=== PATIENT | female | born 1955 | race Caucasian/White ===

== ENCOUNTER 2018-02-05 09:48 | Emergency (ER) | payer MEDICAID, SELFPAY ==
[2018-02-05 09:49] VITALS: PULSE 82; RESP 19; TEMP 36.8; O2SAT 97; BMI 45.3
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
[2018-02-05 09:57] VITALS: BP 165/92
[2018-02-05] MEDS: Ondansetron 4 MG/2 ML Vial IV (10:09)
[2018-02-05] MEDS: 0.9% Normal Saline 1,000 ML 150 ML IV (10:09)
[2018-02-05] MEDS: Morphine 4 MG/ML Syringe IV (10:09)
[2018-02-05 10:24] LABS: Absolute Neutrophil Count 5.7 X10^3/uL (2.0-7.7); Basophil# 0.03 X10^3/uL; Basophil% 0.3 % (0-1); Eosinophil# 0.29 X10^3/uL; Eosinophils% 3.2 % (0-5); Hematocrit 42.9 % (37-47); Hemoglobin 14.3 g/dl (12.0-15.0); Lymphocyte % 26.4 % (19-41); Mean Corp Hgb Conc 33.3 g/gl (32-36); Mean Corpuscular Hgb 29.6 pg (27.0-32.0); Mean Corpuscular Volume 88.8 fL (81-99); Mean Platelet Vol. 9.4 fl (6.2-12.0); Monocyte# 0.66 X10^3/uL; Monocyte% 7.3 % (0-10); Neutrophil # 5.68 X10^3/uL (2.7-7.7); Neutrophil % 62.6 % (47-70); Platelet Count 224 K/mm3 (150-450); RBC Distribution Width CV 13.4 % (11.6-14.6); RBC Distribution Width SD 43.9 fl (35.1-43.9); Red Blood Count 4.83 M/mm3 (4.2-5.4); White Blood Count 9.1 K/mm3 (4.4-11.0)
[2018-02-05 10:25] LABS: POSITIVE COUNT NO; POSITIVE DIFFERENTIAL NO; POSITIVE MORPHOLOGY NO
[2018-02-05 10:40] LABS: ALB/GLOB Ratio 0.9 RATIO (0.9-2.4); AST(SGOT) 18 U/L (15-37); Alanine Aminotransfer ALT/SGPT 31 U/L (13-56); Albumin, Serum 3.5 g/dL (3.2-5.0); Alkaline Phosphatase 71 U/L (45-117); Anion Gap 10 (5-15); BUN 18 mg/dL (7-18); BUN/Creat Ratio 17.3 RATIO (10-20); Calcium,Total 8.2 mg/dL (8.5-10.1); Chloride 110 mmol/L (98-107); Creatinine, Serum 1.04 mg/dL (0.55-1.02); EST Glomerular Filtration Rate 57 mL/min (>60); Est Glom Filt Rate - Afr Amer 69 mL/min (>60); Estimated Creatinine Clearance 53.14 ml/min; Globulin 3.9 g/dL (2.2-4.2); Glucose 128 mg/dL (74-106); Lipase 347 U/L (73-393); Potassium 4.2 mmol/L (3.5-5.1); Protein, Total 7.4 g/dL (6.4-8.2); Sodium Level 142 mmol/L (136-145)
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
[2018-02-05 11:29] VITALS: BP 130/94; PULSE 76; RESP 18; O2SAT 99
[2018-02-05 12:15] VITALS: BP 154/76; PULSE 75; RESP 18; O2SAT 96
[2018-02-05] MEDS: Ketorolac 30 MG/ML Syringe IV (12:24)
[2018-02-05 12:26] LABS: Bacteria 0 SEEN /hpf (None Seen); Mucous, Urine 0 SEEN /hpf (<or=2+); Red Blood Cells-Urine 0 SEEN /hpf (0-5)
[2018-02-05 12:28] LABS: Color, Urine Yellow (Yellow); Glucose, Dipstick Normal (Normal); Ketone-Dipstick Negative (Negative); Leukocyte Esterase-Dipstick 100 /ul (Negative); Nitrite-Dipstick Positive (Negative); Occult Blood-Urine 10 /ul (Negative); Protein-Dipstick Negative (Negative); Urine Bilirubin Dipstick Negative (Negative); Urine Clarity Clear (Clear); Urine Urobilinogen Normal (Normal)
[2018-02-05 12:33] LABS: Squamous Epithelial Cells - UA 0-5 SEEN /hpf (5-10); White Blood Cells 0-5 SEEN /hpf (0-5)
[2018-02-05 13:26] VITALS: BP 141/65; PULSE 78; RESP 18; O2SAT 96
== END 2018-02-05 13:39 | disposition home or self-care (01) ==
PROVIDERS: Emergency Provider Emergency Medicine; Family Provider Student in an Organized Health Care Education/Training Program; PCP Student in an Organized Health Care Education/Training Program
DX: S22.42XA Multiple fractures of ribs, left side, initial encounter for closed fracture (principal); S80.02XA Contusion of left knee, initial encounter; V49.40XA Driver injured in collision with unspecified motor vehicles in traffic accident, initial encounter; Y93.9 Activity, unspecified; Y92.9 Unspecified place or not applicable; Y99.9 Unspecified external cause status; I49.3 Ventricular premature depolarization; E66.9 Obesity, unspecified; Z79.899 Other long term (current) drug therapy
CPT/HCPCS: 70450; 71260; 72125; 73560; 74177; 80053; 81001; 83690; 84484; 85025; 93005; 96361; 96374; 96375; 99285; J7030; Q9967; A4216; J2405

== ENCOUNTER 2021-08-01 15:49 | Inpatient (IN) | payer MEDICARE, MEDICAID, SELFPAY ==
[2021-08-01] VITALS (18 sets, daily range): BP systolic 95–172; BP diastolic 59–106; PULSE 80–145; RESP 15–24; TEMP 36.6–37.1; O2SAT 91–97; BMI 41.0; BMI 39.5
--- NOTE | 2021-08-01 16:16 | EKG12_ITS ---
Test Reason : PALPITATIONS Blood Pressure : / mmHG Vent. Rate : 136 BPM Atrial Rate : 136 BPM P-R Int : 000 ms QRS Dur : 090 ms QT Int : 314 ms P-R-T Axes : 000 046 107 degrees QTc Int : 472 ms Atrial fibrillation with premature ventricular or aberrantly conducted complexes Nonspecific T wave abnormality Abnormal ECG Confirmed by ALEXANDER BARRAZA, ISHMAEL ([id number]), department editor JAILENE KEARNEY ([id number]) on 08/04/2021 10:54:23 AM Referred By: PAUL Confirmed By:ISHMAEL MUNOZ MD
--- NOTE | 2021-08-01 16:19 | EX.ED.DYSGE1 ---
HPI History of Present Illness Chief Complaint: Palpitations Narrative Narrative: Patient presents with shortness of breath since last night last night was mostly at rest, now only with exertion. She feels no palpitations, she does not know exactly when this started. She has been feeling somewhat weak over the past few days. No recent fever or chills. She is denying chest pain. No back pain or tearing sensation. No recent weight loss or neck pain. No lower extreme edema or calf pain or recent DVT or PE risk factors. PFSH PFS Medical History Arthritis High cholesterol Home Medications NK 08/01/21 [History Last Taken Unknown] Allergy/AdvReac Type Severity Reaction Status Date / Time piperacillin [From Zosyn] Allergy Rash Verified 08/01/21 15:54 tazobactam [From Zosyn] Allergy Rash Verified 08/01/21 15:54 Surgical History H/O total hip arthroplasty Social History Smoking Status: Former smoker ROS ROS ED ROS Narrative Past medical history: Patient has not had any medical care in the past few years, she does not take any medication she has not had any blood pressure checks. Medications: None Social history: Noncontributory Review of systems: All systems negative except as indicated General: No fever. Generalized weakness as in HPI Eyes: No visual changes ENT: No upper airway congestion, normal voice Neck: No neck pain Cardiovascular: No chest pain Respiratory: Dyspnea as in HPI Gastrointestinal: No abdominal pain, nausea vomiting or diarrhea Genitourinary: No dysuria Musculoskeletal: Denies myalgias no difficulty with ambulation Skin: No rash Neurological: No memory loss, confusion or any focal weakness Psych: No recent behavioral changes Hematologic: No easy bleeding or easy bruising EXAM Physical Exam Narrative Exam Narrative: Physical exam General: Well nourished, Well developed, No Acute Distress. She appears comfortable. Head: Normocephalic, Atraumatic Eyes: Conjunctiva not pale ENT: Moist mucous membranes Neck: Supple, Nontender, No lymphadenopathy Cardiovascular: Irregular tachycardia no obvious murmur Respiratory: No distress, CTA bilaterally Abdomen: Soft, Nontender, Nondistended Back: Nontender, Normal Inspection. Negative for: CVA tenderness Extremities: Nontender, No edema Skin: Normal color, No rash Neurological: Alert, Normal Strength, Normal Sensation Psychological: Normal affect Const Vital Signs: 08/01/21 15:50 08/01/21 16:25 Temperature 98 F Temperature Source Temporal Pulse Rate 145 H 87 Respiratory Rate 16 17 Blood Pressure 172/93 H 142/92 H Blood Pressure Mean 119 108 Pulse Ox 93 94 Oxygen Delivery Method Room Air Room Air MDM MDM MDM Narrative Medical decision making narrative: Patient is found to have new onset A. fib. I gave her Cardizem her rate has improved therefore I gave her oral Cardizem. I gave her Lovenox. Because this is new onset and I am not sure when this started I will admit for further work-up. Lab Data Labs: Laboratory Results - last 24 hr 08/01/21 08/01/21 08/01/21 15:55 15:55 15:55 WBC 12.4 H RBC 5.71 H Hgb 17.2 H Hct 51.5 H MCV 90.2 MCH 30.1 MCHC 33.4 RDW Std Deviation 45.0 H RDW Coeff of Kurtis 13.6 Plt Count 214 MPV 9.8 Immature Gran % (Auto) 0.300 Neut % (Auto) 67.6 Lymph % (Auto) 23.7 Blackford % (Auto) 7.2 Eos % (Auto) 0.8 Baso % (Auto) 0.4 Absolute Neuts (auto) 8.4 H Absolute Lymphs (auto) 2.94 Nucleated RBC % 0 Sodium 142 Potassium 4.2 Chloride 113 H Carbon Dioxide 22.0 Anion Gap 7 BUN 17 Creatinine 1.26 H Estim Creat Clear Calc 42.13 Est GFR (MDRD) Af Amer 54 L Est GFR (MDRD) Non-Af 45 L BUN/Creatinine Ratio 13.5 Glucose 118 H Calcium 9.3 Magnesium 1.8 Total Bilirubin 0.70 AST 17 ALT 27 Alkaline Phosphatase 76 Troponin I High Sens 106 H B-Natriuretic Peptide 613.7 H Total Protein 7.9 Albumin 3.8 Globulin 4.1 Albumin/Globulin Ratio 0.9 TSH 1.80 EKG Initial EKG: Comments: Atrial fibrillation with a rate of 136. Normal QTC. No obvious ischemic changes. Interpreted by emergency doctor Discharge Plan Triage Chief Complaint: Palpitations ED Provider: Edi Michelle Dx/Rx/DC Orders Clinical Impression: Atrial fibrillation, new onset Prescriptions: No Action NK RF: 0 Primary Care Provider: Bean Brower Referrals: Bean Brower DO [Primary Care Provider] - Disposition Disposition: Acute Care Hospital [facility]
[2021-08-01] MEDS: dilTIAZem 25 MG/5 ML Vial 20 MG IV BOLUS (16:21)
[2021-08-01 16:39] LABS: Absolute Lymphocyte Count 2.94 X10^3/uL (0.83-4.51); Absolute Neutrophil Count 8.4 X10^3/uL (2.0-7.7); Basophil# 0.05 X10^3/uL; Basophil% 0.4 % (0-1); Eosinophils% 0.8 % (0-5); Hematocrit 51.5 % (37-47); Hemoglobin 17.2 g/dL (12.0-15.0); Lymphocyte # 2.94 X10^3/ul (0.83-4.51); Lymphocyte % 23.7 % (19-41); Mean Corp Hgb Conc 33.4 g/dL (32-36); Mean Corpuscular Hgb 30.1 pg (27.0-32.0); Mean Corpuscular Volume 90.2 fL (81-99); Mean Platelet Vol. 9.8 fl (6.2-12.0); Monocyte# 0.89 X10^3/uL; Monocyte% 7.2 % (0-10); NRBC Flagged by Analyzer 0 % (0-5); Neutrophil # 8.37 X10^3/uL (2.7-7.7); Neutrophil % 67.6 % (47-70); Platelet Count 214 K/mm3 (150-450); RBC Distribution Width CV 13.6 % (11.6-14.6); Red Blood Count 5.71 M/mm3 (4.2-5.4); White Blood Count 12.4 K/mm3 (4.4-11.0)
[2021-08-01 17:07] LABS: ALB/GLOB Ratio 0.9 RATIO (0.9-2.4); AST(SGOT) 17 U/L (15-37); Alanine Aminotransfer ALT/SGPT 27 U/L (13-56); Albumin, Serum 3.8 g/dL (3.2-5.0); Alkaline Phosphatase 76 U/L (45-117); Anion Gap 7 (5-15); BUN 17 mg/dL (7-18); BUN/Creat Ratio 13.5 RATIO (10-20); Calcium,Total 9.3 mg/dL (8.5-10.1); Chloride 113 mmol/L (98-107); Creatinine, Serum 1.26 mg/dL (0.55-1.02); EST Glomerular Filtration Rate 45 mL/min (>60); Est Glom Filt Rate - Afr Amer 54 mL/min (>60); Estimated Creatinine Clearance 42.13 ml/min; Globulin 4.1 g/dL (2.2-4.2); Glucose 118 mg/dL (74-106); Magnesium 1.8 mg/dL (1.6-2.6); Potassium 4.2 mmol/L (3.5-5.1); Protein, Total 7.9 g/dL (6.4-8.2); Sodium Level 142 mmol/L (136-145); Troponin-I HS 106 pg/mL (3.0-54.0)
[2021-08-01 17:33] LABS: BNP,B-Type NATRIURETIC PEPTIDE 613.7 pg/mL (0-100)
[2021-08-01] MEDS: dilTIAZem CD 240 MG Capsule PO (17:55)
[2021-08-01] MEDS: Enoxaparin 120 MG/0.8 ML Syringe SC (17:55)
--- NOTE | 2021-08-01 18:35 | PCM.HP.STD ---
HPI - General General Date of Admission: 08/01/21 Date of Service: 08/01/21 Chief Complaint: shortness of breath HPI Narrative BEULAH MCPHERSON, is a 65 F who presents presents with shortness of breath. Patient has had palpitations and shortness of breath for some time now but would resolve spontaneously but beginning last night she was very short of breath. Did not getting better so she presented to the emergency room. She was found to be in A. fib with RVR and received 20 mg of IV diltiazem. Helped her heart rate from the 120s to 100s and when to go back up in the 120s again. Patient thinks that she may have had A. fib before given the palpitations but has never sought attention for this. Patient has not sought medical attention for the past 3 years. 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 She denies any chest pain and is currently breathing fine on room air at 96%. [facility] Medical History Arthritis COVID Former smoker High cholesterol Kidney stones Migraines Osteoarthritis (arthritis due to wear and tear of joints) Home Medications acetaminophen 500 mg PO DAILY PRN 08/01/21 [History Last Taken 07/31/21] ibuprofen 800 mg PO TID PRN 08/01/21 [History Last Taken 08/01/21] Allergy/AdvReac Type Severity Reaction Status Date / Time piperacillin [From Zosyn] Allergy Rash Verified 08/01/21 15:54 tazobactam [From Zosyn] Allergy Rash Verified 08/01/21 15:54 Family History Father CVA (cerebral vascular accident) Colon cancer Surgical History H/O total hip arthroplasty Social History Smoking Status: Former smoker ROS ROS Narrative All review of systems were negative except as mentioned above in the history of present illness and the other review of systems. Vital Signs Vital Signs Vital Signs: 08/01/21 15:50 08/01/21 16:25 08/01/21 17:00 Temperature 36.6 C Temperature Source Temporal Pulse Rate 145 H 87 101 H Respiratory Rate 16 17 16 Blood Pressure 172/93 H 142/92 H 120/90 H Blood Pressure Mean 119 108 100 Pulse Ox 93 94 94 Oxygen Delivery Method Room Air Room Air Room Air 08/01/21 18:13 Temperature 36.6 C Temperature Source Temporal Pulse Rate 126 H Respiratory Rate 20 H Blood Pressure 114/95 H Blood Pressure Mean 101 Pulse Ox 96 Oxygen Delivery Method Room Air Weight Weight: 118.8 kg Body Mass Index (BMI) 41.0 Physical Exam Const alert Constitutional Narrative: No respiratory distress. No conversational dyspnea. General Appearance: cooperative HEENT normocephalic and head/scalp atraumatic Eyes Eyes Narrative: No icterus Neck no lymphadenopathy and no JVD Resp normal respiratory effort, no retractions, no use of accessory muscles and clear to auscultation bilaterally Cardio Cardio Narrative: Irregularly irregular GI normal to inspection, nondistended, normoactive bowel sounds, soft to palpation, non-tender and non-distended Extremity normal to inspection and full ROM Skin no rashes or lesions noted Neuro Sensorium / Orientation: awake and alert Psych affect normal Results Lab / Micro Data Attestation: I reviewed the patient's lab results. Result Diagrams: 08/01/21 15:55 08/01/21 15:55 Labs: Laboratory Results - last 24 hr 08/01/21 15:55: WBC 12.4 H, RBC 5.71 H, Hgb 17.2 H, Hct 51.5 H, MCV 90.2, MCH 30.1, MCHC 33.4, RDW Std Deviation 45.0 H, RDW Coeff of Kurtis 13.6, Plt Count 214, MPV 9.8, Immature Gran % (Auto) 0.300, Neut % (Auto) 67.6, Lymph % (Auto) 23.7, Mcdonough % (Auto) 7.2, Eos % (Auto) 0.8, Baso % (Auto) 0.4, Absolute Neuts (auto) 8.4 H, Absolute Lymphs (auto) 2.94, Nucleated RBC % 0 08/01/21 15:55: Sodium 142, Potassium 4.2, Chloride 113 H, Carbon Dioxide 22.0, Anion Gap 7, BUN 17, Creatinine 1.26 H, Estim Creat Clear Calc 42.13, Est GFR (MDRD) Af Amer 54 L, Est GFR (MDRD) Non-Af 45 L, BUN/Creatinine Ratio 13.5, Glucose 118 H, Calcium 9.3, Magnesium 1.8, Total Bilirubin 0.70, AST 17, ALT 27, Alkaline Phosphatase 76, Troponin I High Sens 106 H, Total Protein 7.9, Albumin 3.8, Globulin 4.1, Albumin/Globulin Ratio 0.9, TSH 1.80 08/01/21 15:55: B-Natriuretic Peptide 613.7 H EKG Initial EKG: Attestation: I personally reviewed and interpreted this EKG as follows: Prior EKG tracings: available for review EKG Rhythm Intrepretation: Atrial Fibrillation (With RVR) Assessment & Plan Assessment/Plan (1) Atrial fibrillation, new onset: (2) Elevated troponin I level: PLAN: 1. Atrial fibrillation with RVR New diagnosis but suspect the patient has probably had A. fib for some time she is just not sought attention for her palpitations in the past Patient received oral as well as IV diltiazem in the emergency room but still tachycardic. We will give her another bolus and started on diltiazem drip Check 2D echocardiogram Consult cardiology Check TSH Will anticoagulate with enoxaparin for now. Barring any kind of valvular abnormalities patient can probably change attendant to 10a inhibitor 2. Elevated troponins Suspect due to demand mismatch given A. fib with RVR Cycle troponins 3. Chronic kidney disease stage IIIa Last creatinine was slightly better from 2018 Continue to monitor for now 4. Polycythemia Unclear significance Continue to monitor Patient was very concerned about the but told her that she is not seen a physician in years and this will need to be followed up as outpatient Patient is a non-smoker and has no underlying lung disease May require hematology evaluation but that can be done as outpatient 5. VTE prophylaxis not indicated as she will be anticoagulated 6. COVID-19 vaccination status: Patient is unvaccinated for COVID-19. She has at least had one time confirmed case of Covid and 2020 she was sick in May but was not tested at that time. 7. CODE STATUS: Addressed with the patient. Patient wishes to be full CODE STATUS. Charges/Coding Visit Charges Inpatient E&M: 32711 Init Hosp L3
--- NOTE | 2021-08-01 19:01 | ECHOCS_ITS ---
Reason For Study: Afib, Aflutter Procedure This was a 2D Doppler, Color Flow transthoracic echocardiogram. Contrast injection was performed. Exam performed portable in patient room. Left Ventricle Normal LV size. The estimated ejection fraction is 25 %. Moderately severe global left ventricular systolic dysfunction. There is moderate to severe global hypokinesis of the left ventricle. Right Ventricle Normal RV size. Normal systolic function. Atria Normal left atrium. Normal right atrium. Mitral Valve Normal mitral valve. Tricuspid Valve Normal tricuspid valve. Mild tricuspid valve insufficiency. Pulmonary artery systolic pressure is 28 mmHg. Aortic Valve Trisinus/trileaflet aortic valve. Pulmonic Valve The pulmonic valve is not well visualized. Great Vessels Normal aortic root. The pulmonary artery is normal size. Normal inferior vena cava. Pericardium/Pleural No pericardial effusion. Medication Diluted definity 3ml given slow IV push to enhance endocardial definition. MMode/2D Measurements & Calculations LVIDd: 5.7 cm IVSd: 1.0 cm Ao root diam: 3.3 cm LVIDs: 5.3 cm LVPWd: 0.88 cm RVDd: 4.1 cm FS: 5.9 % LAV(MOD-bp): 53.3 ml LVAd ap4: 24.1 cm2 SV(MOD-sp4): 11.9 ml LAV(MOD-bp) Indexed: 24.0 ml/m2 LVLd ap4: 6.9 cm LAV(MOD-sp2): 61.0 ml EDV(MOD-sp4): 67.4 ml LAV(MOD-sp4): 47.6 ml EDV(sp4-el): 71.6 ml LVAs ap4: 20.7 cm2 LVLs ap4: 6.2 cm ESV(MOD-sp4): 55.5 ml ESV(sp4-el): 58.1 ml EF(MOD-sp4): 17.7 % EF(sp4-el): 18.9 % SV(sp4-el): 13.6 ml LA A4 area: 18.7 cm2 LA dimension(2D): 4.5 cm RA A4 area: 15.3 cm2 Doppler Measurements & Calculations MV E max tayla: 71.8 cm/sec Ao V2 max: 81.8 cm/sec LV V1 max: 64.7 cm/sec Ao max P.7 mmHg LV V1 max P.7 mmHg Ao V2 mean: 60.3 cm/sec Ao mean P.6 mmHg Ao V2 VTI: 15.2 cm TR max tayla: 245.3 cm/sec TR max P.1 mmHg ECHO/Echo Complete W/ Contrast Interpretation Summary Normal LV size. The estimated ejection fraction is 25 %. Moderately severe global left ventricular systolic dysfunction. There is moderate to severe global hypokinesis of the left ventricle. Pulmonary artery systolic pressure is 28 mmHg. Contrast injection was performed. Ordering Physician: Doug Barrera Referring Physician: Bean Brower Performed By: Bri Remy, ALIREZA, RVT
[2021-08-01] MEDS: 0.9% Saline Lock 10 ML Syringe IV (19:49)
[2021-08-01] MEDS: dilTIAZem 25 MG/5 ML Vial 10 MG IV BOLUS (19:49)
[2021-08-01] MEDS: 0.9% Normal Saline 1,000 ML 150 ML IV (19:57)
[2021-08-01 20:05] LABS: Troponin-I HS 88 pg/mL (3.0-54.0)
[2021-08-01 22:19] LABS: Troponin-I HS 94 pg/mL (3.0-54.0)
[2021-08-02] VITALS (18 sets, daily range): BP systolic 113–143; BP diastolic 64–99; PULSE 65–101; RESP 13–21; TEMP 36.7–37; O2SAT 91–98
[2021-08-02 06:08] LABS: Absolute Neutrophil Count 5.3 X10^3/uL (2.0-7.7); Basophil# 0.06 X10^3/uL; Basophil% 0.7 % (0-1); Eosinophils% 2.2 % (0-5); Hematocrit 43.4 % (37-47); Hemoglobin 14.3 g/dL (12.0-15.0); Lymphocyte % 31.7 % (19-41); Mean Corp Hgb Conc 32.9 g/dL (32-36); Mean Corpuscular Hgb 28.9 pg (27.0-32.0); Mean Corpuscular Volume 87.9 fL (81-99); Mean Platelet Vol. 9.9 fl (6.2-12.0); Monocyte# 0.66 X10^3/uL; Monocyte% 7.2 % (0-10); NRBC Flagged by Analyzer 0 % (0-5); Neutrophil # 5.32 X10^3/uL (2.7-7.7); Platelet Count 171 K/mm3 (150-450); RBC Distribution Width CV 13.6 % (11.6-14.6); RBC Distribution Width SD 43.8 fl (35.1-43.9); Red Blood Count 4.94 M/mm3 (4.2-5.4); White Blood Count 9.2 K/mm3 (4.4-11.0)
[2021-08-02] MEDS: Acetaminophen 325 MG Tablet 650 MG PO ×2 (06:20→14:49)
[2021-08-02 06:51] LABS: Anion Gap 8 (5-15); BUN 15 mg/dL (7-18); BUN/Creat Ratio 16.9 RATIO (10-20); Calcium,Total 8.3 mg/dL (8.5-10.1); Chloride 114 mmol/L (98-107); Cholesterol 143 mg/dL (200); Creatinine, Serum 0.89 mg/dL (0.55-1.02); EST Glomerular Filtration Rate 67 mL/min (>60); Est Glom Filt Rate - Afr Amer 81 mL/min (>60); Estimated Creatinine Clearance 59.65 ml/min; Glucose 115 mg/dL (74-106); High Density Lipoprotein 27 mg/dL; Potassium 3.9 mmol/L (3.5-5.1); Sodium Level 141 mmol/L (136-145); Thyroid Stim Hormone (TSH) 1.62 uIU/mL (0.358-3.74); Triglycerides 147 mg/dL; Very Low Density Lipoprotein 29 mg/dL (5-40)
[2021-08-02] MEDS: Enoxaparin 120 MG/0.8 ML Syringe SC (08:37)
[2021-08-02] MEDS: 0.9% Saline Lock 10 ML Syringe IV (09:24)
[2021-08-02] MEDS: Metoprolol Tartrate 50 MG Tablet PO (09:24)
--- NOTE | 2021-08-02 09:45 | RAD_ITS ---
STUDY: X-RAY CHEST REASON FOR EXAM: Female, 65 years old. Shortness of breath TECHNIQUE: Frontal and lateral views of the chest. COMPARISON: September 09, 2013 FINDINGS: The lungs are clear and expanded. There is no demonstrated pleural abnormality. Normal size heart. Normal mediastinum and luis alfredo. Normal visualized pulmonary arteries. Normal visualized aortic arch and descending thoracic aorta. There are diffuse degenerative changes of the visualized thoracic spine. Normal visualized ribs, clavicles, and shoulders. There is no demonstrated abnormality of the visualized soft tissue structures of the upper abdomen. RAD/Chest PA and Lateral IMPRESSION: Degenerative changes, as described above. No demonstrated acute cardiopulmonary process. Electronically Signed: Jordi Tirado MD at 13:02 EST Reading Location ID and State: [facility] / [place] , Service support ,
--- NOTE | 2021-08-02 09:45 | RAD_ITS ---
STUDY: X-RAY - ABDOMEN/PELVIS REASON FOR EXAM: Female, 65 years old. Abdominal pain TECHNIQUE: AP supine and upright views of the abdomen and pelvis. COMPARISON: None. FINDINGS: Normal visualized lung bases. There is an unremarkable bowel gas pattern. There is no demonstrated free abdominal air. Normal soft tissue structures. There are diffuse degenerative changes of the visualized lumbar spine. There are bilateral hip replacements. RAD/Abd Inc Decub and/or Erect IMPRESSION: No obstruction. Electronically Signed: Jordi Tirado MD at 12:57 EST ,
--- NOTE | 2021-08-02 11:05 | CASEMGMT ---
BOB GUADARRAMA Assessment: Face to Face with pt for initial transition planning/care coordination assessment. BOB GUADARRAMA introduced self and role at [facility], pt voices understanding and consents to assessment. Pt is A/O x4 and answers all questions appropriately at this time. Pt sitting up in bed with O2 on in no distress. Pt had a visitor at bedside who stepped out during assessment. Care providers, pharmacy, and demographics verified/updated. Admitting Dx: Afib RVR PCP: [facility] Specialists:Pt denies. Preferred Pharmacy: [facility] if dc is on Wednesday, otherwise [facility]. Insurance: [employer]A HARVEY- Pt reports she has an [employer] Supplemental that she could not find the card to bring in. Prescription Benefit: yes LW/HPOA: Pt denies having a LW/DPOA and denies need for info regarding AD. LNOK: Ritu Velásquez, cousin Living Arrangements: Pt lives alone in a two story house with a ramp to enter. Pt reports she is I in ADL's and denies concerns at home. Transportation: Pt drives self and denies concerns with transportation. 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 Pt uses a cane normally. She has a hospital bed, BSC, 2 electric w/c, tomographic tech and walkers. Pt states she has had [facility] in the past and denies SNF stays. Pt states no concerns with going home at time of dc. She denies need for HHC. Pt states no further concerns/needs. CM to follow. Advised pt to ask CM if any further question/concerns/needs arise, voices understanding. Pt Goal: Home Plan: Home, follow for anticoag.
--- NOTE | 2021-08-02 12:05 | PN.HOSP_ITS ---
Subjective Subjective Feels short of breath today. Feels that her abdomen is getting more distended. Objective Data Objective Data Vital Signs: Vital Signs Temp Pulse Resp BP Pulse Ox 37.0 C 65 17 113/70 93 08/02/21 10:11 08/02/21 11:17 08/02/21 10:11 08/02/21 10:11 08/02/21 10:11 Oxygen Flow Rate (L/min) 2 Oxygen Delivery Method Room Air Weight: 114.5 kg Body Mass Index (BMI) 39.5 Intake & Output: Intake and Output for Last 24 Hours 07/31/21 08/01/21 08/02/21 23:59 23:59 23:59 Intake Total 1320.83 / 1325.83 547.58 / 547.58 Output Total 500 / 500 Balance 1320.83 / 1325.83 47.58 / 47.58 Lab / Micro Data Result Diagrams: 08/02/21 05:24 08/02/21 05:24 Labs: Laboratory Results - last 24 hr 08/01/21 15:55: WBC 12.4 H, RBC 5.71 H, Hgb 17.2 H, Hct 51.5 H, MCV 90.2, MCH 30.1, MCHC 33.4, RDW Std Deviation 45.0 H, RDW Coeff of Kurtis 13.6, Plt Count 214, MPV 9.8, Immature Gran % (Auto) 0.300, Neut % (Auto) 67.6, Lymph % (Auto) 23.7, [place] % (Auto) 7.2, Eos % (Auto) 0.8, Baso % (Auto) 0.4, Absolute Neuts (auto) 8.4 H, Absolute Lymphs (auto) 2.94, Nucleated RBC % 0 08/01/21 15:55: Sodium 142, Potassium 4.2, Chloride 113 H, Carbon Dioxide 22.0, Anion Gap 7, BUN 17, Creatinine 1.26 H, Estim Creat Clear Calc 42.13, Est GFR (MDRD) Af Amer 54 L, Est GFR (MDRD) Non-Af 45 L, BUN/Creatinine Ratio 13.5, Glucose 118 H, Calcium 9.3, Magnesium 1.8, Total Bilirubin 0.70, AST 17, ALT 27, Alkaline Phosphatase 76, Troponin I High Sens 106 H, Total Protein 7.9, Albumin 3.8, Globulin 4.1, Albumin/Globulin Ratio 0.9, TSH 1.80 08/01/21 15:55: B-Natriuretic Peptide 613.7 H 08/01/21 19:25: Troponin I High Sens 88 H 08/01/21 21:46: Troponin I High Sens 94 H 08/02/21 05:24: WBC 9.2, RBC 4.94, Hgb 14.3, Hct 43.4, MCV 87.9, MCH 28.9, MCHC 32.9, RDW Std Deviation 43.8, RDW Coeff of Kurtis 13.6, Plt Count 171, MPV 9.9, Immature Gran % (Auto) 0.200, Neut % (Auto) 58.0, Lymph % (Auto) 31.7, [place] % (Auto) 7.2, Eos % (Auto) 2.2, Baso % (Auto) 0.7, Absolute Neuts (auto) 5.3, Absolute Lymphs (auto) 2.90, Nucleated RBC % 0 08/02/21 05:24: Sodium 141, Potassium 3.9, Chloride 114 H, Carbon Dioxide 19.0 L , Anion Gap 8, BUN 15, Creatinine 0.89, Estim Creat Clear Calc 59.65, Est GFR (MDRD) Af Amer 81, Est GFR (MDRD) Non-Af 67, BUN/Creatinine Ratio 16.9, Glucose 115 H, Calcium 8.3 L, Triglycerides 147, Cholesterol 143, LDL Cholesterol 87, VLDL Cholesterol 29, HDL Cholesterol 27 L, TSH 1.62 Physical Exam Const alert and no apparent distress HEENT Head and Scalp: normocephalic Resp normal respiratory effort, no retractions, no use of accessory muscles and clear to auscultation bilaterally Cardio regular rate, regular rhythm, S1 normal heart sound and S2 normal heart sound GI normal to inspection, nondistended, normoactive bowel sounds, soft to palpation, non-tender and non-distended Extremity normal to inspection and full ROM Neuro oriented x3 Sensorium / Orientation: awake, alert and oriented to person Psych affect normal Assessment & Plan Assessment/Plan (1) Atrial fibrillation, new onset: (2) Elevated troponin I level: PLAN: 1. Atrial fibrillation with RVR New diagnosis but suspect the patient has probably had A. fib for some time she is just not sought attention for her palpitations in the past Patient received oral as well as IV diltiazem in the emergency room but still tachycardic. We will give her another bolus and started on diltiazem drip Check 2D echocardiogram Consult cardiology TSH with a normal limits Will anticoagulate with enoxaparin for now. Barring any kind of valvular abnormalities patient can probably changeover operator to 10a inhibitor 2. Elevated troponins Suspect due to demand mismatch given A. fib with RVR Cycle troponins 3. Chronic kidney disease stage IIIa Last creatinine was slightly better from 2018 Continue to monitor for now 4. Erythrocytosis Down today to normal range. 17,000 may have been lab error. Patient was very concerned about the but told her that she is not seen a physician in years and this will need to be followed up as outpatient Patient is a non-smoker and has no underlying lung disease May require hematology evaluation but that can be done as outpatient 5. VTE prophylaxis not indicated as she will be anticoagulated 6. COVID-19 vaccination status: Patient is unvaccinated for COVID-19. She has at least had one time confirmed case of Covid and 2020 she was sick in May but was not tested at that time. 7. CODE STATUS: Addressed with the patient. Patient wishes to be full CODE STATUS. Charges/Coding Visit Charges Inpatient E&M: 98698 Subs Hosp L2
--- NOTE | 2021-08-02 13:52 | PCM.CONS.C ---
Assessment & Plan Assessment/Plan (1) Atrial fibrillation, new onset: PLAN: She appears to present with atrial fibrillation with a rapid ventricular response rate. The duration of the above is unclear. Her preliminary echocardiogram demonstrates severe left ventricular systolic dysfunction I would recommend the following: Carvedilol 6.25 mg twice a day Eliquis 5 mg twice a day Entresto Lasix 40 mg once a day Her blood pressure on admission was elevated and I would not be surprised if she is a hypertensive. Depending on the findings further recommendations will be made. HPI Consult Data Date of Consult: 08/02/21 HPI Narrative HPI Narrative: BEULAH MCPHERSON, is a 65 F who presents to the emergency room with shortness of breath and palpitations which has been going on over the last 2 to 3 weeks. She says that she is always known that she has had palpitations for a while but this shortness of breath has been getting much worse. She denies any cough but she has had shortness of breath with exertion but no pedal edema she denies any chest pain no dizziness no diaphoresis no near syncope or syncope. She has been compliant with her medications which is actually very little. In the emergency room she was noted to be in atrial fibrillation with a rapid ventricular response rate she was treated with intravenous diltiazem and subsequently admitted. Cardiology was called for further evaluation and management. [facility] Medical History Arthritis COVID Former smoker High cholesterol Kidney stones Migraines Osteoarthritis (arthritis due to wear and tear of joints) Home Medications acetaminophen 500 mg PO DAILY PRN 08/01/21 [History Last Taken 07/31/21] ibuprofen 800 mg PO TID PRN 08/01/21 [History Last Taken 08/01/21] Allergy/AdvReac Type Severity Reaction Status Date / Time piperacillin [From Zosyn] Allergy Rash Verified 08/01/21 15:54 tazobactam [From Zosyn] Allergy Rash Verified 08/01/21 15:54 Family History Father CVA (cerebral vascular accident) Colon cancer Surgical History H/O total hip arthroplasty Social History Smoking Status: Former smoker ROS Constitutional Constitutional: Denies fever(s) or weight loss Eyes Eyes: Reports systems reviewed and no addt'l complaints, except as documented ENT HEENT: Reports systems reviewed and no addt'l complaints, except as documented Cardiovascular Cardiovascular: Denies chest pain at rest, chest pain with activity, dyspnea at rest, dyspnea on exertion, edema, palpitations or paroxysmal nocturnal dyspnea Respiratory/Chest Respiratory/Chest: Reports dyspnea on exertion, shortness of breath at rest and shortness of breath with exertion; Denies productive cough Gastrointestinal Gastrointestinal: Denies change in bowel habits, nausea, vomiting or weight changes Genitourinary Genitourinary: Denies difficulty urinating Musculoskeletal Musculoskeletal: Denies joint stiffness or muscle weakness Integumentary Integumentary: Denies lesions Neurologic Neurologic: Denies dizziness or syncope Psychiatric Psychiatric: Denies anxiety Endocrine Endocrinology: Denies excessive sweating or fatigue Hematologic/Lymphatic Hematologic/Lymphatic: Denies anemia Allergic/Immunologic Allergic/Immunologic: Denies seasonal rhinorrhea Physical Exam Const alert, oriented x3 and no apparent distress General Appearance: cooperative HEENT hearing grossly normal bilaterally Head and Scalp: atraumatic Eyes EOMs intact bilaterally Neck General: normal visual inspection Chest inspection of chest normal and palpation of chest normal Resp normal respiratory effort Auscultation: clear to auscultation bilaterally Cardio S1 normal heart sound and S2 normal heart sound Jugular Venous Distention: JVD Rhythm: abnormal rhythm irregularly irregular GI normal to inspection, nondistended, normoactive bowel sounds Extremity normal capillary refill and no pedal edema Peripheral Pulses: Yes pulses 2+ throughout and femoral pulses present Skin no rashes or lesions noted Neuro oriented x3 and CN's II-XII intact bilaterally Psych Appearance: grossly normal and appropriate Risk Stratification Risk Stratification Applicable: No Objective Data Vital Signs: Vital Signs Temp Pulse Resp BP Pulse Ox 98.6 F 65 17 113/70 93 08/02/21 10:11 08/02/21 11:17 08/02/21 10:11 08/02/21 10:11 08/02/21 10:11 Oxygen Flow Rate (L/min) 2 Oxygen Delivery Method Room Air Weight: 252 lb 6.868 oz Body Mass Index (BMI) 39.5 Intake & Output: Intake and Output for Last 24 Hours 07/31/21 08/01/21 08/02/21 23:59 23:59 23:59 Intake Total 1320.83 / 1325.83 997.58 / 997.58 Output Total 850 / 850 Balance 1320.83 / 1325.83 147.58 / 147.58 Lab / Micro Data Result Diagrams: 08/02/21 05:24 08/02/21 05:24 Labs: Laboratory Results - last 24 hr 08/01/21 15:55: WBC 12.4 H, RBC 5.71 H, Hgb 17.2 H, Hct 51.5 H, MCV 90.2, MCH 30.1, MCHC 33.4, RDW Std Deviation 45.0 H, RDW Coeff of Kurtis 13.6, Plt Count 214, MPV 9.8, Immature Gran % (Auto) 0.300, Neut % (Auto) 67.6, Lymph % (Auto) 23.7, [place] % (Auto) 7.2, Eos % (Auto) 0.8, Baso % (Auto) 0.4, Absolute Neuts (auto) 8.4 H, Absolute Lymphs (auto) 2.94, Nucleated RBC % 0 08/01/21 15:55: Sodium 142, Potassium 4.2, Chloride 113 H, Carbon Dioxide 22.0, Anion Gap 7, BUN 17, Creatinine 1.26 H, Estim Creat Clear Calc 42.13, Est GFR (MDRD) Af Amer 54 L, Est GFR (MDRD) Non-Af 45 L, BUN/Creatinine Ratio 13.5, Glucose 118 H, Calcium 9.3, Magnesium 1.8, Total Bilirubin 0.70, AST 17, ALT 27, Alkaline Phosphatase 76, Troponin I High Sens 106 H, Total Protein 7.9, Albumin 3.8, Globulin 4.1, Albumin/Globulin Ratio 0.9, TSH 1.80 08/01/21 15:55: B-Natriuretic Peptide 613.7 H 08/01/21 19:25: Troponin I High Sens 88 H 08/01/21 21:46: Troponin I High Sens 94 H 08/02/21 05:24: WBC 9.2, RBC 4.94, Hgb 14.3, Hct 43.4, MCV 87.9, MCH 28.9, MCHC 32.9, RDW Std Deviation 43.8, RDW Coeff of Kurtis 13.6, Plt Count 171, MPV 9.9, Immature Gran % (Auto) 0.200, Neut % (Auto) 58.0, Lymph % (Auto) 31.7, [place] % (Auto) 7.2, Eos % (Auto) 2.2, Baso % (Auto) 0.7, Absolute Neuts (auto) 5.3, Absolute Lymphs (auto) 2.90, Nucleated RBC % 0 08/02/21 05:24: Sodium 141, Potassium 3.9, Chloride 114 H, Carbon Dioxide 19.0 L, Anion Gap 8, BUN 15, Creatinine 0.89, Estim Creat Clear Calc 59.65, Est GFR (MDRD) Af Amer 81, Est GFR (MDRD) Non-Af 67, BUN/Creatinine Ratio 16.9, Glucose 115 H, Calcium 8.3 L, Triglycerides 147, Cholesterol 143, LDL Cholesterol 87, VLDL Cholesterol 29, HDL Cholesterol 27 L, TSH 1.62 Cardiology Labs/Tests 08/01/21 15:55: WBC 12.4 H, RBC 5.71 H, Hgb 17.2 H, Hct 51.5 H, MCV 90.2, MCH 30.1, MCHC 33.4, Plt Count 214, MPV 9.8, Immature Gran % (Auto) 0.300, Neut % (Auto) 67.6, Lymph % (Auto) 23.7, [place] % (Auto) 7.2, Eos % (Auto) 0.8, Baso % (Auto) 0.4, Absolute Neuts (auto) 8.4 H, Nucleated RBC % 0 08/01/21 15:55: Sodium 142, Potassium 4.2, Chloride 113 H, Carbon Dioxide 22.0, Anion Gap 7, BUN 17, Creatinine 1.26 H, Est GFR (MDRD) Af Amer 54 L, Est GFR (MDRD) Non-Af 45 L, BUN/Creatinine Ratio 13.5, Glucose 118 H, Calcium 9.3, Magnesium 1.8, Total Bilirubin 0.70 08/01/21 15:55: B-Natriuretic Peptide 613.7 H 08/02/21 05:24: WBC 9.2, RBC 4.94, Hgb 14.3, Hct 43.4, MCV 87.9, MCH 28.9, MCHC 32.9, Plt Count 171, MPV 9.9, Immature Gran % (Auto) 0.200, Neut % (Auto) 58.0, Lymph % (Auto) 31.7, [place] % (Auto) 7.2, Eos % (Auto) 2.2, Baso % (Auto) 0.7, Absolute Neuts (auto) 5.3, Nucleated RBC % 0 08/02/21 05:24: Sodium 141, Potassium 3.9, Chloride 114 H, Carbon Dioxide 19.0 L, Anion Gap 8, BUN 15, Creatinine 0.89, Est GFR (MDRD) Af Amer 81, Est GFR (MDRD) Non-Af 67, BUN/Creatinine Ratio 16.9, Glucose 115 H, Calcium 8.3 L, Triglycerides 147, Cholesterol 143, LDL Cholesterol 87, VLDL Cholesterol 29, HDL Cholesterol 27 L Rhythm: EKG: ECHO: Stress Test: Cardiac Cath: PCI: CT Surgery: Holter monitor: EPS: PPM: CXR: Chest CT Scan: Radiography Diagnostic Testing: Radiology Impression Abdomen X-Ray 08/02/21 09:45 IMPRESSION: No obstruction. Electronically Signed: Jordi Tirado MD at 12:57 EST Reading Location ID and State: [facility] / [place] , Service support , Chest X-Ray 08/02/21 09:45 IMPRESSION: Degenerative changes, as described above. No demonstrated acute cardiopulmonary process. Electronically Signed: Jordi Tirado MD at 13:02 EST ,
[2021-08-02] MEDS: Furosemide 40 MG Tablet PO (16:38)
[2021-08-02] MEDS: SACUBITRIL/VALSARTAN 24/26 MG TABLET 1 EACH PO (21:50)
[2021-08-02] MEDS: APIXABAN 5 MG TABLET PO (21:51)
[2021-08-02] MEDS: Carvedilol 6.25 MG Tablet PO (21:51)
[2021-08-03 02:59] VITALS: PULSE 96
[2021-08-03 03:45] VITALS: BP 117/77; PULSE 96; RESP 17; TEMP 36.8; O2SAT 96
[2021-08-03 05:00] LABS: Absolute Neutrophil Count 5.8 X10^3/uL (2.0-7.7); Basophil# 0.07 X10^3/uL; Basophil% 0.7 % (0-1); Eosinophil# 0.29 X10^3/uL; Eosinophils% 2.9 % (0-5); Hematocrit 44.2 % (37-47); Hemoglobin 14.6 g/dL (12.0-15.0); Lymphocyte % 31.6 % (19-41); Mean Corpuscular Hgb 29.3 pg (27.0-32.0); Mean Corpuscular Volume 88.6 fL (81-99); Mean Platelet Vol. 9.8 fl (6.2-12.0); Monocyte# 0.76 X10^3/uL; Monocyte% 7.5 % (0-10); NRBC Flagged by Analyzer 0 % (0-5); Neutrophil # 5.78 X10^3/uL (2.7-7.7); Neutrophil % 57.1 % (47-70); Platelet Count 202 K/mm3 (150-450); RBC Distribution Width CV 13.7 % (11.6-14.6); RBC Distribution Width SD 44.2 fl (35.1-43.9); Red Blood Count 4.99 M/mm3 (4.2-5.4); White Blood Count 10.1 K/mm3 (4.4-11.0)
[2021-08-03 05:24] LABS: Anion Gap 5 (5-15); BUN 26 mg/dL (7-18); Calcium,Total 8.5 mg/dL (8.5-10.1); Chloride 110 mmol/L (98-107); Creatinine, Serum 1.04 mg/dL (0.55-1.02); EST Glomerular Filtration Rate 56 mL/min (>60); Est Glom Filt Rate - Afr Amer 68 mL/min (>60); Estimated Creatinine Clearance 51.05 ml/min; Glucose 113 mg/dL (74-106); Sodium Level 141 mmol/L (136-145)
[2021-08-03] MEDS: Acetaminophen 325 MG Tablet 650 MG PO ×2 (06:08→14:25)
[2021-08-03 07:27] VITALS: PULSE 115
[2021-08-03 09:15] VITALS: BP 122/78; PULSE 90; RESP 16; TEMP 36.8; O2SAT 95
[2021-08-03] MEDS: APIXABAN 5 MG TABLET PO (09:19)
[2021-08-03] MEDS: Carvedilol 6.25 MG Tablet PO (09:19)
[2021-08-03] MEDS: SACUBITRIL/VALSARTAN 24/26 MG TABLET 1 EACH PO (09:20)
[2021-08-03] MEDS: Furosemide 40 MG Tablet PO (09:20)
--- NOTE | 2021-08-03 10:16 | PCM.PN.CARD ---
Subjective Subjective Patient seen and evaluated. Appears to be doing much better this morning. Says she was breathing better through the night. Objective Data Vital Signs: Vital Signs Temp Pulse Resp BP Pulse Ox 98.2 F 90 16 122/78 H 95 08/03/21 09:15 08/03/21 09:15 08/03/21 09:15 08/03/21 09:15 08/03/21 09:15 Oxygen Flow Rate (L/min) 3 Oxygen Delivery Method Room Air Weight: 252 lb 6.868 oz Body Mass Index (BMI) 39.5 Intake & Output: Intake and Output for Last 24 Hours 08/01/21 08/02/21 08/03/21 23:59 23:59 23:59 Intake Total 1320.83 / 1325.83 1472.58 / 1472.58 100 / 100 Output Total 1150 / 1150 875 / 875 Balance 1320.83 / 1325.83 322.58 / 322.58 -775 / -775 Lab / Micro Data Result Diagrams: 08/03/21 04:15 08/03/21 04:15 Labs: Laboratory Results - last 24 hr 08/03/21 04:15: WBC 10.1, RBC 4.99, Hgb 14.6, Hct 44.2, MCV 88.6, MCH 29.3, MCHC 33.0, RDW Std Deviation 44.2 H, RDW Coeff of Kurtis 13.7, Plt Count 202, MPV 9.8, Immature Gran % (Auto) 0.200, Neut % (Auto) 57.1, Lymph % (Auto) 31.6, [place] % (Auto) 7.5, Eos % (Auto) 2.9, Baso % (Auto) 0.7, Absolute Neuts (auto) 5.8, Absolute Lymphs (auto) 3.20, Nucleated RBC % 0 08/03/21 04:15: Sodium 141, Potassium 4.0, Chloride 110 H, Carbon Dioxide 26.0, Anion Gap 5, BUN 26 H, Creatinine 1.04 H, Estim Creat Clear Calc 51.05, Est GFR (MDRD) Af Amer 68, Est GFR (MDRD) Non-Af 56 L, BUN/Creatinine Ratio 25.0 H, Glucose 113 H, Calcium 8.5 Cardiology Labs/Tests 08/03/21 04:15: WBC 10.1, RBC 4.99, Hgb 14.6, Hct 44.2, MCV 88.6, MCH 29.3, MCHC 33.0, Plt Count 202, MPV 9.8, Immature Gran % (Auto) 0.200, Neut % (Auto) 57.1, Lymph % (Auto) 31.6, [place] % (Auto) 7.5, Eos % (Auto) 2.9, Baso % (Auto) 0.7, Absolute Neuts (auto) 5.8, Nucleated RBC % 0 08/03/21 04:15: Sodium 141, Potassium 4.0, Chloride 110 H, Carbon Dioxide 26.0, Anion Gap 5, BUN 26 H, Creatinine 1.04 H, Est GFR (MDRD) Af Amer 68, Est GFR (MDRD) Non-Af 56 L, BUN/Creatinine Ratio 25.0 H, Glucose 113 H, Calcium 8.5 Rhythm: EKG: ECHO: Stress Test: Cardiac Cath: PCI: CT Surgery: Holter monitor: EPS: PPM: CXR: Chest CT Scan: Radiography Diagnostic Testing: Radiology Impression Echocardiogram 08/01/21 19:01 Interpretation Summary Normal LV size. The estimated ejection fraction is 25 %. Moderately severe global left ventricular systolic dysfunction. There is moderate to severe global hypokinesis of the left ventricle. Pulmonary artery systolic pressure is 28 mmHg. Contrast injection was performed. Ordering Physician: Doug Barrera Referring Physician: Bean Brower Performed By: Bri Remy, ALIREZA, RVT Abdomen X-Ray 08/02/21 09:45 IMPRESSION: No obstruction. Electronically Signed: Jordi Tirado MD at 12:57 EST Reading Location ID and State: [facility] / [place] , Service support , Chest X-Ray 08/02/21 09:45 IMPRESSION: Degenerative changes, as described above. No demonstrated acute cardiopulmonary process. Electronically Signed: Jordi Tirado MD at 13:02 EST Reading Location ID and State: [facility] / [place] , Service support , Physical Exam Const alert, oriented x3 and no apparent distress General Appearance: cooperative HEENT hearing grossly normal bilaterally Head and Scalp: atraumatic Eyes EOMs intact bilaterally Neck General: normal visual inspection Chest inspection of chest normal and palpation of chest normal Resp normal respiratory effort Auscultation: clear to auscultation bilaterally Cardio regular rate, regular rhythm, S1 normal heart sound and S2 normal heart sound Jugular Venous Distention: JVD GI normal to inspection, nondistended, normoactive bowel sounds Extremity normal capillary refill and no pedal edema Peripheral Pulses: Yes pulses 2+ throughout and femoral pulses present Skin no rashes or lesions noted Neuro oriented x3 and CN's II-XII intact bilaterally Psych Appearance: grossly normal and appropriate Assessment & Plan Assessment/Plan (1) Atrial fibrillation, new onset: PLAN: She appears to present with atrial fibrillation with a rapid ventricular response rate. The duration of the above is unclear. Her preliminary echocardiogram demonstrates severe left ventricular systolic dysfunction I would recommend the following: Carvedilol 6.25 mg twice a day Eliquis 5 mg twice a day Entresto Lasix 40 mg once a day Her blood pressure on admission was elevated and I would not be surprised if she is a hypertensive. Depending on the findings further recommendations will be made. (2) CHF (congestive heart failure): PLAN: She does have heart failure with reduced ejection fraction.-The above appears to be acute The etiology of the above is likely secondary to the atrial fibrillation with a rapid ventricular response rate. Would recommend treating with guideline directed medical therapy as directed above. Oral diuretics Salt restriction Entresto if affordable otherwise losartan Carvedilol and titrate upwards as appropriate My office will coordinate the above. Follow-up in my office in 2 to 4 weeks with Ashkan Remy
[2021-08-03 11:08] VITALS: PULSE 118
--- NOTE | 2021-08-03 12:00 | DCINST_ITS ---
Discharge Instructions Diet Discharge Diet: Low fat / Low cholesterol and 2000 Calorie Control Diet Activity Discharge Activity: Return to Normal Activity Dressing / Incision Call your doctor if you observe: Shortness of breath and Swelling in the ankles Follow Up Care Test Results: Test results from this visit will be discussed in further detail at your follow-up appointment, if applicable. Discharge Plan Admission Admit Date/Time: 08/01/21 18:25 Primary Reason for Your Visit: Afib RVR Attending Provider: Doug Barrera Primary Care Provider: Bean Brower Consulting Providers: Skip Rangel Discharge Orders/Prescriptions Prescriptions: New Eliquis 5 mg Tablet 5 mg PO BID Qty: 60 RF: 0 carvedilol 6.25 mg Tablet 6.25 mg PO BID Qty: 60 RF: 0 furosemide 40 mg Tablet 40 mg PO BIDLX Qty: 60 RF: 0 Entresto 24-26 mg Tablet 1 tab PO BID Qty: 60 RF: 0 potassium chloride 20 mEq tablet,ER particles/crystals 20 meq PO DAILY Qty: 30 RF: 0 Changed acetaminophen 500 mg Tablet 1,000 mg PO TID Qty: 0 RF: 0 Discontinued ibuprofen 200 mg Tablet 800 mg PO TID PRN (Reason: ARTHRITIS) RF: 0 Referrals / Follow Up: Bean Brower DO [Primary Care Provider] - Within 1 Week Ashkan Remy NP, BEHAVIORAL HEALTH TECHNICIAN-C [Nurse Practitioner] - Within 2 Weeks Disposition Disposition (needs filled in before D/C Order can be placed): Home, Self Care
--- NOTE | 2021-08-03 12:13 | PCM.DC.SUM ---
Providers Date of Admission: 08/01/21 Primary Care Physician: Dr. Bean Brower DO Consultations 08/02/21 09:01 Consult: Cardiology Routine Consulting Provider: Skip Rangel Reason for Consult: afib rvr EMERGENT Consult: No MD Notified: Yes Date Notified: 08/01/21 Time Notified: 18:45 Method of Notification: Text Reason For Visit: AFIB RVR Diagnosis Discharge Diagnosis (1) Atrial fibrillation, new onset: Status: Acute Code(s): I48.91 - Unspecified atrial fibrillation (2) CHF (congestive heart failure): Status: Acute Code(s): I50.9 - Heart failure, unspecified Medications at Discharge Home Medications acetaminophen 1,000 mg PO TID #0 tab 08/03/21 apixaban [Eliquis] 5 mg PO BID #60 tab 08/03/21 carvedilol 6.25 mg PO BID #60 tab 08/03/21 furosemide 40 mg PO BIDLX #60 tab 08/03/21 potassium chloride 20 meq PO DAILY #30 tab 08/03/21 sacubitril-valsartan [Entresto] 1 tab PO BID #60 tab 08/03/21 Hospital Course Operations None Procedures 2-D Echocardiogram Summary of Care Provided Minutes Spent on Discharge: 35 Hospital Course: This is a six 5-year-old female presents with shortness of breath. Patient was having palpitations. Patient was noted to be in A. fib with RVR. Patient was started on diltiazem as well as cardiology was consulted. She did have a mild elevated troponins. Patient echocardiogram showed an EF of 25%. Showed severe global LV systolic dysfunction. [place] by cardiology to be due to her A. fib. Cardiology recommended follow-up as outpatient and to continue with carvedilol 6.25 mg twice daily, apixaban 5 mg daily, Entresto, furosemide daily. Physical Exam Const alert HEENT normocephalic, head/scalp atraumatic, hearing grossly normal bilaterally and moist oral mucous membranes Resp normal respiratory effort, no retractions and no use of accessory muscles Cardio regular rate, regular rhythm, S1 normal heart sound and S2 normal heart sound GI normal to inspection, nondistended, normoactive bowel sounds Weight / BMI Weight Weight: 114.5 kg Body Mass Index (BMI) 39.5 ABG / Lab / Microbiology Data Result Diagrams: 08/03/21 04:15 08/03/21 04:15 Laboratory: Laboratory Results - last 24 hr 08/03/21 04:15: WBC 10.1, RBC 4.99, Hgb 14.6, Hct 44.2, MCV 88.6, MCH 29.3, MCHC 33.0, RDW Std Deviation 44.2 H, RDW Coeff of Kurtis 13.7, Plt Count 202, MPV 9.8, Immature Gran % (Auto) 0.200, Neut % (Auto) 57.1, Lymph % (Auto) 31.6, [place] % (Auto) 7.5, Eos % (Auto) 2.9, Baso % (Auto) 0.7, Absolute Neuts (auto) 5.8, Absolute Lymphs (auto) 3.20, Nucleated RBC % 0 08/03/21 04:15: Sodium 141, Potassium 4.0, Chloride 110 H, Carbon Dioxide 26.0, Anion Gap 5, BUN 26 H, Creatinine 1.04 H, Estim Creat Clear Calc 51.05, Est GFR (MDRD) Af Amer 68, Est GFR (MDRD) Non-Af 56 L, BUN/Creatinine Ratio 25.0 H, Glucose 113 H, Calcium 8.5 Radiography Diagnostic Testing: Radiology Impression Echocardiogram 08/01/21 19:01 Interpretation Summary Normal LV size. The estimated ejection fraction is 25 %. Moderately severe global left ventricular systolic dysfunction. There is moderate to severe global hypokinesis of the left ventricle. Pulmonary artery systolic pressure is 28 mmHg. Contrast injection was performed. Ordering Physician: Doug Barrera Referring Physician: Bean Brower Performed By: Bri Remy, ALIREZA, RVT Abdomen X-Ray 08/02/21 09:45 IMPRESSION: No obstruction. Electronically Signed: Jordi Tirado MD at 12:57 EST Reading Location ID and State: [place] , Service support , Chest X-Ray 08/02/21 09:45 IMPRESSION: Degenerative changes, as described above. No demonstrated acute cardiopulmonary process. Electronically Signed: Jordi Tirado MD at 13:02 EST Reading Location ID and State: [place] , Service support , D/C Instructions Discharge Diet: Low fat / Low cholesterol and 2000 Calorie Control Diet Call your doctor if you observe: Shortness of breath and Swelling in the ankles Meaningful Use Info Meaningful Use Diagnoses (Choose all that apply): CHF CHF KELLY/ARB ordered at discharge?: Yes Documented LVEF (%): 25 Discharge Plan Admission Admit Date/Time: 08/01/21 18:25 Primary Reason for Your Visit: Afib RVR Attending Provider: Doug Barrera Primary Care Provider: Bean Brower Consulting Providers: Skip Rangel Discharge Orders/Prescriptions Prescriptions: New Eliquis 5 mg Tablet 5 mg PO BID Qty: 60 RF: 0 carvedilol 6.25 mg Tablet 6.25 mg PO BID Qty: 60 RF: 0 furosemide 40 mg Tablet 40 mg PO BIDLX Qty: 60 RF: 0 Entresto 24-26 mg Tablet 1 tab PO BID Qty: 60 RF: 0 potassium chloride 20 mEq tablet,ER particles/crystals 20 meq PO DAILY Qty: 30 RF: 0 Changed acetaminophen 500 mg Tablet 1,000 mg PO TID Qty: 0 RF: 0 Discontinued ibuprofen 200 mg Tablet 800 mg PO TID PRN (Reason: ARTHRITIS) RF: 0 Referrals / Follow Up: Bean Brower DO [Primary Care Provider] - Within 1 Week Ashkan Remy NP, [employer] [Nurse Practitioner] - Within 2 Weeks Disposition Disposition (needs filled in before D/C Order can be placed): Home, Self Care Charges/Coding Visit Charges Inpatient E&M: 39733 Disch Hosp
[2021-08-03 15:52] VITALS: O2SAT 91
--- NOTE | 2021-08-04 13:15 | CASEMGMT ---
Pt called in requesting BOB GUADARRAMA and praised [facility] for care. Pt states that her PCP was with [facility] but is no longer there and she would now prefer to see a PCP thru [facility]. Pt provided with name/phone number of [place] office PCP's, voices understanding and voices no further questions/concerns/needs. [place] [facility]
== END 2021-08-03 14:28 | disposition home or self-care (01) | DRG 308 ==
LOC: ED 18:38 → PCU 18:48
PROVIDERS: Emergency Provider Emergency Medicine; PCP Student in an Organized Health Care Education/Training Program
DX: I48.91 Unspecified atrial fibrillation (principal); I13.0 Hypertensive heart and chronic kidney disease with heart failure and stage 1 through stage 4 chronic kidney disease, or unspecified chronic kidney disease; I50.21 Acute systolic (congestive) heart failure; N18.31 Chronic kidney disease, stage 3a; E78.00 Pure hypercholesterolemia, unspecified; M19.90 Unspecified osteoarthritis, unspecified site; R77.8 Other specified abnormalities of plasma proteins; Z79.01 Long term (current) use of anticoagulants; Z86.16 Personal history of COVID-19; Z87.891 Personal history of nicotine dependence; D75.1 Secondary polycythemia
CPT/HCPCS: 36415; 71046; 74019; 80048; 80053; 80061; 83735; 83880; 84443; 84484; 85025; 93005; 93306; 99285; J7030; J7040; Q9957; A4216; C8929

== ENCOUNTER 2021-09-01 11:54 | Outpatient (CLI) | payer MEDICARE, OTHER, SELFPAY ==
[2021-09-01 16:03] LABS: Anion Gap 7 (5-15); BUN 26 mg/dL (7-18); Chloride 106 mmol/L (98-107); EST Glomerular Filtration Rate 43 mL/min (>60); Est Glom Filt Rate - Afr Amer 52 mL/min (>60); Glucose 120 mg/dL (74-106); Potassium 4.8 mmol/L (3.5-5.1); Sodium Level 140 mmol/L (136-145)
== END 2021-09-01 23:59 | disposition home or self-care (01) ==
LOC: BIMLAB 11:55
PROVIDERS: PCP Internal Medicine; Referring Provider Internal Medicine; Visit Provider Internal Medicine
DX: I48.91 Unspecified atrial fibrillation (principal)
CPT/HCPCS: 36415; 80048

== ENCOUNTER 2021-11-18 21:03 | Emergency (ER) | payer MEDICARE, OTHER, SELFPAY ==
[2021-11-18 21:04] VITALS: BP 121/92; PULSE 85; RESP 16; TEMP 36.6; O2SAT 98; BMI 35.9
--- NOTE | 2021-11-18 21:23 | EKG12_ITS ---
Test Reason : DYSRHYTHMIA Blood Pressure : / mmHG Vent. Rate : 097 BPM Atrial Rate : 059 BPM P-R Int : 000 ms QRS Dur : 094 ms QT Int : 342 ms P-R-T Axes : 000 032 -05 degrees QTc Int : 434 ms Atrial fibrillation Nonspecific T wave abnormality Abnormal ECG Confirmed by BERNARDO BARRAZA, ANNAMARIE ([id number]), content editor JAILENE KEARNEY ([id number]) on 11/20/2021 10:24:25 AM Referred By: JUNIOR Confirmed By:ANNAMARIE CHANG MD
--- NOTE | 2021-11-18 21:39 | RAD_ITS ---
STUDY: X-RAY CHEST REASON FOR EXAM: Female, 66 years old. chest pain TECHNIQUE: AP portable COMPARISON: 08/02/2021 FINDINGS: The lungs are clear and expanded. There is no demonstrated pleural abnormality. Normal size heart. Normal mediastinum and luis alfredo. Normal visualized pulmonary arteries. Normal visualized aortic arch and descending thoracic aorta. Dorsal spine demonstrates degenerative change. Normal visualized clavicles, and shoulders. Multiple old healed left rib fractures There is no demonstrated abnormality of the visualized soft tissue structures of the upper abdomen. RAD/Chest 1 View (Portable) IMPRESSION: No acute cardiopulmonary pathology. Electronically Signed: Nathen Gore MD at 22:14 EDT ,
[2021-11-18 21:40] LABS: Absolute Lymphocyte Count 3.14 X10^3/uL (0.83-4.51); Absolute Neutrophil Count 4.6 X10^3/uL (2.0-7.7); Basophil# 0.03 X10^3/uL; Basophil% 0.3 % (0-1); Eosinophil# 0.12 X10^3/uL; Eosinophils% 1.4 % (0-5); Hematocrit 47.2 % (37-47); Hemoglobin 15.7 g/dL (12.0-15.0); Lymphocyte # 3.14 X10^3/ul (0.83-4.51); Lymphocyte % 36.6 % (19-41); Mean Corp Hgb Conc 33.3 g/dL (32-36); Mean Corpuscular Hgb 30.7 pg (27.0-32.0); Mean Corpuscular Volume 92.4 fL (81-99); Mean Platelet Vol. 9.4 fl (6.2-12.0); Monocyte# 0.68 X10^3/uL; Monocyte% 7.9 % (0-10); NRBC Flagged by Analyzer 0 % (0-5); Neutrophil % 53.7 % (47-70); Platelet Count 233 K/mm3 (150-450); RBC Distribution Width CV 14.7 % (11.6-14.6); RBC Distribution Width SD 50.4 fl (35.1-43.9); Red Blood Count 5.11 M/mm3 (4.2-5.4); White Blood Count 8.6 K/mm3 (4.4-11.0)
[2021-11-18 21:57] LABS: Anion Gap 7 (5-15); BUN 29 mg/dL (7-18); Calcium,Total 9.5 mg/dL (8.5-10.1); Chloride 107 mmol/L (98-107); Creatinine, Serum 1.26 mg/dL (0.55-1.02); EST Glomerular Filtration Rate 45 mL/min (>60); Est Glom Filt Rate - Afr Amer 54 mL/min (>60); Estimated Creatinine Clearance 43.11 ml/min; Glucose 109 mg/dL (74-106); Potassium 4.3 mmol/L (3.5-5.1); Sodium Level 138 mmol/L (136-145); Troponin-I HS 15 pg/mL (3.0-54.0)
--- NOTE | 2021-11-18 22:12 | EDS_ITS ---
HPI History of Present Illness Chief Complaint: Weakness Informant: patient Narrative Narrative: Patient presents with a feeling of generalized weakness for about 4 days. She states that on Wednesday she bent over to pick something up and when she leaned back up she got dizzy for just a short period of time. It happened a second time that day. However, this happens also not uncommonly. She states her blood pressure has been running low recently. It was down in the 90s. Although her blood pressure is low because of her heart failure and meds, she feels better when her blood pressure is about 120. Also, she feels better when her heart rate is closer to 70 or 60. When her heart rate goes mid 80s or above she does not feel as well. She has noticed her heart rates a little bit on the quicker side but not much. She just states that her energy level was lower than normal. This morning it was feeling better and she took a shower and was more active. But then this evening is back to feeling lower energy. Although the triage note mentions shortness of breath she denies this to me. She states if she exerts herself a lot she is short of breath but that is chronic and unchanged. She is not coughing. She has never had chest pain. She has had some dark malodorous urine but said that that just got better this evening. He has not had black or bloody stools. She is taking all her meds including her Eliquis. [facility] Medical History Arthritis Atrial fibrillation with rapid ventricular response (08/01/21) COVID Former smoker HFrEF (heart failure with reduced ejection fraction) History of kidney stones Hyperlipidemia Kidney stones Lumbar radiculopathy Migraines Osteoarthritis (arthritis due to wear and tear of joints) Home Medications acetaminophen 500 mg tablet 1,000 mg PO TID #0 tabs 08/03/21 [Rx Last Taken 07/31/21] apixaban 5 mg tablet (Eliquis) 5 mg PO BID #60 tabs 08/19/21 [Rx Last Taken Unknown] carvedilol 6.25 mg tablet 6.25 mg PO BID #60 tabs 08/19/21 [Rx Last Taken Unknown] furosemide 40 mg tablet 40 mg PO .PRN PRN edema, weight gain, SOB 08/19/21 [History Last Taken Unknown] potassium chloride 20 mEq tablet,extended release(part/cryst) 20 meq PO .PRN PRN When taking diuretics #30 tabs 08/19/21 [Rx Last Taken Unknown] sacubitril 24 mg-valsartan 26 mg tablet (Entresto) 1 tab PO BID #60 tabs 08/19/21 [Rx Last Taken Unknown] Handicap Placard #1 ea 09/01/21 [Rx Last Taken Unknown] Allergy/AdvReac Type Severity Reaction Status Date / Time piperacillin [From Zosyn] Allergy Rash Verified 11/18/21 21:03 tazobactam [From Zosyn] Allergy Rash Verified 11/18/21 21:03 Family History Father CVA (cerebral vascular accident) Colon cancer Surgical History H/O total hip arthroplasty History of laminectomy (~2015) History of total left knee replacement Social History Smoking Status: Former smoker how long ago did patient quit smokin years ago alcohol intake: never substance use type: does not use caffeine: Yes Type: coffee Number of servings: 1 ROS ROS ED Constitutional Constitutional ED: Reports other Details: Patient has been slowly losing weight since she got ill earlier this year and diagnosed with A. fib. She does not have acute weight gain or water gain though. ; Denies chills or fever(s) Eyes Eyes: Denies blurry vision ENT ENT ED: Denies rhinorrhea Cardiovascular Cardiovascular: Reports other; Denies chest pain Respiratory/Chest Respiratory/Chest: Denies cough or dyspnea Gastrointestinal Gastrointestinal: Denies abdominal pain, diarrhea, melena or nausea Genitourinary Genitourinary ED: Reports other Details: Darker and malodorous but no pain. ; Denies dysuria Musculoskeletal Musculoskeletal: Denies arthralgias Integumentary Denies abscess Neurologic Neurologic: Denies headache(s) Psychiatric Psychiatric: Denies anxiety Endocrine Endocrinology: Denies cold intolerance or heat intolerance Allergic/Immunologic Allergic/Immunologic ED: Denies mouth swelling EXAM Physical Exam Const Vital Signs: 11/18/21 21:04 11/18/21 22:01 11/18/21 22:02 Temperature 97.9 F Temperature Source Temporal Pulse Rate 85 Respiratory Rate 16 Respiratory Effort Normal Non-Labored Respiratory Pattern Normal Blood Pressure 121/92 H Blood Pressure Mean 101 Pulse Ox 98 Oxygen Delivery Method Room Air Room Air 11/18/21 22:55 Temperature Temperature Source Pulse Rate 81 Respiratory Rate 20 H Respiratory Effort Respiratory Pattern Blood Pressure 114/67 Blood Pressure Mean 82 Pulse Ox 97 Oxygen Delivery Method Room Air Positive well nourished and well developed General Appearance ED: well developed; Negative for cyanotic or diaphoretic HEENT Denies moist mucous membranes Negative for trauma Eyes Negative for EOMs intact bilaterally Neck no JVD Chest Wall inspection of chest normal Resp normal respiratory effort Auscultation: Negative for rales, rhonchi or wheezes Cardio regular rate; Negative for regular rhythm Rhythm: abnormal rhythm GI normal to inspection, nondistended, normoactive bowel sounds Back/Spine no CVA tenderness Extremity normal to inspection General Extremety ED: Negative for edema General Extremity: Negative for edema Neuro oriented x3 Sensorium / Orientation: alert and orientation impaired Psych mental status grossly normal Skin no rashes or lesions noted MDM MDM MDM Narrative Medical decision making narrative: Patient's blood work show hemoglobin a little bit up. Both BUN and creatinine are at high level levels for her but not abnormal or out of her range. BNP and troponin are negative despite several days of symptoms. Urine does not show signs infection. It is clear with minimal white cells no nitrites no leukocyte esterase. There are a few bacteria and this will be sent for culture but not treated. Patient now states that she was drinking a little bit less. She was not sure if she was over or under on her fluids. She is comfortable going home. I did encourage her to drink slightly more fluids over the next few days. She has Lasix available if she needs it but does not feel as though she needed. I do not think she needs it now either. She has follow-up with her mattress stuffer already. Lab Data Attestation: I reviewed the patient's lab results. Labs: Laboratory Results - last 24 hr 11/18/21 11/18/21 11/18/21 21:35 21:35 21:35 WBC 8.6 RBC 5.11 Hgb 15.7 H Hct 47.2 H MCV 92.4 MCH 30.7 MCHC 33.3 RDW Std Deviation 50.4 H RDW Coeff of Kurtis 14.7 H Plt Count 233 MPV 9.4 Immature Gran % (Auto) 0.100 Neut % (Auto) 53.7 Lymph % (Auto) 36.6 [place] % (Auto) 7.9 Eos % (Auto) 1.4 Baso % (Auto) 0.3 Absolute Neuts (auto) 4.6 Absolute Lymphs (auto) 3.14 Nucleated RBC % 0 Sodium 138 Potassium 4.3 Chloride 107 Carbon Dioxide 24.0 Anion Gap 7 BUN 29 H Creatinine 1.26 H Estim Creat Clear Calc 43.11 Est GFR (MDRD) Af Amer 54 L Est GFR (MDRD) Non-Af 45 L BUN/Creatinine Ratio 23.0 H Glucose 109 H Calcium 9.5 Troponin I High Sens 15 B-Natriuretic Peptide 174.2 H Urine Color Urine Clarity Urine pH Ur Specific [place] Urine Protein Urine Glucose (UA) Urine Ketones Urine Occult Blood Urine Nitrite Urine Bilirubin Urine Urobilinogen Ur Leukocyte Esterase Urine RBC Urine WBC Ur Squamous Epith Cells Urine Bacteria Urine Mucus 11/18/21 21:50 WBC RBC Hgb Hct MCV MCH MCHC RDW Std Deviation RDW Coeff of Kurtis Plt Count MPV Immature Gran % (Auto) Neut % (Auto) Lymph % (Auto) [place] % (Auto) Eos % (Auto) Baso % (Auto) Absolute Neuts (auto) Absolute Lymphs (auto) Nucleated RBC % Sodium Potassium Chloride Carbon Dioxide Anion Gap BUN Creatinine Estim Creat Clear Calc Est GFR (MDRD) Af Amer Est GFR (MDRD) Non-Af BUN/Creatinine Ratio Glucose Calcium Troponin I High Sens B-Natriuretic Peptide Urine Color Yellow Urine Clarity Clear Urine pH 6.0 Ur Specific [place] 1.010 Urine Protein Negative Urine Glucose (UA) Normal Urine Ketones Negative Urine Occult Blood 10 H Urine Nitrite Negative Urine Bilirubin Negative Urine Urobilinogen Normal Ur Leukocyte Esterase Negative Urine RBC 0 SEEN Urine WBC 0-5 SEEN Ur Squamous Epith Cells 0-5 SEEN Urine Bacteria 3+ Urine Mucus 0 SEEN Radiography Diagnostic Testing: Clinical Impression(s) from Imaging Studies Chest X-Ray 11/18/21 21:39 IMPRESSION: No acute cardiopulmonary pathology. Electronically Signed: Nathen Gore MD at 22:14 EDT , Discharge Plan Triage Chief Complaint: Weakness ED Provider: Kumar Rodriguez Dx/Rx/DC Orders Clinical Impression: Generalized weakness, Mild dehydration Instructions: ED Dehydration (Adult) Prescriptions: No Action furosemide 40 mg tablet 40 mg PO .PRN PRN (Reason: edema, weight gain, SOB) potassium chloride 20 mEq tablet,ER particles/crystals 20 meq PO .PRN PRN (Reason: When taking diuretics) Qty: 30 0RF Eliquis 5 mg tablet 5 mg PO BID Qty: 60 11RF carvedilol 6.25 mg tablet 6.25 mg PO BID Qty: 60 11RF Entresto 24-26 mg tablet 1 tab PO BID Qty: 60 11RF (DME) Handicap Placard See Rx Instructions .ROUTE .MEDSUPPLY Qty: 1 0RF Rx Instructions: As directed, length of time 3 years acetaminophen 500 mg Tablet 1,000 mg PO TID Qty: 0 0RF Primary Care Provider: Yesi Clinton Referrals: Skip Rangel MD [STAFF PHYSICIAN] - Keep [place] appointment Yesi Clinton MD [Primary Care Provider] - Disposition Disposition: Home, Self Care
[2021-11-18 22:28] LABS: Mucous, Urine 0 SEEN /hpf (<or=2+); Red Blood Cells-Urine 0 SEEN /hpf (0-5)
[2021-11-18 22:37] LABS: Color, Urine Yellow (Yellow); Glucose, Dipstick Normal (Normal); Ketone-Dipstick Negative (Negative); Leukocyte Esterase-Dipstick Negative /ul (Negative); Nitrite-Dipstick Negative (Negative); Occult Blood-Urine 10 /ul (Negative); Protein-Dipstick Negative (Negative); Urine Bilirubin Dipstick Negative (Negative); Urine Clarity Clear (Clear); Urine Urobilinogen Normal (Normal)
[2021-11-18 22:51] LABS: BNP,B-Type NATRIURETIC PEPTIDE 174.2 pg/mL (0-100)
[2021-11-18 22:54] LABS: Bacteria 3+ /hpf (None Seen); Squamous Epithelial Cells - UA 0-5 SEEN /hpf (5-10); White Blood Cells 0-5 SEEN /hpf (0-5)
[2021-11-18 22:55] VITALS: BP 114/67; PULSE 81; RESP 20; O2SAT 97
[2021-11-19 00:12] VITALS: BP 111/70; PULSE 81; RESP 16
== END 2021-11-19 00:13 | disposition home or self-care (01) ==
PROVIDERS: Emergency Provider Emergency Medicine; PCP Internal Medicine; Visit Provider Emergency Medicine
DX: E86.0 Dehydration (principal); I50.22 Chronic systolic (congestive) heart failure; I48.91 Unspecified atrial fibrillation; E78.5 Hyperlipidemia, unspecified; Z79.01 Long term (current) use of anticoagulants; Z79.899 Other long term (current) drug therapy; Z87.891 Personal history of nicotine dependence
CPT/HCPCS: 71045; 80048; 81001; 83880; 84484; 85025; 87077; 87086; 87088; 87186; 93005; 99285; A4216

== ENCOUNTER → 2021-11-20 | Outpatient (CLI) | payer MEDICARE, OTHER, SELFPAY ==
[2021-11-20 11:28] LABS: Mucous, Urine 0 SEEN /hpf (<or=2+); Red Blood Cells-Urine 0 SEEN /hpf (0-5)
[2021-11-20 12:10] LABS: Color, Urine Yellow (Yellow); Glucose, Dipstick Normal (Normal); Ketone-Dipstick 5 mg/dl (Negative); Leukocyte Esterase-Dipstick 500 /ul (Negative); Nitrite-Dipstick Positive (Negative); Occult Blood-Urine 10 /ul (Negative); Protein-Dipstick 30 mg/dl (Negative); Specific Gravity, Urine 1.015 (1.002-1.030); Urine Bilirubin Dipstick Negative (Negative); Urine Clarity Sl. Cloudy (Clear); Urine Urobilinogen 1 mg/dl (Normal)
[2021-11-20 12:17] LABS: Bacteria 2+ /hpf (None Seen); Squamous Epithelial Cells - UA 0-5 SEEN /hpf (5-10); White Blood Cells 25-50 SEEN /hpf (0-5)
[2021-11-20 12:43] LABS: Absolute Lymphocyte Count 2.66 X10^3/uL (0.83-4.51); Absolute Neutrophil Count 5.5 X10^3/uL (2.0-7.7); Basophil# 0.05 X10^3/uL; Basophil% 0.6 % (0-1); Eosinophil# 0.12 X10^3/uL; Eosinophils% 1.3 % (0-5); Hematocrit 49.7 % (37-47); Hemoglobin 15.9 g/dL (12.0-15.0); Lymphocyte # 2.66 X10^3/ul (0.83-4.51); Lymphocyte % 29.4 % (19-41); Mean Corpuscular Hgb 30.1 pg (27.0-32.0); Mean Corpuscular Volume 94.1 fL (81-99); Mean Platelet Vol. 9.9 fl (6.2-12.0); Monocyte# 0.71 X10^3/uL; Monocyte% 7.8 % (0-10); NRBC Flagged by Analyzer 0 % (0-5); Neutrophil # 5.49 X10^3/uL (2.7-7.7); Neutrophil % 60.6 % (47-70); Platelet Count 270 K/mm3 (150-450); RBC Distribution Width CV 14.8 % (11.6-14.6); RBC Distribution Width SD 51.7 fl (35.1-43.9); Red Blood Count 5.28 M/mm3 (4.2-5.4); White Blood Count 9.1 K/mm3 (4.4-11.0)
[2021-11-20 13:12] LABS: BNP,B-Type NATRIURETIC PEPTIDE 182.8 pg/mL (0-100)
[2021-11-20 13:23] LABS: AST(SGOT) 12 U/L (15-37); Alanine Aminotransfer ALT/SGPT 25 U/L (13-56); Albumin, Serum 3.8 g/dL (3.2-5.0); Alkaline Phosphatase 56 U/L (45-117); Anion Gap 5 (5-15); BUN 22 mg/dL (7-18); BUN/Creat Ratio 17.9 RATIO (10-20); Calcium,Total 9.4 mg/dL (8.5-10.1); Chloride 109 mmol/L (98-107); Creatinine, Serum 1.23 mg/dL (0.55-1.02); EST Glomerular Filtration Rate 46 mL/min (>60); Est Glom Filt Rate - Afr Amer 56 mL/min (>60); Globulin 3.8 g/dL (2.2-4.2); Glucose 103 mg/dL (74-106); Potassium 4.6 mmol/L (3.5-5.1); Protein, Total 7.6 g/dL (6.4-8.2); Sodium Level 140 mmol/L (136-145)
[2021-11-20 15:43] LABS: Vitamin D,25 Hydroxy 15.9 ng/mL
== END | disposition home or self-care (01) ==
LOC: LABSPEC 11:29 → BIMLAB 11:42
PROVIDERS: PCP Internal Medicine; Referring Provider Physician Assistant; Visit Provider Physician Assistant
DX: R06.02 Shortness of breath (principal); I50.20 Unspecified systolic (congestive) heart failure; I48.91 Unspecified atrial fibrillation; R53.1 Weakness; E86.0 Dehydration; E55.9 Vitamin D deficiency, unspecified; Z20.822 Contact with and (suspected) exposure to COVID-19
CPT/HCPCS: 36415; 80053; 81001; 82306; 83880; 84443; 85025; 87077; 87086; 87088; 87186; 87635; U0003; U0005

== ENCOUNTER → 2021-12-10 | Outpatient (CLI) | payer MEDICARE, OTHER, SELFPAY ==
--- NOTE | 2021-12-10 08:04 | ECHOL_ITS ---
Reason For Study: CHF Procedure This was a limited 2D transthoracic echocardiogram. The study was technically difficult. Contrast injection was performed. Exam performed in department. Left Ventricle Normal LV size. The estimated ejection fraction is 30 %. There is moderate to severe global hypokinesis of the left ventricle. Right Ventricle Normal RV size. Normal systolic function. Atria The left atrium is moderately enlarged. Normal right atrium. Mitral Valve There is mild to moderate mitral annular calcification. Pericardium/Pleural No pericardial effusion. Medication 22 gauge I.V. with prn adaptor inserted into left arm. Diluted definity 3ml given slow IV push to enhance endocardial definition. MMode/2D Measurements & Calculations LAV(MOD-bp): 107.2 ml SV(MOD-sp4): 25.5 ml LVAd ap4: 29.7 cm2 LAV(MOD-bp) Indexed: 49.7 ml/m2 LVLd ap4: 7.5 cm LAV(MOD-sp2): 93.3 ml EDV(MOD-sp4): 99.6 ml LAV(MOD-sp4): 101.6 ml EDV(sp4-el): 100.3 ml LVAs ap4: 24.7 cm2 LVLs ap4: 7.1 cm ESV(MOD-sp4): 74.1 ml ESV(sp4-el): 73.3 ml EF(MOD-sp4): 25.6 % EF(sp4-el): 27.0 % SV(sp4-el): 27.0 ml LA A4 area: 29.9 cm2 ECHO/Echo Limited w/Contrast Interpretation Summary Normal LV size. The estimated ejection fraction is 30 %. There is moderate to severe global hypokinesis of the left ventricle. The left atrium is moderately enlarged. Contrast injection was performed. Compared to previous study, the left ventricu lar systolic function is the same.. Ordering Physician: Ashkan Remy Referring Physician: Ashkan Remy Performed By: Holly Motley RCS
== END | disposition home or self-care (01) ==
LOC: CVS 08:03
PROVIDERS: PCP Internal Medicine; Referring Provider Nurse Practitioner Family; Visit Provider Nurse Practitioner Family
DX: I50.20 Unspecified systolic (congestive) heart failure (principal); I48.91 Unspecified atrial fibrillation; R06.09 Other forms of dyspnea; E78.5 Hyperlipidemia, unspecified
CPT/HCPCS: 93308; Q9957; A4216; C8924

== ENCOUNTER → 2021-12-12 | Outpatient (CLI) | payer MEDICARE, OTHER, SELFPAY ==
--- NOTE | 2021-12-12 17:33 | STRESSREP ---
Stress Test Report Pharmacologic myocardial perfusion stress test. Resting EKG demonstrates normal sinus rhythm with a rate of 97 bpm normal intervals are noted resting blood pressure is 132/90 mmHg. 0.4 mg of regadenoson was infused per usual protocol followed by Intravenous saline flush injection continuous EKG monitoring was performed. The maximum heart rate attained was 123 bpm which was 80% of max impacted heart rate the maximum workload was 1 metabolic equivalent. At rest there were no ST or T wave changes noted to suggest abnormal flow reserve and at peak infusion nonspecific ST changes were noted with did not meet the criteria for ischemia. No clinical angina was noted. The peak blood pressure was 144/98 mmHg. Myocardial perfusion protocol. 14.7 mCi of technetium 99m sestamibi was injected at rest. 0.4 mg of regadenoson was infused per usual protocol. At peak infusion 44.9 mCi of technetium 99m sestamibi was injected stress images were obtained stress and rest images were reconstructed and compared in the short axis vertical long and horizontal long axis. Gated images were also obtained to Perfusion SPECT analysis: Review of the stress images demonstrate normal uptake of tracer noted in all areas of the myocardium. The resting images similar demonstrate normal uptake of tracer noted in all areas of the myocardium. No areas of reversibility are noted to suggest ischemia no previous infarct is noted. Gated SPECT analysis: The gated ejection fraction is 50%. Conclusion: Normal pharmacologic myocardial perfusion stress test. Preserved ejection fraction.
== END | disposition home or self-care (01) ==
LOC: CVS 07:22
PROVIDERS: PCP Internal Medicine; Referring Provider Nurse Practitioner Family; Visit Provider Nurse Practitioner Family
DX: I50.20 Unspecified systolic (congestive) heart failure (principal); I48.91 Unspecified atrial fibrillation; E78.5 Hyperlipidemia, unspecified; R94.31 Abnormal electrocardiogram [ECG] [EKG]
CPT/HCPCS: 78452; 93017; A9500; A4216; J2785

== ENCOUNTER 2021-12-20 10:23 | Emergency (ER) | payer MEDICARE, OTHER, SELFPAY ==
[2021-12-20 10:23] VITALS: BP 106/70; PULSE 116; RESP 14; TEMP 36.5; O2SAT 97; BMI 36.3
--- NOTE | 2021-12-20 10:35 | CT_ITS ---
STUDY: CT ABDOMEN AND PELVIS WITHOUT CONTRAST REASON FOR EXAM: Female, 66 years old. Kidney Stone; R flank pain RADIATION DOSAGE (If Supplied By Facility): CTDIvol = ( 31.81 ) mGy, DLP = ( 1438.30 ) mGycm TECHNIQUE: Transaxial images were obtained from the dome of the diaphragm to the symphysis pubis without oral contrast, and without intravenous contrast. Sagittal and coronal images were reconstructed. Individualized dose optimization techniques were used for this CT. COMPARISON: None. FINDINGS: The visualized lung bases are unremarkable. The visualized portions of the heart are within normal limits. Mild hepatomegaly. No focal lesion is definitely identified on this noncontrast examination. Gallstone in the gallbladder neck. Normal spleen. Normal pancreas. Normal bilateral adrenal glands. Atrophic right kidney with deformity of the lower pole likely due to scarring. Small calcifications unchanged probably parenchymal. Low-density lesion/cyst in the lateral aspect of the left kidney difficult to characterize without contrast probably unchanged. No evidence of hydronephrosis or ureteral stones. Normal visualized stomach. Normal caliber small bowel loops. : Diverticulosis without evidence of acute diverticulitis. The appendix is visualized and appears normal. There is diffuse atherosclerotic calcification of the abdominal aorta with elongation and tortuosity, but without a demonstrated aneurysm. Normal inferior vena cava. Normal retroperitoneum. Normal urinary bladder. Normal abdominal wall. Degenerative changes in the spine. Bilateral hip arthroplasty. CT/Abdomen/Pelvis without Cont IMPRESSION: 1. Gallstone in the gallbladder neck. 2. Atrophic right kidney with calcifications unchanged. No evidence of hydronephrosis or ureteral stones. 3. Diverticulosis without evidence of acute diverticulitis. Electronically Signed: Kilo Gauthier MD at 11:31 EDT ,
--- NOTE | 2021-12-20 10:38 | ED.VIS.GI ---
HPI HPI - GI History of Present Illness Chief Complaint: Flank Pain Informant: patient Abdominal Pain/Flank Pain Onset: Yesterday Context: Gradual Onset Timing: Continuous Quality: Aching Location: Right Flank (And a little in the lower abdomen) Current Severity: Mild Maximum Severity: Mild Worsened by: Nothing Relieved by: Nothing Nausea/Vomiting/Emesis GI Symptom: Negative for Nausea or Vomiting Diarrhea/Melena/Hematochezia GI Symptom: Negative for Diarrhea, Melena or Hematochezia Associated Symptoms Associated Symptoms: Positive for Frequency and Urgency; Negative for Dysuria or Hematuria Narrative Narrative: Since yesterday, patient has had some fevers, chills, she was incontinent of urine overnight accidentally when she got up to use the bathroom, urinary frequency and some urgency, some pressure sensation in her lower abdomen, and some mild discomfort in her right low back and flank. She has had some of the symptoms with a urinary infection in the past, she was much worse than this when she had a stone that she suggest may have been infected she required admission for. She denies any hematuria, she is on apixaban for history of atrial fibrillation. She denies any dysuria or urinary retention symptoms. No nausea or vomiting or confusion. She is not feeling weak now. He had a urinary infection relatively recently, she was put on Macrobid initially and then it recurred so she was on Cipro, she finished that about 8 days ago. She had similar urinary symptoms then that she does now, no dysuria. [facility] Medical History Arthritis Atrial fibrillation with rapid ventricular response (08/01/21) COVID Former smoker Health care maintenance HFrEF (heart failure with reduced ejection fraction) History of kidney stones Hyperlipidemia Kidney stones Lumbar radiculopathy Migraines Osteoarthritis (arthritis due to wear and tear of joints) Home Medications acetaminophen 500 mg tablet 1,000 mg PO TID #0 tabs 08/03/21 [Rx Last Taken 07/31/21] apixaban 5 mg tablet (Eliquis) 5 mg PO BID #60 tabs 08/19/21 [Rx Last Taken Unknown] carvedilol 6.25 mg tablet 6.25 mg PO BID #60 tabs 08/19/21 [Rx Last Taken Unknown] furosemide 40 mg tablet 40 mg PO .PRN PRN edema, weight gain, SOB 08/19/21 [History Last Taken Unknown] potassium chloride 20 mEq tablet,extended release(part/cryst) 20 meq PO .PRN PRN When taking diuretics #30 tabs 08/19/21 [Rx Last Taken Unknown] sacubitril 24 mg-valsartan 26 mg tablet (Entresto) 1 tab PO BID #60 tabs 08/19/21 [Rx Last Taken Unknown] Handicap Placard #1 ea 09/01/21 [Rx Last Taken Unknown] miconazole nitrate 2 % topical powder 1 applic topical BID #85 grams 11/20/21 [Rx Last Taken Unknown] fosfomycin tromethamine 3 gram oral packet 3 g PO ONCE #1 ea 12/02/21 [Rx Last Taken Unknown] cephalexin 500 mg capsule 500 mg PO BID #14 caps 12/03/21 [Rx Last Taken Unknown] molnupiravir 200 mg capsule (EUA) 800 mg PO Q12H 5 days #40 caps 12/20/21 [Rx Last Taken Unknown] Allergy/AdvReac Type Severity Reaction Status Date / Time piperacillin [From Zosyn] Allergy Rash Verified 12/20/21 10:25 tazobactam [From Zosyn] Allergy Rash Verified 12/20/21 10:25 Family History Father CVA (cerebral vascular accident) Colon cancer Surgical History H/O total hip arthroplasty History of laminectomy (~2015) History of total left knee replacement Social History Smoking Status: Former smoker how long ago did patient quit smokin years ago alcohol intake: never substance use type: does not use caffeine: Yes Type: coffee Number of servings: 1 ROS ROS ED Constitutional Constitutional ED: Reports chills and fever(s) Eyes Eyes: Denies change in vision or diplopia ENT ENT ED: Denies rhinorrhea or sore throat Cardiovascular Cardiovascular: Denies chest pain or palpitations Respiratory/Chest Respiratory/Chest: Denies cough or dyspnea Gastrointestinal Gastrointestinal: Reports abdominal pain; Denies diarrhea, nausea or vomiting Genitourinary Genitourinary ED: Reports as per HPI, flank pain, low back pain, urinary frequency and urinary urgency; Denies dysuria or hematuria Musculoskeletal Musculoskeletal: Reports back pain; Denies neck pain Integumentary Denies abscess or rash Neurologic Neurologic: Denies headache(s), paresthesias or weakness Psychiatric Psychiatric: Denies anxiety or suicidal thoughts EXAM Physical Exam Const Vital Signs: 12/20/21 10:23 12/20/21 12:23 12/20/21 14:00 Temperature 97.7 F L Temperature Source Temporal Pulse Rate 116 H 100 73 Respiratory Rate 14 20 H Blood Pressure 106/70 110/74 Blood Pressure Mean 82 86 Pulse Ox 97 Oxygen Delivery Method Room Air Positive well nourished, well developed and obese General Appearance ED: well developed and NAD Nutritional Appearance: obese HEENT Reports moist mucous membranes normocephalic and atraumatic Eyes PERRL and EOMs intact bilaterally Neck full ROM and supple Resp normal respiratory effort and clear to auscultation bilaterally Cardio regular rate, regular rhythm and no murmurs GI non-tender and non-distended Auscultation: normoactive bowel sounds Palpation: soft Back/Spine Back/Spine Narrative: Mild right CVA tenderness. Normal inspection no rash. 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 I reexamined her. She states her back still hurts but it is mild she does not want pain medications, she does not have right upper quadrant tenderness or guarding. She does not have pain going up into her shoulder. She has not been having pain after meals or nausea/vomiting. However she does state that she has had a tickle in her throat and a cough that is developed since yesterday as well as headaches in addition to these fevers and now the back pain but she has chronic back issues, maybe this is simply worsening musculoskeletal pain due to a different infection such as COVID. She is not vaccinated, she did have COVID in 2019, so we ran a rapid COVID test in addition to obtaining an ultrasound of her gallbladder to rule out acute cholecystitis as etiology of her low back pain, and ran her liver enzymes. Other than the presence of the stone and adenomyomatosis, the ultrasound was unremarkable, the liver enzymes are normal, and her COVID test is positive. I suspect all of these symptoms are related to her having COVID. I think the gallstone and adenomyomatosis are incidental findings. The urinary incontinence is of unknown significance/etiology but she does not have evidence of a urine infection at this time. Patient does have risk for worsening so she has a history of heart failure with reduced ejection fraction and she is very obese. She meets indications for the EUA for the oral antiviral therapy is available now, however since she is on Entresto, there is a relative contraindication to placing her on Paxlovid due to the medications in that drug not being well studied in combination with this. The patient prefers not to try this, so I will place her on molnupiravir. Lab Data Attestation: I reviewed the patient's lab results. Labs: Laboratory Results - last 24 hr 12/20/21 12/20/21 12/20/21 10:40 10:40 10:40 WBC 4.4 RBC 4.86 Hgb 15.5 H Hct 45.9 MCV 94.4 MCH 31.9 MCHC 33.8 RDW Std Deviation 47.9 H RDW Coeff of Kurtis 13.6 Plt Count 161 MPV 9.4 Immature Gran % (Auto) 0.500 Neut % (Auto) 54.8 Lymph % (Auto) 21.9 Thayer % (Auto) 22.1 H Eos % (Auto) 0.2 Baso % (Auto) 0.5 Absolute Neuts (auto) 2.4 Absolute Lymphs (auto) 0.97 Nucleated RBC % 0 Sodium 138 Potassium 4.3 Chloride 110 H Carbon Dioxide 25.0 Anion Gap 3 L BUN 14 Creatinine 1.19 H Estim Creat Clear Calc 44.00 Est GFR (MDRD) Af Amer 58 L Est GFR (MDRD) Non-Af 48 L BUN/Creatinine Ratio 11.8 Glucose 109 H Calcium 8.9 Total Bilirubin 0.40 Direct Bilirubin 0.13 AST 18 ALT 24 Alkaline Phosphatase 55 Total Protein 7.2 Albumin 3.5 Globulin 3.7 Urine Color Urine Clarity Urine pH Ur Specific [place] Urine Protein Urine Glucose (UA) Urine Ketones Urine Occult Blood Urine Nitrite Urine Bilirubin Urine Urobilinogen Ur Leukocyte Esterase Urine RBC Urine WBC Ur Squamous Epith Cells Urine Bacteria Urine Mucus 12/20/21 11:12 WBC RBC Hgb Hct MCV MCH MCHC RDW Std Deviation RDW Coeff of Kurtis Plt Count MPV Immature Gran % (Auto) Neut % (Auto) Lymph % (Auto) Thayer % (Auto) Eos % (Auto) Baso % (Auto) Absolute Neuts (auto) Absolute Lymphs (auto) Nucleated RBC % Sodium Potassium Chloride Carbon Dioxide Anion Gap BUN Creatinine Estim Creat Clear Calc Est GFR (MDRD) Af Amer Est GFR (MDRD) Non-Af BUN/Creatinine Ratio Glucose Calcium Total Bilirubin Direct Bilirubin AST ALT Alkaline Phosphatase Total Protein Albumin Globulin Urine Color Yellow Urine Clarity Clear Urine pH 6.5 Ur Specific [place] 1.005 Urine Protein Negative Urine Glucose (UA) Normal Urine Ketones Negative Urine Occult Blood 10 H Urine Nitrite Negative Urine Bilirubin Negative Urine Urobilinogen Normal Ur Leukocyte Esterase Negative Urine RBC 0 SEEN Urine WBC 0 SEEN Ur Squamous Epith Cells 0 SEEN Urine Bacteria RARE Urine Mucus 0 SEEN Radiography Diagnostic Testing: Clinical Impression(s) from Imaging Studies Abdomen/Pelvis CT 12/20/21 10:35 IMPRESSION: 1. Gallstone in the gallbladder neck. 2. Atrophic right kidney with calcifications unchanged. No evidence of hydronephrosis or ureteral stones. 3. Diverticulosis without evidence of acute diverticulitis. Electronically Signed: Kilo Gauthier MD at 11:31 EDT , Gallbladder Ultrasound 12/20/21 12:08 IMPRESSION: 1. Cholelithiasis. 2. Gallbladder adenomyomatosis. 3. Right renal cortical scarring. Electronically Signed: Paul Bravo MD at 14:28 EDT , Discharge Plan Triage Chief Complaint: Flank Pain ED Provider: Mi,Jordi Dx/Rx/DC Orders Clinical Impression: COVID-19, Acute right flank pain, Fever, Urinary incontinence, Abdominal pain, lower, Adenomyomatosis of gallbladder, Cholelithiasis Instructions: Coronavirus Disease 2019 (COVID-19): Caring for Yourself or Others Prescriptions: New molnupiravir 200 mg capsule 800 mg PO Q12H 5 Days Qty: 40 0RF No Action furosemide 40 mg tablet 40 mg PO .PRN PRN (Reason: edema, weight gain, SOB) potassium chloride 20 mEq tablet,ER particles/crystals 20 meq PO .PRN PRN (Reason: When taking diuretics) Qty: 30 0RF Eliquis 5 mg tablet 5 mg PO BID Qty: 60 11RF carvedilol 6.25 mg tablet 6.25 mg PO BID Qty: 60 11RF Entresto 24-26 mg tablet 1 tab PO BID Qty: 60 11RF (DME) Handicap Placard See Rx Instructions .ROUTE .MEDSUPPLY Qty: 1 0RF Rx Instructions: As directed, length of time 3 years miconazole nitrate 2 % powder 1 applic topical BID Qty: 85 0RF acetaminophen 500 mg Tablet 1,000 mg PO TID Qty: 0 0RF fosfomycin tromethamine 3 gram packet 3 g PO ONCE Qty: 1 0RF cephalexin 500 mg capsule 500 mg PO BID Qty: 14 0RF Primary Care Provider: Yesi Clinton Referrals: Yesi Clinton MD [Primary Care Provider] - 1 Week if not improving Activity Restrictions/Additional Instructions: Try to get a home portable pulse oximeter and closely watch your oxygen levels periodically. If you stay below 90% for more than a minute or so, and/or you are feeling like your breathing is getting worse, return to the emergency department for further evaluation. Disposition Disposition: Home, Self Care
[2021-12-20 10:50] LABS: Absolute Lymphocyte Count 0.97 X10^3/uL (0.83-4.51); Absolute Neutrophil Count 2.4 X10^3/uL (2.0-7.7); Basophil# 0.02 X10^3/uL; Basophil% 0.5 % (0-1); Eosinophil# 0.01 X10^3/uL; Eosinophils% 0.2 % (0-5); Hematocrit 45.9 % (37-47); Hemoglobin 15.5 g/dL (12.0-15.0); Lymphocyte # 0.97 X10^3/ul (0.83-4.51); Lymphocyte % 21.9 % (19-41); Mean Corp Hgb Conc 33.8 g/dL (32-36); Mean Corpuscular Hgb 31.9 pg (27.0-32.0); Mean Corpuscular Volume 94.4 fL (81-99); Mean Platelet Vol. 9.4 fl (6.2-12.0); Monocyte# 0.98 X10^3/uL; Monocyte% 22.1 % (0-10); NRBC Flagged by Analyzer 0 % (0-5); Neutrophil # 2.43 X10^3/uL (2.7-7.7); Neutrophil % 54.8 % (47-70); Platelet Count 161 K/mm3 (150-450); RBC Distribution Width CV 13.6 % (11.6-14.6); RBC Distribution Width SD 47.9 fl (35.1-43.9); Red Blood Count 4.86 M/mm3 (4.2-5.4); White Blood Count 4.4 K/mm3 (4.4-11.0)
[2021-12-20 11:02] LABS: Anion Gap 3 (5-15); BUN 14 mg/dL (7-18); BUN/Creat Ratio 11.8 RATIO (10-20); Calcium,Total 8.9 mg/dL (8.5-10.1); Chloride 110 mmol/L (98-107); Creatinine, Serum 1.19 mg/dL (0.55-1.02); EST Glomerular Filtration Rate 48 mL/min (>60); Est Glom Filt Rate - Afr Amer 58 mL/min (>60); Glucose 109 mg/dL (74-106); Potassium 4.3 mmol/L (3.5-5.1); Sodium Level 138 mmol/L (136-145)
[2021-12-20 11:20] LABS: Mucous, Urine 0 SEEN /hpf (<or=2+); Red Blood Cells-Urine 0 SEEN /hpf (0-5); Squamous Epithelial Cells - UA 0 SEEN /hpf (5-10); White Blood Cells 0 SEEN /hpf (0-5)
[2021-12-20 11:30] LABS: Color, Urine Yellow (Yellow); Glucose, Dipstick Normal (Normal); Ketone-Dipstick Negative (Negative); Leukocyte Esterase-Dipstick Negative /ul (Negative); Nitrite-Dipstick Negative (Negative); Occult Blood-Urine 10 /ul (Negative); Protein-Dipstick Negative (Negative); Specific Gravity, Urine 1.005 (1.002-1.030); Urine Bilirubin Dipstick Negative (Negative); Urine Clarity Clear (Clear); Urine Urobilinogen Normal (Normal); Urine pH 6.5 (5.0 - 8.0)
[2021-12-20 11:36] LABS: Bacteria RARE /hpf (None Seen)
--- NOTE | 2021-12-20 12:08 | US_ITS ---
EXAM: US ABDOMEN LIMITED, RIGHT UPPER QUADRANT CLINICAL INDICATION: pain, fever, stones TECHNIQUE: Real-time ultrasound of the right upper quadrant with image documentation. This report was created using [employer] report generation technology. COMPARISON: CT abdomen and pelvis 12/20/2021 FINDINGS: LIVER: Normal. There is normal echotexture. No focal hepatic lesion. No intrahepatic biliary ductal dilation. GALLBLADDER: Stone within the neck of the gallbladder. Ringdown artifacts from the gallbladder wall consistent with adenomyosis. No pericholecystic fluid. Negative sonographic Forrest''s sign. COMMON BILE DUCT: Unremarkable as visualized. The proximal common bile duct is within normal limits for the patient''s age. PANCREAS: Unremarkable as visualized. No focal abnormality is demonstrated in the pancreas. No pancreatic ductal dilatation. RIGHT KIDNEY: Right kidney measures 8.6 cm in length with focal cortical scarring within the upper pole. No hydronephrosis. No shadowing calculus. No focal lesion or perinephric collection is demonstrated. US/Gallbladder IMPRESSION: 1. Cholelithiasis. 2. Gallbladder adenomyomatosis. 3. Right renal cortical scarring. Electronically Signed: Paul Bravo MD at 14:28 EDT ,
[2021-12-20 12:23] VITALS: PULSE 100; RESP 20
[2021-12-20 12:30] LABS: AST(SGOT) 18 U/L (15-37); Alanine Aminotransfer ALT/SGPT 24 U/L (13-56); Albumin, Serum 3.5 g/dL (3.2-5.0); Alkaline Phosphatase 55 U/L (45-117); Bilirubin, Direct 0.13 mg/dL (0.00-0.30); Globulin 3.7 g/dL (2.2-4.2); Protein, Total 7.2 g/dL (6.4-8.2)
[2021-12-20 14:00] VITALS: BP 110/74; PULSE 73
== END 2021-12-20 14:54 | disposition home or self-care (01) ==
PROVIDERS: Emergency Provider Emergency Medicine; PCP Internal Medicine; Visit Provider Emergency Medicine
DX: U07.1 COVID-19 (principal); I50.22 Chronic systolic (congestive) heart failure; I48.91 Unspecified atrial fibrillation; K80.20 Calculus of gallbladder without cholecystitis without obstruction; K82.8 Other specified diseases of gallbladder; R32 Unspecified urinary incontinence; R39.15 Urgency of urination; R35.0 Frequency of micturition; R51.9 Headache, unspecified; E78.5 Hyperlipidemia, unspecified; M19.90 Unspecified osteoarthritis, unspecified site; E66.9 Obesity, unspecified; Z79.01 Long term (current) use of anticoagulants; Z79.899 Other long term (current) drug therapy; Z87.891 Personal history of nicotine dependence; Z96.652 Presence of left artificial knee joint
CPT/HCPCS: 74176; 76705; 80048; 80076; 81001; 85025; 87811; 99282; A4216

== ENCOUNTER 2022-01-08 10:02 | Day surgery (SDC) | payer MEDICARE, OTHER, SELFPAY ==
[2022-01-07 09:43] VITALS: BMI 36.3
--- NOTE | 2022-01-08 12:55 | PCM.OP.BLANK ---
Problems Associated Problem List Diagnoses (1) Atrial fibrillation: Operative Report Date of Procedure: 01/08/22 DC cardioversion Indication persistent atrial fibrillation with reduced ejection fraction. The patient was brought to the cardiac catheterization lab in the postabsorptive nonsedated state. Patient was seen by Dr. Donovan of the critical care division. Informed consent was obtained. Anterior-posterior pads were applied. The patient was then administered 6 mg of intravenous etomidate. 200 J of synchronized DC cardioversion energy were applied with prompt reversal to sinus rhythm. Patient tolerated the procedure well. Postoperative EKG confirmed sinus rhythm. Conclusion: Successful DC cardioversion to sinus rhythm from atrial fibrillation. Follow-up as per office protocol. Recommend sleep study..
--- NOTE | 2022-01-08 12:58 | PRO.PCM_ITS ---
Procedure Report Date of Procedure: 01/08/22 CONSCIOUS SEDATION REPORT DATE OF SERVICE: January 08, 2022 BRIEF HISTORY OF PRESENT ILLNESS: The patient is a 66-year-old female who presented to [facility] for an elective outpatient cardioversion due to underlying atrial fibrillation. The patient denied any prior anesthetic complications. Her last surface echocardiogram demonstrated an ejection fraction of approximately 30%. She is systemically anticoagulated on Eliquis. She does have a past tobacco abuse history, but denies ever having been diagnosed with COPD or asthma. She denies a history of obstructive sleep apnea. PHYSICAL EXAMINATION: VITAL SIGNS: Reviewed and were acceptable. GENERAL: The patient is a female, in no apparent distress, speaking in full sentences. HEENT: Normocephalic, atraumatic. Mucous membranes are moist and pink. Good mouth opening noted. Trachea is midline. CHEST: S1, S2 irregularly irregular. No murmurs, rubs or gallops were noted. LUNGS: Clear to auscultation bilaterally without appreciable wheezes, rales or rhonchi. ABDOMEN: Soft, nontender, nondistended. Positive bowel sounds. EXTREMITIES: There is no clubbing, cyanosis or edema. ASA Class: II DESCRIPTION OF PROCEDURE: After confirmation of informed consent, the patient's anesthesia plan was rev iewed in detail. Etomidate was chosen. Risks and benefits were reviewed and the patient agreed to proceed. At 1201, the patient was given 4 mg of etomidate. The patient achieved an appropriate level of sedation and was given a 200 joule synchronized cardioversion by Dr. Rangel at the bedside. This was successful in achieving normal sinus rhythm. The patient was monitored until 1214, at which time she reached her baseline mental status and function. The patient tolerated the procedure well. COMPLICATIONS: None ESTIMATED BLOOD LOSS: None RECOMMENDATIONS: Okay to recover in usual fashion. Procedures Pulmonary [id number]: [id number] Con Sedation
== END 2022-01-08 13:15 | disposition home or self-care (01) ==
PROVIDERS: PCP Internal Medicine; Referring Provider Internal Medicine Cardiovascular Disease; Visit Provider Internal Medicine Cardiovascular Disease
DX: I48.91 Unspecified atrial fibrillation (principal); I42.8 Other cardiomyopathies; I50.22 Chronic systolic (congestive) heart failure; E78.5 Hyperlipidemia, unspecified; Z79.01 Long term (current) use of anticoagulants; Z79.899 Other long term (current) drug therapy; Z87.891 Personal history of nicotine dependence
CPT/HCPCS: 92960; 93005; J7040

== ENCOUNTER 2022-02-11 09:59 | Emergency (ER) | payer MEDICARE, OTHER, SELFPAY ==
[2022-02-11] VITALS (15 sets, daily range): BP systolic 94–165; BP diastolic 57–91; PULSE 72–177; RESP 12–18; TEMP 36.8; O2SAT 93–100; BMI 35.5
--- NOTE | 2022-02-11 10:11 | EKG12_ITS ---
Test Reason : CARDIOVERSION Blood Pressure : / mmHG Vent. Rate : 103 BPM Atrial Rate : 103 BPM P-R Int : 202 ms QRS Dur : 098 ms QT Int : 360 ms P-R-T Axes : 033 043 019 degrees QTc Int : 471 ms Sinus tachycardia Nonspecific ST and T wave abnormality Abnormal ECG Confirmed by ALEXANDER BARRAZA, ISHMAEL ([id number]), map editor JAILENE KEARNEY ([id number]) on 02/13/2022 9:40:39 AM Referred By: JENN Confirmed By:ISHMAEL MUNOZ MD
--- NOTE | 2022-02-11 10:12 | EDS_ITS ---
HPI History of Present Illness Chief Complaint: Palpitations Informant: patient Narrative Narrative: Patient presents with cardio. She states she did not feel really well yesterday but does not think her heart rate was fast. She got up this morning and took care of the animals. It seemed normal at that time. It then started to get fast at about 730. She thinks this was the start of her symptoms. She does not feel sick or lightheaded. She is not short of breath or having chest pain. She does have a history of atrial fibrillation diagnosed earlier this year. She has been on Eliquis for some time and did take it this morning. She has not a eat or drink this morning. She was started on flecainide about 7 days ago. She took her first dose last Wednesday. She was cardioverted out of A. fib in early December but it only lasted for about 10 days. This is why she was started on flecainide. Plan is to do another cardioversion to see if she will stay in sinus rhythm after that cardioversion while on flecainide. She has not been sick recently. No fevers chills. Nothing makes this better or worse. [facility] Medical History Arthritis Atrial fibrillation with rapid ventricular response (08/01/21) COVID Former smoker Health care maintenance HFrEF (heart failure with reduced ejection fraction) History of kidney stones Hyperlipidemia Kidney stones Lumbar radiculopathy Migraines Osteoarthritis (arthritis due to wear and tear of joints) Home Medications acetaminophen 500 mg tablet 1,000 mg PO TID #0 tabs 08/03/21 [Rx Last Taken 01/08/22] apixaban 5 mg tablet (Eliquis) 5 mg PO BID #60 tabs 08/19/21 [Rx Last Taken 02/11/22] carvedilol 6.25 mg tablet 6.25 mg PO BID #60 tabs 08/19/21 [Rx Last Taken 01/08/22] furosemide 40 mg tablet 40 mg PO .PRN PRN edema, weight gain, SOB 08/19/21 [History Last Taken Unknown] potassium chloride 20 mEq tablet,extended release(part/cryst) 20 meq PO .PRN PRN When taking diuretics #30 tabs 08/19/21 [Rx Last Taken Unknown] sacubitril 24 mg-valsartan 26 mg tablet (Entresto) 1 tab PO BID #60 tabs 08/19/21 [Rx Last Taken 01/08/22] Handicap Placard #1 ea 09/01/21 [Rx Last Taken Unknown] flecainide 100 mg tablet 100 mg PO Q12H #60 tabs 02/03/22 [Rx Last Taken Unknown] miconazole nitrate 2 % topical powder 1 applic topical BID PRN skin 02/03/22 [History Last Taken Unknown] Allergy/AdvReac Type Severity Reaction Status Date / Time piperacillin [From Zosyn] Allergy Rash Verified 02/11/22 09:59 tazobactam [From Zosyn] Allergy Rash Verified 02/11/22 09:59 amiodarone AdvReac Intermediate Lightheaded, Verified 02/11/22 09:59 feeling of impending doom Family History Father CVA (cerebral vascular accident) Colon cancer Surgical History H/O total hip arthroplasty History of cardioversion (01/08/22) History of laminectomy (~2016) History of total left knee replacement Social History Smoking Status: Former smoker how long ago did patient quit smokin years ago alcohol intake: never substance use type: does not use caffeine: Yes Type: coffee Number of servings: 1 ROS ROS ED Constitutional Constitutional ED: Denies chills or fever(s) Eyes Eyes: Denies change in vision ENT ENT ED: Denies rhinorrhea or sore throat Cardiovascular Cardiovascular: Reports palpitations and racing heartbeat; Denies chest pain Respiratory/Chest Respiratory/Chest: Denies dyspnea Gastrointestinal Gastrointestinal: Denies nausea or vomiting Genitourinary Genitourinary ED: Denies hematuria Musculoskeletal Musculoskeletal: Denies myalgias Integumentary Denies rash Neurologic Neurologic: Denies headache(s), paresthesias or weakness Endocrine Endocrinology: Denies polydipsia or polyuria Hematologic/Lymphatic Hematologic/Lymphatic: Reports easy bleeding and easy bruising Allergic/Immunologic Allergic/Immunologic ED: Denies urticaria EXAM Physical Exam Const Vital Signs: 02/11/22 10:00 09/14/22 10:18 02/11/22 10:20 Temperature 98.2 F Temperature Source Temporal Pulse Rate 168 H Pulse Rate [1] Respiratory Rate 18 Respiratory Rate [1] Respiratory Effort Normal Non-Labored Blood Pressure 111/80 Blood Pressure [1] Blood Pressure Mean 90 Pulse Ox 93 99 Oxygen Delivery Method Room Air Nasal Cannula Oxygen Delivery Method [1] Oxygen Flow Rate (L/min) 2 Oxygen Flow Rate (L/min) [1] 02/11/22 10:24 02/11/22 10:34 02/11/22 10:40 Temperature Temperature Source Pulse Rate 177 H 174 H 174 H Pulse Rate [1] Respiratory Rate 17 12 15 Respiratory Rate [1] Respiratory Effort Blood Pressure 103/69 94/84 H 94/84 H Blood Pressure [1] Blood Pressure Mean 80 87 Pulse Ox 99 100 100 Oxygen Delivery Method Nasal Cannula Nasal Cannula Non-Rebreather Oxygen Delivery Method [1] Oxygen Flow Rate (L/min) 2 2 12 Oxygen Flow Rate (L/min) [1] 02/11/22 10:41 02/11/22 10:49 02/11/22 10:55 Temperature Temperature Source Pulse Rate Pulse Rate [1] 176 H Respiratory Rate Respiratory Rate [1] 15 Respiratory Effort Blood Pressure Blood Pressure [1] 115/91 H Blood Pressure Mean Pulse Ox Oxygen Delivery Method Non-Rebreather Room Air Oxygen Delivery Method [1] Non-Rebreather Oxygen Flow Rate (L/min) 12 Oxygen Flow Rate (L/min) [1] 12 02/11/22 11:00 Temperature Temperature Source Pulse Rate Pulse Rate [1] Respiratory Rate Respiratory Rate [1] Respiratory Effort Blood Pressure Blood Pressure [1] Blood Pressure Mean Pulse Ox Oxygen Delivery Method Room Air Oxygen Delivery Method [1] Oxygen Flow Rate (L/min) Oxygen Flow Rate (L/min) [1] Positive well nourished and well developed Constitutional Narrative: Despite her high heart rate and wider complex, she looks very nontoxic. She is even joking with myself and the staff. General Appearance ED: well developed and NAD HEENT Reports moist mucous membranes Eyes General Eye ED: Negative for scleral icterus Neck no JVD Chest Wall inspection of chest normal and palpation of chest normal Resp normal respiratory effort and clear to auscultation bilaterally Auscultation: Negative for rales Cardio Negative for regular rate Rate: tachycardic GI normal to inspection, nondistended, normoactive bowel sounds and non-tender Back/Spine no CVA tenderness Extremity normal to inspection Extremity Narrative: No edema, cords, tenderness or distended veins. No asymmetry. General Extremety ED: Negative for edema or tenderness General Extremity: Negative for edema Neuro Sensorium / Orientation: alert Skin no rashes or lesions noted MDM MDM MDM Narrative Medical decision making narrative: Procedure: Procedural sedation and cardioversion: We discussed risk benefits and options. I discussed the case with her mortgage loan underwriter, Dr. Rangel. With her wide-complex tachycardic rhythm and on flecai nide and Eliquis we did cardiovert her she was sedated with 6 mg of etomidate. She was cardioverted a single times with 200 J synchronized. She went into a normal sinus rhythm about 1 15-1 05. She is now down to about 75 and has stayed in sinus rhythm for couple hours. She feels fine. Her mortgage loan underwriter called back again. We will have her follow-up. Lab Data Attestation: I reviewed the patient's lab results. Labs: Laboratory Results - last 24 hr 02/11/22 02/11/22 10:15 10:15 WBC 11.4 H RBC 5.17 Hgb 16.0 H Hct 49.4 H MCV 95.6 MCH 30.9 MCHC 32.4 RDW Std Deviation 46.5 H RDW Coeff of Kurtis 13.2 Plt Count 256 MPV 9.6 Immature Gran % (Auto) 0.400 Neut % (Auto) 70.1 H Lymph % (Auto) 20.4 Starke % (Auto) 7.1 Eos % (Auto) 1.6 Baso % (Auto) 0.4 Absolute Neuts (auto) 8.0 H Absolute Lymphs (auto) 2.32 Nucleated RBC % 0 Sodium 140 Potassium 4.3 Chloride 106 Carbon Dioxide 27.0 Anion Gap 7 BUN 22 H Creatinine 1.28 H Estim Creat Clear Calc 40.91 Est GFR (MDRD) Af Amer 53 L Est GFR (MDRD) Non-Af 44 L BUN/Creatinine Ratio 17.2 Glucose 117 H Calcium 9.5 Magnesium 2.1 Troponin I High Sens 18 Radiography Diagnostic Testing: Clinical Impression(s) from Imaging Studies Chest X-Ray 02/11/22 11:00 IMPRESSION: Borderline cardiomegaly. The lungs are clear. Electronically Signed: Brooks Medina MD at 11:14 EDT , Discharge Plan Triage Chief Complaint: Palpitations ED Provider: Kumar Rodriguez Dx/Rx/DC Orders Clinical Impression: Wide-complex tachycardia, Encounter for cardioversion procedure Instructions: ED About Arrhythmias, ED Palpitations Prescriptions: No Action furosemide 40 mg tablet 40 mg PO .PRN PRN (Reason: edema, weight gain, SOB) potassium chloride 20 mEq tablet,ER particles/crystals 20 meq PO .PRN PRN (Reason: When taking diuretics) Qty: 30 0RF Eliquis 5 mg tablet 5 mg PO BID Qty: 60 11RF carvedilol 6.25 mg tablet 6.25 mg PO BID Qty: 60 11RF Entresto 24-26 mg tablet 1 tab PO BID Qty: 60 11RF miconazole nitrate 2 % powder 1 applic topical BID PRN (Reason: skin) (DME) Handicap Placard See Rx Instructions .ROUTE .MEDSUPPLY Qty: 1 0RF Rx Instructions: As directed, length of time 3 years flecainide 100 mg tablet 100 mg PO Q12H Qty: 60 11RF acetaminophen 500 mg Tablet 1,000 mg PO TID Qty: 0 0RF Primary Care Provider: Yeis Clinton Referrals: Skip Rangel MD [Med Staff - Active Staff] - Keep Shaunna appointment (Call office for follow-up appoint) Yesi Clinton MD [Primary Care Provider] - Disposition Disposition: Home, Self Care
--- NOTE | 2022-02-11 10:15 | EKG12_ITS ---
Test Reason : TACHY Blood Pressure : / mmHG Vent. Rate : 173 BPM Atrial Rate : 000 BPM P-R Int : 000 ms QRS Dur : 174 ms QT Int : 300 ms P-R-T Axes : 000 -71 098 degrees QTc Int : 509 ms Wide QRS tachycardia with Premature ventricular complexes or Fusion complexes Left axis deviation Right bundle branch block Inferior infarct , age undetermined Abnormal ECG Confirmed by ALEXANDER BARRAZA, ISHMAEL ([id number]), scientific publications editor JIALENE KEARNEY ([id number]) on 02/13/2022 10:01:43 AM Referred By: EJNN Confirmed By:ISHMAEL MUNOZ MD
[2022-02-11 10:23] LABS: Absolute Lymphocyte Count 2.32 X10^3/uL (0.83-4.51); Basophil# 0.04 X10^3/uL; Basophil% 0.4 % (0-1); Eosinophil# 0.18 X10^3/uL; Eosinophils% 1.6 % (0-5); Hematocrit 49.4 % (37-47); Lymphocyte # 2.32 X10^3/ul (0.83-4.51); Lymphocyte % 20.4 % (19-41); Mean Corp Hgb Conc 32.4 g/dL (32-36); Mean Corpuscular Hgb 30.9 pg (27.0-32.0); Mean Corpuscular Volume 95.6 fL (81-99); Mean Platelet Vol. 9.6 fl (6.2-12.0); Monocyte# 0.81 X10^3/uL; Monocyte% 7.1 % (0-10); NRBC Flagged by Analyzer 0 % (0-5); Neutrophil # 7.98 X10^3/uL (2.7-7.7); Neutrophil % 70.1 % (47-70); Platelet Count 256 K/mm3 (150-450); RBC Distribution Width CV 13.2 % (11.6-14.6); RBC Distribution Width SD 46.5 fl (35.1-43.9); Red Blood Count 5.17 M/mm3 (4.2-5.4); White Blood Count 11.4 K/mm3 (4.4-11.0)
[2022-02-11 10:43] LABS: Anion Gap 7 (5-15); BUN 22 mg/dL (7-18); BUN/Creat Ratio 17.2 RATIO (10-20); Calcium,Total 9.5 mg/dL (8.5-10.1); Chloride 106 mmol/L (98-107); Creatinine, Serum 1.28 mg/dL (0.55-1.02); EST Glomerular Filtration Rate 44 mL/min (>60); Est Glom Filt Rate - Afr Amer 53 mL/min (>60); Estimated Creatinine Clearance 40.91 ml/min; Glucose 117 mg/dL (74-106); Magnesium 2.1 mg/dL (1.6-2.6); Potassium 4.3 mmol/L (3.5-5.1); Sodium Level 140 mmol/L (136-145); Troponin-I HS (w/2H Reflex) 18 pg/mL (3.0-54.0)
[2022-02-11] MEDS: Etomidate 20 MG/10 ML Vial 6 MG IV (10:59)
--- NOTE | 2022-02-11 11:00 | RAD_ITS ---
STUDY: X-RAY CHEST REASON FOR EXAM: Female, 66 years old. Chest pain TECHNIQUE: Single AP portable view of the chest. COMPARISON: Comparison is made with prior study dated 11/18/2021. FINDINGS: EKG electrodes are seen. The lungs are clear and expanded. There is no demonstrated pleural abnormality. There is borderline cardiomegaly. Normal mediastinum and luis alfredo. Normal visualized pulmonary arteries. There is atherosclerotic calcification of the aortic arch with tortuosity. There are diffuse degenerative changes of the visualized thoracic spine. There is degenerative osteoarthritis of the bilateral shoulders. There is no demonstrated abnormality of the visualized soft tissue structures of the upper abdomen. RAD/Chest 1 View (Portable) IMPRESSION: Borderline cardiomegaly. The lungs are clear. Electronically Signed: Brooks Medina MD at 11:14 EDT ,
[2022-02-11 12:20] LABS: Reflex Troponin-HS? (from REC) Y
[2022-02-11 13:28] LABS: Troponin-I HS 36 pg/mL (3.0-54.0)
== END 2022-02-11 13:24 | disposition home or self-care (01) ==
PROVIDERS: Emergency Provider Emergency Medicine; PCP Internal Medicine; Visit Provider Emergency Medicine
DX: I47.2 Ventricular tachycardia (principal); I50.22 Chronic systolic (congestive) heart failure; I48.91 Unspecified atrial fibrillation; E78.5 Hyperlipidemia, unspecified; Z79.01 Long term (current) use of anticoagulants; Z79.899 Other long term (current) drug therapy; Z87.891 Personal history of nicotine dependence
CPT/HCPCS: 71045; 80048; 83735; 84484; 85025; 92960; 93005; 96361; 96374; 99251; 99284; J7030; A4216; G0463

== ENCOUNTER → 2022-02-19 | Outpatient (CLI) | payer MEDICARE, OTHER, SELFPAY | END | disposition home or self-care (01) | LOC: SL 19:58 | PROVIDERS: PCP Internal Medicine; Referring Provider Nurse Practitioner Family; Visit Provider Nurse Practitioner Family | DX: G47.10 Hypersomnia, unspecified (principal); I48.91 Unspecified atrial fibrillation | CPT/HCPCS: 95810 ==

== ENCOUNTER → 2022-03-26 | Outpatient (CLI) | payer MEDICARE, OTHER, SELFPAY | END | disposition home or self-care (01) | LOC: SL 10:32 | PROVIDERS: PCP Internal Medicine; Referring Provider Nurse Practitioner Acute Care; Visit Provider Nurse Practitioner Acute Care | DX: Z00.00 Encounter for general adult medical examination without abnormal findings (principal) ==

== ENCOUNTER → 2022-04-03 | Outpatient (CLI) | payer MEDICARE, OTHER, SELFPAY ==
[2022-04-03 16:43] LABS: Hematocrit 44.9 % (37-47); Hemoglobin 14.8 g/dL (12.0-15.0); Mean Corpuscular Hgb 31.2 pg (27.0-32.0); Mean Corpuscular Volume 94.7 fL (81-99); Mean Platelet Vol. 9.5 fl (6.2-12.0); Platelet Count 244 K/mm3 (150-450); RBC Distribution Width CV 12.6 % (11.6-14.6); Red Blood Count 4.74 M/mm3 (4.2-5.4); White Blood Count 8.5 K/mm3 (4.4-11.0)
[2022-04-03 17:12] LABS: BNP,B-Type NATRIURETIC PEPTIDE 143.8 pg/mL (0-100)
[2022-04-03 17:24] LABS: Anion Gap 4 (5-15); BUN 23 mg/dL (7-18); BUN/Creat Ratio 23.5 RATIO (10-20); Calcium,Total 9.4 mg/dL (8.5-10.1); Chloride 105 mmol/L (98-107); Creatinine, Serum 0.98 mg/dL (0.55-1.02); EST Glomerular Filtration Rate 60 mL/min (>60); Est Glom Filt Rate - Afr Amer 73 mL/min (>60); Glucose 97 mg/dL (74-106); Magnesium 2.3 mg/dL (1.6-2.6); Potassium 4.3 mmol/L (3.5-5.1); Sodium Level 138 mmol/L (136-145); Thyroid Stim Hormone (TSH) 1.04 uIU/mL (0.358-3.74)
== END | disposition home or self-care (01) ==
LOC: LAB 15:46
PROVIDERS: PCP Internal Medicine; Visit Provider Nurse Practitioner Family
DX: I50.20 Unspecified systolic (congestive) heart failure (principal); I48.91 Unspecified atrial fibrillation; R00.0 Tachycardia, unspecified
CPT/HCPCS: 36415; 80048; 83735; 83880; 84443; 85027

== ENCOUNTER 2022-04-04 11:05 | Emergency (ER) | payer MEDICARE, OTHER, SELFPAY ==
[2022-04-04 11:06] VITALS: BP 179/85; PULSE 70; RESP 14; TEMP 36.6; O2SAT 99; BMI 35.2
--- NOTE | 2022-04-04 11:30 | RAD_ITS ---
STUDY: X-RAY CHEST REASON FOR EXAM: Female, 66 years old. Dyspnea TECHNIQUE: Single frontal view of the chest. COMPARISON: 02/11/2022 FINDINGS: There is no new focal consolidation. Normal size heart. Normal mediastinum and luis alfredo. Normal visualized pulmonary arteries. Normal visualized aortic arch and descending thoracic aorta. There are diffuse degenerative changes of the visualized thoracic spine. Normal visualized ribs, clavicles, and shoulders. There is no demonstrated abnormality of the visualized soft tissue structures of the upper abdomen. RAD/Chest 1 View (Portable) IMPRESSION: No acute cardiopulmonary process. Electronically Signed: Lisa Bynum MD at 11:48 EDT ,
[2022-04-04 11:44] LABS: Bacteria 0 SEEN /hpf (None Seen); Mucous, Urine 0 SEEN /hpf (<or=2+); Red Blood Cells-Urine 0 SEEN /hpf (0-5); Squamous Epithelial Cells - UA 0 SEEN /hpf (5-10); White Blood Cells 0 SEEN /hpf (0-5)
--- NOTE | 2022-04-04 11:44 | EKG12_ITS ---
Test Reason : SOB Blood Pressure : / mmHG Vent. Rate : 058 BPM Atrial Rate : 058 BPM P-R Int : 168 ms QRS Dur : 112 ms QT Int : 470 ms P-R-T Axes : 018 020 055 degrees QTc Int : 461 ms Sinus bradycardia Low voltage QRS Incomplete left bundle branch block Nonspecific T wave abnormality Abnormal ECG Confirmed by ALEXANDER BARRAZA, ISHMAEL ([id number]), editorial director ZAIN ORELLANA ([id number]) on 04/06/2022 11:45:37 AM Referred By: Confirmed By:ISHMAEL MUNOZ MD
[2022-04-04 12:11] LABS: Color, Urine Yellow (Yellow); Glucose, Dipstick Normal (Normal); Ketone-Dipstick Negative (Negative); Leukocyte Esterase-Dipstick 25 /ul (Negative); Nitrite-Dipstick Negative (Negative); Occult Blood-Urine 10 /ul (Negative); Protein-Dipstick 15 mg/dl (Negative); Specific Gravity, Urine 1.015 (1.002-1.030); Urine Bilirubin Dipstick Negative (Negative); Urine Clarity Clear (Clear); Urine Urobilinogen Normal (Normal)
[2022-04-04 12:44] VITALS: BP 130/53; PULSE 58; RESP 18; O2SAT 98
--- NOTE | 2022-04-04 13:42 | EX.ED.DYSGE1 ---
HPI History of Present Illness Chief Complaint: Fatigue [facility] Medical History Arthritis Atrial fibrillation with rapid ventricular response (08/01/21) COVID Former smoker Health care maintenance HFrEF (heart failure with reduced ejection fraction) History of kidney stones Hyperlipidemia Kidney stones Lumbar radiculopathy Migraines Osteoarthritis (arthritis due to wear and tear of joints) Home Medications apixaban 5 mg tablet (Eliquis) 5 mg PO BID #60 tabs 08/19/21 [Rx Last Taken 02/11/22] carvedilol 6.25 mg tablet 6.25 mg PO BID #60 tabs 08/19/21 [Rx Last Taken 01/08/22] furosemide 40 mg tablet 40 mg PO .PRN PRN edema, weight gain, SOB 08/19/21 [History Last Taken Unknown] potassium chloride 20 mEq tablet,extended release(part/cryst) 20 meq PO .PRN PRN When taking diuretics #30 tabs 08/19/21 [Rx Last Taken Unknown] sacubitril 24 mg-valsartan 26 mg tablet (Entresto) 1 tab PO BID #60 tabs 08/19/21 [Rx Last Taken 01/08/22] Handicap Placard #1 ea 09/01/21 [Rx Last Taken Unknown] flecainide 100 mg tablet 100 mg PO Q12H #60 tabs 02/03/22 [Rx Last Taken Unknown] miconazole nitrate 2 % topical powder 1 applic topical BID PRN skin 02/03/22 [History Last Taken Unknown] acetaminophen 500 mg tablet 1,000 mg PO TID pain 03/18/22 [History Last Taken Unknown] carvedilol 25 mg tablet (Coreg) 25 mg PO BID #60 tabs 04/04/22 [Rx Last Taken Unknown] Allergy/AdvReac Type Severity Reaction Status Date / Time piperacillin [From Zosyn] Allergy Rash Verified 04/04/22 11:06 tazobactam [From Zosyn] Allergy Rash Verified 04/04/22 11:06 amiodarone AdvReac Intermediate Lightheaded, Verified 04/04/22 11:06 feeling of impending doom Family History Father CVA (cerebral vascular accident) Colon cancer Surgical History H/O total hip arthroplasty History of cardioversion (01/08/22) History of laminectomy (~2015) History of total left knee replacement Social History Smoking Status: Former smoker how long ago did patient quit smokin years ago alcohol intake: never substance use type: does not use caffeine: Yes Type: coffee Number of servings: 1 EXAM Physical Exam Const Vital Signs: 04/04/22 11:06 04/04/22 11:10 04/04/22 12:44 Temperature 97.8 F Temperature Source Oral Pulse Rate 70 58 L Respiratory Rate 14 18 Respiratory Effort Normal Non-Labored Blood Pressure 179/85 H 130/53 H Blood Pressure Mean 116 78 Pulse Ox 99 98 Oxygen Delivery Method Room Air Room Air MDM MDM MDM Narrative Medical decision making narrative: Patient had blood work yesterday which was normal. Her BNP was slightly elevated but at the lowest she is had. Chest x-ray today shows no acute cardiopulmonary process on my interpretation the radiologist interprets this and agrees. She is not having any chest pain. She has had some bouts of tachycardia. I tested her for COVID today and this was negative. This was tested because she states she just felt a little unwell. I tested her urinalysis today which is also negative because she had concern for possible UTI. EKG was obtained which shows a sinus bradycardia with a ventricular rate of 58 bpm. MI interval 168 ms, QRS duration 112 ms, QTC 461 ms. I discussed the case with Dr. Neves who recommended her to discontinue the use of flecainide and indicated that this would be causing her to have the symptoms of tachycardia given that she has poor left ventricular function. He recommended increasing her carvedilol to 25 mg p.o. twice daily. This was discussed with her. She will be discharged home in stable condition. She is to call cardiology on Wednesday. Impression: 1. Generalized fatigue 2. Tachycardia resolved 3. Dyspnea Lab Data Labs: Laboratory Results - last 24 hr 04/04/22 11:30 Urine Color Yellow Urine Clarity Clear Urine pH 6.0 Ur Specific [place] 1.015 Urine Protein 15 H Urine Glucose (UA) Normal Urine Ketones Negative Urine Occult Blood 10 H Urine Nitrite Negative Urine Bilirubin Negative Urine Urobilinogen Normal Ur Leukocyte Esterase 25 H Urine RBC 0 SEEN Urine WBC 0 SEEN Ur Squamous Epith Cells 0 SEEN Urine Bacteria 0 SEEN Urine Mucus 0 SEEN Radiography Diagnostic Testing: Clinical Impression(s) from Imaging Studies Chest X-Ray 04/04/22 11:30 IMPRESSION: No acute cardiopulmonary process. Electronically Signed: Lisa Bynum MD at 11:48 EDT Reading Location ID and State: [facility] / [place] Tel , Service support , Discharge Plan Triage Chief Complaint: Fatigue Other Complaint: Palpitations ED Provider: Igor Parry Dx/Rx/DC Orders Instructions: ED Palpitations Prescriptions: New carvedilol [Coreg] 25 mg tablet 25 mg PO BID Qty: 60 0RF Rx Instructions: must administer with a meal/food No Action furosemide 40 mg tablet 40 mg PO .PRN PRN (Reason: edema, weight gain, SOB) potassium chloride 20 mEq tablet,ER particles/crystals 20 meq PO .PRN PRN (Reason: When taking diuretics) Qty: 30 0RF Eliquis 5 mg tablet 5 mg PO BID Qty: 60 11RF carvedilol 6.25 mg tablet 6.25 mg PO BID Qty: 60 11RF Entresto 24-26 mg tablet 1 tab PO BID Qty: 60 11RF miconazole nitrate 2 % powder 1 applic topical BID PRN (Reason: skin) (DME) Handicap Placard See Rx Instructions .ROUTE .MEDSUPPLY Qty: 1 0RF Rx Instructions: As directed, length of time 3 years flecainide 100 mg tablet 100 mg PO Q12H Qty: 60 11RF acetaminophen 500 mg tablet 1,000 mg PO TID Primary Care Provider: Yesi Clinton Referrals: Yesi Clinton MD [Primary Care Provider] - Activity Restrictions/Additional Instructions: I spoke with Dr. Warner who is on-call for Dr. Rangel. He recommended discontinuing her flecainide and increasing your carvedilol to 25 mg p.o. twice daily as we discussed. He recommended following up with the cardiology office on Wednesday. Disposition Disposition: Home, Self Care
== END 2022-04-04 13:55 | disposition home or self-care (01) ==
LOC: ED 11:39
PROVIDERS: Emergency Provider Student in an Organized Health Care Education/Training Program; PCP Internal Medicine; Visit Provider Student in an Organized Health Care Education/Training Program
DX: R53.83 Other fatigue (principal); I50.22 Chronic systolic (congestive) heart failure; I48.91 Unspecified atrial fibrillation; R00.1 Bradycardia, unspecified; R00.2 Palpitations; Z20.822 Contact with and (suspected) exposure to COVID-19; E78.5 Hyperlipidemia, unspecified; R06.00 Dyspnea, unspecified; Z79.01 Long term (current) use of anticoagulants; Z79.899 Other long term (current) drug therapy; Z87.891 Personal history of nicotine dependence
CPT/HCPCS: 71045; 81001; 87426; 93005; 99284; A4216

== ENCOUNTER → 2022-04-20 | Outpatient (CLI) | payer MEDICARE, OTHER, SELFPAY ==
--- NOTE | 2022-04-20 12:59 | ECHOL_ITS ---
Reason For Study: CHF Procedure This was a 2D Doppler, Color Flow transthoracic echocardiogram. Exam performed in department. Left Ventricle Normal LV size. The estimated ejection fraction is 40 %. There is mild global hypokinesis of the left ventricle. Right Ventricle Normal RV size. Normal systolic function. Atria Normal left atrium. Normal right atrium. Mitral Valve There is mild to moderate mitral annular calcification. Mild (1+) eccentric mitral valve insufficiency. Tricuspid Valve Normal tricuspid valve. Aortic Valve The aortic valve is not well visualized. Pulmonic Valve Normal pulmonic valve. Great Vessels Normal aortic root. The pulmonary artery is normal size. Normal inferior vena cava. Pericardium/Pleural No pericardial effusion. MMode/2D Measurements & Calculations LAV(MOD-bp): 54.0 ml LVAd ap4: 26.2 cm2 SV(MOD-sp4): 35.2 ml LAV(MOD-bp) Indexed: 25.7 ml/m2 LVLd ap4: 7.7 cm LAV(MOD-sp2): 83.4 ml EDV(MOD-sp4): 73.8 ml LAV(MOD-sp4): 31.0 ml EDV(sp4-el): 75.0 ml LVAs ap4: 16.9 cm2 LVLs ap4: 6.8 cm ESV(MOD-sp4): 38.6 ml ESV(sp4-el): 35.3 ml EF(MOD-sp4): 47.7 % EF(sp4-el): 52.9 % SV(sp4-el): 39.7 ml LA A4 area: 13.7 cm2 LA dimension(2D): 4.4 cm RA A4 area: 9.9 cm2 ECHO/Echo, Limited Study Interpretation Summary Normal LV size. The estimated ejection fraction is 40 %. There is mild global hypokinesis of the left ventricle. There is mild to moderate mitral annular calcification. Compared to previous study, the left ventricular systolic function has improved .. Ordering Physician: Ashkan Remy Referring Physician: Ashkan Remy Performed By: Holly Motley RCS
== END | disposition home or self-care (01) ==
LOC: CVS 12:58
PROVIDERS: PCP Internal Medicine; Referring Provider Nurse Practitioner Family; Visit Provider Nurse Practitioner Family
DX: I50.20 Unspecified systolic (congestive) heart failure (principal); I48.91 Unspecified atrial fibrillation; G47.30 Sleep apnea, unspecified
CPT/HCPCS: 93308

== ENCOUNTER 2022-09-16 16:08 | Emergency (ER) | payer MEDICARE, OTHER, SELFPAY ==
[2022-09-16 16:09] VITALS: BP 181/89; PULSE 91; RESP 18; TEMP 36.8; O2SAT 98; BMI 35.0
--- NOTE | 2022-09-16 16:26 | EX.ED.DYSGE1 ---
HPI History of Present Illness Chief Complaint: Hypertension Narrative Narrative: 67-year-old female who is a patient of Dr. Rangel ED presenting with abnormal blood pressures. Patient states she has a history of atrial fibrillation and CHF with reduced ejection fraction. She states that she is on Eliquis, flecainide, carvedilol. Over the course of the weekend she noted her blood pressures were getting low and she states that her systolic blood pressures run in the 90s. She called Dr. Rangel's office and reportedly was told to reduce her carvedilol to 6.25 on Wednesday. She states now her pressures have been running a little bit higher, but they do go up and down. She states her blood pressures was in the 180s at home systolically. She also states that she developed some left jaw pain which was intermittent over the last couple of days. She states she called cardiology yesterday and did not receive a phone call back but today when she called and discussed with them the jaw pain they recommend she come to the ER. She is not having chest pain [facility] Medical History Arthritis Atrial fibrillation with rapid ventricular response (08/01/21) COVID Foot drop, right Former smoker Health care maintenance HFrEF (heart failure with reduced ejection fraction) History of kidney stones Hyperlipidemia Kidney stones Lumbar radiculopathy Migraines Osteoarthritis (arthritis due to wear and tear of joints) Right knee pain Home Medications furosemide 40 mg tablet 40 mg PO .PRN PRN edema, weight gain, SOB 08/19/21 [History Last Taken Unknown] potassium chloride 20 mEq tablet,extended release(part/cryst) 20 meq PO .PRN PRN When taking diuretics #30 tabs 08/19/21 [Rx Last Taken Unknown] Handicap Placard #1 ea 09/01/21 [Rx Last Taken Unknown] miconazole nitrate 2 % topical powder 1 applic topical BID PRN skin 02/03/22 [History Last Taken Unknown] acetaminophen 500 mg tablet 1,000 mg PO TID pain 03/18/22 [History Last Taken Unknown] flecainide 50 mg tablet 50 mg PO BID #180 tabs 06/30/22 [Rx Last Taken Unknown] apixaban 5 mg tablet (Eliquis) 5 mg PO BID #60 tabs 08/26/22 [Rx Last Taken Unknown] sacubitril 24 mg-valsartan 26 mg tablet (Entresto) 1 tab PO BID #60 tabs 08/26/22 [Rx Last Taken Unknown] carvedilol 6.25 mg tablet 6.25 mg PO BID 09/14/22 [History Last Taken Unknown] Allergy/AdvReac Type Severity Reaction Status Date / Time piperacillin [From Zosyn] Allergy Rash Verified 09/16/22 16:11 tazobactam [From Zosyn] Allergy Rash Verified 09/16/22 16:11 amiodarone AdvReac Intermediate Lightheaded, Verified 09/16/22 16:11 feeling of impending doom Family History Father CVA (cerebral vascular accident) Colon cancer Surgical History H/O total hip arthroplasty History of cardioversion (01/08/22) History of laminectomy (~2015) History of total left knee replacement Social History Smoking Status: Former smoker how long ago did patient quit smokin years ago alcohol intake: never substance use type: does not use caffeine: Yes Type: coffee Number of servings: 1 EXAM Physical Exam Const Vital Signs: 09/16/22 16:09 09/16/22 16:27 09/16/22 16:38 Temperature 98.3 F Temperature Source Temporal Pulse Rate 91 Respiratory Rate 18 Respiratory Effort Normal Non-Labored Respiratory Pattern Normal Blood Pressure 181/89 H Blood Pressure Mean 119 Pulse Ox 98 Oxygen Delivery Method Room Air Room Air 09/16/22 18:16 Temperature Temperature Source Pulse Rate 62 Respiratory Rate 18 Respiratory Effort Respiratory Pattern Blood Pressure 104/68 Blood Pressure Mean 80 Pulse Ox 97 Oxygen Delivery Method Room Air MDM MDM MDM Narrative Medical decision making narrative: Differential at this point includes ACS, pneumonia, hypotension, hypertension, electrolyte abnormality, dehydration, anemia. Unlikely to be PE as the patient is on Eliquis. CBC to assess white blood cell count, hemoglobin, platelets, differential. BMP to assess renal function, electrolytes, high-sensitivity troponin, BNP, chest x-ray and EKG to assess for cardiac etiology. CBC and BMP are unremarkable. BNP 40.8. High-sensitivity troponin is 10. EKG sinus rhythm with a ventricular to 70 bpm without evidence of ischemia. Chest x-ray my interpretation shows no acute cardiopulmonary process. Radiologist are persistent agrees. Patient's blood pressure now down to 119/80 in the room. She feels well. I recommended follow-up with the heart group tomorrow. I believe she is having her blood pressure adjusted tonight. Return precautions were discussed. Impression: 1. Hypertension 2. Hypotension 3. Left-sided jaw pain Lab Data Labs: Laboratory Results - last 24 hr 09/16/22 09/16/22 09/16/22 16:35 16:35 16:35 WBC 9.0 RBC 4.75 Hgb 14.8 Hct 44.3 MCV 93.3 MCH 31.2 MCHC 33.4 RDW Std Deviation 43.0 RDW Coeff of Kurtis 12.5 Plt Count 247 MPV 9.1 Immature Gran % (Auto) 0.300 Neut % (Auto) 60.9 Lymph % (Auto) 29.1 [place] % (Auto) 7.7 Eos % (Auto) 1.6 Baso % (Auto) 0.4 Absolute Neuts (auto) 5.5 Absolute Lymphs (auto) 2.61 Nucleated RBC % 0 Sodium 136 Potassium 4.0 Chloride 104 Carbon Dioxide 27.0 Anion Gap 5 BUN 21 H Creatinine 0.99 Estim Creat Clear Calc 52.15 Est GFR (MDRD) Af Amer 72 Est GFR (MDRD) Non-Af 59 L BUN/Creatinine Ratio 21.2 H Glucose 94 Calcium 9.4 Troponin I High Sens 10 B-Natriuretic Peptide 40.8 Urine Color Urine Clarity Urine pH Ur Specific [place] Urine Protein Urine Glucose (UA) Urine Ketones Urine Occult Blood Urine Nitrite Urine Bilirubin Urine Urobilinogen Ur Leukocyte Esterase Urine RBC Urine WBC Ur Squamous Epith Cells Urine Bacteria Urine Mucus 09/16/22 17:00 WBC RBC Hgb Hct MCV MCH MCHC RDW Std Deviation RDW Coeff of Kurtis Plt Count MPV Immature Gran % (Auto) Neut % (Auto) Lymph % (Auto) [place] % (Auto) Eos % (Auto) Baso % (Auto) Absolute Neuts (auto) Absolute Lymphs (auto) Nucleated RBC % Sodium Potassium Chloride Carbon Dioxide Anion Gap BUN Creatinine Estim Creat Clear Calc Est GFR (MDRD) Af Amer Est GFR (MDRD) Non-Af BUN/Creatinine Ratio Glucose Calcium Troponin I High Sens B-Natriuretic Peptide Urine Color Straw Urine Clarity Clear Urine pH 6.5 Ur Specific [place] 1.005 Urine Protein Negative Urine Glucose (UA) Normal Urine Ketones 5 H Urine Occult Blood Negative Urine Nitrite Negative Urine Bilirubin Negative Urine Urobilinogen Normal Ur Leukocyte Esterase Negative Urine RBC 0 SEEN Urine WBC 0 SEEN Ur Squamous Epith Cells 0-5 SEEN Urine Bacteria 0 SEEN Urine Mucus 0 SEEN Radiography Diagnostic Testing: Clinical Impression(s) from Imaging Studies Chest X-Ray 09/16/22 16:42 IMPRESSION: Degenerative changes, as described above. No demonstrated acute cardiopulmonary process. No major interval change. Electronically Signed: Edilberto Booth DO at 17:02 EDT Reading Location ID and State: [address] [place] [address] Tel [phone], Service support , Discharge Plan Triage Chief Complaint: Hypertension ED Provider: Igor Parry Dx/Rx/DC Orders Instructions: ED Hypertension, Established Prescriptions: No Action furosemide 40 mg tablet 40 mg PO .PRN PRN (Reason: edema, weight gain, SOB) potassium chloride 20 mEq tablet,ER particles/crystals 20 meq PO .PRN PRN (Reason: When taking diuretics) Qty: 30 0RF miconazole nitrate 2 % powder 1 applic topical BID PRN (Reason: skin) (DME) Handicap Placard See Rx Instructions .ROUTE .MEDSUPPLY Qty: 1 0RF Rx Instructions: As directed, length of time 3 years acetaminophen 500 mg tablet 1,000 mg PO TID flecainide 50 mg tablet 50 mg PO BID Qty: 180 3RF Entresto 24-26 mg tablet 1 tab PO BID Qty: 60 11RF Eliquis 5 mg tablet 5 mg PO BID Qty: 60 11RF carvedilol 6.25 mg tablet 6.25 mg PO BID Rx Instructions: must administer with a meal/food Primary Care Provider: Yesi Clinton Referrals: Yesi Clinton MD [Primary Care Provider] - Disposition Disposition: Home, Self Care
--- NOTE | 2022-09-16 16:32 | EKG12_ITS ---
Test Reason : JAW PAIN Blood Pressure : / mmHG Vent. Rate : 070 BPM Atrial Rate : 070 BPM P-R Int : 144 ms QRS Dur : 086 ms QT Int : 414 ms P-R-T Axes : 013 031 061 degrees QTc Int : 447 ms Normal sinus rhythm Junctional ST depression, probably normal Borderline ECG Confirmed by ALEXANDER BARRAZA, ISHMAEL ([id number]), school photograph editor ZAIN ORELLANA ([id number]) on 09/18/2022 2:21:58 PM Referred By: LAVINIA Confirmed By:ISHMAEL MUNOZ MD
--- NOTE | 2022-09-16 16:42 | RAD_ITS ---
STUDY: X-RAY CHEST REASON FOR EXAM: Female, 67 years old. Chest pain. Patient states her blood pressure has been irregular. Complaints of fatigue and intermittent jaw discomfort for 3 days. TECHNIQUE: Single AP portable view of the chest. COMPARISON: April 04, 2022. FINDINGS: The lungs are clear and expanded. There is no demonstrated pleural abnormality. Normal size heart. Normal mediastinum and luis alfredo. Normal visualized pulmonary arteries. Normal visualized aortic arch and descending thoracic aorta. There are diffuse degenerative changes of the visualized thoracic spine. There is degenerative osteoarthritis of the bilateral shoulders. There is no demonstrated abnormality of the visualized soft tissue structures of the upper abdomen. RAD/Chest 1 View (Portable) IMPRESSION: Degenerative changes, as described above. No demonstrated acute cardiopulmonary process. No major interval change. Electronically Signed: Edliberto Booth DO at 17:02 EDT ,
[2022-09-16 16:51] LABS: Absolute Lymphocyte Count 2.61 X10^3/uL (0.83-4.51); Absolute Neutrophil Count 5.5 X10^3/uL (2.0-7.7); Basophil# 0.04 X10^3/uL; Basophil% 0.4 % (0-1); Eosinophil# 0.14 X10^3/uL; Eosinophils% 1.6 % (0-5); Hematocrit 44.3 % (37-47); Hemoglobin 14.8 g/dL (12.0-15.0); Lymphocyte # 2.61 X10^3/ul (0.83-4.51); Lymphocyte % 29.1 % (19-41); Mean Corp Hgb Conc 33.4 g/dL (32-36); Mean Corpuscular Hgb 31.2 pg (27.0-32.0); Mean Corpuscular Volume 93.3 fL (81-99); Mean Platelet Vol. 9.1 fl (6.2-12.0); Monocyte# 0.69 X10^3/uL; Monocyte% 7.7 % (0-10); NRBC Flagged by Analyzer 0 % (0-5); Neutrophil # 5.46 X10^3/uL (2.7-7.7); Neutrophil % 60.9 % (47-70); Platelet Count 247 K/mm3 (150-450); RBC Distribution Width CV 12.5 % (11.6-14.6); Red Blood Count 4.75 M/mm3 (4.2-5.4)
[2022-09-16 17:06] LABS: Bacteria 0 SEEN /hpf (None Seen); Mucous, Urine 0 SEEN /hpf (<or=2+); Red Blood Cells-Urine 0 SEEN /hpf (0-5); White Blood Cells 0 SEEN /hpf (0-5)
[2022-09-16 17:08] LABS: Anion Gap 5 (5-15); BUN 21 mg/dL (7-18); BUN/Creat Ratio 21.2 RATIO (10-20); Calcium,Total 9.4 mg/dL (8.5-10.1); Chloride 104 mmol/L (98-107); Creatinine, Serum 0.99 mg/dL (0.55-1.02); EST Glomerular Filtration Rate 59 mL/min (>60); Est Glom Filt Rate - Afr Amer 72 mL/min (>60); Estimated Creatinine Clearance 52.15 ml/min; Glucose 94 mg/dL (74-106); Sodium Level 136 mmol/L (136-145); Troponin-I HS 10 pg/mL (3.0-54.0)
[2022-09-16 17:15] LABS: BNP,B-Type NATRIURETIC PEPTIDE 40.8 pg/mL (0-100)
[2022-09-16 17:39] LABS: Color, Urine Straw (Yellow); Glucose, Dipstick Normal (Normal); Ketone-Dipstick 5 mg/dl (Negative); Leukocyte Esterase-Dipstick Negative /ul (Negative); Nitrite-Dipstick Negative (Negative); Occult Blood-Urine Negative /ul (Negative); Protein-Dipstick Negative (Negative); Specific Gravity, Urine 1.005 (1.002-1.030); Urine Bilirubin Dipstick Negative (Negative); Urine Clarity Clear (Clear); Urine Urobilinogen Normal (Normal); Urine pH 6.5 (5.0 - 8.0)
[2022-09-16 17:46] LABS: Squamous Epithelial Cells - UA 0-5 SEEN /hpf (5-10)
[2022-09-16 18:16] VITALS: BP 104/68; PULSE 62; RESP 18; O2SAT 97
[2022-09-16 20:17] VITALS: BP 136/65; PULSE 63; RESP 18; O2SAT 100
== END 2022-09-16 20:18 | disposition home or self-care (01) ==
PROVIDERS: Emergency Provider Student in an Organized Health Care Education/Training Program; PCP Internal Medicine; Visit Provider Student in an Organized Health Care Education/Training Program
DX: I11.0 Hypertensive heart disease with heart failure (principal); I50.20 Unspecified systolic (congestive) heart failure; I48.91 Unspecified atrial fibrillation; R68.84 Jaw pain; Z87.891 Personal history of nicotine dependence; E78.5 Hyperlipidemia, unspecified; I95.9 Hypotension, unspecified; Z79.01 Long term (current) use of anticoagulants
CPT/HCPCS: 71045; 80048; 81001; 83880; 84484; 85025; 93005; 99284; A4216

== ENCOUNTER → 2022-10-01 | Outpatient (CLI) | payer MEDICARE, OTHER, SELFPAY ==
--- NOTE | 2022-10-01 10:00 | ECHOCS_ITS ---
Reason For Study: PALPS Procedure This was a 2D Doppler, Color Flow transthoracic echocardiogram. The study was technically difficult. Contrast injection was performed. Exam performed in department. Left Ventricle Normal LV size. Left ventricular systolic function is normal. The estimated ejection fraction is 55 %. Stage 1 diastolic dysfunction. No regional wall motion abnormalities noted. Right Ventricle Normal RV size. Normal systolic function. Atria Normal left atrium. Normal right atrium. Mitral Valve Normal mitral valve. Tricuspid Valve The tricuspid valve is not well visualized. Aortic Valve The aortic valve is not well visualized. Great Vessels Normal aortic root. The pulmonary is not well visualized. Normal inferior vena cava. Pericardium/Pleural No pericardial effusion. Medication 22 gauge I.V. with prn adaptor inserted into right arm. Diluted definity 1ml given slow IV push to enhance endocardial definition. MMode/2D Measurements & Calculations Ao root diam: 3.4 cm LAV(MOD-bp): 65.7 ml LVAd ap4: 37.8 cm2 LAV(MOD-bp) Indexed: 30.9 ml/m2 LVLd ap4: 7.8 cm LAV(MOD-sp2): 70.6 ml EDV(MOD-sp4): 147.3 ml LAV(MOD-sp4): 53.5 ml EDV(sp4-el): 155.8 ml LVAs ap4: 21.9 cm2 LVLs ap4: 6.1 cm ESV(MOD-sp4): 62.8 ml ESV(sp4-el): 66.4 ml EF(MOD-sp4): 57.4 % EF(sp4-el): 57.4 % SV(MOD-sp4): 84.5 ml SV(sp4-el): 89.4 ml LA A4 area: 19.4 cm2 LA dimension(2D): 4.2 cm RA A4 area: 12.2 cm2 Time Measurements MV dec time: 0.39 sec Doppler Measurements & Calculations MV E max sonny: 49.5 cm/sec Lat Peak E' Sonny: 5.3 cm/sec Med Peak E' Sonny: 4.2 cm/sec MV A max sonny: 72.9 cm/sec E/E' lat: 9.3 E/E' med: 11.8 MV E/A: 0.68 MV V2 max: 84.3 cm/sec MV dec slope: 127.0 cm/sec2 Ao V2 max: 105.3 cm/sec MV max P.8 mmHg Ao max P.4 mmHg MV V2 mean: 50.7 cm/sec Ao V2 mean: 72.0 cm/sec MV mean P.1 mmHg Ao mean P.4 mmHg MV V2 VTI: 32.1 cm Ao V2 VTI: 26.3 cm AV (velocity ratio): 0.83 LV V1 max: 90.9 cm/sec LV V1 max P.3 mmHg LV V1 mean P.6 mmHg LV V1 mean: 58.5 cm/sec LV V1 VTI: 21.8 cm ECHO/Echo Complete W/ Contrast Interpretation Summary Normal LV size. Left ventricular systolic function is normal. The estimated ejection fraction is 55 %. Stage 1 diastolic dysfunction. Contrast injection was performed. Ordering Physician: Rhona Morrissey Referring Physician: Rhona Morrissey Performed By: Holly Motley RCS
== END | disposition home or self-care (01) ==
LOC: CVS 09:59
PROVIDERS: PCP Internal Medicine; Referring Provider Physician Assistant Medical; Visit Provider Physician Assistant Medical
DX: G47.33 Obstructive sleep apnea (adult) (pediatric) (principal)
CPT/HCPCS: 93306; Q9957; A4216; C8929

== ENCOUNTER 2022-10-27 10:08 | Day surgery (SDC) | payer MEDICARE, OTHER, SELFPAY ==
--- NOTE | 2022-10-20 10:29 | HP.PCM_ITS ---
History and Physical Date of Admission: 10/27/22 Susan Christianson is a 67 year old female who presents today for a cardiac catheterization. She has a history of atrial fibrillation, nonischemic cardiomyopathy, and hyperlipidemia. Patient was evaluated at [facility] in July 2021 for atrial fibrillation with RVR and reduced ejection fraction, 25%.? She was noted to be hypertensive. She was started on Coreg, Eliquis, Entresto, and Lasix. She underwent a repeat echocardiogram on 12/10/2021 that showed ejection fraction of 30% and moderate to severe global hypokinesis of left ventricle.? Left atrium was noted be moderately enlarged.? She underwent a stress test on 12/12/2021 that was negative for ischemia. Patient underwent cardioversion on 01/08/2022.? Follow-up EKG on 01/14/2022 showed sinus rhythm with ectopy.? She contacted our office on 01/23/2022 stating that she had returned to atrial fibrillation.? She has noted that she has had very labile blood pressure over the last few weeks. She also noted that she had one episode of where she felt like she might pass out.? She did not go to the ER at this time.? She called our office, we had thought about decreasing her Coreg.? However it was felt that with her elevated BP reading that we would not do this.? She did go to the ER, initial cardiac work up was negative.? She is concerned with the labile BP readings.? She has been keeping herself hydrated. Intake Vital Signs See EMR Allergies See EMR Medications See EMR [facility] Medical History? Arthritis Atrial fibrillation with rapid ventricular response (08/01/21) COVID Foot drop, right Former smoker Health care maintenance HFrEF (heart failure with reduced ejection fraction) History of kidney stones Hyperlipidemia Kidney stones Lumbar radiculopathy Migraines Osteoarthritis (arthritis due to wear and tear of joints) Right knee pain Surgical History? H/O total hip arthroplasty History of cardioversion (01/08/22) History of laminectomy (~2015) History of total left knee replacement Family History? Father CVA (cerebral vascular accident) Colon cancer Social History? Smoking Status:? Former smoker how long ago did patient quit smoking:? 7 years ago alcohol intake:? never substance use type:? does not use caffeine:? Yes Type: coffee Number of servings: 1 ROS Const Const: Negative for fatigue, weakness, fever(s) or headache(s) Eyes Eyes: Negative for blind spots, loss of peripheral vision or transient loss of vision ENT ENT: Negative for headache(s), dizziness, tinnitus, Nosebleed/epistaxis or balance problems Cardio Chest Pain: No Palpitations: No Edema: None Muscle aches with walking: None Resp Respiratory: Negative for SOB with activity, SOB at rest, SOB orthopnea\SOB lying down or Cough GI GI: Negative nausea, vomiting, heartburn or vomiting blood/hematemesis : Negative for hematuria Musc Musc: Negative for muscle aches/ myalgia, muscle weakness, joint pain or balance problems Neuro Neuro: Negative for dizziness, lightheadedness, near syncope, syncope, orthostatic symptoms, headache(s) or weakness Guilherme Hematologic/Lymphatic: Negative for easy bleeding Endo Endo: Negative for fatigue Cardiology Exam Const Appearance: cooperative, healthy appearing, comfortable and no acute distress Nutritional Appearance: well nourished and obese Orientation: alert, awake and oriented x3 Head Head: normal to inspection Ears: hearing grossly normal bilaterally Nose: external nose normal Face and Sinus: face symmetric Mouth: oral mucosae normal Eyes General: appearance normal, both eyes and all related structures Eyelids: eyelids normal EOM: EOM intact bilaterally Neck Neck: normal visual inspection and no JVD Carotids: normal carotid upstroke Chest Chest inspection: normal inspection of the chest, symmetric chest movement and normal respiratory effort; Negative cough Auscultation: Bilateral: Clear to Auscultation Cardio Rate: regular rate Rhythm: regular rhythm Heart sounds: S1 normal and S2 normal; Negative rub, gallop or murmur GI GI: normal to inspection and obese Neuro General: patient alert, patient awake, patient oriented x3 and CN's II-XI intact bilaterally Skin Skin: no rashes or lesions noted Extremities Pulses: Normal: Right Posterior Tibial Pulse, Left Posterior Tibial Pulse, Right Radial Pulse and Left Radial Pulse Lower Extremity Edema: None: Bilateral Psych Psychological: normal affect Supplemental Info Supplemental Information Echocardiogram 10/01/2022: Interpretation Summary Normal LV size. Left ventricular systolic function is normal. The estimated ejection fraction is 55 %. Stage 1 diastolic dysfunction. Contrast injection was performed. Echocardiogram 04/20/2022: Normal LV size. The estimated ejection fraction is 40 %. There is mild global hypokinesis of the left ventricle. There is mild to moderate mitral annular calcification. Compared to previous study, the left ventricular systolic function has improved.. Echocardiogram from 12/10/2021: Interpretation Summary Normal LV size. The estimated ejection fraction is 30 %. There is moderate to severe global hypokinesis of the left ventricle. The left atrium is moderately enlarged. Contrast injection was performed. Compared to previous study, the left ventricular systolic function is the same. Echocardiogram from 08/01/2021: Interpretation Summary Normal LV size. The estimated ejection fraction is 25 %. Moderately severe global left ventricular systolic dysfunction. There is moderate to severe global hypokinesis of the left ventricle. Pulmonary artery systolic pressure is 28 mmHg. Contrast injection was performed. Stress test from 12/12/2021: Conclusion: Normal pharmacologic myocardial perfusion stress test. Preserved ejection fraction. Assessment and Plan Assessment and Plan (1) Atrial fibrillation: ?Status:?Acute ?Comment: [facility] 01/08/2022, 02/11/2022; ?Plan: Patient has a history of atrial fibrillation, with patients erratic heartbeats, a 30-day event monitor was obtained to evaluate her heart rate and rhythm. Patient's 30- day event monitor demonstrated 7 seconds of Ventricular Tachycardia with a rate of 221. She was asked to stop Flecainide at that time. She will proceed with a cardiac catheterization to further assess her coronary arteries. Depending on results, further recommendations will be made. (2) HFrEF (heart failure with reduced ejection fraction): ?Status:?Chronic ?Plan: Patient has a history of heart failure with reduced ejection fraction. Her most recent echocardiogram from 10/01/2022 demonstrated ejection fraction of 55%, stage I diastolic dysfunction, and no regional wall motion abnormality noted. At this time, she will continue with her current medical therapy, along with monitoring for any concerning symptoms. (3) Ventricular Tachycardia: Patient's 30- day event monitor demonstrated 7 seconds of Ventricular Tachycardia with a rate of 221. She was asked to stop Flecainide at that time. She will proceed with a cardiac catheterization to further assess her coronary arteries. Depending on results, further recommendations will be made.
[2022-10-21 14:49] LABS: Absolute Lymphocyte Count 2.31 X10^3/uL (0.83-4.51); Absolute Neutrophil Count 4.5 X10^3/uL (2.0-7.7); Basophil# 0.04 X10^3/uL; Basophil% 0.5 % (0-1); Eosinophil# 0.16 X10^3/uL; Eosinophils% 2.1 % (0-5); Hematocrit 42.4 % (37-47); Hemoglobin 13.8 g/dL (12.0-15.0); Lymphocyte # 2.31 X10^3/ul (0.83-4.51); Mean Corp Hgb Conc 32.5 g/dL (32-36); Mean Corpuscular Hgb 30.8 pg (27.0-32.0); Mean Corpuscular Volume 94.6 fL (81-99); Mean Platelet Vol. 9.5 fl (6.2-12.0); Monocyte# 0.62 X10^3/uL; Monocyte% 8.1 % (0-10); NRBC Flagged by Analyzer 0 % (0-5); Neutrophil # 4.54 X10^3/uL (2.7-7.7); Platelet Count 227 K/mm3 (150-450); RBC Distribution Width CV 12.6 % (11.6-14.6); Red Blood Count 4.48 M/mm3 (4.2-5.4); White Blood Count 7.7 K/mm3 (4.4-11.0)
[2022-10-21 15:30] LABS: Anion Gap 7 (5-15); BUN 25 mg/dL (7-18); BUN/Creat Ratio 26.4 RATIO (10-20); Calcium,Total 8.9 mg/dL (8.5-10.1); Chloride 108 mmol/L (98-107); Creatinine, Serum 0.95 mg/dL (0.55-1.02); EST Glomerular Filtration Rate 62 mL/min (>60); Est Glom Filt Rate - Afr Amer 75 mL/min (>60); Glucose 111 mg/dL (74-106); Potassium 3.9 mmol/L (3.5-5.1); Sodium Level 140 mmol/L (136-145)
[2022-10-23 10:01] VITALS: BMI 35.2
--- NOTE | 2022-10-27 12:54 | CL.D_ITS ---
Patient Name: BEULAH MCPHERSON Study Date: 10/27/2022 Performing: Skip Rangel MD Ht: 67 inches 170.18 cm : 1955 Wt: 225 lbs 102.06 kg Age: 67 Gender: female BSA: 2.13 PROCEDURE(S) PERFORMED [id number])LHC/COR/LV CLINICAL PROFILE AND INDICATIONS Indications: Cardiac Arrythmia Heart Failure: None Stress/Imaging Stress/Image Study Performed: No CAD Presentations: Other: vtach CONCLUSIONS Non obstructive coronary arteries Normal LV size, wall motion,and systolic function RECOMMENDATIONS Medical therapy EPreferral for afib ablation DESCRIPTION OF PROCEDURE The patient arrived to the procedure lab. The risks and benefits of the procedure as well as a full description of our services here and current unavailability of surgical backup were fully explained to the patient and/or their significant other prior to the catheterization. The Timeout was completed, verifying the correct patient and procedure. The patient's procedural site was prepped and draped in the usual fashion. Local anesthetic was given subcutaneously to right radial region with Lidocaine 2%. Using a modified Seldinger technique, arterial access was obtained via the right radial artery, a 6Fr sheath was inserted. Left Coronary Artery selective angiography was performed in multiple views using a 5 Fr. 4.0 Spur catheter. Right Coronary Artery selective angiography was then performed in multiple views using a 5 Fr. 4.0 Spur catheter. Left Ventriculography was performed in ARCEO projection using a 5 Fr. Pigtail catheter. LV to AO pullback pressures were then recorded.The arterial sheath was pulled and a TR Band was applied for hemostasis CORONARY ANGIOGRAPHY DOMINANCE: Right Dominant LEFT HEART ASSESSMENT Left Ventricular Ejection Fraction: by LV Gram 55 % Normal LV wall motion Normal Left Ventricular systolic function LEFT MAIN: Angiographically normal LEFT ANTERIOR DESCENDING ARTERY: Mild luminal irregularities CIRCUMFLEX ARTERY: Mild luminal irregularities RIGHT CORONARY ARTERY: Mild luminal irregularities COMPLICATIONS No Complications PROCEDURE MEDICATIONS Versed 1 mg IV Fentanyl 50 mcg IV Versed 1 mg IV Oxygen: 2 L/min via nasal cannula Heparin given IA 10/27/2022 12:26:19 Verapamil 2.5mg, Ntg 100mcgs, 3000 units of Heparin given IA 10/27/2022 12:26:19 SUMMARY OF HEMODYNAMIC DATA Time AIR REST ECG 10:34:30 AO 123/79 (97) SA 12:30:37 LV 111/11, 12 12:36:07 LV 107/8, 11 12:36:13 LV 0/0, 3 12:36:54 LV 104/7, 26 12:37:01 LVp 102/14, 30 12:37:05 AOp 101/57 (74) 12:37:10 Signed By Skip Rangel MD On 10/27/2022 12:53:25 Skip Rangel MD
== END 2022-10-27 14:26 | disposition home or self-care (01) ==
LOC: CLSP 10:08
PROVIDERS: Nurse Practitioner Gerontology; PCP Internal Medicine; Referring Provider Internal Medicine Cardiovascular Disease; Visit Provider Internal Medicine Cardiovascular Disease
DX: I47.20 Ventricular tachycardia, unspecified (principal); I50.22 Chronic systolic (congestive) heart failure; I11.0 Hypertensive heart disease with heart failure; I48.91 Unspecified atrial fibrillation; Z87.891 Personal history of nicotine dependence; E78.5 Hyperlipidemia, unspecified; Z79.01 Long term (current) use of anticoagulants
CPT/HCPCS: 36415; 80048; 85025; 93458; 99152; J7040; C1769; C1894; Q9967

== ENCOUNTER 2022-11-08 15:59 | Emergency (ER) | payer MEDICARE, OTHER, SELFPAY ==
[2022-11-08 16:01] VITALS: BP 133/76; PULSE 79; RESP 19; TEMP 36.6; O2SAT 100
[2022-11-08 16:15] VITALS: BMI 34.5
--- NOTE | 2022-11-08 16:29 | EKG12_ITS ---
Test Reason : AFIB Blood Pressure : / mmHG Vent. Rate : 080 BPM Atrial Rate : 000 BPM P-R Int : 000 ms QRS Dur : 086 ms QT Int : 352 ms P-R-T Axes : 000 018 013 degrees QTc Int : 405 ms Atrial fibrillation Nonspecific ST abnormality Abnormal ECG Confirmed by NAYELI BARRAZA, DRISS ([id number]), editorial assistant JAILENE KEARNEY ([id number]) on 11/10/2022 7:50:30 AM Referred By: JESSE Confirmed By:YENY TYLER MD
--- NOTE | 2022-11-08 16:30 | EX.ED.DYSGE1 ---
HPI History of Present Illness Chief Complaint: Palpitations Detail of Chief Complaint: Palpitations Informant: patient Narrative Narrative: Patient presents to the emergency department with complaint of palpitations. Patient states that she has history of A-fib and that after scientologist today she had a presyncopal episode where she felt like she might pass out. Patient then felt like she went into a sinus rhythm from A-fib. Patient did not pass out. Patient then noted that her heart rate was anywhere from 55-1 20 and she became concerned because it was so variable. Patient tells me that she had a heart cath few weeks ago that showed she had normal plumbing but had electrical circuit issues and she was recommended to [facility] for an ablation. Patient tells me that she used to be on flecainide but had while wearing a Holter monitor run of V. tach so she was taken off the flecainide. Patient currently anticoagulated with apixaban and also takes carvedilol. She denies any chest pain. She denies shortness of breath. She has not been ill recently. [facility] Medical History Arthritis Atrial fibrillation with rapid ventricular response (08/01/21) COVID Foot drop, right Former smoker Health care maintenance HFrEF (heart failure with reduced ejection fraction) History of kidney stones Hyperlipidemia Kidney stones Lumbar radiculopathy Migraines Osteoarthritis (arthritis due to wear and tear of joints) Right knee pain Home Medications furosemide 40 mg tablet 40 mg PO .PRN PRN edema, weight gain, SOB 08/19/21 [History Last Taken Unknown] potassium chloride 20 mEq tablet,extended release(part/cryst) 20 meq PO .PRN PRN When taking diuretics #30 tabs 08/19/21 [Rx Last Taken Unknown] Handicap Placard #1 ea 09/01/21 [Rx Last Taken Unknown] miconazole nitrate 2 % topical powder 1 applic topical BID PRN skin 02/03/22 [History Last Taken Unknown] acetaminophen 500 mg tablet 1,000 mg PO TID pain 03/18/22 [History Last Taken Unknown] apixaban 5 mg tablet (Eliquis) 5 mg PO BID #60 tabs 08/26/22 [Rx Last Taken 10/23/22] sacubitril 24 mg-valsartan 26 mg tablet (Entresto) 1 tab PO BID #60 tabs 08/26/22 [Rx Last Taken 10/27/22] carvedilol 25 mg tablet 25 mg PO BID #60 tabs 10/27/22 [Rx Last Taken Unknown] Allergy/AdvReac Type Severity Reaction Status Date / Time piperacillin [From Zosyn] Allergy Rash Verified 11/08/22 16:04 tazobactam [From Zosyn] Allergy Rash Verified 11/08/22 16:04 amiodarone AdvReac Intermediate Lightheaded, Verified 11/08/22 16:04 feeling of impending doom Family History Father CVA (cerebral vascular accident) Colon cancer Surgical History H/O total hip arthroplasty History of cardioversion (01/08/22) History of laminectomy (~2015) History of total left knee replacement Social History Smoking Status: Former smoker how long ago did patient quit smokin years ago alcohol intake: never substance use type: does not use caffeine: Yes Type: coffee Number of servings: 1 ROS ROS ED Review of Systems ROS Unobtainable: other Constitutional Constitutional ED: Reports lethargy; Denies chills, fever(s), sweats or weight loss Eyes Eyes: Denies blurry vision, change in vision or diplopia ENT ENT ED: Denies rhinorrhea or sore throat Cardiovascular Cardiovascular: Reports palpitations and racing heartbeat; Denies chest pain or orthopnea Respiratory/Chest Respiratory/Chest: Denies cough, dyspnea, dyspnea on exertion, orthopnea or sputum Gastrointestinal Gastrointestinal: Denies abdominal pain, diarrhea, nausea or vomiting Genitourinary Genitourinary ED: Denies dysuria, hematuria or urinary frequency Musculoskeletal Musculoskeletal: Denies arthralgias, back pain, myalgias or neck pain Integumentary Denies abscess, Abrasions or rash Neurologic Neurologic: Denies headache(s) or weakness Psychiatric Psychiatric: Denies anxiety, depression or suicidal thoughts Endocrine Endocrinology: Denies polydipsia, polyphagia or polyuria Hematologic/Lymphatic Hematologic/Lymphatic: Denies easy bleeding, easy bruising or lymphadenopathy Allergic/Immunologic Allergic/Immunologic ED: Denies mouth swelling, tongue swelling or urticaria EXAM Physical Exam Const Vital Signs: 11/08/22 16:01 11/08/22 16:13 Temperature 97.9 F Temperature Source Temporal Pulse Rate 79 Respiratory Rate 19 H Respiratory Effort Normal Non-Labored Blood Pressure 133/76 H Blood Pressure Mean 95 Pulse Ox 100 Oxygen Delivery Method Room Air Positive well nourished and well developed General Appearance ED: well developed and NAD HEENT Reports TM's clear and moist mucous membranes normocephalic and atraumatic; Negative for trauma or tenderness Tympanic Membrane ED: Yes TM's clear Eyes PERRL and EOMs intact bilaterally General Eye ED: Negative for pale conjunctiva or scleral icterus Neck no lymphadenopathy, supple and no JVD General: Negative for tenderness Chest Wall inspection of chest normal and palpation of chest normal Chest: Negative for tenderness Resp normal respiratory effort and clear to auscultation bilaterally Effort and Inspection: Negative for respiratory distress or pain with movement Auscultation: Negative for rhonchi, wheezes or diminished lung sounds Cardio S1 normal heart sound, S2 normal heart sound and no murmurs Rhythm: abnormal rhythm Peripheral Pulses: pulses 2+ throughout GI normal to inspection, nondistended, normoactive bowel sounds, soft to palpation, non-tender, non-distended and no masses Back/Spine no CVA tenderness and no thoracic nor lumbar tenderness Extremity normal to inspection General Extremety ED: Negative for edema General Extremity: Negative for edema Neuro oriented x3, CN's II-XII intact bilaterally, no sensory deficits noted and gait normal Sensorium / Orientation: awake, alert, oriented to person, oriented to place and oriented to time Motor Exam: strength 5/5 throughout and strength abnormal Psych mental status grossly normal Skin no rashes or lesions noted and no wounds MDM MDM MDM Narrative Medical decision making narrative: Patient presents with concern that she might go into A-fib RVR and then at 1 point she was thought she went into a sinus rhythm and felt presyncopal. Patient states last week she had an episode of RVR to 170 bpm and she was concerned about that happening again so she comes to the ER for evaluation. She denies any chest pain. Patient had an EKG obtained on arrival that showed atrial fibrillation with a rate of [address] changes. CBC with differential and chemistries unremarkable. Troponin was normal. Patient's remained in the 80s as far as her heart rate. Patient is anticoagulated. I do not feel any other work-up or treatment is indicated at this time. She is comfortable going home. Lab Data Attestation: I reviewed the patient's lab results. Labs: Laboratory Results - last 24 hr 11/08/22 11/08/22 16:12 16:12 WBC 8.6 RBC 4.57 Hgb 14.1 Hct 43.6 MCV 95.4 MCH 30.9 MCHC 32.3 RDW Std Deviation 45.1 H RDW Coeff of Kurtis 12.9 Plt Count 260 MPV 9.2 Immature Gran % (Auto) 0.400 Neut % (Auto) 53.1 Lymph % (Auto) 35.8 [place]lette % (Auto) 7.8 Eos % (Auto) 2.3 Baso % (Auto) 0.6 Absolute Neuts (auto) 4.6 Absolute Lymphs (auto) 3.07 Nucleated RBC % 0 Sodium 141 Potassium 4.3 Chloride 108 H Carbon Dioxide 28.0 Anion Gap 5 BUN 20 H Creatinine 0.98 Estim Creat Clear Calc 52.69 Est GFR (MDRD) Af Amer 73 Est GFR (MDRD) Non-Af 60 BUN/Creatinine Ratio 20.5 H Glucose 103 Calcium 9.1 Troponin I High Sens 7 EKG Initial EKG: Attestation: I personally reviewed and interpreted this EKG as follows: Comments: Atrial fibrillation with ventricular rate of [address] changes Discharge Plan Triage Chief Complaint: Palpitations ED Provider: Ansley Ponce Dx/Rx/DC Orders Clinical Impression: Atrial fibrillation, Heart palpitations Instructions: ED AFIB, ED Palpitations Prescriptions: No Action furosemide 40 mg tablet 40 mg PO .PRN PRN (Reason: edema, weight gain, SOB) potassium chloride 20 mEq tablet,ER particles/crystals 20 meq PO .PRN PRN (Reason: When taking diuretics) Qty: 30 0RF miconazole nitrate 2 % powder 1 applic topical BID PRN (Reason: skin) (DME) Handicap Placard See Rx Instructions .ROUTE .MEDSUPPLY Qty: 1 0RF Rx Instructions: As directed, length of time 3 years acetaminophen 500 mg tablet 1,000 mg PO TID Entresto 24-26 mg tablet 1 tab PO BID Qty: 60 11RF Eliquis 5 mg tablet 5 mg PO BID Qty: 60 11RF carvedilol 25 mg tablet 25 mg PO BID Qty: 60 3RF Rx Instructions: must administer with a meal/food Primary Care Provider: Yesi Clinton Referrals: Skip Rangel MD [Med Staff - Active Staff] - As Needed Yesi Clinton MD [Primary Care Provider] - Disposition Disposition: Home, Self Care
[2022-11-08 16:41] LABS: Absolute Lymphocyte Count 3.07 X10^3/uL (0.83-4.51); Absolute Neutrophil Count 4.6 X10^3/uL (2.0-7.7); Basophil# 0.05 X10^3/uL; Basophil% 0.6 % (0-1); Eosinophils% 2.3 % (0-5); Hematocrit 43.6 % (37-47); Hemoglobin 14.1 g/dL (12.0-15.0); Lymphocyte # 3.07 X10^3/ul (0.83-4.51); Lymphocyte % 35.8 % (19-41); Mean Corp Hgb Conc 32.3 g/dL (32-36); Mean Corpuscular Hgb 30.9 pg (27.0-32.0); Mean Corpuscular Volume 95.4 fL (81-99); Mean Platelet Vol. 9.2 fl (6.2-12.0); Monocyte# 0.67 X10^3/uL; Monocyte% 7.8 % (0-10); NRBC Flagged by Analyzer 0 % (0-5); Neutrophil # 4.55 X10^3/uL (2.7-7.7); Neutrophil % 53.1 % (47-70); Platelet Count 260 K/mm3 (150-450); RBC Distribution Width CV 12.9 % (11.6-14.6); RBC Distribution Width SD 45.1 fl (35.1-43.9); Red Blood Count 4.57 M/mm3 (4.2-5.4); White Blood Count 8.6 K/mm3 (4.4-11.0)
[2022-11-08] MEDS: 0.9% Normal Saline 1,000 ML 150 ML IV (16:44)
[2022-11-08 16:59] LABS: Anion Gap 5 (5-15); BUN 20 mg/dL (7-18); BUN/Creat Ratio 20.5 RATIO (10-20); Calcium,Total 9.1 mg/dL (8.5-10.1); Chloride 108 mmol/L (98-107); Creatinine, Serum 0.98 mg/dL (0.55-1.02); EST Glomerular Filtration Rate 60 mL/min (>60); Est Glom Filt Rate - Afr Amer 73 mL/min (>60); Estimated Creatinine Clearance 52.69 ml/min; Glucose 103 mg/dL (74-106); Potassium 4.3 mmol/L (3.5-5.1); Sodium Level 141 mmol/L (136-145); Troponin-I HS 7 pg/mL (3.0-54.0)
[2022-11-08 17:36] VITALS: BP 113/69; PULSE 79; RESP 18; O2SAT 100
== END 2022-11-08 17:36 | disposition home or self-care (01) ==
PROVIDERS: Emergency Provider Emergency Medicine; PCP Internal Medicine; Visit Provider Emergency Medicine
DX: I48.91 Unspecified atrial fibrillation (principal); I50.22 Chronic systolic (congestive) heart failure; E78.5 Hyperlipidemia, unspecified; Z87.891 Personal history of nicotine dependence
CPT/HCPCS: 36415; 80048; 84484; 85025; 93005; 96360; 99285; A4216

== ENCOUNTER 2023-02-25 15:49 | Emergency (ER) | payer MEDICARE, OTHER, SELFPAY ==
[2023-02-25 15:51] VITALS: BP 136/77; PULSE 84; RESP 18; TEMP 36.3; O2SAT 99
--- NOTE | 2023-02-25 16:10 | RAD_ITS ---
INDICATION: Stroke EXAMINATION/TECHNIQUE: X-RAY - XR Chest 1 View COMPARISON: 09/16/2022 FINDINGS: LINES/DEVICES: None. LUNGS: No consolidation, edema or effusion. No pneumothorax. MEDIASTINUM AND CARDIOVASCULAR STRUCTURES: Cardiac silhouette not enlarged. Central airways and mediastinal contour are unremarkable. BONES AND SOFT TISSUES: No acute changes. RAD/Chest 1 View (Portable) IMPRESSION: No radiographic evidence of acute cardiopulmonary disease. Electronically Signed: Ned Reed MD at 16:39 EDT ,
--- NOTE | 2023-02-25 16:56 | EDS_ITS ---
HPI History of Present Illness Chief Complaint: Dizziness Informant: patient Onset/Context/Timing Onset: Today Context: Sudden Onset Timing: Intermittent and Lasts (Several seconds) Quality: Pounding Location: Chest Worsened by: Nothing Relieved by: Nothing Narrative Narrative: Patient presents with a dizzy episode that occurred today. Patient states it lasted several seconds. Patient states that it felt similar to prior episodes of ventricular tachycardia. Patient states her heart rate was between 110 and 140 when this occurred. Patient states she felt a pounding in her chest. Patient states it came on suddenly and then resolved suddenly. Patient admits to some shortness of breath with this. Patient denies any syncope. Patient states that she called Dr. Rangel's office and was referred to the emergency department. [facility] Medical History Arthritis Atrial fibrillation with rapid ventricular response (08/01/21) COVID Foot drop, right Former smoker Health care maintenance HFrEF (heart failure with reduced ejection fraction) History of kidney stones Hyperlipidemia Kidney stones Lumbar radiculopathy Migraines Osteoarthritis (arthritis due to wear and tear of joints) Right knee pain Home Medications potassium chloride 20 mEq tablet,extended release(part/cryst) 20 meq PO .PRN PRN When taking diuretics #30 tabs 08/19/21 [Rx Last Taken Unknown] Handicap Placard #1 ea 09/01/21 [Rx Last Taken Unknown] miconazole nitrate 2 % topical powder 1 applic topical BID PRN skin 02/03/22 [History Last Taken Unknown] acetaminophen 500 mg tablet 1,000 mg PO TID pain 03/18/22 [History Last Taken Unknown] apixaban 5 mg tablet (Eliquis) 5 mg PO BID #60 tabs 08/26/22 [Rx Last Taken 10/23/22] metoprolol tartrate 50 mg tablet 50 mg PO BID #180 tabs 11/19/22 [Rx Last Taken Unknown] furosemide 40 mg tablet 40 mg PO .PRN PRN edema, weight gain, SOB #30 tabs 11/30/22 [Rx Last Taken Unknown] sacubitril 24 mg-valsartan 26 mg tablet (Entresto) 1 tab PO BID 11/30/22 [History Last Taken Unknown] Allergy/AdvReac Type Severity Reaction Status Date / Time piperacillin [From Zosyn] Allergy Rash Verified 02/25/23 15:51 tazobactam [From Zosyn] Allergy Rash Verified 02/25/23 15:51 amiodarone AdvReac Intermediate Lightheaded, Verified 02/25/23 15:51 feeling of impending doom diltiazem AdvReac Mild edema Verified 02/25/23 15:51 Family History Father CVA (cerebral vascular accident) Colon cancer Surgical History H/O total hip arthroplasty History of cardioversion (01/08/22) History of laminectomy (~2015) History of total left knee replacement Hx of cardiac catheterization (~10/27/22) Social History Smoking Status: Former smoker how long ago did patient quit smokin years ago alcohol intake: never substance use type: does not use caffeine: Yes Type: coffee Number of servings: 1 ROS ROS ED Constitutional Constitutional ED: Denies chills or fever(s) Eyes Eyes: Denies blurry vision or change in vision ENT ENT ED: Denies rhinorrhea or sore throat Cardiovascular Cardiovascular: Reports chest pain and palpitations Respiratory/Chest Respiratory/Chest: Reports dyspnea; Denies cough Gastrointestinal Gastrointestinal: Denies abdominal pain, nausea or vomiting Genitourinary Genitourinary ED: Denies dysuria or hematuria Musculoskeletal Musculoskeletal: Denies back pain or neck pain Integumentary Denies abscess or rash Neurologic Neurologic: Denies headache(s) or weakness Allergic/Immunologic Allergic/Immunologic ED: Denies mouth swelling or urticaria EXAM Physical Exam Const Vital Signs: 02/25/23 15:51 02/25/23 17:18 02/25/23 17:18 Temperature 97.3 F L Temperature Source Temporal Pulse Rate 84 Respiratory Rate 18 Respiratory Effort Normal Non-Labored Blood Pressure 136/77 H Blood Pressure Mean 96 Pulse Ox 99 Oxygen Delivery Method Room Air Room Air 02/25/23 18:01 Temperature Temperature Source Pulse Rate 89 Respiratory Rate 17 Respiratory Effort Blood Pressure Blood Pressure Mean Pulse Ox 97 Oxygen Delivery Method Room Air Positive well nourished, well developed and obese General Appearance ED: well developed and NAD Nutritional Appearance: obese HEENT Reports moist mucous membranes Neck supple and no JVD Resp normal respiratory effort and clear to auscultation bilaterally Cardio regular rate and regular rhythm GI normal to inspection, nondistended, normoactive bowel sounds and non-tender Palpation: soft Extremity normal to inspection Neuro oriented x3, CN's II-XII intact bilaterally and no sensory deficits noted Sensorium / Orientation: alert Motor Exam: strength 5/5 throughout Psych mental status grossly normal Skin no rashes or lesions noted MDM MDM MDM Narrative Medical decision making narrative: Differential diagnosis includes cardiac dysrhythmia, cardiac ischemia, electrolyte abnormality, acute kidney injury, dehydration, pneumonia, and pneumothorax. EKG will be obtained to assess for cardiac dysrhythmia and cardiac ischemia. CBC will be obtained to assess for leukocytosis and anemia. PT with INR and PTT will be obtained to assess for coagulopathy. Chest x-ray will be obtained to assess for pneumonia and congestive heart failure. High-sensitivity troponin will be obtained to assess for cardiac ischemia. Lab Data Attestation: I reviewed the patient's lab results. Lab results narrative: With aCBC was reviewed and was within normal limits. Normal PTT were reviewed. Pro time was 15.2 and INR is 1.2. PTT was 35.1. Basic metabolic profile was reviewed. BUN was 24 and creatinine was 1.12. Electrolytes were within normal limits. Anion gap was normal. High-sensitivity troponin was reviewed and was normal at 9. Labs: Laboratory Results - last 24 hr 02/25/23 17:05 WBC 7.6 RBC 5.00 Hgb 15.1 H Hct 46.5 MCV 93.0 MCH 30.2 MCHC 32.5 RDW Std Deviation 44.3 H RDW Coeff of Kurtis 13.0 Plt Count 220 MPV 9.4 Immature Gran % (Auto) 0.100 Neut % (Auto) 59.9 Lymph % (Auto) 30.2 Bacon % (Auto) 7.9 Eos % (Auto) 1.4 Baso % (Auto) 0.5 Absolute Neuts (auto) 4.5 Absolute Lymphs (auto) 2.29 Nucleated RBC % 0 PT 15.2 H INR 1.2 APTT 35.1 Sodium 140 Potassium 4.1 Chloride 109 H Carbon Dioxide 27.0 Anion Gap 4 L BUN 24 H Creatinine 1.12 H Est GFR (MDRD) Af Amer 62 Est GFR (MDRD) Non-Af 51 L BUN/Creatinine Ratio 21.4 H Glucose 102 Calcium 8.9 Troponin I High Sens 9 Radiography Chest X-Ray - ED: 1 View, Read by ED Physician, Read by Radiologist and No Acute Disease Diagnostic Testing: Clinical Impression(s) from Imaging Studies Chest X-Ray 02/25/23 16:10 IMPRESSION: No radiographic evidence of acute cardiopulmonary disease. Electronically Signed: Ned eRed MD at 16:39 EDT , Portable 1 view chest x-ray was obtained. On my independent interpretation, lung adame are clear. There is normal cardiac silhouette. Bony thorax is normal. There is no acute process noted. Radiologist also interpreted the x- ray and agrees. EKG Initial EKG: Attestation: I personally reviewed and interpreted this EKG as follows: Interpretation: Atrial Flutter (110) and Non-Specific ST Changes Comments: EKG was obtained. On my independent interpretation, it shows atrial flutter with a rate of 110. QRS interval was within normal limits. QTc interval was normal. [place] was normal. There are nonspecific ST-T wave changes noted. Prior EKG tracings: available for review Prior: Unchanged (01/15/2023) Treatment and Re-Evaluation :: Patient was placed on clinical research monitor. Patient had no episodes of ventricular tachycardia here in the emergency department. Patient remained in atrial fibrillation with a rate in the 90s. Patient was advised of her findings. 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 Patient was instructed to contact [facility] to see if she can get her ablation any sooner. Patient was instructed return if worse in any way. Patient understood and was agreeable with the plan. All questions were answered. Discharge Plan Triage Chief Complaint: Dizziness ED Provider: Doug Barone Dx/Rx/DC Orders Clinical Impression: Palpitations, Atrial fibrillation, Near syncope Instructions: ED AFIB, ED Dizziness, Uncertain Cause Prescriptions: No Action potassium chloride 20 mEq tablet,ER particles/crystals 20 meq PO .PRN PRN (Reason: When taking diuretics) Qty: 30 0RF miconazole nitrate 2 % powder 1 applic topical BID PRN (Reason: skin) (DME) Handicap Placard See Rx Instructions .ROUTE .MEDSUPPLY Qty: 1 0RF Rx Instructions: As directed, length of time 3 years acetaminophen 500 mg tablet 1,000 mg PO TID metoprolol tartrate 50 mg tablet 50 mg PO BID Qty: 180 1RF Entresto 24-26 mg tablet 1 tab PO BID furosemide 40 mg tablet 40 mg PO .PRN PRN (Reason: edema, weight gain, SOB) Qty: 30 11RF Eliquis 5 mg tablet 5 mg PO BID Qty: 60 11RF Primary Care Provider: Yesi Clinton Referrals: Yesi Clinton MD [Primary Care Provider] - 3-5 Days Ashkan Remy NP, OFFICE EQUIPMENT TECHNICIAN-C [Med Staff - Adv Practice Prof] - Keep [facility] appointment Disposition Disposition: Home, Self Care
[2023-02-25 17:17] LABS: Absolute Lymphocyte Count 2.29 X10^3/uL (0.83-4.51); Absolute Neutrophil Count 4.5 X10^3/uL (2.0-7.7); Basophil# 0.04 X10^3/uL; Basophil% 0.5 % (0-1); Eosinophil# 0.11 X10^3/uL; Eosinophils% 1.4 % (0-5); Hematocrit 46.5 % (37-47); Hemoglobin 15.1 g/dL (12.0-15.0); Lymphocyte # 2.29 X10^3/ul (0.83-4.51); Lymphocyte % 30.2 % (19-41); Mean Corp Hgb Conc 32.5 g/dL (32-36); Mean Corpuscular Hgb 30.2 pg (27.0-32.0); Mean Platelet Vol. 9.4 fl (6.2-12.0); Monocyte% 7.9 % (0-10); NRBC Flagged by Analyzer 0 % (0-5); Neutrophil # 4.54 X10^3/uL (2.7-7.7); Neutrophil % 59.9 % (47-70); Platelet Count 220 K/mm3 (150-450); RBC Distribution Width SD 44.3 fl (35.1-43.9); White Blood Count 7.6 K/mm3 (4.4-11.0)
[2023-02-25 17:25] LABS: International Normalized Ratio 1.2; Prothrombin Time (Protime)PT. 15.2 SECONDS (11.7-14.9)
[2023-02-25 17:26] LABS: Partial Thromboplast Time 35.1 Seconds (24.1-36.2)
[2023-02-25 17:38] LABS: Anion Gap 4 (5-15); BUN 24 mg/dL (7-18); BUN/Creat Ratio 21.4 RATIO (10-20); Calcium,Total 8.9 mg/dL (8.5-10.1); Chloride 109 mmol/L (98-107); Creatinine, Serum 1.12 mg/dL (0.55-1.02); EST Glomerular Filtration Rate 51 mL/min (>60); Est Glom Filt Rate - Afr Amer 62 mL/min (>60); Glucose 102 mg/dL (74-106); Potassium 4.1 mmol/L (3.5-5.1); Sodium Level 140 mmol/L (136-145); Troponin-I HS 9 pg/mL (3.0-54.0)
[2023-02-25 18:01] VITALS: PULSE 89; RESP 17; O2SAT 97
== END 2023-02-25 19:49 | disposition home or self-care (01) ==
PROVIDERS: Emergency Provider Emergency Medicine; PCP Internal Medicine; Visit Provider Emergency Medicine
DX: R00.2 Palpitations (principal); I50.22 Chronic systolic (congestive) heart failure; I48.91 Unspecified atrial fibrillation; R42 Dizziness and giddiness; E78.5 Hyperlipidemia, unspecified; E66.9 Obesity, unspecified; Z79.01 Long term (current) use of anticoagulants; Z79.899 Other long term (current) drug therapy; Z87.891 Personal history of nicotine dependence
CPT/HCPCS: 71045; 80048; 84484; 85025; 85610; 85730; 93005; 99285

== ENCOUNTER → 2023-03-11 | Outpatient (CLI) | payer MEDICARE, OTHER, SELFPAY ==
--- NOTE | 2023-03-11 10:02 | ECHOLC_ITS ---
Reason For Study: Afib/Flutter, Evaluate EF Procedure This was a limited 2D transthoracic echocardiogram. The study was technically difficult. Contrast injection was performed. Exam performed in department. Left Ventricle Normal LV size. Left ventricular systolic function is normal. The left ventricular ejection fraction is 45 %. There is mild global hypokinesis of the left ventricle. Right Ventricle Normal RV size. Normal systolic function. Atria The left atrium is mildly enlarged. Normal right atrium. Mitral Valve There is mild mitral annular calcification. Great Vessels Normal aortic root. The pulmonary artery is normal size. Pericardium/Pleural No pericardial effusion. Medication 22 gauge I.V. with prn adaptor inserted into right arm. Diluted definity 3ml given slow IV push to enhance endocardial definition. MMode/2D Measurements & Calculations LVIDd: 5.1 cm IVSd: 1.1 cm Ao root diam: 3.4 cm LVIDs: 4.5 cm LVPWd: 0.99 cm LA dimension: 4.6 cm FS: 12.7 % LAV(MOD-bp): 79.9 ml LVAd ap4: 24.7 cm2 LVAd ap2: 22.7 cm2 LAV(MOD-bp) Indexed: 36.7 ml/m2 LVLd ap4: 6.6 cm LVLd ap2: 5.6 cm LAV(MOD-sp2): 84.0 ml EDV(MOD-sp4): 75.2 ml EDV(MOD-sp2): 73.9 ml LAV(MOD-sp4): 72.4 ml EDV(sp4-el): 78.1 ml EDV(sp2-el): 77.9 ml LVAs ap4: 19.8 cm2 LVAs ap2: 18.9 cm2 LVLs ap4: 5.9 cm LVLs ap2: 5.5 cm ESV(MOD-sp4): 54.1 ml ESV(MOD-sp2): 51.8 ml ESV(sp4-el): 56.3 ml ESV(sp2-el): 54.7 ml EF(MOD-sp4): 28.0 % EF(MOD-sp2): 30.0 % EF(sp4-el): 27.9 % SV(MOD-sp4): 21.1 ml SV(MOD-sp2): 22.1 ml SV(sp4-el): 21.8 ml LA A4 area: 22.8 cm2 Doppler Measurements & Calculations MV E max tayla: 81.7 cm/sec ECHO/Echo Limited w/Contrast Interpretation Summary Normal LV size. Left ventricular systolic function is normal. There is mild global hypokinesis of the left ventricle. The left atrium is mildly enlarged. There is mild mitral annular calcification. The left ventricular ejection fraction is 45 %. Ordering Physician: Ashkan Remy Referring Physician: Yesi Clinton Performed By: Gallo Mckinley RCS
== END | disposition home or self-care (01) ==
LOC: CVS 10:02
PROVIDERS: PCP Internal Medicine; Referring Provider Nurse Practitioner Family; Visit Provider Nurse Practitioner Family
DX: I48.0 Paroxysmal atrial fibrillation (principal)
CPT/HCPCS: 93308; Q9957; A4216; C8924

== ENCOUNTER → 2023-03-24 | Outpatient (CLI) | payer MEDICARE, OTHER, SELFPAY ==
--- NOTE | 2023-03-24 15:16 | RAD_ITS ---
STUDY: X-RAY - LEFT SHOULDER REASON FOR EXAM: Female, 67 years old. Left shoulder lump. TECHNIQUE: 4 view(s) of the shoulder. COMPARISON: None. FINDINGS: Osteopenia. Moderate arthrosis of the glenohumeral joint. Moderate arthrosis of the AC joint. Sclerosis and cystic changes in the humeral head. Healed left upper rib fractures. Normal soft tissues. Normal visualized pulmonary apex. RAD/Shoulder min 2 Views IMPRESSION: Osteopenia with osteoarthritic changes as described. No acute abnormality or erosive changes. Electronically Signed: Horacio Thomas MD at 15:47 EDT ,
== END | disposition home or self-care (01) ==
LOC: MTRAD 15:15
PROVIDERS: PCP Internal Medicine; Referring Provider Physician Assistant Surgical; Visit Provider Physician Assistant Surgical
DX: M25.512 Pain in left shoulder (principal)
CPT/HCPCS: 73030

== ENCOUNTER → 2023-03-26 | Outpatient (CLI) | payer MEDICARE, OTHER, SELFPAY ==
--- NOTE | 2023-03-26 11:00 | US_ITS ---
STUDY: SUPERFICIAL ULTRASOUND - LEFT SHOULDER. REASON FOR EXAM: Female, 67 years old. LEFT SHOULDER SWELLING AND PALPABLE LUMP TECHNIQUE: A superficial ultrasound was performed with real-time and static ortega-scale imaging. COMPARISON: None. FINDINGS: The palpable abnormality corresponds to a 3.1 cm x 3.4 cm x 1.9 cm complex solid and cystic mass. If the patient has a history of trauma, this may represent resolving hematoma. Tissue sampling is recommended. US/Ext Non Vasc Limited/Soft Tiss IMPRESSION: The palpable abnormality corresponds to a 3.1 cm x 3.4 cm x 1.9; complex solid and cystic mass. Tissue diagnosis is recommended. Electronically Signed: Brooks Medina MD at 14:45 EDT ,
--- NOTE | 2023-03-26 11:16 | RAD_ITS ---
INDICATION: Cervical Radiculopathy EXAMINATION/TECHNIQUE: X-RAY - XR Spine Cervical 4 or 5 Views COMPARISON: FINDINGS: Moderate spondylosis C3-C5 severe spondylosis C5-T1. Severe loss of disc space height C5-T1, moderate loss of disc space height C3-C5. LUNG APICES: Clear. RAD/Cerv Spine 2 or 3 Views IMPRESSION: Degenerative changes as above. Electronically Signed: Jamil Smallwood MD at 9:48 EDT ,
== END | disposition home or self-care (01) ==
LOC: US 10:59
PROVIDERS: PCP Internal Medicine; Referring Provider Internal Medicine; Visit Provider Internal Medicine
DX: M54.12 Radiculopathy, cervical region (principal); R22.9 Localized swelling, mass and lump, unspecified
CPT/HCPCS: 72040; 76882

== ENCOUNTER → 2023-04-06 | Outpatient (CLI) | payer MEDICARE, OTHER, SELFPAY ==
--- NOTE | 2023-04-06 09:42 | ADUL_ITS ---
Reason For Study: artery injury Right Velocities [employer]UD[employer] PROFESSOR measures .77 x .78 cm. [employer] PROFESSOR 116.1 cm/s. CFV is compressible with spontaneous and phasic flow. SFA measures .41 x .61 cm. SFA 142.5 cm/s. Pseudo noted off of the SFA measuring .87 x 1.1 cm. Hematoma noted measuring 2.41 x 4.96 cm. Prelim called to Ashkan Remy. VL/US Art Duplex Unilat Lower Ext Interpretation Summary Positive for pseudoaneurysm originating from proximal SFA with adjacent hematom a Ordering Physician: Ashkan Remy Referring Physician: Ashkan Remy Performed By: Adalberto Montiel, RVT
== END | disposition home or self-care (01) ==
LOC: CVS 09:42
PROVIDERS: PCP Internal Medicine; Referring Provider Nurse Practitioner Family; Visit Provider Nurse Practitioner Family
DX: R09.89 Other specified symptoms and signs involving the circulatory and respiratory systems (principal); I72.9 Aneurysm of unspecified site; S75.009A Unspecified injury of femoral artery, unspecified leg, initial encounter; T81.718A Complication of other artery following a procedure, not elsewhere classified, initial encounter; Z98.890 Other specified postprocedural states
CPT/HCPCS: 93926

== ENCOUNTER → 2023-05-04 | Outpatient (CLI) | payer MEDICARE, OTHER, SELFPAY ==
--- NOTE | 2023-05-04 09:47 | ADUL_ITS ---
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 TEMPERING KILN TENDER 122.7 cm/s. CFV is compressible with spontaneous and phasic flow. SFA measures .45 x .55 cm. SFA 107.0 cm/s. Pseudo noted off of the SFA measuring .97 x 1.48 cm. Appears to be 2 seperate necks feeding the pseudoaneurysm. Hematoma noted measuring 2.22 x 4.65 cm. VL/US Art Duplex Unilat Lower Ext Interpretation Summary Right SFA pseudoaneurysm with increase in size from 1.1 cm to 1.48 cm. Surrounding hematoma decreased in size Ordering Physician: Africa Marcus Performed By: Adalberto Montiel RVT
== END | disposition home or self-care (01) ==
LOC: CVS 09:46
PROVIDERS: PCP Internal Medicine; Referring Provider Physician Assistant; Visit Provider Physician Assistant
DX: T81.718A Complication of other artery following a procedure, not elsewhere classified, initial encounter (principal); I72.9 Aneurysm of unspecified site; R09.89 Other specified symptoms and signs involving the circulatory and respiratory systems
CPT/HCPCS: 93926

== ENCOUNTER → 2023-05-17 | Outpatient (CLI) | payer MEDICARE, OTHER, SELFPAY ==
[2023-05-17 11:18] LABS: Mucous, Urine 0 SEEN /hpf (<or=2+)
[2023-05-17 12:17] LABS: Color, Urine Yellow (Yellow); Glucose, Dipstick Normal (Normal); Ketone-Dipstick Negative (Negative); Leukocyte Esterase-Dipstick 25 /ul (Negative); Nitrite-Dipstick Positive (Negative); Occult Blood-Urine 25 /ul (Negative); Protein-Dipstick 15 mg/dl (Negative); Specific Gravity, Urine 1.015 (1.002-1.030); Urine Bilirubin Dipstick Negative (Negative); Urine Clarity Sl. Cloudy (Clear); Urine Urobilinogen Normal (Normal)
[2023-05-17 12:19] LABS: Absolute Lymphocyte Count 2.67 X10^3/uL (0.83-4.51); Absolute Neutrophil Count 4.1 X10^3/uL (2.0-7.7); Basophil# 0.03 X10^3/uL; Basophil% 0.4 % (0-1); Eosinophil# 0.21 X10^3/uL; Eosinophils% 2.7 % (0-5); Hematocrit 44.7 % (37-47); Hemoglobin 14.3 g/dL (12.0-15.0); Lymphocyte # 2.67 X10^3/ul (0.83-4.51); Lymphocyte % 34.9 % (19-41); Mean Corpuscular Hgb 30.2 pg (27.0-32.0); Mean Corpuscular Volume 94.3 fL (81-99); Mean Platelet Vol. 9.3 fl (6.2-12.0); Monocyte# 0.67 X10^3/uL; Monocyte% 8.8 % (0-10); NRBC Flagged by Analyzer 0 % (0-5); Neutrophil # 4.05 X10^3/uL (2.7-7.7); Neutrophil % 52.9 % (47-70); Platelet Count 273 K/mm3 (150-450); RBC Distribution Width CV 12.9 % (11.6-14.6); Red Blood Count 4.74 M/mm3 (4.2-5.4); White Blood Count 7.7 K/mm3 (4.4-11.0)
[2023-05-17 12:28] LABS: Bacteria 2+ /hpf (None Seen); Red Blood Cells-Urine 0-5 SEEN /hpf (0-5); Squamous Epithelial Cells - UA 0-5 SEEN /hpf (5-10); White Blood Cells 0-5 SEEN /hpf (0-5)
[2023-05-17 12:39] LABS: Anion Gap 6 (5-15); BUN 20 mg/dL (7-18); Calcium,Total 8.7 mg/dL (8.5-10.1); Chloride 108 mmol/L (98-107); Creatinine, Serum 0.87 mg/dL (0.55-1.02); EST Glomerular Filtration Rate 68 mL/min (>60); Est Glom Filt Rate - Afr Amer 83 mL/min (>60); Glucose 97 mg/dL (74-106); Potassium 4.2 mmol/L (3.5-5.1); Sodium Level 140 mmol/L (136-145)
== END | disposition home or self-care (01) ==
LOC: BIMLAB 11:16
PROVIDERS: PCP Internal Medicine; Referring Provider Internal Medicine; Visit Provider Internal Medicine
DX: R53.1 Weakness (principal); R82.90 Unspecified abnormal findings in urine
CPT/HCPCS: 36415; 80048; 81001; 85025; 87086; 87088; 87186

== ENCOUNTER → 2023-05-26 | Outpatient (CLI) | payer MEDICARE, OTHER, SELFPAY ==
--- NOTE | 2023-05-26 09:55 | MRI_ITS ---
STUDY: MRI LEFT SHOULDER REASON FOR EXAM: Female, 67 years old. LUMP OVER DISTAL CLAVICLE,, SHOULDER PAIN, NKI TECHNIQUE: Standardized fat and water weighted pulse sequences were obtained in all 3 orthogonal planes. COMPARISON: X-ray of the left shoulder dated March 24, 2023 FINDINGS: Small undersurface insertional tears of the supraspinatus tendon are present at the greater tuberosity with secondary associated mild to moderate calcific tendinitis. The proximal fibers of the supraspinatus tendon demonstrate mild tendinosis. Moderate degenerative narrowing of the glenohumeral articulation with moderate osteophyte formation of the medial inferior aspect of the humeral head. Diffuse 360 degrees labral tearing with partial detachment at the periphery is also present. There is partial tearing and high-grade tendinosis of the intracapsular aspect of the biceps tendon as it courses across the humeral head. There is infraspinatus tendinosis with tendon thickening, but without a demonstrated tendon tear. Normal subscapularis tendon. Normal teres minor tendon. There is mild muscular atrophy of the supraspinatus muscle. There is mild muscular atrophy of the infraspinatus muscle. Normal subscapularis muscle. Normal teres minor muscle. Normal capsulo- ligamentous complex. Normal rotator interval. There is mild osteoarthritis of the acromioclavicular articulation. A large fluid-filled ganglion cyst has been extruded from the superior/proximal aspect of the AC joint into the overlying subcutaneous fat measuring 2.92 x 2.83 cm in diameter. A small cluster of ganglion cysts are also present at the undersurface of the AC joint. There is a Type II morphology (curved), with a neutral orientation. There is minimal fluid distention of the subacromial bursa, consistent with mild subacromial-subdeltoid bursitis. Normal visualized coracohumeral and coracoacromial ligaments. Normal quadrilateral space. Normal axillary space. Normal deltoid muscle. Normal trapezius muscle. MRI/Upper Ext Joint Only W/WO Cont IMPRESSION: 1. A large fluid-filled ganglion cyst has been extruded from the superior/proximal aspect of the AC joint into the overlying subcutaneous fat measuring 2.92 x 2.83 cm in diameter. A small cluster of ganglion cysts are also present at the undersurface of the AC joint. 2. Small undersurface insertional tears of the supraspinatus tendon are present at the greater tuberosity with secondary associated mild to moderate calcific tendinitis. The proximal fibers of the supraspinatus tendon demonstrate mild tendinosis. 3. Moderate degenerative narrowing of the glenohumeral articulation with moderate osteophyte formation of the medial inferior aspect of the humeral head. 4. Diffuse 360 degrees labral tearing with partial detachment at the periphery is also present. 5. There is partial tearing and high-grade tendinosis of the intracapsular aspect of the biceps tendon as it courses across the humeral head. Electronically Signed: Heriberto Bolivar MD at 19:18 EST ,
[2023-05-26 09:56] LABS: Mucous, Urine 0 SEEN /hpf (<or=2+); Red Blood Cells-Urine 0 SEEN /hpf (0-5)
[2023-05-26 12:47] LABS: Color, Urine Yellow (Yellow); Glucose, Dipstick Normal (Normal); Ketone-Dipstick Negative (Negative); Leukocyte Esterase-Dipstick Negative /ul (Negative); Nitrite-Dipstick Negative (Negative); Occult Blood-Urine Negative /ul (Negative); Protein-Dipstick Negative (Negative); Urine Bilirubin Dipstick Negative (Negative); Urine Clarity Sl. Cloudy (Clear); Urine Urobilinogen Normal (Normal); Urine pH 6.5 (5.0 - 8.0)
[2023-05-26 13:16] LABS: Bacteria RARE /hpf (None Seen); Squamous Epithelial Cells - UA 5-10 SEEN /hpf (5-10)
[2023-05-26 13:17] LABS: White Blood Cells 0-5 SEEN /hpf (0-5)
== END | disposition home or self-care (01) ==
LOC: MRI 09:49
PROVIDERS: PCP Internal Medicine; Referring Provider Orthopaedic Surgery Orthopaedic Surgery of the Spine; Visit Provider Orthopaedic Surgery Orthopaedic Surgery of the Spine
DX: N39.0 Urinary tract infection, site not specified (principal); M25.512 Pain in left shoulder; R22.9 Localized swelling, mass and lump, unspecified
CPT/HCPCS: 73223; 81001; 87086; 87088; A9575

== ENCOUNTER → 2023-06-07 | Outpatient (CLI) | payer MEDICARE, OTHER, SELFPAY ==
--- NOTE | 2023-06-07 09:49 | ADUL_ITS ---
Reason For Study: Iatrogenic SFA Pseudoaneurysm. Right Velocities MANAGER REPORTING measures 0.76 x 0.86 cm. MANAGER REPORTING 118.2/6.7 cm/s. CFV is compressible with spontaneous and phasic flow. SFA measures 0.41cm in long axis Pseudo noted off of the SFA measuring 1.11cm x 1.56 cm. Multiple necks feeding pseudoaneurysm noted. Neck 1 measures approximately 0.25cm in long axis. Neck 2 measures approximately 0.37cm in long axis. Hematoma noted measuring 1.65cm x 2.26 cm. Procedure The exam was diagnostic. VL/US Art Duplex Unilat Lower Ext Interpretation Summary Right superficial femoral artery pseudoaneurysm with minimal increase in size, hematoma decreasing in size. Ordering Physician: Africa Marcus Referring Physician: Yesi Clinton Performed By: Jeovanny Veloz RVT
== END | disposition home or self-care (01) ==
PROVIDERS: PCP Internal Medicine; Referring Provider Physician Assistant; Visit Provider Physician Assistant
DX: T81.718A Complication of other artery following a procedure, not elsewhere classified, initial encounter (principal); I72.4 Aneurysm of artery of lower extremity; X58.XXXA Exposure to other specified factors, initial encounter
CPT/HCPCS: 93926

== ENCOUNTER → 2023-07-06 | Outpatient (CLI) | payer MEDICARE, OTHER, SELFPAY ==
--- NOTE | 2023-07-06 12:00 | CT_ITS ---
STUDY: CTA OF THE ABDOMINAL AORTA AND BILATERAL LOWER EXTREMITIES REASON FOR EXAM: Female, 67 years old. Iatrogenic R SFA Pseudoaneurysm, surgical planning RADIATION DOSAGE (If Supplied By Facility): CTDIvol = ( 8.89 ) mGy, DLP = ( 1792.22 ) mGycm TECHNIQUE: Axial CT angiography multi-detector data acquisition was obtained from the dome of the liver to the level of the ankles following intravenous administration of IV 100mL Isovue-370. Axial images and MIP images were reconstructed from the axial data set. Post-processing of the angiographic images was performed, with multiplanar reformation and 3D reconstruction. Individualized dose optimization techniques were used for this CT. TECHNICAL QUALITY: Good COMPARISON: None. Descriptors of Narrowing: None (0%) Mild (< 50%) Moderate (50-70%) Severe (70-90%) Subtotal/Total Occlusion (90-100%) Non-Evaluable (technically non-diagnostic FINDINGS: Coronary artery calcification. Diffuse fatty infiltration of the liver. 2 mm nonobstructive calculus in the lower pole calyx of the right kidney. Sigmoid diverticulosis. Bilateral total hip replacement. 3.2 cm lipoma in the left upper quadrants of small subtle. Abdominal aorta: Scattered atherosclerotic plaque formation. Celiac and superior mesenteric arteries: No demonstrated narrowing. Inferior mesenteric artery: No demonstrated narrowing. Right renal artery(arteries): No demonstrated narrowing. Left renal artery(arteries): No demonstrated narrowing. Right common iliac artery: Nonobstructive calcified plaques. Right external iliac artery: Nonobstructive calcified plaques. Right internal iliac artery: No demonstrated narrowing. Left common iliac artery: No demonstrated narrowing. Left external iliac artery: No demonstrated narrowing. Left internal iliac artery: No demonstrated narrowing. RIGHT LOWER EXTREMITY Right common femoral artery: No demonstrated narrowing. Right profundus femoris: No demonstrated narrowing. 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 Small lymph nodes are seen at that site. Right popliteal artery: No demonstrated narrowing. Right tibioperoneal trunk: No demonstrated narrowing. Right anterior tibial artery: No demonstrated narrowing. Right posterior tibial artery: No demonstrated narrowing. Right peroneal artery: No demonstrated narrowing. LEFT LOWER EXTREMITY Left common femoral artery: No demonstrated narrowing. Left profundus femoris: No demonstrated narrowing. Left superficial femoral: No demonstrated narrowing. Left popliteal artery: No demonstrated narrowing. Prior left total hip replacement. Left tibioperoneal trunk: No demonstrated narrowing. Left anterior tibial artery: No demonstrated narrowing. Left posterior tibial artery: No demonstrated narrowing. Left peroneal artery: No demonstrated narrowing. 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 Electronically Signed: Brooks Medina MD at 15:09 EST ,
[2023-07-06 12:47] LABS: CREATININE FINGERSTICK 1.2 mg/dL (0.55-1.02)
== END | disposition home or self-care (01) ==
LOC: CT 12:00
PROVIDERS: PCP Internal Medicine; Referring Provider Physician Assistant; Visit Provider Physician Assistant
DX: I72.4 Aneurysm of artery of lower extremity (principal); T81.718A Complication of other artery following a procedure, not elsewhere classified, initial encounter; X58.XXXA Exposure to other specified factors, initial encounter
CPT/HCPCS: 75635; Q9967

== ENCOUNTER 2023-09-07 06:02 | Inpatient (IN) | payer MEDICARE, OTHER, SELFPAY ==
[2023-08-26 10:08] LABS: Absolute Lymphocyte Count 2.22 X10^3/uL (0.83-4.51); Absolute Neutrophil Count 4.5 X10^3/uL (2.0-7.7); Basophil# 0.05 X10^3/uL; Basophil% 0.7 % (0-1); Eosinophil# 0.19 X10^3/uL; Eosinophils% 2.5 % (0-5); Hematocrit 43.8 % (37-47); Lymphocyte # 2.22 X10^3/ul (0.83-4.51); Lymphocyte % 29.2 % (19-41); Mean Corpuscular Hgb 29.5 pg (27.0-32.0); Mean Corpuscular Volume 92.2 fL (81-99); Mean Platelet Vol. 9.8 fl (6.2-12.0); Monocyte# 0.63 X10^3/uL; Monocyte% 8.3 % (0-10); NRBC Flagged by Analyzer 0 % (0-5); Neutrophil # 4.49 X10^3/uL (2.7-7.7); Platelet Count 185 K/mm3 (150-450); RBC Distribution Width CV 12.8 % (11.6-14.6); RBC Distribution Width SD 43.5 fl (35.1-43.9); Red Blood Count 4.75 M/mm3 (4.2-5.4); White Blood Count 7.6 K/mm3 (4.4-11.0)
[2023-08-26 10:54] LABS: ALB/GLOB Ratio 0.9 RATIO (0.9-2.4); AST(SGOT) 23 U/L (15-37); Alanine Aminotransfer ALT/SGPT 39 U/L (13-56); Albumin, Serum 3.7 g/dL (3.2-5.0); Alkaline Phosphatase 52 U/L (45-117); Anion Gap 7 (5-15); BUN 23 mg/dL (7-18); BUN/Creat Ratio 22.8 RATIO (10-20); Calcium,Total 8.8 mg/dL (8.5-10.1); Chloride 107 mmol/L (98-107); Creatinine, Serum 1.01 mg/dL (0.55-1.02); EST Glomerular Filtration Rate 58 mL/min (>60); Est Glom Filt Rate - Afr Amer 70 mL/min (>60); Globulin 4.1 g/dL (2.2-4.2); Glucose 103 mg/dL (74-106); Magnesium 2.2 mg/dL (1.6-2.6); Potassium 4.3 mmol/L (3.5-5.1); Protein, Total 7.8 g/dL (6.4-8.2); Sodium Level 138 mmol/L (136-145); T4 Free Direct 1.26 ng/dL (0.76-1.46)
[2023-09-07] VITALS (24 sets, daily range): BP systolic 104–144; BP diastolic 45–116; PULSE 57–75; RESP 12–20; TEMP 35.8–37.2; O2SAT 92–98; BMI 36.9; BMI 37.8
[2023-09-07] MEDS: Vancomycin HCl 1,750 MG in 0.9% Normal Saline (500mL Bag) 500 ML 250 MG IV (06:34)
[2023-09-07] MEDS: Lactated Ringers 1,000 ML 15 ML IV ×2 (06:40→09:15)
--- NOTE | 2023-09-07 07:30 | ART_PTH ---
PATIENT: BEULAH MCPHERSON LOC: [facility] U#:[id number] AGE/SX: 68/F ROOM: [place] [address] RE09/07/[address]: Dr. Doug Nowak MD : 1955 BED: 1 DIS: 09/08/2023 SPEC #: [id number] RECD: 09/07/23 10:25 STATUS: YECENIA REMaira #: [id number] VIKAS: 09/07/23 07:[address]: Doug Nowak DEPT: SURGICAL PATHOLOGY RECD BY: Cristina Ramirez ENTERED: 09/07/23 12:15 SP TYPE: ARTERY OTHR DR: MD Ashkan Angelo, [employer] SUPERVISOR-C Tissues: Artery, NOS Procedures: Surgery Specimen Level III HEADER OPERATION: Open repair of iatrogenic right SFA pseudoaneurysm PRE-OP DIAGNOSIS: Pseudoaneurysm of femoral artery following procedure TISSUE SUBMITTED: Pseudoaneurysm right femoral artery MICROSCOPIC DIAGNOSIS Pseudoaneurysm right femoral artery, excision: A segment of blood vessel with chronic inflammation and thrombus formation, consistent with pseudoaneurysm. RA/ 09/08/23 MICROSCOPIC DESCRIPTION Slides are reviewed. GROSS DESCRIPTION Received in fixative is one container labeled with the patient's name and designated Pseudoaneurysm femoral artery right. The specimen consists of a piece of rojas indurated tissue measuring 2.5 x 1.5 x 1.0cm. This specimen is serially sectioned and submitted entirely in two cassettes. RA/ 09/07/23 TC:5 CPT:50130
--- NOTE | 2023-09-07 07:31 | HP.PCM_ITS ---
HPI - General General Date of Admission: 09/07/23 HPI Narrative BEULAH MCPHERSON, is a 68 F who presents with an iatrogenic right SFA pseudoaneurysm after cardiac ablation. This has failed to resolve with observation. Presents for open repair [facility] Medical History Ambulates with cane Anemia Arthritis Atrial fibrillation with rapid ventricular response (08/01/21) Back pain Cardiology follow-up encounter Cervical radiculopathy COVID Excessive bleeding Fatty liver Foot drop, right Former smoker Health care maintenance HFrEF (heart failure with reduced ejection fraction) History of atrial fibrillation History of CHF (congestive heart failure) History of echocardiogram History of kidney stones History of pain when walking History of stress test Hyperlipidemia Hypertension Kidney stones Leg cramps Loose, teeth Lumbar radiculopathy Malaise and fatigue Migraines Osteoarthritis (arthritis due to wear and tear of joints) Post-menopausal Right knee pain Sleep apnea UTI (urinary tract infection) Wears glasses Home Medications Handicap Placard #1 ea 09/01/21 [Rx Last Taken Unknown] miconazole nitrate 2 % topical powder 1 applic topical BID PRN skin 02/03/22 [History Last Taken Unknown] acetaminophen 500 mg tablet 1,000 mg PO TID pain 03/18/22 [History Last Taken 09/06/23] furosemide 40 mg tablet 40 mg PO .PRN PRN edema, weight gain, SOB #30 tabs 11/30/22 [Rx Last Taken 07/01/23] tramadol 50 mg tablet 50 mg PO TID PRN pain #21 tabs 03/26/23 [Rx Last Taken Unknown] apixaban 5 mg tablet (Eliquis) 5 mg PO BID BLOOD THINNER #60 tabs 06/29/23 [Rx Last Taken 09/06/23] sacubitril 24 mg-valsartan 26 mg tablet (Entresto) 1 tab PO BID HEART #60 tabs 06/29/23 [Rx Last Taken 09/07/23] metoprolol tartrate 50 mg tablet 50 mg PO BID BP #180 tabs 08/31/23 [Rx Last Taken 09/07/23] Allergy/AdvReac Type Severity Reaction Status Date / Time piperacillin [From Zosyn] Allergy Rash Verified 09/01/23 09:24 tazobactam [From Zosyn] Allergy Rash Verified 09/01/23 09:24 amiodarone AdvReac Intermediate Lightheaded, Verified 09/01/23 09:24 feeling of impending doom diltiazem AdvReac Mild edema Verified 09/01/23 09:24 Family History Father CVA (cerebral vascular accident) Colon cancer Surgical History H/O total hip arthroplasty History of cardiac radiofrequency ablation (RFA) (03/30/23) History of cardioversion (01/08/22) History of laminectomy (~2015) History of total left knee replacement Hx of cardiac catheterization (~10/27/22) Social History Smoking Status: Former smoker how long ago did patient quit smokin years ago alcohol intake: never substance use type: does not use caffeine: Yes Type: coffee Number of servings: 1 ROS Constitutional Constitutional: Denies chills, fever(s), frequent falls, lethargy or weakness Eyes Eyes: Denies blind spots, change in vision or loss of vision ENT HEENT: Denies bleeding gums, hoarseness or sore throat Cardiovascular Cardiovascular: Denies abdominal pain, bluish discoloration of hand/feet, chest pain with activity, claudication, cold extremities, cyanosis, dyspnea on exertion, erythema on extremities, irregular heart rhythm, leg edema, leg ulcers, numbness in extremities or weakness in extremities Respiratory/Chest Respiratory/Chest: Denies cough, excessive phlegm production, shortness of breath at rest, shortness of breath with exertion or wheezing Gastrointestinal Gastrointestinal: Denies anorexia, change in stool character, constipation, diarrhea, melena or rectal bleeding Genitourinary Genitourinary: Denies dysuria or hematuria Musculoskeletal Musculoskeletal: Denies abnormal gait Integumentary Integumentary: Reports other Details: ; Denies erythema, non-healing lesions or wounds Neurologic Neurologic: Denies abnormal speech, focal weakness, headache(s), loss of vision, numbness, paresthesias or sensory deficit Hematologic/Lymphatic Hematologic/Lymphatic: Denies easy bleeding, easy bruising or lymphadenopathy Vital Signs Vital Signs Vital Signs: 09/07/23 06:31 09/07/23 06:44 Temperature 99.0 F Temperature Source Temporal Pulse Rate 62 Respiratory Rate 16 Respiratory Pattern Normal Blood Pressure 109/49 L Blood Pressure Mean 69 Blood Pressure Source Monitor Blood Pressure Position Semi-Fowlers Blood Pressure Location Right Arm Pulse Ox 96 Oxygen Delivery Method Room Air Weight Weight: 235 lb 14.314 oz Body Mass Index (BMI) 36.9 Physical Exam Const alert, oriented x3, no apparent distress and healthy appearing General Appearance: cooperative; Negative for combative or lethargic Orientation / Consciousness: awake Exam Limitations: no limitations HEENT Head and Scalp: normocephalic and atraumatic Eyes EOMs intact bilaterally General Eye: normal appearance of both eyes Neck full ROM, no lymphadenopathy, thyroid normal and No no carotid bruits General: trachea midline; Negative for lymphadenopathy or tenderness Thyroid: thyroid normal Lymph Lymphatic: Negative for no lymphadenopathy noted Resp normal respiratory effort and no use of accessory muscles Effort and Inspection: Negative for labored, stridor or audible wheezes Cardio regular rate and regular rhythm Back/Spine Cervical Spine: cervical ROM normal Extremity full ROM, normal capillary refill and no clubbing, cyanosis or edema Skin no rashes or lesions noted and no wounds Neuro oriented x3, CN's II-XII intact bilaterally, no focal motor deficits and no sensory deficits noted Psych thought process normal, cooperative, affect normal, speech normal and activ ity/motor behavior normal Results Lab / Micro Data 08/26/23 09:25 08/26/23 09:25 Assessment & Plan Assessment/Plan (1) Pseudoaneurysm of femoral artery following procedure: PLAN: -open repair
[2023-09-07] MEDS: Heparin Injection (Vial) 5,000 UNIT/ML VIAL 5000 UNIT (08:30)
[2023-09-07] MEDS: Bupivacaine Mpf 0.5% 30 ML VIAL (09:25)
--- NOTE | 2023-09-07 09:29 | PCM.OPRPT ---
Report of Operation Date of Procedure: 09/07/23 Pre-Operative Diagnosis: right SFA pseudoaneurysm Post-Operative Diagnosis: same Surgery/Procedure Performed:: simple repair right SFA pseudoaneurysm Surgeon: Doug Nowak Type of Anesthesia: General Estimated Blood Loss (mL): 4 Description of Procedure: HPI: Patient is a 69-year-old female who previously underwent right heart catheterization and ablation at an outside facility. Postoperatively she had increasing right groin discomfort and was found to have a pseudoaneurysm which was very small with a moderate size surrounding hematoma. It was small enough to observe with hopes that it would resolve spontaneously however the flow chamber has remained stable in size despite the hematoma decreasing in size. There is not an adequate enough of a neck for thrombin injection chest he presents now for open repair of right proximal SFA pseudoaneurysm. Description of procedure: Upon obtaining informed consent and verification correct patient procedure site patient taken to the operating where she was placed under general anesthesia. She was then positioned prepped and draped in usual sterile fashion and timeout was performed. Ultrasound was used to evaluate the proximal SFA and the pseudoaneurysm located and identified. Skin incision was then made overlying the pseudoaneurysm and an oblique configuration and then Bovie electrocautery was dissect down to the subcutaneous tissue. Self-retaining retractors were put in position further dissection carried down to level the fascia. The fascia was then incised and self-retaining retractors moved deeper into the wound. At this point soft tissue inflammatory reaction surrounding the pseudoaneurysm was encountered in combination of sharp dissection Bovie dissection was carried down to the pseudoaneurysm capsule. There is also some staining from the prior hematoma but ultimately were able to get down to the capsule of the pseudoaneurysm. We then dissected free proximally and expose the proximal superficial femoral artery above the area of reaction and a right angle to place a vessel loop. The patient was then heparinized while further dissection was carried distally beyond the pseudoaneurysm. The more thrombosed proximal and distal towards the pseudoaneurysm converging on the puncture site. Once we got to the point of the source of the pseudoaneurysm neck this was transected exposing the puncture site. This was only bleeding intermittently and a 5-0 Prolene U-stitch was placed which secured the puncture site with adequate hemostasis noted. The incision was then inspected for hemostasis no further puncture sites were identified. The incision was then closed with 2-0 Vicryl, 3-0 Vicryl, 4-0 Monocryl and Dermabond for the skin. Prevena wound VAC was then applied the patient taken recovery room with anticipated admission to the stepdown unit for hemodynamic and vascular monitoring.
[2023-09-07] MEDS: 0.45% Normal Saline 1,000 ML 75 ML IV (10:53)
[2023-09-07] MEDS: 0.9% Saline Lock 10 ML Syringe IV (10:58)
[2023-09-07] MEDS: Ondansetron 4 MG/2 ML Vial IV (10:58)
[2023-09-07] MEDS: Glycerin/Hypromellose/PEG400 15 ml Bottle 2 DRP EACH EYE (13:38)
[2023-09-07] MEDS: Acetaminophen 500 MG Tablet 1000 MG PO ×2 (13:38→21:11)
[2023-09-07] MEDS: oxyCODONE 5 MG Tablet PO (18:29)
[2023-09-07] MEDS: SACUBITRIL/VALSARTAN 24/26 MG TABLET 1 EACH PO (21:10)
[2023-09-07] MEDS: Metoprolol Tartrate 50 MG Tablet PO (21:11)
[2023-09-08] VITALS (17 sets, daily range): BP systolic 98–120; BP diastolic 44–57; PULSE 50–77; RESP 11–20; TEMP 36.3–36.8; O2SAT 94–98; BMI 38.2
[2023-09-08] MEDS: 0.45% Normal Saline 1,000 ML 75 ML IV (00:13)
[2023-09-08] MEDS: traMADol 50 MG Tablet PO (00:46)
[2023-09-08] MEDS: Acetaminophen 500 MG Tablet 1000 MG PO ×2 (05:16→13:36)
--- NOTE | 2023-09-08 08:47 | PCM.PN.SRG ---
Subjective Subjective Susan Christianson is a 68 y/o female who is s/p simple repair of R SFA pseudoaneurysm on 09/07/23. She has done well overnight. She had lower blood pressures and HR overnight. She does note that she was seen at [facility] recently for f/u from her ablation and they had increased her metoprolol dose to 50mg BID (from 25mg BID) due to elevated BP at that time; however, she notes her BP has been low at home as well so she feels this dose is too high. She does typically follow with [facility]. Otherwise, she has been voiding without difficulty. She has been tolerating a liquid diet. She has expected discomfort at the groin incision site, but this is well controlled with oral pain medications. She denies any new/worsening pain down the RLE, chest pain, SOB. She has not been up to the chair or to ambulate yet due to some lightheadedness after surgery yesterday. She is overall feeling much better this morning and is eager to get out of the bed. Objective Data Objective Data Vital Signs: Vital Signs Temp Pulse Resp BP Pulse Ox O2 Del Method O2 Flow Rate 97.6 F L 74 18 118/47 L 96 Room Air 2 09/08/23 06:00 09/08/23 08:00 09/08/23 08:00 09/08/23 08:00 09/08/23 08:00 09/08/23 08:00 09/07/23 11:34 Oxygen Flow Rate (L/min) 2 Oxygen Delivery Method Room Air Weight: 244 lb 4.355 oz Body Mass Index (BMI) 38.2 Intake & Output: Intake and Output for Last 24 Hours 09/06/23 09/07/23 09/08/23 23:59 23:59 23:59 Intake Total 1918.75 / 1918.75 1000 / 1000 Output Total 650 / 1350 1500 / 1500 Balance 1268.75 / 568.75 -500 / -500 Lab / Micro Data 08/26/23 09:25 08/26/23 09:25 Physical Exam Const alert, oriented x3 and no apparent distress General Appearance: cooperative and comfortable HEENT normocephalic, head/scalp atraumatic, hearing grossly normal bilaterally, external ears normal and external nose normal Eyes EOMs intact bilaterally General Eye: normal appearance of both eyes Resp normal respiratory effort, normal air movement, no retractions and no use of accessory muscles Effort and Inspection: able to speak in complete sentences; Negative for labored, stridor or audible wheezes Cardio regular rate and regular rhythm Extremity Extremity Narrative: R groin incision site with Prevena vacuum dressing intact and maintaining seal. No ecchymosis visible around the bandage. No focal swelling, erythema. No drainage. Peripheral Pulses: Yes posterior tibial pulses present and dorsalis pedis pulses present Skin no rashes or lesions noted Neuro CN's II-XII intact bilaterally, moves all extremities, no focal motor deficits and no sensory deficits noted Speech: speech normal Psych mental status grossly normal Appearance: grossly normal Attitude: calm and engaged Activity / Motor Behavior: appropriate eye contact Speech: normal speech Mood & Affect: euthymic mood Judgement: judgement good Assessment & Plan Assessment/Plan (1) Pseudoaneurysm of femoral artery following procedure: PLAN: Plan She is s/p simple repair R SFA pseudoaneurysm. She is recovering well. Incision site is satisfactory in appearance, pedal pulses are palpable. Her pain is well controlled. Due to lower blood pressures and HR, will reduce back to her prior dose of metoprolol 25mg BID. Will continue to monitor. Will progress to a normal diet. She will get up to the chair and ambulate later this morning. As long as she does well with both, anticipate discharge this afternoon.
--- NOTE | 2023-09-08 09:46 | CASEMGMT ---
BOB GUADARRAMA Assessment Face to Face with patient for initial transition planning/care coordination assessment. BOB GUADARRAMA introduced self and role at [facility], pt voices understanding. Pt is A&Ox4 and is resting comfortably in the chair and is calm. Care providers, pharmacy, and demographics verified. Admitting dx: Open repair of iatrogenic right SFA LACE Strata: 1 PCP: [facility] Specialists: [facility] for CPAP needs. JOSE MARIA (Juan Carlos). [place]. Villaseñor (Ortho). Preferred Pharmacy: [facility] Insurance: [facility] A/B. [employer] Prescription Benefit: Yes LNOK: Maureen Velásquez (Cousin) Living Arrangements: Pt lives alone in a 2 story home with a BM with HR to the up and downstairs. Pt states that there is not a bathroom on the main level. Pt states that she has a hospital bed and a BSC on the main level. Pt has a ramp to enter the home. Pt states that this was built for her mother before she passed. ADLs/IADLs: States ind Transportation: Self, neighbors DME: Pt states that she is supposed to wear a CPAP at night but has had troubles getting used to it. Pt has a BSC. Hospital bed. Pt uses a cane. Walker and power WC at home. Rollator. Shower GB and seat. HHC/SNF: HHC history in 2016 from back surgery. Denies SNF history or needs. Pt?s goal: Home no needs Plan: PT and OT evaluations are pending. Pt denies the need for HHC or OP therapy at this time. Will follow therapy. Pt states that she is really cautious at home. Pt wishes to return home with no needs. This BOB GUADARRAMA stated to the pt that if the pt changes her mind to reach out to case management in regard to additional resources. Pt states understanding and thanks this BOB GUADARRAMA. CM to follow for safe DC from [facility]. Guru Costello RN, CM
[2023-09-08] MEDS: SACUBITRIL/VALSARTAN 24/26 MG TABLET 1 EACH PO (09:51)
[2023-09-08] MEDS: Metoprolol Tartrate 25 MG Tablet PO (09:52)
--- NOTE | 2023-09-08 11:13 | PCM.DC.SUM ---
Providers Date of Admission: 09/07/23 Date of Discharge: 09/08/23 Primary Care Physician: Dr. Yesi Clinton MD Reason For Visit: open repair of iatrogenic right SFA Diagnosis Discharge Diagnosis (1) Pseudoaneurysm of femoral artery following procedure: Status: Acute Code(s): T81.718A - Complication of other artery following a procedure, not elsewhere classified, initial encounter; I72.4 - Aneurysm of artery of lower extremity Medications at Discharge Home Medications Handicap Placard #1 ea 09/01/21 miconazole nitrate 2 % topical powder 1 applic topical BID PRN skin 02/03/22 acetaminophen 500 mg tablet 1,000 mg PO TID pain 03/18/22 furosemide 40 mg tablet 40 mg PO .PRN PRN edema, weight gain, SOB #30 tabs 11/30/22 tramadol 50 mg tablet 50 mg PO TID PRN pain #21 tabs 03/26/23 apixaban 5 mg tablet (Eliquis) 5 mg PO BID BLOOD THINNER #60 tabs 06/29/23 sacubitril 24 mg-valsartan 26 mg tablet (Entresto) 1 tab PO BID HEART #60 tabs 06/29/23 metoprolol tartrate 25 mg tablet 25 mg PO BID #0 tabs 09/08/23 oxycodone 5 mg tablet 5 mg PO Q8H PRN PRN Pain Score 6-10 4 days #12 tabs 09/08/23 Hospital Course Operations - (Repair R SFA Pseudoaneurysm) Summary of Care Provided Hospital Course: Susan Christianson is a 68 y/o female who is s/p simple repair of R SFA pseudoaneurysm on 09/07/23. She has been recovering well. The incision site was closed with skin glue and Prevena vacuum dressing is overlying with good seal. The site is satisfactory in appearance. Her R DP and PT pulses are palpable. R foot is warm and pink. She was noted to have lower blood pressures and heart rate overnight with metoprolol 50mg, this was decreased to her prior dose of 25mg this morning and her BP/HR did improve. She does report it was recently increased to 50mg due to BP. Will have her continue at metoprolol 25mg BID at discharge, she will monitor her BP and palpitations and increase back to 50mg BID should these increase. Will also inform [facility] of these changes at d/c so they are aware, she does have f/u with them in September. Her pain is well controlled. She is tolerating a normal diet. She is voiding without difficulty. She has been ambulating well. She is medically stable for discharge home. She has follow-up in the office on 09/23/23 Physical Exam Const alert, oriented x3 and no apparent distress General Appearance: cooperative and comfortable HEENT normocephalic, head/scalp atraumatic, hearing grossly normal bilaterally, external ears normal and external nose normal Eyes EOMs intact bilaterally General Eye: normal appearance of both eyes Resp normal respiratory effort, normal air movement, no retractions and no use of accessory muscles Effort and Inspection: able to speak in complete sentences; Negative for labored, stridor or audible wheezes Cardio regular rate and regular rhythm Extremity Extremity Narrative: R groin incision site with Prevena vacuum dressing intact and maintaining seal. No ecchymosis visible around the bandage. No focal swelling, erythema. No drainage. R foot is warm and pink with palpable DP/PT pulses. Peripheral Pulses: Yes posterior tibial pulses present and dorsalis pedis pulses present Skin no rashes or lesions noted Neuro CN's II-XII intact bilaterally, moves all extremities, no focal motor deficits and no sensory deficits noted Speech: speech normal Psych mental status grossly normal Appearance: grossly normal Attitude: calm and engaged Activity / Motor Behavior: appropriate eye contact Speech: normal speech Mood & Affect: euthymic mood Judgement: judgement good Weight / BMI Weight Weight: 244 lb 4.355 oz Body Mass Index (BMI) 38.2 ABG / Lab / Microbiology Data 08/26/23 09:25 08/26/23 09:25 D/C Instructions Discharge Diet: No restrictions May shower in (days): 1 Weight Bearing Status: Weight bearing as tolerated Lifting Restricted to (Lbs): 20 Lifting Restrictions: Do not lift greater than 20 pounds for 3 weeks Call your doctor if your incision/area has: Sudden Increased Bleeding and Foul Smelling Discharge Call your doctor if you observe: Fever of 101 or Higher and Uncontrolled pain Remove Dressing in: 6 days Additional Instructions: The R groin incision site has a Prevena vacuum dressing overlying. This should remain in place for 7 total days as long as it remains clean, intact, and maintaining a good seal. If it begins to alarm and will not stop or there are issues with the seal then it is okay to remove this early. To remove, you will need to hold the power button until the green light disappears, then disconnect the white connectors [facility] down the tubing, then the purple foam should puff up, then you may peel off the bandage. The entire vacuum dressing may be thrown away. If you have any trouble with this, please contact the office at [phone]. You may shower tomorrow. Do not take a bath or otherwise submerge the incision site in water (such as to swim, etc) for 3 weeks. Do not lift greater than 20 pounds for 3 weeks. I have prescribed oxycodone 5mg tablets to be taken by mouth every 8 hours as needed for pain. You may take this with Tylenol as needed. We discussed the changes to your metoprolol. Please continue to take Metoprolol 25mg BID for now. Please continue to check your BP and HR at home daily. If your blood pressure is consistently >140 systolic or you have increased frequency of palpitations then please increase back to the 50mg BID and contact your dining room helper. Please return to the office as scheduled on 09/23/23. Please contact the office if you need to change this appointment or if you have any other questions/concerns at [phone]. Please Follow Up With: Africa Marcus PA When: 09/23/23 Meaningful Use Info Meaningful Use Diagnoses (Choose all that apply): None applicable Discharge Plan Admission Admit Date/Time: 09/07/23 06:02 Primary Reason for Your Visit: Repair with R iatrogenic SFA pseudoaneurysm Attending Provider: Doug Nowak Primary Care Provider: Yesi Clinton Consulting Providers: Ashkan Remy NP Instructions Additional Instructions / Restrictions: The R groin incision site has a Prevena vacuum dressing overlying. This should remain in place for 7 total days as long as it remains clean, intact, and maintaining a good seal. If it begins to alarm and will not stop or there are issues with the seal then it is okay to remove this early. To remove, you will need to hold the power button until the green light disappears, then disconnect the white connectors [facility] down the tubing, then the purple foam should puff up, then you may peel off the bandage. The entire vacuum dressing may be thrown away. If you have any trouble with this, please contact the office at [phone]. You may shower tomorrow. Do not take a bath or otherwise submerge the incision site in water (such as to swim, etc) for 3 weeks. Do not lift greater than 20 pounds for 3 weeks. I have prescribed oxycodone 5mg tablets to be taken by mouth every 8 hours as needed for pain. You may take this with Tylenol as needed. We discussed the changes to your metoprolol. Please continue to take Metoprolol 25mg BID for now. Please continue to check your BP and HR at home daily. If your blood pressure is consistently >140 systolic or you have increased frequency of palpitations then please increase back to the 50mg BID and contact your dining room helper. Please return to the office as scheduled on 09/23/23. Please contact the office if you need to change this appointment or if you have any other questions/concerns at [phone]. Discharge Orders/Prescriptions Prescriptions: New oxycodone 5 mg Tablet 5 mg PO Q8H PRN PRN (Reason: Pain Score 6-10) 4 Days Qty: 12 0RF metoprolol tartrate 25 mg Tablet 25 mg PO BID Qty: 0 0RF Continued miconazole nitrate 2 % powder 1 applic topical BID PRN (Reason: skin) (DME) Handicap Placard See Rx Instructions .ROUTE .MEDSUPPLY Qty: 1 0RF Rx Instructions: As directed, length of time 3 years acetaminophen 500 mg tablet 1,000 mg PO TID furosemide 40 mg tablet 40 mg PO .PRN PRN (Reason: edema, weight gain, SOB) Qty: 30 11RF tramadol 50 mg tablet 50 mg PO TID PRN (Reason: pain) Qty: 21 0RF Eliquis 5 mg tablet 5 mg PO BID Qty: 60 11RF Patient Comments: LAST DOSE 4/8 AM Entresto 24-26 mg tablet 1 tab PO BID Qty: 60 11RF Discontinued metoprolol tartrate 50 mg tablet 50 mg PO BID Qty: 180 3RF Referrals / Follow Up: Yesi Clinton MD [Primary Care Provider] - Disposition Disposition (needs filled in before D/C Order can be placed): Home, Self Care
== END 2023-09-08 15:10 | disposition home or self-care (01) | DRG 254 ==
LOC: ACINP 06:03 → ICU 14:57
PROVIDERS: Nurse Practitioner Family; Admitting Provider Surgery Trauma Surgery; PCP Internal Medicine; Referring Provider Surgery Trauma Surgery; Visit Provider Surgery Trauma Surgery
PROC: 04QK0ZZ Repair Right Femoral Artery, Open Approach (ICD-10-PCS; principal; 2023-09-07 07:10)
DX: T81.718A Complication of other artery following a procedure, not elsewhere classified, initial encounter (principal); E78.5 Hyperlipidemia, unspecified; I10 Essential (primary) hypertension; I72.4 Aneurysm of artery of lower extremity; Y83.8 Other surgical procedures as the cause of abnormal reaction of the patient, or of later complication, without mention of misadventure at the time of the procedure; Z79.01 Long term (current) use of anticoagulants; Z79.899 Other long term (current) drug therapy; Z86.16 Personal history of COVID-19; Z87.891 Personal history of nicotine dependence
CPT/HCPCS: 36415; 80053; 83735; 84439; 84443; 85025; 86850; 86900; 86901; 88304; 97802; 99252; A4648; J7040; J7120; A4216; G0463; J2405

== ENCOUNTER → 2023-10-15 | Outpatient (CLI) | payer MEDICARE, OTHER, SELFPAY ==
--- NOTE | 2023-10-15 13:37 | ADUL_ITS ---
Reason For Study: HX SFA Pseudoaneurysm repair Right Velocities PERSONAL CARE SERVICE PROVIDER measures 0.86cm in long axis PERSONAL CARE SERVICE PROVIDER PSV - 177.8 cm/s. CFV is compressible with spontaneous and phasic flow. SFA measures 0.52cm in long axis No Pseudo visualized. Procedure The exam was diagnostic. Exam performed in department. VL/US Art Duplex Unilat Lower Ext Interpretation Summary Patent right femoral vessels with normal velocities and no evidence of stenosis , pseudoaneurysm, or fistula. Ordering Physician: Africa Marcus Referring Physician: Africa Marcus Performed By: Jeovanny Veloz RVT
== END | disposition home or self-care (01) ==
LOC: CVS 13:35
PROVIDERS: PCP Internal Medicine; Referring Provider Physician Assistant; Visit Provider Physician Assistant
DX: Z48.812 Encounter for surgical aftercare following surgery on the circulatory system (principal)
CPT/HCPCS: 93926

== ENCOUNTER → 2023-11-26 | Outpatient (CLI) | payer MEDICARE, OTHER, SELFPAY | END | disposition home or self-care (01) | LOC: SL 10:00 | PROVIDERS: PCP Internal Medicine; Visit Provider Nurse Practitioner Acute Care | DX: G47.33 Obstructive sleep apnea (adult) (pediatric) (principal) | CPT/HCPCS: 98960; G0463 ==

== ENCOUNTER → 2024-02-11 | Outpatient (CLI) | payer MEDICARE, OTHER, SELFPAY ==
--- NOTE | 2024-02-11 12:52 | ADUL_ITS ---
Reason For Study: S/P Rt SFA pseudoaneurysm repair, recurrent pain Right Velocities PHOTOGRAPHER APPRENTICE measures 0.85 x 0.77 cm. PHOTOGRAPHER APPRENTICE PSV - 161.3 cm/sec. SFA prox measures 0.56 x 0.57 cm. SFA prox PSV, 193.6 cm/sec. CFV and FV prox is compressible with spontaneous and phasic flow. No Pseudoaneurysm visualized. Procedure Exam performed in department. Preliminary report given to Amrit GRAHAM. /US Art Duplex Unilat Lower Ext Interpretation Summary Patent right femoral vessels with no stenosis, pseudoaneurysm, or fistula ident ified. Ordering Physician: Africa Marcus Referring Physician: Yesi Clinton Performed By: Isabela Wild RVT
== END | disposition home or self-care (01) ==
LOC: CVS 12:50
PROVIDERS: PCP Internal Medicine; Referring Provider Physician Assistant; Visit Provider Physician Assistant
DX: Z48.812 Encounter for surgical aftercare following surgery on the circulatory system (principal); M79.604 Pain in right leg
CPT/HCPCS: 93926

== ENCOUNTER → 2024-02-18 | Outpatient (CLI) | payer MEDICARE, OTHER, SELFPAY ==
--- NOTE | 2024-02-18 12:55 | CT_ITS ---
PROCEDURE: CT RIGHT KNEE WITHOUT CONTRAST REASON FOR EXAM: Female, 68 years old. Preoperative planning for the MakoPl[employer] Robotic knee surgery. Knee pain. TECHNIQUE: Transaxial CT of the hip, knee and ankle were obtained. Coronal and sagittal reconstruction images of the knee were provided. Individualized dose optimization techniques were used for this CT. COMPARISON: None. FINDINGS: Standard protocol for the preoperative planning for the MakoPlasty robotic knee surgery was performed. Osteopenia with bilateral total arthroplasties without complications. Severe tricompartmental arthrosis of the right knee. Moderate arthrosis of the tibiotalar joint with subchondral cyst formation. CT/Extremity Lower without Contra IMPRESSION: Preoperative MakoPlasty Robotic knee surgical CT evaluation with findings as described above. Electronically Signed: Horacio Thomas MD at 13:53 EDT ,
== END | disposition home or self-care (01) ==
LOC: CT 12:55
PROVIDERS: PCP Internal Medicine; Referring Provider Orthopaedic Surgery; Visit Provider Orthopaedic Surgery
DX: M17.11 Unilateral primary osteoarthritis, right knee (principal)
CPT/HCPCS: 73700

== ENCOUNTER 2024-02-22 13:22 | Inpatient (IN) | payer MEDICARE, OTHER, SELFPAY ==
[2024-02-11 12:43] LABS: Absolute Lymphocyte Count 1.91 X10^3/uL (0.83-4.51); Absolute Neutrophil Count 5.1 X10^3/uL (2.0-7.7); Basophil# 0.03 X10^3/uL; Basophil% 0.4 % (0-1); Eosinophils% 1.3 % (0-5); Hematocrit 42.7 % (37-47); Hemoglobin 13.7 g/dL (12.0-15.0); International Normalized Ratio 1.5; Lymphocyte # 1.91 X10^3/ul (0.83-4.51); Lymphocyte % 24.6 % (19-41); Mean Corp Hgb Conc 32.1 g/dL (32-36); Mean Corpuscular Hgb 29.8 pg (27.0-32.0); Mean Corpuscular Volume 92.8 fL (81-99); Mean Platelet Vol. 9.8 fl (6.2-12.0); Monocyte# 0.58 X10^3/uL; Monocyte% 7.5 % (0-10); NRBC Flagged by Analyzer 0 % (0-5); Neutrophil # 5.13 X10^3/uL (2.7-7.7); Neutrophil % 65.9 % (47-70); Partial Thromboplast Time 38.8 Seconds (24.1-36.2); Platelet Count 219 K/mm3 (150-450); Prothrombin Time (Protime)PT. 17.7 SECONDS (11.7-14.9); RBC Distribution Width SD 44.3 fl (35.1-43.9); White Blood Count 7.8 K/mm3 (4.4-11.0)
[2024-02-11 12:59] LABS: Anion Gap 7 (5-15); BUN 17 mg/dL (7-18); BUN/Creat Ratio 16.8 RATIO (10-20); Calcium,Total 9.4 mg/dL (8.5-10.1); Chloride 109 mmol/L (98-107); Creatinine, Serum 1.01 mg/dL (0.55-1.02); EST Glomerular Filtration Rate 58 mL/min (>60); Est Glom Filt Rate - Afr Amer 70 mL/min (>60); Glucose 113 mg/dL (74-106); Potassium 4.2 mmol/L (3.5-5.1); Sodium Level 140 mmol/L (136-145)
[2024-02-11 14:31] LABS: Hemoglobin A1c 5.7 % (3.8-5.6)
[2024-02-13 08:08] LABS: Fructosamine 257 umol/L (0-285)
[2024-02-22] VITALS (17 sets, daily range): BP systolic 85–135; BP diastolic 46–72; PULSE 59–76; RESP 14–17; TEMP 35.7–37.4; O2SAT 93–100; BMI 35.9
[2024-02-22 08:46] LABS: INR Fingerstick 1.2; Prothrombin Time Fingerstick 13.4 SEC (11.7-14.9)
--- NOTE | 2024-02-22 09:18 | PRE.ANES_ITS ---
ASA Classification* ASA Classification ASA Classification: 3 Assessment & Plan Anesthesia* Anesthesia Assessment Anesthesia Assessment: Discussed sedation and/or anesthesia options, risks, benefits, and alternatives with patient/parents/legal guardian/POA. Questions invited. The patient/parents/legal guardian/POA seems to understand and agrees to proceed with anesthesia plan. Reviewed the physical assessment, medical history, allergy history and patient home medications list prior to surgery/procedure/anesthetic and documented any changes. Performed airway and anesthesia risk assessments. Anesthesia Type Anesthesia Type: General (see written pre anesthesia record for full assessment) and Block (see written pre anesthesia record for full assessment) Anesthesia Focused Assessment* Airway Assessment Mouth opens: >3 cm Mallampati Score: II Focused Labs Anesthesia Preop lab: CBC WBC 7.8 K/mm3 (4.4-11.0) 02/11/24 11:25 RBC 4.60 M/mm3 (4.2-5.4) 02/11/24 11:25 Hgb 13.7 g/dL (12.0-15.0) 02/11/24 11:25 Hct 42.7 % (37-47) 02/11/24 11:25 Plt Count 219 K/mm3 (150-450) 02/11/24 11:25 CHEMISTRY Potassium 4.2 mmol/L (3.5-5.1) 02/11/24 11:25 Sodium 140 mmol/L (136-145) 02/11/24 11:25 Magnesium 2.0 mg/dL (1.6-2.6) 02/11/24 11:25 BUN 17 mg/dL (7-18) 02/11/24 11:25 Creatinine 1.01 mg/dL (0.55-1.02) 02/11/24 11:25 Glucose 113 mg/dL (74-106) H 02/11/24 11:25 TSH 0.40 uIU/mL (0.358-3.74) 08/26/23 09:25 COAG PT 17.7 SECONDS (11.7-14.9) H 02/11/24 11:25 Pre-Assessment Diagnosis/Proposed Procedure Planned Operative Procedure(s): (R) ERAS Right Total Knee Replacement Robotic Arm Assisted Anesthesia History 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 When Was Last Pacemaker Check QUESTION #4 FULL TEXT: You/Your Family Experience fever (hyperthermia) with Anesthesia Last Oral Intake Last Oral intake: Last Oral Intake NPO since Meds taken in AM with sips of water? Meds patient instructed to take am of surgery PONV PONV - construction trench digger: PONV - construction trench digger Female Yes 02/07/24 12:26 HX of Motion Sickness No 02/07/24 12:26 HX of N/V After Surgery No 02/07/24 12:26 Non-Smoker Yes 02/07/24 12:26 Duration of Surgery greater Yes 02/07/24 12:26 than 60 minutes Number of Risk Factors 3 02/07/24 12:26 PONV Score Moderate Risk 02/07/24 12:26 Height & Weight Height & Weight: Anesthesia: Height & Weight Height 5 ft 7 in 02/18/24 11:06 Respiratory Assessment Respiratory Assessment - construction trench digger: Respiratory Tract Infection Hx - construction trench digger Hx Respiratory Tract Infection No 02/07/24 12:26 STOP Sleep Apnea STOP Sleep Apnea - construction trench digger: STOP Sleep Apnea - construction trench digger Hx Hypertension Yes: CONTROLLED ON MED- 02/07/24 12:26 WHITE COAT SYNDROME Hx Sleep Apnea Yes: NON-COMPLIANT 02/07/24 12:26 CPAP No 02/07/24 12:26 BIPAP No 02/07/24 12:26 Do you snore loudly (louder than talking or can be heard Do you often feel tired/ fatigued/ sleepy during daytime? Has anyone observed you stop breathing during sleep? STOP Results Positive 02/07/24 12:26 QUESTION #5 FULL TEXT : Do you snore loudly (louder than talking or can be heard through closed doors)? 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 Specify any problems Hx of Preganancy in last 3 No 02/07/24 12:26 Months Nurse Filling Out Transfusion VCHRISTIN 02/07/24 12:26 & Questions: Date: 02/07/24 02/07/24 12:26 Time: 12:27 02/07/24 12:26 Patient unable to answer at this time (ie. confused, unrespo /Reproduction History /Reproductive History - construction trench digger: /Reproductive Hx- construction trench digger Hx Now Gestational Age (in weeks): EDC: Hx Hx Para Hx Section SAB Active Medications Active Medications: Current Medications Generic Name Dose Route Start Last Admin Trade Name Freq PRN Reason Stop Dose Admin Acetaminophen 1,000 mg 02/22/24 10:45 Acetaminophen 500 Mg Tablet PO 02/22/24 10:46 X1 ONE Celecoxib 400 mg 02/22/24 10:45 Celecoxib 200 Mg Capsule PO 02/22/24 10:46 X1 ONE Dexamethasone Sodium Phosphate 10 mg 02/22/24 10:45 Dexamethasone 10 Mg/Ml Vial IV 02/22/24 10:46 X1 ONE Gabapentin 600 mg 02/22/24 10:45 Gabapentin 600 Mg Tablet PO 02/22/24 10:46 X1 ONE Cefazolin Sodium 2 gm/ Sodium 110 mls @ 150 mls/hr 02/22/24 10:45 Chloride IV 02/22/24 11:28 PREOP ONE Tranexamic Acid 1,000 mg/ 110 mls @ 660 mls/hr 02/22/24 10:45 Sodium Chloride IV 02/22/24 10:54 X1 ONE Tranexamic Acid 1,000 mg/ 110 mls @ 660 mls/hr 02/22/24 10:45 Sodium Chloride IV 02/22/24 10:54 X1 ONE Lactated Ringer's 1,000 mls @ 125 mls/hr 02/22/24 10:45 IV 02/22/24 18:44 .Q8H JESÚS Magnesium Sulfate 1 gm/ 102 mls @ 408 mls/hr 02/22/24 10:45 Dextrose IV 02/22/24 10:59 X1 ONE Lactated Ringer's 1,000 mls @ 15 mls/hr 02/22/24 09:00 IV .Q48H JESÚS Insulin Human Lispro 1 - 6 unit 02/22/24 10:45 Insulin Lispro 100 Unit/Ml Insuln.Pen SC Q4H PRN PRN BG>/= 180, SEE PROTOCOL Protocol Scopolamine HBr 1 patch 02/22/24 10:45 Scopolamine 1mg/72hr Patch TD 02/22/24 10:46 X1 ONE PFSH Medical History Loose, teeth Wears glasses Post-menopausal Ambulates with cane Fatty liver Anemia Excessive bleeding Back pain Sleep apnea Leg cramps History of pain when walking History of echocardiogram History of stress test Hypertension Cardiology follow-up encounter History of CHF (congestive heart failure) History of atrial fibrillation UTI (urinary tract infection) Malaise and fatigue Cervical radiculopathy Foot drop, right Right knee pain Health care maintenance Lumbar radiculopathy History of kidney stones Atrial fibrillation with rapid ventricular response (08/01/21) HFrEF (heart failure with reduced ejection fraction) Hyperlipidemia Kidney stones Former smoker Migraines COVID Osteoarthritis (arthritis due to wear and tear of joints) Arthritis Home Medications ?Medication ?Instructions ?Recorded ?Last Taken ?Type Handicap Placard #1 ea 09/01/21 Unknown Rx miconazole nitrate 2 % topical 1 applic topical BID PRN skin 02/03/22 Unknown History powder acetaminophen 500 mg tablet 1,000 mg PO TID pain 03/18/22 02/21/24 21:17 History tramadol 50 mg tablet 50 mg PO TID PRN pain #21 tabs 03/26/23 Unknown Rx apixaban 5 mg tablet (Eliquis) 5 mg PO BID BLOOD THINNER #60 tabs 06/29/23 02/18/24 Rx sacubitril 24 mg-valsartan 26 mg 1 tab PO BID HEART #60 tabs 06/29/23 02/22/24 06:00 Rx tablet (Entresto) metoprolol tartrate 25 mg tablet 50 mg PO BID BP 10/11/23 02/22/24 06:00 History Allergy/AdvReac Type Severity Reaction Status Date / Time piperacillin (From Zosyn) Allergy Rash Verified 02/22/24 09:16 tazobactam (From Zosyn) Allergy Rash Verified 02/22/24 09:16 amiodarone AdvReac Intermediate Lightheaded, Verified 02/22/24 09:16 feeling of impending doom diltiazem AdvReac Mild edema Verified 02/22/24 09:16 Family History Father CVA (cerebral vascular accident) Colon cancer Surgical History History of tooth extraction History of total right hip replacement Hx of surgical procedure History of cardiac radiofrequency ablation (RFA) (03/30/23) Hx of cardiac catheterization (~10/27/22) History of cardioversion (01/08/22) History of laminectomy (~2015) History of total left knee replacement H/O total hip arthroplasty Social History Smoking Status: Former smoker how long ago did patient quit smokin years ago alcohol intake: never substance use type: does not use caffeine: Yes Type: coffee Number of servings: 1 Review of Systems (Anesthesia) ROS Narrative System reviewed and no additional complaints, except as documented.
[2024-02-22 09:48] LABS: Bedside Glucose 120 mg/dL (74-106)
[2024-02-22] MEDS: Magnesium 1 GM over 15 mins IV (10:05)
[2024-02-22] MEDS: Celecoxib 200 MG Capsule 400 MG PO (10:08)
[2024-02-22] MEDS: Lactated Ringers 1,000 ML 15 ML IV (10:09)
[2024-02-22] MEDS: Scopolamine 1mg/72hr Patch 1 PATCH TD (10:09)
[2024-02-22] MEDS: Acetaminophen 500 MG Tablet 1000 MG PO ×2 (10:10→17:19)
[2024-02-22] MEDS: Cefazolin 2 GM in 0.9% Normal Saline (100mL Bag) 100 ML IV ×3 (10:36→22:12)
[2024-02-22] MEDS: TXA 1000mg in NS100 100ml (IVPB at Incision) 660 MG IV (10:45)
[2024-02-22] MEDS: dexAMETHasone 10 MG/ML Vial IV (10:48)
[2024-02-22] MEDS: TXA 1000mg in NS100 100ml (IVPB at Closure) 660 MG IV (11:16)
[2024-02-22] MEDS: Epinephrine (1 mg/ml) 1 MG/ML VIAL (12:34)
[2024-02-22] MEDS: Bupivacaine 0.5% PF 10 ML VIAL (12:34)
[2024-02-22] MEDS: dexAMETHasone 4 MG/ML Vial (12:34)
[2024-02-22] MEDS: 0.9% Normal Saline (Pres. free 10 ML Vial (12:34)
--- NOTE | 2024-02-22 13:14 | PCM.HP.BLA ---
History and Physical Date of Admission: 02/22/24 [facility] [address] [place] [address] OFFICE VISIT Date of Service: 02/11/24 MR#: [id number] Acct: [id number] Name: BEULAH MCPHERSON Rep #: [id number] : 1955 Provider: Dr. Glen Miguel DO Age/Sex: 68/F Location: [facility] [place] Status: Signed Intake Vital Signs 11/26/2407:00 Height 5 ft 7 in Weight: 238 lb BMI 37.3 BP 142/69 H Blood Pressure Location Rt brachial Position Sitting Respiration 14 Pulse 55 L Pulse Source Monitor Temp 98.0 F Pulse Oximetry (%) 97 Oxygen Delivery Method room air Intake Visit Reasons: right knee Chief Complaint: GERARD Allergies piperacillin (From Zosyn) Allergy (Verified 02/11/24 10:36) Rashtazobactam (From Zosyn) Allergy (Verified 02/11/24 10:36) Rashamiodarone Adverse Reaction (Intermediate, Verified 02/11/24 10:36) Lightheaded, feeling of impending doomdiltiazem Adverse Reaction (Mild, Verified 02/11/24 10:36) edema Have you fallen in the past year?: No PFSH Medical History Loose, teeth Wears glasses Post-menopausal Ambulates with cane Fatty liver Anemia Excessive bleeding Back pain Sleep apnea Leg cramps History of pain when walking History of echocardiogram History of stress test Hypertension Cardiology follow-up encounter History of CHF (congestive heart failure) History of atrial fibrillation UTI (urinary tract infection) Malaise and fatigue Cervical radiculopathy Foot drop, right Right knee pain Health care maintenance Lumbar radiculopathy History of kidney stones Atrial fibrillation with rapid ventricular response (08/01/21) HFrEF (heart failure with reduced ejection fraction) Hyperlipidemia Kidney stones Former smoker Migraines COVID Osteoarthritis (arthritis due to wear and tear of joints) Arthritis Surgical History History of total right hip replacement Hx of surgical procedure History of cardiac radiofrequency ablation (RFA) (03/30/23) Hx of cardiac catheterization (~10/27/22) History of cardioversion (01/08/22) History of laminectomy (~2015) History of total left knee replacement H/O total hip arthroplasty Family History Father CVA (cerebral vascular accident) Colon cancer Social History Smoking Status: Former smoker how long ago did patient quit smokin years ago alcohol intake: never substance use type: does not use caffeine: Yes Type: coffee Number of servings: 1 HPI right knee Details: This documentation accurately reflects the service provided and the decisions made by me, Dr. Glen Miguel, DO 02/11/24 0916. Part of today?s visit was documented by [ ], acting as scribe. BEULAH MCPHERSON is a 68 year old F here today for right knee iovera procedure In addition patient has history of bilateral total hip arthroplasty however her right hip has not felt right since surgery and she walks with a limp. Since this past Wednesday she has had increased right groin pain denies any fevers or chills. The right hip was replaced by Dr. Chatman 2009. She also has had lumbar surgery multilevel laminectomy and failed back syndrome and she has chronic numbness from her right knee to her foot and was diagnosed with a foot drop on EMG however she does not have significant weakness with plantarflexion or dorsiflexion. Ortho Exam General General: Yes no acute distress Neurologic: Yes alert and Yes oriented x3 Psychologic: Yes reasonable and appropriate Right Knee Skin/Wound: Yes CDI, No erythema, No ecchymosis and No swelling Knee ROM: Yes ROM-Extension -20 to 0 and Yes ROM-Flexion 0-140 (85) Examination: Yes Med jt line tenderness, Yes Lat jt line tenderness and Yes Crepitus Stability: NML: Anterior Drawer, NML: Posterior Drawer, NML: Valgus 0, NML: Valgus 30, NML: Varus 0 and NML: Varus 30 Patella Grind: Yes KNEE: crepitus with ROM. no numbness or tingling. Right Hip Skin: No Ecchymosis, No soft tissue swelling and No Erythema HIP: She does walk with a limp her posterior incision is nonconcerning appearing there is no erythema ecchymosis warmth. She does have a scar in her groin from previous surgery and femoral artery repair. Head: Normocephalic Atraumatic Chest: symmetrical rise, non-labored breathing, no audible wheeze Abdomen: no guarding, non-rigid Office Procedures Iovera Procedure Details:: Preoperative diagnosis :chronic knee pain Postoperative diagnosis: Same Procedure: Cryotherapy with Iovera device to anterior femoral cutaneous nerve and 2 branches of the infrapatellar saphenous nerve. ?Three nerves in total. Description of procedure: Patient was brought back to the procedure room the operative extremity was identified by both patient and physician. ?Entire extremity was cleaned with alcohol. ?The superior inferior and medial lateral borders of the patella were marked followed by the center of the patella. ?We then measured 12 cm proximal to this and with the knee in flexion marked the medial and lateral edges of the patella continuing proximally to give us our proximal treatment line.This was our treatment line for the anterior femoral cutaneous nerve. ?A second treatment line was made 5 cm medial to the inferior pole of the patella and 5 cm distally. ?The treatment lines were then prepped with Betadine and 1 last time with alcohol. ?Lidocaine 1% with epi was injected subcutaneously along the treatment lines. ?Using the Iovera device on the marked treatment lines device was activated allowing it to freeze and defrost with 1 minute cycles. Once all 3 nerve branches were treated across the 2 treatment lines patient was cleaned and a light dressing with 4 x 4 and Kristopher wrap was applied. ?Patient tolerated the procedure without complication. Supplemental Info 02/11/2024 x-ray right hip: Status post total hip arthroplasty there is no sign of hardware failure 06/09/2022 x-ray right knee: Severe end stage arthrosis [id number] there is lateral subluxation of the tibia joint space collapse large bone spurs multiple subchondral cystic changes femur and tibia subchondral Coding Level of Care Code Attention Clinical Geneticist Diagnoses Class 2 severe obesity due to excess calories with serious comorbidity and body mass index (BMI) of 37.0 to 37.9 in adult E66.01; Z68.37 Body mass index: BMI 37.0-37.9 Obesity classification: adult class 2 (BMI 35 - 39.9) Obesity type: due to excess calories Serious obesity comorbidity presence: with serious comorbidity Chronic pain of right knee M25.561; G89.29 Laterality: right Hip pain, right M25.551 Status post total replacement of right hip Z96.641 Laterality: right Assessment and Plan Assessment and Plan (1) Obesity: Status: Chronic Qualifiers: Body mass index: BMI 37.0-37.9 Obesity classification: adult class 2 (BMI 35 - 39.9) Obesity type: due to excess calories Serious obesity comorbidity presence: with serious comorbidity Qualified Code(s): E66.01 - Morbid (severe) obesity due to excess calories; Z68.37 - Body mass index [BMI] 37.0-37.9, adult (2) Knee pain, chronic: Status: Chronic Qualifiers: Laterality: right Qualified Code(s): M25.561 - Pain in right knee; G89.29 - Other chronic pain (3) Hip pain, right: Status: Acute (4) S/P total hip arthroplasty: Status: Acute Qualifiers: Laterality: right Qualified Code(s): Z96.641 - Presence of right artificial hip joint Orders: Orders HIP, UNI W/ Pelvis 2-3 Views Today Z96.641 - Presence of right artificial hip joint Iovera Today M17.11 - Unilateral primary osteoarthritis, right knee Plan Iovera procedure was performed today on her right knee. Her right hip is status post total hip arthroplasty [address] Chatman. She is complaining of increased groin pain she does have a history of a femoral artery repair after ablation for her A-fib developed femoral artery aneurysm requiring repair. We did x-ray the right hip today without concern Clinical Quality Measures Falls Risk Screening/Assistive Devices Have you fallen in the past year?: No 02/11/24 1039 <Electronically signed by Glen Miguel DO> Date Glen Miguel DO Cosigner Signature: Date (if applicable) CC: ~I have examined the patient and the H&P has been reviewed. There are no clinical changes since date of exam.
--- NOTE | 2024-02-22 13:16 | OP.PCM_ITS ---
Operative Report Date of Procedure: 02/22/24 Preoperative diagnosis: Right knee DJD Postoperative diagnosis: Same Procedure: Right total knee arthroplasty CT guided Robotic Assisted Implant: Rewey triathlon press fit, femoral component size 4, tibial baseplate size 5, asymmetric patella size 35, polyethylene X3 size 13 CS Anesthesia: General With adductor canal block Tourniquet time: 12 minutes at 250 mmHg Condition: Stable to PACU Estimated blood loss: 250 cc Cook Seafood Dionicio Parrish. My physician real estate executive assistant was a vital part of this case. He was important in appropriate retraction during the case, and protection of soft tissues during procedure. His intimate knowledge of the case and my steps aided in safe and expedient completion of the procedure as well as appropriate position of the extremity during the case. He was also vital in assisting with closure under my direct supervision. Indication for procedure: This is a 68-year-old female with long standing degenerative joint disease of the knee who has failed conservative treatment and wished to proceed with elective total knee arthroplasty. Risk benefits and alternatives were reviewed including; risk of bleeding, infection, nerve artery and tissue damage, continued pain, postoperative stiffness, venous thromboembolism, need for postoperative rehabilitation, mechanical feel to the knee, and expected postoperative course. The pre- operative CT and templating was performed with component sizing. Procedure: The patient was met in the preoperative holding area. The operative extremity was identified by both patient and physician and was marked. Patient was met by anesthesia. An adductor canal block was placed by anesthesia postoperatively the patient was brought back to the operating room on a wheeled cart and transferred to the operating table in the supine position. Anesthesia was started. A well-padded tourniquet was placed on the operative extremity. The patient was prepped and draped in the usual sterile fashion. A timeout was called to ensure the proper patient procedure and extremity were being contemplated. An esmarch was used to exsanguinate the extremity. The tourniquet was inflated. A 10 blade scalpel was used to make a midline incision down through the skin and subcutaneous tissue. Skin retractors placed. Bovie a nd Aquamantis were used to perform meticulous hemostasis. full-thickness flaps were elevated medial and lateral along the joint capsule. A deep blade scalpel was used to perform a medial parapatellar arthrotomy. The knee was brought to full extension. A bovie was used to release the soft tissues off the most proximal aspect of the medial tibial plateau, a three-quarter inch curved osteotome was also used in this process. The infrapatellar fat pad was excised. The suprapatellar fat pad was excised partially anteriorolateraly and portion the anterioromedial pad was elevated from the femur. At this point our intra- articular femoral array was placed at a 45 degree angle proximal and posterior to the medial epicondyle. femoral checkpoint was placed at this time. Our tibial array was placed partially intra incisional 1 stab incision was made for the inferior pin with a 15 blade scaple, and pins were placed and attached to the tibial array , tibial checkpoint was placed in the proximal tibial metaphysis. Tourniquet was let down. At this point registration durán were taken throughout the knee . Once the knee was registered we then tensioned the medial and lateral ligaments in extension and 90 degrees of flexion. We then used these numbers to adjust our components within parameters to balance the knee in both flexion and extension once this was done on our monitor we then proceeded with using the robotic arm to make our tibial plateau cut, anterior and posterior chamfer and distal femur cuts. we removed the cut fragments with the use of a bovie and David, we did use a lamina powder room attendant to insure we visualized and removed all posterior osteophytes and at this time also used the Aquamantis on the posterior joint capsule. we then trialed and achieved the desired plan with a well-balanced knee. we used the green probe to alexis the corresponding tibial rotation based on our CT template. Lug holes were drilled in the femur the tibia preparation was completed with the appropriate sized base plate pinned based on previous rotation alexis. An appropriate sized fin punch was used on the tibia and 4 corner drill was used for the press fit component and the patella was prepared by first using a caliper to ensure sufficient bone stock and a patellar reamer to remove the desired amount of bone. lug holes drilled for an asymmetric poly. We then brought the knee through range of motion with excellent patellar tracking. We thoroughly irrigated the knee. Trial components were removed a posterior capsular injection was preformed with our standard cocktail. In addition the aqua Mantis was also used to aid in hemostasis. Betadine rinse was allowed to sit and washed out completely. The femoral handle was placed on the femoral component and then it was realized there was hardened cement on the insertion handle, the cement had made it through sterilization process and was not loose. The handle was removed from the table however for precautionary reasons we set the implant and Aricept for 5 minutes changed gloves and continued with the case. The components were press- fit into place. Aricept rinse was then used followed by several more liters of irrigation after it was allowed to sit. The joint capsule was closed with #1 Ethibond [id number]'s in the upper part of the arthrotomy and #1 Vicryl in the lower part of the arthrotomy. , Followed by 2-0 Vicryl in the subcutaneous tissues with dagoberto in the skin. Arrays and checkpoints were removed prior to closure all counts were correct stab incisions were closed with a staple standard dressing in the form of Mepilex AG for the main incision and a small Mepilex over the pin holes. Thigh-high ELOISA hose applied over top of dressing. Patient tolerated the procedure well and was directed to PACU in stable condition .
--- NOTE | 2024-02-22 13:31 | PCM.POST.ANE ---
Anesthesia: Postop Eval I Current Vital Signs Temperature: 96.9 F Pulse Rate: 64 Blood Pressure: 92/61 Respiratory Rate: 14 Pulse Ox: 96 Oxygen Delivery Method: Nasal Cannula Oxygen Flow Rate (L/min): 4 Fraction of Inspired Oxygen (FIO2): 36 EtCo2 (Normal 35-45 , high quality CPR 10-20 & ROSC>/=40mmHg): 34 Assessment Airway patent: Yes Spontaneous unlabored respirations: Yes Mental status: Awake and Calm nausea: No Vomiting: No Anesthesia Complication: No Fluid Hydration Crystalloid volume administer (ml): 1,400 Total IV fluid infused: 1,400 Progress Note Anesthesia document: Postop Eval 1 completed: Yes
--- NOTE | 2024-02-22 13:35 | RAD_ITS ---
STUDY: X-RAY - RIGHT KNEE REASON FOR EXAM: Female, 68 years old. post op -- AP and Lateral xray of operative knee in PACU TECHNIQUE: 2 view(s) of the knee. COMPARISON: None. Findings: There is a recent total knee arthroplasty. The femoral and tibial components appear in satisfactory position. There has been patellar resurfacing. There is soft tissue air consistent with recent surgery. The visualized femoral, tibial, and fibular shafts are unremarkable. RAD/Knee 1 or 2 Views IMPRESSION: Satisfactory appearance of a total knee arthroplasty. Electronically Signed: Hernan Carreno MD at 22:26 EDT ,
[2024-02-22] MEDS: Ketorolac 15 MG/ML Vial IV ×2 (14:35→23:22)
--- NOTE | 2024-02-22 14:43 | POSTOPAN2_ITS ---
Anesthesia Postop Eval I Sum Postop Eval Completion status Anesthesia document: Postop Eval 1 completed: Yes Anesthesia Postop Eval I Summary Anesthesia Postop Eval I Summary: Anesthesia Postop Eval I: Assessment Summary Airway patent Yes 02/22/24 13:32 PROFESSIONAL GOLF TOURNAMENT PLAYER.[email or web address] Spontaneous unlabored Yes 02/22/24 13:32 PROFESSIONAL GOLF TOURNAMENT PLAYER.GDOTT respirations Mental status Awake,Calm 02/22/24 13:32 PROFESSIONAL GOLF TOURNAMENT PLAYER.GDOTT nausea No 02/22/24 13:32 PROFESSIONAL GOLF TOURNAMENT PLAYER.GDOTT Vomiting No 02/22/24 13:32 PROFESSIONAL GOLF TOURNAMENT PLAYER.GDOTT Anesthesia Postop Eval I: Fluid Summary Crystalloid volume administer 1,400 02/22/24 13:32 PROFESSIONAL GOLF TOURNAMENT PLAYER.GDOTT (ml) Colloids volume administered ( ml) Blood Product volume administered (ml) Total IV fluid infused 1,400 02/22/24 13:32 PROFESSIONAL GOLF TOURNAMENT PLAYER.GDOTT Anesthesia Postop Eval I: Summary Notes Anesthesia Complication No 02/22/24 13:32 PROFESSIONAL GOLF TOURNAMENT PLAYER.GDOTT Anesthesia Complication Comment: Post-operative progress note Anesthesia: Postop Eval II Evaluation Mental status: Awake and Calm Pain Level: 2 nausea: No Vomiting: No Complications Anesthesia Complication: No
--- NOTE | 2024-02-22 14:43 | PCM.POSTANE2 ---
Anesthesia Postop Eval I Sum Postop Eval Completion status Anesthesia document: Postop Eval 1 completed: Yes Anesthesia Postop Eval I Summary Anesthesia Postop Eval I Summary: Anesthesia Postop Eval I: Assessment Summary Airway patent Yes 02/22/24 13:32 ORCHARD MANAGER.[email or web address] Spontaneous unlabored Yes 02/22/24 13:32 ORCHARD MANAGER.GDOTT respirations Mental status Awake,Calm 02/22/24 13:32 ORCHARD MANAGER.GDOTT nausea No 02/22/24 13:32 ORCHARD MANAGER.GDOTT Vomiting No 02/22/24 13:32 ORCHARD MANAGER.GDOTT Anesthesia Postop Eval I: Fluid Summary Crystalloid volume administer 1,400 02/22/24 13:32 ORCHARD MANAGER.GDOTT (ml) Colloids volume administered ( ml) Blood Product volume administered (ml) Total IV fluid infused 1,400 02/22/24 13:32 ORCHARD MANAGER.GDOTT Anesthesia Postop Eval I: Summary Notes Anesthesia Complication No 02/22/24 13:32 ORCHARD MANAGER.GDOTT Anesthesia Complication Comment: Post-operative progress note Anesthesia: Postop Eval II Evaluation Mental status: Awake and Calm Pain Level: 2 nausea: No Vomiting: No Complications Anesthesia Complication: No
[2024-02-22] MEDS: 0.9% Normal Saline (1000mL) 1,000 ML 125 ML IV (16:14)
[2024-02-22] MEDS: SACUBITRIL/VALSARTAN 24/26 MG TABLET 1 EACH PO (20:05)
[2024-02-22] MEDS: Metoprolol Tartrate 50 MG Tablet PO (20:05)
[2024-02-22] MEDS: Senna/Docusate Sodium 1 Tablet 2 TABLET PO (20:05)
[2024-02-22] MEDS: oxyCODONE 5 MG Tablet PO (21:26)
--- NOTE | 2024-02-23 | PAT_PTH ---
PATIENT: BEULAH MCPHERSON LOC: [facility]3 U#:[id number] AGE/SX: 68/F [place] [facility] [place]: Dr. Glen Miguel DO : 1955 BED: 1 DIS: 02/23/2024 SPEC #: [id number] RECD: 02/23/24 12:19 STATUS: YECENIA GARZAMaira #: [id number] VIKAS: 02/23/24 00:[address]: Glen Miguel DEPT: SURGICAL PATHOLOGY RECD BY: Raoul Cronin ENTERED: 02/23/24 12:19 SP TYPE: PATELLA OTHR DR: Dr. Yesi Clinton MD Tissues: Patella, NOS Procedures: Surgery Specimen Level III HEADER OPERATION: Right total knee replacement robotic arm assist PRE-OP DIAGNOSIS: Chronic right knee pain TISSUE SUBMITTED: Right patella and knee bones MICROSCOPIC DIAGNOSIS Bone and tissue of right knee, total knee resection: Severe degenerative joint disease. AM: 02/28/2024 MICROSCOPIC DESCRIPTION Slides are reviewed. GROSS DESCRIPTION Received is one container designated bone and soft tissue right knee. The specimen consists of multiple fragments of rojas-yellow bone measuring in aggregate 11.0 x 11.0 x 4.0 cm. No soft tissue is identified A number of bony fragments contain articular surfaces consistent with tibial plateau and femoral condyle and displaying prominent osteophyte formation, eburnation and bone erosion. Periodontist sections are submitted in one cassette after decalcification/ SJ. 02/23/2024 TC:5 CPT: 43608, 39352
[2024-02-23] MEDS: 0.9% Normal Saline (1000mL) 1,000 ML 125 ML IV (00:59)
[2024-02-23] MEDS: Acetaminophen 500 MG Tablet 1000 MG PO ×2 (01:00→08:21)
[2024-02-23 04:00] VITALS: BP 108/49; PULSE 68; RESP 18; TEMP 36.6; O2SAT 98
[2024-02-23] MEDS: Cefazolin 2 GM in 0.9% Normal Saline (100mL Bag) 100 ML IV (04:30)
[2024-02-23] MEDS: APIXABAN 2.5 MG TABLET (WCH) PO (06:42)
[2024-02-23 07:05] LABS: Hematocrit 30.6 % (37-47); Hemoglobin 9.8 g/dL (12.0-15.0); Mean Corpuscular Hgb 30.3 pg (27.0-32.0); Mean Corpuscular Volume 94.7 fL (81-99); Mean Platelet Vol. 9.6 fl (6.2-12.0); Platelet Count 181 K/mm3 (150-450); RBC Distribution Width CV 13.2 % (11.6-14.6); RBC Distribution Width SD 45.6 fl (35.1-43.9); Red Blood Count 3.23 M/mm3 (4.2-5.4); White Blood Count 11.7 K/mm3 (4.4-11.0)
[2024-02-23 07:33] LABS: Anion Gap 6 (5-15); BUN 19 mg/dL (7-18); BUN/Creat Ratio 17.4 RATIO (10-20); Calcium,Total 8.2 mg/dL (8.5-10.1); Chloride 109 mmol/L (98-107); Creatinine, Serum 1.09 mg/dL (0.55-1.02); EST Glomerular Filtration Rate 53 mL/min (>60); Est Glom Filt Rate - Afr Amer 64 mL/min (>60); Estimated Creatinine Clearance 59.56 ml/min; Glucose 145 mg/dL (74-106); Potassium 4.6 mmol/L (3.5-5.1); Sodium Level 138 mmol/L (136-145)
[2024-02-23] MEDS: SACUBITRIL/VALSARTAN 24/26 MG TABLET 1 EACH PO (08:20)
[2024-02-23] MEDS: Senna/Docusate Sodium 1 Tablet 2 TABLET PO (08:21)
[2024-02-23 08:26] VITALS: BP 100/68; PULSE 68
[2024-02-23] MEDS: Metoprolol Tartrate 50 MG Tablet PO (08:26)
[2024-02-23] MEDS: oxyCODONE 5 MG Tablet PO ×2 (09:22→14:13)
--- NOTE | 2024-02-23 09:45 | CASEMGMT ---
BOB GUADARRAMA Assessment: Face to Face with pt for initial transition planning/care coordination assessment. RN CHIARA introduced self and role at [facility], pt voices understanding and consents to assessment. Pt is A&O x4 and answers all questions appropriately at this time. Pt sitting up in chair in no distress. Care providers, pharmacy, and demographics verified/updated. Strata: 1 Admitting Dx: ERAS R total knee replacement PCP: [facility] Specialists: Albert, Vascular; Juan Carlos, Manager Pharmaceutical; Lamont, Orthopedic Preferred Pharmacy: [facility]. Insurance: [employer]. Prescription Benefit: yes LNOK: Maureen, FO; Erinn, Aunt. Living Arrangements: Pt lives alone, aunt staying with her until March 07. ADLs: Pt states I with ADLs and IADLs prior to surgery. Transportation: Pt drives self and denies concerns with transportation. Aunt staying with her and able to transport home and take to appointments. DME: Cane, walker, rollator, Comfort Ht commode, stair chair, walk in shower with shower chair and grab bars. HHC/SNF: Denies Hx of SNF, previously used [facility]. Pt states has a F/U appointment schedule with Dr. Miguel 03/06. Pt states no concerns with going home at time of dc. Pt states no further concerns/needs. CM to follow. Advised pt to ask CM if any further question/concerns/needs arise, voices understanding. Pt Goal: Home Plan: Home with family support. OP PT scheduled for 02/25/24 Fabrizio ROJAS CM
[2024-02-23 10:36] VITALS: BP 100/68; PULSE 68; RESP 16; TEMP 36.8; O2SAT 100
--- NOTE | 2024-02-23 11:59 | PN.ORTHO_ITS ---
Subjective Subjective Seen and examined doing well pain controlled but present. No fevers chills nausea vomiting shortness of breath or chest pain. Does complain of some buckling which was present preoperatively. Objective Data Objective Data Vital Signs: Vital Signs Temp Pulse Resp BP Pulse Ox O2 Del Method O2 Flow Rate 98.3 F 68 16 100/68 100 Room Air 4 02/23/24 10:36 02/23/24 10:36 02/23/24 10:36 02/23/24 10:36 02/23/24 10:36 02/23/24 10:36 02/22/24 14:58 FiO2 36 02/22/24 13:32 Oxygen Flow Rate (L/min) 4 Oxygen Delivery Method Room Air Weight: 229 lb 4.492 oz Body Mass Index (BMI) 35.9 Intake & Output: Intake and Output for Last 24 Hours 02/21/24 02/22/24 02/23/24 23:59 23:59 23:59 Intake Total 1799.5 / 1799.5 2617.92 / 2617.92 Output Total 900 / 900 Balance 1799.5 / 1799.5 1717.92 / 1717.92 Lab / Micro Data 02/23/24 05:29 02/23/24 05:29 Labs: Laboratory Results - last 24 hr 02/23/24 05:29: WBC 11.7 H, RBC 3.23 L, Hgb 9.8 L, Hct 30.6 L, MCV 94.7, MCH 30.3, MCHC 32.0, RDW Std Deviation 45.6 H, RDW Coeff of Kurtis 13.2, Plt Count 181, MPV 9.6, Sodium 138, Potassium 4.6, Chloride 109 H, Carbon Dioxide 23.0, Anion Gap 6, BUN 19 H, Creatinine 1.09 H, Estim Creat Clear Calc 59.56, Est GFR (MDRD) Af Amer 64, Est GFR (MDRD) Non-Af 53 L, BUN/Creatinine Ratio 17.4, Glucose 145 H , Calcium 8.2 L Micro: Microbiology 02/11/24 11:25 Swab (Method) Nasal Screen MRSA/MSSA - Final Radiography Diagnostic Testing: Radiology Impression Knee X-Ray 02/22/24 13:35 IMPRESSION: Satisfactory appearance of a total knee arthroplasty. Electronically Signed: Hernan Carreno MD at 22:26 EDT , Physical Exam Const alert, oriented x3 and no apparent distress General Appearance: cooperative Extremity Extremity Narrative: Left knee dressing clean dry intact compartment soft neurovascular intact Assessment & Plan Assessment/Plan (1) S/P total knee arthroplasty: PLAN: Plan Postop day #1 right total knee arthroplasty PT OT weightbearing as tolerated DVT prophylaxis SCDs ELOISA grande Eliquis can resume 5 mg preoperative dose Patient requesting to go home Will have physical therapy perform second round and then discharged home Follow-up in the office 2 weeks Dressing to remain on and undisturbed until Wednesday. Pain control oxycodone and Tylenol
--- NOTE | 2024-02-23 12:03 | DCINST_ITS ---
Discharge Instructions Diet Discharge Diet: No restrictions Dressing / Incision Call your doctor if you observe: Shortness of breath and Chest pain Additional Dressing/Incision Instructions:: Ice and elevate lower extremities 2 weeks while not ambulating. Ambulation is encouraged. Weight bearing as tolerated. Use assistive devise for stability. Encourage FULL knee extension and flexion 1 time EVERY time you get up and down and MULTIPLE times per day. No showering until 72 hours after surgery. Begin showering postop day #3. Remove the dressing prior to shower and gently wash with warm water and antibacterial soap then pat dry and place abdominal pad (or plain gauze) and ELOISA hose over top. This is to be done daily. Do not submerge for 3 weeks. If not showering daily after the initial 72 hours then you must clean incision and change dressing daily. Do not allow animals near the incision area. Keep clean. Follow anti-coagulation recommendations as prescribed. Do not take any NSAIDs while on blood thinner. Do not take any additional narcotic pain medication other than what was prescribed on your surgery day without discussing with physician. Narcotic medication can be addictive. Do not drink alcohol while taking narcotics. Supplement narcotic prescription with acetaminophen 1000 mg 4 times a day. Start physical therapy. If you are not currently scheduled for physical therapy or you are unsure of appointment time please call office [facility] to arrange. Call Dr. Miguel with any concerns. Follow Up Care Please Follow Up With: Glen Miguel DO When: 2 weeks Test Results: Test results from this visit will be discussed in further detail at your follow- up appointment, if applicable. Discharge Plan Admission Admit Date/Time: 02/22/24 13:22 Primary Reason for Your Visit: Right total knee arthroplasty Attending Provider: Glen Miguel Primary Care Provider: Yesi Clinton Discharge Orders/Prescriptions Prescriptions: New acetaminophen 500 mg Tablet 1,000 mg PO Q6H Qty: 100 0RF oxycodone 5 mg Tablet 5 - 10 mg PO Q4H PRN PRN (Reason: Pain Score 4-10) 7 Days Qty: 60 0RF Continued miconazole nitrate 2 % powder 1 applic topical BID PRN (Reason: skin) (DME) Handicap Placard See Rx Instructions .ROUTE .MEDSUPPLY Qty: 1 0RF Rx Instructions: As directed, length of time 3 years metoprolol tartrate 25 mg tablet 50 mg PO BID Rx Instructions: Will take 50 mg instead of 25 mg if BP is up Eliquis 5 mg tablet 5 mg PO BID Qty: 60 11RF Patient Comments: LAST DOSE 4 DAYS PRIOR TO OR, LAST DOSE 02/16 Entresto 24-26 mg tablet 1 tab PO BID Qty: 60 11RF No Action acetaminophen 500 mg tablet 1,000 mg PO TID tramadol 50 mg tablet 50 mg PO TID PRN (Reason: pain) Qty: 21 0RF Referrals / Follow Up: Yesi Clinton MD [Primary Care Provider] - Disposition Disposition (needs filled in before D/C Order can be placed): Home, Self Care
--- NOTE | 2024-02-23 12:06 | DS.PCM_ITS ---
Providers Date of Admission: 02/22/24 Primary Care Physician: Dr. Yesi Clinton MD Reason For Visit: ERAS Right Total Knee Replacement R Diagnosis Discharge Diagnosis (1) S/P total knee arthroplasty: Status: Acute Code(s): Z96.659 - Presence of unspecified artificial knee joint Plan Postop day #1 right total knee arthroplasty PT OT weightbearing as tolerated DVT prophylaxis SCDs ELOISA hose Eliquis can resume 5 mg preoperative dose Patient requesting to go home Will have physical therapy perform second round and then discharged home Follow-up in the office 2 weeks Dressing to remain on and undisturbed until Wednesday. Pain control oxycodone and Tylenol Medications at Discharge Home Medications Handicap Placard #1 ea 09/01/21 miconazole nitrate 2 % topical powder 1 applic topical BID PRN skin 02/03/22 acetaminophen 500 mg tablet 1,000 mg PO TID pain 03/18/22 tramadol 50 mg tablet 50 mg PO TID PRN pain #21 tabs 03/26/23 apixaban 5 mg tablet (Eliquis) 5 mg PO BID BLOOD THINNER #60 tabs 06/29/23 sacubitril 24 mg-valsartan 26 mg tablet (Entresto) 1 tab PO BID HEART #60 tabs 06/29/23 metoprolol tartrate 25 mg tablet 50 mg PO BID BP 10/11/23 acetaminophen 500 mg tablet 1,000 mg (2 x 500 mg) PO Q6H #100 tabs 02/23/24 oxycodone 5 mg tablet 5 - 10 mg (1 - 2 x 5 mg) PO Q4H PRN PRN Pain Score 4-10 7 days #60 tabs 02/23/24 Hospital Course Operations total knee replacement Summary of Care Provided Hospital Course: Who has long history of 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 Patient underwent the aformentioned procedure on the admission date without any intraoperative complications. She did have a severe knee arthrosis with limited flexion . patient did receive pre-and postoperative antibiotics which were discontinued within 23 hours postoperatively. Patient did receive adductor canal block postoperatively. pain was controlled with IV and transition to p.o. pain medication Patient will be discharged home with oxycodone and will continue Tylenol as well. Patient had minimal intraoperative blood loss and 2gm tranexamic acid was administered there was no need for postoperative blood transfusion Patients vital signs remained stable. Patient was started on both mechanical and chemical DVT per prophylaxis postoperatively in the form of SCDs ELOISA hose and [Eliquis she will resume her preoperative dose upon discharge]. thigh high eloisa hose placed over top of the meplix silver dressing. This should be removed 72 hrs post operatively and showering begun daily at that time with warm water and antibacterial soap. not to submerge for 3 weeks. To change dressing daily after first dressing change. Patient will follow-up in the office in 2 weeks. No intrahospital complications. Weight / BMI Weight Weight: 229 lb 4.492 oz Body Mass Index (BMI) 35.9 ABG / Lab / Microbiology Data 02/23/24 05:29 02/23/24 05:29 Laboratory: Laboratory Results - last 24 hr 02/23/24 05:29: WBC 11.7 H, RBC 3.23 L, Hgb 9.8 L, Hct 30.6 L, MCV 94.7, MCH 30.3, MCHC 32.0, RDW Std Deviation 45.6 H, RDW Coeff of Kurtis 13.2, Plt Count 181, MPV 9.6, Sodium 138, Potassium 4.6, Chloride 109 H, Carbon Dioxide 23.0, Anion Gap 6, BUN 19 H, Creatinine 1.09 H, Estim Creat Clear Calc 59.56, Est GFR (MDRD) Af Amer 64, Est GFR (MDRD) Non-Af 53 L, BUN/Creatinine Ratio 17.4, Glucose 145 H , Calcium 8.2 L Microbiology: Microbiology 02/11/24 11:25 Swab (Method) Nasal Screen MRSA/MSSA - Final Radiography Diagnostic Testing: Radiology Impression Knee X-Ray 02/22/24 13:35 IMPRESSION: Satisfactory appearance of a total knee arthroplasty. Electronically Signed: Hernan Carreno MD at 22:26 EDT , D/C Instructions Discharge Diet: No restrictions Call your doctor if you observe: Shortness of breath and Chest pain Additional Dressing/Incision Instructions: Ice and elevate lower extremities 2 weeks while not ambulating. Ambulation is encouraged. Weight bearing as tolerated. Use assistive devise for stability. Encourage FULL knee extension and flexion 1 time EVERY time you get up and down and MULTIPLE times per day. No showering until 72 hours after surgery. Begin showering postop day #3. Remove the dressing prior to shower and gently wash with warm water and antibacterial soap then pat dry and place abdominal pad (or plain gauze) and ELOISA hose over top. This is to be done daily. Do not submerge for 3 weeks. If not showering daily after the initial 72 hours then you must clean incision and change dressing daily. Do not allow animals near the incision area. Keep clean. Follow anti-coagulation recommendations as prescribed. Do not take any NSAIDs while on blood thinner. Do not take any additional narcotic pain medication other than what was prescribed on your surgery day without discussing with physician. Narcotic medication can be addictive. Do not drink alcohol while taking narcotics. Supplement narcotic prescription with acetaminophen 1000 mg 4 times a day. Start physical therapy. If you are not currently scheduled for physical therapy or you are unsure of appointment time please call office [facility] to arrange. Call Dr. Miguel with any concerns. Please Follow Up With: Glen Miguel DO When: 2 weeks Meaningful Use Info Meaningful Use Meaningful Use Diagnoses (Choose all that apply): None applicable Ischemic Stroke Statin Dosing Therapy Reference: STATIN DOSE THERAPY REFERENCE: * Patients > 75 years receive moderate or high dose statin therapy. * Patients 75 years or YOUNGER should receive HIGH intensity statin dose unless contraindicated. You will be required to document reason for non-treatment if statin daily dose does not meet guidelines. HIGH DOSE STATIN THERAPY DAILY Atorvastatin > than or = to 40 mg Rosuvastatin > than or = to 20 mg Amlodipine + Atorvastatin > than or = to 2.5/40 mg Ezetimibe + Simvastatin 10/80 mg Simvastatin 80mg Discharge Plan Admission Admit Date/Time: 02/22/24 13:22 Primary Reason for Your Visit: Right total knee arthroplasty Attending Provider: Glen Miguel Primary Care Provider: Yesi Clinton Discharge Orders/Prescriptions Prescriptions: New acetaminophen 500 mg Tablet 1,000 mg PO Q6H Qty: 100 0RF oxycodone 5 mg Tablet 5 - 10 mg PO Q4H PRN PRN (Reason: Pain Score 4-10) 7 Days Qty: 60 0RF Continued miconazole nitrate 2 % powder 1 applic topical BID PRN (Reason: skin) (DME) Handicap Placard See Rx Instructions .ROUTE .MEDSUPPLY Qty: 1 0RF Rx Instructions: As directed, length of time 3 years metoprolol tartrate 25 mg tablet 50 mg PO BID Rx Instructions: Will take 50 mg instead of 25 mg if BP is up Eliquis 5 mg tablet 5 mg PO BID Qty: 60 11RF Patient Comments: LAST DOSE 4 DAYS PRIOR TO OR, LAST DOSE 02/16 Entresto 24-26 mg tablet 1 tab PO BID Qty: 60 11RF No Action acetaminophen 500 mg tablet 1,000 mg PO TID tramadol 50 mg tablet 50 mg PO TID PRN (Reason: pain) Qty: 21 0RF Referrals / Follow Up: Yesi Clinton MD [Primary Care Provider] - Disposition Disposition (needs filled in before D/C Order can be placed): Home, Self Care
[2024-02-23 14:30] VITALS: BP 98/42; PULSE 73; RESP 18; TEMP 36.8; O2SAT 99
== END 2024-02-23 14:41 | disposition home or self-care (01) | DRG 470 ==
PROVIDERS: Admitting Provider Orthopaedic Surgery; PCP Internal Medicine; Referring Provider Orthopaedic Surgery; Visit Provider Orthopaedic Surgery
PROC: 0SRC0JZ Replacement of Right Knee Joint with Synthetic Substitute, Open Approach (ICD-10-PCS; CPT 27447; principal; 2024-02-22 10:15)
DX: M17.11 Unilateral primary osteoarthritis, right knee (principal); I50.22 Chronic systolic (congestive) heart failure; I11.0 Hypertensive heart disease with heart failure; E66.01 Morbid (severe) obesity due to excess calories; I48.0 Paroxysmal atrial fibrillation; Z68.37 Body mass index [BMI] 37.0-37.9, adult; G89.29 Other chronic pain; Z96.641 Presence of right artificial hip joint; Z96.652 Presence of left artificial knee joint; Z79.01 Long term (current) use of anticoagulants; Z79.899 Other long term (current) drug therapy; Z86.16 Personal history of COVID-19; Z87.891 Personal history of nicotine dependence
CPT/HCPCS: 36415; 36416; 73560; 80048; 82962; 82985; 83036; 83735; 85025; 85027; 85610; 85730; 86850; 86900; 86901; 87081; 88304; 90662; 94668; 97162; 97166; C1776; J7030; J7120; J2405; J3475; J3490

== ENCOUNTER → 2024-04-20 | Outpatient (CLI) | payer MEDICARE, OTHER, SELFPAY ==
[2024-04-20 12:14] LABS: Absolute Lymphocyte Count 2.35 X10^3/uL (0.83-4.51); Absolute Neutrophil Count 3.9 X10^3/uL (2.0-7.7); Basophil# 0.04 X10^3/uL; Basophil% 0.6 % (0-1); Eosinophil# 0.12 X10^3/uL; Eosinophils% 1.7 % (0-5); Hematocrit 39.5 % (37-47); Hemoglobin 12.5 g/dL (12.0-15.0); Lymphocyte # 2.35 X10^3/ul (0.83-4.51); Lymphocyte % 33.5 % (19-41); Mean Corp Hgb Conc 31.6 g/dL (32-36); Mean Corpuscular Hgb 29.1 pg (27.0-32.0); Mean Corpuscular Volume 92.1 fL (81-99); Mean Platelet Vol. 9.6 fl (6.2-12.0); Monocyte# 0.55 X10^3/uL; Monocyte% 7.8 % (0-10); NRBC Flagged by Analyzer 0 % (0-5); Neutrophil # 3.94 X10^3/uL (2.7-7.7); Neutrophil % 56.3 % (47-70); Platelet Count 258 K/mm3 (150-450); RBC Distribution Width CV 13.3 % (11.6-14.6); RBC Distribution Width SD 45.4 fl (35.1-43.9); Red Blood Count 4.29 M/mm3 (4.2-5.4)
[2024-04-20 12:47] LABS: ALB/GLOB Ratio 0.9 RATIO (0.9-2.4); AST(SGOT) 13 U/L (15-37); Alanine Aminotransfer ALT/SGPT 14 U/L (13-56); Albumin, Serum 3.6 g/dL (3.2-5.0); Alkaline Phosphatase 60 U/L (45-117); Anion Gap 4 (5-15); BUN 19 mg/dL (7-18); Chloride 108 mmol/L (98-107); Cholesterol 195 mg/dL (200); EST Glomerular Filtration Rate 65 mL/min (>60); Est Glom Filt Rate - Afr Amer 79 mL/min (>60); Glucose 99 mg/dL (74-106); High Density Lipoprotein 48 mg/dL; Potassium 4.1 mmol/L (3.5-5.1); Protein, Total 7.6 g/dL (6.4-8.2); Sodium Level 139 mmol/L (136-145); Triglycerides 164 mg/dL; Very Low Density Lipoprotein 33 mg/dL (5-40)
[2024-04-20 12:55] LABS: Hemoglobin A1c 5.4 % (3.8-5.6)
== END | disposition home or self-care (01) ==
LOC: MTLAB 11:05
PROVIDERS: PCP Internal Medicine; Referring Provider Internal Medicine; Visit Provider Internal Medicine
DX: E78.2 Mixed hyperlipidemia (principal); R73.03 Prediabetes
CPT/HCPCS: 36415; 80053; 80061; 83036; 85025

== ENCOUNTER → 2025-04-11 | Outpatient (CLI) | payer MEDICARE, OTHER, SELFPAY ==
[2025-04-11 13:06] LABS: Hematocrit 44.8 % (37-47); Hemoglobin 14.6 g/dL (12.0-15.0); Immature Granulocytes Count 0.020 X10^3/uL (0.0-0.0); Mean Corp Hgb Conc 32.6 g/dL (32-36); Mean Corpuscular Volume 91.6 fL (81-99); Mean Platelet Vol. 9.7 fl (6.2-12.0); NRBC Flagged by Analyzer 0 % (0-5); Platelet Count 282 K/mm3 (150-450); RBC Distribution Width CV 12.7 % (11.6-14.6); RBC Distribution Width SD 42.9 fl (35.1-43.9); Red Blood Count 4.89 M/mm3 (4.2-5.4); White Blood Count 8.9 K/mm3 (4.4-11.0)
[2025-04-11 13:38] LABS: Anion Gap 10 (5-15); BUN 15 mg/dL (4-19); BUN/Creat Ratio 15.6 RATIO (10-20); Calcium,Total 10.0 mg/dL (7.6-11.0); Carbon Dioxide 25.3 mmol/L (21.0-32.0); Chloride 104 mmol/L (98-108); Glucose 109 mg/dL (70-99); Potassium 4.4 mmol/L (3.3-5.1)
[2025-04-13 16:09] LABS: Albumin 3.6 g/dL (2.9-4.4); Gamma Globulin 1.2 g/dL (0.4-1.8); Immunoglobulin A 312 mg/dL (64-422); Immunoglobulin G 1155 mg/dL (586-1602); Immunoglobulin M 289 mg/dL (26-217); PROEL- TOTAL PROTEIN 7.4 g/dL (6.0-8.5); PROELU- Albumin, Urine 42.4 % (.); PROELU- Alpha-1-Globulin,Ur 4.3 % (.); PROELU- Alpha-2-Globulin,Ur 14.9 % (.); PROELU- Beta Globulin, Ur 17.2 % (.); PROELU- Gamma Globulin, Ur 21.1 % (.); Total Protein, Ur 6.9 mg/dL (Not Estab.)
== END | disposition home or self-care (01) ==
LOC: LAB 12:27
PROVIDERS: PCP Internal Medicine; Referring Provider Nurse Practitioner Family; Visit Provider Nurse Practitioner Family
DX: I48.0 Paroxysmal atrial fibrillation (principal); G56.03 Carpal tunnel syndrome, bilateral upper limbs
CPT/HCPCS: 36415; 80048; 82784; 83883; 84165; 84166; 85025; 86334

== ENCOUNTER → 2025-04-18 | Outpatient (CLI) | payer MEDICARE, OTHER, SELFPAY ==
--- OUTSIDE RECORDS SUMMARY | 2025-04-18 11:09 | XMS RPT_ITS | CCD ---
Author Organization [facility] Care Team Providers Care Carrier Washer Name Role Phone Dr. Bean Brower Primary Care Provider Dr. Edi Michelle Emergency Provider Dr. Doug Barrera Admit Provider Dr. Doug Barrera Attending Provider Dr. Doug Barrera Other Provider Dr. Skip Rangel Attending Provider Dr. Skip Rangel Other Provider Esther Martinez Attending Provider Unavailable Dr. Bean Brower Referring Provider Roof 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, 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-Vika Sam Attending Provider Dr. Yesi Clinton Attending Provider [phone] Dr. Yesi Clinton Primary Care Provider Dr. Yesi Clinton Referring Provider [phone] GLADYS Lim Attending Provider Unavailab Dr. Bean Nguyen Primary Care Provider Dr. Skip Rangel Attending Provider Roof 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, 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-Vika Sam Referring Provider Roof 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, 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-Vika Sam Other Provider Dr. Bean Brower Primary Care Provider Dr. Bean Brower Referring Provider Dr. Yesi Clinton Attending Provider Dr. Bean Brower Referring Provider Roof 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, 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-C Ashkan H Attending Provider Dr. Saul Hernandez Attending Provider Dr. Skip Rangel Referring Provider [phone] Skip Rangel Other Provider Dr. Brina Donovan Attending Provider Esther Martinez Attending Provider Unavailable Dr. Yesi Clinton Primary Care Provider [phone] Dr. Yesi Clinton Referring Provider Parmar 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, 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-C Kaylie Attending Provider Dr. Yesi Clinton Primary Care Provider [phone] Dr. Yesi Clinton Referring Provider Roof 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, 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-C Ashkan H Referring Provider Roof 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, 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-C Ashkan H Other Provider [phone] Dr. Yesi Clinton Primary Care Provider [phone] Dr. Skip Rangel Attending Provider [phone] Bean Brower Referring Provider Roof 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, 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-C Ashkan H Attending Provider Dr. Saul Hernandez Attending Provider [phone] Dr. Skip Rangel Referring Provider [phone] Skip Rangel Other Provider Dr. Brian Donovan Attending Provider Dr. Yesi Clinton Referring Provider Parmar 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, 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-C Kaylie Attending Provider Dr. Yesi Clinton Primary Care Provider Dr. Skip Rangel Attending Provider Dr. Edi Castano Attending Provider [phone] Dr. Yesi Clinton Primary Care Provider [phone] Dr. Yesi Clinton Referring Provider [phone] Dr. Matthew Montgomery Attending Provider Dr. Skip Rangel Attending Provider [phone] Glen Miguel Attending Provider [phone] GLADYS Ritchie Attending Provider Dr. Yesi Clinton Primary Care Provider [phone] Dr. Yesi Clinton Referring Provider [phone] Dr. Skip Rangel Attending Provider [phone] Dr. Skip Rangel Other Provider Tomasz 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, 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-Vika Valentin Attending Provider Dr. Yesi Clinton Primary Care Provider [phone] Dr. Yesi Clinton Attending Provider [phone] Dr. Yesi Clinton Referring Provider [phone] Sandrita 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, 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-C Ashkan Sam Attending Provider Dr. Skip Rangel Attending Provider [phone] Yesi Clinton Primary Care Provider [phone] Dr. Yesi Clinton Referring Provider [phone] GLADYS Guevara Attending Provider Dr. Yesi Clinton Attending Provider [phone] Yesi Clinton MD Primary Care Provider [phone] Rhona Ritchie Unavailable [phone] Skip Rangel MD Unavailable Dr. Yesi Clinton Primary Care Provider [phone] Dr. Yesi Clinton Referring Provider [phone] Sandrita 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, 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-C Ashkan Sam Attending Provider Dr. Yesi Clinton Primary Care Provider [phone] Dr. Yesi Clinton Referring Provider [phone] Roof 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, 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-C Ashkan Sam Attending Provider [phone] Dr. Skip Rangel Attending Provider [phone] GLADYS Guevara Attending Provider Dr. Yesi Clinton Attending Provider [phone] Dr. Doug Nowak Attending Provider [phone] GLADYS Marcus Attending Provider [phone] Roof 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, 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-C Ashkan Sam Referring Provider [phone] Dr. Mc Villaseñor Attending Provider GLADYS Marcus Referring Provider [phone] Dr. Yesi Clinton Primary Care Provider [phone] Dr. Yesi Clinton Referring Provider [phone] Roof 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, 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-Vika Sam Attending Provider Dr. Skip Rangel Attending Provider [phone] THOR BAIN Referring Unavailable OLEGHE, EFEWONGBE B Primary Care Unavailable THOR BAIN Attending Unavailable AUGOSTINI, MANSI S Admitting Unavailable AUGOSTINI, MANSI S Attending Unavailable OLEGHE, EFEWONGBE B Primary Care Unavailable OLEGHE, EFEWONGBE B Primary Care Unavailable SKIP RANGEL Referring Unavailable AUGOSTINI, MANSI S Attending Unavailable OLEGHE, EFEWONGBE B Primary Care Unavailable AUGOSTINI, MANSI S Attending Unavailable AUGOSTINI, MANSI S Referring Unavailable OLEGHE, EFEWONGBE B Primary Care Unavailable SELF, SELF Referring Unavailable OLEGHE, EFEWONGBE B Primary Care Unavailable THOR BAIN Attending Unavailable Dr. Yesi Clinton Primary Care Provider [phone] Dr. Yesi Clinton Attending Provider [phone] Dr. Yesi Clinton Referring Provider Dr. Doug Nowak Attending Provider [phone] GLADYS Marcus Referring Provider [phone] Sourav Jaramillo Attending Provider Dr. Doug Nowak Admit Provider Dr. Doug Nowak Referring Provider [phone] Doug Nowak Other Provider Roof 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, 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-C Ashkan Sam Other Provider JAILENE NICHOLS Attending Unavailable GLEN MIGUEL Referring Unavaila ble BORRUSO, GLEN PRESTON Referring Unavaila ble BORRUSO, GLEN PRESTON Referring Unavaila ble BORRUSO, GLEN PRESTON Referring Unavaila ble BORRUSO, GLEN PRESTON Referring Unavaila ble BORRUSO, GLEN PRESTON Referring Unavaila ble BORRUSO, GLEN PRESTON Referring Unavaila ble BORRUSO, GLEN PRESTON Referring Unavaila ble TESSESHERRIE CABEZAS Attending Unavailable BORRUSO, GLEN PRESTON Referring Unavaila ble TESSEANSHERRIE Attending Unavailable BORRUSO, GLEN PRESTON Referring Unavaila ble BORRUSO, GLEN PRESTON Referring Unavaila ble BORRUSO, GLEN PRESTON Referring Unavaila ble BORRUSO, GLEN PRESTON Referring Unavaila ble BORRUSO, GLEN PRESTON Referring Unavaila ble BORRUSO, GLEN PRESTON Referring Unavaila ble BORRUSO, GLEN PRESTON Referring Unavaila ble TOÑO PALACIOS Attending Unavailable BORRUSO, GLNE PRESTON Referring Unavaila ble BORRUSO, GLEN PRESTON Referring Unavaila ble BORRUSO, GLEN PRESTON Referring Unavaila ble Dr. Yesi Clinton MD Primary Care Physician Dr. Yesi Clinton MD Referring Provider [phone] Dr. Glen Miguel DO Attending Physician [phone] Dr. Skip Rangel MD Attending Physician [phone] Glen Miguel Attending Unavailable Glen Miguel Referring Unavailable Yesi Clinton Primary Care Unavailable Yesi Clinton Primary Care Unavailable Sandrita 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Ashkan Attending Unavailable Sandrita 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Ashkan Referring Unavailable Oleghe, Efewongbe Referring Unavailable Glen Miguel Attending Unavailable Oleghe, Efewongbe Primary Care Unavailable Oleghe, Efewongbe Referring Unavailable Glen Miguel Attending Unavailable Oleghe, Efewongbe Primary Care Unavailable Oleghe, Efewongbe Primary Care Unavailable Skip Rangel Attending Unavailable Oleghe, Efewongbe Primary Care Unavailable Roof 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, Ashkan Sam Attending Unavailable Oleghe, Efewongbe Referring Unavailable Juan CarlosKo cruzril Attending Unavailable Oleghe, Efewongbe Referring Unavailable Oleghe, Efewongbe Primary Care Unavailable Oleghe, Efewongbe Referring Unavailable Oleghe, Efewongbe Primary Care Unavailable Oleghe, Efewongbe Attending Unavailable Oleghe, Efewongbe Referring Unavailable Oleghe, Efewongbe Primary Care Unavailable Oleghe, Efewongbe Attending Unavailable Allergies Allergy Classification Reported Allergen(s) Allergy Type Date of Onset Reaction(s) Facility Piperacillin / tazobactam (1 source) Piperacillin / tazobactam; Translations: [PIPERACILLIN-TA ZOBACTAM] Drug Allergy 4 [facility] Repository (20 sources) Piperacillin Drug Allergy 2 [facility] (20 sources) tazobactam Drug Allergy 2 [facility] (20 sources) Amiodarone Drug Allergy 2 Dizzy/Vertigo [facility] (16 sources) dilTIAZem Drug Allergy 3 Swelling [facility] (3 sources) Piperacillin / tazobactam Drug Allergy 3 [facility] (1 source) ALLERGIES NOT ON FILE; Translations: [ALLERGIES NOT ON FILE] Propensity to adverse reactions (disorder) [facility] 2 Repository (1 source) Amiodarone Drug Allergy 5 [facility] Repository (1 source) dilTIAZem Drug Allergy 5 [facility] Repository (1 source) Piperacillin Drug Allergy 5 [facility] Repository (1 source) tazobactam Drug Allergy 5 [facility] Repository Medications Current Medications Medication Drug Class(es) Dates Sig (Normalized) Sig (Original) acetaminophen 500 mg oral tablet (20 sources) Start: 02-23-2024 take 2 tablets by mouth every six hours Start: 03-30-2023 End: 03-30-2023 take 1 tablet by mouth every eight hours as needed 975 mg, Oral, EVERY 8 HOURS NEEDED, Starting on Wed03/30/23 at 1720, Until Wed03/30/23 at 2155, Moderate Pain Maximum dose of acetaminophen is 4000 mg from all sources in 24 hours. Start: 08-03-2021 End: 04-18-2024 take 2 tablets by mouth three times daily Acetaminophen 500 mg tablet Discontinued 1000 mg PO THREE TIMES A DAY March 18, 2022 9:01am April 18, 2024 2:26pm pain Start: 08-03-2021 End: 03-18-2022 take 1000 mg by mouth three times daily Acetaminophen Active 1000 MG PO THREE TIMES A DAY March 18, 2022 9:01am Start: 08-01-2021 End: 08-03-2021 take 1 tablet by mouth once daily as needed for pain Acetaminophen 500 mg Tablet Discontinued 500 mg PO DAILY as needed for Pain August 01, 2021 1:00am August 03, 2021 1:09pm take 1000 mg by mout h three times daily Acetaminophen (TYLENOL PO) Take 1,000 mg by mouth 3 (three) times a day. Active Handicap Placard (20 sources) Start: 04-19-[address] Active 0 .ROUTE .MEDSUPPLY 1 0 April 19, 2024 1:00am Other reduced mobility As directed, length of time 3 years Start: 09-01-[address] Active 0 .ROUTE .MEDSUPPLY 1 0 September 01, 2021 12:00am Other reduced mobility As directed, length of time 3 years Start: 09-01-[address] Active 0 .ROUTE .MEDSUPPLY August 31, 2021 11:00pm As directed, length of time 3 years Start: 09-01-[address] Active 0 .ROUTE .MEDSUPPLY 1 September 01, 2021 12:00am As directed, length of time 3 years metoprolol tartrate 50 mg or al tablet (20 sources) beta-Adrenergic Sherman Start: 08-16-2024 Start: 10-11-2023 End: 08-16-2024 Metoprolol Tartrate 25 mg ta blet Discontinued 50 mg PO TWICE A DAY 180 3 April 18, 2024 2:29pm August 16, 2024 1:12pm BP Will take 50 mg instead of 25 mg if BP is up Start: 09-08-2023 End: 10-11-2023 take 1 tablet by mouth twice daily Metoprolol Tartrate 25 mg Tablet Discontinued 25 mg PO TWICE A DAY 0 September 08, 2023 12:00am October 11, 2023 10:33am Start: 08-18-2023 End: 09-08-2023 take 1 tablet by mouth twice daily Metoprolol Tartrate 50 mg tablet Discontinued 50 mg PO TWICE A DAY 180 August 31, 2023 9:22am September 08, 2023 12:37pm BP Start: 03-30-2023 End: 03-30-2023 take 25 mg by mouth every twelve hours 25 mg, Oral, EVERY 12 HOURS, First dose on Wed03/30/23 at 2100, Until Discontinued Start: 03-01-2023 End: 08-18-2023 Metoprolol Tartrate 50 mg ta blet Discontinued 25 mg PO TWICE A DAY 90 April 28, 2023 9:48pm August 18, 2023 3:12pm Start: 03-01-2023 End: 08-18-2023 take 25 mg by mouth twice daily Metoprolol Tartrate Di scontinued 25 MG PO TWICE A DAY 90 April 28, 2023 9:48pm August 18, 2023 3:12pm Start: 11-19-2022 End: 03-01-2023 take 1 tablet by mouth twice daily Metoprolol Tartrate 50 mg tablet Discontinued 50 mg PO TWICE A DAY 180 November 19, 2022 12:00am March 01, 2023 9:51am take 1 tablet by stephen th twice daily Metoprolol 25 MG tab regular release Take 1 tablet by mouth 2 times daily. 0 Active miconazole nitrate 0.02 mg/mg topical powder (20 sources) Azole Antifungal Start: 02-03-2022 Miconazole Ni trate Active 1 APPLIC TOPICAL TWICE A DAY February 03, 2022 8:59am Start: 11-20-2021 End: 02-03-2022 Miconazole Nitrate 2 % powde r Discontinued 1 NMA TOPICAL TWICE A DAY December 30, 2021 2:05pm February 03, 2022 9:01am sacubitril 24 mg / valsartan 26 mg oral tablet (20 sources) Angiotensin 2 Receptor Sherman Start: 06-29-2023 End: 04-18-2024 Start: 03-31-2023 End: 03-30-2023 take 1 tablet by mouth twice daily 1 tablet, Oral, 2 TIMES DAILY, First dose on Wed03/31/23 at 0900, Until Discontinued Start: 11-30-2022 End: 06-29-2023 Sacubitril-Valsartan (Entres to) 24-26 mg tablet Discontinued 1 {tbl} PO TWICE A DAY November 30, 2022 12:00am June 29, 2023 11:31am Start: 08-03-2021 End: 11-19-2022 Sacubitril-Valsartan (Entres to) 24-26 mg tablet Discontinued 1 {tbl} PO TWICE A DAY 60 August 26, 2022 9:54am November 19, 2022 2:08pm On Hold: Order Changed traMADol hydrochloride 50 mg oral tablet (13 sources) Opioid Agonist Start: 03-26-2023 take 1 tablet by mouth every six hours as needed traMADol 50 MG tablet Take 1 tablet by mouth every 6 hours as needed for Moderate Pain. 03/26/2023 Active Start: 03-26-2023 End: 04-03-2024 take 1 tablet by mouth three times daily as needed for pain Tramadol 50 mg tablet Discontinued 50 mg PO THREE TIMES A DAY as needed for pain 21 0 March 26, 2023 12:00am April 03, 2024 11:40am Localized superficial swelling, mass, or lump Cervical radiculopathy Localized swelling, mass and lump, unspecified Radiculopathy, cervical region Completed/Discontinued Medications Medication Drug Class(es) Dates Sig (Normalized) Sig (Original) amiodarone hydrochloride 200 mg oral tablet (20 sources) Antiarrhythmic Start: 01-23-2022 End: 01-29-2022 Amiodarone 200 mg tablet Discontinued 200 mg PO .COMPLEX 60 January 23, 2022 12:00am January 29, 2022 2:32pm 200 mg orally twice a day for 2 weeks then once a day; apixaban 5 mg oral tablet (20 sources) Factor Xa Inhibitor Start: 08-03-2021 End: 04-18-2024 take 1 tablet by mouth twice daily Apixaban (Eliquis) 5 mg tablet Discontinued 5 mg PO TWICE A DAY 60 June 29, 2023 11:31am April 18, 2024 2:30pm BLOOD THINNER Eliquis 5 MG tab let Take by mouth every 12 hours. Active aspirin 81 mg delayed release oral tablet (20 sources) Platelet Aggregation Inhibitor, Nonsteroidal Anti-inflammatory Drug Start: 04-05-2023 End: 05-17-2023 Aspirin (Adult Low Dose Aspirin) 81 mg tablet,delayed release (DR/EC) Discontinued 81 mg PO DAILY April 05, 2023 1:00am May 17, 2023 11:37am X 30 days post ablation Start: 03-30-2023 End: 03-30-2023 aspirin chewable tablet 81 m g Start: 10-14-2022 End: 10-21-2022 take 1 tablet by mouth once daily Aspirin (Adult Aspirin Regimen) 81 mg tablet,delayed release (DR/EC) Discontinued 81 mg PO DAILY October 14, 2022 12:00am October 21, 2022 10:23am carvedilol 25 mg oral tablet (20 sources) alpha-Adrenergic Sherman, beta-Adrenergic Sherman Start: 10-27-2022 End: 11-19-2022 take 1 tablet by mouth twice daily at mealtime Carvedilol 25 mg tablet Discontinued 25 mg PO TWICE A DAY 60 October 27, 2022 12:00am November 19, 2022 7:21pm must administer with a meal/food Start: 10-14-2022 End: 10-27-2022 take 1 tablet by mouth twice daily at mealtime Carvedilol 12.5 mg tablet Discontinued 12.5 mg PO TWICE A DAY October 14, 2022 12:00am October 27, 2022 12:41pm must administer with a meal/food Start: 09-14-2022 End: 10-14-2022 take 1 tablet by mouth twice daily at mealtime Carvedilol 6.25 mg tablet Discontinued 6.25 mg PO TWICE A DAY September 14, 2022 12:00am May 17th, 2023 10:20am must administer with a meal/food Start: 09-14-2022 End: 09-14-2022 take 1 tablet by mouth twice daily at mealtime Carvedilol 3.125 mg tablet Discontinued 3.125 mg PO TWICE A DAY 180 3 September 14, 2022 12:00am September 14, 2022 5:27pm must administer with a meal/food Start: 07-27-2022 End: 09-14-2022 take 1 tablet by mouth twice daily at mealtime Carvedilol 12.5 mg tablet Discontinued 12.5 mg PO TWICE A DAY 180 July 27, 2022 1:00am September 14, 2022 5:26pm must administer with a meal/food Start: 04-28-2022 End: 07-27-2022 take 1 tablet by mouth in the morning, then take 2 tablets by mouth in the evening Carvedilol 6.25 mg tablet Discontinued 6.25 mg PO .COMPLEX 90 May 18, 2022 7:22pm July 27, 2022 10:33am 6.25 mg orally; 6.25mg in AM and 12.5mg in the PM Start: 04-06-2022 End: 04-28-2022 take 9.375 mg by mouth twice daily Carvedilol 6.25 mg tablet Discontinued 9.375 mg PO TWICE A DAY 60 April 06, 2022 2:17pm April 28, 2022 5:33pm Start: 04-06-2022 End: 04-28-2022 take 9.375 mg by mouth twice daily Carvedilol Discontinued 9.375 MG PO TWICE A DAY 60 April 06, 2022 2:17pm April 28, 2022 5:33pm Start: 04-04-2022 End: 04-06-2022 take 1 tablet by mouth twice daily at mealtime Carvedilol (Coreg) 25 mg tablet Discontinued 25 mg PO TWICE A DAY 60 0 April 04, 2022 1:45pm April 06, 2022 2:18pm must administer with a meal/food Start: 08-03-2021 End: 04-06-2022 take 1 tablet by mouth twice daily Carvedilol 6.25 mg tablet Discontinued 6.25 mg PO TWICE A DAY 60 August 19, 2021 3:33pm November 7th, 2022 2:18pm cephalexin 500 mg oral tablet (20 sources) Cephalosporin Antibacterial Start: 05-17-2023 End: 05-22-2023 take 1 tablet by mouth three times daily Cephalexin 500 mg tablet Discontinued 500 mg PO THREE TIMES A DAY 15 5 0 May 17, 2023 1:00am May 21, 2023 1:00am May 22, 2023 1:27am Start: 12-03-2021 End: 12-30-2021 take 1 capsule by mouth twice daily Cephalexin 500 mg capsule Discontinued 500 mg PO TWICE A DAY 14 0 December 03, 2021 12:00am December 30, 2021 2:05pm 24 hr dilTIAZem hydrochloride 120 mg extended release oral capsule (13 sources) Calcium Channel Sherman Start: 11-13-2022 End: 11-19-2022 take 1 capsule by mouth once daily Diltiazem Hcl 120 mg capsule,extended release 24hr Discontinued 120 mg PO DAILY 60 2 November 13, 2022 12:00am November 19, 2022 2:08pm flecainide acetate 50 mg oral tablet (20 sources) Antiarrhythmic Start: 06-30-2022 End: 10-14-2022 take 1 tablet by mouth twice daily Flecainide 50 mg tablet Discontinued 50 mg PO TWICE A DAY 180 3 June 30, 2022 5:53pm October 14, 2022 10:20am Start: 04-28-2022 End: 06-30-2022 Flecainide 100 mg tablet Discontinued 50 mg PO TWICE A DAY 60 April 28, 2022 5:32pm June 30, 2022 5:53pm Start: 04-28-2022 End: 06-30-2022 take 50 mg by mouth twice daily Flecainide Discontinue d 50 MG PO TWICE A DAY 60 April 28, 2022 5:32pm June 30, 2022 5:53pm Start: 04-06-2022 End: 04-28-2022 take 100 mg by mouth in the morning, then take 50 mg by mouth in the evening Flecainide Discontinued 50 MG PO .COMPLEX 60 April 06, 2022 2:16pm April 28, 2022 5:33pm 50 mg orally; 100mg in AM and 50mg PM Start: 04-06-2022 End: 04-06-2022 Flecainide 100 mg tablet Discontinued 50 mg PO Q12H 60 April 06, 2022 2:11pm April 06, 2022 2:18pm Start: 04-06-2022 End: 04-06-2022 take 50 mg by mouth every twelve hours Flecainide Discontinued 50 MG PO Q12H 60 April 06, 2022 2:11pm April 06, 2022 2:18pm Start: 02-03-2022 End: 04-28-2022 Flecainide 100 mg tablet Discontinued 50 mg PO .COMPLEX 60 April 06, 2022 2:16pm April 28, 2022 5:33pm 50 mg orally; 100mg in AM and 50mg PM fosfomycin 3000 mg powder for oral solution (20 sources) Start: 12-02-2021 End: 12-30-2021 take 3 g by mouth once Fosfomycin Tromethamine 3 gram packet Discontinued 3 g PO ONCE 1 0 December 02, 2021 12:00am December 30, 2021 2:05pm furosemide 40 mg oral tablet (20 sources) Loop Diuretic Start: 08-19-2021 End: 02-07-2024 Furosemide 40 mg tablet Discontinued 40 mg PO .PRN as needed for edema, weight gain, SOB 30 November 30, 2022 10:10am February 07, 2024 12:12pm Start: 08-03-2021 End: 08-19-2021 take 1 tablet by mouth twice daily Furosemide 40 mg Tablet Discontinued 40 mg PO TWICE DAILY 60 0 August 03, 2021 1:00am August 19, 2021 2:48pm 1 ml HYDROmorphone hydrochloride 1 mg/ml cartridge (2 sources) Opioid Agonist Start: 03-30-2023 End: 03-30-2023 take 0.2 mg intravenously every two hours as needed HYDROmorphone (DILAUDID) injection 0.2 mg ibuprofen 200 mg oral tablet (20 sources) Nonsteroidal Anti-inflammatory Drug Start: 08-01-2021 End: 08-03-2021 take 4 tablets by mouth three times daily as needed for arthritis Ibuprofen 200 mg Tablet Discontinued 800 mg PO THREE TIMES A DAY as needed for ARTHRITIS August 01, 2021 1:00am August 03, 2021 1:01pm Start: 08-01-2021 End: 08-03-2021 take 800 mg by mouth three times daily Ibuprofen Discontinued 800 MG PO THREE TIMES A DAY August 01, 2021 1:00am August 03, 2021 1:01pm iohexol (OMNIPAQUE) 350 MG/ML injection 1-171 mL (1 source) Start: 03-30-2023 End: 03-30-2023 iohexol (OMNIPAQUE) 350 MG/ML injection 1-171 mL magnesium oxide 400 mg oral tablet (1 source) Start: 03-30-2023 End: 03-30-2023 magnesium oxide (MAG-OX) tablet 800 mg 50 ml magnesium sulfate 80 mg/ml injection (1 source) Start: 03-30-2023 End: 03-30-2023 Magnesium sulfate 4 g in sterile water 50 ml premix IVPB Molnupiravir (20 sources) Start: 12-20-2021 End: 12-30-2021 take 1 capsule by mouth every twelve hours Molnupiravir 200 mg capsule Discontinued 800 mg PO Q12H 40 5 0 December 20, 2021 12:00am December 30, 2021 2:06pm Start: 12-20-2021 End: 12-30-2021 take 800 mg by mouth every twelve hours Molnupiravir Discontinued 800 MG PO Q12H 40 5 December 19, 2021 11:00pm December 30, 2021 1:06pm Start: 12-20-2021 End: 12-30-2021 take 800 mg by mouth every twelve hours Molnupiravir Discontinued 800 MG PO Q12H 40 5 December 20, 2021 12:00am December 30, 2021 2:06pm Start: 12-20-2021 take 800 mg by mouth every twelve hours Molnupiravir Active 800 MG PO Q12H 40 5 December 20, 2021 12:00am nitrofurantoin, macrocrystals 100 mg oral capsule (20 sources) Nitrofuran Antibacterial Start: 11-20-2021 End: 12-04-2021 take 1 capsule by mouth twice daily at mealtime Nitrofurantoin Macrocrystal 100 mg capsule Discontinued 100 mg PO TWICE A DAY 14 0 November 20, 2021 12:00am December 04, 2021 2:51pm must administer with a meal/food omeprazole 40 mg delayed release oral capsule (9 sources) Proton Pump Inhibitor Start: 04-05-2023 End: 05-17-2023 take 1 capsule by mouth once daily Omeprazole 40 mg capsule,delayed release(DR/EC) Discontinued 40 mg PO DAILY April 05, 2023 1:00am May 17, 2023 11:37am 2 ml ondansetron 2 mg/ml injection (2 sources) Serotonin-3 Receptor Antagonist Start: 03-30-2023 End: 03-30-2023 Ondansetron 4mg/2ml (ZOFRAN) injection 4 mg oxyCODONE hydrochloride 5 mg oral tablet (10 sources) Opioid Agonist Start: 03-14-2024 End: 03-21-2024 take 5-10 mg by mouth every six hours as needed for pain Oxycodone 5 mg tablet Discontinued 5 - 10 mg PO EVERY 6 HOURS as needed for Pain Score 6-10/10 56 7 0 March 14, 2024 March 20, 2024 12:00am March 21, 2024 12:08am Other acute postprocedural pain Do not combine with other narcotic medication Start: 02-23-2024 End: 04-03-2024 take 5-10 mg by mouth every four hours as needed for pain Oxycodone 5 mg tablet Discontinued 5 - 10 mg PO EVERY 4 HOURS NEEDED as needed for Pain Score 4-10 60 7 0 March 02, 2024 April 03, 2024 11:39am Other acute postprocedural pain Other acute postprocedural pain Start: 09-08-2023 End: 02-07-2024 take 1 tablet by mouth every eight hours as needed for pain Oxycodone 5 mg Tablet Discontinued 5 mg PO EVERY 8 HOURS NEEDED as needed for Pain Score 6-10 12 4 0 September 08, 2023 February 07, 2024 12:13pm Postoperative pain Other acute postprocedural pain Start: 03-30-2023 End: 03-30-2023 take 1 tablet by mouth every four hours as needed oxyCODONE (ROXICODONE) tablet 5 mg pantoprazole 40 mg delayed release oral tablet (11 sources) Proton Pump Inhibitor Start: 04-05-2023 End: 04-05-2023 take 1 tablet by mouth once daily Pantoprazole 40 mg tablet,delayed release (DR/EC) Discontinued 40 mg PO DAILY April 05, 2023 1:00am April 05, 2023 12:05pm X 30 days post ablation Start: 03-30-2023 End: 03-30-2023 Pantoprazole (PROTONIX) tabl et DR 40 mg microencapsulated potassium chloride 20 meq extended release oral tablet (20 sources) Start: 03-30-2023 End: 03-30-2023 Potassium chloride (K-DUR) tablet ER 20 mEq Start: 08-03-2021 End: 03-01-2023 Potassium Chloride 20 mEq ta blet,ER particles/crystals Discontinued 20 meq PO .PRN as needed for When taking diuretics 30 0 August 19, 2021 3:25pm March 01, 2023 9:51am Sodium Chloride (3 sources) Start: 03-30-2023 End: 03-30-2023 Sodium chloride 0.9% IV solu tion Start: 03-30-2023 End: 03-30-2023 Sodium chloride 0.9% IV solu tion 500 mL Start: 03-30-2023 End: 03-30-2023 Sodium chloride (PF) 0.9 % i njection 1-100 mL Problems Active Problems Problem Classification Problem Date Documented Date Episodic/Chronic Abdominal pain (20 sources) Right flank pain; Translations: [Unspecified abdominal pain] 12-28-2021 Episodic Acquired foot deformities (18 sources) Foot-drop; Translations: [Foot drop, right foot] Onset: 7 05-20-2022 Episodic Biliary tract disease (20 sources) Biliary calculus; Translations: [Calculus of gallbladder without cholecystitis without obstruction] 12-28-2021 Episodic Calculus of urinary tract (20 sources) History of calculus of kidney; Translations: [Personal history of urinary calculi] 09-01-2021 Episodic Cardiac dysrhythmias (20 sources) Atrial fibrillation; Translations: [Unspecified atrial fibrillation] Onset: Chronic Comment on above: DCCV 01/08/2022, 02/11; RFA 03/30/2023 at [facility]; Cardiac dysrhythmias (20 sources) Tachycardia; Translations: [Tachycardia, unspecified] 09-17-2022 Episodic Comment on above: The patient reports that she has having palpitations again when she wore the 30-day event recorder she had the same sensations. At that time she was mainly in sinus rhythm occasionally was bradycardic with sinus bradycardia. She did not trigger the event recorder when she had 4 episodes of 4 beats of VT. She had only 3% PVCs noted on that 30-day event recorder.The patient did complain of the near syncopal spell that occurred August 20, 2023. This lasted less than 10 seconds. Complications of surgical procedures or medical care (20 sources) Vascular complication of medical care; Translations: [Complication of other artery following a procedure, not elsewhere classified, initial encounter] 04-05-2023 Episodic Comment on above: Status post simple r epair August 2023 Congestive heart failure; nonhypertensive (20 sources) Heart failure with reduced ejection fraction; Translations: [Unspecified systolic (congestive) heart failure] Onset: 5 Chronic Crushing injury or internal injury (15 sources) Injury of common femoral artery; Translations: [Unspecified injury of femoral artery, unspecified leg, initial encounter] 04-05-2023 Episodic Diabetes mellitus without complication (3 sources) Prediabetes; Translations: [Prediabetes] Onset: 5 04-19-2024 Episodic Disorders of lipid metabolism (20 sources) Hyperlipidemia; Translations: [Hyperlipidemia, unspecified] Onset: Chronic Essential hypertension (5 sources) Essential hypertension; Translations: [Essential (primary) hypertension] Onset: 4 08-13-2023 Chronic Comment on above: CONTROLLED ON MED Fever of unknown origin (20 sources) Fever; Translations: [Fever, unspecified] 12-28-2021 Episodic Fluid and electrolyte disorders (20 sources) Mild dehydration; Translations: [Dehydration] 11-27-2021 Episodic Genitourinary symptoms and ill-defined conditions (20 sources) Urinary incontinence; Translations: [Unspecified urinary incontinence] 12-28-2021 Chronic Genitourinary symptoms and ill-defined conditions (12 sources) Foul smelling urine; Translations: [Unspecified abnormal findings in urine] 05-17-2023 Episodic Malaise and fatigue (20 sources) Asthenia; Translations: [Weakness] Episodic Mycoses (4 sources) Other sites of candidiasis; Translations: [Other candidiasis of other specified sites] Episodic Osteoarthritis (20 sources) Osteoarthritis of right knee joint; Translations: [Unilateral primary osteoarthritis, right knee] Onset: 5 06-10-2022 Chronic Other aftercare (13 sources) Patient encounter status; Translations: [Encounter for therapeutic drug level monitoring] 05-20-2022 Episodic Other aftercare (2 sources) Long-term current use of drug therapy; Translations: [Encounter for therapeutic drug level monitoring] 05-20-2022 Episodic Other and unspecified benign neoplasm (20 sources) Adenomyomatosis of gallbladder; Translations: [Benign neoplasm of extrahepatic bile ducts] 12-28-2021 Episodic Other circulatory disease (4 sources) Orthostatic hypotension; Translations: [Orthostatic hypotension] Episodic Other connective tissue disease (2 sources) History of total hip arthroplasty; Translations: [Presence of unspecified artificial hip joint] 02-11-2024 Chronic Other connective tissue disease (4 sources) History of total knee arthroplasty; Translations: [Presence of unspecified artificial knee joint] 04-03-2024 Chronic Other connective tissue disease (1 source) Presence of right artificial hip joint; Translations: [Presence of right artificial hip joint] Onset: Chronic Other connective tissue disease (2 sources) Disorder of hip; Translations: [Other symptoms and signs involving the musculoskeletal system] 05-15-2024 Episodic Other hematologic conditions (20 sources) High troponin I level; Translations: [Other specified abnormalities of plasma proteins] 08-11-2021 Episodic Other hematologic conditions (2 sources) Other specified abnormalities of plasma proteins; Translations: [Other abnormal blood chemistry] Episodic Other nervous system disorders (8 sources) Carpal tunnel syndrome; Translations: [Carpal tunnel syndrome, bilateral upper limbs] 05-04-2023 Chronic Other nervous system disorders (7 sources) Carpal tunnel syndrome, bilateral upper limbs; Translations: [Carpal tunnel syndrome] Onset: 5 05-04-2023 Chronic Other nervous system disorders (4 sources) Bilateral carpal tunnel syndrome; Translations: [Carpal tunnel syndrome, bilateral upper limbs] 02-23-2025 Chronic Other nervous system disorders (2 sources) Acute postoperative pain; Translations: [Other acute postprocedural pain] 02-23-2024 Episodic Other non-traumatic joint disorders (17 sources) Pain in right knee; Translations: [Right knee pain] 05-20-2022 Episodic Other non-traumatic joint disorders (19 sources) Pain in left shoulder; Translations: [Left shoulder pain] 03-24-2023 Episodic Other non-traumatic joint disorders (8 sources) Effusion of acromioclavicular joint; Translations: [Effusion, left shoulder] 05-04-2023 Episodic Other non-traumatic joint disorders (5 sources) Effusion, left shoulder; Translations: [Effusion of joint, shoulder region] 05-04-2023 Episodic Other non-traumatic joint disorders (2 sources) Hip pain; Translations: [Pain in right hip] 02-11-2024 Episodic Other nutritional; endocrine; and metabolic disorders (20 sources) Body mass index 30+ - obesity; Translations: [Body mass index (BMI) 35.0-35.9, adult] Onset: 5 03-05-2022 Chronic Other nutritional; endocrine; and metabolic disorders (5 sources) Body mass index (BMI) 35.0-35.9, adult; Translations: [Body Mass Index 35.0-35.9, adult] Chronic Other nutritional; endocrine; and metabolic disorders (3 sources) Body mass index 40+ - severely obese; Translations: [Morbid (severe) obesity due to excess calories] Onset: 8 01-16-2023 Chronic Other nutritional; endocrine; and metabolic disorders (2 sources) Obesity; Translations: [Obesity, unspecified] 11-26-2023 Chronic Other nutritional; endocrine; and metabolic disorders (1 source) Morbid (severe) obesity due to excess calories; Translations: [Morbid (severe) obesity due to excess calories] Onset: 5 Chronic Other nutritional; endocrine; and metabolic disorders (1 source) Body mass index (BMI) 37.0-37.9, adult; Translations: [Body mass index [BMI] 37.0-37.9, adult] Onset: 5 Chronic Other skin disorders (11 sources) Mass of skin; Translations: [Localized swelling, mass and lump, unspecified] 03-26-2023 Episodic Other skin disorders (8 sources) Localized swelling, mass and lump, unspecified; Translations: [Localized superficial swelling, mass, or lump] 03-26-2023 Episodic Meaghan-; endo-; and myocarditis; cardiomyopathy (except that caused by tuberculosis or sexually transmitted disease) (2 sources) Other cardiomyopathies; Translations: [Other cardiomyopathies] Onset: 3 Chronic Residual codes; unclassified (20 sources) Hypersomnia; Translations: [Hypersomnia, unspecified] 02-03-2022 Chronic Residual codes; unclassified (9 sources) Hypersomnia, unspecified; Translations: [Hypersomnia, unspecified] Chronic Residual codes; unclassified (19 sources) Sleep apnea; Translations: [Sleep apnea, unspecified] 06-09-2022 Chronic Residual codes; unclassified (6 sources) Sleep apnea, unspecified; Translations: [Unspecified sleep apnea] Chronic Residual codes; unclassified (1 source) Obstructive sleep apnea (adult) (pediatric); Translations: [Obstructive sleep apnea (adult) (pediatric)] Onset: 5 Chronic Residual codes; unclassified (13 sources) Other specified postprocedural states; Translations: [Personal history of surgery to heart and great vessels, presenting hazards to health] Onset: 3 04-05-2023 Episodic Spondylosis; intervertebral disc disorders; other back problems (20 sources) Lumbar radiculopathy; Translations: [Radiculopathy, lumbar region] Onset: 7 Episodic Syncope (15 sources) Near syncope; Translations: [Syncope and collapse] 10-13-2022 Episodic Comment on above: The patient's episod e of near syncope lasting less than 10 seconds by her report. She has been very anxious by her own admission about this upcoming surgical procedure. She did not obtain her rhythm on her [employer] mobile when this occurred. And it passed very quickly. Her concern was it was a similar sensation to what she felt when she had ventricular tachycardia on flecainide back in November 2022. I do not feel that this represents a significant risk however I cannot be certain. Her LV function is known to be normal she has no significant coronary disease by previous catheterization and she has no documented significant ectopy on a 30-day event monitor. Unclassified (2 sources) Other persistent atrial fibrillation; Translations: [Other persistent atrial fibrillation] Onset: 3 Urinary tract infections (14 sources) Urinary tract infection, site not specified; Translations: [Urinary tract infection, site not specified] Episodic Past or Other Problems Problem Classification Problem Date Documented Date Episodic/Chronic Administrative/social admission (1 source) Other reduced mobility; Translations: [Other reduced mobility] Onset: 04-19-2024 Episodic Deficiency and other anemia (3 sources) Anemia; Translations: [Anemia, unspecified] Onset: 09-10-2013 01-16-2023 Episodic Other screening for suspected conditions (not mental disorders or infectious disease) (3 sources) Serum creatinine raised; Translations: [Other specified abnormal findings of blood chemistry] Onset: 09-14-2016 01-16-2023 Episodic Residual codes; unclassified (20 sources) History of cardioversion; Translations: [Other specified postprocedural states] Onset: 01-08-2022 01-14-2022 Episodic Residual codes; unclassified (9 sources) History of radiofrequency ablation operation for arrhythmia; Translations: [Other specified postprocedural states] Onset: 03-30-2023 04-05-2023 Episodic Comment on above: Wide Antral Circumfe rential ablation with DCCV x1; Unclassified (2 sources) Onset: 03-30-2023 03-30-2023 Viral infection (20 sources) Disease caused by 2019-nCoV; Translations: [COVID-19] Onset: 12-18-2021 12-30-2021 Episodic Results Test Name Value Interpretation Reference Range Facility Basic Metabolic Profile (BMP )on 04-11-2025 BUN/CRE 15.6 RATIO Normal 03-19 [facility] Comment on above: Performed By: #### L 500.2500, L100.0100 #### [facility] [address] [place], [address] Calcium [Mass/Vol] 10.0 mg/dL Normal 7.6-11.0 [facility] Comment on above: Performed By: #### L 500.2500, L100.0100 #### [facility] [address] [place], [address] Chloride [Moles/Vol] 104 mmol/L Normal 98-108 [facility] Comment on above: Performed By: #### L 500.2500, L100.0100 #### [facility] [address] [place], [address] CO2 [Moles/Vol] 25.3 mmol/L Normal 21.0-32.0 [facility] Comment on above: Performed By: #### L 500.2500, L100.0100 #### [facility] [address] [place], [address] Creatinine [Mass/Vol] 0.95 mg/dL Normal 0.70-1.20 [facility] Comment on above: Performed By: #### L 500.2500, L100.0100 #### [facility] [address] [place], [address] GAP 10 Normal 5-15 [facility] Comment on above: Performed By: #### L 500.2500, L100.0100 #### [facility] [address] [place], [address] GFR/1.73 sq M.predicted among non-blacks MDRD (S/P/Bld) [Vol rate/Area] 64 mL/min/{1.73_m2} Normal >60 [facility] Comment on above: Result Comment: mL/m in/1.73m2 CKD-EPI Creatinine Equation (2020) Performed By: #### L 500.2500, L100.0100 #### [facility] [address] [place], [address] Glucose [Mass/Vol] 109 mg/dL High 70-99 [facility] Comment on above: Performed By: #### L 500.2500, L100.0100 #### [facility] [address] [place], [address] Potassium [Moles/Vol] 4.4 mmol/L Normal 3.3-5.1 [facility] Comment on above: Performed By: #### L 500.2500, L100.0100 #### [facility] [address] [place], [address] Sodium [Moles/Vol] 139 mmol/L Normal 133-145 [facility] Comment on above: Performed By: #### L 500.2500, L100.0100 #### [facility] [address] [place], [address] Urea nitrogen [Mass/Vol] 15 mg/dL Normal 4-19 [facility] Comment on above: Performed By: #### L 500.2500, L100.0100 #### [facility] [address] [place], [address] CBC W/Diff, Automatedon 03-31 Absolute Lymph 2.50 X10 3/uL Normal 0.83-4.51 [facility] Comment on above: Performed By: #### L 500.2500, L100.0100 #### [facility] [address] [place], [address] Absolute Neut 5.3 X10 3/uL Normal 2.0-7.7 [facility] Comment on above: Performed By: #### L 500.2500, L100.0100 #### [facility] [address] [place], [address] Basophils/100 WBC (Bld) 0.4 % Normal 0-1 [facility] Comment on above: Performed By: #### L 500.2500, L100.0100 #### [facility] [address] [place], [address] Eosinophils/100 WBC (Bld) 1.8 % Normal 0-5 [facility] Comment on above: Performed By: #### L 500.2500, L100.0100 #### [facility] [address] [place], [address] Erythrocyte distribution width (RBC) [Ratio] 12.7 % Normal 11.6-14.6 [facility] Comment on above: Performed By: #### L 500.2500, L100.0100 #### [facility] [address] [place], [address] Hematocrit (Bld) [Volume fraction] 44.8 % Normal 37-47 [facility] Comment on above: Performed By: #### L 500.2500, L100.0100 #### [facility] [address] [place], [address] Hemoglobin (Bld) [Mass/Vol] 14.6 g/dL Normal 12.0-15.0 [facility] Comment on above: Performed By: #### L 500.2500, L100.0100 #### [facility] [address] [place], [address] IG% 0.200 Normal 0.0-0.9 [facility] Comment on above: Result Comment: IG% - Immature Granulocytes (promyelocytes, myelocytes and metamyelocytes) > 1% indicates that a LEFT SHIFT is Present. Performed By: #### L 500.2500, L100.0100 #### [facility] [address] [place], [address] Lymphocytes/100 WBC (Bld) 28.1 % Normal 19-41 [facility] Comment on above: Performed By: #### L 500.2500, L100.0100 #### [facility] [address] [place], [address] MCH (RBC) [Entitic mass] 29.9 pg Normal 27.0-32.0 [facility] Comment on above: Performed By: #### L 500.2500, L100.0100 #### [facility] [address] [place], [address] MCHC (RBC) [Mass/Vol] 32.6 g/dL Normal 32-36 [facility] Comment on above: Performed By: #### L 500.2500, L100.0100 #### [facility] [address] [place], [address] MCV (RBC) [Entitic vol] 91.6 fL Normal 81-99 [facility] Comment on above: Performed By: #### L 500.2500, L100.0100 #### [facility] [address] [place], [address] Monocytes/100 WBC (Bld) 9.7 % Normal 0-10 [facility] Comment on above: Performed By: #### L 500.2500, L100.0100 #### [facility] [address] [place], [address] Neutrophils/100 WBC (Bld) 59.8 % Normal 47-70 [facility] Comment on above: Performed By: #### L 500.2500, L100.0100 #### [facility] [address] [place], [address] Nucleated RBC (Bld) [#/Vol] 0 10*3/uL Normal 0-5 [facility] Comment on above: Performed By: #### L 500.2500, L100.0100 #### [facility] [address] [place], [address] Platelet mean volume (Bld) [Entitic vol] 9.7 fL Normal 6.2-12.0 [facility] Comment on above: Performed By: #### L 500.2500, L100.0100 #### [facility] [address] [place], [address] Platelets (Bld) [#/Vol] 282 10*3/uL Normal 150-450 [facility] Comment on above: Performed By: #### L 500.2500, L100.0100 #### [facility] [address] [place], [address] RBC (Bld) [#/Vol] 4.89 10*6/uL Normal 4.2-5.4 [facility] Comment on above: Performed By: #### L 500.2500, L100.0100 #### [facility] [address] [place], [address] RDW SD 42.9 fl Normal 35.1-43.9 [facility] Comment on above: Performed By: #### L 500.2500, L100.0100 #### [facility] [address] [place], [address] WBC (Bld) [#/Vol] 8.9 10*3/uL Normal 4.4-11.0 [facility] Comment on above: Performed By: #### L 500.2500, L100.0100 #### [facility] [address] [place], [address] Cardiology Visit Reporton Cardiology Visit Report [facility] [address] [place] [address] OFFICE VISIT Date of Service: 04/11/25 MR#: [id number] Acct: [id number] Name: BEULAH MCPHERSON Rep #: [id number] : 1955 Provider: VALENTÍN amezquita Age/Sex: 69/F [place] [facility] [place] Status: Signed HPI HPI History of Present Illness Details: Beulah Mcpherson is a 69 year old female with history of atrial fibrillation, nonischemic cardiomyopathy, and hyperlipidemia. In February 2023 she underwent radiofrequency ablation of her atrial fibrillation flutter. 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 A 30-day event monitor post procedure demonstrated PVCs, PACs and no evidence of atrial fibrillation. The patient was seen in the office because she had what she describes as a near syncopal episode feeling dizzy and weak lasted about 5 to 7 seconds on August 20, 2023. She did not fall down. She did not hit her it was not true syncope that lasted she says less than 10 seconds. She reports this felt identical to an episode she had back in November 2022 prior to her intervention where she was in V. tach felt to be related to flecainide therapy. The patient's echocardiogram showed an EF of 25% remotely however after her ablation in July 2019 4 repeat limited echo showed an ejection fraction of 55 to 60%. Your member she also has normal coronary arteries from a cardiac catheterization in September 2022 and she tells me that she has recently undergone a right knee surgery. She tells me that she has done quite well with no symptomatology. She denies chest, arm, jaw, or neck discomfort. She denies palpitations. She denies bilateral lower extremity edema, but states left lower edema. She denies claudication. She denies shortness of breath with activity, shortness of breath at rest, orthopnea, or PND. She denies chronic cough. She denies significant, sudden weight gain. She denies lightheadedness, dizziness, near-syncope, or syncope. She denies blood in urine, blood in stool, or epistaxis. He denies fever with chills. She denies myalgia. She denies fatigue. Her exercise level has remained stable. 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 Is patient in pain?: No Allergies piperacillin (From Zosyn) Allergy (Verified 04/11/25 11:17) Rash tazobactam (From Zosyn) Allergy (Verified 04/11/25 11:17) Rash amiodarone Adverse Reaction (Intermediate, Verified 04/11/25 11:17) Lightheaded, feeling of impending doom diltiazem Adverse Reaction (Mild, Verified 04/11/25 11:17) edema Medications ???Medication ???Instructions ???Recorded ???Confirmed ???Type Handicap Placard #1 ea 09/01/21 05/15/24 Rx miconazole nitrate 2 % topical 1 applic topical BID PRN skin 11/1904/11/25 History powder acetaminophen 500 mg tablet 1,000 mg (2 x 500 mg) PO Q6H #100 02/23/24 04/11/25 Rx tabs apixaban 5 mg tablet (Eliquis) 5 mg PO BID BLOOD THINNER #60 tabs 04/18/24 02/23/25 Rx sacubitril 24 mg-valsartan 26 mg 1 tab PO BID HEART #60 tabs 04/11/25 Rx tablet (Entresto) Handicap Placard #1 ea 04/19/24 05/15/24 Rx metoprolol tartrate 50 mg tablet 50 mg PO BID BP #180 tabs 08/16/24 04/11/25 Rx tirzepatide (weight loss) 2.5 2.5 mg (0.5 mL) subcut QWEEK #2 mL 04/11/25 04/11/25 Rx mg/0.5 mL subcutaneous pen injector (Zepbound) Ejection fraction %: 60 Have you fallen in the past year?: No Nurse's Note: refused weight PFSH Medical History Borderline type 2 diabetes mellitus Loose, teeth Wears glasses Post-menopausal Ambulates with cane Fatty liver Anemia Excessive bleeding Back pain Sleep apnea Leg cramps History of pain when walking History of echocardiogram History of stress test Hypertension Cardiology follow-up encounter History of CHF (congestive heart failure) History of atrial fibrillation UTI (urinary tract infection) Malaise and fatigue Cervical radiculopathy Foot drop, right Right knee pain Health care maintenance Lumbar radiculopathy History of kidney stones Atrial fibrillation with rapid ventricular response (08/01/21) HFrEF (heart failure with reduced ejection fraction) Hyperlipidemia Kidney stones Former smoker Migraines COVID Osteoarthritis (arthritis due to wear and tear of joints) Arthritis Surgical History History of tooth extraction History of total right hip replacement Hx of surgical procedure History of cardiac r (more content not included)... Normal [facility] Knee 3 Viewson 02-23-2025 Knee 3 Views [facility] Services [address] [place] [address] Knee 3 Views MR#: [id number] Acct: [id number] Name: BEULAH MCPHERSON Rep #: [id number] : 1955 F 69 From: Jennifer Powers PCP: Dr. Yesi Clinton MD Status: DEP AMB Study: Knee 3 Views Date of Exam: 02/23/25 Exam# [id number] Ordering Dr: Glen Miguel DO PROCEDURE: KNEE 3 VIEWS 02/23/2025 REASON FOR EXAM: 1 YR POST OP TECHNIQUE: Procedure Code: RADPAT Modality: DX Procedure: KNEE 3 VIEWS Laterality: Right COMPARISON: Right knee studies dated 04/03/2024, 02/22/2024, and 06/09/2022 FINDINGS: Three views of the right knee were obtained. Bones: Diffuse osteopenia of the osseous structures are noted. No acute fractures or dislocations are noted. Joints: A total knee arthroplasty has been performed. Effusion: No effusion. Soft tissues: Soft tissues are unremarkable. Other: The radiopaque hardware is intact without evidence of fracture or loosening. There is a large calcification posterior to the knee measuring 2.4 x 1.6 cm. RAD/Knee 3 Views IMPRESSION: The radiopaque hardware appears to be intact without evidence of fracture or loosening. Reading Location: [id number] CC: Dr. Yesi Clinton MD; Dr. Glen Miguel DO Real Estate Operations Manager: Signed Normal [facility] Orthopedic Visit Reporton Orthopedic Visit Report [facility] [address] [place] [address] OFFICE VISIT Date of Service: 02/23/25 MR#: [id number] Acct: [id number] Name: BEULAH MCPHERSON Rep #: [id number] : 1955 Provider: Dr. Glen jimenez DO Age/Sex: 69/F [place] [facility] [place] Status: Signed Intake Vital Signs 04/18/24 13:17 Height 5 ft 7 in Intake Visit Reasons: RIGHT KNEE Chief Complaint: 1 year post op Accompanied by: Self Is patient in pain?: No Allergies piperacillin (From Zosyn) Allergy (Verified 02/23/25 10:33) Rash tazobactam (From Zosyn) Allergy (Verified 02/23/25 10:33) Rash amiodarone Adverse Reaction (Intermediate, Verified 02/23/25 10:33) Lightheaded, feeling of impending doom diltiazem Adverse Reaction (Mild, Verified 02/23/25 10:33) edema Medications ???Medication ???Instructions ???Recorded ???Confirmed ???Type Handicap Placard #1 ea 09/01/21 05/15/24 Rx miconazole nitrate 2 % topical 1 applic topical BID PRN skin 11/1902/23/25 History powder acetaminophen 500 mg tablet 1,000 mg (2 x 500 mg) PO Q6H #100 02/23/24 02/23/25 Rx tabs apixaban 5 mg tablet (Eliquis) 5 mg PO BID BLOOD THINNER #60 tabs 04/18/24 02/23/25 Rx sacubitril 24 mg-valsartan 26 mg 1 tab PO BID HEART #60 tabs 02/23/25 Rx tablet (Entresto) Handicap Placard #1 ea 04/19/24 05/15/24 Rx metoprolol tartrate 50 mg tablet 50 mg PO BID BP #180 tabs 08/16/24 02/23/25 Rx Have you fallen in the past year?: No PFSH Medical History Borderline type 2 diabetes mellitus Loose, teeth Wears glasses Post-menopausal Ambulates with cane Fatty liver Anemia Excessive bleeding Back pain Sleep apnea Leg cramps History of pain when walking History of echocardiogram History of stress test Hypertension Cardiology follow-up encounter History of CHF (congestive heart failure) History of atrial fibrillation UTI (urinary tract infection) Malaise and fatigue Cervical radiculopathy Foot drop, right Right knee pain Health care maintenance Lumbar radiculopathy History of kidney stones Atrial fibrillation with rapid ventricular response (08/01/21) HFrEF (heart failure with reduced ejection fraction) Hyperlipidemia Kidney stones Former smoker Migraines COVID Osteoarthritis (arthritis due to wear and tear of joints) Arthritis Surgical History History of tooth extraction History of total right hip replacement Hx of surgical procedure History of cardiac radiofrequency ablation (RFA) (03/30/23) Hx of cardiac catheterization ( 10/27/22) History of cardioversion (01/08/22) History of laminectomy ( 2016) History of total left knee replacement H/O total hip arthroplasty Family History Father CVA (cerebral vascular accident) Colon cancer Social History Smoking Status: Former smoker how long ago did patient quit smokin years ago alcohol intake: never substance use type: does not use caffeine: Yes Type: coffee Number of servings: 1 HPI RIGHT KNEE Details: This documentation accurately reflects the service provided and the decisions made by me, Dr. Glen Miguel, DO 02/23/25 0819. Part of today???s visit was documented by Alondra Brown RN, acting as scribe. BEULAH MCPHERSON is a 69 year old F here today for 1 year post-op right TKA dos: 02/22/24. She reports doing well. She denies pain in her knee. She occasionally will have an achy pain that is dependent on activity. She denies issues doing any of her ADL's. She reports an ongoing issue with bilateral carpal tunnel that has progressively been getting worse over the last year. Patient has been experiencing carpal tunnel syndrome, numbness tingling and burning in all but the fifth digits. The right hand is worse than the left. She is LHD. She gets numbness/tingling in both hands except in the pinky finger. She does wear braces at night for a year now. At times she will have symptoms up past the wrist and goes up to the elbow. She has had symptoms up to her shoulders at time. Ortho Exam General General: Yes no acute distress and Yes well groomed Neurologic: Yes alert and Yes oriented x3 Psychologic: Yes reasonable and appropriate Right Wrist/Hand Skin/Wound: Yes CDI, No Swelling, No Ecchymosis, Yes nail intact and Yes capillary refill normal Right Wrist: Yes Durken's Test, Tinel's and Phalen's WRIST: supination 80 pronation full wrist EXT 82 wrist FLEX 60 no atrophy transverse scar on right volar wrist from prior tendon repair hypertrophy of DIP joints Left Wrist/Hand Skin/Wound: Yes CDI, No Swelling and No Ecchymos (more content not included)... Normal [facility] Orthopedic Visit Reporton Orthopedic Visit Report [facility] [address] [place] [address] OFFICE VISIT Date of Service: 05/15/24 MR#: [id number] Acct: [id number] Name: BEULAH MCPHERSON Rep #: [id number] : 1955 Provider: Dr. Glen Pérez so, DO Age/Sex: 68/F [place] [facility] [place] Status: Signed Intake Vital Signs 02/22/24 16:15 04/18/24 13:17 Height 5 ft 7 in 5 ft 7 in Weight: 228 lb BMI 35.6 BP 129/62 H Blood Pressure Location Lt brachial Position Sitting Respiration 16 Pulse 70 Pulse Source Monitor Intake Visit Reasons: RIGHT KNEE Chief Complaint: f/u Allergies piperacillin (From Zosyn) Allergy (Verified 05/15/24 10:55) Rash tazobactam (From Zosyn) Allergy (Verified 05/15/24 10:55) Rash amiodarone Adverse Reaction (Intermediate, Verified 05/15/24 10:55) Lightheaded, feeling of impending doom diltiazem Adverse Reaction (Mild, Verified 05/15/24 10:55) edema Medications ???Medication ???Instructions ???Recorded ???Confirmed ???Type Handicap Placard #1 ea 09/01/21 05/15/24 Rx miconazole nitrate 2 % topical 1 applic topical BID PRN skin 02/03/22 05/15/24 History powder acetaminophen 500 mg tablet 1,000 mg (2 x 500 mg) PO Q6H #100 02/23/24 05/15/24 Rx tabs apixaban 5 mg tablet (Eliquis) 5 mg PO BID BLOOD THINNER #60 tabs 04/18/24 05/15/24 Rx metoprolol tartrate 25 mg tablet 50 mg (2 x 25 mg) PO BID BP #180 04/18/24 05/15/24 Rx tabs sacubitril 24 mg-valsartan 26 mg 1 tab PO BID HEART #60 tabs 04/18/24 05/15/24 Rx tablet (Entresto) Handicap Placard #1 ea 04/19/24 05/15/24 Rx Have you fallen in the past year?: No PFSH Medical History (Updated 05/15/24 @ 11:[address] Glen Miguel DO) Borderline type 2 diabetes mellitus Loose, teeth Wears glasses Post-menopausal Ambulates with cane Fatty liver Anemia Excessive bleeding Back pain Sleep apnea Leg cramps History of pain when walking History of echocardiogram History of stress test Hypertension Cardiology follow-up encounter History of CHF (congestive heart failure) History of atrial fibrillation UTI (urinary tract infection) Malaise and fatigue Cervical radiculopathy Foot drop, right Right knee pain Health care maintenance Lumbar radiculopathy History of kidney stones Atrial fibrillation with rapid ventricular response (08/01/21) HFrEF (heart failure with reduced ejection fraction) Hyperlipidemia Kidney stones Former smoker Migraines COVID Osteoarthritis (arthritis due to wear and tear of joints) Arthritis Surgical History History of tooth extraction History of total right hip replacement Hx of surgical procedure History of cardiac radiofrequency ablation (RFA) (03/30/23) Hx of cardiac catheterization ( 10/27/22) History of cardioversion (01/08/22) History of laminectomy ( 2015) History of total left knee replacement H/O total hip arthroplasty Family History Father CVA (cerebral vascular accident) Colon cancer Social History Smoking Status: Former smoker how long ago did patient quit smokin years ago alcohol intake: never substance use type: does not use caffeine: Yes Type: coffee Number of servings: 1 HPI RIGHT KNEE Details: This documentation accurately reflects the service provided and the decisions made by me, Dr. Glen Miguel DO 05/15/24 0743. Part of today???s visit was documented by Johanny TAFOYA, acting as scribe. BEULAH MCPHERSON is a 68 year old F here today for 12 week post-op right TKA dos: 02/22/24. She states that she is doing well and is better than she was before surgery. She states that today is her last day of PT for her final evaluation. She is very happy with the progress of her knee and has no complaints or concerns with it. She is still having issues with the right hip to recall she did have a hip replacement by another surgeon many years ago and beginning a couple weeks after that she started having weakness with hip abduction she also has a history of a right lower extremity foot drop and severe foraminal stenosis and back pathology for which she has had a previous back surgery. She has completed physical therapy for hip abduction but her lack of progress and continued weakness is her main concern. She is ambulating with the cane due to the continued hip pain. She did have her hip replaced by Dr. Chatman in [place] in 2009. She has had no signs of infection or DVT Ortho Exam General General: Yes no acute distress Neurologic: Yes alert and Yes oriented x3 Psychologic: Yes reasonable and appropriate Right Knee Skin/Wound: No erythema, No ecchymosis and No swelling Knee ROM: Yes RO (more content not included)... Normal [facility] CBC W/Diff, Automatedon 11-2 Absolute Lymph 2.35 X10 3/uL Normal 0.83-4.51 [facility] Comment on above: Performed By: #### L 100.0100, L501.9985, L500.4100, L500.4050 #### [facility] [address] [place], [address] Absolute Neut 3.9 X10 3/uL Normal 2.0-7.7 [facility] Comment on above: Performed By: #### L 100.0100, L501.9985, L500.4100, L500.4050 #### [facility] [address] [place], [address] Basophils/100 WBC (Bld) 0.6 % Normal 0-1 [facility] Comment on above: Performed By: #### L 100.0100, L501.9985, L500.4100, L500.4050 #### [facility] [address] [place], [address] Eosinophils/100 WBC (Bld) 1.7 % Normal 0-5 [facility] Comment on above: Performed By: #### L 100.0100, L501.9985, L500.4100, L500.4050 #### [facility] [address] [place], [address] Erythrocyte distribution width (RBC) [Ratio] 13.3 % Normal 11.6-14.6 [facility] Comment on above: Performed By: #### L 100.0100, L501.9985, L500.4100, L500.4050 #### [facility] [address] [place], [address] Hematocrit (Bld) [Volume fraction] 39.5 % Normal 37-47 [facility] Comment on above: Performed By: #### L 100.0100, L501.9985, L500.4100, L500.4050 #### [facility] [address] [place], [address] Hemoglobin (Bld) [Mass/Vol] 12.5 g/dL Normal 12.0-15.0 [facility] Comment on above: Performed By: #### L 100.0100, L501.9985, L500.4100, L500.4050 #### [facility] [address] [place], [address] IG% 0.100 Normal 0.0-0.9 [facility] Comment on above: Result Comment: IG% - Immature Granulocytes (promyelocytes, myelocytes and metamyelocytes) > 1% indicates that a LEFT SHIFT is Present. Performed By: #### L 100.0100, L501.9985, L500.4100, L500.4050 #### [facility] [address] [place], [address] Lymphocytes/100 WBC (Bld) 33.5 % Normal 19-41 [facility] Comment on above: Performed By: #### L 100.0100, L501.9985, L500.4100, L500.4050 #### [facility] [address] [place], [address] MCH (RBC) [Entitic mass] 29.1 pg Normal 27.0-32.0 [facility] Comment on above: Performed By: #### L 100.0100, L501.9985, L500.4100, L500.4050 #### [facility] [address] [place], [address] MCHC (RBC) [Mass/Vol] 31.6 g/dL Low 32-36 [facility] Comment on above: Performed By: #### L 100.0100, L501.9985, L500.4100, L500.4050 #### [facility] [address] [place], [address] MCV (RBC) [Entitic vol] 92.1 fL Normal 81-99 [facility] Comment on above: Performed By: #### L 100.0100, L501.9985, L500.4100, L500.4050 #### [facility] [address] [place], [address] Monocytes/100 WBC (Bld) 7.8 % Normal 0-10 [facility] Comment on above: Performed By: #### L 100.0100, L501.9985, L500.4100, L500.4050 #### [facility] [address] [place], [address] Neutrophils/100 WBC (Bld) 56.3 % Normal 47-70 [facility] Comment on above: Performed By: #### L 100.0100, L501.9985, L500.4100, L500.4050 #### [facility] [address] [place], [address] Nucleated RBC (Bld) [#/Vol] 0 10*3/uL Normal 0-5 [facility] Comment on above: Performed By: #### L 100.0100, L501.9985, L500.4100, L500.4050 #### [facility] [address] [place], [address] Platelet mean volume (Bld) [Entitic vol] 9.6 fL Normal 6.2-12.0 [facility] Comment on above: Performed By: #### L 100.0100, L501.9985, L500.4100, L500.4050 #### [facility] [address] [place], [address] Platelets (Bld) [#/Vol] 258 10*3/uL Normal 150-450 [facility] Comment on above: Performed By: #### L 100.0100, L501.9985, L500.4100, L500.4050 #### [facility] [address] [place], [address] RBC (Bld) [#/Vol] 4.29 10*6/uL Normal 4.2-5.4 [facility] Comment on above: Performed By: #### L 100.0100, L501.9985, L500.4100, L500.4050 #### [facility] [address] [place], [address] RDW SD 45.4 fl High 35.1-43.9 [facility] Comment on above: Performed By: #### L 100.0100, L501.9985, L500.4100, L500.4050 #### [facility] [address] [place], [address] WBC (Bld) [#/Vol] 7.0 10*3/uL Normal 4.4-11.0 [facility] Comment on above: Performed By: #### L 100.0100, L501.9985, L500.4100, L500.4050 #### [facility] [address] [place], [address] Comprehensive Metabolic Prof ilon 04-20-2024 Albumin [Mass/Vol] 3.6 g/dL Normal 3.2-5.0 [facility] Comment on above: Performed By: #### L 100.0100, L501.9985, L500.4100, L500.4050 #### [facility] [address] [place], [address] Albumin/Globulin [Mass ratio] 0.9 {ratio} Normal 0.9-2.4 [facility] Comment on above: Performed By: #### L 100.0100, L501.9985, L500.4100, L500.4050 #### [facility] [address] [place], [address] ALK P 60 U/L Normal 45-117 [facility] Comment on above: Performed By: #### L 100.0100, L501.9985, L500.4100, L500.4050 #### [facility] [address] [place], [address] ALT [Catalytic activity/Vol] 14 U/L Normal 13-56 [facility] Comment on above: Performed By: #### L 100.0100, L501.9985, L500.4100, L500.4050 #### [facility] [address] [place], [address] AST [Catalytic activity/Vol] 13 U/L Low 15-37 [facility] Comment on above: Performed By: #### L 100.0100, L501.9985, L500.4100, L500.4050 #### [facility] [address] [place], [address] Bilirubin [Mass/Vol] 0.40 mg/dL Normal 0.20-1.00 [facility] Comment on above: Result Comment: For patients on eltrombopag therapy, use of Dimension [place] TBIL is not recommended. Performed By: #### L 100.0100, L501.9985, L500.4100, L500.4050 #### [facility] [address] [place], [address] BUN/CRE 21.0 RATIO High 10-20 [facility] Comment on above: Performed By: #### L 100.0100, L501.9985, L500.4100, L500.4050 #### [facility] [address] [place], [address] CA,Total 9.0 mg/dL Normal 8.5-10.1 [facility] Comment on above: Performed By: #### L 100.0100, L501.9985, L500.4100, L500.4050 #### [facility] [address] [place], [address] Chloride [Moles/Vol] 108 mmol/L High 98-107 [facility] Comment on above: Performed By: #### L 100.0100, L501.9985, L500.4100, L500.4050 #### [facility] [address] [place], [address] CO2 [Moles/Vol] 26.0 mmol/L Normal 21.0-32.0 [facility] Comment on above: Performed By: #### L 100.0100, L501.9985, L500.4100, L500.4050 #### [facility] [address] [place], [address] Creatinine [Mass/Vol] 0.90 mg/dL Normal 0.55-1.02 [facility] Comment on above: Result Comment: The validity of the calculated GFR GFRAA in patients over 70 years has not been determined. Clinical correlation is essential. Performed By: #### L 100.0100, L501.9985, L500.4100, L500.4050 #### [facility] [address] [place], [address] EST GFR - AA 79 mL/min Normal >60 [facility] Comment on above: Result Comment: Afri can Peruvian GFR Calc Performed By: #### L 100.0100, L501.9985, L500.4100, L500.4050 #### [facility] [address] [place], [address] GAP 4 Low 5-15 [facility] Comment on above: Performed By: #### L 100.0100, L501.9985, L500.4100, L500.4050 #### [facility] [address] [place], [address] GFR/1.73 sq M.predicted among non-blacks MDRD (S/P/Bld) [Vol rate/Area] 65 mL/min/{1.73_m2} Normal >60 [facility] Comment on above: Result Comment: Non- GFR Calc Performed By: #### L 100.0100, L501.9985, L500.4100, L500.4050 #### [facility] [address] [place], [address] Globulin (S) [Mass/Vol] 4.0 g/dL Normal 2.2-4.2 [facility] Comment on above: Performed By: #### L 100.0100, L501.9985, L500.4100, L500.4050 #### [facility] [address] [place], [address] Glucose [Mass/Vol] 99 mg/dL Normal 74-106 [facility] Comment on above: Performed By: #### L 100.0100, L501.9985, L500.4100, L500.4050 #### [facility] [address] [place], [address] Potassium [Moles/Vol] 4.1 mmol/L Normal 3.5-5.1 [facility] Comment on above: Performed By: #### L 100.0100, L501.9985, L500.4100, L500.4050 #### [facility] [address] [place], [address] Sodium [Moles/Vol] 139 mmol/L Normal 136-145 [facility] Comment on above: Performed By: #### L 100.0100, L501.9985, L500.4100, L500.4050 #### [facility] [address] [place], [address] T PROT 7.6 g/dL Normal 6.4-8.2 [facility] Comment on above: Performed By: #### L 100.0100, L501.9985, L500.4100, L500.4050 #### [facility] [address] [place], [address] Urea nitrogen [Mass/Vol] 19 mg/dL High 7-18 [facility] Comment on above: Performed By: #### L 100.0100, L501.9985, L500.4100, L500.4050 #### [facility] [address] [place], [address] Hemoglobin A1con 04-20-2024 HbA1c (Bld) [Mass fraction] 5.4 % Normal 3.8-5.6 [facility] Comment on above: Result Comment: Norm al < 5.7 % Prediabetic 5.7 - 6.4 % Diabetic >or= 6.5 % Please note range changes. Performed By: #### L 100.0100, L501.9985, L500.4100, L500.4050 #### [facility] [address] [place], [address] Lipid Profileon 04-20-2024 Cholesterol [Mass/Vol] 195 mg/dL Normal 200 [facility] Comment on above: Result Comment: <200 mg/dL Desirable 200-240 mg/dL Borderline >240 mg/dL High Risk Performed By: #### L 100.0100, L501.9985, L500.4100, L500.4050 #### [facility] [address] [place], [address] Cholesterol in HDL [Mass/Vol] 48 mg/dL Normal [facility] Comment on above: Result Comment: The drugs N-Acetylcysteine and Metamizole may falsely depress this assay. Reference Range HDL <40 mg/dL Low HDL Cholesterol HDL >or= 60 mg/dL High HDL Cholesterol Performed By: #### L 100.0100, L501.9985, L500.4100, L500.4050 #### [facility] [address] [place], [address] Cholesterol in LDL [Mass/Vol] 114 mg/dL Normal 0-130 [facility] Comment on above: Performed By: #### L 100.0100, L501.9985, L500.4100, L500.4050 #### [facility] [address] [place], [address] Cholesterol in VLDL [Mass/Vol] 33 mg/dL Normal 5-40 [facility] Comment on above: Performed By: #### L 100.0100, L501.9985, L500.4100, L500.4050 #### [facility] [address] [place], [address] Triglyceride [Mass/Vol] 164 mg/dL Normal [facility] Comment on above: Result Comment: The drugs N-Acetylcysteine and Metamizole may falsely depress this assay. Serum Triglycerides Reference Interval Normal <150 mg/dL Borderline high 150 - 199 mg/dL High 200 - 499 mg/dL Very High > or = 500 mg/dL Performed By: #### L 100.0100, L501.9985, L500.4100, L500.4050 #### [facility] [address] [place], [address] Internal Medicine Office Vis itoekta 04-19-2024 Internal Medicine Office Visit [facility] [address] [place] [address] [place] [address] OFFICE VISIT Date of Service: 04/19/24 MR#: [id number] Acct: [id number] Name: BEULAH MCPHERSON Rep #: [id number] : 1955 Provider: Dr. 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 Delivery Driver Required: No Accompanied by: Self Is patient in pain?: No Allergies piperacillin (From Zosyn) Allergy (Verified 04/19/24 13:38) Rash tazobactam (From Zosyn) Allergy (Verified 04/19/24 13:38) Rash amiodarone Adverse Reaction (Intermediate, Verified 04/19/24 13:38) Lightheaded, feeling of impending doom diltiazem Adverse Reaction (Mild, Verified 04/19/24 13:38) edema Medications ???Medication ???Instructions ???Recorded ???Confirmed ???Type Handicap Placard #1 ea 09/01/21 04/19/24 Rx miconazole nitrate 2 % topical 1 applic topical BID PRN skin 02/03/22 04/19/24 History powder acetaminophen 500 mg tablet 1,000 mg (2 x 500 mg) PO Q6H #100 02/23/24 04/19/24 Rx tabs apixaban 5 mg tablet (Eliquis) 5 mg PO BID BLOOD THINNER #60 tabs 04/18/24 04/19/24 Rx metoprolol tartrate 25 mg tablet 50 mg (2 x 25 mg) PO BID BP #180 04/18/24 04/19/24 Rx tabs sacubitril 24 mg-valsartan 26 mg 1 tab PO BID HEART #60 tabs 04/18/24 04/19/24 Rx tablet (Entresto) Handicap Placard #1 ea 04/19/24 04/19/24 Rx Have you fallen in the past year?: No PFSH Medical History (Updated 04/19/24 @ 17:[address] Yesi Clinton MD) Borderline type 2 diabetes mellitus Loose, teeth Wears glasses Post-menopausal Ambulates with cane Fatty liver Anemia Excessive bleeding Back pain Sleep apnea Leg cramps History of pain when walking History of echocardiogram History of stress test Hypertension Cardiology follow-up encounter History of CHF (congestive heart failure) History of atrial fibrillation UTI (urinary tract infection) Malaise and fatigue Cervical radiculopathy Foot drop, right Right knee pain Health care maintenance Lumbar radiculopathy History of kidney stones Atrial fibrillation with rapid ventricular response (08/01/21) HFrEF (heart failure with reduced ejection fraction) Hyperlipidemia Kidney stones Former smoker Migraines COVID Osteoarthritis (arthritis due to wear and tear of joints) Arthritis Surgical History History of tooth extraction History of total right hip replacement Hx of surgical procedure History of cardiac radiofrequency ablation (RFA) (03/30/23) Hx of cardiac catheterization ( 10/27/22) History of cardioversion (01/08/22) History of laminectomy ( 2015) History of total left knee replacement H/O total hip arthroplasty Family History Father CVA (cerebral vascular accident) Colon cancer Social History Smoking Status: Former smoker how long ago did patient quit smokin years ago alcohol intake: never substance use type: does not use caffeine: Yes Type: coffee Number of servings: 1 HPI HPI Chief Complaint: f/u Details: BEULAH MCPHERSON, is a 68 F who presents to the office today for follow-up of her chronic conditions. No acute concerns at this time. Doing really well status post right knee surgery. Still in therapy. Pain is improving and surgical site has healed well. History of hypertension, blood pressure today 124/72 mmHg. No chest pain, palpitation or shortness of breath. Also history of atrial fibrillation, has remained in sinus rhythm post cardioversion. Currently on apixaban and metoprolol. Other chronic medical conditions are stable. ROS Const Constitutional: No body ache, chills, excessive sweating, fatigue, fever(s), frequent falls, headache(s), snoring, weakness or change in appetite Eyes Eyes: No blurry vision, change in vision, floaters, visual disturbances, eye pain or Light sensitivity ENT ENT: No abnormal hearing, ear or mastoid pain, tinnitus, balance problems, nosebleed/epistaxis, nasal congestion, headache(s), neck pain or sore throat Resp Respiratory: No cough, excessive phlegm production, pain on inspiration, shortness of breath, snoring or wheezing Cardio Cardiology: No chest pain at rest, chest pain with exertion, excessive sweating, dyspnea on exertion, lightheadedness, orthopnea or palpitations Gastro GI: No abdominal pain, change in bowel habits, co (more content not included)... Normal [facility] Cardiology Visit Reporton Cardiology Visit Report [facility] [address] [place] [address] OFFICE VISIT Date of Service: 04/18/24 MR#: [id number] Acct: [id number] Name: BEULAH MCPHERSON Rep #: [id number] 3 : 1955 Provider: Dr. Skip Rangel MD Age/Sex: 68/F [place] [facility] [place] Status: Signed HPI HPI History of Present Illness Details: Beulah Mcpherson is a 68 year old female with history of atrial fibrillation, nonischemic cardiomyopathy, and hyperlipidemia. In February 2023 she underwent radiofrequency ablation of her atrial fibrillation flutter. 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 A 30-day event monitor post procedure demonstrated PVCs, PACs and no evidence of atrial fibrillation. The patient was seen in the office because she had what she describes as a near syncopal episode feeling dizzy and weak lasted about 5 to 7 seconds on August 20, 2023. She did not fall down. She did not hit her it was not true syncope that lasted she says less than 10 seconds. She reports this felt identical to an episode she had back in November 2022 prior to her intervention where she was in V. tach felt to be related to flecainide therapy. The patient's echocardiogram showed an EF of 25% remotely however after her ablation in July 2019 4 repeat limited echo showed an ejection fraction of 55 to 60%. Your member she also has normal coronary arteries from a cardiac catheterization in September 2022 and she tells me that she has recently undergone a right knee surgery. She tells me that she has done quite well with no symptomatology. She states an episode of jaw pain that occurred at rest and lasted for minutes. She noticed 2 episodes of palpitations and such that she took extra dose of metoprolol. She described this as a fast sensation. She denies bilateral lower extremity edema or claudication. She denies shortness breath with activity, shortness of breath at rest, orthopnea, cough, or PND. She acknowledges occasional lightheadedness. She denies dizziness, near-syncope, or syncope. She denies fatigue. Intake Vital Signs 03/01/23 09:28 02/22/24 16:15 04/18/24 13:17 Height 5 ft 7.5 in 5 ft 7 in 5 ft 7 in Weight: 228 lb BMI 35.6 BP 129/62 H Blood Pressure Location Lt brachial Position Sitting Respiration 16 Pulse 70 Pulse Source Monitor Intake Visit Reasons: 1 Y FU Accompanied by: Self Is patient in pain?: No Allergies piperacillin (From Zosyn) Allergy (Verified 04/18/24 13:25) Rash tazobactam (From Zosyn) Allergy (Verified 04/18/24 13:25) Rash amiodarone Adverse Reaction (Intermediate, Verified 04/18/24 13:25) Lightheaded, feeling of impending doom diltiazem Adverse Reaction (Mild, Verified 04/18/24 13:25) edema Medications ???Medication ???Instructions ???Recorded ???Confirmed ???Type Handicap Placard #1 ea 09/01/21 04/03/24 Rx miconazole nitrate 2 % topical 1 applic topical BID PRN skin 02/03/22 04/18/24 History powder acetaminophen 500 mg tablet 1,000 mg (2 x 500 mg) PO Q6H #100 02/23/24 04/18/24 Rx tabs apixaban 5 mg tablet (Eliquis) 5 mg PO BID BLOOD THINNER #60 tabs 04/18/24 04/18/24 Rx metoprolol tartrate 25 mg tablet 50 mg (2 x 25 mg) PO BID BP #180 04/18/24 04/18/24 Rx tabs sacubitril 24 mg-valsartan 26 mg 1 tab PO BID HEART #60 tabs 04/18/24 04/18/24 Rx tablet (Entresto) Have you fallen in the past year?: No PFSH Medical History Loose, teeth Wears glasses Post-menopausal Ambulates with cane Fatty liver Anemia Excessive bleeding Back pain Sleep apnea Leg cramps History of pain when walking History of echocardiogram History of stress test Hypertension Cardiology follow-up encounter History of CHF (congestive heart failure) History of atrial fibrillation UTI (urinary tract infection) Malaise and fatigue Cervical radiculopathy Foot drop, right Right knee pain Health care maintenance Lumbar radiculopathy History of kidney stones Atrial fibrillation with rapid ventricular response (08/01/21) HFrEF (heart failure with reduced ejection fraction) Hyperlipidemia Kidney stones Former smoker Migraines COVID Osteoarthritis (arthritis due to wear and tear of joints) Arthritis Surgical History History of tooth extraction History of total right hip replacement Hx of surgical procedure History of cardiac radiofrequency ablation (RFA) (03/30/23) Hx of cardiac catheterization ( 10/27/22) History of cardioversion (01/08/22) History of laminectomy ( 2015) History of total left knee replacement H/O total hip arthroplasty Family History Father CVA (cerebral vascular accident) Colon cancer Social His (more content not included)... Normal [facility] Absolute lymphocyte countOrd ered By: Ashkan Remy on 08-26-2023 Lymphocytes Auto (Unsp spec) [#/Vol] 2.22 10*3/uL 0.83-4.51 [facility] Automated lymphocyte count a s percentage of total leukocytesOrdered By: Ashkan Remy on 08-26-2023 Lymphocytes/100 WBC Auto (Unsp spec) 29.2 % 19-41 [facility] Basophil percentageOrdered B y: Ashkan Remy on 08-26-2023 Basophils/100 WBC (Bld) 0.7 % 0-1 [facility] Bilirubin [Mass/Vol] 0.70 mg/dL 0.20-1.00 [facility] Comment on above: For patients on eltr ombopag therapy, use of Dimension [place] TBIL is not recommended. Chloride [Moles/Vol] 107 mmol/L 98-107 [facility] Eosinophils/100 WBC (Bld) 2.5 % 0-5 [facility] Glucose [Mass/Vol] 103 mg/dL 74-106 [facility] Comment on above: Fasting Glucose resu lt from 100 to 125 mg/dL suggests IMPAIRED HOMEOSTASIS per A.D.A. criteria. Hemoglobin (Bld) [Mass/Vol] 14.0 g/dL 12.0-15.0 [facility] Monocytes/100 WBC (Bld) 8.3 % 0-10 [facility] Neutrophils (Bld) [#/Vol] 4.5 10*3/uL 2.0-7.7 [facility] Neutrophils/100 WBC (Bld) 59.0 % 47-70 [facility] Potassium [Moles/Vol] 4.3 mmol/L 3.5-5.1 [facility] Protein [Mass/Vol] 7.8 g/dL 6.4-8.2 [facility] Sodium [Moles/Vol] 138 mmol/L 136-145 [facility] WBC (Bld) [#/Vol] 7.6 10*3/uL 4.4-11.0 [facility] Determination of erythrocyte mean corpuscular volume (MCV)Ordered By: Ashkan Remy on 08-26-2023 MCV (RBC) [Entitic vol] 92.2 fL 81-99 [facility] Erythrocyte distribution wid th ratioOrdered By: Ashkan Remy on 08-26-2023 Erythrocyte distribution width (RBC) [Ratio] 12.8 % 11.6-14.6 [facility] Erythrocyte distribution wid th standard deviationOrdered By: Ashkan Remy on 08-26-2023 Erythrocyte distribution width (RBC) [Entitic vol] 43.5 fL 35.1-43.9 [facility] Hematocrit Auto (Bld) [Volum e fraction]Ordered By: Ashkan Remy on 08-26-2023 Hematocrit (Bld) [Volume fraction] 43.8 % 37-47 [facility] Immature granulocytes/100 WB C Auto (Bld)Ordered By: Ashkan Remy on 08-26-2023 Immature granulocytes/100 WBC (Bld) 0.300 % 0.0-0.9 [facility] Comment on above: IG% - Immature Granu locytes (promyelocytes, myelocytes and metamyelocytes) > 1% indicates that a LEFT SHIFT is Present. Laboratory - Chemistry and C hemistry - challengeOrdered By: Ashkan Remy on 08-26-2023 Albumin/Globulin [Mass ratio] 0.9 {ratio} 0.9-2.4 [facility] ALP [Catalytic activity/Vol] 52 U/L 45-117 [facility] ALT [Catalytic activity/Vol] 39 U/L 13-56 [facility] CO2 [Moles/Vol] 24.0 mmol/L 21.0-32.0 [facility] Globulin (S) [Mass/Vol] 4.1 g/dL 2.2-4.2 [facility] Magnesium [Mass/Vol] 2.2 mg/dL 1.6-2.6 [facility] Urea nitrogen/Creatinine [Mass ratio] 22.8 mg/mg 10-20 [facility] Laboratory - Hematology and Cell countsOrdered By: Ashkan Remy on 08-26-2023 MCH (RBC) [Entitic mass] 29.5 pg 27.0-32.0 [facility] MCHC (RBC) [Mass/Vol] 32.0 g/dL 32-36 [facility] Nucleated RBC/100 WBC (Bld) [Ratio] 0 % 0-5 [facility] Platelet mean volume (Bld) [Entitic vol] 9.8 fL 6.2-12.0 [facility] Platelets (Bld) [#/Vol] 185 10*3/uL 150-450 [facility] No Panel InformationOrdered By: Ashkan Remy on 08-26-2023 Estimated GFR (MDRD) Amer 70 mL/min >60 [facility] Comment on above: GFR Calc Estimated GFR (MDRD) Non-Af Amer 58 mL/min >60 [facility] Comment on above: Non- GFR Calc RBC Auto (Bld) [#/Vol]Ordere d By: Ashkan Remy on 08-26-2023 RBC (Bld) [#/Vol] 4.75 10*6/uL 4.2-5.4 [facility] Serum or plasma calcium leah urement (mass/volume)Ordered By: Ashkan Remy on 08-26-2023 Calcium [Mass/Vol] 8.8 mg/dL 8.5-10.1 [facility] Serum or plasma creatinine m easurement (mass/volume)Ordered By: Ashkan Remy on 08-26-2023 Creatinine [Mass/Vol] 1.01 mg/dL 0.55-1.02 [facility] Comment on above: The validity of the calculated GFR & GFRAA in patients over 70 years has not been determined. Clinical correlation is essential. Serum or plasma thyroid stim ulating hormone (TSH) measurement (units/volume)Ordered By: Ashkan Remy on 08-26-2023 TSH Qn 0.40 uIU/mL 0.358-3.74 [facility] Serum or plasma urea nitroge n measurement (mass/volume)Ordered By: Ashkan Remy on 08-26-2023 Urea nitrogen [Mass/Vol] 23 mg/dL 7-18 [facility] Thin prep Papanicolaou smear with manual screeningOrdered By: Ashkan Remy on 08-26-2023 Thin prep Papanicolaou smear with manual screening 3.7 g/dL 3.2-5.0 [facility] Thin prep Papanicolaou smear with manual screening 23 U/L 15-37 [facility] Thin prep Papanicolaou smear with manual screening 7 5-15 [facility] Thin prep Papanicolaou smear with manual screening 1.26 ng/dL 0.76-1.46 [facility] ECHOCARDIOGRAM LIMITED/FOLLO WUPon 08-13-2023 ECHOCARDIOGRAM LIMITED/FOLLOWUP - Limited study to assess ventricular function. - Normal left ventricular size and function. Ejection fraction 55-60%. - Normal right ventricular size and function. - Normal atrial size. - Mitral annulus is mildly calcified. - RVSP could not be estimated. Table formatting from the original result was not included. Images from the original result were not included. Patient Information Patient Name Beulah Mcpherson Legal Sex Female Indication for Exam Priority: Routine Dx: Paroxysmal atrial fibrillation [I48.0 (ICD-10-CM)]; Hypertension, essential [I10 (ICD-10-CM)] Comments: Eval LVEF with better rhythm control Interpretation Summary - Limited study to assess ventricular function. - Normal left ventricular size and function. Ejection fraction 55-60%. - Normal right ventricular size and function. - Normal atrial size. - Mitral annulus is mildly calcified. - RVSP could not be estimated. Findings Left Ventricle Chamber size is normal. Normal wall thickness. Normal global systolic function. Regional wall motion is normal. Ejection fraction is normal (55 - 60%). Unable to assess diastolic function. Right Ventricle Chamber size is normal. Systolic function is normal. Left Atrium Chamber size is normal. Right Atrium Chamber size is normal. Septum Atrial septum not assessed. Mitral Valve Normal appearing leaflets. Leaflet mobility is normal. Mild annular calcification. No regurgitation. No valve stenosis. Aortic Valve Aortic valve not assessed. Trileaflet valve. Tricuspid Valve Normal leaflets. Leaflet mobility is normal. Trace regurgitation. No stenosis. Pulmonic Valve Pulmonic valve not assessed. Aorta Aorta not assessed. Pericardium Appears normal. No pericardial effusion. IVC/SVC The inferior vena cava structure has a diameter <21 mm and decreases >50% during inspiration. Reading Providers Reading Role Read Date Aldo Arreola MD Echo [place], Test Heating Operators Engineer 08/13/2023 Left Heart Measurements LV - Systole LVIDD 4.8 cm IVS 0.93 cm LVIDS 3.28 cm PW 0.95 cm LV RWT 0.4 LV Mass Index 71.5 g/m2 LV EDV BP 64 mL LV ESV BP 28 mL BP EF 56 % LV stroke volume BP (ml) 36 mL LV stroke volume index BP 16.44 mL/m2 LV - Diastole MV pk E tayla 0.63 m/s MV pk A tayla 0.93 m/s E/A ratio 0.68 e' septal pk tayla 0.07 m/s e' lateral pk tayla 0.09 m/s Avg e' pk tayla 0.08 m/s E/e' septal ratio 9.32 E/e' lateral ratio 7.16 Avg E/e' ratio 8.24 Left Atrium LA ESV SP 4CH (MOD) 55 mL LA ESV SP 2CH (MOD) 67 mL LA ESV BP (MOD) index 29 mL/m2 Right Heart Measurements RV - Doppler TAPSE 2.28 cm RV S' 11.98 cm/s Great Vessels Inferior Vena Cava IVC ostium 1.12 cm Doppler Measurements - Mitral Valve Stenosis MV pk E tayla 0.63 m/s MV pk A tayla 0.93 m/s E/A ratio 0.68 MV stenosis pressure 1/2 time 63.4 ms MV valve area p 1/2 method 3.47 cm2 PISA-MS MV pk E tayla 0.63 m/s Doppler Measurements - Tricuspid Valve Stenosis IVC ostium 1.12 cm Vitals Height Weight BSA (Calculated - sq m) BP Pulse 1.702 m (5' 7.01) 109.3 kg (240 lb 15.4 oz) 2.19 m2 160/70 Performing Staff Chelsey Luna RDCS Study Details A limited echocardiography study (including color flow Doppler and limited spectral Doppler) was performed. Imaging system used: EntraTympanic. Indications Indications for study: atrial fib / atrial flutter. Exam Details Performed Procedure Technologist Supporting Staff Performing Physician [place] ECHOCARDIOGRAM LIMITED/FOLLOWUP W/O 3D Chelsey Luna RDCS Appointment Date/Status Modality Department 08/13/2023 Arrived [facility] , [facility] ECHOCARDIOGRAPHY [facility] Begin Exam End Exam 08/13/2023 2:38 PM 08/13/2023 3:07 PM Signed at 1520 EDT External Results Report There is an external results report available. Patient Release Status: [facility]/FOLLOWUP: Patient Communication Released Not seen ABN Associated with this Order There is no ABN associated with this order. Normal [facility] US Heart limitedOrdered By: Adlo Arreola on 08-13-2023 Avg e' pk tayla 0.08 m/s [facility] Work Phone: Avg E/e' ratio 8.24 [facility] Work [facility]: Body surface area Derived from formula 2.19 m2 [facility] Work Phone: BP EF 56 % [facility] Work Phone: E wave decelartion time 218.62 msec O [facility] Work Phone: e' lateral pk tayla 0.0880 m/s [facility] Work Phone: e' lateral pk tayla 0.09 m/s [facility] Work Phone: e' septal pk tayla 0.0676 m/s [facility]: e' septal pk tayla 0.07 m/s [facility] Work [facility]: E/A ratio 0.68 [facility] Work Phone: E/e' lateral [facility] 7.16 [facility] Work Phone: E/e' septal ratio 9.32 [facility] Work Phone: EF SP 2CH 57 [facility] Work Phone: EF SP 4CH 56 [facility] Work Phone: FS 32 % 28 - 44 % [facility] Work Phone: IVC ostium 1.12 cm [facility] Work Phone: IVS 0.93 cm [facility] Work Phone: LA AREA 2CH 20.81 cm2 [facility] Work Phone: LA area 4CH 19.62 cm2 [facility] Work Phone: LA ESV BP (MOD) 63 [facility] Work Phone: LA ESV BP (MOD) index 29 mL/m2 [facility] Work Phone: LA ESV SP 2CH (MOD) 67 mL [facility] Work Phone: LA ESV SP 4CH (MOD) 55 mL [facility] Work Phone: LV EDV BP 64 mL [facility] Work Phone: LV EDV SP 2CH 63 mL [facility] Work Phone: LV EDV SP 4CH 63 mL [facility] Work Phone: LV ESV BP 28 mL [facility] Work Phone: LV ESV SP 2CH 27 mL [facility] Work Phone: LV ESV SP 4CH 28 mL [facility] Work Phone: LV mass 156.59 g [facility] Work Phone: LV Mass Index 71.5 g/m2 [facility] Work Phone: LV RWT 0.40 [facility] Work Phone: LV stroke volume BP (ml) 36 mL [facility] Work Phone: LV stroke volume index BP 16.44 mL/m2 [facility] Work Phone: LVIDD 4.80 cm [facility] Work Phone: LVIDS 3.28 cm [facility] Work Phone: MV pk A tayla 0.93 m/s [facility] Work Phone: MV pk E tayla 0.63 m/s [facility] Work Phone: MV stenosis pressure 1/2 time 63.40 ms [facility] Work Phone: MV valve area p 1/2 method 3.47 cm2 [facility] Work Phone: [facility] ECHO LV BIPLANE SYSTOLIC VOLUME INDEX 12.79 mL/m2 [facility] Work Phone: [facility] ECHO LV BP DIASTOLIC VOLUME INDEX 29.22 mL/m2 [facility] Work Phone: PW 0.95 cm [facility] Work Phone: RV S' 11.98 cm/s [facility] Work Phone: TAPSE 2.28 cm [facility] Work Phone: U [facility] Work Phone: Heart limitedon 4 - Limited study to assess ventricular function. - Normal left ventricular size and function. Ejection fraction 55-60%. - Normal right ventricular size and function. - Normal atrial size. - Mitral annulus is mildly calcified. - RVSP could not be estimated. Left Ventricle Chamber size is normal. Normal wall thickness. Normal global systolic function. Regional wall motion is normal. Ejection fraction is normal (55 - 60%). Unable to assess diastolic function. Right Ventricle Chamber size is normal. Systolic function is normal. Left Atrium Chamber size is normal. Right Atrium Chamber size is normal. IVC/SVC The inferior vena cava structure has a diameter <21 mm and decreases >50% during inspiration. Mitral Valve Normal appearing leaflets. Leaflet mobility is normal. Mild annular calcification. No regurgitation. No valve stenosis. Tricuspid Valve Normal leaflets. Leaflet mobility is normal. Trace regurgitation. No stenosis. Aortic Valve Aortic valve not assessed. Trileaflet valve. Pulmonic Valve Pulmonic valve not assessed. Pericardium Appears normal. No pericardial effusion. Septum Atrial septum not assessed. Aorta Aorta not assessed. Study Details A limited echocardiography study (including color flow Doppler and limited spectral Doppler) was performed. Imaging system used: Siemens. Indications Indications for study: atrial fib / atrial flutter. [facility] Radiology Study observation (narrative) [facility] Basophil percentageOrdered B y: Africa Marcus on 07-06-2023 Creatinine [Mass/Vol] 1.2 mg/dL 0.55-1.02 [facility] Laboratory - Chemistry and C hemistry - challengeOrdered By: Africa Marcus on 07-06-2023 GFR/1.73 sq M.predicted among non-blacks MDRD (S/P/Bld) [Vol rate/Area] 47.0000 mL/min/{1.73_m2} >60 [facility] Basophil percentageOrdered B y: Yesi Clinton on 05-26-2023 Basophil percentage 0-5 SEEN /hpf 0-5 [facility] Bilirubin Test strip Ql (U)O rdered By: Yesi Clinton on 05-26-2023 Bilirubin Ql (U) Negative Negative [facility] Culture, urineOrdered By: Ef ander Clinton on 05-26-2023 Bacteria identified Cx Nom (U) Mixed Gram Pos & Gram Neg Org [facility] Bacteria identified Cx Nom (U) Mixed Gram Pos & Gram Neg Org [facility] Ketones Test strip Ql (U)Ord ered By: Yesi Clinton on 05-26-2023 Ketones Ql (U) Negative Negative [facility] Mucus LM Ql (Urine sed)Order ed By: Yonybe Oz on 05-26-2023 Mucus Ql (Urine sed) 0 SEEN /hpf [facility] Nitrite Test strip Ql (U)Ord ered By: Keeleyongbe Oz on 05-26-2023 Nitrite Ql (U) Negative Negative [facility] Protein Test strip Ql (U)Ord ered By: Efmartyongbe Jonhe on 05-26-2023 Protein Ql (U) Negative Negative [facility] Squamous epithelial cells de tection in urine sediment by light microscopyOrdered By: Yesi Clinton on 05-26-2023 Epithelial cells.squamous LM Ql (Urine sed) 5-10 SEEN /hpf 5-10 [facility] Urine blood detectionOrdered By: Yesi Clinton on 05-26-2023 RBC Ql (U) Negative Negative [facility] RBC Ql (U) 0 SEEN /hpf 0-5 [facility] Urine clarityOrdered By: Varinder Clinton on 05-26-2023 Clarity (U) Sl. Cloudy Clear [facility] Urine color determinationOrd ered By: Yesi Clinton on 05-26-2023 Color (U) Yellow Yellow [facility] Urine glucose detectionOrder ed By: Yesi Clinton on 05-26-2023 Glucose Ql (U) Normal mg/dl Normal [facility] [facility] leukocyte esterase det ection by dipstickOrdered By: Yesi Clinton on 05-26-2023 Leukocyte esterase Test strip Ql (U) Negative Negative [facility] Urine pHOrdered By: Na Clinton on 05-26-2023 pH (U) 6.5 [pH] 5.0 - 8.0 [facility] Urine sediment bacteria coun t by microscopy (number/high power field)Ordered By: Yesi Clinton on 05-26-2023 Bacteria LM.HPF (Urine sed) [#/Area] RARE /hpf None Seen [facility] Urine specific gravity measu rementOrdered By: Yesi Clinton on 05-26-2023 Specific gravity (U) [Rel density] 1.010 1.002-1.030 [facility] Urobilinogen Auto test strip Ql (U)Ordered By: Yesi Clinton on 05-26-2023 Urobilinogen Ql (U) Normal mg/dl Normal [facility] Absolute lymphocyte countOrd ered By: Yesi Clinton on 05-17-2023 Lymphocytes Auto (Unsp spec) [#/Vol] 2.67 10*3/uL 0.83-4.51 [facility] Basophil percentageOrdered B y: Yesi Clinton on 05-17-2023 Basophil percentage 0-5 SEEN /hpf 0-5 [facility] Basophils/100 WBC (Bld) 0.4 % 0-1 [facility] Chloride [Moles/Vol] 108 mmol/L 98-107 [facility] Eosinophils/100 WBC (Bld) 2.7 % 0-5 [facility] Glucose [Mass/Vol] 97 mg/dL 74-106 [facility] Neutrophils (Bld) [#/Vol] 4.1 10*3/uL 2.0-7.7 [facility] Neutrophils/100 WBC (Bld) 52.9 % 47-70 [facility] Potassium [Moles/Vol] 4.2 mmol/L 3.5-5.1 [facility] Sodium [Moles/Vol] 140 mmol/L 136-145 [facility] WBC (Bld) [#/Vol] 7.7 10*3/uL 4.4-11.0 [facility] Bilirubin Test strip Ql (U)O rdered By: Yesi Clinton on 05-17-2023 Bilirubin Ql (U) Negative Negative [facility] Blood erythrocytes count (nu mber/volume)Ordered By: Yesi Clinton on 05-17-2023 RBC (Bld) [#/Vol] 4.74 10*6/uL 4.2-5.4 [facility] Blood hemoglobin measurement (mass/volume)Ordered By: Yesi Clinton on 05-17-2023 Hemoglobin (Bld) [Mass/Vol] 14.3 g/dL 12.0-15.0 [facility] Blood lymphocytes/100 leukoc ytesOrdered By: Yesi Clinton on 05-17-2023 Lymphocytes/100 WBC (Bld) 34.9 % 19-41 [facility] Blood monocytes/100 leukocyt esOrdered By: Yesi Clinton on 05-17-2023 Monocytes/100 WBC (Bld) 8.8 % 0-10 [facility] Blood platelet mean volumeOr dered By: Yesi Clinton on 05-17-2023 Platelet mean volume (Bld) [Entitic vol] 9.3 fL 6.2-12.0 [facility] Culture, urineOrdered By: Shirley Clinton on 05-17-2023 Bacteria identified Cx Nom (U) Presumptive E. coli [facility] Bacteria identified Cx Nom (U) Presumptive E. coli [facility] Determination of erythrocyte mean corpuscular volume (MCV)Ordered By: Yesi Clinton on 05-17-2023 MCV (RBC) [Entitic vol] 94.3 fL 81-99 [facility] Hematocrit Auto (Bld) [Volum e fraction]Ordered By: Yesi Clinton on 05-17-2023 Hematocrit (Bld) [Volume fraction] 44.7 % 37-47 [facility] Ketones Test strip Ql (U)Ord ered By: Yesi Clinton on 05-17-2023 Ketones Ql (U) Negative Negative [facility] Laboratory - Chemistry and C hemistry - challengeOrdered By: Yesi lCinton on 05-17-2023 CO2 [Moles/Vol] 26.0 mmol/L 21.0-32.0 [facility] Urea nitrogen/Creatinine [Mass ratio] 23.0 mg/mg 10-20 [facility] Laboratory - Hematology and Cell countsOrdered By: Yesi Clinton on 05-17-2023 Erythrocyte distribution width (RBC) [Entitic vol] 44.0 fL 35.1-43.9 [facility] Erythrocyte distribution width (RBC) [Ratio] 12.9 % 11.6-14.6 [facility] Immature granulocytes/100 WBC (Bld) 0.300 % 0.0-0.9 [facility] Comment on above: IG% - Immature Granu locytes (promyelocytes, myelocytes and metamyelocytes) > 1% indicates that a LEFT SHIFT is Present. MCH (RBC) [Entitic mass] 30.2 pg 27.0-32.0 [facility] Nucleated RBC/100 WBC (Bld) [Ratio] 0 % 0-5 [facility] MCHC Auto (RBC) [Mass/Vol]Or dered By: Yesi Clinton on 05-17-2023 MCHC (RBC) [Mass/Vol] 32.0 g/dL 32-36 [facility] Mucus LM Ql (Urine sed)Order ed By: Yesi Clinton on 05-17-2023 Mucus Ql (Urine sed) 0 SEEN /hpf [facility] Nitrite Test strip Ql (U)Ord ered By: Yesi Clinton on 05-17-2023 Nitrite Ql (U) Positive Negative [facility] No Panel InformationOrdered By: Yesi Clinton on 05-17-2023 Estimated GFR (MDRD) Amer 83 mL/min >60 [facility] Comment on above: GFR Calc Estimated GFR (MDRD) Non-Af Amer 68 mL/min >60 [facility] Comment on above: Non- GFR Calc Platelets bldOrdered By: Varinder Clinton on 05-17-2023 Platelets (Bld) [#/Vol] 273 10*3/uL 150-450 [facility] Protein Test strip Ql (U)Ord ered By: Yesi Clinton on 05-17-2023 Protein Ql (U) 15 mg/dl Negative [facility] Serum or plasma calcium leah urement (mass/volume)Ordered By: Yesi Clinton on 05-17-2023 Calcium [Mass/Vol] 8.7 mg/dL 8.5-10.1 [facility] Serum or plasma creatinine m easurement (mass/volume)Ordered By: Yesi Clinton on 05-17-2023 Creatinine [Mass/Vol] 0.87 mg/dL 0.55-1.02 [facility] Comment on above: The validity of the calculated GFR & GFRAA in patients over 70 years has not been determined. Clinical correlation is essential. Serum or plasma urea nitroge n measurement (mass/volume)Ordered By: Yesi Clinton on 05-17-2023 Urea nitrogen [Mass/Vol] 20 mg/dL 7-18 [facility] Squamous epithelial cells de tection in urine sediment by light microscopyOrdered By: Yesi Clinton on 05-17-2023 Epithelial cells.squamous LM Ql (Urine sed) 0-5 SEEN /hpf 5-10 [facility] Thin prep Papanicolaou smear with manual screeningOrdered By: Yesi Clinton on 05-17-2023 Thin prep Papanicolaou smear with manual screening 6 5-15 [facility] Urine blood detectionOrdered By: Yesi Clinton on 05-17-2023 RBC Ql (U) 25 /ul Negative [facility] RBC Ql (U) 0-5 SEEN /hpf 0-5 [facility] Urine clarityOrdered By: Varinder Clinton on 05-17-2023 Clarity (U) Sl. Cloudy Clear [facility] Urine color determinationOrd ered By: Yesi Cazaresmontyrj on 05-17-2023 Color (U) Yellow Yellow [facility] Urine glucose detectionOrder ed By: Yesi Cazaresmontyrj on 05-17-2023 Glucose Ql (U) Normal mg/dl Normal [facility] Urine leukocyte esterase det ection by dipstickOrdered By: Yesi Clinton on 05-17-2023 Leukocyte esterase Test strip Ql (U) 25 /ul Negative [facility] Urine pHOrdered By: Na Cazaresmontyrj on 05-17-2023 pH (U) 5.0 [pH] 5.0 - 8.0 [facility] Urine sediment bacteria coun t by microscopy (number/high power field)Ordered By: Yesi Cazaresmontyrj on 05-17-2023 Bacteria LM.HPF (Urine sed) [#/Area] 2 /[HPF] None Seen [facility] Urine specific gravity measu rementOrdered By: Yesi Cazaresmontyrj on 05-17-2023 Specific gravity (U) [Rel density] 1.015 1.002-1.030 [facility] Urobilinogen Auto test strip Ql (U)Ordered By: Yesi Cazaresmontyrj on 05-17-2023 Urobilinogen Ql (U) Normal mg/dl Normal [facility] EP PROCEDURE - EPS/ABLATION/ DEVICEon 03-31-2023 EP PROCEDURE - EPS/ABLATION/DEVICE Beulah Mcpherson is a 67 y.o. with history of HLD, anemia, obesity and atrial fibrillation who presents for catheter ablation. The patient arrived in AFIB. CT scan showed no LA/LUÍS thrombus Right femoral vein access x3 with ultrasound guidance. Successful transseptal puncture x 2 utilizing intracardiac ultrasound guidance followed by 3D map of left atrium and pulmonary veins. Successful wide antral circumferential ablation (WACA) DCCV x 1 with 200 J resulting SR After that with performed remap pf Pvs and did some more ablation and we achieved pulmonary vein isolation (PVI) of all pulmonary veins performed without complications, with confirmation of PV isolation with mapping catheter. CTI ablation was performed to manage typical atrial flutter. Bidirectional block was achieved All applications on the posterior wall were @ 25 Du and esophageal temperature was monitored with a temperature probe. Mild pericardial effusion in the LV seen at the beginning of the case with ICE and was stable and the end of the procedure. EP study: CSNRT 720 ms AH 90 ms HV 75 ms No evidence of dual AV node physiology VAD No inducible SVT PLAN Protamine was given at end of the case. Low-dose aspirin for 30 days Restart anticoagulation 4 hours after hemostasis Protonix for 30 days Event monitor per protocol NPEP follow-up in 3 months Table formatting from the original result was not included. Images from the original result were not included. Beulah Mcpherson EP Procedure - EPS/Ablation/Device Ordering Physician: MANSI COMER Order #: [id number] Study Date: 03/30/2023 Patient Information Name MRN Description Beulah Mcpherson [id number] 67 y.o. female Physicians Panel Physicians Referring Physician Case Authorizing Physician Mansi Comer MD (Primary) MD Mansi Lopez MD Jose R Sleiman, MD (Fellow) Procedures AFIB Ablation Atrial Flutter Ablation Pre Procedure Diagnosis Persistent atrial fibrillation [I48.19]Typical atrial flutter [I48.3] Post Procedure Diagnosis Persistent atrial fibrillation [I48.19]Typical atrial flutter [I48.3] Indications Persistent atrial fibrillation [I48.19 (ICD-10-CM)] Typical atrial flutter [I48.3 (ICD-10-CM)] Conclusion Beulah Mcpherson is a 67 y.o. with history of HLD, anemia, obesity and atrial fibrillation who presents for catheter ablation. The patient arrived in AFIB. CT scan showed no LA/LUÍS thrombus Right femoral vein access x3 with ultrasound guidance. Successful transseptal puncture x 2 utilizing intracardiac ultrasound guidance followed by 3D map of left atrium and pulmonary veins. Successful wide antral circumferential ablation (WACA) DCCV x 1 with 200 J resulting SR After that with performed remap pf Pvs and did some more ablation and we achieved pulmonary vein isolation (PVI) of all pulmonary veins performed without complications, with confirmation of PV isolation with mapping catheter. CTI ablation was performed to manage typical atrial flutter. Bidirectional block was achieved All applications on the posterior wall were @ 25 Du and esophageal temperature was monitored with a temperature probe. Mild pericardial effusion in the LV seen at the beginning of the case with ICE and was stable and the end of the procedure. EP study: CSNRT 720 ms AH 90 ms HV 75 ms No evidence of dual AV node physiology VAD No inducible SVT PLAN Protamine was given at end of the case. Low-dose aspirin for 30 days Restart anticoagulation 4 hours after hemostasis Protonix for 30 days Event monitor per protocol NPEP follow-up in 3 months Consent The procedure was explained including the potential risks of infection, heart perforation, re-operation, and other risks pertinent to procedure. Informed consent and permission to proceed was given. Site Preparation On the day of the procedure, the patient was brought to the operating room and the groin prepped with chloraprep. Site prepped by Raman Rodriguez RN. The patient was draped in the usual sterile manner. Site prepped by Raman Rodriguez RN. Interval Collection conditions: post RF ablation. Type of rhythm: sinus rhythm. Ventricular cycle length: 870 ms. P-R interval: 170 ms. QRS duration: 94 ms. QT interval: 400 ms. Corrected QT interval: 428.85 ms. A-H: 90 ms. H-V: 75 ms. Atrial Pacing Atrial site studied: left atrium via coronary sinus. Collection conditions: post RF ablation. Longest SNRT: 1590 ms. Sinus cycle length: 870 ms. CSNRT: 720 ms. AV Wenckebach interval: [address] cycle length: 600 ms. Fast pathway AVERP: 270 ms. Ventricular Pacing Site paced: right ventricle. Collection conditions: post RF ablation. Ventriculoatrial dissociation. Ablation Ablation Site: left atrium, pulmonary veins. Arrhythmia Type: atrial fibrillation. System used: Carto (3D). Catheter successful. Energy type: radio frequency. Irrigati (more content not included)... Normal [facility] ACT* LOW RANGE, POCon 2022 ACT LOW RANGE, POC 321.0 High [facility] Interpretation and review of laboratory results Abnormal [facility] Test performed at address of the patient encounter. [facility] ACT LOW RANGE, POC 382.0 High [facility] Interpretation and review of laboratory results Abnormal [facility] Test performed at address of the patient encounter. [facility] Comment on above: Out of Range High. The test result is outside clinical range and should not be used for patient-management decisions. Test performed at address of the patient encounter. [facility] ACT LOW RANGE, POC 360.0 [facility] Interpretation and review of laboratory results Abnormal [facility] Test performed at address of the patient encounter. [facility] ACT LOW RANGE, POC 360.0 High [facility] Interpretation and review of laboratory results Abnormal [facility] Test performed at address of the patient encounter. [facility] R[facility], [facility] Comment on above: Out of Range High. The test result is outside clinical range and should not be used for patient-management decisions. Test performed at address of the patient encounter. [facility] ACT LOW RANGE, POC [facility] Comment on above: Out of Range High. The test result is outside clinical range and should not be used for patient-management decisions. Test performed at address of the patient encounter. [facility] R[facility], [facility] Comment on above: Out of Range High. The test result is outside clinical range and should not be used for patient-management decisions. Test performed at address of the patient encounter. [facility] CBC AND ELECTRONIC DIFFon Basophils (Bld) [#/Vol] 0.05 10*3/uL Normal 0.00-0.15 [facility] Comment on above: Performed By: #### L [id number] #### [facility] (DEFAULT) [address] [address] Basophils/100 WBC (Bld) 0.6 % Normal [facility] Comment on above: Performed By: #### L [id number] #### [facility] (DEFAULT) [address] [place] [address] DIFF STATUS Electronic Differential Normal [facility] Comment on above: Performed By: #### L [id number] #### [facility] (DEFAULT) [address] [address] Eosinophils (Bld) [#/Vol] 0.14 10*3/uL Normal 0.00-0.42 [facility] Comment on above: Performed By: #### L [id number] #### [facility] (DEFAULT) [address] [place] [address] Eosinophils/100 WBC (Bld) 1.7 % Normal [facility] Comment on above: Performed By: #### L [id number] #### [facility] (DEFAULT) [address] [address] Hematocrit (Bld) [Volume fraction] 45.2 % High 34.9-44.3 [facility] Comment on above: Performed By: #### L [id number] #### [facility] (DEFAULT) [address] [address] Hemoglobin (Bld) [Mass/Vol] 14.9 g/dL Normal 11.4-15.2 [facility] Comment on above: Performed By: #### L [id number] #### [facility] (DEFAULT) [address] [address] Immature Grans % 0.2 % Normal [facility] Comment on above: Performed By: #### L [id number] #### [facility] (DEFAULT) [address] [address] Immature Grans Absolute < Normal <=0.08 [facility] Comment on above: Performed By: #### L [id number] #### [facility] (DEFAULT) [address] [address] Lymphocytes (Bld) [#/Vol] 2.22 10*3/uL Normal 1.16-3.51 [facility] Comment on above: Performed By: #### L [id number] #### [facility] (DEFAULT) [address] [place] [address] Lymphocytes/100 WBC (Bld) 26.8 % Normal [facility] Comment on above: Performed By: #### L [id number] #### [facility] (DEFAULT) [address] [place] [address] MCV (RBC) [Entitic vol] 91.5 fL Normal 79.6-97.7 [facility] Comment on above: Performed By: #### L [id number] #### [facility] (DEFAULT) [address] [place] [address] Mean Cell Hgb 30.2 pg Normal 25.9-33.9 [facility] Comment on above: Performed By: #### L [id number] #### [facility] (DEFAULT) [address] [place] [address] Mean Cell Hgb Conc 33.0 g/dL Normal 31.4-35.9 [facility] Comment on above: Performed By: #### L [id number] #### [facility] (DEFAULT) [address] [place] [address] Monocytes (Bld) [#/Vol] 0.65 10*3/uL Normal 0.22-0.87 [facility] Comment on above: Performed By: #### L [id number] #### [facility] (DEFAULT) [address] [place] [address] Monocytes/100 WBC (Bld) 7.9 % Normal [facility] Comment on above: Performed By: #### L [id number] #### [facility] (DEFAULT) [address] [place] [address] Nucleated RBC 0.0 /100 WBC Normal <=0.2 [facility] Comment on above: Performed By: #### L [id number] #### [facility] (DEFAULT) [address] [place] [address] Platelet mean volume (Bld) [Entitic vol] 9.2 fL Normal 8.5-12.2 [facility] Comment on above: Performed By: #### L [id number] #### [facility] (DEFAULT) [address] [address] Platelets (Bld) [#/Vol] 236 10*3/uL Normal 150-393 [facility] Comment on above: Performed By: #### L [id number] #### [facility] (DEFAULT) [address] [address] RBC (Bld) [#/Vol] 4.94 10*6/uL Normal 3.91-5.04 [facility] Comment on above: Performed By: #### L [id number] #### [facility] (DEFAULT) [address] [address] RBC Distribution 13.3 % Normal 10.8-14.9 [facility] Comment on above: Performed By: #### L [id number] #### [facility] (DEFAULT) [address] [address] Segs + Bands Auto 62.8 % Normal [facility] Comment on above: Performed By: #### L [id number] #### [facility] (DEFAULT) [address] [address] Segs + Bands,Absolute Auto 5.19 K/uL Normal 1.64-7.28 [facility] Comment on above: Performed By: #### L [id number] #### [facility] (DEFAULT) [address] [address] WBC (Bld) [#/Vol] 8.27 10*3/uL Normal 3.99-11.19 [facility] Comment on above: Performed By: #### L [id number] #### [facility] (DEFAULT) [address] [address] Basophils (Bld) [#/Vol] 0.05 10*3/uL 0.00 - 0.15 K/uL [facility] Basophils/100 WBC (Bld) 0.6 % O [facility] Differential cell count method Nom (Bld) Electronic Differential [facility] Eosinophils (Bld) [#/Vol] 0.14 10*3/uL 0.00 - 0.42 K/uL [facility] Eosinophils/100 WBC (Bld) 1.7 % [facility] Erythrocyte distribution width (RBC) [Ratio] 13.3 % 10.8 - 14.9 % [facility] Hematocrit (Bld) [Volume fraction] 45.2 % High 34.9 - 44.3 % [facility] Hemoglobin (Bld) [Mass/Vol] 14.9 g/dL 11.4 - 15.2 g/dL [facility] Immature granulocytes (Bld) [#/Vol] K/uL NINF - 0.08 K/uL [facility] Immature granulocytes/100 WBC (Bld) 0.2 % [facility] Interpretation and review of laboratory results Abnormal [facility] Lymphocytes (Bld) [#/Vol] 2.22 10*3/uL 1.16 - 3.51 K/uL [facility] Lymphocytes/100 WBC (Bld) 26.8 % [facility] MCH (RBC) [Entitic mass] 30.2 pg 25. 9 - 33.9 pg [facility] MCHC (RBC) [Mass/Vol] 33.0 g/dL 31.4 - 35.9 g/dL [facility] MCV (RBC) [Entitic vol] 91.5 fL 79.6 - 97.7 fL [facility] Monocytes (Bld) [#/Vol] 0.65 10*3/uL 0.22 - 0.87 K/uL [facility] Monocytes/100 WBC (Bld) 7.9 % O [facility] Neutrophils (Bld) [#/Vol] 5.19 10*3/uL 1.64 - 7.28 K/uL [facility] Nucleated RBC/100 WBC (Bld) [Ratio] 0.0 % [facility] Platelet mean volume (Bld) [Entitic vol] 9.2 fL 8.5 - 12.2 fL [facility] Platelets (Bld) [#/Vol] 236 10*3/uL 150 - 393 K/uL [facility] RBC (Bld) [#/Vol] 4.94 10*6/uL [facility] Segmented neutrophils/100 WBC (Bld) 62.8 % [facility] WBC (Bld) [#/Vol] 8.27 10*3/uL 3.99 - 11. 19 K/uL [facility] CHEM 7 (LYTES,BUN,CREA,GLUC) on 03-30-2023 Anion gap [Moles/Vol] 14 mmol/L Normal 7-17 [facility] Comment on above: Performed By: #### C HM7 #### [facility] (DEFAULT) [address] [place] [address] Chloride [Moles/Vol] 108 mmol/L Normal 98-108 [facility] Comment on above: Performed By: #### C HM7 #### [facility] (DEFAULT) [address] [place] [address] CO2 [Moles/Vol] 22 mmol/L Normal - [facility] Comment on above: Performed By: #### C HM7 #### [facility] (DEFAULT) [address] [place] [address] Creatinine [Mass/Vol] 1.09 mg/dL Normal 0.50-1.20 [facility] Comment on above: Performed By: #### C HM7 #### [facility] (DEFAULT) [address] [place] [address] GFR/1.73 sq M.predicted among non-blacks MDRD (S/P/Bld) [Vol rate/Area] 55 mL/min/{1.73_m2} Low >=60 [facility] Comment on above: Result Comment: Repo rted eGFR is based on the CKD-EPI 2020 equation using creatinine, age, and sex. Performed By: #### C HM7 #### [facility] (DEFAULT) [address] [place] [address] Glucose [Mass/Vol] 89 mg/dL Normal 70-99 [facility] Comment on above: Performed By: #### C HM7 #### [facility] (DEFAULT) [address] [place] [address] Osmolality [Osmolality] 296 mosm/kg Normal 278-305 [facility] Comment on above: Performed By: #### C HM7 #### [facility] (DEFAULT) [address] [place] [address] Potassium [Moles/Vol] 4.2 mmol/L Normal 3.5-5.0 [facility] Comment on above: Performed By: #### C HM7 #### [facility] (DEFAULT) [address] [place] [address] Sodium [Moles/Vol] 140 mmol/L Normal 135-145 [facility] Comment on above: Performed By: #### C HM7 #### [facility] (DEFAULT) [address] [place] [address] Urea nitrogen [Mass/Vol] 23 mg/dL Normal 7-25 [facility] Comment on above: Performed By: #### C HM7 #### [facility] (DEFAULT) [address] [place] [address] Urea nitrogen/Creatinine [Mass ratio] 21 mg/mg Normal [facility] Comment on above: Performed By: #### C HM7 #### [facility] (DEFAULT) [address] [place] [address] Anion gap [Moles/Vol] 14 mmol/L 7 - 17 mmol/L [facility] Chloride [Moles/Vol] 108 mmol/L 98 - 10 8 mmol/L [facility] CO2 [Moles/Vol] 22 mmol/L 21 - 31 mmol/L [facility] Creatinine [Mass/Vol] 1.09 mg/dL 0.50 - 1.20 mg/dL [facility] [facility] eGFR, CKD-EPI, Female 53 Low - PINF [facility] Comment on above: Reported eGFR is bas ed on the CKD-EPI 2020 equation using creatinine, age, and sex. Glucose [Mass/Vol] 89 mg/dL 70 - 99 mg/dL [facility] Interpretation and review of laboratory results Abnormal [facility] Osmolality Calc [Osmolality] 296 [facility] Potassium [Moles/Vol] 4.2 mmol/L 3.5 - 5.0 mmol/L [facility] Sodium [Moles/Vol] 140 mmol/L 135 - 145 mmol/L [facility] Urea nitrogen [Mass/Vol] 23 mg/dL 7 - 25 mg/d L [facility] Urea nitrogen/Creatinine [Mass ratio] 21 mg/mg [facility] CREAT/GFRon 03-30-2023 Creatinine [Mass/Vol] 0.61 mg/dL 0.50 - 1.20 mg/dL [facility] GFR/1.73 sq M.predicted CKD-EPI (S/P/Bld) [Vol rate/Area] - [facility] Comment on above: Reported eGFR is bas ed on the CKD-EPI 2020 equation using creatinine, age, and sex. Interpretation and review of laboratory results Normal [facility] Test performed at address of the patient encounter. [facility] CT CARDIAC PULMONARY VENOGRA Wed03-30-2023 CT CARDIAC PULMONARY VENOGRAM [facility] CT Report Name: BEULAH MCPHERSON : 1955 Scan Date: 2023-03-30 08:01:04 Electronically signed by Carmelina Pickett 09:04:04 VITALS ====== HEIGHT: 67 in (170.18 cm) WEIGHT: 236.00 lbs (107.05 kgs) BSA: 2.17 m^2 BMI: 37 kg/m^2 BP: 153 / 88 mmHg BASELINE HR: 86 BPM FINAL ====== 1.No RA or LA thrombus. Filling defect on first-pass imaging that completely fills in on delayed imaging indicates LUÍS stasis without thrombus. 2.Moderate coronary calcification within the limitation of the study. 3.Normal pulmonary venous anatomy. ======= 67 year old female with AF referred for CTPV prior to AF ablation. CARDIAC CT (PULMONARY VEIN / LEFT ATRIAL ASSESSMENT) 1.Normal pulmonary venous anatomy with measurements in mm as outlined below. RUPV: 23 x 19 RLPV: 24 x 20 LUPV: 27 x 13 LLPV: 17 x 8 2.No RA or LA thrombus by first pass or delayed images. Filling defect on first-pass imaging that completely fills in on delayed imaging indicates LUÍS stasis without thrombus. Moderate biatrial enlargement. 3.Moderate coronary artery calcification, predominantly in the LAD. However, study is not optimized for coronary calcification detection. 4.Mild calcification seen in visualized parts of the descending aorta. No aortic valve calcification. Moderate mitral annular calcification. 5.The ascending aorta is normal in size measuring 3.2 cm. The main pulmonary artery is normal size measuring 2.9 cm. 6. Incidental non-cardiac findings (limited field of view): Chest Wall: no evidence of major deformity. Mediastinum/Luna: no calcific adenopathy. Pleural Spaces: normal without thickening/effusion or pneumothorax. Lung Parenchyma: No evidence of significant lung disease, or masses. Bone: degenerative joint disease and bony spurs in the thoracic spine. STUDY QUALITY: Study quality is good. SCAN INFO ====== TEST TYPE: Venogram SCANNER [employer] HELPER: [employer] SCANNER MODEL: LoveThatFit CT750 Searchspace DOSE REDUCTION ALGORITHM: Helical with dose modulation SCAN COVERAGE ZONE: Pulmonary Veins/LUÍS EKG GATED: No GENERAL -------- CONTRAST AGENT ------ CONTRAST AGENT USED?: Yes TYPE: Omnipaque 350 DOSE: 70 ml RATE: 4 ml/s ROUTE: IV BOLUS TECHNIQUE: Biphasic SCAN DELAY TIME METHOD: Smart Prep SERUM CREATININE: 0.61 mg/dL GFR: 103.36 ml/min/1.73m^2 CREATININE DATE: CT CONTRAST REACTION: None RADIATION DOSE ------ DLP: 729.63 SETUP ------ DATE OF EVENT: SCAN TYPE: Clinical PATIENT TYPE: Outpatient REASON(S) FOR SCAN: EP procedure planning REFERRING PHYSICIAN: 1) MANSI COMER FELLOW: Mc Herron NURSE: Krista Sahni ATTENDING PHYSICIAN: CARMELINA De La Rosa MD TECHNOLOGIST: Chelsey Morales ====== Patient Account [id number] CPT Codes 43150 ICD10 Codes I48.19, I48.3 Report generated by [employer], a product of [employer] [facility] CT Report Name: BEULAH MCPHERSON : 1955 Scan Date: 2023-03-30 08:01:04 Electronically signed by Carmelina Pickett 09:04:04 VITALS ====== HEIGHT: 67 in (170.18 cm) WEIGHT: 236.00 lbs (107.05 kgs) BSA: 2.17 m^2 BMI: 37 kg/m^2 BP: 153 / 88 mmHg BASELINE HR: 86 BPM FINAL IMPRESSION ====== 1. No RA or LA thrombus. Filling defect on first-pass imaging that completely fills in on delayed imaging indicates LUÍS stasis without thrombus. 2. Moderate coronary calcification within the limitation of the study. 3. Normal pulmonary venous anatomy. ======= 67 year old female with AF referred for CTPV prior to AF ablation. CARDIAC CT (PULMONARY VEIN / LEFT ATRIAL ASSESSMENT) 1. Normal pulmonary venous anatomy with measurements in mm as outlined below. RUPV: 23 x 19 RLPV: 24 x 20 LUPV: 27 x 13 LLPV: 17 x 8 2. No RA or LA thrombus by first pass or delayed images. Filling defect on first-pass imaging that completely fills in on delayed imaging indicates LUÍS stasis without thrombus. Moderate biatrial enlargement. 3. Moderate coronary artery calcification, predominantly in the LAD. However, study is not optimized for coronary calcification detection. 4. Mild calcification seen in visualized parts of the descending aorta. No aortic valve calcification. Moderate mitral annular calcification. 5. The ascending aorta is normal in size measuring 3.2 cm. The main pulmonary artery is normal size measuring 2.9 cm. 6. Incidental non-cardiac findings (limited field of view): Chest Wall: no evidence of major deformity. Mediastinum/Luna: no calcific adenopathy. Pleural Spaces: normal without thickening/effusion or pneumothorax. Lung Parenchyma: No evidence of significant lung disease, or masses. Bone: degenerative joint disease and bony spurs in the thoracic spine. STUDY QUALITY: Study quality is good. SCAN INFO ====== TEST TYPE: Venogram SCANNER [employer]INE [employer]LECT[employer] HELPER: [employer] SCANNER MODEL: LoveThatFit CT750 Searchspace DOSE REDUCTION ALGORITHM: Helical with dose modulation SCAN COVERAGE ZONE: Pulmonary Veins/LUÍS EKG GATED: No GENERAL -------- CONTRAST AGENT ------ CONTRAST AGENT USED?: Yes TYPE: Omnipaque 350 DOSE: 70 ml RATE: 4 ml/s ROUTE: IV BOLUS TECHNIQUE: Biphasic SCAN DELAY TIME METHOD: Smart Prep SERUM CREATININE: 0.61 mg/dL GFR: 103.36 ml/min/1.73m^2 CREATININE DATE: CT CONTRAST REACTION: None RADIATION DOSE ------ DLP: 729.63 SETUP ------ DATE OF EVENT: SCAN TYPE: Clinical PATIENT TYPE: Outpatient REASON(S) FOR SCAN: EP procedure planning REFERRING PHYSICIAN: 1) MANSI COMER FELLOW: Mc Herron NURSE: Krista Sahni ATTENDING PHYSICIAN: CARMELINA De La Rosa MD TECHNOLOGIST: Chelsey Morales ====== Patient Account [id number] CPT Codes 39869 ICD10 Codes I48.19, I48.3 Report generated by [employer], a product of [employer] CARDIOLOGY Carmelina Pickett MD - 03/30/2023 [facility] CT Report Name: BEULAH MCPHERSON : 1955 Scan Date: 2023-03-30 08:01:04 Electronically signed by Carmelina Pickett 09:04:04 VITALS HEIGHT: 67 in (170.18 cm) WEIGHT: 236.00 lbs (107.05 kgs) BSA: 2.17 m^2 BMI: 37 kg/m^2 BP: 153 / 88 mmHg BASELINE HR: 86 BPM FINAL IMPRESSION 1.No RA or LA thrombus. Filling defect on first-pass imaging that completely fills in on delayed imaging indicates LUÍS stasis without thrombus. 2.Moderate coronary calcification within the limitation of the study. 3.Normal pulmonary venous anatomy. 67 year old female with AF referred for CTPV prior to AF ablation. CARDIAC CT (PULMONARY VEIN / LEFT ATRIAL ASSESSMENT) 1.Normal pulmonary venous anatomy with measurements in mm as outlined below. RUPV: 23 x 19 RLPV: 24 x 20 LUPV: 27 x 13 LLPV: 17 x 8 2.No RA or LA thrombus by first pass or delayed images. Filling defect on first-pass imaging that completely fills in on delayed imaging indicates LUÍS stasis without thrombus. Moderate biatrial enlargement. 3.Moderate coronary artery calcification, predominantly in the LAD. However, study is not optimized for coronary calcification detection. 4.Mild calcification seen in visualized parts of the descending aorta. No aortic valve calcification. Moderate mitral annular calcification. 5.The ascending aorta is normal in size measuring 3.2 cm. The main pulmonary artery is normal size measuring 2.9 cm. 6. Incidental non-cardiac findings (limited field of view): Chest Wall: no evidence of major deformity. Mediastinum/Luna: no calcific adenopathy. Pleural Spaces: normal without thickening/effusion or pneumothorax. Lung Parenchyma: No evidence of significant lung disease, or masses. Bone: degenerative joint disease and bony spurs in the thoracic spine. STUDY QUALITY: Study quality is good. SCAN INFO TEST TYPE: Venogram SCANNER [employer]INE [employer]LECT[employer]ICIAN HELPER: [employer] SCANNER MODEL: LoveThatFit CT750 [employer]space DOSE REDUCTION ALGORITHM: Helical with dose modulation SCAN COVERAGE ZONE: Pulmonary Veins/LUÍS EKG GATED: No GENERAL CONTRAST AGENT ------ CONTRAST AGENT USED?: Yes TYPE: Omnipaque 350 DOSE: 70 ml RATE: 4 ml/s ROUTE: IV BOLUS TECHNIQUE: Biphasic SCAN DELAY TIME METHOD: Smart Prep SERUM CREATININE: 0.61 mg/dL GFR: 103.36 ml/min/1.73m^2 CREATININE DATE: CT CONTRAST REACTION: None RADIATION DOSE ------ DLP: 729.63 SETUP ------ DATE OF EVENT: SCAN TYPE: Clinical PATIENT TYPE: Outpatient REASON(S) FOR SCAN: EP procedure planning REFERRING PHYSICIAN: 1) MANSI COMER FELLOW: Mc Herron NURSE: Krista Sahni ATTENDING PHYSICIAN: CARMELINA De La Rosa MD TECHNOLOGIST: Chelsey Morales Patient Account [id number] CPT Codes 34694 ICD10 Codes I48.19, I48.3 Report generated by [employer], a product of [employer] [facility] Radiology Study observation (narrative) [facility] CT CARDIAC PULMONARY VENOGRA MOrdered By: Carmelina Pickett on 03-30-2023 [facility] Work Phone: PT,INR,PTTon 03-30-2023 aPTT Coag (Bld) [Time] 35.5 s High 24.0-34.3 [facility] Comment on above: Performed By: #### P TPTT #### [facility] (DEFAULT) [address] [place] [id number] INR Coag (PPP) [Relative time] 1.2 {INR} High 0.9-1.1 [facility] Comment on above: Performed By: #### P TPTT #### [facility] (DEFAULT) [address] [address] PT Coag (PPP) [Time] 15.3 s High 11.9-14.2 [facility] Comment on above: Performed By: #### P TPTT #### [facility] (DEFAULT) [address] [address] aPTT Coag (PPP) [Time] 35.5 s High [facility] INR Coag (Bld) [Relative time] 1.2 {INR} High 0.9 - 1.1 [facility] Interpretation and review of laboratory results Abnormal [facility] PT Coag (PPP) [Time] 15.3 s High [facility] Absolute lymphocyte countOrd ered By: Doug Barone on 02-25-2023 Lymphocytes Auto (Unsp spec) [#/Vol] 2.29 10*3/uL 0.83-4.51 [facility] Basophil percentageOrdered B y: Doug Barone on 02-25-2023 Basophils/100 WBC (Bld) 0.5 % 0-1 [facility] Chloride [Moles/Vol] 109 mmol/L 98-107 [facility] Eosinophils/100 WBC (Bld) 1.4 % 0-5 [facility] Glucose [Mass/Vol] 102 mg/dL 74-106 [facility] Comment on above: Fasting Glucose resu lt from 100 to 125 mg/dL suggests IMPAIRED HOMEOSTASIS per A.D.A. criteria. Neutrophils (Bld) [#/Vol] 4.5 10*3/uL 2.0-7.7 [facility] Neutrophils/100 WBC (Bld) 59.9 % 47-70 [facility] Potassium [Moles/Vol] 4.1 mmol/L 3.5-5.1 [facility] Sodium [Moles/Vol] 140 mmol/L 136-145 [facility] WBC (Bld) [#/Vol] 7.6 10*3/uL 4.4-11.0 [facility] Blood erythrocytes count (nu mber/volume)Ordered By: Doug Barone on 02-25-2023 RBC (Bld) [#/Vol] 5.00 10*6/uL 4.2-5.4 [facility] Blood hemoglobin measurement (mass/volume)Ordered By: Doug Barone on 02-25-2023 Hemoglobin (Bld) [Mass/Vol] 15.1 g/dL 12.0-15.0 [facility] Blood lymphocytes/100 leukoc ytesOrdered By: Doug Barone on 02-25-2023 Lymphocytes/100 WBC (Bld) 30.2 % 19-41 [facility] Blood monocytes/100 leukocyt esOrdered By: Doug Barone on 02-25-2023 Monocytes/100 WBC (Bld) 7.9 % 0-10 [facility] Blood platelet mean volumeOr dered By: Doug Barone on 02-25-2023 Platelet mean volume (Bld) [Entitic vol] 9.4 fL 6.2-12.0 [facility] Determination of erythrocyte mean corpuscular volume (MCV)Ordered By: Doug Barone on 02-25-2023 MCV (RBC) [Entitic vol] 93.0 fL 81-99 [facility] Hematocrit Auto (Bld) [Volum e fraction]Ordered By: Doug Barone on 02-25-2023 Hematocrit (Bld) [Volume fraction] 46.5 % 37-47 [facility] INR in Blood by Coagulation assayOrdered By: Doug Barone on 02-25-2023 INR Coag (Bld) [Relative time] 1.2 {INR} [facility] Laboratory - Chemistry and C hemistry - challengeOrdered By: Doug Barone on 02-25-2023 CO2 [Moles/Vol] 27.0 mmol/L 21.0-32.0 [facility] Urea nitrogen/Creatinine [Mass ratio] 21.4 mg/mg 10-20 [facility] Laboratory - CoagulationOrde red By: Doug Barone on 02-25-2023 aPTT Coag (Bld) [Time] 35.1 s 24.1-36.2 [facility] PT Coag (PPP) [Time] 15.2 s 11.7-14.9 [facility] Laboratory - Hematology and Cell countsOrdered By: Doug Barone on 02-25-2023 Erythrocyte distribution width (RBC) [Entitic vol] 44.3 fL 35.1-43.9 [facility] Erythrocyte distribution width (RBC) [Ratio] 13.0 % 11.6-14.6 [facility] Immature granulocytes/100 WBC (Bld) 0.100 % 0.0-0.9 [facility] Comment on above: IG% - Immature Granu locytes (promyelocytes, myelocytes and metamyelocytes) > 1% indicates that a LEFT SHIFT is Present. MCH (RBC) [Entitic mass] 30.2 pg 27.0-32.0 [facility] Nucleated RBC/100 WBC (Bld) [Ratio] 0 % 0-5 [facility] MCHC Auto (RBC) [Mass/Vol]Or dered By: Doug Barone on 02-25-2023 MCHC (RBC) [Mass/Vol] 32.5 g/dL 32-36 [facility] No Panel InformationOrdered By: Doug Barone on 02-25-2023 Estimated GFR (MDRD) Amer 62 mL/min >60 [facility] Comment on above: GFR Calc Estimated GFR (MDRD) Non-Af Amer 51 mL/min >60 [facility] Comment on above: Non- GFR Calc Troponin I High Sensitivity 9 pg/mL 3.0-54.0 [facility] Comment on above: Please Note: New Ying t Units and Gender Specific Reference Ranges. For more information see Policy Stat Procedure [place] High Sensitivity Troponin (TNIH) and attachments. Platelets bldOrdered By: Lacy Barone on 02-25-2023 Platelets (Bld) [#/Vol] 220 10*3/uL 150-450 [facility] Serum or plasma calcium leah urement (mass/volume)Ordered By: Doug Barone on 02-25-2023 Calcium [Mass/Vol] 8.9 mg/dL 8.5-10.1 [facility] Serum or plasma creatinine m easurement (mass/volume)Ordered By: Doug Barone on 02-25-2023 Creatinine [Mass/Vol] 1.12 mg/dL 0.55-1.02 [facility] Comment on above: The validity of the calculated GFR & GFRAA in patients over 70 years has not been determined. Clinical correlation is essential. Serum or plasma urea nitroge n measurement (mass/volume)Ordered By: Doug Barone on 02-25-2023 Urea nitrogen [Mass/Vol] 24 mg/dL 7-18 [facility] Thin prep Papanicolaou smear with manual screeningOrdered By: Doug Barone on 02-25-2023 Thin prep Papanicolaou smear with manual screening 4 5-15 [facility] Absolute lymphocyte countOrd ered By: Ansley Ponce on 11-08-2022 Lymphocytes Auto (Unsp spec) [#/Vol] 3.07 10*3/uL 0.83-4.51 [facility] Basophil percentageOrdered B y: Ansley Ponce on 11-08-2022 Basophils/100 WBC (Bld) 0.6 % 0-1 [facility] Chloride [Moles/Vol] 108 mmol/L 98-107 [facility] Eosinophils/100 WBC (Bld) 2.3 % 0-5 [facility] Glucose [Mass/Vol] 103 mg/dL 74-106 [facility] Comment on above: Fasting Glucose resu lt from 100 to 125 mg/dL suggests IMPAIRED HOMEOSTASIS per A.D.A. criteria. Neutrophils (Bld) [#/Vol] 4.6 10*3/uL 2.0-7.7 [facility] Neutrophils/100 WBC (Bld) 53.1 % 47-70 [facility] Potassium [Moles/Vol] 4.3 mmol/L 3.5-5.1 [facility] Sodium [Moles/Vol] 141 mmol/L 136-145 [facility] WBC (Bld) [#/Vol] 8.6 10*3/uL 4.4-11.0 [facility] Blood erythrocytes count (nu mber/volume)Ordered By: Ansley Ponce on 11-08-2022 RBC (Bld) [#/Vol] 4.57 10*6/uL 4.2-5.4 [facility] Blood hemoglobin measurement (mass/volume)Ordered By: Ansley Ponce on 11-08-2022 Hemoglobin (Bld) [Mass/Vol] 14.1 g/dL 12.0-15.0 [facility] Blood lymphocytes/100 leukoc ytesOrdered By: Ansley Ponce on 11-08-2022 Lymphocytes/100 WBC (Bld) 35.8 % 19-41 [facility] Blood monocytes/100 leukocyt esOrdered By: Ansley Ponce on 11-08-2022 Monocytes/100 WBC (Bld) 7.8 % 0-10 [facility] Blood platelet mean volumeOr dered By: Ansley Ponce on 11-08-2022 Platelet mean volume (Bld) [Entitic vol] 9.2 fL 6.2-12.0 [facility] Determination of erythrocyte mean corpuscular volume (MCV)Ordered By: Ansley Ponce on 11-08-2022 MCV (RBC) [Entitic vol] 95.4 fL 81-99 [facility] Hematocrit Auto (Bld) [Volum e fraction]Ordered By: Ansley Ponce on 11-08-2022 Hematocrit (Bld) [Volume fraction] 43.6 % 37-47 [facility] Laboratory - Chemistry and C hemistry - challengeOrdered By: Claymont Rosario on 11-08-2022 CO2 [Moles/Vol] 28.0 mmol/L 21.0-32.0 [facility] Urea nitrogen/Creatinine [Mass ratio] 20.5 mg/mg 10-20 [facility] Laboratory - Hematology and Cell countsOrdered By: Beebe Healthcarekathy on 11-08-2022 Erythrocyte distribution width (RBC) [Entitic vol] 45.1 fL 35.1-43.9 [facility] Erythrocyte distribution width (RBC) [Ratio] 12.9 % 11.6-14.6 [facility] Immature granulocytes/100 WBC (Bld) 0.400 % 0.0-0.9 [facility] Comment on above: IG% - Immature Granu locytes (promyelocytes, myelocytes and metamyelocytes) > 1% indicates that a LEFT SHIFT is Present. MCH (RBC) [Entitic mass] 30.9 pg 27.0-32.0 [facility] Nucleated RBC/100 WBC (Bld) [Ratio] 0 % 0-5 [facility] MCHC Auto (RBC) [Mass/Vol]Or dered By: Ansley Ponce on 11-08-2022 MCHC (RBC) [Mass/Vol] 32.3 g/dL 32-36 [facility] No Panel InformationOrdered By: Ansley Ponce on 11-08-2022 Estimated Creatinine Clearance Calc 52.69 ml/min [facility] Estimated GFR (MDRD) Amer 73 mL/min >60 [facility] Comment on above: GFR Calc Estimated GFR (MDRD) Non-Af Amer 60 mL/min >60 [facility] Comment on above: Non- GFR Calc Troponin I High Sensitivity 7 pg/mL 3.0-54.0 [facility] Comment on above: Please Note: New Ying t Units and Gender Specific Reference Ranges. For more information see Policy Stat Procedure [place] High Sensitivity Troponin (TNIH) and attachments. Platelets bldOrdered By: Karmen Ponce on 11-08-2022 Platelets (Bld) [#/Vol] 260 10*3/uL 150-450 [facility] Serum or plasma calcium leah urement (mass/volume)Ordered By: [facility] ال[facility]قيkathy on 11-08-2022 Calcium [Mass/Vol] 9.1 mg/dL 8.5-10.1 [facility] Serum or plasma creatinine m easurement (mass/volume)Ordered By: [facility] العراقيkathy on 11-08-2022 Creatinine [Mass/Vol] 0.98 mg/dL 0.55-1.02 [facility] Comment on above: The validity of the calculated GFR & GFRAA in patients over 70 years has not been determined. Clinical correlation is essential. Serum or plasma urea nitroge n measurement (mass/volume)Ordered By: [facility] العراقيkathy on 11-08-2022 Urea nitrogen [Mass/Vol] 20 mg/dL 7-18 [facility] Thin prep Papanicolaou smear with manual screeningOrdered By: [facility] ال[facility]راقيkathy on 11-08-2022 Thin prep Papanicolaou smear with manual screening 5 5-15 [facility] Absolute lymphocyte countOrd ered By: Barbie Tolbert on 10-21-2022 Lymphocytes Auto (Unsp spec) [#/Vol] 2.31 10*3/uL 0.83-4.51 [facility] Basophil percentageOrdered B y: Barbie Tolbert on 10-21-2022 Basophils/100 WBC (Bld) 0.5 % 0-1 [facility] Chloride [Moles/Vol] 108 mmol/L 98-107 [facility] Eosinophils/100 WBC (Bld) 2.1 % 0-5 [facility] Glucose [Mass/Vol] 111 mg/dL 74-106 [facility] Comment on above: Fasting Glucose resu lt from 100 to 125 mg/dL suggests IMPAIRED HOMEOSTASIS per A.D.A. criteria. Neutrophils (Bld) [#/Vol] 4.5 10*3/uL 2.0-7.7 [facility] Neutrophils/100 WBC (Bld) 59.0 % 47-70 [facility] Potassium [Moles/Vol] 3.9 mmol/L 3.5-5.1 [facility] Sodium [Moles/Vol] 140 mmol/L 136-145 [facility] WBC (Bld) [#/Vol] 7.7 10*3/uL 4.4-11.0 [facility] Blood erythrocytes count (nu mber/volume)Ordered By: Barbie Tolbert on 10-21-2022 RBC (Bld) [#/Vol] 4.48 10*6/uL 4.2-5.4 [facility] Blood hemoglobin measurement (mass/volume)Ordered By: Barbie Tolbert on 10-21-2022 Hemoglobin (Bld) [Mass/Vol] 13.8 g/dL 12.0-15.0 [facility] Blood lymphocytes/100 leukoc ytesOrdered By: Barbie Tolbert on 10-21-2022 Lymphocytes/100 WBC (Bld) 30.0 % 19-41 [facility] Blood monocytes/100 leukocyt esOrdered By: Barbie Tolbert on 10-21-2022 Monocytes/100 WBC (Bld) 8.1 % 0-10 [facility] Blood platelet mean volumeOr dered By: Barbie Tolbert on 10-21-2022 Platelet mean volume (Bld) [Entitic vol] 9.5 fL 6.2-12.0 [facility] Determination of erythrocyte mean corpuscular volume (MCV)Ordered By: Barbie Tolbert on 10-21-2022 MCV (RBC) [Entitic vol] 94.6 fL 81-99 [facility] Hematocrit Auto (Bld) [Volum e fraction]Ordered By: Barbie Tolbert on 10-21-2022 Hematocrit (Bld) [Volume fraction] 42.4 % 37-47 [facility] Laboratory - Chemistry and C hemistry - challengeOrdered By: Barbie Tolbert on 10-21-2022 CO2 [Moles/Vol] 25.0 mmol/L 21.0-32.0 [facility] Urea nitrogen/Creatinine [Mass ratio] 26.4 mg/mg 10-20 [facility] Laboratory - Hematology and Cell countsOrdered By: Barbie Tolbert on 10-21-2022 Erythrocyte distribution width (RBC) [Entitic vol] 44.0 fL 35.1-43.9 [facility] Erythrocyte distribution width (RBC) [Ratio] 12.6 % 11.6-14.6 [facility] Immature granulocytes/100 WBC (Bld) 0.300 % 0.0-0.9 [facility] Comment on above: IG% - Immature Granu locytes (promyelocytes, myelocytes and metamyelocytes) > 1% indicates that a LEFT SHIFT is Present. MCH (RBC) [Entitic mass] 30.8 pg 27.0-32.0 [facility] Nucleated RBC/100 WBC (Bld) [Ratio] 0 % 0-5 [facility] MCHC Auto (RBC) [Mass/Vol]Or dered By: Barbie Tolbert on 10-21-2022 MCHC (RBC) [Mass/Vol] 32.5 g/dL 32-36 [facility] No Panel InformationOrdered By: Barbie Tolbert on 10-21-2022 Estimated GFR (MDRD) Amer 75 mL/min >60 [facility] Comment on above: GFR Calc Estimated GFR (MDRD) Non-Af Amer 62 mL/min >60 [facility] Comment on above: Non- GFR Calc Platelets bldOrdered By: Jeferson Tolbert on 10-21-2022 Platelets (Bld) [#/Vol] 227 10*3/uL 150-450 [facility] Serum or plasma calcium leah urement (mass/volume)Ordered By: Barbie Tolbert on 10-21-2022 Calcium [Mass/Vol] 8.9 mg/dL 8.5-10.1 [facility] Serum or plasma creatinine m easurement (mass/volume)Ordered By: Barbie Tolbert on 10-21-2022 Creatinine [Mass/Vol] 0.95 mg/dL 0.55-1.02 [facility] Comment on above: The validity of the calculated GFR & GFRAA in patients over 70 years has not been determined. Clinical correlation is essential. Serum or plasma urea nitroge n measurement (mass/volume)Ordered By: Barbie Tolbert on 10-21-2022 Urea nitrogen [Mass/Vol] 25 mg/dL - [facility] Thin prep Papanicolaou smear with manual screeningOrdered By: Barbie Tolbert on 10-21-2022 Thin prep Papanicolaou smear with manual screening 7 5-15 [facility] Absolute lymphocyte countOrd ered By: Dr. Parry on 09-16-2022 Lymphocytes Auto (Unsp spec) [#/Vol] 2.61 10*3/uL 0.83-4.51 [facility] Basophil percentageOrdered B y: Dr. Parry on 09-16-2022 Basophil percentage 0 SEEN /hpf 0-5 [facility] Basophils/100 WBC (Bld) 0.4 % 0-1 [facility] Chloride [Moles/Vol] 104 mmol/L 98-107 [facility] Eosinophils/100 WBC (Bld) 1.6 % 0-5 [facility] Glucose [Mass/Vol] 94 mg/dL 74-106 [facility] Neutrophils (Bld) [#/Vol] 5.5 10*3/uL 2.0-7.7 [facility] Neutrophils/100 WBC (Bld) 60.9 % 47-70 [facility] Potassium [Moles/Vol] 4.0 mmol/L 3.5-5.1 [facility] Sodium [Moles/Vol] 136 mmol/L 136-145 [facility] WBC (Bld) [#/Vol] 9.0 10*3/uL 4.4-11.0 [facility] Bilirubin Test strip Ql (U)O rdered By: Dr. Parry on 09-16-2022 Bilirubin Ql (U) Negative Negative [facility] Blood erythrocytes count (nu mber/volume)Ordered By: Dr. Parry on 09-16-2022 RBC (Bld) [#/Vol] 4.75 10*6/uL 4.2-5.4 [facility] Blood hemoglobin measurement (mass/volume)Ordered By: Dr. Parry on 09-16-2022 Hemoglobin (Bld) [Mass/Vol] 14.8 g/dL 12.0-15.0 [facility] Blood lymphocytes/100 leukoc ytesOrdered By: Dr. Parry on 09-16-2022 Lymphocytes/100 WBC (Bld) 29.1 % 19-41 [facility] Blood monocytes/100 leukocyt esOrdered By: Dr. Parry on 09-16-2022 Monocytes/100 WBC (Bld) 7.7 % 0-10 [facility] Blood platelet mean volumeOr dered By: Dr. Parry on 09-16-2022 Platelet mean volume (Bld) [Entitic vol] 9.1 fL 6.2-12.0 [facility] Determination of erythrocyte mean corpuscular volume (MCV)Ordered By: Dr. Parry on 09-16-2022 MCV (RBC) [Entitic vol] 93.3 fL 81-99 [facility] Hematocrit Auto (Bld) [Volum e fraction]Ordered By: Dr. Parry on 09-16-2022 Hematocrit (Bld) [Volume fraction] 44.3 % 37-47 [facility] Ketones Test strip Ql (U)Ord ered By: Dr. Parry on 09-16-2022 Ketones Ql (U) 5 mg/dl Negative [facility] Laboratory - Chemistry and C hemistry - challengeOrdered By: Dr. Parry on 09-16-2022 CO2 [Moles/Vol] 27.0 mmol/L 21.0-32.0 [facility] Natriuretic peptide B (Bld) [Mass/Vol] 40.8 pg/mL 0-100 [facility] Urea nitrogen/Creatinine [Mass ratio] 21.2 mg/mg 10-20 [facility] Laboratory - Hematology and Cell countsOrdered By: Dr. Parry on 09-16-2022 Erythrocyte distribution width (RBC) [Entitic vol] 43.0 fL 35.1-43.9 [facility] Erythrocyte distribution width (RBC) [Ratio] 12.5 % 11.6-14.6 [facility] Immature granulocytes/100 WBC (Bld) 0.300 % 0.0-0.9 [facility] Comment on above: IG% - Immature Granu locytes (promyelocytes, myelocytes and metamyelocytes) > 1% indicates that a LEFT SHIFT is Present. MCH (RBC) [Entitic mass] 31.2 pg 27.0-32.0 [facility] Nucleated RBC/100 WBC (Bld) [Ratio] 0 % 0-5 [facility] MCHC Auto (RBC) [Mass/Vol]Or dered By: Dr. Parry on 09-16-2022 MCHC (RBC) [Mass/Vol] 33.4 g/dL 32-36 [facility] Mucus LM Ql (Urine sed)Order ed By: Dr. Parry on 09-16-2022 Mucus Ql (Urine sed) 0 SEEN /hpf [facility] Nitrite Test strip Ql (U)Ord ered By: Dr. Parry on 09-16-2022 Nitrite Ql (U) Negative Negative [facility] No Panel InformationOrdered By: Dr. Parry on 09-16-2022 Estimated Creatinine Clearance Calc 52.15 ml/min [facility] Estimated GFR (MDRD) Amer 72 mL/min >60 [facility] Comment on above: GFR Calc Estimated GFR (MDRD) Non-Af Amer 59 mL/min >60 [facility] Comment on above: Non- GFR Calc Troponin I High Sensitivity 10 pg/mL 3.0-54.0 [facility] Comment on above: Please Note: New Ying t Units and Gender Specific Reference Ranges. For more information see Policy Stat Procedure [place] High Sensitivity Troponin (TNIH) and attachments. Platelets bldOrdered By: Dr. Parry on 09-16-2022 Platelets (Bld) [#/Vol] 247 10*3/uL 150-450 [facility] Protein Test strip Ql (U)Ord ered By: Dr. Parry on 09-16-2022 Protein Ql (U) Negative Negative [facility] Serum or plasma calcium leah urement (mass/volume)Ordered By: Dr. Parry on 09-16-2022 Calcium [Mass/Vol] 9.4 mg/dL 8.5-10.1 [facility] Serum or plasma creatinine m easurement (mass/volume)Ordered By: Dr. Parry on 09-16-2022 Creatinine [Mass/Vol] 0.99 mg/dL 0.55-1.02 [facility] Comment on above: The validity of the calculated GFR & GFRAA in patients over 70 years has not been determined. Clinical correlation is essential. Serum or plasma urea nitroge n measurement (mass/volume)Ordered By: Dr. Parry on 09-16-2022 Urea nitrogen [Mass/Vol] 21 mg/dL 7-18 [facility] Squamous epithelial cells de tection in urine sediment by light microscopyOrdered By: Dr. Parry on 09-16-2022 Epithelial cells.squamous LM Ql (Urine sed) 0-5 SEEN /hpf 5-10 [facility] Thin prep Papanicolaou smear with manual screeningOrdered By: Dr. Parry on 09-16-2022 Thin prep Papanicolaou smear with manual screening 5 5-15 [facility] Urine blood detectionOrdered By: Dr. Parry on 09-16-2022 RBC Ql (U) Negative Negative [facility] RBC Ql (U) 0 SEEN /hpf 0-5 [facility] Urine clarityOrdered By: Dr. Parry on 09-16-2022 Clarity (U) Clear Clear [facility] Urine color determinationOrd ered By: Dr. Parry on 09-16-2022 Color (U) Straw Yellow [facility] Urine glucose detectionOrder ed By: Dr. Parry on 09-16-2022 Glucose Ql (U) Normal mg/dl Normal [facility] Urine leukocyte esterase det ection by dipstickOrdered By: Dr. Parry on 09-16-2022 Leukocyte esterase Test strip Ql (U) Negative Negative [facility] Urine pHOrdered By: Dr. Ruben lainez on 09-16-2022 pH (U) 6.5 [pH] 5.0 - 8.0 [facility] Urine sediment bacteria coun t by microscopy (number/high power field)Ordered By: Dr. Parry on 09-16-2022 Bacteria LM.HPF (Urine sed) [#/Area] 0 /[HPF] None Seen [facility] Urine specific gravity measu rementOrdered By: Dr. Parry on 09-16-2022 Specific gravity (U) [Rel density] 1.005 1.002-1.030 [facility] Urobilinogen Auto test strip Ql (U)Ordered By: Dr. Parry on 09-16-2022 Urobilinogen Ql (U) Normal mg/dl Normal [facility] Basophil percentageon 2021 Basophil percentage 0 SEEN /hpf 0-5 [facility] Work Phone: Bilirubin Test strip Ql (U)o n 04-04-2022 Bilirubin Ql (U) Negative Negative [facility] Work Phone: Ketones Test strip Ql (U)on 04-04-2022 Ketones Ql (U) Negative Negative [facility] Work Phone: Mucus LM Ql (Urine sed)on Mucus Ql (Urine sed) 0 SEEN /hpf [facility] Work Phone: Nitrite Test strip Ql (U)on 04-04-2022 Nitrite Ql (U) Negative Negative [facility] Work Phone: Protein Test strip Ql (U)on 04-04-2022 Protein Ql (U) 15 mg/dl Negative [facility] Work Phone: Squamous epithelial cells de tection in urine sediment by light microscopyon 04-04-2022 Epithelial cells.squamous LM Ql (Urine sed) 0 SEEN /hpf 5-10 [facility] Work Phone: Urine blood detectionon RBC Ql (U) 10 /ul Negative [facility] Work Phone: RBC Ql (U) 0 SEEN /hpf 0-5 [facility] Work Phone: Urine clarityon 04-04-2022 Clarity (U) Clear Clear [facility] Work Phone: Urine color determinationon 04-04-2022 Color (U) Yellow Yellow [facility] Work Phone: Urine glucose detectionon Glucose Ql (U) Normal mg/dl Normal [facility] Work Phone: Urine leukocyte esterase det ection by dipstickon 04-04-2022 Leukocyte esterase Test strip Ql (U) 25 /ul Negative [facility] Work Phone: Urine pHon 04-04-2022 pH (U) 6.0 [pH] 5.0 - 8.0 [facility] Work Phone: Urine sediment bacteria coun t by microscopy (number/high power field)on 04-04-2022 Bacteria LM.HPF (Urine sed) [#/Area] 0 /[HPF] None Seen [facility] Work Phone: Urine specific gravity measu rementon 04-04-2022 Specific gravity (U) [Rel density] 1.015 1.002-1.030 [facility] Work Phone: Urobilinogen Auto test strip Ql (U)on 04-04-2022 Urobilinogen Ql (U) Normal mg/dl Normal [facility] Work Phone: Basophil percentageon 2021 Chloride [Moles/Vol] 105 mmol/L 98-107 [facility] Work Phone: Glucose [Mass/Vol] 97 mg/dL 74-106 [facility] Work Phone: Potassium [Moles/Vol] 4.3 mmol/L 3.5-5.1 [facility] Work Phone: Sodium [Moles/Vol] 138 mmol/L 136-145 [facility] Work Phone: WBC (Bld) [#/Vol] 8.5 10*3/uL 4.4-11.0 [facility] Work Phone: Blood erythrocytes count (nu mber/volume)on 04-03-2022 RBC (Bld) [#/Vol] 4.74 10*6/uL [facility]2-[facility]: Blood hemoglobin measurement (mass/volume)on 04-03-2022 Hemoglobin (Bld) [Mass/Vol] 14.8 g/dL 12.0-15.0 [facility] Work Phone: Blood platelet mean volumeon 04-03-2022 Platelet mean volume (Bld) [Entitic vol] 9.5 fL 6.2-12.0 [facility] Work Phone: Determination of erythrocyte mean corpuscular volume (MCV)on 04-03-2022 MCV (RBC) [Entitic vol] 94.7 fL 81-99 [facility] Work Phone: Hematocrit Auto (Bld) [Volum e fraction]on 04-03-2022 Hematocrit (Bld) [Volume fraction] 44.9 % 37-47 [facility] Work Phone: Laboratory - Chemistry and C hemistry - challengeon 04-03-2022 CO2 [Moles/Vol] 29.0 mmol/L 21.0-32.0 [facility] Work Phone: Magnesium [Mass/Vol] 2.3 mg/dL 1.6-2.6 [facility] Work Phone: Natriuretic peptide B (Bld) [Mass/Vol] 143.8 pg/mL 0-100 [facility] Work Phone: Urea nitrogen/Creatinine [Mass ratio] 23.5 mg/mg 10-20 [facility] Work Phone: Laboratory - Hematology and Cell countson 04-03-2022 Erythrocyte distribution width (RBC) [Entitic vol] 44.0 fL 35.1-43.9 [facility] Work Phone: Erythrocyte distribution width (RBC) [Ratio] 12.6 % 11.6-14.6 [facility] Work Phone: MCH (RBC) [Entitic mass] 31.2 pg 27.0-32.0 [facility] Work Phone: MCHC Auto (RBC) [Mass/Vol]on 04-03-2022 MCHC (RBC) [Mass/Vol] 33.0 g/dL 32-36 [facility] Work Phone: No Panel Informationon 04-03 Estimated GFR (MDRD) Amer 73 mL/min >60 [facility] Work Phone: Comment on above: GFR Calc Estimated GFR (MDRD) Non-Af Amer 60 mL/min >60 [facility] Work Phone: Comment on above: Non- GFR Calc Thyroid Stimulating Hormone (TSH) 1.04 uIU/mL 0.358-3.74 [facility] Work Phone: Platelets bldon 04-03-2022 Platelets (Bld) [#/Vol] 244 10*3/uL 150-450 [facility] Work Phone: Serum or plasma calcium leah urement (mass/volume)on 04-03-2022 Calcium [Mass/Vol] 9.4 mg/dL 8.5-10.1 [facility] Work Phone: Serum or plasma creatinine m easurement (mass/volume)on 04-03-2022 Creatinine [Mass/Vol] 0.98 mg/dL 0.55-1.02 [facility] Work Phone: Comment on above: The validity of the calculated GFR & GFRAA in patients over 70 years has not been determined. Clinical correlation is essential. Serum or plasma urea nitroge n measurement (mass/volume)on 04-03-2022 Urea nitrogen [Mass/Vol] 23 mg/dL 7-18 [facility] Work Phone: Thin prep Papanicolaou smear with manual screeningon 04-03-2022 Thin prep Papanicolaou smear with manual screening 4 5-15 [facility] Work Phone: Absolute lymphocyte counton 02-11-2022 Lymphocytes Auto (Unsp spec) [#/Vol] 2.32 10*3/uL 0.83-4.51 [facility] Work Phone: Basophil percentageon 2021 Basophils/100 WBC (Bld) 0.4 % 0-1 [facility] Work Phone: Chloride [Moles/Vol] 106 mmol/L 98-107 [facility] Work Phone: Eosinophils/100 WBC (Bld) 1.6 % 0-5 [facility] Work Phone: Glucose [Mass/Vol] 117 mg/dL 74-106 [facility] Work Phone: Comment on above: Fasting Glucose resu lt from 100 to 125 mg/dL suggests IMPAIRED HOMEOSTASIS per A.D.A. criteria. Neutrophils (Bld) [#/Vol] 8.0 10*3/uL 2.0-7.7 [facility] Work Phone: Neutrophils/100 WBC (Bld) 70.1 % 47-70 [facility] Work Phone: Potassium [Moles/Vol] 4.3 mmol/L 3.5-5.1 [facility] Work Phone: Sodium [Moles/Vol] 140 mmol/L 136-145 [facility] Work Phone: WBC (Bld) [#/Vol] 11.4 10*3/uL 4.4-11.0 [facility] Work [facility]: Blood erythrocytes count (nu mber/volume)on 02-11-2022 RBC (Bld) [#/Vol] 5.17 10*6/uL 4.2-5.4 [facility] Work Phone: Blood hemoglobin measurement (mass/volume)on 02-11-2022 Hemoglobin (Bld) [Mass/Vol] 16.0 g/dL 12.0-15.0 [facility] Work Phone: Blood lymphocytes/100 leukoc yteson 02-11-2022 Lymphocytes/100 WBC (Bld) 20.4 % 19-41 [facility] Work Phone: Blood monocytes/100 leukocyt eson 02-11-2022 Monocytes/100 WBC (Bld) 7.1 % 0-10 [facility] Work Phone: Blood platelet mean volumeon 02-11-2022 Platelet mean volume (Bld) [Entitic vol] 9.6 fL 6.2-12.0 [facility] Work Phone: Determination of erythrocyte mean corpuscular volume (MCV)on 02-11-2022 MCV (RBC) [Entitic vol] 95.6 fL 81-99 [facility] Work Phone: Hematocrit Auto (Bld) [Volum e fraction]on 02-11-2022 Hematocrit (Bld) [Volume fraction] 49.4 % 37-47 [facility] Work Phone: Laboratory - Chemistry and C hemistry - challengeon 09-14-2022 CO2 [Moles/Vol] 27.0 mmol/L 21.0-32.0 [facility] Work Phone: Magnesium [Mass/Vol] 2.1 mg/dL 1.6-2.6 [facility] Work Phone: Urea nitrogen/Creatinine [Mass ratio] 17.2 mg/mg 10-20 [facility] Work Phone: Laboratory - Hematology and Cell countson 02-11-2022 Erythrocyte distribution width (RBC) [Entitic vol] 46.5 fL 35.1-43.9 [facility] Work Phone: Erythrocyte distribution width (RBC) [Ratio] 13.2 % 11.6-14.6 [facility] Work Phone: Immature granulocytes/100 WBC (Bld) 0.400 % 0.0-0.9 [facility] Work Phone: Comment on above: IG% - Immature Granu locytes (promyelocytes, myelocytes and metamyelocytes) > 1% indicates that a LEFT SHIFT is Present. MCH (RBC) [Entitic mass] 30.9 pg 27.0-32.0 [facility] Work Phone: Nucleated RBC/100 WBC (Bld) [Ratio] 0 % 0-5 [facility] Work Phone: MCHC Auto (RBC) [Mass/Vol]on 02-11-2022 MCHC (RBC) [Mass/Vol] 32.4 g/dL 32-36 [facility] Work Phone: No Panel Informationon 02-11 Troponin I High Sensitivity 36 pg/mL 3.0-54.0 [facility] Work Phone: Comment on above: Please Note: New Ying t Units and Gender Specific Reference Ranges. For more information see Policy Stat Procedure [place] High Sensitivity Troponin (TNIH) and attachments. Estimated Creatinine Clearance Calc 40.91 ml/min [facility] Work Phone: Estimated GFR (MDRD) Amer 53 mL/min >60 [facility] Work Phone: Comment on above: GFR Calc Estimated GFR (MDRD) Non-Af Amer 44 mL/min >60 [facility] Work Phone: Comment on above: Non- GFR Calc Troponin I High Sensitivity 18 pg/mL 3.0-54.0 [facility] Work Phone: Comment on above: Please Note: New Ying t Units and Gender Specific Reference Ranges. For more information see Policy Stat Procedure [place] High Sensitivity Troponin (TNIH) and attachments. Platelets bldon 02-11-2022 Platelets (Bld) [#/Vol] 256 10*3/uL 150-450 [facility] Work Phone: Serum or plasma calcium leah urement (mass/volume)on 02-11-2022 Calcium [Mass/Vol] 9.5 mg/dL 8.5-10.1 [facility] Work Phone: Serum or plasma creatinine m easurement (mass/volume)on 02-11-2022 Creatinine [Mass/Vol] 1.28 mg/dL 0.55-1.02 [facility] Work Phone: Comment on above: The validity of the calculated GFR & GFRAA in patients over 70 years has not been determined. Clinical correlation is essential. Serum or plasma urea nitroge n measurement (mass/volume)on 02-11-2022 Urea nitrogen [Mass/Vol] 22 mg/dL 7-18 [facility] Work Phone: Thin prep Papanicolaou smear with manual screeningon 02-11-2022 Thin prep Papanicolaou smear with manual screening 7 5-15 [facility] Work Phone: Absolute lymphocyte counton 12-20-2021 Lymphocytes Auto (Unsp spec) [#/Vol] 0.97 10*3/uL 0.83-4.51 [facility] Work Phone: Basophil percentageon 2021 Basophil percentage 0 SEEN /hpf 0-5 [facility] Work Phone: Basophils/100 WBC (Bld) 0.5 % 0-1 [facility] Work Phone: [phone] Bilirubin [Mass/Vol] 0.40 mg/dL 0.20-1.00 [facility] Work Phone: [phone] Comment on above: For patients on eltr ombopag therapy, use of Dimension [place] TBIL is not recommended. Chloride [Moles/Vol] 110 mmol/L 98-107 [facility] Work Phone: Eosinophils/100 WBC (Bld) 0.2 % 0-5 [facility] Work Phone: Glucose [Mass/Vol] 109 mg/dL 74-106 [facility] Work Phone: Comment on above: Fasting Glucose resu lt from 100 to 125 mg/dL suggests IMPAIRED HOMEOSTASIS per A.D.A. criteria. Neutrophils (Bld) [#/Vol] 2.4 10*3/uL 2.0-7.7 [facility] Work Phone: Neutrophils/100 WBC (Bld) 54.8 % 47-70 [facility] Work Phone: Potassium [Moles/Vol] 4.3 mmol/L 3.5-5.1 [facility] Work Phone: Protein [Mass/Vol] 7.2 g/dL 6.4-8.2 [facility] Work Phone: Sodium [Moles/Vol] 138 mmol/L 136-145 [facility] Work Phone: WBC (Bld) [#/Vol] 4.4 10*3/uL 4.4-11.0 [facility] Work Phone: Bilirubin Test strip Ql (U)o n 12-20-2021 Bilirubin Ql (U) Negative Negative [facility] Work Phone: Blood erythrocytes count (nu mber/volume)on 12-20-2021 RBC (Bld) [#/Vol] 4.86 10*6/uL 4.2-5.4 [facility] Work Phone: Blood hemoglobin measurement (mass/volume)on 12-20-2021 Hemoglobin (Bld) [Mass/Vol] 15.5 g/dL 12.0-15.0 [facility] Work Phone: Blood lymphocytes/100 leukoc yteson 12-20-2021 Lymphocytes/100 WBC (Bld) 21.9 % 19-41 [facility] Work Phone: Blood monocytes/100 leukocyt eson 12-20-2021 Monocytes/100 WBC (Bld) 22.1 % 0-10 [facility] Work Phone: Blood platelet mean volumeon 12-20-2021 Platelet mean volume (Bld) [Entitic vol] 9.4 fL 6.2-12.0 [facility] Work Phone: Determination of erythrocyte mean corpuscular volume (MCV)on 12-20-2021 MCV (RBC) [Entitic vol] 94.4 fL 81-99 [facility] Work Phone: Direct bilirubinon 2 Bilirubin.direct [Mass/Vol] 0.13 mg/dL 0.00-0.30 [facility] Work Phone: Hematocrit Auto (Bld) [Volum e fraction]on 12-20-2021 Hematocrit (Bld) [Volume fraction] 45.9 % 37-47 [facility] Work Phone: Ketones Test strip Ql (U)on 12-20-2021 Ketones Ql (U) Negative Negative [facility] Work Phone: Laboratory - Chemistry and C hemistry - challengeon 12-20-2021 ALP [Catalytic activity/Vol] 55 U/L 45-117 [facility] Work Phone: ALT [Catalytic activity/Vol] 24 U/L 13-56 [facility] Work Phone: CO2 [Moles/Vol] 25.0 mmol/L 21.0-32.0 [facility] Work Phone: Globulin (S) [Mass/Vol] 3.7 g/dL 2.2-4.2 [facility] Work Phone: Urea nitrogen/Creatinine [Mass ratio] 11.8 mg/mg 10-20 [facility] Work Phone: Laboratory - Hematology and Cell countson 12-20-2021 Erythrocyte distribution width (RBC) [Entitic vol] 47.9 fL 35.1-43.9 [facility] Work Phone: Erythrocyte distribution width (RBC) [Ratio] 13.6 % 11.6-14.6 [facility] Work Phone: Immature granulocytes/100 WBC (Bld) 0.500 % 0.0-0.9 [facility] Work Phone: Comment on above: IG% - Immature Granu locytes (promyelocytes, myelocytes and metamyelocytes) > 1% indicates that a LEFT SHIFT is Present. MCH (RBC) [Entitic mass] 31.9 pg 27.0-32.0 [facility] Work Phone: Nucleated RBC/100 WBC (Bld) [Ratio] 0 % 0-5 [facility] Work Phone: MCHC Auto (RBC) [Mass/Vol]on 12-20-2021 MCHC (RBC) [Mass/Vol] 33.8 g/dL 32-36 [facility] Work Phone: Mucus LM Ql (Urine sed)on Mucus Ql (Urine sed) 0 SEEN /hpf [facility] Work Phone: Nitrite Test strip Ql (U)on 12-20-2021 Nitrite Ql (U) Negative Negative [facility] Work Phone: No Panel Informationon 12-20 Estimated Creatinine Clearance Calc 44.00 ml/min [facility] Work Phone: Estimated GFR (MDRD) Amer 58 mL/min >60 [facility] Work Phone: Comment on above: GFR Calc Estimated GFR (MDRD) Non-Af Amer 48 mL/min >60 [facility] Work Phone: Comment on above: Non- GFR Calc Platelets bldon 12-20-2021 Platelets (Bld) [#/Vol] 161 10*3/uL 150-450 [facility] Work Phone: Protein Test strip Ql (U)on 12-20-2021 Protein Ql (U) Negative Negative [facility] Work Phone: Serum or plasma albumin leah urement (mass/volume)on 12-20-2021 Albumin [Mass/Vol] 3.5 g/dL 3.2-5.0 [facility] Work Phone: Serum or plasma calcium leah urement (mass/volume)on 12-20-2021 Calcium [Mass/Vol] 8.9 mg/dL 8.5-10.1 [facility] Work Phone: Serum or plasma creatinine m easurement (mass/volume)on 12-20-2021 Creatinine [Mass/Vol] 1.19 mg/dL 0.55-1.02 [facility] Work Phone: Comment on above: The validity of the calculated GFR & GFRAA in patients over 70 years has not been determined. Clinical correlation is essential. Serum or plasma urea nitroge n measurement (mass/volume)on 12-20-2021 Urea nitrogen [Mass/Vol] 14 mg/dL 7-18 [facility] Work Phone: Squamous epithelial cells de tection in urine sediment by light microscopyon 12-20-2021 Epithelial cells.squamous LM Ql (Urine sed) 0 SEEN /hpf 5-10 [facility] Work Phone: Thin prep Papanicolaou smear with manual screeningon 12-20-2021 Thin prep Papanicolaou smear with manual screening 18 U/L 15-37 [facility] Work Phone: Thin prep Papanicolaou smear with manual screening 3 5-15 [facility] Work Phone: Urine blood detectionon 11-29 RBC Ql (U) 10 /ul Negative [facility] Work Phone: RBC Ql (U) 0 SEEN /hpf 0-5 [facility] Work Phone: Urine clarityon 12-20-2021 Clarity (U) Clear Clear [facility] Work Phone: Urine color determinationon 12-20-2021 Color (U) Yellow Yellow [facility] Work Phone: Urine glucose detectionon Glucose Ql (U) Normal mg/dl Normal [facility] Work Phone: Urine leukocyte esterase det ection by dipstickon 12-20-2021 Leukocyte esterase Test strip Ql (U) Negative Negative [facility] Work Phone: Urine pHon 12-20-2021 pH (U) 6.5 [pH] 5.0 - 8.0 [facility] Work Phone: Urine sediment bacteria coun t by microscopy (number/high power field)on 12-20-2021 Bacteria LM.HPF (Urine sed) [#/Area] RARE /hpf None Seen [facility] Work Phone: Urine specific gravity measu rementon 12-20-2021 Specific gravity (U) [Rel density] 1.005 1.002-1.030 [facility] Work Phone: Urobilinogen Auto test strip Ql (U)on 12-20-2021 Urobilinogen Ql (U) Normal mg/dl Normal [facility] Work Phone: Absolute lymphocyte counton 11-20-2021 Lymphocytes Auto (Unsp spec) [#/Vol] 2.66 10*3/uL 0.83-4.51 [facility] Work Phone: Basophil percentageon 2021 Basophils/100 WBC (Bld) 0.6 % 0-1 [facility] Work Phone: Bilirubin [Mass/Vol] 0.70 mg/dL 0.20-1.00 [facility] Work Phone: Comment on above: For patients on eltr ombopag therapy, use of Dimension [place] TBIL is not recommended. Chloride [Moles/Vol] 109 mmol/L 98-107 [facility] Work Phone: Eosinophils/100 WBC (Bld) 1.3 % 0-5 [facility] Work Phone: Glucose [Mass/Vol] 103 mg/dL 74-106 [facility] Work Phone: Comment on above: Fasting Glucose resu lt from 100 to 125 mg/dL suggests IMPAIRED HOMEOSTASIS per A.D.A. criteria. Neutrophils (Bld) [#/Vol] 5.5 10*3/uL 2.0-7.7 [facility] Work Phone: Neutrophils/100 WBC (Bld) 60.6 % 47-70 [facility] Work Phone: Potassium [Moles/Vol] 4.6 mmol/L 3.5-5.1 [facility] Work Phone: Protein [Mass/Vol] 7.6 g/dL 6.4-8.2 [facility] Work Phone: Sodium [Moles/Vol] 140 mmol/L 136-145 [facility] Work Phone: WBC (Bld) [#/Vol] 9.1 10*3/uL 4.4-11.0 [facility] Work Phone: Basophil percentage 25-50 SEEN /hpf 0-5 [facility] Work Phone: Bilirubin Test strip Ql (U)o n 11-20-2021 Bilirubin Ql (U) Negative Negative [facility] Work Phone: Blood erythrocytes count (nu mber/volume)on 11-20-2021 RBC (Bld) [#/Vol] 5.28 10*6/uL 4.2-5.4 [facility] Work Phone: Blood hemoglobin measurement (mass/volume)on 11-20-2021 Hemoglobin (Bld) [Mass/Vol] 15.9 g/dL 12.0-15.0 [facility] Work Phone: Blood lymphocytes/100 leukoc yteson 11-20-2021 Lymphocytes/100 WBC (Bld) 29.4 % 19-41 [facility] Work Phone: Blood monocytes/100 leukocyt eson 11-20-2021 Monocytes/100 WBC (Bld) 7.8 % 0-10 [facility] Work Phone: Blood platelet mean volumeon 11-20-2021 Platelet mean volume (Bld) [Entitic vol] 9.9 fL 6.2-12.0 [facility] Work Phone: Determination of erythrocyte mean corpuscular volume (MCV)on 11-20-2021 MCV (RBC) [Entitic vol] 94.1 fL 81-99 [facility] Work Phone: Hematocrit Auto (Bld) [Volum e fraction]on 11-20-2021 Hematocrit (Bld) [Volume fraction] 49.7 % 37-47 [facility] Work Phone: Ketones Test strip Ql (U)on 11-20-2021 Ketones Ql (U) 5 mg/dl Negative [facility] Work Phone: Laboratory - Chemistry and C hemistry - challengeon 11-20-2021 ALP [Catalytic activity/Vol] 56 U/L 45-117 [facility] Work Phone: ALT [Catalytic activity/Vol] 25 U/L 13-56 [facility] Work Phone: CO2 [Moles/Vol] 26.0 mmol/L 21.0-32.0 [facility] Work Phone: Globulin (S) [Mass/Vol] 3.8 g/dL 2.2-4.2 [facility] Work Phone: Natriuretic peptide B (Bld) [Mass/Vol] 182.8 pg/mL 0-100 [facility] Work Phone: Urea nitrogen/Creatinine [Mass ratio] 17.9 mg/mg 10-20 [facility] Work Phone: Laboratory - Hematology and Cell countson 11-20-2021 Erythrocyte distribution width (RBC) [Entitic vol] 51.7 fL 35.1-43.9 [facility] Work Phone: Erythrocyte distribution width (RBC) [Ratio] 14.8 % 11.6-14.6 [facility] Work Phone: Immature granulocytes/100 WBC (Bld) 0.300 % 0.0-0.9 [facility] Work Phone: Comment on above: IG% - Immature Granu locytes (promyelocytes, myelocytes and metamyelocytes) > 1% indicates that a LEFT SHIFT is Present. MCH (RBC) [Entitic mass] 30.1 pg 27.0-32.0 [facility] Work Phone: Nucleated RBC/100 WBC (Bld) [Ratio] 0 % 0-5 [facility] Work Phone: Laboratory - Microbiology an d Antimicrobial susceptibilityon 11-20-2021 SARS-CoV-2 (COVID-19) RNA SERGIO+probe Ql (Unsp spec) Not detected Not Detect [facility] Work Phone: Comment on above: Normal Reference Ran ge: Not DetectedMethod:(RT-PCR) real-time reverse transcriptase PCRLuminex ANDREI Instrument*The Food and Drug Administration (FDA) has issued an Emergency Use Authorization (EAU) for the ANDREI SARS-CoV-2 Assay for the rapid detection of the virus that causes COVID-19. This test has been validated, but the FDAs independent review of this validation is pending.*Negative results do not preclude infection and should not be used as the sole basis for treatment or patient management. Optimum specimen types and timing for peak viral levels during infections caused by SARS-CoV-2 have not been determined. Collection of multiple specimens from the same patient may be necessary to detect the virus. The possibility of a false negative result should be considered if the patient has clinical presentation or has had recent exposure. MCHC Auto (RBC) [Mass/Vol]on 11-20-2021 MCHC (RBC) [Mass/Vol] 32.0 g/dL 32-36 [facility] Work Phone: Mucus LM Ql (Urine sed)on Mucus Ql (Urine sed) 0 SEEN /hpf [facility] Work Phone: Nitrite Test strip Ql (U)on 11-20-2021 Nitrite Ql (U) Positive Negative [facility] Work Phone: No Panel Informationon 11-20 Vitamin D 25-Hydroxy 15.9 ng/mL [facility] Work Phone: Comment on above: Vitamin D 25(OH) Sta tus Range Deficiency <20 ng/mL (50nmol/L) Insufficiency 20 - 30 ng/mL (50 - 75 nmol/L) Sufficiency 30 - 100 ng/mL (75 - 250 nmol/L) Toxicity >100 ng/mL (>250 nmol/L) Estimated GFR (MDRD) Amer 56 mL/min >60 [facility] Work Phone: Comment on above: GFR Calc Estimated GFR (MDRD) Non-Af Amer 46 mL/min >60 [facility] Work Phone: Comment on above: Non- GFR Calc Thyroid Stimulating Hormone (TSH) 0.70 uIU/mL 0.358-3.74 [facility] Work Phone: Platelets bldon 11-20-2021 Platelets (Bld) [#/Vol] 270 10*3/uL 150-450 [facility] Work Phone: Protein Test strip Ql (U)on 11-20-2021 Protein Ql (U) 30 mg/dl Negative [facility] Work Phone: Serum or plasma albumin leah urement (mass/volume)on 11-20-2021 Albumin [Mass/Vol] 3.8 g/dL 3.2-5.0 [facility] Work Phone: Serum or plasma albumin/glob ulin mass ratioon 11-20-2021 Albumin/Globulin [Mass ratio] 1.0 {ratio} 0.9-2.4 [facility] Work Phone: Serum or plasma calcium leah urement (mass/volume)on 11-20-2021 Calcium [Mass/Vol] 9.4 mg/dL 8.5-10.1 [facility] Work Phone: Serum or plasma creatinine m easurement (mass/volume)on 11-20-2021 Creatinine [Mass/Vol] 1.23 mg/dL 0.55-1.02 [facility] Work Phone: Comment on above: The validity of the calculated GFR & GFRAA in patients over 70 years has not been determined. Clinical correlation is essential. Serum or plasma urea nitroge n measurement (mass/volume)on 11-20-2021 Urea nitrogen [Mass/Vol] 22 mg/dL 7-18 [facility] Work Phone: Squamous epithelial cells de tection in urine sediment by light microscopyon 11-20-2021 Epithelial cells.squamous LM Ql (Urine sed) 0-5 SEEN /hpf 5-10 [facility] Work Phone: Thin prep Papanicolaou smear with manual screeningon 11-20-2021 Thin prep Papanicolaou smear with manual screening 12 U/L 15-37 [facility] Work Phone: Thin prep Papanicolaou smear with manual screening 5 5-15 [facility] Work Phone: Urine blood detectionon 10-30 RBC Ql (U) 10 /ul Negative [facility] Work Phone: RBC Ql (U) 0 SEEN /hpf 0-5 [facility] Work Phone: Urine clarityon 11-20-2021 Clarity (U) Sl. Cloudy Clear [facility] Work Phone: Urine color determinationon 11-20-2021 Color (U) Yellow Yellow [facility] Work Phone: Urine glucose detectionon Glucose Ql (U) Normal mg/dl Normal [facility] Work Phone: Urine leukocyte esterase det ection by dipstickon 11-20-2021 Leukocyte esterase Test strip Ql (U) 500 /ul Negative [facility] Work Phone: Urine pHon 11-20-2021 pH (U) 5.0 [pH] 5.0 - 8.0 [facility] Work Phone: Urine sediment bacteria coun t by microscopy (number/high power field)on 11-20-2021 Bacteria LM.HPF (Urine sed) [#/Area] 2 /[HPF] None Seen [facility] Work Phone: Urine specific gravity measu rementon 11-20-2021 Specific gravity (U) [Rel density] 1.015 1.002-1.030 [facility] Work Phone: Urobilinogen Auto test strip Ql (U)on 11-20-2021 Urobilinogen Ql (U) 1 mg/dl Normal [facility] Work Phone: Absolute lymphocyte counton 11-18-2021 Lymphocytes Auto (Unsp spec) [#/Vol] 3.14 10*3/uL 0.83-4.51 [facility] Work Phone: Basophil percentageon 2021 Basophil percentage 0-5 SEEN /hpf 0-5 [facility] Work Phone: Basophils/100 WBC (Bld) 0.3 % 0-1 [facility] Work Phone: Chloride [Moles/Vol] 107 mmol/L 98-107 [facility] Work Phone: Eosinophils/100 WBC (Bld) 1.4 % 0-5 [facility] Work Phone: Glucose [Mass/Vol] 109 mg/dL 74-106 [facility] Work Phone: Comment on above: Fasting Glucose resu lt from 100 to 125 mg/dL suggests IMPAIRED HOMEOSTASIS per A.D.A. criteria. Neutrophils (Bld) [#/Vol] 4.6 10*3/uL 2.0-7.7 [facility] Work Phone: Neutrophils/100 WBC (Bld) 53.7 % 47-70 [facility] Work Phone: Potassium [Moles/Vol] 4.3 mmol/L 3.5-5.1 [facility] Work Phone: Sodium [Moles/Vol] 138 mmol/L 136-145 [facility] Work Phone: WBC (Bld) [#/Vol] 8.6 10*3/uL 4.4-11.0 [facility] Work Phone: Bilirubin Test strip Ql (U)o n 11-18-2021 Bilirubin Ql (U) Negative Negative [facility] Work Phone: Blood erythrocytes count (nu mber/volume)on 11-18-2021 RBC (Bld) [#/Vol] 5.11 10*6[facility]L [facility].2[facility] Blood hemoglobin measurement (mass/volume)on 11-18-2021 Hemoglobin (Bld) [Mass/Vol] 15.7 g/dL 12.0-15.0 [facility] Work Phone: Blood lymphocytes/100 leukoc yteson 11-18-2021 Lymphocytes/100 WBC (Bld) 36.6 % 19-41 [facility] Work Phone: Blood monocytes/100 leukocyt eson 11-18-2021 Monocytes/100 WBC (Bld) 7.9 % 0-10 [facility] Work Phone: Blood platelet mean volumeon 11-18-2021 Platelet mean volume (Bld) [Entitic vol] 9.4 fL 6.2-12.0 [facility] Work Phone: Determination of erythrocyte mean corpuscular volume (MCV)on 11-18-2021 MCV (RBC) [Entitic vol] 92.4 fL 81-99 [facility] Work Phone: Hematocrit Auto (Bld) [Volum e fraction]on 11-18-2021 Hematocrit (Bld) [Volume fraction] 47.2 % 37-47 [facility] Work Phone: Ketones Test strip Ql (U)on 11-18-2021 Ketones Ql (U) Negative Negative [facility] Work Phone: Laboratory - Chemistry and C hemistry - challengeon 11-18-2021 CO2 [Moles/Vol] 24.0 mmol/L 21.0-32.0 [facility] Work Phone: Natriuretic peptide B (Bld) [Mass/Vol] 174.2 pg/mL 0-100 [facility] Work Phone: Urea nitrogen/Creatinine [Mass ratio] 23.0 mg/mg 10-20 [facility] Work Phone: Laboratory - Hematology and Cell countson 11-18-2021 Erythrocyte distribution width (RBC) [Entitic vol] 50.4 fL 35.1-43.9 [facility] Work Phone: Erythrocyte distribution width (RBC) [Ratio] 14.7 % 11.6-14.6 [facility] Work Phone: Immature granulocytes/100 WBC (Bld) 0.100 % 0.0-0.9 [facility] Work Phone: Comment on above: IG% - Immature Granu locytes (promyelocytes, myelocytes and metamyelocytes) > 1% indicates that a LEFT SHIFT is Present. MCH (RBC) [Entitic mass] 30.7 pg 27.0-32.0 [facility] Work Phone: Nucleated RBC/100 WBC (Bld) [Ratio] 0 % 0-5 [facility] Work Phone: MCHC Auto (RBC) [Mass/Vol]on 11-18-2021 MCHC (RBC) [Mass/Vol] 33.3 g/dL 32-36 [facility] Work Phone: Mucus LM Ql (Urine sed)on Mucus Ql (Urine sed) 0 SEEN /hpf [facility] Work Phone: Nitrite Test strip Ql (U)on 11-18-2021 Nitrite Ql (U) Negative Negative [facility] Work Phone: No Panel Informationon 11-18 Estimated Creatinine Clearance Calc 43.11 ml/min [facility] Work Phone: Estimated GFR (MDRD) Amer 54 mL/min >60 [facility] Work Phone: Comment on above: GFR Calc Estimated GFR (MDRD) Non-Af Amer 45 mL/min >60 [facility] Work Phone: Comment on above: Non- GFR Calc Troponin I High Sensitivity 15 pg/mL 3.0-54.0 [facility] Work Phone: Comment on above: Please Note: New Ying t Units and Gender Specific Reference Ranges. For more information see Policy Stat Procedure [place] High Sensitivity Troponin (TNIH) and attachments. Platelets bldon 11-18-2021 Platelets (Bld) [#/Vol] 233 10*3/uL 150-450 [facility] Work Phone: Protein Test strip Ql (U)on 11-18-2021 Protein Ql (U) Negative Negative [facility] Work Phone: Serum or plasma calcium leah urement (mass/volume)on 11-18-2021 Calcium [Mass/Vol] 9.5 mg/dL 8.5-10.1 [facility] Work Phone: Serum or plasma creatinine m easurement (mass/volume)on 11-18-2021 Creatinine [Mass/Vol] 1.26 mg/dL 0.55-1.02 [facility] Work Phone: Comment on above: The validity of the calculated GFR & GFRAA in patients over 70 years has not been determined. Clinical correlation is essential. Serum or plasma urea nitroge n measurement (mass/volume)on 11-18-2021 Urea nitrogen [Mass/Vol] 29 mg/dL 7-18 [facility] Work Phone: Squamous epithelial cells de tection in urine sediment by light microscopyon 11-18-2021 Epithelial cells.squamous LM Ql (Urine sed) 0-5 SEEN /hpf 5-10 [facility] Work Phone: Thin prep Papanicolaou smear with manual screeningon 11-18-2021 Thin prep Papanicolaou smear with manual screening 7 5-15 [facility] Work Phone: Urine blood detectionon - RBC Ql (U) 10 /ul Negative [facility] Work Phone: RBC Ql (U) 0 SEEN /hpf 0-5 [facility] Work Phone: Urine clarityon 11-18-2021 Clarity (U) Clear Clear [facility] Work Phone: Urine color determinationon 11-18-2021 Color (U) Yellow Yellow [facility] Work Phone: Urine glucose detectionon Glucose Ql (U) Normal mg/dl Normal [facility] Work Phone: Urine leukocyte esterase det ection by dipstickon 11-18-2021 Leukocyte esterase Test strip Ql (U) Negative Negative [facility] Work Phone: Urine pHon 11-18-2021 pH (U) 6.0 [pH] 5.0 - 8.0 [facility] Work Phone: Urine sediment bacteria coun t by microscopy (number/high power field)on 11-18-2021 Bacteria LM.HPF (Urine sed) [#/Area] 3 /[HPF] None Seen [facility] Work Phone: Urine specific gravity measu rementon 11-18-2021 Specific gravity (U) [Rel density] 1.010 1.002-1.030 [facility] Work Phone: Urobilinogen Auto test strip Ql (U)on 11-18-2021 Urobilinogen Ql (U) Normal mg/dl Normal [facility] Work Phone: Basophil percentageon 2021 Chloride [Moles/Vol] 106 mmol/L 98-107 [facility] Work Phone: Glucose [Mass/Vol] 120 mg/dL 74-106 [facility] Work Phone: Comment on above: Fasting Glucose resu lt from 100 to 125 mg/dL suggests IMPAIRED HOMEOSTASIS per A.D.A. criteria. Potassium [Moles/Vol] 4.8 mmol/L 3.5-5.1 [facility] Work Phone: Sodium [Moles/Vol] 140 mmol/L 136-145 [facility] Work Phone: Laboratory - Chemistry and C hemistry - challengeon 09-01-2021 CO2 [Moles/Vol] 27.0 mmol/L 21.0-32.0 [facility] Work Phone: Urea nitrogen/Creatinine [Mass ratio] 20.0 mg/mg 10-20 [facility] Work Phone: No Panel Informationon 09-01 Estimated GFR (MDRD) Amer 52 mL/min >60 [facility] Work Phone: Comment on above: GFR Calc Estimated GFR (MDRD) Non-Af Amer 43 mL/min >60 [facility] Work Phone: Comment on above: Non- GFR Calc Serum or plasma calcium leah urement (mass/volume)on 09-01-2021 Calcium [Mass/Vol] 9.0 mg/dL 8.5-10.1 [facility] Work Phone: Serum or plasma creatinine m easurement (mass/volume)on 09-01-2021 Creatinine [Mass/Vol] 1.30 mg/dL 0.55-1.02 [facility] Work Phone: Comment on above: The validity of the calculated GFR & GFRAA in patients over 70 years has not been determined. Clinical correlation is essential. Serum or plasma urea nitroge n measurement (mass/volume)on 09-01-2021 Urea nitrogen [Mass/Vol] 26 mg/dL 7-18 [facility] Work Phone: Thin prep Papanicolaou smear with manual screeningon 09-01-2021 Thin prep Papanicolaou smear with manual screening 7 5-15 [facility] Work Phone: Absolute lymphocyte counton 08-03-2021 Lymphocytes Auto (Unsp spec) [#/Vol] 3.20 10*3/uL 0.83-4.51 [facility] Work Phone: Basophil percentageon 2021 Basophils/100 WBC (Bld) 0.7 % 0-1 [facility] Work Phone: Chloride [Moles/Vol] 110 mmol/L 98-107 [facility] Work Phone: Eosinophils/100 WBC (Bld) 2.9 % 0-5 [facility] Work Phone: Glucose [Mass/Vol] 113 mg/dL 74-106 [facility] Work Phone: Comment on above: Fasting Glucose resu lt from 100 to 125 mg/dL suggests IMPAIRED HOMEOSTASIS per A.D.A. criteria. Neutrophils (Bld) [#/Vol] 5.8 10*3/uL 2.0-7.7 [facility] Work Phone: Neutrophils/100 WBC (Bld) 57.1 % 47-70 [facility] Work Phone: Potassium [Moles/Vol] 4.0 mmol/L 3.5-5.1 [facility] Work Phone: Sodium [Moles/Vol] 141 mmol/L 136-145 [facility] Work Phone: WBC (Bld) [#/Vol] 10.1 10*3/uL 4.4-11.0 [facility] Work [facility]: Blood erythrocytes count (nu mber/volume)on 08-03-2021 RBC (Bld) [#/Vol] 4.99 10*6/uL 4.2-5.4 [facility] Work Phone: Blood hemoglobin measurement (mass/volume)on 08-03-2021 Hemoglobin (Bld) [Mass/Vol] 14.6 g/dL 12.0-15.0 [facility] Work Phone: Blood lymphocytes/100 leukoc yteson 08-03-2021 Lymphocytes/100 WBC (Bld) 31.6 % 19-41 [facility] Work Phone: Blood monocytes/100 leukocyt eson 08-03-2021 Monocytes/100 WBC (Bld) 7.5 % 0-10 [facility] Work Phone: Blood platelet mean volumeon 08-03-2021 Platelet mean volume (Bld) [Entitic vol] 9.8 fL 6.2-12.0 [facility] Work Phone: Determination of erythrocyte mean corpuscular volume (MCV)on 08-03-2021 MCV (RBC) [Entitic vol] 88.6 fL 81-99 [facility] Work Phone: Hematocrit Auto (Bld) [Volum e fraction]on 08-03-2021 Hematocrit (Bld) [Volume fraction] 44.2 % 37-47 [facility] Work Phone: Laboratory - Chemistry and C hemistry - challengeon 08-03-2021 CO2 [Moles/Vol] 26.0 mmol/L 21.0-32.0 [facility] Work Phone: Urea nitrogen/Creatinine [Mass ratio] 25.0 mg/mg 10-20 [facility] Work Phone: Laboratory - Hematology and Cell countson 08-03-2021 Erythrocyte distribution width (RBC) [Entitic vol] 44.2 fL 35.1-43.9 [facility] Work Phone: Erythrocyte distribution width (RBC) [Ratio] 13.7 % 11.6-14.6 [facility] Work Phone: Immature granulocytes/100 WBC (Bld) 0.200 % 0.0-0.9 [facility] Work Phone: Comment on above: IG% - Immature Granu locytes (promyelocytes, myelocytes and metamyelocytes) > 1% indicates that a LEFT SHIFT is Present. MCH (RBC) [Entitic mass] 29.3 pg 27.0-32.0 [facility] Work Phone: Nucleated RBC/100 WBC (Bld) [Ratio] 0 % 0-5 [facility] Work Phone: MCHC Auto (RBC) [Mass/Vol]on 08-03-2021 MCHC (RBC) [Mass/Vol] 33.0 g/dL 32-36 [facility] Work Phone: No Panel Informationon 08-03 Estimated Creatinine Clearance Calc 51.05 ml/min [facility] Work Phone: Estimated GFR (MDRD) Amer 68 mL/min >60 [facility] Work Phone: Comment on above: GFR Calc Estimated GFR (MDRD) Non-Af Amer 56 mL/min >60 [facility] Work Phone: Comment on above: Non- GFR Calc Platelets bldon 08-03-2021 Platelets (Bld) [#/Vol] 202 10*3/uL 150-450 [facility] Work Phone: Serum or plasma calcium leah urement (mass/volume)on 08-03-2021 Calcium [Mass/Vol] 8.5 mg/dL 8.5-10.1 [facility] Work Phone: Serum or plasma creatinine m easurement (mass/volume)on 08-03-2021 Creatinine [Mass/Vol] 1.04 mg/dL 0.55-1.02 [facility] Work Phone: Comment on above: The validity of the calculated GFR & GFRAA in patients over 70 years has not been determined. Clinical correlation is essential. Serum or plasma urea nitroge n measurement (mass/volume)on 08-03-2021 Urea nitrogen [Mass/Vol] 26 mg/dL 7-18 [facility] Work Phone: Thin prep Papanicolaou smear with manual screeningon 08-03-2021 Thin prep Papanicolaou smear with manual screening 5 5-15 [facility] Work Phone: Basophil percentageon 2021 Cholesterol [Mass/Vol] 143 mg/dL <200 [facility] Work Phone: Comment on above: <200 mg/dL Desirable 200-240 mg/dL Borderline >240 mg/dL High Risk Triglyceride [Mass/Vol] 147 mg/dL <199 [facility] Work Phone: Comment on above: The drugs N-Acetylcy steine and Metamizole may falsely depress this assay.Serum Triglycerides Reference Interval Normal <150 mg/dL Borderline high 150 - 199 mg/dL High 200 - 499 mg/dL Very High > or = 500 mg/dL No Panel Informationon 08-02 Thyroid Stimulating Hormone (TSH) 1.62 uIU/mL 0.358-3.74 [facility] Work Phone: Serum or plasma cholesterol in HDL measurement (mass/volume)on 08-02-2021 Cholesterol in HDL [Mass/Vol] 27 mg/dL >40 [facility] [facility] Work Phone: Comment on above: The drugs N-Acetylcy steine and Metamizole may falsely depress this assay. Reference Range HDL <40 mg/dL Low HDL Cholesterol HDL >or= 60 mg/dL High HDL Cholesterol Serum or plasma cholesterol in VLDL measurement (mass/volume)on 08-02-2021 Cholesterol in VLDL [Mass/Vol] 29 mg/dL 5-40 [facility] Work Phone: Serum or plasma low density lipoprotein (LDL) cholesterol measurement (mass/volume)on 08-02-2021 Cholesterol in LDL [Mass/Vol] 87 mg/dL 0-130 [facility] Work Phone: Basophil percentageon 2021 Bilirubin [Mass/Vol] 0.70 mg/dL 0.20-1.00 [facility] Work Phone: Comment on above: For patients on eltr ombopag therapy, use of Dimension [place] TBIL is not recommended. Protein [Mass/Vol] 7.9 g/dL 6.4-8.2 [facility] Work Phone: Laboratory - Chemistry and C hemistry - challengeon 08-01-2021 ALP [Catalytic activity/Vol] 76 U/L 45-117 [facility] Work Phone: ALT [Catalytic activity/Vol] 27 U/L 13-56 [facility] Work Phone: Globulin (S) [Mass/Vol] 4.1 g/dL 2.2-4.2 [facility] Work Phone: Magnesium [Mass/Vol] 1.8 mg/dL 1.6-2.6 [facility] Work Phone: Natriuretic peptide B (Bld) [Mass/Vol] 613.7 pg/mL 0-100 [facility] Work Phone: No Panel Informationon 08-01 Troponin I High Sensitivity 94 pg/mL 3.0-54.0 [facility] Work Phone: Comment on above: Please Note: [place] t Units and Gender Specific Reference Ranges. For more information see Policy Stat Procedure [place] High Sensitivity Troponin (TNIH) and attachments. Serum or plasma albumin leah urement (mass/volume)on 08-01-2021 Albumin [Mass/Vol] 3.8 g/dL 3.2-5.0 [facility] Work Phone: Serum or plasma albumin/glob ulin mass ratioon 08-01-2021 Albumin/Globulin [Mass ratio] 0.9 {ratio} 0.9-2.4 [facility] Work Phone: Thin prep Papanicolaou smear with manual screeningon 08-01-2021 Thin prep Papanicolaou smear with manual screening 17 U/L 15-37 [facility] Work Phone: HOSPon 06-04-2017 [facility] JEAN-PAUL MCPHERSON ([id number]) 1955 [facility] Time Provider Department06/04/17 ALBERTA GOMEZ During your visit today, we recorded the following information about you:Alberta Gomez MD 06/07/2017 11:50 AM SignedMessage from [facility]. [facility]:Jaren Medina MA [facility] Jun 07, 2017 10:05 AM----- Message ----- From: Beulah Mcpherson Sent: 06/04/2017 10:36 AM To: [facility] Jhon Renew RxSubject: Medication Renewal RequestOriginal authorizing provider: Eligio Sanchez would like a refill of the following medications:amitript yline (ELAVIL) 75 mg tablet [Alberta Gomez MD]ibuprofen (MOTRIN) 800 mg tablet [Alberta Gomez MD]Preferred pharmacy: [place] [address] [address] [phone] [id number]:Clement Gomez MD 06/07/2017 11:52 AM SignedRx reorderedJaren Medina MA 06/11/2017 1:33 PM SignedName: patient requesting medications refill(s).Patient's : 4Allergies: Zosyn [Piperacillin-Tazoba ctam] (home) [phone] (cell)Last appointment : Visit date not foundThe patients preferred pharmacy has been captured for this encounter.Patient phones requesting refills as follows:Pending Prescriptions Disp Refills AMITRIPTYLINE 75 MG TABLET 30 tablet 2 Sig: Take 1 tablet by mouth daily at bedtime. FADIA: No IBUPROFEN 800 MG TABLET 60 tablet 2 Sig: Take 1 tablet by mouth every 8 hours as needed (for pain.). FADIA: NoSigned Prescriptions Disp Refills amitriptyline (ELAVIL) 75 mg tablet 30 tablet 2 Sig: Take 1 tablet by mouth daily at bedtime. FADIA: No Authorizing Provider: ALBERTA GOMEZ ibuprofen (MOTRIN) 800 mg tablet 60 tablet 2 Sig: Take 1 tablet by mouth every 8 hours as needed (for pain.). FADIA: No Authorizing Provider: ALBERTA GOMEZ review and advise.Jaren Medina MA 06/11/2017 1:33 PM SignedAddended by: JAREN MEDINA MA on: 06/11/2017 01:33 PM Modules accepted: Jose Gomez MD 06/13/2017 9:15 AM SignedI just refilled these Rx several days ago, check in medications section ofchart to Judson Medina MA 06/14/2017 11:24 AM SignedLm for pt to return call.Jaren Medina MA06/14/2017 11:24:56Pina Lin CMA 06/14/2017 1:27 PM SignedPt called back on 06/14/2017 13:25:43 and I just told her that Dr. Gomezfilled both medications on June 07, 2017. Pt notified and understood.Pina Lin CMAAllergies As of Date: 06/04/2017 Noted Allergy ReactionZOSYN (PIPERACILLIN-TAZOBA CTAM) 09/26/2013 2 - Rash 9 - ItchingDate Reviewed: 02/13/2017Reviewed by: Taylor Veloz LPN - Fully AssessedReason for Visit: Refill Request [94]Order(s):amitrip tyline (ELAVIL) 75 mg tabletTake 1 tablet by mouth daily at bedtime.Disp: 30 tabletRfl: 2 ibuprofen (MOTRIN) 800 mg tabletTake 1 tablet by mouth every 8 hours as needed (for pain.).Disp: 60 tabletRfl: 2Prescriptions as of 06/04/2017 Sig: AMITRIPTYLINE 75 MG TABLET Take 1 tablet by mouth daily * IBUPROFEN 800 MG TABLET Take 1 tablet by mouth every *X AMITRIPTYLINE 75 MG TABLET Take 1 tablet by mouth daily *X IBUPROFEN 800 MG TABLET Take 1 tablet by mouth every *Problem List As Of Date 06/04/2017 Noted Resolved SUMMARY [V999.95] INVALID FOR*07/10/2016 Priority: Very Severe More... Psoas abscess, right (HCC) [K68.12] INVALID FOR*07/10/2016 Priority: A More... Anemia [D64.9] INVALID FOR* Priority: C More... Pyelonephritis [N12] INVALID FOR*07/10/2016 Priority: B More... DVT prophylaxis [EOE5172] INVALID FOR*07/10/2016 More... Nephrolithiasis [N20.0] INVALID FOR*07/10/2016 Obesity (BMI 30-39.9) [E66.9] INVALID FOR* Lumbar stenosis with neurogenic claudication [M*INVALID FOR*07/10/2016 Priority: A Incidental durotomy [G97.41] INVALID FOR*07/10/2016 Priority: B Epidural hematoma (HCC) [S06.4X9A] INVALID FOR*07/10/2016 Priority: C Hip arthritis [M16.10] INVALID FOR* Right foot drop [M21.371] INVALID FOR* Low back pain with right-sided sciatica [M54.41]INVALID FOR* Chronic right-sided low back pain with right-si*INVALID FOR* Sweating abnormality [L74.9] INVALID FOR* Mixed hyperlipidemia [E78.2] INVALID FOR* Elevated serum creatinine [R79.89] INVALID FOR*Prescriptions ordered this encounter Disp Refills Start End AMITRIPTYLINE 75 MG TABLET 30 t* 2 06/07/2017 Route: ORAL Sig: Take 1 tablet by mouth daily at bedtime. IBUPROFEN 800 MG TABLET 60 t* 2 06/07/2017 Route: ORAL Sig: Take 1 tablet by mouth every 8 hours as needed (for pain.).Medications Discontinued During This Encounter amitriptyline (ELAVIL) 75 mg tablet 30 t* 2 06/07/2017 06/07/2017 Route: ORAL Sig: Take 1 tablet by mouth daily at bedtime. Disc: Reason for discontinue is not on file. ibuprofen (MOTRIN) 800 mg tablet 60 t* 2 06/07/2017 06/07/2017 Route: ORAL Sig: Take 1 tablet by mouth every 8 hours as needed (for pain.). Disc: Reason for discontinue is not on file. Status:Closed by ALBERTA GOMEZ MD on 06/07/17 [facility] Culture, urine Bacteria identified Cx Nom (U) Escherichia coli#2 [facility] Work Phone: Bacteria identified Cx Nom (U) Escherichia coli [facility] Work Phone: SARS-CoV-2 (COVID-19) Ag IA. rapid Ql (Resp) SARS-CoV-2 Antigen (Rapid) SARS-CoV-2 (COVID 19) [facility] Work Phone: Vital Signs Date Time Vital Sign Value Performing Clinician Nick rutledge 09-08-2023 14:06-0400 Body temperature 97.4 [degF] Dr. Yesi Clinton Work Phone: [facility] 09-08-2023 14:06-0400 Diastolic blood pressure 44 mm[Hg] Dr. Yesi Clinton Work Phone: [facility] 09-08-2023 14:06-0400 Heart rate 77 /min Dr. Yesi Clinton Work Phone: [facility] 09-08-2023 14:06-0400 Respiratory rate 18 /min Dr. Yesi Clinton Work Phone: [facility] 09-08-2023 14:06-0400 SaO2% (BldA) [Mass fraction] 97 % Dr. Yesi Clinton Work Phone: [facility] 09-08-2023 14:06-0400 Systolic blood pressure 114 mm[Hg] Dr. Yesi Clinton Work Phone: [facility] 09-08-2023 10:10-0400 Body height 170.[address] Yesi Clinton Work Phone: [facility] 09-08-2023 10:10-0400 Body weight 110.[address] Yesi Clinton Work Phone: [facility] 09-08-2023 05:15-0400 Body mass index (BMI) [Ratio] 38.2 kg/m2 Dr. Yesi Clinton Work Phone: [facility] 09-07-2023 11:34-0400 Inhaled oxygen flow rate 2 L/min Dr. Yesi Clinton Work Phone: [facility] 09-01-2023 09:22-0400 Body mass index (BMI) [Ratio] 36.8 kg/m2 Dr. Yesi Clinton Work Phone: [facility] 09-01-2023 09:22-0400 Body weight 106.[address] Yesi Clinton Work Phone: [facility] 09-01-2023 09:22-0400 Diastolic blood pressure 75 mm[Hg] Dr. Yesi Clinton Work Phone: [facility] 09-01-2023 09:22-0400 Heart rate 58 /min Dr. Yesi Clinton Work Phone: [facility] 09-01-2023 09:22-0400 Respiratory rate 18 /min Dr. Yesi Clinton Work Phone: [facility] 09-01-2023 09:22-0400 Systolic blood pressure 121 mm[Hg] Dr. Yesi Clinton Work Phone: [facility] 08-13-2023 15:07-0400 Body height 170.2 cm Thor Bain FUNDRAISING DIRECTOR-SHOWROOM EXECUTIVE DIRECTOR Work Phone: [facility] 08-13-2023 15:07-0400 Body mass index (BMI) [Ratio] 37.73 kg/m2 Thorradha Sandovalefe FUNDRAISING DIRECTOR-SHOWROOM EXECUTIVE DIRECTOR Work Phone: [facility] 08-13-2023 15:07-0400 Body weight 109.3 kg Thorradha Sandovalefe FUNDRAISING DIRECTOR-SHOWROOM EXECUTIVE DIRECTOR Work Phone: [facility] 08-13-2023 15:07-0400 Diastolic blood pressure 70 mm[Hg] Thor Kassy FUNDRAISING DIRECTOR-SHOWROOM EXECUTIVE DIRECTOR Work Phone: [facility] 08-13-2023 15:07-0400 Systolic blood pressure 160 mm[Hg] Thorradha Vaughne FUNDRAISING DIRECTOR-SHOWROOM EXECUTIVE DIRECTOR Work Phone: [facility] 07-21-2023 15:03-0500 Body temperature 98.4 [degF] Dr. Yesi Clinton Work Phone: [facility] 07-21-2023 15:03-0500 Body weight 109.[address] Yesi Clinton Work Phone: [facility] 07-21-2023 15:03-0500 Diastolic blood pressure 60 mm[Hg] Dr. Yesi Clinton Work Phone: [facility] 07-21-2023 15:03-0500 Heart rate 64 /min Dr. Yesi Clinton Work Phone: [facility] 07-21-2023 15:03-0500 Respiratory rate 14 /min Dr. Yesi Clinton Work Phone: [facility] 07-21-2023 15:03-0500 SaO2% (BldA) [Mass fraction] 96 % Dr. Yesi Clinton Work Phone: [facility] 07-21-2023 15:03-0500 Systolic blood pressure 124 mm[Hg] Dr. Yesi Clinton Work Phone: [facility] 05-17-2023 10:39-0500 Body height 170.[address] Yesi Clinton Work Phone: [facility] 05-17-2023 10:39-0500 Body mass index (BMI) [Ratio] 37.7 kg/m2 Dr. Yesi Clinton Work Phone: [facility] 05-17-2023 10:39-0500 Body temperature 98.3 [degF] Dr. Yesi Clinton Work Phone: [facility] 05-17-2023 10:39-0500 Body weight 109.[address] Yesi Clinton Work Phone: [facility] 05-17-2023 10:39-0500 Diastolic blood pressure 90 mm[Hg] Dr. Yesi Clinton Work Phone: [facility] 05-17-2023 10:39-0500 Heart rate 70 /min Dr. Yesi Clinton Work Phone: [facility] 05-17-2023 10:39-0500 Respiratory rate 16 /min Dr. Yesi Clinton Work Phone: [facility] 05-17-2023 10:39-0500 SaO2% (BldA) [Mass fraction] 98 % Dr. Yesi Clinton Work Phone: [facility] 05-17-2023 10:39-0500 Systolic blood pressure 138 mm[Hg] Dr. Yesi Clinton Work Phone: [facility] 05-04-2023 11:15-0500 Body height 170.[address] Yesi Clinton Work Phone: [facility] 05-04-2023 11:15-0500 Body mass index (BMI) [Ratio] 37.7 kg/m2 Dr. Yesi Clinton Work Phone: [facility] 05-04-2023 11:15-0500 Body weight 109.[address] Yesi Clinton Work Phone: [facility] 04-07-2023 15:06-0500 Body temperature 98.4 [degF] Dr. Yesi Clinton Work Phone: [facility] 04-07-2023 15:06-0500 Body weight 109.[address] Yesi Clinton Work Phone: [facility] 04-07-2023 15:06-0500 Diastolic blood pressure 64 mm[Hg] Dr. Yesi Clinton Work Phone: [facility] 04-07-2023 15:06-0500 Heart rate 66 /min Dr. Yesi Clinton Work Phone: [facility] 04-07-2023 15:06-0500 Respiratory rate 16 /min Dr. Yesi Clinton Work Phone: [facility] 04-07-2023 15:06-0500 SaO2% (BldA) [Mass fraction] 97 % Dr. Yesi Clinton Work Phone: [facility] 04-07-2023 15:06-0500 Systolic blood pressure 121 mm[Hg] Dr. Yesi Clinton Work Phone: [facility] 04-05-2023 10:06-0500 Body height 170.[address] Yesi Clinton Work Phone: [facility] 04-05-2023 10:06-0500 Body mass index (BMI) [Ratio] 37.7 kg/m2 Dr. Yesi Clinton Work Phone: [facility] 04-05-2023 10:06-0500 Body temperature 97 [degF] Dr. Yesi Clinton Work Phone: [facility] 04-05-2023 10:06-0500 Body weight 109.[address] Yesi Clinton Work Phone: [facility] 04-05-2023 10:06-0500 Diastolic blood pressure 70 mm[Hg] Dr. Yesi Clinton Work Phone: [facility] 04-05-2023 10:06-0500 Heart rate 56 /min Dr. Yesi Clinton Work Phone: [facility] 04-05-2023 10:06-0500 Respiratory rate 18 /min Dr. Yesi Clinton Work Phone: [facility] 04-05-2023 10:06-0500 Systolic blood pressure 124 mm[Hg] Dr. Yesi Clinton Work Phone: [facility] 03-30-2023 19:00-0400 Diastolic blood pressure 58 mm[Hg] Mansi Comer MD Work Phone: [facility] 03-30-2023 19:00-0400 Heart rate 86 /min Mansi Comer MD Work Phone: [facility] 03-30-2023 19:00-0400 Respiratory rate 16 /min Mansi Comer MD Work Phone: [facility] 03-30-2023 19:00-0400 SaO2% (BldA) [Mass fraction] 99 % Mansi Comer MD Work Phone: [facility] 03-30-2023 19:00-0400 Systolic blood pressure 125 mm[Hg] Mansi Comer MD Work Phone: [facility] 03-30-2023 15:22-0400 Body temperature 97.5 [degF] Mansi Comer MD Work Phone: [facility] 03-30-2023 08:30-0400 Body height 170.2 cm Mansi Comer MD Work Phone: [facility] 03-30-2023 08:30-0400 Body mass index (BMI) [Ratio] 36.96 kg/m2 Mansi Comer MD Work Phone: [facility] 03-30-2023 08:30-0400 Body weight 107.05 kg Mansi Comer MD Work Phone: [facility] 03-26-2023 08:50-0400 Body height 170.[address] Yesi Clinton Work Phone: [facility] 03-26-2023 08:50-0400 Body mass index (BMI) [Ratio] 37.9 kg/m2 Dr. Yesi Clinton Work Phone: [facility] 03-26-2023 08:50-0400 Body temperature 98 [degF] Dr. Yesi Clinton Work Phone: [facility] 03-26-2023 08:50-0400 Body weight 109.[address] Yesi Clinton Work Phone: [facility] 03-26-2023 08:50-0400 Diastolic blood pressure 76 mm[Hg] Dr. Yesi Clinton Work Phone: [facility] 03-26-2023 08:50-0400 Heart rate 85 /min Dr. Yesi Clinton Work Phone: [facility] 03-26-2023 08:50-0400 Respiratory rate 16 /min Dr. Yesi Clinton Work Phone: [facility] 03-26-2023 08:50-0400 SaO2% (BldA) [Mass fraction] 97 % Dr. Yesi Clinton Work Phone: [facility] 03-26-2023 08:50-0400 Systolic blood pressure 118 mm[Hg] Dr. Yesi Clinton Work Phone: [facility] 03-24-2023 15:01-0400 Body mass index (BMI) [Ratio] 36.9 kg/m2 Dr. Yesi Clinton Work Phone: [facility] 03-24-2023 15:01-0400 Body weight 107.[address] Yesi Clinton Work Phone: [facility] 03-24-2023 15:01-0400 Diastolic blood pressure 74 mm[Hg] Dr. Yesi Clinton Work Phone: [facility] 03-24-2023 15:01-0400 Heart rate 86 /min Dr. Yesi Clinton Work Phone: [facility] 03-24-2023 15:01-0400 Respiratory rate 16 /min Dr. Yesi Clinton Work Phone: [facility] 03-24-2023 15:01-0400 SaO2% (BldA) [Mass fraction] 98 % Dr. Yesi Clinton Work Phone: [facility] 03-24-2023 15:01-0400 Systolic blood pressure 119 mm[Hg] Dr. Yesi Clinton Work Phone: [facility] 03-01-2023 09:28-0400 Body height 171.[address] Yesi Clintno Work Phone: [facility] 03-01-2023 09:28-0400 Body mass index (BMI) [Ratio] 36.8 kg/m2 Dr. Yesi Clinton Work Phone: [facility] 03-01-2023 09:28-0400 Body weight 108.[address] Yesi Clinton Work Phone: [facility] 03-01-2023 09:28-0400 Diastolic blood pressure 73 mm[Hg] Dr. Yesi Clinton Work Phone: [facility] 03-01-2023 09:28-0400 Heart rate 77 /min Dr. Yesi Clinton Work Phone: [facility] 03-01-2023 09:28-0400 Respiratory rate 18 /min Dr. Yesi Clinton Work Phone: [facility] 03-01-2023 09:28-0400 Systolic blood pressure 119 mm[Hg] Dr. Yesi Clinton Work Phone: [facility] 02-25-2023 19:20-0400 Body height 170.[address] Yesi Clinton Work Phone: [facility] 02-25-2023 18:01-0400 Heart rate 89 /min Dr. Yesi Clinton Work Phone: [facility] 02-25-2023 18:01-0400 Respiratory rate 17 /min Dr. Yesi Clinton Work Phone: [facility] 02-25-2023 18:01-0400 SaO2% (BldA) [Mass fraction] 97 % Dr. Yesi Clinton Work Phone: [facility] 02-25-2023 15:51-0400 Body temperature 97.3 [degF] Dr. Yesi Clinton Work Phone: [facility] 02-25-2023 15:51-0400 Diastolic blood pressure 77 mm[Hg] Dr. Yesi Clinton Work Phone: [facility] 02-25-2023 15:51-0400 Systolic blood pressure 136 mm[Hg] Dr. Yesi Clinton Work Phone: [facility] 11-30-2022 09:25-0400 Body mass index (BMI) [Ratio] 41 kg/m2 Dr. Yesi Clinton Work Phone: [facility] 11-30-2022 09:25-0400 Body weight 108.[address] Yesi Clinton Work Phone: [facility] 11-30-2022 09:25-0400 Diastolic blood pressure 79 mm[Hg] Dr. Yesi Clinton Work Phone: [facility] 11-30-2022 09:25-0400 Heart rate 84 /min Dr. Yesi Clinton Work Phone: [facility] 11-30-2022 09:25-0400 Respiratory rate 18 /min Dr. Yesi Clinton Work Phone: [facility] 11-30-2022 09:25-0400 Systolic blood pressure 139 mm[Hg] Dr. Yesi Clinton Work Phone: [facility] 11-19-2022 14:11-0400 Body mass index (BMI) [Ratio] 40.1 kg/m2 Dr. Yesi Clinton Work Phone: [facility] 11-19-2022 14:11-0400 Body temperature 98.4 [degF] Dr. Yesi Clinton Work Phone: [facility] 11-19-2022 14:11-0400 Body weight 106.[address] Yesi Clinton Work Phone: [facility] 11-19-2022 14:11-0400 Diastolic blood pressure 74 mm[Hg] Dr. Yesi Clinton Work Phone: [facility] 11-19-2022 14:11-0400 Heart rate 71 /min Dr. Yesi Clinton Work Phone: [facility] 11-19-2022 14:11-0400 Respiratory rate 12 /min Dr. Yesi Clinton Work Phone: [facility] 11-19-2022 14:11-0400 SaO2% (BldA) [Mass fraction] 97 % Dr. Yesi Clinton Work Phone: [facility] 11-19-2022 14:11-0400 Systolic blood pressure 132 mm[Hg] Dr. Yesi Clinton Work Phone: [facility] 11-08-2022 17:36-0400 Diastolic blood pressure 69 mm[Hg] Dr. Yesi Clinton Work Phone: [facility] 11-08-2022 17:36-0400 Heart rate 79 /min Dr. Yesi Clinton Work Phone: [facility] 11-08-2022 17:36-0400 Respiratory rate 18 /min Dr. Yesi Clinton Work Phone: [facility] 11-08-2022 17:36-0400 SaO2% (BldA) [Mass fraction] 100 % Dr. Yesi Clinton Work Phone: [facility] 11-08-2022 17:36-0400 Systolic blood pressure 113 mm[Hg] Dr. Yesi Clinton Work Phone: [facility] 11-08-2022 16:15-0400 Body mass index (BMI) [Ratio] 34.5 kg/m2 Dr. Yesi Clinton Work Phone: [facility] 11-08-2022 16:15-0400 Body weight 99.[address] Yesi Clinton Work Phone: [facility] 11-08-2022 16:01-0400 Body temperature 97.9 [degF] Dr. Yesi Clinton Work Phone: [facility] 10-27-2022 10:33-0400 Body height 170.[address] Yesi Clinton Work Phone: [facility] 10-27-2022 10:33-0400 Body weight 102.[address] Yesi Clinton Work Phone: [facility] 10-23-2022 10:01-0400 Body mass index (BMI) [Ratio] 35.2 kg/m2 Dr. Yesi Clinton Work Phone: [facility] 09-17-2022 10:58-0400 Body height 170.[address] Yesi Clinton Work Phone: [facility] 09-17-2022 10:58-0400 Diastolic blood pressure 70 mm[Hg] Dr. Yesi Clinton Work Phone: [facility] 09-17-2022 10:58-0400 Systolic blood pressure 140 mm[Hg] Dr. Yesi Clinton Work Phone: [facility] 09-17-2022 10:58-0400 Body mass index (BMI) [Ratio] 35.2 kg/m2 Dr. Yesi Clinton Work Phone: [facility] 09-17-2022 10:58-0400 Body weight 102.[address] Yesi Clinton Work Phone: [facility] 09-17-2022 10:58-0400 Heart rate 68 /min Dr. Yesi Clinton Work Phone: [facility] 09-17-2022 10:58-0400 Respiratory rate 18 /min Dr. Yesi Clinton Work Phone: [facility] 09-17-2022 10:58-0400 SaO2% (BldA) [Mass fraction] 98 % Dr. Yesi Clinton Work Phone: [facility] 09-16-2022 20:17-0400 Diastolic blood pressure 65 mm[Hg] Dr. Yesi Clinton Work Phone: [facility] 09-16-2022 20:17-0400 Heart rate 63 /min Dr. Yesi Clinton Work Phone: [facility] 09-16-2022 20:17-0400 Respiratory rate 18 /min Dr. Yesi Clinton Work Phone: [facility] 09-16-2022 20:17-0400 SaO2% (BldA) [Mass fraction] 100 % Dr. Yesi Clinton Work Phone: [facility] 09-16-2022 20:17-0400 Systolic blood pressure 136 mm[Hg] Dr. Yesi Clinton Work Phone: [facility] 09-16-2022 16:09-0400 Body mass index (BMI) [Ratio] 35 kg/m2 Dr. Yesi Clinton Work Phone: [facility] 09-16-2022 16:09-0400 Body temperature 98.3 [degF] Dr. Yesi Clinton Work Phone: [facility] 09-16-2022 16:09-0400 Body weight 101.[address] Yesi Clinton Work Phone: [facility] 06-09-2022 06:08-0500 Body mass index (BMI) [Ratio] 35 kg/m2 Dr. Yesi Clinton Work Phone: [facility] 06-09-2022 06:08-0500 Body temperature 98.2 [degF] Dr. Yesi Clinton Work Phone: [facility] 06-09-2022 06:08-0500 Body weight 101.[address] Yesi Clinton Work Phone: [facility] 06-09-2022 06:08-0500 Diastolic blood pressure 64 mm[Hg] Dr. Yesi Clinton Work Phone: [facility] 06-09-2022 06:08-0500 Heart rate 64 /min Dr. Yesi Clinton Work Phone: [facility] 06-09-2022 06:08-0500 Respiratory rate 18 /min Dr. Yesi Clinton Work Phone: [facility] 06-09-2022 06:08-0500 SaO2% (BldA) [Mass fraction] 96 % Dr. Yesi Clinton Work Phone: [facility] 06-09-2022 06:08-0500 Systolic blood pressure 140 mm[Hg] Dr. Yesi Clinton Work Phone: [facility] 04-04-2022 12:44-0400 Diastolic blood pressure 53 mm[Hg] Dr. Yesi Clinton Work Phone: [facility] Work Phone: 04-04-2022 12:44-0400 Heart rate 58 /min Dr. Yesi Clinton Work Phone: [facility] [facility] Work Phone: 04-04-2022 12:44-0400 Respiratory rate 18 /min Dr. Yesi Clinton Work Phone: [facility] Work Phone: 04-04-2022 12:44-0400 SaO2% (BldA) [Mass fraction] 98 % Dr. Yesi Clinton Work Phone: [facility] Work Phone: 04-04-2022 12:44-0400 Systolic blood pressure 130 mm[Hg] Dr. Yesi Clinton Work Phone: [facility] Work Phone: 04-04-2022 11:06-0400 Body height 170.[address] Yesi Clinton Work Phone: [facility] Work Phone: 04-04-2022 11:06-0400 Body mass index (BMI) [Ratio] 35.2 kg/m2 Dr. Yesi Clinton Work Phone: [facility] Work Phone: 04-04-2022 11:06-0400 Body temperature 97.8 [degF] Dr. Yesi Clinton Work Phone: [facility] Work Phone: 04-04-2022 11:06-0400 Body weight [address] Yesi Clinton Work Phone: [facility] Work Phone: 03-18-2022 08:57-0400 Body height 170.[address] eYsi Clinton Work Phone: [facility] Work Phone: 03-18-2022 08:57-0400 Body mass index (BMI) [Ratio] 35.5 kg/m2 Dr. Yesi Clinton Work Phone: [facility] Work Phone: 03-18-2022 08:57-0400 Body weight 102.[address] Yesi Clinton Work Phone: [facility] Work Phone: 03-18-2022 08:57-0400 Diastolic blood pressure 70 mm[Hg] Dr. Yesi Clinton Work Phone: [facility] Work Phone: 03-18-2022 08:57-0400 Heart rate 61 /min Dr. Yesi Clinton Work Phone: [facility] Work Phone: 03-18-2022 08:57-0400 Respiratory rate 16 /min Dr. Yesi Clinton Work Phone: [facility] Work Phone: 03-18-2022 08:57-0400 Systolic blood pressure 126 mm[Hg] Dr. Yesi Clinton Work Phone: [facility] Work Phone: 03-05-2022 14:02-0400 Body mass index (BMI) [Ratio] 35.6 kg/m2 Dr. Yesi Clinton Work Phone: [facility] Work Phone: 03-05-2022 14:02-0400 Body temperature 97.3 [degF] Dr. Yesi Clinton Work Phone: [facility] Work Phone: 03-05-2022 14:02-0400 Body weight 103.[address] Yesi Clinton Work Phone: [facility] Work Phone: 03-05-2022 14:02-0400 Diastolic blood pressure 80 mm[Hg] Dr. Yesi Clinton Work Phone: [facility] Work Phone: 03-05-2022 14:02-0400 Heart rate 61 /min Dr. Yesi Clinton Work Phone: [facility] Work Phone: 03-05-2022 14:02-0400 Respiratory rate 18 /min Dr. Yesi Clinton Work Phone: [facility] Work Phone: 03-05-2022 14:02-0400 SaO2% (BldA) [Mass fraction] 98 % Dr. Yesi Clinton Work Phone: [facility] Work Phone: 03-05-2022 14:02-0400 Systolic blood pressure 145 mm[Hg] Dr. Yesi Clinton Work Phone: [facility] Work Phone: 02-11-2022 13:17-0400 Diastolic blood pressure 57 mm[Hg] Dr. Yesi Clinton Work Phone: [facility] Work Phone: 02-11-2022 13:17-0400 Heart rate 72 /min Dr. Yesi Clinton Work Phone: [facility] Work Phone: 02-11-2022 13:17-0400 Respiratory rate 15 /min Dr. Yesi Clinton Work Phone: [facility] Work Phone: 02-11-2022 13:17-0400 SaO2% (BldA) [Mass fraction] 97 % Dr. Yesi Clinton Work Phone: [facility] Work Phone: 02-11-2022 13:17-0400 Systolic blood pressure 107 mm[Hg] Dr. Yesi Clinton Work Phone: [facility] Work Phone: 02-11-2022 10:49-0400 Inhaled oxygen flow rate 12 L/min Dr. Yesi Clinton Work Phone: [facility] Work Phone: 02-11-2022 10:00-0400 Body height 170.[address] Yesi Clinton Work Phone: [facility] Work Phone: 02-11-2022 10:00-0400 Body mass index (BMI) [Ratio] 35.5 kg/m2 Dr. Yesi Clinton Work Phone: [facility] Work Phone: 02-11-2022 10:00-0400 Body temperature 98.2 [degF] Dr. Yesi Clinton Work Phone: [facility] Work Phone: 02-11-2022 10:00-0400 Body weight 102.[address] Yesi Clinton Work Phone: [facility] Work Phone: 02-03-2022 08:54-0400 Body mass index (BMI) [Ratio] 35.6 kg/m2 Dr. Yesi Clinton Work Phone: [facility] Work Phone: 02-03-2022 08:54-0400 Body weight 103.[address] Yesi Clinton Work Phone: [facility] Work Phone: 02-03-2022 08:54-0400 Diastolic blood pressure 63 mm[Hg] Dr. Yesi Clinton Work Phone: [facility] Work Phone: 02-03-2022 08:54-0400 Heart rate 72 /min Dr. Yesi Clinton Work Phone: [facility] Work Phone: 02-03-2022 08:54-0400 Respiratory rate 16 /min Dr. Yesi Clinton Work Phone: [facility] Work Phone: 02-03-2022 08:54-0400 Systolic blood pressure 99 mm[Hg] Dr. Yesi Clinton Work Phone: [facility] Work Phone: 01-08-2022 10:22-0400 Body weight 105.[address] Yesi Clinton Work Phone: [facility] Work Phone: 01-07-2022 09:43-0400 Body mass index (BMI) [Ratio] 36.3 kg/m2 Dr. Yesi Clinton Work Phone: [facility] Work Phone: 12-30-2021 13:57-0400 Body mass index (BMI) [Ratio] 36.3 kg/m2 Dr. Yesi Clinton Work Phone: [facility] Work Phone: 12-30-2021 13:57-0400 Body weight 105.[address] Yesi Clinton Work Phone: [facility] Work Phone: 12-30-2021 13:57-0400 Diastolic blood pressure 65 mm[Hg] Dr. Yesi Clinton Work Phone: [facility] Work Phone: 12-30-2021 13:57-0400 Heart rate 65 /min Dr. Yesi Clinton Work Phone: [facility] Work Phone: 12-30-2021 13:57-0400 Respiratory rate 16 /min Dr. Yesi Clinton Work Phone: [facility] Work Phone: 12-30-2021 13:57-0400 Systolic blood pressure 119 mm[Hg] Dr. Yesi Clinton Work Phone: [facility] Work Phone: 12-20-2021 14:00-0400 Diastolic blood pressure 74 mm[Hg] Dr. Bean Brower Work Phone: [facility] Work Phone: 12-20-2021 14:00-0400 Heart rate 73 /min Dr. Bean Brower Work Phone: [facility] Work Phone: 12-20-2021 14:00-0400 Systolic blood pressure 110 mm[Hg] Dr. Bean Brower Work Phone: [facility] Work Phone: 12-20-2021 12:23-0400 Respiratory rate 20 /min Dr. Bean Brower Work Phone: [facility] Work Phone: 12-20-2021 10:23-0400 Body height 170.[address] Bean Brower Work Phone: [facility] Work Phone: 12-20-2021 10:23-0400 Body mass index (BMI) [Ratio] 36.3 kg/m2 Dr. Bean Brower Work Phone: [facility] Work Phone: 12-20-2021 10:23-0400 Body temperature 97.7 [degF] Dr. Bean Brower Work Phone: [facility] Work Phone: 12-20-2021 10:23-0400 Body weight 105.[address] Bean Brower Work Phone: [facility] Work Phone: 12-20-2021 10:23-0400 SaO2% (BldA) [Mass fraction] 97 % Dr. Bean Brower Work Phone: [facility] Work Phone: 12-04-2021 14:44-0400 Body height 172.[address] Bean Brower Work Phone: [facility] Work Phone: 12-04-2021 14:44-0400 Body mass index (BMI) [Ratio] 35.9 kg/m2 Dr. Bean Brower Work Phone: [facility] Work Phone: 12-04-2021 14:44-0400 Body temperature 97.5 [degF] Dr. Bean Brower Work Phone: [facility] Work Phone: 12-04-2021 14:44-0400 Body weight 107.[address] Bean Brower Work Phone: [facility] Work Phone: 12-04-2021 14:44-0400 Diastolic blood pressure 60 mm[Hg] Dr. Bean Brower Work Phone: [facility] Work Phone: 12-04-2021 14:44-0400 Heart rate 67 /min Dr. Bean Brower Work Phone: [facility] Work Phone: 12-04-2021 14:44-0400 Respiratory rate 18 /min Dr. Bean Brower Work Phone: [facility] Work Phone: 12-04-2021 14:44-0400 SaO2% (BldA) [Mass fraction] 97 % Dr. Bean Brower Work Phone: [facility] Work Phone: 12-04-2021 14:44-0400 Systolic blood pressure 98 mm[Hg] Dr. Bean Brower Work Phone: [facility] Work Phone: 11-20-2021 11:31-0400 Diastolic blood pressure 56 mm[Hg] Dr. Bean Brower Work Phone: [facility] Work Phone: 11-20-2021 11:31-0400 Heart rate 102 /min Dr. Bean Brower Work Phone: [facility] Work Phone: 11-20-2021 11:31-0400 Systolic blood pressure 98 mm[Hg] Dr. Bean Brower Work Phone: [facility] Work Phone: 11-20-2021 10:34-0400 Body height 172.[address] Bean Brower Work Phone: [facility] Work Phone: 11-20-2021 10:34-0400 Body mass index (BMI) [Ratio] 35.6 kg/m2 Dr. Bean Brower Work Phone: [facility] Work Phone: 11-20-2021 10:34-0400 Body temperature 97.3 [degF] Dr. Bean Brower Work Phone: [facility] Work Phone: 11-20-2021 10:34-0400 Body weight 106.[address] Bean Brower Work Phone: [facility] Work Phone: 11-20-2021 10:34-0400 Respiratory rate 18 /min Dr. Bean Brower Work Phone: [facility] Work Phone: 11-20-2021 10:34-0400 SaO2% (BldA) [Mass fraction] 97 % Dr. Bean Brower Work Phone: [facility] Work Phone: 11-19-2021 00:12-0400 Diastolic blood pressure 70 mm[Hg] Dr. Bean Brower Work Phone: [facility] Work Phone: 11-19-2021 00:12-0400 Heart rate 81 /min Dr. Bean Brower Work Phone: [facility] Work Phone: 11-19-2021 00:12-0400 Respiratory rate 16 /min Dr. Bean Brower Work Phone: [facility] Work Phone: 11-19-2021 00:12-0400 Systolic blood pressure 111 mm[Hg] Dr. Bean Brower Work Phone: [facility] Work Phone: 11-18-2021 22:55-0400 SaO2% (BldA) [Mass fraction] 97 % Dr. Bean Brower Work Phone: [facility] Work Phone: 11-18-2021 21:04-0400 Body height 172.[address] Bean Brower Work Phone: [facility] Work Phone: 11-18-2021 21:04-0400 Body mass index (BMI) [Ratio] 35.9 kg/m2 Dr. Bean Brower Work Phone: [facility] Work Phone: 11-18-2021 21:04-0400 Body temperature 97.9 [degF] Dr. Bean Brower Work Phone: [facility] Work Phone: 11-18-2021 21:04-0400 Body weight 107.[address] Bean Brower Work Phone: [facility] Work Phone: 09-01-2021 11:09-0400 Body mass index (BMI) [Ratio] 38.9 kg/m2 Dr. Bean Brower Work Phone: [facility] Work Phone: 09-01-2021 11:09-0400 Body temperature 96.2 [degF] Dr. Bean Brower Work Phone: [facility] Work Phone: 09-01-2021 11:09-0400 Body weight 112.[address] Bean Brower Work Phone: [facility] Work Phone: 09-01-2021 11:09-0400 Diastolic blood pressure 70 mm[Hg] Dr. Bean Brower Work Phone: [facility] Work Phone: 09-01-2021 11:09-0400 Heart rate 63 /min Dr. Bean Brower Work Phone: [facility] Work Phone: 09-01-2021 11:09-0400 Respiratory rate 16 /min Dr. Bean Brower Work Phone: [facility] Work Phone: 09-01-2021 11:09-0400 SaO2% (BldA) [Mass fraction] 97 % Dr. Bean Brower Work Phone: [facility] Work Phone: 09-01-2021 11:09-0400 Systolic blood pressure 124 mm[Hg] Dr. Bean Brower Work Phone: [facility] Work Phone: 08-19-2021 14:34-0400 Body mass index (BMI) [Ratio] 38.7 kg/m2 Dr. Bean Brower Work Phone: [facility] Work Phone: 08-19-2021 14:34-0400 Body weight 112.[address] Bean Brower Work Phone: [facility] Work Phone: 08-19-2021 14:34-0400 Diastolic blood pressure 56 mm[Hg] Dr. Bean Brower Work Phone: [facility] Work Phone: 08-19-2021 14:34-0400 Heart rate 56 /min Dr. Bean Brower Work Phone: [facility] Work Phone: 08-19-2021 14:34-0400 Respiratory rate 16 /min Dr. Bean Brower Work Phone: [facility] Work Phone: 08-19-2021 14:34-0400 SaO2% (BldA) [Mass fraction] 98 % Dr. Bean Brower Work Phone: [facility] Work Phone: 08-19-2021 14:34-0400 Systolic blood pressure 110 mm[Hg] Dr. Bean Brower Work Phone: [facility] Work Phone: 08-03-2021 15:52-0500 SaO2% (BldA) [Mass fraction] 91 % Dr. Bean Brower Work Phone: [facility] Work Phone: 08-03-2021 11:08-0500 Heart rate 118 /min Dr. Bean Brower Work Phone: [facility] Work Phone: 08-03-2021 09:15-0500 Body temperature 98.2 [degF] Dr. Bean Brower Work Phone: [facility] Work Phone: 08-03-2021 09:15-0500 Diastolic blood pressure 78 mm[Hg] Dr. Bean Brower Work Phone: [facility] Work Phone: 08-03-2021 09:15-0500 Respiratory rate 16 /min Dr. Bean Brower Work Phone: [facility] Work Phone: 08-03-2021 09:15-0500 Systolic blood pressure 122 mm[Hg] Dr. Bean Brower Work Phone: [facility] Work Phone: 08-01-2021 19:15-0500 Body mass index (BMI) [Ratio] 39.5 kg/m2 Dr. Bean Brower Work Phone: [facility] Work Phone: 08-01-2021 19:15-0500 Body weight 114.[address] Bean Brower Work Phone: [facility] Work Phone: Encounters Encounter Date Encounter Type Care Provider Facility Start: 04-18-2025 ambulatory [place] Facility :[facility] Start: 04-11-2025 ambulatory Yesi Clinton Facili ty:[facility] Start: 04-11-2025 End: 04-11-2025 ambulatory Yesi Clinton Facility:[facility] Start: 02-23-2025 End: 02-23-[address] Glen Miguel DO -[facility] Work Phone: Start: 02-23-2025 End: 02-23-[address] Yesi Clinton MD Work Phone: -[facility] Start: 05-15-2024 End: 05-15-2024 ambulatory Yesi Clinton Facility:[facility] Start: 05-08-2024 End: 05-08-2024 ambulatory [facility] Start: 04-26-2024 End: 04-26-2024 ambulatory [facility] Start: 04-24-2024 End: 04-24-2024 ambulatory TOÑO Guerin [facility] Start: 04-21-2024 End: 04-21-2024 ambulatory [facility] Start: 04-19-2024 End: 04-20-2024 ambulatory Yesi Clinton Facility:[facility] Start: 04-18-2024 End: 04-18-2024 ambulatory Skip Rangel Facility:[facility] Start: 04-17-2024 End: 04-17-2024 ambulatory [facility] Start: 04-14-2024 End: 04-14-2024 ambulatory [facility] Start: 04-07-2024 End: 04-07-2024 ambulatory [facility] Start: 04-05-2024 End: 04-05-2024 ambulatory [facility] Start: 03-31-2024 End: 03-31-2024 ambulatory [facility] Start: 03-27-2024 End: 03-27-2024 ambulatory [facility] Start: 03-20-2024 End: 03-20-2024 ambulatory SHERRIE Tello [facility] Start: 03-17-2024 End: 03-17-2024 ambulatory [facility] Start: 03-15-2024 End: 03-15-2024 [facility] Start: 03-10-2024 End: 03-10-2024 [facility] Start: 03-08-2024 End: 03-08-2024 [facility] Start: 03-03-2024 End: 03-03-2024 [facility] Start: 03-01-2024 End: 03-01-2024 [facility] Start: 02-25-2024 End: 02-25-2024 [facility] Start: 02-11-[address] Dr[address] Yesi Clinton MD Work Phone: [facility] Start: 01-18-2024 End: 01-18-2024 [facility] Start: 09-07-2023 Non-patient / Non-visit Dr. Shirley Clinton Work Phone: [facility] Start: 09-07-2023 End: 09-08-2023 Evaluation and management of inpatient Dr. Yesi Clinton Work Phone: [facility]Intensive Care Unit Work Phone: Start: 09-01-2023 End: 09-01-[address] Yesi Clinton Work Phone: [facility] Work Phone: Start: 08-13-2023 ambulatory THOR BAIN Facility :[facility] Start: 08-13-2023 End: 08-13-2023 Subsequent hospital visit by physician Thor Bain APRN-SHOWROOM EXECUTIVE DIRECTOR Work Phone: [facility] Start: 07-29-2023 ambulatory SELF SELF Facility:[facility] Start: 07-21-2023 End: 07-21-[address] Yesi Clinton Work Phone: [facility] Work Phone: Start: 07-06-2023 End: 07-06-[address] Yesi Clinton Work Phone: [facility] Work Phone: Start: 07-06-2023 End: 07-06-[address] Yesi Clinton Work Phone: [facility] Work Phone: Start: 06-07-2023 Non-patient / Non-visit Dr. Shirley Clinton Work Phone: [facility] Start: 06-07-2023 End: 06-07-[address] Yesi Clinton Work Phone: [facility] Work Phone: Start: 06-07-2023 End: 06-07-[address] Yesi Clinton Work Phone: [facility] Work Phone: Start: 05-26-2023 End: 05-26-[address] Yesi Clinton Work Phone: [facility] Work Phone: Start: 05-26-2023 End: 05-26-[address] Yesi Clinton Work Phone: [facility] Work Phone: Start: 05-17-2023 End: 05-17-[address] Yesi Clinton Work Phone: [facility] Work Phone: Start: 05-17-2023 End: 05-17-[address] Yesi Clinton Work Phone: [facility] Work Phone: Start: 05-04-2023 End: 05-04-[address] Yesi Clinton Work Phone: [facility] Work Phone: Start: 05-04-2023 Non-patient / Non-visit Dr. Shirley Clinton Work Phone: [facility] Start: 05-04-2023 End: 05-04-[address] Yesi Clinton Work Phone: [facility] Work Phone: Start: 05-04-2023 End: 05-04-[address] [facility]i Clinton [facility] Work Phone: Start: 04-07-2023 End: 04-07-[address] Yesi Clinton Work Phone: [facility] Work Phone: Start: 04-06-2023 Non-patient / Non-visit Dr. Shirley Clinton Work Phone: [facility] Start: 04-06-2023 End: 04-06-[address] Yesi Clinton Work Phone: [facility] Work Phone: Start: 04-06-2023 End: 04-06-[address] Yesi Clinton [facility] Work Phone: Start: 04-05-2023 End: 04-05-[address] Yesi Clinton Work Phone: [facility] Work Phone: Start: 03-30-2023 End: 03-30-2023 ambulatory MANSI COMER Facility:[facility] Start: 03-30-2023 End: 03-30-2023 Subsequent hospital visit by physician Mansi Comer MD Work Phone: [facility] Comment on above: Persistent atrial fi brillation Arrived Start: 03-26-2023 End: 03-26-[address] Yesi Clinton Work Phone: [facility] Work Phone: Start: 03-26-2023 End: 03-26-[address] Yesi Clinton Work Phone: [facility] Work Phone: Start: 03-26-2023 End: 03-26-[address] Yesi Clinton Work Phone: [facility] Work Phone: Start: 03-24-2023 End: 03-24-[address] Yesi Clinton Work Phone: [facility] Work Phone: Start: 03-24-2023 End: 03-24-[address] Yesi Clinton Work Phone: [facility] Work Phone: Start: 03-11-2023 Non-patient / Non-visit Dr. Shirley Clinton Work Phone: [facility] Work Phone: Start: 03-11-2023 Non-patient / Non-visit Dr. Shirley Clinton Work Phone: [facility] Start: 03-11-2023 End: 03-11-[address] Yesi Clinton Work Phone: [facility] Work Phone: Start: 03-11-2023 End: 03-11-[address] Yesi Clinton [facility] Work Phone: Start: 03-01-2023 End: 03-01-[address] Yesi Clinton Work Phone: [facility] Work Phone: Start: 02-25-2023 End: 02-25-2023 Emergency department patient visit Dr. Yesi Clinton Work Phone: [facility]-Emergency Department Work Phone: Start: 01-15-2023 ambulatory [facility] Facility: [facility] Start: 11-30-2022 End: 11-30-[address] Yesi Clinton Work Phone: [facility] Work Phone: Start: 11-19-2022 End: 11-19-2022 Encounter for general adult medical examination without abnormal findings Dr. Yesi Clinton Work Phone: [facility] Start: 11-19-2022 End: 11-19-[address] Yesi Clinton Work Phone: [facility] Work Phone: Start: 11-08-2022 End: 11-08-2022 Emergency department patient visit Dr. Yesi Clinton Work Phone: [facility]-Emergency Department Work Phone: Start: 10-27-2022 End: 10-27-2022 Admission to same day surgery center Dr. Yesi Clinton Work Phone: [facility]-Production Line Worker/Special Procedures Start: 10-27-2022 End: 10-27-[address] Yesi Clinton Work Phone: [facility] Work Phone: Start: 10-20-2022 Non-patient / Non-visit Dr. Shirley Clinton Work Phone: [facility] Start: 10-01-2022 Non-patient / Non-visit Dr. Shirley Clinton Work Phone: [facility] Start: 10-01-2022 End: 10-01-[address] Yesi Clinton Work Phone: [facility] Work Phone: Start: 10-01-2022 End: 10-01-[address] Yesi Clinton Work Phone: [facility] Start: 09-28-[address] Parag Clinotn Work Phone: [facility] Start: 09-17-2022 End: 09-17-[address] Yesi Clinton Work Phone: [facility] Start: 09-16-2022 End: 09-16-2022 Emergency department patient visit Dr. Yesi Clinton Work Phone: [facility]-Emergency Department Start: 06-10-2022 End: 06-10-[address] Yesi Clinton Work Phone: [facility] Start: 06-09-2022 End: 06-09-[address] Yesi Clinton Work Phone: [facility] Start: 04-20-2022 Non-patient / Non-visit Dr. Sherry Brower Work Phone: [facility] Start: 04-20-2022 End: 04-20-[address] Bean Brower Work Phone: [facility] Work Phone: Start: 04-20-2022 End: 04-20-[address] Bean Brower Work Phone: [facility] Start: 04-04-2022 End: 04-04-2022 Emergency department patient visit Dr. Yesi Clinton Work Phone: [facility]-Emergency Department Start: 04-03-2022 End: 04-03-2022 ambulatory 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-Vika Remy NP Work Phone: [facility] Work Phone: Start: 04-03-2022 End: 04-03-[address] Yesi Clinton Work Phone: [facility]-Laboratory Start: 03-26-2022 End: 03-26-[address] Yesi Clinton Work Phone: [facility] Work Phone: Start: 03-26-2022 End: 03-26-[address] Yesi Clinton Work Phone: [facility]-Sleep Lab Start: 03-18-2022 End: 03-18-[address] Yesi Clinton Work Phone: [facility] Start: 03-05-2022 End: 03-05-[address] Yesi Clinton Work Phone: [facility]-Pulmonary Medicine [facility] Start: 02-19-2022 End: 02-19-[address] Yesi Clinton Work Phone: [facility]-Sleep Lab Start: 02-18-2022 End: 02-18-[address] Yesi Cardenas Phone: [facility] Start: 02-11-2022 Follow-up status Dr. Yesi Clinton Work Phone: [facility] Start: 02-11-2022 End: 02-11-2022 Emergency department patient visit Dr. Yesi Cardenas Phone: [facility]-Emergency Department Start: 02-03-2022 End: 02-03-[address] Yesi Cardenas Phone: [facility] Start: 01-14-2022 End: 01-14-[address] Yesi Cardenas Phone: [facility] Start: 01-08-2022 Non-patient / Non-visit Dr. Shirley Clinton Work Phone: [facility] Start: 01-08-2022 End: 01-08-2022 Admission to same day surgery center Dr. Yesi Clinton Work Phone: [facility]-Production Line Worker/Special Procedures Start: 01-08-2022 Non-patient / Non-visit Dr. Shirley Clinton Work Phone: [facility] Start: 12-30-2021 End: 12-30-[address] Yesi Clinton Work Phone: [facility] Start: 12-20-2021 End: 12-20-2021 Emergency department patient visit Dr. Bean Brower Work Phone: [facility]-Emergency Department Start: 12-12-2021 Non-patient / Non-visit Dr. Sherry Brower Work Phone: [facility] Start: 12-12-2021 End: 12-12-[address] Bean [facility] Start: 12-10-2021 Non-patient / Non-visit Dr. Sherry Brower Work Phone: [facility] Start: 12-10-2021 End: 12-10-[address] Bean Brower Work Phone: [facility] r Services Start: 12-04-[address] Kelley Brower Work Phone: [facility] Start: 12-04-2021 End: 12-04-2021 Encounter for general adult medical examination without abnormal findings Dr. Bean Brower Work Phone: [facility] Start: 12-04-2021 End: 12-04-[address] Bean Brower Work Phone: [facility] Start: 11-20-2021 End: 11-20-[address] Bean Brower Work Phone: [facility] Start: 11-18-2021 End: 11-19-2021 Emergency department patient visit Dr. Bean Brower Work Phone: [facility]-Emergency Department Start: 09-01-2021 End: 09-01-[address] Bean Brower Work Phone: [facility]-Laboratory, [facility] Start: 09-01-2021 End: 09-01-[address] Bean Brower Work Phone: [facility] Start: 08-19-2021 End: 08-19-[address] Bean Brower Work Phone: [facility] Start: 08-04-2021 Non-patient / Non-visit Dr. Sherry Brower Work Phone: [facility] Start: 08-03-2021 Non-patient / Non-visit Dr. Sherry Brower Work Phone: [facility] Inpatient Physicians Start: 08-03-2021 Non-patient / Non-visit Dr. Sherry Brower Work Phone: [facility] Start: 08-02-2021 Non-patient / Non-visit Dr. Sherry Brower Work Phone: [facility] Start: 08-01-2021 Non-patient / Non-visit Dr. Sherry Brower Work Phone: [facility] Start: 08-01-2021 End: 08-03-2021 Evaluation and management of inpatient Dr. Bean Brower Work Phone: [facility] Start: 03-25-2018 End: 03-28-2018 [facility] Procedures Date Procedure Procedure Detail Performing Clinician Start: 02-23-2025 Radiologic examinati on knee [address] Yesi Clinton MD Work Phone: Start: 09-07-[address] Yesi Clinton Work Phone: Start: 08-13-2023 Echo transthorc r-t 2d w/wo m-mode rec f-up/lmtd Thor Bain FUNDRAISING DIRECTOR-SHOWROOM EXECUTIVE DIRECTOR Work Phone: Start: 07-06-2023 CT of abdominal aort a with contrast Dr. Yesi Clinton Work Phone: Start: 05-26-[address] Celso Clinton Work Phone: Start: 05-26-2023 MRI of joint of uppe r extremity Dr. Yesi Clinton Work Phone: Start: 05-17-[address] Celso Clinton Work Phone: Start: 05-04-2023 X-ray of cervical spine Dr. Yesi Clinton Work Phone: Start: 03-30-2023 Ephys evl trnsptl tx atrial fib isolat pulm vein Mansi Comer MD Work Phone: Start: 03-30-2023 End: 03-30-2023 ACT* LOW RANGE, POC Mansi Comer MD Work Phone: Start: 03-30-2023 End: 03-30-2023 ACT* LOW RANGE, POC Mansi Comer MD Work Phone: Start: 03-30-2023 CBC AND ELECTRONIC DIFF Leigh Cuevas FUNDRAISING DIRECTOR-SHOWROOM EXECUTIVE DIRECTOR Work Phone: Start: 03-30-2023 Complete blood count with white cell differential, automated Leigh Cuevas FUNDRAISING DIRECTOR-SHOWROOM EXECUTIVE DIRECTOR Work Phone: Start: 03-30-2023 End: 03-30-2023 Creatinine blood Leigh Cuevas FUNDRAISING DIRECTOR-SHOWROOM EXECUTIVE DIRECTOR Work Phone: Start: 03-30-2023 Ct heart contrast ev al cardiac structure&morph Mansi Comer MD Work Phone: Start: 03-26-2023 X-ray of cervical spine Dr. Yesi Clinton Work Phone: Start: 03-26-[address] Yesi Clinton Work Phone: Start: 03-24-2023 Plain X-ray of shoulder Dr. Yesi Clinton Work Phone: Start: 02-25-2023 Plain chest X-ray Dr. Rj Clinton Work Phone: Start: 09-16-2022 Plain chest X-ray Dr. Rj Clinton Work Phone: Start: 06-09-2022 Radiologic examinati on of knee Dr. Yesi Clinton Work Phone: Start: 04-04-2022 Plain chest X-ray Dr. Rj Clinton Work Phone: Start: 02-11-2022 Plain chest X-ray Dr. Rj Clinton Work Phone: Start: 12-20-2021 US scan of gallbladder Dr. Bean Brower Work Phone: Start: 12-20-2021 CT of abdomen and pe lvis without contrast Dr. Bean Brower Work Phone: Start: 12-12-2021 Cardiovascular stres s test using pharmacologic stress agent Dr. Bean Brower Work Phone: Start: 11-18-2021 Plain chest X-ray Dr. Kelley Brower Work Phone: Start: 08-02-2021 Diagnostic radiograp hy of abdomen, decubitus and erect Dr. Bean Brower Work Phone: Start: 08-02-2021 Plain chest X-ray Dr. Kelley Brower Work Phone: Urine culture Dr. Bean tim Work Phone: Viral antigen assay Dr. Flor Brower Work Phone: Plan of Treatment Date Care Activity Detail Author Start: 04-18-2025 [facility] Start: 09-08-2023 Patient discharge [facility] Start: 09-07-2023 Admission procedure [facility] Start: 09-07-2023 Ambulation without limitation [facility] Start: 09-07-2023 Assessment of risk of venous thromboembolism [facility] Start: 09-07-2023 Continuous pulse oximetry [facility] Start: 09-07-2023 Elevation of head of bed [facility] Start: 09-07-2023 Insertion of catheter into peripheral vein [facility] Start: 09-07-2023 Measuring intake and output [facility] Start: 09-07-2023 Oxygen therapy [facility] Start: 09-07-2023 Patient referral to dietitian [facility] Start: 09-07-2023 Providing care according to standard [facility] Start: 09-07-2023 Provision of activity privileges [facility] Start: 09-07-2023 Referral to occupational therapist [facility] Start: 09-07-2023 Referral to service [facility] Start: 09-07-2023 Vital signs measurements [facility] Start: 09-07-2023 [facility] Start: 09-07-2023 Following clinical pathway protocol [facility] Start: 09-07-2023 Admission procedure [facility] Start: 05-11-2023 End: 03-30-2024 Cardiac telemetry MOBILE CARDIAC TELEMETRY ECG Routine Persistent atrial fibrillation Typical atrial flutter Expected: 05/11/2023, Expires: 03/30/2024 [facility] Comment on above: Expected: 05/11/2023, Expires: Start: 04-06-2023 Patient referral [facility] Work Phone: Start: 02-25-2023 [facility] Start: 01-29-2023 COVID-19 VACCINE ( season) COVID-19 VACCINE ( season) [facility] Start: 01-29-2023 Influenza vaccination INFLUENZA VACCINE (#1) [facility] Start: 09-16-2022 [facility] Start: 02-11-2022 Troponin I measurement [facility] Work Phone: Start: 02-11-2022 [facility] Work Phone: Start: 02-03-2022 Evaluation of diagnostic study results [facility] Work Phone: Start: 11-19-2021 [facility] Work Phone: Start: 11-18-2021 [facility] Work Phone: Start: 08-19-2021 Patient referral [facility] Work Phone: Start: 08-03-2021 Patient discharge [facility] Work Phone: Start: 08-02-2021 Care planning and problem solving actions [facility] Work Phone: Start: 08-02-2021 Referral to sat math tutor [facility] Work Phone: Start: 08-02-2021 Oxygen therapy [facility] Work Phone: Start: 08-01-2021 Care planning and problem solving actions [facility] Work Phone: Start: 08-01-2021 Ambulation without limitation [facility] Work Phone: Start: 08-01-2021 Assessment of risk of venous thromboembolism [facility] Work Phone: Start: 08-01-2021 Catheterization of vein [facility] Work Phone: Start: 08-01-2021 Insertion of catheter into peripheral vein [facility] Work Phone: Start: 08-01-2021 Measuring intake and output [facility] Work Phone: Start: 08-01-2021 Medication education [facility] Work Phone: Start: 08-01-2021 Providing care according to standard [facility] Work Phone: Start: 08-01-2021 [facility] Work Phone: Start: 08-01-2021 Following clinical pathway protocol [facility] Work Phone: Start: 08-01-2021 Admission procedure [facility] Work Phone: Start: 10-20-2018 Screening for malignant neoplasm of breast MAMMOGRAM SCREENING DISCUSSION [facility] Start: 2018 Pneumococcal vaccination [facility] Start: 10-10-2013 Tetanus vaccination TETANUS [facility] Start: 08-11-2003 Zoster vaccine hzv live for subcutaneous use ZOSTER (SHINGLES) VACCINE (1 of 2) [facility] Start: 1998 Screening for malignant neoplasm of colon COLORECTAL CANCER SCREENING DISCUSSION [facility] Start: 1993 Lipid panel LIPID SCREENING [facility] Start: 1993 Screening for malignant neoplasm of breast MAMMOGRAM SCREENING DISCUSSION [facility] Start: 1974 Screening for malignant neoplasm of cervix CERVICAL CANCER SCREENING DISCUSSION [facility] Start: 02-10-1954 COVID-19 VACCINE (#1) COVID-19 VACCINE (#1) [facility] Start: 1953 Hepatitis C screening HEPATITIS C VIRUS SCREENING [facility] Start: 1955 Screening for osteoporosis DEXA SCAN DISCUSSION [facility] Cardioversion [facility] Work Phone: DXA Bone [Mass/Area] Bone density [facility] Work Phone: Electrophysiology study EP PROCE DURE - EPS/ABLATION/DEVICE Electrophysiology Routine Persistent atrial fibrillation Typical atrial flutter 03/30/2023 2:51 PM EDT [facility] Evaluation of diagno stic study results [facility] Work Phone: MG Breast - bilatera l Screening [facility] Work Phone: MR Upper extremity.j oint WO and W contrast IV [facility] NM Heart Views W str ess and W radionuclide IV [facility] Work Phone: Patient Education [facility] Work Phone: Patient referral [facility] Work Phone: Polysomnography [facility] Work Phone: Troponin I measurement [facility] Work Phone: US Heart limited [facility] Work Phone: [facility] Work Phone: Immunizations Immunization Date Immunization Notes Care Provider Chriss milner 06-08-2022 influenza virus vaccine, unspecified formulation Mansi Comer MD Work Phone: [facility] Payers Date Payer Category Payer Self-pay [id number] 2022 Medicare MEDICARE MEDICAR E A AND B [id number] 2022-Present [address] [place] [address] [id number] 2021 Unknown [id number] 2021 Unknown [id number] 2018 Medicare [id number] 1953 Unknown [id number] 2.840.1.221801.3.579.2. 594 1953 Unknown [id number] 2.840.1.500700.3.579.2. 594 1953 Unknown [id number] 2.840.1.668824.3.579.2. 594 1953 Unknown [id number] 2.840.1.322380.3.579.2. 594 1953 Unknown [id number] 2.16.840.1.490164.3.579.2. 594 1953 Unknown [id number] 2.16.840.1.079275.3.579.2. 594 1953 Unknown [id number] 2.16.840.1.509267.3.579.2. 1242 1953 Unknown [id number] 2.16.840.1.907834.3.579.2. 1242 1953 Unknown [id number] 2.16.840.1.992635.3.579.2. 1242 1953 Unknown [id number] 2.16.840.1.051959.3.579.2. 1242 1953 Unknown [id number] 2.16.840.1.762156.3.579.2. 1242 1953 Unknown [id number] 2.16.840.1.323511.3.579.2. 1242 1953 Unknown [id number] 2.16.840.1.148787.3.579.2. 1242 1953 Unknown [id number] 2.16.840.1.386011.3.579.2. 1242 1953 Unknown [id number] 2.16.840.1.386636.3.579.2. 1242 1953 Unknown [id number] 2.16.840.1.091350.3.579.2. 1242 1953 Unknown [id number] 2.16.840.1.360221.3.579.2. 1242 1953 Unknown [id number] 2.16.840.1.556176.3.579.2. 1242 1953 Unknown [id number] 2.16.840.1.716582.3.579.2. 1242 1953 Unknown [id number] 2.16.840.1.310351.3.579.2. 1242 1953 Unknown [id number] 2.16.840.1.403978.3.579.2. 1242 1953 Unknown [id number] 2.16.840.1.888162.3.579.2. 1242 1953 Unknown [id number] 2.16.840.1.096728.3.579.2. 1243 1953 Unknown [id number] 2.16.840.1.881164.3.579.2. 1243 1953 Unknown [id number] 2.16.840.1.483577.3.579.2. 1243 Medicaid [id number] Private Health Insurance SELF PAY INSURAN CE [id number] Unknown [id number] Unknown [id number] 2.16.840.1.720744.3.579.2. 462 Unknown [id number] 2.16.840.1.770218.3.579.2. 462 Unknown [id number] 2.16.840.1.725829.3.579.2. 462 Unknown [id number] 2.16.840.1.312291.3.579.2. 462 Unknown [id number] 2.16.840.1.518852.3.579.2. 462 Unknown [id number] 2.16.840.1.908963.3.579.2. 462 Unknown [id number] 2.16840.1.310936.3.579.2. 462 Unknown [id number] 2.16840.1.939535.3.579.2. 462 Unknown [id number] 2.16840.1.711600.3.579.2. 462 Social History Date Type Detail Facility Start: 11-18-2021 End: 09-01-2023 Tobacco smoking status NHIS Unknown if ever smoked [facility] Start: 1955 Sex Assigned At Female W [facility] Start: 03-30-2023 End: 02-07-2024 Tobacco smoking status NHIS Ex-smoker [facility] End: 05-31-2012 History of tobacco use Current smoker [facility] End: 05-31-2012 History of tobacco use Cigarette Smoker [facility] Start: 03-30-2023 End: 07-29-2023 Tobacco use and exposure Smokeless tobacco non-user [facility] Start: 03-30-2023 End: 07-29-2023 Alcohol intake Ex-drinker (finding) [facility] Start: 03-30-2023 End: 07-29-2023 History of Social function [facility] Start: 03-30-2023 End: 07-29-2023 Tobacco use panel [facility] Start: 1955 Sex Assigned At Not on file O [facility] Medical Equipment Procedure Code Equipment Code Equipment Origin al Text Equipment Identifier Dates Endarterectomy, femoral Ligation clip, metallic ()[id number] FDA Start: 09-07-2023 Endarterectomy, femoral Ligation clip, metallic ()[id number] FDA Start: 09-07-2023 ([id number]) Metal-backed patella prosthesis ()[id number] FDA Start: 02-22-2024 ([id number]) Coated knee femu r prosthesis ()[id number] FDA Start: 02-22-2024 ([id number]) Coated knee tibi a prosthesis ()[id number] FDA Start: 02-22-2024 Tibial insert ()[id number] FDA Start: 02-22-2024 Goals Date Patient Goal Desired Activity /State Functional Status Date Assessment Result Facility 09-08-[address] [facility] Work Phone: 08-03-2021 Functional status Bedside Commode [facility] Work Phone: Mental Status Date Assessment Result Facility 09-08-2023 Cognitive function Voice/Name [facility] Work Phone: 02-25-2023 Cognitive function Level Of Cons ciousness Awake;Alert;Appropriate [facility] Work Phone: 11-08-2022 Cognitive function Voice/Name [facility] Work Phone: 09-16-2022 Cognitive function Level Of Cons ciousness Awake;Alert;Appropriate;Follow s Commands [facility] Work Phone: 04-04-2022 Cognitive function Level Of Cons ciousness Awake;Alert;Appropriate;Follow s Commands [facility] Work Phone: 02-11-2022 Cognitive function Voice/Name [facility] Work Phone: 11-18-2021 Cognitive function Level Of Cons ciousness Awake;Alert;Appropriate [facility] Work Phone: 08-03-2021 Cognitive function Voice/Name [facility] Work Phone: Clinical Notes 08-01-2021 to 02-23-2025 Note Date & Type Note Facility 02-23-2025 Progress note [facility] 02-23-2025 Radiology Diagnostic study note [facility] Imaging Services [address] [place] [address] Knee 3 Views MR#: [id number] Acct: [id number] Name: BEULAH MCPHERSON Rep #: [id number] : 1955 F 69 From: Fransisco Blanco DO PCP: Dr. Yesi Clinton MD Status: D EP AMB Study:Knee 3 Views Date of Exam: 5 Exam# [id number] Ordering Dr: Glen Miguel DO PROCEDURE: KNEE 3 VIEWS 02/23/2025 REASON FOR EXAM: 1 YR POST OP TECHNIQUE: Procedure Code: RADPAT Modality: DX Procedure: KNEE 3 VIEWS Laterality: Right COMPARISON: Right knee studies dated 04/03/2024, 02/22/2024, and 06/09/2022 FINDINGS: Three views of the right knee were obtained. Bones: Diffuse osteopenia of the osseous structures are noted. No acute fractures or dislocations are noted. Joints: A total knee arthroplasty has been performed. Effusion: No effusion. Soft tissues: Soft tissues are unremarkable. Other: The radiopaque hardware is intact without evidence of fracture or loosening. There is a large calcification posterior to the knee measuring 2.4 x 1.6 cm. RAD/Knee 3 Views IMPRESSION: The radiopaque hardware appears to be intact without evidence of fracture or loosening. Reading Location: [id number] CC: Dr. Yesi Clinton MD; Dr. Glen Miguel DO ~ Real Estate Operations Manager: Signed [facility] 09-07-2023 History and physi gini note Note Date/Time September 07, 2023 7:33am [facility] Medical Records Department [address] [place] [address] History & Physical Exam 09/07/23 0731 MR#: [id number] Acct: [id number] Name: BEULAH MCPHERSON Rep #:[id number] : 1955 68 From: Doug Nowak MD PCP: Dr. Yesi Clinton MD Status:A DM IN Location: [place] [address] HPI - General General Date of Admission: 09/07/23 HPI Narrative BEULAH MCPHERSON, is a 68 F who presents with an iatrogenic right SFA pseudoaneurysmafter cardiac ablation. This has failed to resolve with observation. Presents for open repair [facility] Medical History Ambulates with cane Anemia Arthritis Atrial fibrillation with rapid ventricular response (08/01/21) Back pain Cardiology follow-up encounter Cervical radiculopathy COVID Excessive bleeding Fatty liver Foot drop, right Former smoker Health care maintenance HFrEF (heart failure with reduced ejection fraction) History of atrial fibrillation History of CHF (congestive heart failure) History of echocardiogram History of kidney stones History of pain when walking History of stress test Hyperlipidemia Hypertension Kidney stones Leg cramps Loose, teeth Lumbar radiculopathy Malaise and fatigue Migraines Osteoarthritis (arthritis due to wear and tear of joints) Post-menopausal Right knee pain Sleep apnea UTI (urinary tract infection) Wears glasses Home Medications Handicap Placard #1 ea 09/01/21 [Rx Last Taken Unknown] miconazole nitrate 2 % topical powder 1 applic topical BID PRN skin 02/03/22 [History Last Taken Unknown] acetaminophen 500 mg tablet 1,000 mg PO TID pain 03/18/22 [History Last Taken 09/06/23] furosemide 40 mg tablet 40 mg PO .PRN PRN edema, weight gain, SOB #30 tabs 11/30/22 [Rx Last Taken 07/01/23] tramadol 50 mg tablet 50 mg PO TID PRN pain #21 tabs 03/26/23 [Rx Last Taken Unknown] apixaban 5 mg tablet (Eliquis) 5 mg PO BID BLOOD THINNER #60 tabs 06/29/23 [Rx Last Taken 09/06/23] sacubitril 24 mg-valsartan 26 mg tablet (Entresto) 1 tab PO BID HEART #60 tabs 06/29/23 [Rx Last Taken 09/07/23] metoprolol tartrate 50 mg tablet 50 mg PO BID BP #180 tabs 08/31/23 [Rx Last Taken 09/07/23] Allergy/AdvReac Type Severity Reaction Status Date / Time piperacillin [From Zosyn] Allergy Rash Verified 09/01/23 09:24 tazobactam [From Zosyn] Allergy Rash Verified 09/01/23 09:24 amiodarone AdvReac Intermediate Lightheaded, Verified 09/01/23 09:24 feeling of impending doom diltiazem AdvReac Mild edema Verified 09/01/23 09:24 Family History Father CVA (cerebral vascular accident) Colon cancer Surgical History H/O total hip arthroplasty History of cardiac radiofrequency ablation (RFA) (03/30/23) History of cardioversion (01/08/22) History of laminectomy (~2015) History of total left knee replacement Hx of cardiac catheterization (~10/27/22) Social History Smoking Status: Former smoker how long ago did patient quit smokin years ago alcohol intake: never substance use type: does not use caffeine: Yes Type: coffee Number of servings: 1 ROS Constitutional Constitutional: Denies chills, fever(s), frequent falls, lethargy or weakness Eyes Eyes: Denies blind spots, change in vision or loss of vision ENT HEENT: Denies bleeding gums, hoarseness or sore throat Cardiovascular Cardiovascular: Denies abdominal pain, bluish discoloration of hand/feet, chest pain with activity, claudication, cold extremities, cyanosis, dyspnea on exertion, erythema on extremities, irregular heart rhythm, leg edema, leg ulcers, numbness in extremities or weakness in extremities Respiratory/Chest Respiratory/Chest: Denies cough, excessive phlegm production, shortness of breath at rest, shortness of breath with exertion or wheezing Gastrointestinal Gastrointestinal: Denies anorexia, change in stool character, constipation, diarrhea, melena or rectal bleeding Genitourinary Genitourinary: Denies dysuria or hematuria Musculoskeletal Musculoskeletal: Denies abnormal gait Integumentary Integumentary: Reports other Details: ; Denies erythema, non-healing lesions or wounds Neurologic Neurologic: Denies abnormal speech, focal weakness, headache(s), loss of vision,numbness, paresthesias or sensory deficit Hematologic/Lymphatic Hematologic/Lymphatic: Denies easy bleeding, easy bruising or lymphadenopathy Vital Signs Vital Signs Vital Signs: 09/07/23 06:31 09/07/23 06:44 Temperature 99.0 F Temperature Source Temporal Pulse Rate 62 Respiratory Rate 16 Respiratory Pattern Normal Blood Pressure 109/49 L Blood Pressure Mean 69 Blood Pressure Source Monitor Blood Pressure Position Semi-Fowlers Blood Pressure Location Right Arm Pulse Ox 96 Oxygen Delivery Method Room Air Weight Weight: 235 lb 14.314 oz Body Mass Index (BMI) 36.9 Physical Exam Const alert, oriented x3, no apparent distress and healthy appearing General Appearance: cooperative; Negative for combative or lethargic Orientation / Consciousness: awake Exam Limitations: no limitations HEENT Head and Scalp: normocephalic and atraumatic Eyes EOMs intact bilaterally General Eye: normal appearance of both eyes Neck full ROM, no lymphadenopathy, thyroid normal and No no carotid bruits General: trachea midline; Negative for lymphadenopathy or tenderness Thyroid: thyroid normal Lymph Lymphatic: Negative for no lymphadenopathy noted Resp normal respiratory effort and no use of accessory muscles Effort and Inspection: Negative for labored, stridor or audible wheezes Cardio regular rate and regular rhythm Back/Spine Cervical Spine: cervical ROM normal Extremity full ROM, normal capillary refill and no clubbing, cyanosis or edema Skin no rashes or lesions noted and no wounds Neuro oriented x3, CN's II-XII intact bilaterally, no focal motor deficits and no sensory deficits noted Psych thought process normal, cooperative, affect normal, speech normal and activity/motor behavior normal Results Lab / Micro Data 08/26/23 09:25 08/26/23 09:25 Assessment & Plan Assessment/Plan (1) Pseudoaneurysm of femoral artery following procedure: PLAN: -open repair 09/07/23732 <Electronically signed by Doug Nowak MD> Cosigner Signature (if applicable): CC: Dr. Yesi Clinton MD; Dr. Doug Nowak MD~ Signed [facility] Work Phone: [phone]) 139-465610-31-2023 Nurse Note* Nursing Notes - Tahira Rooney RN - 03/30/2023 7:48 PM EDTSummary: Discharge note Pt ready for discharge s/p Afib RFA with anesthesia today. R groin site soft with dressing clean dry and intact. Pt with limited mobility due to arthritis and needing R knee replacement. Pt ambulatedin room with cane and to bathroom x 2. No bleeding no hematoma. Discharge instructions and printed AVS reviewed with patient by this RN, all questions answered. Pt verbalizes understanding. IV dc'd with no difficulty and catheter tip intact. Telemetry dc'd. VS stable at time of discharge. Patient being discharged to home with aunt. No patient belongings left at bedside. Post procedure recovery without events.Pt given scheduled meds including prn Tylenol for arthritis pain prior to discharge. Tahira Rooney RN [facility]10-31-2023 Miscellaneous Notes* Nursing Notes - Tahira Rooney RN - 03/30/2023 7:48 PM EDTSummary: Discharge note Pt ready for discharge s/p Afib RFA with anesthesia today. R groin site soft with dressing clean dry and intact. Pt with limited mobility due to arthritis and needing R knee replacement. Pt ambulatedin room with cane and to bathroom x 2. No bleeding no hematoma. Discharge instructions and printed AVS reviewed with patient by this RN, all questions answered. Pt verbalizes understanding. IV dc'd with no difficulty and catheter tip intact. Telemetry dc'd. VS stable at time of discharge. Patient being discharged to home with aunt. No patient belongings left at bedside. Post procedure recovery without events.Pt given scheduled meds including prn Tylenol for arthritis pain prior to discharge. Tahira Rooney RN * Nursing Notes - Tahira Rooney RN - 03/30/2023 6:47 PM EDT Pt sitting on the side of the bed. Tahira Rooney RN * Nursing Notes - Jan Forrest RN - 03/30/2023 4:03 PM EDT Patient tried to use the bedpan post procedure and was unable to urinate. Reported to 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 that bladder scan showed 500ml of urine. Straight cath performed and 400 ml of urine removed from bladder patient stated feeling relief of pressure. No further needs at this time. documented in this encounter[facility] Nurse Note* Nursing Notes - Tahira Rooney RN - 03/30/2023 6:47 PM EDT Pt sitting on the side of the bed. Tahira Rooney RN [facility]10-31-[facility]23 Hospital Discharge instructions* Discharge Instr - Activity* Ave Serna APRN-SHOWROOM EXECUTIVE DIRECTOR - 03/30/2023 4:27 PM EDT Post Ablation Activity Your activity is restricted only as indicated by your physician. Please refer to education for ablation and other care recommendations. - No driving for 24 hours - Keep incision dry - Limit bending at the waist for 48 hours - May resume regular activity in 1-2 weeks unless otherwise notified - Return to work in 1 week - No tub baths or hot tub for 2 weeks or until groin site is healed - No lifting greater than 10-15 pounds for 1 week. Rest for 24 hours after you are home. You should have someone with you to help you the first night you are home. DO NOT drive for 24 hours. DO NOT make any important decisions for 24 hours. DO NOT work around the stove, machinery or power equipment for 24 hours. * Discharge Instr - Diet* JESÚS Johnson - 03/30/2023 4:27 PM EDT Diet: Cardiac 4gm NA Low sodium, low fat, low cholesterol, caffeine controlled. Sodium restricted to 4 grams. * Discharge Instr - Notify* JESÚS Johnson - 03/30/2023 4:27 PM EDT Images from the original note were not included. NOTIFY PHYSICIAN BLEEDING/BRUISING -If severe bleeding, apply pressure -Increased bleeding from site -Increased bruising or hematoma Chest pain or shortness of breath Respiratory Changes Call your doctor or nurse if you have shortness of breath that gets worse -Cough that gets worse -Coughing up blood Stroke Symptoms Call 911 if you suddenly have any of these signs of a stroke: -Numbness or muscle weakness -Trouble swallowing -Problems talking -Dizziness or feeling unsteady -Severe headache -Confusion SYMPTOMS OF DVT DVT = Deep Vein Thrombus, or Blood Clot -any tender, swollen, or reddened areas from your groin to your heels. -numbness or tingling in groin or calf -the skin on your leg looks pale or blue or it feels cold to touch -any shortness of breath -chest pain -fever or chills NAUSEA: When you are nauseated, you may feel weak and sweaty and notice a lot of saliva in your mouth. Nausea often leads to vomiting. Most of the time you do not need to worry about nausea and vomiting, butthey can be signs of other illnesses. The doctor has checked you carefully, but problems can develop later. If you notice any problems ornew symptoms, get medical treatment right away. Follow-up care is a wills part of your treatment and safety. Be sure to make and go to all appointments, and call your doctor if you are having problems. It's also a good idea to know your test resultsand keep a list of the medicines you take. How can you care for yourself at home? To prevent dehydration, drink plenty of fluids, enough so that your urine is light yellow or clear like water. Choose water and other caffeine-free clear liquids until you feel better. If you have kidney, heart, or liver disease and have to limit fluids, talk with your doctor before you increase the amount of fluids you drink. Rest in bed until you feel better. When you are able to eat, try clear soups, mild foods, and liquids until all symptoms are gone for 12 to 48 hours. Other good choices include dry toast, crackers, cooked cereal, and gelatin dessert, such as Jell-O. When should you call for help? Call 911 anytime you think you may need emergency care. For example, call if: You passed out (lost consciousness) Call your doctor now or seek immediate medical care if: You have symptoms of dehydration, such as: Dry eyes and a dry mouth Passing only a little dark urine Feeling thirstier than usual You have new or worsening belly pain You have a new or higher fever You vomit blood or what looks like coffee grounds Watch closely for changes in your health, and be sure to contact your doctor if: You have on going nausea and vomiting Your vomiting gets worse Your vomiting last longer than 2 days You are not getting better as expected Where can you learn more? Go to [email or web address]://www.[employer].net/osumychart. * Discharge Instr - Wound Care* JESÚS Johnson - 03/30/2023 4:27 PM EDT Catheter site care You can remove your bandages the day after the procedure. You may shower 24 to 48 hours after the procedure, if your doctor okays it. Pat the incision dry. Do not soak the catheter site until it is healed. Don't take a bath for 1 week, or until your doctor tells you it is okay. Watch for bleeding from the site. A small amount of blood (up to the size of a quarter) on the bandage can be normal. If you are bleeding, lie down and press on the area for 15 minutes to try to make it stop. If the bleeding does not stop, call your doctor or seek immediate medical care. documented in this encounterOS[facility] Nurse Note* Nursing Notes - Jan Forrest RN - 03/30/2023 4:03 PM EDT Patient tried to use the bedpan post procedure and was unable to urinate. Reported to 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 that bladder scan showed 500ml of urine. Straight cath performed and 400 ml of urine removed from bladder patient stated feeling relief of pressure. No further needs at this time. [facility] Evaluation note* Diagnosis Onset Date Resolution Status Malaise and fatigue acute Foul smelling urine resolved Pseudoaneurysm of femoral ar gail following procedure acute History of cardiac radiofreq uency ablation (RFA) March 30, 2023 acute Near syncope acute Palpitations acute Pseudoaneurysm of femoral ar gail following procedure acute Sleep apnea acute Pseudoaneurysm of femoral ar gail following procedure acute [facility] Work Phone: [phone] 585-461710-31-2023 History and physical note* JESÚS Johnson - 03/30/2023 7:50 AM EDT Images from the original note were not included. Chief Complaint Shortness of Breath HPI Beulah Mcpherson is a 67 y.o. female with a history of HLD, anemia, obesity and atrial fibrillation. She was diagnosed with Afib with RVR in July 2021. At the time LVEF was 25%. She had cardioversion inA2021. She was on flecainide for 6 months which kept her in sinus rhythm but she did not feelwell on it. Flecainide was stopped in August 2022 and she went into Afib 12 days after that. She wason amiodarone at some point but had lightheadedness. Most recent TTE in September 2022 showed recovered EF. Event monitor in September 2022 showed paroxysmal Afib and NSVT. She was seen in consultation with Dr. Comer with recommendation for ablation for which she presents today. She continues to be symptomatic with SOB and fatigue as well as chest pain that radiates down her left arm. LHC 09/2022 showed non-obstructive CAD, normal LV size, no wall motion abnormality, normal systolic function. Recently evaluated for HR 110-140, found to be in AFL/AFIB on ECG; managed with metoprolol. She has experienced no recent illness, denies fevers, chills, s/s infection. She is anticoagulated with Eliquis for EDGARD [id number] of 3. Patient Active Problem List Diagnosis Anemia Hip arthritis Lumbago with sciatica, right side Mixed hyperlipidemia Obesity, Class III, BMI 40-49.9 (morbid obesity) Obesity (BMI 30-39.9) Right foot drop Serum creatinine raised Persistent atrial fibrillation Past Medical History: Diagnosis Date Anemia Arrhythmia Congestive heart failure Migraine GERARD (obstructive sleep apnea) No past surgical history on file. Medications Prior to Admission Medication Sig Dispense Refill Last Dose Acetaminophen (TYLENOL PO) Take 1,000 mg by mouth 3 (three) times a day. 03/30/2023 at 0600 Eliquis 5 MG tablet Take by mouth every 12 hours. 03/29/2023 at 2100 Metoprolol 25 MG tab regular release Take 1 tablet by mouth 2 times daily. 03/30/2023 at 0600 sacubitril-valsartan (Entresto) 24-26 MG tablet Take 1 tablet by mouth 2 times daily. 03/28/2023 [id number] traMADol 50 MG tablet Take 1 tablet by mouth every 6 hours as needed for Moderate Pain. Past Week Allergies Allergen Reactions Amiodarone Dizzy/Vertigo Cardizem [Diltiazem] Swelling Zosyn [Piperacillin Sod-Tazobactam So] Hives Social History Socioeconomic History Marital status: Single Tobacco Use Smoking status: Former Types: Cigarettes Quit date: 05/31/2012 Years since quittin.8 Smokeless tobacco: Never Substance and Sexual Activity Alcohol use: Not Currently Drug use: Not Currently History reviewed. No pertinent family history. Referring MD: Dr Skip Rangel PCP Yesi DEGROOT MD: Dr Comer Anticoagulation: Eliquis Has the patient missed any doses of anticoagulation. Yes, as instructed When was the last dose taken. Yesterday evening [id number]- Vasc score: 3 ( HF, age, gender ) Previous antiarrythmic medications: Amiodarone and Flecainide stopped 2/2 adverse effects Prior Cardiac testing: CT Pulmonary Veins 03/30/2023: No RA or LA thrombus. Filling defect on first-pass imaging that completely fills in on delayed imaging indicates LUÍS stasis without thrombus. 2. Moderate coronary calcification within the limitation of the study. 3. Normal pulmonary venous anatomy. ECHOCARDIOGRAM (OUTSIDE) (Final) Review of System Constitutional: Negative for fever, weight loss, weight gain and malaise/fatigue. Skin: Negative. HEENT: Negative. Cardiovascular: Negative for leg swelling. Negative for palpitations, chest pain, dyspnea, orthopnea, claudication, edema and PND. Negative for lightheadedness or syncope. Respiratory: Negative for cough. Is not experiencing shortness of breath currently. Gastrointestinal: Negative for abdominal pain, nausea, vomiting, diarrhea, melena, and constipation. Endocrine: Negative for polyuria, polydipsia, heat or cold intolerance. Genitourinary: Negative for frequency or burning with urination. Past history of BPH or difficult catheterization? no. Neurological: Negative for dizziness and headaches. Psychiatric: Negative for depression, nervous/anxious and substance abuse. Telemetry/EKG: AFIB BP 133/78 (BP Location: Right arm, BP Position: Lying) Pulse 85 Resp 16 Ht 1.702 m (5' 7) Wt 107 kg (236 lb) SpO2 97% BMI 36.96 kg/m Smoking Status Former Body mass index is 36.96 kg/m . Physical Exam General appearance - alert, LOC x 3, well appearing, and in no distress Neck - supple, no significant adenopathy, carotids upstroke normal bilaterally without bruits. Chest - lungs clear to auscultation, breath sounds equal and symmetric, no rhonchi, rales or wheezes Heart - irregularly irregular, S1 and S2 normal, no murmurs, clicks, gallops or rubs, normal bilateral carotid upstroke without bruits, no JVD Abdomen - soft, nontender, nondistended, no masses or organomegaly, bowel sounds present x 4 quadrants. Extremities - peripheral pulses normal, no pedal edema, no clubbing or cyanosis Skin - normal coloration and turgor, no rashes, no suspicious skin lesions noted Lab Results Component Value Date SODIUM 140 03/30/2023 POTASSIUM 4.2 03/30/2023 CHLORIDE 108 03/30/2023 CO2 22 03/30/2023 BUN 23 03/30/2023 CREATSERUM 1.09 03/30/2023 GLUCOSE 89 03/30/2023 Lab Results Component Value Date WBC 8.27 03/30/2023 HGB 14.9 03/30/2023 HCT 45.2 (H) 03/30/2023 PLATELET 236 03/30/2023 MCV 91.5 03/30/2023 INR Date Value Ref Range Status 03/30/2023 1.2 (H) 0.9 - 1.1 Final Assessment and Plan AFL/AFIB -CT shows no thrombus -NPO since midnight -AC held as instructed -Labs pending Discussed report of CP with Dr Khan and Dr. Comer. Okay to proceed with scheduled ablation as scheduled. Associated attestation - Mansi Comer MD - 03/30/2023 10:57 AM EDT Attending Physician Note I have personally interviewed and examined this patient with the Nurse Practitioner on 03/30/23. I have reviewed the history and examination and edited these in the note above. I agree with the medical decision and components of the note as edited by me. Patient is alert and oriented and VS stable. She presents with persistent AF with associated tachycardia mediated cardiomyopathy. We plan EPS RFA with CARTO 3 d mapping and WACA approach. We will also proceed with RA flutter ablation as well. The procedure was explained with indication, risks and benefits and she consents to proceed. Mansi Comer MD, [facility], [facility] Genevieve Jett Chair in Cardiac Electrophysiology Professor of Clinical Medicine [facility]10-31-2023 History and physical note* Ave Jermaine Serna, FUNDRAISING DIRECTOR-SHOWROOM EXECUTIVE DIRECTOR - 03/30/2023 7:50 AM EDT Images from the original note were not included. Chief Complaint Shortness of Breath HPI Beulah Mcpherson is a 67 y.o. female with a history of HLD, anemia, obesity and atrial fibrillation. She was diagnosed with Afib with RVR in July 2021. At the time LVEF was 25%. She had cardioversion inAugu2021. She was on flecainide for 6 months which kept her in sinus rhythm but she did not feelwell on it. Flecainide was stopped in August 2022 and she went into Afib 12 days after that. She wason amiodarone at some point but had lightheadedness. Most recent TTE in September 2022 showed recovered EF. Event monitor in September 2022 showed paroxysmal Afib and NSVT. She was seen in consultation with Dr. Comer with recommendation for ablation for which she presents today. She continues to be symptomatic with SOB and fatigue as well as chest pain that radiates down her left arm. C 09/2022 showed non-obstructive CAD, normal LV size, no wall motion abnormality, normal systolic function. Recently evaluated for HR 110-140, found to be in AFL/AFIB on ECG; managed with metoprolol. She has experienced no recent illness, denies fevers, chills, s/s infection. She is anticoagulated with Eliquis for EDGARD [id number] of 3. Patient Active Problem List Diagnosis Anemia Hip arthritis Lumbago with sciatica, right side Mixed hyperlipidemia Obesity, Class III, BMI 40-49.9 (morbid obesity) Obesity (BMI 30-39.9) Right foot drop Serum creatinine raised Persistent atrial fibrillation Past Medical History: Diagnosis Date Anemia Arrhythmia Congestive heart failure Migraine GERARD (obstructive sleep apnea) No past surgical history on file. Medications Prior to Admission Medication Sig Dispense Refill Last Dose Acetaminophen (TYLENOL PO) Take 1,000 mg by mouth 3 (three) times a day. 03/30/2023 at 0600 Eliquis 5 MG tablet Take by mouth every 12 hours. 03/29/2023 at 2100 Metoprolol 25 MG tab regular release Take 1 tablet by mouth 2 times daily. 03/30/2023 at 0600 sacubitril-valsartan (Entresto) 24-26 MG tablet Take 1 tablet by mouth 2 times daily. 03/28/2023 [id number] traMADol 50 MG tablet Take 1 tablet by mouth every 6 hours as needed for Moderate Pain. Past Week Allergies Allergen Reactions Amiodarone Dizzy/Vertigo Cardizem [Diltiazem] Swelling Zosyn [Piperacillin Sod-Tazobactam So] Hives Social History Socioeconomic History Marital status: Single Tobacco Use Smoking status: Former Types: Cigarettes Quit date: 05/31/2012 Years since quittin.8 Smokeless tobacco: Never Substance and Sexual Activity Alcohol use: Not Currently Drug use: Not Currently History reviewed. No pertinent family history. Referring MD: Dr Skip Rangel PCP Yesi DEGROOT MD: Dr Comer Anticoagulation: Eliquis Has the patient missed any doses of anticoagulation. Yes, as instructed When was the last dose taken. Yesterday evening [id number]- Vasc score: 3 ( HF, age, gender ) Previous antiarrythmic medications: Amiodarone and Flecainide stopped 2/2 adverse effects Prior Cardiac testing: CT Pulmonary Veins 03/30/2023: No RA or LA thrombus. Filling defect on first-pass imaging that completely fills in on delayed imaging indicates LUÍS stasis without thrombus. 2. Moderate coronary calcification within the limitation of the study. 3. Normal pulmonary venous anatomy. ECHOCARDIOGRAM (OUTSIDE) (Final) Review of System Constitutional: Negative for fever, weight loss, weight gain and malaise/fatigue. Skin: Negative. HEENT: Negative. Cardiovascular: Negative for leg swelling. Negative for palpitations, chest pain, dyspnea, orthopnea, claudication, edema and PND. Negative for lightheadedness or syncope. Respiratory: Negative for cough. Is not experiencing shortness of breath currently. Gastrointestinal: Negative for abdominal pain, nausea, vomiting, diarrhea, melena, and constipation. Endocrine: Negative for polyuria, polydipsia, heat or cold intolerance. Genitourinary: Negative for frequency or burning with urination. Past history of BPH or difficult catheterization? no. Neurological: Negative for dizziness and headaches. Psychiatric: Negative for depression, nervous/anxious and substance abuse. Telemetry/EKG: AFIB BP 133/78 (BP Location: Right arm, BP Position: Lying) Pulse 85 Resp 16 Ht 1.702 m (5' 7) Wt 107 kg (236 lb) SpO2 97% BMI 36.96 kg/m Smoking Status Former Body mass index is 36.96 kg/m . Physical Exam General appearance - alert, LOC x 3, well appearing, and in no distress Neck - supple, no significant adenopathy, carotids upstroke normal bilaterally without bruits. Chest - lungs clear to auscultation, breath sounds equal and symmetric, no rhonchi, rales or wheezes Heart - irregularly irregular, S1 and S2 normal, no murmurs, clicks, gallops or rubs, normal bilateral carotid upstroke without bruits, no JVD Abdomen - soft, nontender, nondistended, no masses or organomegaly, bowel sounds present x 4 quadrants. Extremities - peripheral pulses normal, no pedal edema, no clubbing or cyanosis Skin - normal coloration and turgor, no rashes, no suspicious skin lesions noted Lab Results Component Value Date SODIUM 140 03/30/2023 POTASSIUM 4.2 03/30/2023 CHLORIDE 108 03/30/2023 CO2 22 03/30/2023 BUN 23 03/30/2023 CREATSERUM 1.09 03/30/2023 GLUCOSE 89 03/30/2023 Lab Results Component Value Date WBC 8.27 03/30/2023 HGB 14.9 03/30/2023 HCT 45.2 (H) 03/30/2023 PLATELET 236 03/30/2023 MCV 91.5 03/30/2023 INR Date Value Ref Range Status 03/30/2023 1.2 (H) 0.9 - 1.1 Final Assessment and Plan AFL/AFIB -CT shows no thrombus -NPO since midnight -AC held as instructed -Labs pending Discussed report of CP with Dr Khan and Dr. Comer. Okay to proceed with scheduled ablation as scheduled. Associated attestation - Mansi Cmoer MD - 03/30/2023 10:57 AM EDT Attending Physician Note I have personally interviewed and examined this patient with the Nurse Practitioner on 03/30/23. I have reviewed the history and examination and edited these in the note above. I agree with the medical decision and components of the note as edited by me. Patient is alert and oriented and VS stable. She presents with persistent AF with associated tachycardia mediated cardiomyopathy. We plan EPS RFA with CARTO 3 d mapping and WACA approach. We will also proceed with RA flutter ablation as well. The procedure was explained with indication, risks and benefits and she consents to proceed. Mansi Comer MD, [facility], [facility] Genevieve Jett Chair in Cardiac Electrophysiology Professor of Clinical Medicine documented [facility]2023 History and physical note Author Dr. Rangel [facility] October 20, 2022 5:16pm Note Date/Time October 20, 2022 10:31 am [facility] Medical Records Department [address] [place] [address] History & Physical Exam 10/20/22 1029 MR#: [id number] Acct: [id number] Name: BEULAH MCPHERSON Rep #:[id number] : [id number] 67 From: Barbie Valdez 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-C PCP: Dr. Yesi Clinton MD Status:[place] [facility] [place] Location: [facility] History and Physical Date of Admission: 10/27/22 Beulah Mcpherson is a 67 year old female who presents today for a cardiac catheterization. She has a history of atrial fibrillation, nonischemic cardiomyopathy, and hyperlipidemia. Patient was evaluated at [facility] in July 2021 for atrial fibrillation with RVR and reduced ejection fraction, 25%.? She was noted to be hypertensive. She was started on Coreg, Eliquis, Entresto, and Lasix. She underwent a repeat echocardiogram on 12/10/2021at showed ejection fraction of 30% and moderate to severe global hypokinesis of left ventricle.? Left atrium was noted be moderately enlarged.? She underwenta stress test on 12/12/2021 that was negative for ischemia. Patient underwent cardioversion on 01/08/2022.? Follow-up EKG on 01/14/2022 showed sinus rhythm withectopy.? She contacted our office on 01/23/2022 stating that she had returned to atrial fibrillation.? She has noted that she has had very labile blood pressure over the last few weeks. She also noted that she had one episode of where she felt like she might pass out.? She did not go to the ER at this time.? She called our office, we hadthought about decreasing her Coreg.? However it was felt that with her elevated BP reading that we would not do this.? She did go to the ER, initial cardiac work up was negative.? She is concerned with the labile BP readings.? She has been keeping herself hydrated. Intake Vital Signs See EMR Allergies See EMR Medications See EMR [facility] Medical History? Arthritis Atrial fibrillation with rapid ventricular response (08/01/21) COVID Foot drop, right Former smoker Health care maintenance HFrEF (heart failure with reduced ejection fraction) History of kidney stones Hyperlipidemia Kidney stones Lumbar radiculopathy Migraines Osteoarthritis (arthritis due to wear and tear of joints) Right knee pain Surgical History? H/O total hip arthroplasty History of cardioversion (01/08/22) History of laminectomy (~2015) History of total left knee replacement Family History? Father CVA (cerebral vascular accident) Colon cancer Social History? Smoking Status:? Former smoker how long ago did patient quit smoking:? 7 years ago alcohol intake:? never substance use type:? does not use caffeine:? Yes Type: coffee Number of servings: 1 ROS Const Const: Negative for fatigue, weakness, fever(s) or headache(s) Eyes Eyes: Negative for blind spots, loss of peripheral vision or transient loss of vision ENT ENT: Negative for headache(s), dizziness, tinnitus, Nosebleed/epistaxis or balance problems Cardio Chest Pain: No Palpitations: No Edema: None Muscle aches with walking: None Resp Respiratory: Negative for SOB with activity, SOB at rest, SOB orthopnea\SOB lying down or Cough GI GI: Negative nausea, vomiting, heartburn or vomiting blood/hematemesis : Negative for hematuria Musc Musc: Negative for muscle aches/ myalgia, muscle weakness, joint pain or balanceproblems Neuro Neuro: Negative for dizziness, lightheadedness, near syncope, syncope, orthostatic symptoms, headache(s) or weakness Guilherme Hematologic/Lymphatic: Negative for easy bleeding Endo Endo: Negative for fatigue Cardiology Exam Const Appearance: cooperative, healthy appearing, comfortable and no acute distress Nutritional Appearance: well nourished and obese Orientation: alert, awake and oriented x3 Head Head: normal to inspection Ears: hearing grossly normal bilaterally Nose: external nose normal Face and Sinus: face symmetric Mouth: oral mucosae normal Eyes General: appearance normal, both eyes and all related structures Eyelids: eyelids normal EOM: EOM intact bilaterally Neck Neck: normal visual inspection and no JVD Carotids: normal carotid upstroke Chest Chest inspection: normal inspection of the chest, symmetric chest movement and normal respiratory effort; Negative cough Auscultation: Bilateral: Clear to Auscultation Cardio Rate: regular rate Rhythm: regular rhythm Heart sounds: S1 normal and S2 normal; Negative rub, gallop or murmur GI GI: normal to inspection and obese Neuro General: patient alert, patient awake, patient oriented x3 and CN's II-XI intactbilaterally Skin Skin: no rashes or lesions noted Extremities Pulses: Normal: Right Posterior Tibial Pulse, Left Posterior Tibial Pulse, RightRadial Pulse and Left Radial Pulse Lower Extremity Edema: None: Bilateral Psych Psychological: normal affect Supplemental Info Supplemental Information Echocardiogram 10/01/2022: Interpretation Summary Normal LV size. Left ventricular systolic function is normal. The estimated ejection fraction is 55 %. Stage 1 diastolic dysfunction. Contrast injection was performed. Echocardiogram 04/20/2022: Normal LV size. The estimated ejection fraction is 40 %. There is mild global hypokinesis of the left ventricle. There is mild to moderate mitral annular calcification. Compared to previous study, the left ventricular systolic function has improved.. Echocardiogram from 12/10/2021: Interpretation Summary Normal LV size. The estimated ejection fraction is 30 %. There is moderate to severe global hypokinesis of the left ventricle. The left atrium is moderately enlarged. Contrast injection was performed. Compared to previous study, the left ventricular systolic function is the same. Echocardiogram from 08/01/2021: Interpretation Summary Normal LV size. The estimated ejection fraction is 25 %. Moderately severe global left ventricular systolic dysfunction. There is moderate to severe global hypokinesis of the left ventricle. Pulmonary artery systolic pressure is 28 mmHg. Contrast injection was performed. Stress test from 12/12/2021: Conclusion: Normal pharmacologic myocardial perfusion stress test. Preserved ejection fraction. Assessment and Plan Assessment and Plan (1) Atrial fibrillation: ?Status:?Acute ?Comment: [facility] 01/08/2022, 02/11/2022; ?Plan: Patient has a history of atrial fibrillation, with patients erratic heartbeats, a 30-day event monitor was obtained to evaluate her heart rate and rhythm. Patient's 30- day event monitor demonstrated 7 seconds of Ventricular Tachycardia with a rate of 221. She was asked to stop Flecainide at that time. She will proceed with a cardiac catheterization to further assess her coronary arteries. Depending on results, further recommendations will be made. (2) HFrEF (heart failure with reduced ejection fraction): ?Status:?Chronic ?Plan: Patient has a history of heart failure with reduced ejection fraction. Her mostrecent echocardiogram from 10/01/2022 demonstrated ejection fraction of 55%, stageI diastolic dysfunction, and no regional wall motion abnormality noted. At thistime, she will continue with her current medical therapy, along with monitoring for any concerning symptoms. (3) Ventricular Tachycardia: Patient's 30- day event monitor demonstrated 7 seconds of Ventricular Tachycardia with a rate of 221. She was asked to stop Flecainide at that time. She will proceed with a cardiac catheterization to further assess her coronary arteries. Depending on results, further recommendations will be made. 10/20/22 1052 <Electronically signed by Barbie LAURA> Cosigner Signature (if applicable): 10/20/22 9369 <Electronically signed by Skip Rangel MD> CC: VALENTÍN Tolbert; Dr. Skip Rangel MD; Dr. Yesi Clinton MD~ Signed [facility] Work Phone: [phone]) 238-436903-04-2022 Evaluation note* Diagnosis Onset Date Resolution Status Atrial fibrillation, new onset August 01, 2021 resolved CHF (congestive heart failure) resolved Elevated troponin I level re solved Atrial fibrillation acute HFrEF (heart failure with re duced ejection fraction) acute Hyperlipidemia chronic Atrial fibrillation acute HFrEF (heart failure with re duced ejection fraction) acute Lumbar radiculopathy chronic [facility] Work Phone: [phone]) 374-105603-04-2022 Evaluation note* Diagnosis Onset Date Resolution Status Atrial fibrillation, new onset August 01, 2021 resolved CHF (congestive heart failure) resolved Elevated troponin I level re solved Atrial fibrillation acute HFrEF (heart failure with re duced ejection fraction) acute Hyperlipidemia chronic Atrial fibrillation acute HFrEF (heart failure with re duced ejection fraction) acute Lumbar radiculopathy chronic Atrial fibrillation acute Generalized weakness acute HFrEF (heart failure with re duced ejection fraction) acute Candidiasis of breast noneac tive UTI (urinary tract infection) noneactive Orthostatic hypotension none active [facility] Work Phone: Chief complaint+Reason for visit Narrative* Chief Complaint POSSIBLE UTI LOCALISED SKIN MASS, LUMP, SWELLING, PAIN Complication of other artery following a procedure 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 SURGICAL CLEARANCE (SEE NOTES) open repair of iatrogenic right SFA open repair of iatrogenic right SFA Reason for Visit Malaise and fatigue Foul smelling urine Pseudoaneurysm of femoral artery following procedure History of cardiac radiofrequency ablation (RFA) Near syncope Palpitations Pseudoaneurysm of femoral artery following procedure Sleep apnea Pseudoaneurysm of femoral artery following procedure [facility] Work Phone: Evaluation note* Diagnosis Onset Date Resolution Status Atrial fibrillation acute HFrEF (heart failure with reduced ejection fraction) acute Hyperlipidemia chronic Atrial fibrillation acute HFrEF (heart failure with reduced ejection fraction) acute Lumbar radiculopathy chronic Atrial fibrillation acute HFrEF (heart failure with reduced ejection fraction) acute Generalized weakness resolve d Candidiasis of breast noneac tive UTI (urinary tract infection) noneactive Orthostatic hypotension none active Health care maintenance acut e HFrEF (heart failure with reduced ejection fraction) acute Generalized weakness resolve d UTI (urinary tract infection) noneactive [facility] Work Phone: Evaluation note* Diagnosis Onset Date Resolution Status Atrial fibrillation acute HFrEF (heart failure with reduced ejection fraction) acute Lumbar radiculopathy chronic Atrial fibrillation acute HFrEF (heart failure with reduced ejection fraction) acute Generalized weakness resolve d Candidiasis of breast noneac tive UTI (urinary tract infection) noneactive Orthostatic hypotension none active Health care maintenance acut e HFrEF (heart failure with reduced ejection fraction) acute Generalized weakness resolve d UTI (urinary tract infection) noneactive [facility] Work Phone: evaluation note* Diagnosis Onset Date Resolution Status Atrial fibrillation acute HFrEF (heart failure with reduced ejection fraction) chronic Generalized weakness resolve d Candidiasis of breast noneac tive UTI (urinary tract infection) noneactive Orthostatic hypotension none active Health care maintenance acut e HFrEF (heart failure with reduced ejection fraction) chronic Generalized weakness resolve d UTI (urinary tract infection) noneactive Atrial fibrillation acute HFrEF (heart failure with reduced ejection fraction) chronic Hyperlipidemia chronic Atrial fibrillation acute Atrial fibrillation acute Hypersomnolence acute HFrEF (heart failure with reduced ejection fraction) chronic Hyperlipidemia [facility] Work Phone: evaluation note* Diagnosis Onset Date Resolution Status Health care maintenance acut e HFrEF (heart failure with reduced ejection fraction) chronic Generalized weakness resolve d UTI (urinary tract infection) noneactive Atrial fibrillation acute HFrEF (heart failure with reduced ejection fraction) chronic Hyperlipidemia chronic Atrial fibrillation acute Atrial fibrillation acute Hypersomnolence acute HFrEF (heart failure with reduced ejection fraction) chronic Hyperlipidemia chronic BMI 35.0-35.9,adult acute Sleep apnea acute Atrial fibrillation acute Hypersomnolence acute HFrEF (heart failure with reduced ejection fraction) chronic Hyperlipidemia [facility] Work Phone: Evaluation note* Diagnosis Onset Date Resolution Status Atrial fibrillation acute HFrEF (heart failure with reduced ejection fraction) chronic Hyperlipidemia chronic Atrial fibrillation acute Atrial fibrillation acute Hypersomnolence acute HFrEF (heart failure with reduced ejection fraction) chronic Hyperlipidemia chronic BMI 35.0-35.9,adult acute Sleep apnea acute Atrial fibrillation acute Hypersomnolence acute HFrEF (heart failure with reduced ejection fraction) chronic Hyperlipidemia [facility] Work Phone: Evaluation note* Diagnosis Onset Date Resolution Status Atrial fibrillation acute BMI 35.0-35.9,adult acute Sleep apnea acute Primary osteoarthritis of right knee acute Atrial fibrillation acute Palpitations acute Tachycardia acute HFrEF (heart failure with reduced ejection fraction) chronic Hyperlipidemia [facility] Work Phone: Evaluation note* Diagnosis Onset Date Resolution Status Atrial fibrillation acute Palpitations acute Tachycardia acute HFrEF (heart failure with reduced ejection fraction) chronic Hyperlipidemia [facility] Work Phone: Evaluation note* Diagnosis Onset Date Resolution Status Atrial fibrillation acute Health care maintenance acut e HFrEF (heart failure with reduced ejection fraction) chronic Primary osteoarthritis of right knee chronic Atrial fibrillation acute HFrEF (heart failure with reduced ejection fraction) [facility] Work Phone: Evaluation note* Diagnosis Onset Date Resolution Status Atrial fibrillation acute Health care maintenance acut e HFrEF (heart failure with reduced ejection fraction) chronic Primary osteoarthritis of right knee chronic Atrial fibrillation acute HFrEF (heart failure with reduced ejection fraction) chronic Atrial fibrillation acute HFrEF (heart failure with reduced ejection fraction) [facility] Work Phone: Evaluation note* Diagnosis Onset Date Resolution Status Atrial fibrillation acute HFrEF (heart failure with reduced ejection fraction) chronic Atrial fibrillation acute HFrEF (heart failure with reduced ejection fraction) chronic Left shoulder pain acute Osteoarthritis (arthritis du e to wear and tear of joints) chronic Localized skin mass, lump, or swelling acute Cervical radiculopathy [facility] Work Phone: Evaluation note* Diagnosis Persistent atrial fibrillation Atrial fibrillation Typical atrial flutter Atrial flutter Persistent atrial fibrillation Atrial fibrillation Typical atrial flutter [facility] Persistent atrial fibrillation Atrial fibrillation Typical atrial flutter Atrial flutter [facility] Diagnosis Onset Date Resolution Status Atrial fibrillation acute HFrEF (heart failure with reduced ejection fraction) chronic Left shoulder pain acute Osteoarthritis (arthritis du e to wear and tear of joints) chronic Localized skin mass, lump, or swelling acute Cervical radiculopathy [facility] Work Phone: Evaluation note* Diagnosis Onset Date Resolution Status Atrial fibrillation acute HFrEF (heart failure with re duced ejection fraction) chronic Left shoulder pain acute Osteoarthritis (arthritis du e to wear and tear of joints) chronic Localized skin mass, lump, or swelling acute Cervical radiculopathy chron ic Common femoral artery injury acute History of cardiac radiofreq uency ablation (RFA) March 30, 2023 acute HFrEF (heart failure with re duced ejection fraction) chronic [facility] Work Phone: Evaluation note* Diagnosis Onset Date Resolution Status Atrial fibrillation acute HFrEF (heart failure with re duced ejection fraction) chronic Left shoulder pain acute Osteoarthritis (arthritis du e to wear and tear of joints) chronic Localized skin mass, lump, or swelling acute Cervical radiculopathy chron ic Common femoral artery injury acute History of cardiac radiofreq uency ablation (RFA) March 30, 2023 acute HFrEF (heart failure with re duced ejection fraction) chronic History of cardiac radiofreq uency ablation (RFA) March 30, 2023 acute Pseudoaneurysm following procedure acute Severe carpal tunnel syndrome of both wrists acute Swelling of joint of left shoulder acute Cervical radiculopathy chron ic [facility] Work Phone: Evaluation note* Diagnosis Onset Date Resolution Status Atrial fibrillation acute HFrEF (heart failure with re duced ejection fraction) chronic Left shoulder pain acute Osteoarthritis (arthritis du e to wear and tear of joints) chronic Localized skin mass, lump, or swelling acute Cervical radiculopathy chron ic Common femoral artery injury acute History of cardiac radiofreq uency ablation (RFA) March 30, 2023 acute HFrEF (heart failure with re duced ejection fraction) chronic History of cardiac radiofreq uency ablation (RFA) March 30, 2023 acute Pseudoaneurysm following procedure acute Severe carpal tunnel syndrome of both wrists acute Swelling of joint of left shoulder acute Cervical radiculopathy chron ic Foul smelling urine acute Malaise and fatigue acute [facility] Work Phone: Evaluation note* Diagnosis Onset Date Resolution Status Left shoulder pain acute Osteoarthritis (arthritis du e to wear and tear of joints) chronic Localized skin mass, lump, or swelling acute Cervical radiculopathy chron ic Common femoral artery injury acute History of cardiac radiofreq uency ablation (RFA) October 31st, 2023 acute HFrEF (heart failure with re duced ejection fraction) chronic History of cardiac radiofreq uency ablation (RFA) March 30, 2023 acute Pseudoaneurysm following procedure acute Severe carpal tunnel syndrome of both wrists acute Swelling of joint of left shoulder acute Cervical radiculopathy chron ic Foul smelling urine acute Malaise and fatigue acute [facility] Work Phone: Evaluation note* Diagnosis Paroxysmal atrial fibrillation Atrial fibrillation Hypertension, essential Unspecified essential hypertension [facility] Diagnosis Onset Date Resolution Status Admit Date Bilateral carpal tunnel syndrome acute February 23, 2025 10:23am S/P total knee arthroplasty acute February 23, 2025 10:23am [facility] Work [facility] Work [facility]: Hospital Discharge instructions Additional Instructions I spoke with Dr. Warner who is on-call for Dr. Rangel. He recommended discontinuing her flecainide and increasing your carvedilol to 25 mg p.o. twice daily as we discussed. He recommended following up with the cardiology office on Wednesday.[facility] Work Phone: Progress note Author Glen Miguel [facility] Note Date/Time February 23, 2025 11:20am [facility] [address] [place] [address] OFFICE VISIT Date of Service: 02/23/25 MR#: [id number] Acct: [id number] Name: BEULAH MCPHERSON Rep #: [id number] : 1955 Provider: Dr. Karel Miguel, Age/Sex: 69/F [place] [facility] [place] Status: Signed Intake Vital Signs 04/18/24 13:17 Height 5 ft 7 in Intake Visit Reasons: RIGHT KNEE Chief Complaint: 1 year post op Accompanied by: Self Is patient in pain?: No Allergies piperacillin (From Zosyn) Allergy (Verified 02/23/25 10:33) Rash tazobactam (From Zosyn) Allergy (Verified 02/23/25 10:33) Rash amiodarone Adverse Reaction (Intermediate, Verified 02/23/25 10:33) Lightheaded, feeling of impending doom diltiazem Adverse Reaction (Mild, Verified 02/23/25 10:33) edema Medications ?Medication ?Instructions ?Recorded ?Confirmed ?Type Handicap Placard #1 ea 09/01/21 05/15/24 Rx miconazole nitrate 2 % topical 1 applic topical BID TN N skin 02/03/22 02/23/25 History powder acetaminophen 500 mg tablet 1,000 mg (2 x 500 mg) PO Q 6H #100 02/23/24 02/23/25 Rx tabs apixaban 5 mg tablet (Eliquis) 5 mg PO BID BLOOD THINN ER #60 tabs 04/18/24 02/23/25 Rx sacubitril 24 mg-valsartan 26 mg 1 tab PO BID HEART #6 0 tabs 04/18/24 02/23/25 Rx tablet (Entresto) Handicap Placard #1 ea 04/19/24 05/15/24 Rx metoprolol tartrate 50 mg tablet 50 mg PO BID BP #180 tabs 08/16/24 02/23/25 Rx Have you fallen in the past year?: No PFSH Medical History Borderline type 2 diabetes mellitus Loose, teeth Wears glasses Post-menopausal Ambulates with cane Fatty liver Anemia Excessive bleeding Back pain Sleep apnea Leg cramps History of pain when walking History of echocardiogram History of stress test Hypertension Cardiology follow-up encounter History of CHF (congestive heart failure) History of atrial fibrillation UTI (urinary tract infection) Malaise and fatigue Cervical radiculopathy Foot drop, right Right knee pain Health care maintenance Lumbar radiculopathy History of kidney stones Atrial fibrillation with rapid ventricular response (08/01/21) HFrEF (heart failure with reduced ejection fraction) Hyperlipidemia Kidney stones Former smoker Migraines COVID Osteoarthritis (arthritis due to wear and tear of joints) Arthritis Surgical History History of tooth extraction History of total right hip replacement Hx of surgical procedure History of cardiac radiofrequency ablation (RFA) (03/30/23) Hx of cardiac catheterization (~10/27/22) History of cardioversion (01/08/22) History of laminectomy (~2016) History of total left knee replacement H/O total hip arthroplasty Family History Father CVA (cerebral vascular accident) Colon cancer Social History Smoking Status: Former smoker how long ago did patient quit smokin years ago alcohol intake: never substance use type: does not use caffeine: Yes Type: coffee Number of servings: 1 HPI RIGHT KNEE Details: This documentation accurately reflects the service provided and the decisions made by me, Dr. Glen Miguel, DO 02/23/25 0819. Part of today?s visit was documented by Alondra Brown RN, acting as scribe. BEULAH MCPHERSON is a 69 year old F here today for 1 year post-op right TKA dos: 02/22/24. She reports doing well. She denies pain in her knee. She occasionally will have an achy pain that is dependent on activity. She denies issues doing any of her ADL's. She reports an ongoing issue with bilateral carpal tunnel thathas progressively been getting worse over the last year. Patient has been experiencing carpal tunnel syndrome, numbness tingling and burning in all but the fifth digits. The right hand is worse than the left. She is LHD. She gets numbness/tingling in both hands except in the pinky finger. Shedoes wear braces at night for a year now. At times she will have symptoms up past the wrist and goes up to the elbow. She has had symptoms up to her shoulders at time. Ortho Exam General General: Yes no acute distress and Yes well groomed Neurologic: Yes alert and Yes oriented x3 Psychologic: Yes reasonable and appropriate Right Wrist/Hand Skin/Wound: Yes CDI, No Swelling, No Ecchymosis, Yes nail intact and Yes capillary refill normal Right Wrist: Yes Durken's Test, Tinel's and Phalen's WRIST: supination 80 pronation full wrist EXT 82 wrist FLEX 60 no atrophy transverse scar on right volar wrist from prior tendon repair hypertrophy of DIP joints Left Wrist/Hand Skin/Wound: Yes CDI, No Swelling and No Ecchymosis Left Wrist: Yes Durken's Test and Yes Phalen's; No Tinel's WRIST: no atrophy supination 80 hypertrophy of DIP joints pronation full wrist EXT 82 wrist FLEX 60 + Phalen's Right Knee Skin/Wound: Yes CDI, No erythema, No ecchymosis and No swelling KNEE: no joint effusion full EXT FLEX 125 Supplemental Info 04/03/2024 x-ray right knee: Status post press-fit total knee arthroplasty 02/22/2024 right total knee arthroplasty: Dr. Miguel 02/11/2024 x-ray right hip: Status post total hip arthroplasty there is no sign of hardware failure 06/09/2022 x-ray right knee: Severe end stage arthrosis [id number] there is lateral subluxation of the tibia joint space collapse large bone spurs multiple subchondral cystic changes femur and tibia subchondral Coding Level of Care Code Off vis,est,level 4 Diagnoses Bilateral carpal tunnel syndrome G56.03 Status post total right knee replacement Z96.651 Laterality: right Assessment and Plan Assessment and Plan (1) Bilateral carpal tunnel syndrome: Status: Acute (2) S/P total knee arthroplasty: Status: Acute Qualifiers: Laterality: right Qualified Code(s): Z96.651 - Presence of right artificial knee joint Orders: Orders Knee 3 Views Today Z96.641 - Presence of right artificial hip joint NCS and/or EMG - Bilateral Upper Today G56.03 - Carpal tunnel syndrome, bilateral upper limbs Plan Patient is here for 1 year post-op right TKA. I obtained and reviewed right kneex-rays today in the clinic and explained her hardware maintains good positioningand do not have any concerns. As for the bilateral carpal tunnel symptoms that she is experiencing I do recommend that we obtain a bilateral upper extremity EMG study. After she gets this study done we can discuss proceeding with a carpal tunnel release surgical procedure. Follow up after EMG study to go over the results or sooner if pain, swelling, numbness or associated symptoms, or concerns develop. All questions answered. Patient in agreement of plan. Clinical Quality Measures Falls Risk Screening/Assistive Devices Have you fallen in the past year?: No 02/23/25 9757 <Electronically signed by Glen powers DO> Date _ Glen Randall Signature: Date (if applicable) CC: ~ [facility] Work Phone: Reason for referral (narrative)No reason for referral information available[facility] Work Phone: Summary Purpose Family History No Family History Records Found Relationship Condition Age at Onset Recorded Date/T cecile father Cerebrovascular accident (CVA) Unknown Malignant neoplasm of colon Unknown Advance Directives No Advanced Directives Records Found Advance Directive Response Recorded Date/ Time Living Will No November 18, 2021 10:02pm Power of Online Retailer No November 18 10:02pm Advance Directive Response Recorded Date/ Time Living Will No December 20, 2021 10:45am Power of Online Retailer No December 20 10:45am Advance Directive Response Recorded Date/ Time Advance Directives No January 08, 2022 10:22am Living Will No February 11, 2022 10:18am Power of Online Retailer No January 10:18am Advance Directive Response Recorded Date/ Time Advance Directives No January 08, 2022 10:22am Living Will No April 04 11:10am Power of Online Retailer No April 04, 2022 11:10am Advance Directive Response Recorded Date/ Time Advance Directives No January 08, 2022 9:22am Living Will No April 04 10:10am Power of Online Retailer No April 04, 2022 10:10am Advance Directive Response Recorded Date/ Time Advance Directives No January 08, 2022 10:22am Living Will No September 16, 2022 4:27pm Power of Online Retailer No September 16 4:27pm Advance Directive Response Recorded Date/ Time Advance Directives No October 27 10:33am Living Will No October 27, 2022 1 0:33am Power of Online Retailer No October 27, 2022 10:33am Advance Directive Response Recorded Date/ Time Advance Directives No May 30th, 202 3 10:33am Living Will No February 25, 2023 5:18pm Power of Online Retailer No January 5:18pm Latest Code Status on File Code Status Date Activated Date Inactivated Comments Full Code 03/30/2023 4:40 PM Advance Directive Response Recorded Date/ Time Advance Directives No October 27 3 9:33am Living Will No February 25, 2023 4:18pm Power of Online Retailer No January 4:18pm Advance Directive Response Recorded Date/ Time Advance Directives No October 27 3 10:33am Living Will No September 07, 2023 10:25am Power of Online Retailer No September 06 4 10:25am Advance Directive Response Recorded Date/ Time Advance Directives No October 27 3 10:33am Chief Complaint and Reason for Visit Chief Complaint AFIB RVR AFIB RVR AFIB RVR AFIB RVR AFIB RVR Amb Documentation 2 WK 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 3 M FU DYSPNEA *JUAN CARLOS* REDUCED EF, NEW A-FIB REDUCED EF, NEW A-FIB Reason for Visit Atrial fibrillation HFrEF (heart failure with reduced ejection fraction) Hyperlipidemia Atrial fibrillation HFrEF (heart failure with reduced ejection fraction) Lumbar radiculopathy Atrial fibrillation HFrEF (heart failure with reduced ejection fraction) Generalized weakness Candidiasis of breast UTI (urinary tract infection) Orthostatic hypotension Health care maintenance HFrEF (heart failure with reduced ejection fraction) Generalized weakness UTI (urinary tract infection) Chief Complaint 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, 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, 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 SE NT WEAKNESS [facility] 3 M FU DYSPNEA *JUAN CARLOS* REDUCED EF, NEW A-FIB REDUCED EF, NEW A-FIB right flank Reason for Visit Atrial fibrillation HFrEF (heart failure with reduced ejection fraction) Lumbar radiculopathy Atrial fibrillation HFrEF (heart failure with reduced ejection fraction) Generalized weakness Candidiasis of breast UTI (urinary tract infection) Orthostatic hypotension Health care maintenance HFrEF (heart failure with reduced ejection fraction) Generalized weakness UTI (urinary tract infection) Chief Complaint [facility] FU [place] 3 M FU DYSPNEA *JUAN CARLOS* REDUCED EF, NEW A-FIB REDUCED EF, NEW A-FIB right flank 3 M FU A-FIB A-FIB A-FIB A-FIB fu EKG s/p Cardioversion 2 M FU PALPITATIONS Reason for Visit Atrial fibrillation HFrEF (heart failure with reduced ejection fraction) Generalized weakness Candidiasis of breast UTI (urinary tract infection) Orthostatic hypotension Health care maintenance HFrEF (heart failure with reduced ejection fraction) Generalized weakness UTI (urinary tract infection) Atrial fibrillation HFrEF (heart failure with reduced ejection fraction) Hyperlipidemia Atrial fibrillation Atrial fibrillation Hypersomnolence HFrEF (heart failure with reduced ejection fraction) Hyperlipidemia Chief Complaint 3 M FU DYSPNEA *JUAN CARLOS* REDUCED EF, NEW A-FIB REDUCED EF, NEW A-FIB right flank 3 M FU A-FIB A-FIB A-FIB A-FIB fu EKG s/p Cardioversion 2 M FU PALPITATIONS Post DCCV ekg LPriscila HYPERSOMNIA sleep consult 2 M FU GERARD; AUTO CPAP *INVENTORY TAGGED Reason for Visit [facility] maintena nce HFrEF (heart failure with reduced ejection fraction) Generalized weakness UTI (urinary tract infection) Atrial fibrillation HFrEF (heart failure with reduced ejection fraction) Hyperlipidemia Atrial fibrillation Atrial fibrillation Hypersomnolence HFrEF (heart failure with reduced ejection fraction) Hyperlipidemia BMI 35.0-35.9,adult Sleep apnea Atrial fibrillation Hypersomnolence HFrEF (heart failure with reduced ejection fraction) Hyperlipidemia Chief Complaint DYSPNEA *JUAN CARLOS* REDUCED EF, NEW A-FIB REDUCED EF, NEW A-FIB right flank 3 M FU A-FIB A-FIB A-FIB A-FIB fu EKG s/p Cardioversion 2 M FU PALPITATIONS Post DCCV ekg L.Lorson HYPERSOMNIA sleep consult 2 M FU GERARD; AUTO CPAP *INVENTORY TAGGED E ORDER fatigue Reason for Visit Atrial fibrillation HFrEF (heart failure with reduced ejection fraction) Hyperlipidemia Atrial fibrillation Atrial fibrillation Hypersomnolence HFrEF (heart failure with reduced ejection fraction) Hyperlipidemia BMI 35.0-35.9,adult Sleep apnea Atrial fibrillation Hypersomnolence HFrEF (heart failure with reduced ejection fraction) Hyperlipidemia Chief Complaint REDUCED EF, NEW A-FI B REDUCED EF, NEW A-FIB right flank 3 M FU A-FIB A-FIB A-FIB A-FIB fu EKG s/p Cardioversion 2 M FU PALPITATIONS Post DCCV ekg L.Lorson HYPERSOMNIA sleep consult 2 M FU GERARD; AUTO CPAP *INVENTORY TAGGED E ORDER fatigue Reason for Visit Atrial fibrillation HFrEF (heart failure with reduced ejection fraction) Hyperlipidemia Atrial fibrillation Atrial fibrillation Hypersomnolence HFrEF (heart failure with reduced ejection fraction) Hyperlipidemia BMI 35.0-35.9,adult Sleep apnea Atrial fibrillation Hypersomnolence HFrEF (heart failure with reduced ejection fraction) Hyperlipidemia Chief Complaint 3 M FU A-FIB A-FIB A-FIB A-FIB fu EKG s/p Cardioversion 2 M FU PALPITATIONS Post DCCV ekg L.Lorson HYPERSOMNIA sleep consult 2 M FU GERARD; AUTO CPAP *INVENTORY TAGGED E ORDER fatigue CHF evaluation to assess QRS interval PER [facility] Reason for Visit Atrial fibrillation HFrEF (heart failure with reduced ejection fraction) Hyperlipidemia Atrial fibrillation Atrial fibrillation Hypersomnolence HFrEF (heart failure with reduced ejection fraction) Hyperlipidemia BMI 35.0-35.9,adult Sleep apnea Atrial fibrillation Hypersomnolence HFrEF (heart failure with reduced ejection fraction) Hyperlipidemia Chief Complaint 3 M FU XRAY right knee JAW PAIN, BP CHANGES See ER note from 09/16 ATRIAL FIB WITH RAPID VENTRICULAR RESPONSE GERARD, A-FIB/FLUTTER Reason for Visit Atrial fibrillation BMI 35.0-35.9,adult Sleep apnea Primary osteoarthritis of right knee Atrial fibrillation Palpitations Tachycardia HFrEF (heart failure with reduced ejection fraction) Hyperlipidemia Chief Complaint JAW PAIN, BP CHANGES See ER note from 09/16 ATRIAL FIB WITH RAPID VENTRICULAR RESPONSE GERARD, A-FIB/FLUTTER NEAR SYNCOPY NEAR SYNCOPY Reason for Visit Atrial fibrillation Palpitations Tachycardia HFrEF (heart failure with reduced ejection fraction) Hyperlipidemia Chief Complaint palpitations 6 M FU 6 wk fu W [facility] DIZZINESS Reason for Visit Atrial fibrillation Health care maintenance HFrEF (heart failure with reduced ejection fraction) Primary osteoarthritis of right knee Atrial fibrillation HFrEF (heart failure with reduced ejection fraction) Chief Complaint 6 M FU 6 wk fu W [facility] DIZZINESS 3 M FU AFIB Amb Documentation Reason for Visit Atrial fibrillation Health care maintenance HFrEF (heart failure with reduced ejection fraction) Primary osteoarthritis of right knee Atrial fibrillation HFrEF (heart failure with reduced ejection fraction) Atrial fibrillation HFrEF (heart failure with reduced ejection fraction) Chief Complaint 6 wk fu W [facility] DIZZINESS 3 M FU AFIB Amb Documentation LUMP ON SHOULDER LUMP LEFT SHOULDER ACUTE - LUMP ON SHOULDER Localized swelling, mass and lump, unspecified Reason for Visit Atrial fibrillation HFrEF (heart failure with reduced ejection fraction) Atrial fibrillation HFrEF (heart failure with reduced ejection fraction) Left shoulder pain Osteoarthritis (arthritis due to wear and tear of joints) Localized skin mass, lump, or swelling Cervical radiculopathy Chief Complaint DIZZINESS 3 M FU AFIB Amb Documentation LUMP ON SHOULDER LUMP LEFT SHOULDER ACUTE - LUMP ON SHOULDER Localized swelling, mass and lump, unspecified Reason for Visit Atrial fibrillation HFrEF (heart failure with reduced ejection fraction) Left shoulder pain Osteoarthritis (arthritis due to wear and tear of joints) Localized skin mass, lump, or swelling Cervical radiculopathy Chief Complaint DIZZINESS 3 M FU AFIB Amb Documentation LUMP ON SHOULDER LUMP LEFT SHOULDER ACUTE - LUMP ON SHOULDER Localized swelling, mass and lump, unspecified 6 W FU RIGHT ARTERY INJURY CONSULT-PSEUDOANEURYSM Reason for Visit Atrial fibrillation HFrEF (heart failure with reduced ejection fraction) Left shoulder pain Osteoarthritis (arthritis due to wear and tear of joints) Localized skin mass, lump, or swelling Cervical radiculopathy Common femoral artery injury History of cardiac radiofrequency ablation (RFA) HFrEF (heart failure with reduced ejection fraction) Chief Complaint DIZZINESS 3 M FU AFIB Amb Documentation LUMP ON SHOULDER LUMP LEFT SHOULDER ACUTE - LUMP ON SHOULDER Localized swelling, mass and lump, unspecified 6 W FU RIGHT ARTERY INJURY CONSULT-PSEUDOANEURYSM RIGHT ARTERY INJURY CERVICAL SPINE Room 1 Reason for Visit Atrial fibrillation HFrEF (heart failure with reduced ejection fraction) Left shoulder pain Osteoarthritis (arthritis due to wear and tear of joints) Localized skin mass, lump, or swelling Cervical radiculopathy Common femoral artery injury History of cardiac radiofrequency ablation (RFA) HFrEF (heart failure with reduced ejection fraction) History of cardiac radiofrequency ablation (RFA) Pseudoaneurysm following procedure Severe carpal tunnel syndrome of both wrists Swelling of joint of left shoulder Cervical radiculopathy Chief Complaint DIZZINESS 3 M FU AFIB Amb Documentation LUMP ON SHOULDER LUMP LEFT SHOULDER ACUTE - LUMP ON SHOULDER Localized swelling, mass and lump, unspecified 6 W FU RIGHT ARTERY INJURY CONSULT-PSEUDOANEURYSM RIGHT ARTERY INJURY CERVICAL SPINE Room 1 POSSIBLE UTI Reason for Visit Atrial fibrillation HFrEF (heart failure with reduced ejection fraction) Left shoulder pain Osteoarthritis (arthritis due to wear and tear of joints) Localized skin mass, lump, or swelling Cervical radiculopathy Common femoral artery injury History of cardiac radiofrequency ablation (RFA) HFrEF (heart failure with reduced ejection fraction) History of cardiac radiofrequency ablation (RFA) Pseudoaneurysm following procedure Severe carpal tunnel syndrome of both wrists Swelling of joint of left shoulder Cervical radiculopathy Foul smelling urine Malaise and fatigue Chief Complaint DIZZINESS 3 M FU AFIB Amb Documentation LUMP ON SHOULDER LUMP LEFT SHOULDER ACUTE - LUMP ON SHOULDER Localized swelling, mass and lump, unspecified 6 W FU RIGHT ARTERY INJURY CONSULT-PSEUDOANEURYSM RIGHT ARTERY INJURY CERVICAL SPINE Room 1 POSSIBLE UTI LOCALISED SKIN MASS, LUMP, SWELLING, PAIN Reason for Visit Atrial fibrillation HFrEF (heart failure with reduced ejection fraction) Left shoulder pain Osteoarthritis (arthritis due to wear and tear of joints) Localized skin mass, lump, or swelling Cervical radiculopathy Common femoral artery injury History of cardiac radiofrequency ablation (RFA) HFrEF (heart failure with reduced ejection fraction) History of cardiac radiofrequency ablation (RFA) Pseudoaneurysm following procedure Severe carpal tunnel syndrome of both wrists Swelling of joint of left shoulder Cervical radiculopathy Foul smelling urine Malaise and fatigue Chief Complaint DIZZINESS 3 M FU AFIB Amb Documentation LUMP ON SHOULDER LUMP LEFT SHOULDER ACUTE - LUMP ON SHOULDER Localized swelling, mass and lump, unspecified 6 W FU RIGHT ARTERY INJURY CONSULT-PSEUDOANEURYSM RIGHT ARTERY INJURY CERVICAL SPINE Room 1 POSSIBLE UTI LOCALISED SKIN MASS, LUMP, SWELLING, PAIN Complication of other artery following a procedure Reason for Visit Atrial fibrillation HFrEF (heart failure with reduced ejection fraction) Left shoulder pain Osteoarthritis (arthritis due to wear and tear of joints) Localized skin mass, lump, or swelling Cervical radiculopathy Common femoral artery injury History of cardiac radiofrequency ablation (RFA) HFrEF (heart failure with reduced ejection fraction) History of cardiac radiofrequency ablation (RFA) Pseudoaneurysm following procedure Severe carpal tunnel syndrome of both wrists Swelling of joint of left shoulder Cervical radiculopathy Foul smelling urine Malaise and fatigue Chief Complaint LUMP ON SHOULDER LUMP LEFT SHOULDER ACUTE - LUMP ON SHOULDER Localized swelling, mass and lump, unspecified 6 W FU RIGHT ARTERY INJURY CONSULT-PSEUDOANEURYSM RIGHT ARTERY INJURY CERVICAL SPINE Room 1 POSSIBLE UTI LOCALISED SKIN MASS, LUMP, SWELLING, PAIN Complication of other artery following a procedure I72.4 Aneurysm of artery of lower extremity Reason for Visit Left shoulder pain Osteoarthritis (arthritis due to wear and tear of joints) Localized skin mass, lump, or swelling Cervical radiculopathy Common femoral artery injury History of cardiac radiofrequency ablation (RFA) HFrEF (heart failure with reduced ejection fraction) History of cardiac radiofrequency ablation (RFA) Pseudoaneurysm following procedure Severe carpal tunnel syndrome of both wrists Swelling of joint of left shoulder Cervical radiculopathy Foul smelling urine Malaise and fatigue Chief Complaint Admit Date RIGHT KNEE February 23, 2025 10:23am room 6 February 23, 2025 10:39am Reason for Visit Admit Date Bilateral carpal tunnel syndrome Septemb er 2024 10:23am S/P total knee arthroplasty February 232024 10:23am Reason for Referral Specialty Diagnoses / Procedures Referred By Marnie michael Referred To Contact Diagnoses Persistent atrial fibrillation Typical atrial flutter Procedures MOBILE CARDIAC TELEMETRY Ave Serna, GIRMA-SHOWROOM EXECUTIVE DIRECTOR [address] [place] [id number] Referral ID Status Reason Start Date Expiration Date V isits Requested Visits Authorized [id number] New Request 03/30/2023 04/23/2024 1 1 Specialty Diagnoses / Procedures Referred By Marnie michael Referred To Contact Diagnoses Persistent atrial fibrillation Typical atrial flutter Procedures CT CARDIAC PULMONARY VENOGRAM TN CHG CT HEART CONTRAST EVAL CARDIAC STRUCT/MORPH Mansi Comer MD [address] [place] [address] Referral ID Status Reason Start Date Expiration Date V isits Requested Visits Authorized [id number] New Request 01/16/2023 02/10/2024 1 1 Specialty Diagnoses / Procedures Referred By Marnie t Referred To Contact Diagnoses Paroxysmal atrial fibrillation Hypertension, essential Procedures ECHOCARDIOGRAM LIMITED/FOLLOWUP TN ECHO HEART XTHORACIC,LIMITED TN DOPPLER ECHO HEART,LIMITED,F/U TN DOPPLER COLOR FLOW VELOCITY MAP Thor Bain, FUNDRAISING DIRECTOR-SHOWROOM EXECUTIVE DIRECTOR [id number] [place] [address] Referral ID Status Reason Start Date Expiration Date V isits Requested Visits Authorized [id number] New Request 07/29/2023 08/22/2024 1 1 Additional Source Comments INFORMATION SOURCE (unrecogn ized section and content) DATE CREATED AUTHOR 11/26/2017 [facility] DATE CREATED AUTHOR AUTHOR'S ORGANIZ ATION 08/14/2023 [facility] DATE CREATED AUTHOR AUTHOR'S ORGANIZ ATION 10/31/2023 [facility] DATE CREATED AUTHOR AUTHOR'S ORGANIZ ATION 05/16/2024 [facility] DATE CREATED AUTHOR AUTHOR'S ORGANIZ ATION 04/12/2025 [facility] Goals (unrecognized section and content) Goals may be documented in a n alternate sectionGoals may be documented in an alternate sectionGoals may be documented in an alternate sectionGoals may be documented in an alternate sectionGoals may be documented in an alternate sectionGoals may be documented in an alternate sectionGoals may be documented in an alternate sectionGoals may be documented in an alternate sectionGoals may be documented in an alternate sectionGoals may be documented in an alternate sectionGoals may be documented in an alternate sectionGoals may be documented in an alternate sectionGoals may be documented in an alternate sectionGoals may be documented in an alternate sectionGoals may be documented in an alternate sectionGoals may be documented in an alternate sectionGoals may be documented in an alternate sectionGoals may be documented in an alternate sectionGoals may be documented in an alternate sectionGoals may be documented in an alternate sectionGoals may be documented in an alternate section Care Teams (unrecognized sec tion and content) Team Status: Active Member Role Status Dates Dr. Bean Brower DO Family Provider Active Dr. Yesi Clinton MD Primary Care Provider Active Team Status: Inactive Member Role Status Dates Dr. Yesi Clinton MD Primary Care Provider, Refer ring Provider Active Dr. Matthew Montgomery MD Attending Provider Active Team Status: Inactive Member Role Status Dates Dr. Yesi Clinton MD Primary Care Provider, Refer ring Provider Active Dr. Glen Miguel DO Attending Provider Active Team Status: Inactive Member Role Status Dates Dr. Yesi Clinton MD Primary Care Provider Active Dr. Skip Rangel MD Attending Provider Active Team Status: Inactive Member Role Status Dates Dr. Yesi Clinton MD Primary Care Provider, Refer ring Provider Active Rhona Morrissey PA, PA Attending Provider Active Team Status: Active Member Role Status Dates Dr. Yesi Clinton MD Primary Care Provider Active Dr. Skip Rangel MD Attending Provider Active Team Status: Inactive Member Role Status Dates Dr. Yesi Clinton MD Primary Care Provider Active Dr. Igor Parry DO Attending Provider, Emergency Provider Active Team Status: Inactive Member Role Status Dates Dr. Yesi Clinton MD Primary Care Provider Active Rhona Morrissey PA, PA Attending Provider, Referr ing Provider Active Team Status: Active Member Role Status Dates Dr. Yesi Clinton MD Primary Care Provider Active Rhona Morrissey PA, PA Attending Provider Active Dr. Skip Rangel MD Referring Provider Active Team Status: Active Member Role Status Dates Dr. Yesi Clinton MD Primary Care Provider Active Dr. Skip Rangel MD Other Provider Active Barbie Tolbert 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, 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-C Attending Provider Active Team Status: Inactive Member Role Status Dates Dr. Yesi Clinton MD Primary Care Provider Active Dr. Skip Rangel MD Attending Provider, Referring Pro vider Active Team Status: Inactive Member Role Status Dates Dr. Yesi Clinton MD Primary Care P roshayne, Attending Provider, Referring Provider Active Team Status: Inactive Member Role Status Dates Dr. Yesi Clinton MD Primary Care Provider, Refer ring Provider Active Ashkan Remy 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, 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-C Attending Provider Active Team Status: Inactive Member Role Status Dates Dr. Yesi Clinton MD Primary Care Provider Active Dr. Ansley Ponce DO Attending Provider, Emergency Pro vider Active Team Status: Inactive Member Role Status Dates Dr. Yesi Clinton MD Primary Care Provider Active Dr. Doug Barone , Emergency Provider Active Team Status: Active Member Role Status Dates Dr. Yesi Clinton MD Primary Care Provider Active Ashkan Remy 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, 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-C Attending Provider Active Team Status: Inactive Member Role Status Dates Dr. Yesi Clinton MD Primary Care Provider Active Ashkan Remy 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, 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-C Attending Provider, Referring Pro vider Active Team Status: Inactive Member Role Status Dates Dr. Yesi Clinton MD Primary Care Provider Active Dr. Doug Barone DO Attending Provider, Emergency P rovider Active Team Status: Inactive Member Role Status Dates Dr. Yesi Clinton MD Primary Care Provider, Refer ring Provider Active Kwaku GRAHAM PA Attending Provider Active Team Status: Inactive Member Role Status Dates Dr. Yesi Clinton MD Primary Care Provider Active Kwaku GRAHAM PA Attending Provider, Referring Provi jareth Active Team Status: Active Member Role Status Dates Dr. Yesi Clinton MD Primary Care P rovider, Attending Provider, Referring Provider Active Carrier Washer Relationship Specialty Start Date End Date Yesi Clinton MD [address] [id number] PCP - General Internal Medicine 10/27/22 Rhona Morrissey PA [address] [place] [address] Physician [employer] - Medical 10/27/22 Skip Rangel MD [address] [facility] [place] [address] Cardiovascular Disease 10/27/22 Carrier Washer Relationship Specialty Start Date End Date Yesi Clinton MD [address] [facility] [address] [place] [address] PCP - General Internal Medicine 10/27/22 Rhona Morrissey PA [address] [place] [place] [address] Physician [employer] - Medical 10/27/22 Skip Rangel MD [address] [facility] [place] [address] Cardiovascular Disease 10/27/22 Team Status: Active Member Role Status Dates Dr. Yesi Clinton MD Primary Care Provider Active Dr. Doug Nowak MD Attending Provider Active Team Status: Inactive Member Role Status Dates Dr. Yesi Clinton MD Primary Care Provider, Refer ring Provider Active GLADYS [place] Attending Provider Active Team Status: Active Member Role Status Dates Dr. Yesi Clinton MD Primary Care Provider Active Dr. Doug Nowak MD Attending Provider Active Ashkan Remy 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, 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-C Referring Provider Active Team Status: Inactive Member Role Status Dates Dr. Yesi Clinton MD Primary Care Provider, Refer ring Provider Active Dr. Mc Villaseñor MD Attending Provider Active Team Status: Inactive Member Role Status Dates Dr. Yesi Clinton MD Primary Care Provider Active GLADYS [place] Attending Provider, Referring Provid er Active Team Status: Active Member Role Status Dates Dr. Yesi Clinton MD Primary Care Provider Active Dr. Doug Nowak MD Attending Provider Active GLADYS [place] Referring Provider Active Team Status: Inactive Member Role Status Dates Dr. Yesi Clinton MD Primary Care Provider Active Dr. Mc Villaseñor MD Attending Provider, Referring Pr ovider Active Carrier Washer Relationship Specialty Start Date End Date Yesi Clinton MD [address] [facility] [address] [place] [address] PCP - General Internal Medicine 10/27/22 Rhona Morrissey PA [address] [place] [address] Physician [employer] - Medical 10/27/22 Skip Rangel MD [address] [place] [address] Cardiovascular Disease 10/27/22 Team Status: Inactive Member Role Status Dates Dr. Yesi Clinton MD Primary Care Provider, Refer ring Provider Active Dr. Doug Nowak MD Attending Provider Active Team Status: Inactive Member Role Status Dates Dr. Yesi Clinton MD Primary Care Provider, Refer ring Provider Active Dr. Sourav Jaramillo MD Attending Provider Active Team Status: Active Member Role Status Dates Dr. Yesi Clinton MD Primary Care Provider Active Dr. Doug Nowak MD Admit Provider, Att ending Provider, Referring Provider, Other Provider Active Ashkan Remy 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, 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-C Other Provider Active Team Status: Inactive Member Role Status Dates Dr. Yesi Clinton MD Primary Care Provider Active Dr. Doug Nowak MD Admit Provider, Att ending Provider, Referring Provider Active Ashkan Remy 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, 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-C Other Provider Active Team Status: Active Member Role/Relationship Status Dates Dr. Yesi Clinton MD Primary care physician Activ e Team Status: Inactive Member Role/Relationship Status Dates Dr. Yesi Clinton MD Primary care physician Activ e Start: February 23, 2025 End: February 23, 2025 Dr. Yesi Clinton MD Referring Provider Active Start: February 23, 2025 End: February 23, 2025 Dr. Glen Miguel DO Attending physician Active Start: February 23, 2025 End: February 23, 2025 Team Status: Inactive Member Role/Relationship Status Dates Dr. Yesi Clinton MD Primary care physician Activ e Start: February 23, 2025 End: February 23, 2025 Dr. Skip Rangel MD Attending physician Active Start: February 23, 2025 End: February 23, 2025 Reason for Visit (unrecogniz ed section and content) Specialty Diagnoses / Procedures Referred By Marnie t Referred To Contact Diagnoses Persistent atrial fibrillation Typical atrial flutter Persistent atrial fibrillation [I48.19] Typical atrial flutter [I48.3] Procedures TN COMPRE EP EVAL ABLTJ ATR FIB PULM VEIN ISOLATION TN COMPRE EP EVAL ABLTJ 3D MAPG TX SVT ABLATION SCHED INTERCARDIAC A-FIB TRANSEPTAL BY PULM VEIN ISOLATION W/EP EVAL (80671) ABLATION SCHED INTERCARDIAC A-FLUTTER ATRIAL/SVT W/EP EVAL PACING/HIS/ARRYTHMIA INDUCT (11245) Mansi Comer MD [address] [place] [id number] [facility] [address] [place] [address] Referral ID Status Reason Start Date Expiration Date Visits Re quested Visits Authorized [id number] 1 1 Specialty Diagnoses / Procedures Referred By Marnie michael Referred To Contact Diagnoses Paroxysmal atrial fibrillation Hypertension, essential Procedures ECHOCARDIOGRAM LIMITED/FOLLOWUP TN ECHO HEART XTHORACIC,LIMITED TN DOPPLER ECHO HEART,LIMITED,F/U TN DOPPLER COLOR FLOW VELOCITY MAP Thor Bain, FUNDRAISING DIRECTOR-SHOWROOM EXECUTIVE DIRECTOR [address] [place], [place] [id number] [place] [address] Referral ID Status Reason Start Date Expiration Date V isits Requested Visits Authorized [id number] New Request 07/29/2023 08/22/2024 1 1 Scheduled Active and Recently Administ ered Medications (unrecognized section and content) Medication Order 03/28/2023 03/29/2023 03/30/2023 apixaban (ELIQUIS) tablet 5 mg 5 mg, Oral, EVERY 12 HOURS, First dose on Wed03/30/23 at 1900, Until Discontinued, Due to the rapid onset of action of apixaban, no overlap is needed with other anticoagulants (e.g. enoxaparin, heparin)., Indications: Atrial Fibrillation, Post-op/Post-Proc 1911 (Given - Provid er: Tahira Rooney RN) aspirin chewable tablet 81 mg 81 mg, Oral, DAILY EVERY MORNING, First dose on Wed03/30/23 at 1900, Until Discontinued, Post-op/Post-Proc 1911 (Given - Provid er: Tahira Rooney RN) Metoprolol (LOPRESSOR) tablet 25 mg 25 mg, Oral, EVERY 12 HOURS, First dose on Wed03/30/23 at 2100, Until Discontinued 2100 (Canceled Entry - Provider: System Discharge - Comment: Automatically canceled at discontinue of medication order) Pantoprazole (PROTONIX) tablet DR 40 mg 40 mg, Oral, DAILY, First dose (after last modification) on Wed03/30/23 at 1730, Until Discontinued, Swallow whole; do not crush or chew., Indications: Prevention of esophageal injury after catheter ablation, Post-op/Post-Proc 1911 (Given - Provid er: Tahira Rooney RN) sacubitril-valsartan (ENTRESTO) 24-26 MG per tablet 1 tablet 1 tablet, Oral, 2 TIMES DAILY, First dose on Wed03/31/23 at 0900, Until Discontinued Continuous Medication Order 03/28/2023 03/29/2023 03/30/2023 Sodium chloride 0.9% IV solution 500 mL Intravenous, at 10 mL/hr, CONTINUOUS, Starting on Wed03/30/23 at 0830, Until Wed03/30/23 at 2029, KVO fluids, start the morning of procedure., Pre-op/Pre-Proc 0830 (Canceled Entry - Provider: System Discharge - Comment: Automatically canceled at discontinue of medication order) PRN Medication Order 03/28/2023 03/29/2023 03/30/2023 Acetaminophen (TYLENOL) tablet 975 mg 975 mg, Oral, EVERY 8 HOURS NEEDED, Starting on Wed03/30/23 at 1720, Until Wed03/30/23 at 2155, Moderate Pain, Maximum dose of acetaminophen is 4000 mg from all sources in 24 hours. 1909 (Given - Provid er: Tahira Rooney RN) HYDROmorphone (DILAUDID) injection 0.2 mg 0.2 mg, Intravenous, EVERY 10 MINUTES NEEDED, 10 doses, Starting on Wed03/30/23 at 0906, Until Wed03/30/23 at 2154, Moderate Pain, Severe Pain, May give a total of 2mg in PACU., Recovery 1634 (Given - Provid er: Trish Borges RN) HYDROmorphone (DILAUDID) injection 0.2 mg 0.2 mg, Intravenous, EVERY 2 HOURS NEEDED, Starting on Wed03/30/23 at 1639, Until Wed03/30/23 at 2154, Severe Pain, Post-op/Post-Proc Lidocaine (XYLOCAINE) 10 mg/mL injection (CANCELED) NEEDED, Starting on Wed03/30/23 at 1121, Until Wed03/30/23 at 1507, Intra-op/Intra-Proc 1121 (Given - Provid er: Karel Vizcaino MD) magnesium oxide (MAG-OX) tablet 800 mg 800 mg, Oral, ADMINISTER DIRECTED, Starting on Wed03/30/23 at 1639, Until Wed03/30/23 at 2154, See admin instructions, For Magnesium 1.6 - 2.0, give 800 mg of Magnesium oxide, Post-op/Post-Proc Magnesium sulfate 4 g in sterile water 50 ml premix IVPB 4 g, Intravenous, Administer over 4 Hours, ADMINISTER DIRECTED, Starting on Wed03/30/23 at 1639, Until Wed03/30/23 at 2154, Other, Magnesium Replacement Therapy, If Magnesium less than 1.6, give 4 g Magnesium Sulfate IVPB over 4 hours (may give over 1 hour if arrhythmias present)., Post-op/Post-Proc Ondansetron 4mg/2ml (ZOFRAN) injection 4 mg 4 mg, Intravenous, ONCE NEEDED, 1 dose, Starting on Wed03/30/23 at 0906, Until Wed03/30/23 at 2154, Nausea / Vomiting, FIRST line antiemetic, Do not administer within 6 hours of intra-operative dose., Recovery Ondansetron 4mg/2ml (ZOFRAN) injection 4 mg 4 mg, Intravenous, EVERY 4 HOURS NEEDED, Starting on Wed03/30/23 at 1639, Until Wed03/30/23 at 215, Nausea / Vomiting, Post-op/Post-Proc oxyCODONE (ROXICODONE) tablet 5 mg(Linked Group 1) 5 mg, Oral, EVERY 4 HOURS NEEDED, Starting on Wed03/30/23 at 1639, Until Wed03/30/23 at 2154, Moderate Pain, Severe Pain, PRN for Moderate Pain. Use for Severe Pain if IV not available for use as initial dose. Higher dose may be administred if lower dose was previously documented as ineffective and did not result in adverse effects (RR<10, decrease in level of consciousness)., Post-op/Post-Proc oxyCODONE HCl (ROXICODONE) tablet 10 mg(Linked Group 1) 10 mg, Oral, EVERY 4 HOURS NEEDED, Starting on Wed03/30/23 at 1639, Until Wed03/30/23 at 2154, Moderate Pain, Severe Pain, PRN for Moderate Pain. Use for Severe Pain if IV not available for use as initial dose. Higher dose may be administred if lower dose was previously documented as ineffective and did not result in adverse effects (RR<10, decrease in level of consciousness), Post-op/Post-Proc Potassium chloride (K-DUR) tablet ER 20 mEq 20 mEq, Oral, ADMINISTER DIRECTED, Starting on Wed03/30/23 at 1639, Until Wed03/30/23 at 2154, See admin instructions, If Cr 2.0 - 2.5 mg/dL For Potassium less than 3.6, give 20 mEq Potassium Chloride orally, recheck in AM. If Cr greater than 2.5 mg/dL contact physician/LIP for Potassium less than 3.6 for replacement orders. If potassium is low please administer magnesium first if indicated, Post-op/Post-Proc Potassium chloride (K-DUR) tablet ER 40-60 mEq 40-60 mEq, Oral, ADMINISTER DIRECTED, Starting on Wed03/30/23 at 1639, Until Wed03/30/23 at 2154, See admin instructions, If Cr less than 2.0 mg/dL 1. For Potassium 3.6 - 4.0, give 40 mEq of Potassium Chloride orally, recheck in the AM. 2. For Potassium less than 3.6, give 60 mEq Potassium Chloride orally, recheck in 8 hours. 3. If potassium is low please administer magnesium first if indicated., Post-op/Post-Proc Sodium chloride 0.9% IV solution Intravenous, at 1 mL/hr, CONTINUOUS NEEDED, Starting on Wed03/30/23 at 1639, Until Wed03/30/23 at 2155, See administration instructions, Per pressure bag for all transduced lines., Post-op/Post-Proc No Frequency Medication Order 03/28/2023 03/29/2023 03/30/2023 Sodium chloride 0.9% IV solution 1 dose, Starting on Wed03/30/23 at 0819, Until Wed03/31/23 at 0830, Created by cabinet override 0830 (Canceled Entry - Provider: System Discharge - Comment: Automatically canceled at discontinue of medication order) Linked Groups Order Group 1: oxyCODONE (ROXICODONE) tablet 5 mgJump to med 5 mg, Oral, EVERY 4 HOURS NEEDED, Starting on Wed03/30/23 at 1639, Until Wed03/30/23 at 2155, Moderate Pain, Severe Pain
PRN for Moderate Pain. Use for Severe Pain if IV not available for use as initial dose. Higher dose may be administred if lower dose was previously documented as ineffective and did not result in adverse effects (RR<10, decrease in level of consciousness).
Post-op/Post-Proc Or oxyCODONE HCl (ROXICODONE) tablet 10 mgJump to med 10 mg, Oral, EVERY 4 HOURS NEEDED, Starting on Wed03/30/23 at 1639, Until Wed03/30/23 at 2155, Moderate Pain, Severe Pain
PRN for Moderate Pain. Use for Severe Pain if IV not available for use as initial dose. Higher dose may be administred if lower dose was previously documented as ineffective and did not result in adverse effects (RR<10, decrease in level of consciousness)
Post-op/Post-Proc FOR RECORDS PERTAINING TO PATIENTS WHO ARE OR HAVE BEEN ENROLLED IN A CHEMICAL DEPENDENCY/SUBSTANCEABUSE PROGRAM, SOME INFORMATION MAY BE OMITTED. This clinical summary was aggregated from multiple sources. Caution should be exercised in using it in the provision of clinical care. This summary normalizes information from multiple sources, and as a consequence, information in this document may materially change the coding, format and clinical context of patient data. In addition, data may be omitted in some cases. CLINICAL DECISIONS SHOULD BE BASED ON THE PRIMARY CLINICAL RECORDS. [email or web address] [facility]. provides no warranty or guarantee of the accuracy or completeness of information in this document.
--- NOTE | 2025-04-18 14:47 | NEURO ---
NCS and/or EMG Patient Report Ordering Doctor: Glen Miguel DATE OF SERVICE: 04/18/25 Susan presents complaints of numbness and tingling in both hands. Electrodiagnostic findings: Median motor nerve demonstrates prolonged distal latency on the right side with normal amplitude and conduction velocity. Left median motor nerve demonstrates prolonged latency with reduced amplitude and normal conduction velocity. Right ulnar motor response within normal limits. Left ulnar motor response demonstrates a nearly 40% drop in conduction velocity across the elbow. Normal median and ulnar F?waves. Absent median sensory latency at the wrist bilaterally. Needle EMG testing was performed upper limbs. All muscles tested showed no evidence of denervation with normal motor unit action potentials. Electrodiagnostic impression: This is an abnormal study 1. Electrodiagnostic findings suggestive of bilateral median mononeuropathy. This is consistent with a moderate to severe right carpal tunnel syndrome and a severe left carpal tunnel syndrome. 2. Electrodiagnostic findings suggestive of a left-sided ulnar neuropathy. This consistent with a moderate to advanced left cubital tunnel syndrome. 3. No electrodiagnostic evidence is noted for cervical radiculopathy Multi Select Codes Neurology Neurology Interp Codes: 31482-17 Musc test done w/n test comp (interp) (2) and 71146-95 Nrv cndj test 9-10 studies (interp)
== END | disposition home or self-care (01) ==
LOC: PSN 09:49
PROVIDERS: PCP Internal Medicine; Referring Provider Orthopaedic Surgery; Visit Provider Orthopaedic Surgery
DX: G56.03 Carpal tunnel syndrome, bilateral upper limbs (principal)
CPT/HCPCS: 95886; 95911

== ENCOUNTER → 2025-05-02 | Outpatient (CLI) | payer MEDICARE, OTHER, SELFPAY ==
--- NOTE | 2025-05-02 12:46 | ECHOCS_ITS ---
Reason For Study Reason For Study: Paroxysmal AFIB, CHF, EF EVAL. Procedure This was a 2D Doppler, Color Flow transthoracic echocardiogram. The study was technically difficult. Due to body habitus. Contrast injection was performed. Exam performed in department. Left Ventricle Normal LV size. The left ventricular ejection fraction is 55 %. Stage 1 diastolic dysfunction. No regional wall motion abnormalities noted. Right Ventricle Normal RV size. Normal systolic function. Atria Normal left atrium. Normal right atrium. Mitral Valve There is mild to moderate mitral annular calcification. Tricuspid Valve Normal tricuspid valve. Aortic Valve Trisinus/trileaflet aortic valve. Pulmonic Valve Normal pulmonic valve. Great Vessels Normal aortic root. The pulmonary artery is normal size. Inferior vena cava collapse with respiration. Pericardium/Pleural No pericardial effusion. Medication 22 gauge I.V. with prn adaptor inserted into left arm. Diluted definity 4.0ml given slow IV push to enhance endocardial definition. MMode/2D Measurements & Calculations LVIDd: 5.3 cm IVSd: 0.83 cm Ao root diam: 3.3 cm LVIDs: 3.4 cm LVPWd: 1.0 cm RVDd: 3.5 cm FS: 36.8 % LAV(MOD-bp): 79.2 ml LVAd ap4: 31.5 cm2 SV(MOD-sp4): 58.9 ml LAV(MOD-bp) Indexed: 36.2 ml/m2 LVLd ap4: 7.3 cm SI(MOD-sp4): 26.9 ml/m2 LAV(MOD-sp2): 76.4 ml EDV(MOD-sp4): 110.9 ml LAV(MOD-sp4): 79.7 ml EDV(sp4-el): 115.7 ml LVAs ap4: 19.6 cm2 LVLs ap4: 6.1 cm ESV(MOD-sp4): 52.0 ml ESV(sp4-el): 53.6 ml EF(MOD-sp4): 53.1 % EF(sp4-el): 53.7 % SV(sp4-el): 62.1 ml LA A4 area: 23.9 cm2 RA A4 area: 15.3 cm2 TAPSE: 2.9 cm Time Measurements MV dec time: 0.22 sec Doppler Measurements & Calculations MV E max sonny: 72.7 cm/sec Lat Peak E' Sonny: 7.9 cm/sec Med Peak E' Sonny: 6.3 cm/sec MV A max sonny: 83.7 cm/sec E/E' lat: 9.2 E/E' med: 11.5 MV E/A: 0.87 MV V2 max: 88.0 cm/sec MV P1/2t max sonny: 88.0 cm/sec Ao V2 max: 114.9 cm/sec MV max P.1 mmHg MV P1/2t: 78.2 msec Ao max P.3 mmHg MV V2 mean: 56.4 cm/sec Ao V2 mean: 78.9 cm/sec MV mean P.4 mmHg MV dec slope: 329.5 cm/sec2 Ao mean P.9 mmHg MV V2 VTI: 25.6 cm MVA(P1/2t): 2.8 cm2 Ao V2 VTI: 30.1 cm AV (velocity ratio): 0.72 LV V1 max: 82.0 cm/sec PA V2 max: 92.3 cm/sec LV V1 max P.7 mmHg LV V1 mean P.6 mmHg LV V1 mean: 60.5 cm/sec LV V1 VTI: 21.6 cm ECHO/Echo Complete W/ Contrast Interpretation Summary Normal LV size. The left ventricular ejection fraction is 55 %. Stage 1 diastolic dysfunction. Contrast injection was performed. Ordering Physician: Ashkan Remy Referring Physician: Yesi Clinton Performed By: Christina Davis, ALIREZA, RVT
== END | disposition home or self-care (01) ==
LOC: CVS 12:46
PROVIDERS: PCP Internal Medicine; Referring Provider Nurse Practitioner Family; Visit Provider Nurse Practitioner Family
DX: I48.0 Paroxysmal atrial fibrillation (principal); I50.30 Unspecified diastolic (congestive) heart failure; Z98.890 Other specified postprocedural states
CPT/HCPCS: 93306; Q9957; A4216; C8929

== ENCOUNTER → 2025-05-14 | Outpatient (CLI) | payer MEDICARE, OTHER, SELFPAY ==
--- NOTE | 2025-05-14 09:53 | NM_ITS ---
PROCEDURE: PYP SPECT FOR CARDIAC AMYLOID REASON FOR EXAM: A-FIB Rule out cardiac amyloidosis. TECHNIQUE: Procedure Code: NMPYPS Modality: NM Procedure: PYP SPECT FOR CARDIAC AMYLOID. 21.6 mCi of technetium labeled HDP given intravenously. COMPARISON: None FINDINGS: Imaging of the heart and lungs was obtained. The ratio of the heart to the lung uptake is 1.14. Less than 1.5 ratio is normal. NM/PYP SPECT for Cardiac Amyloid IMPRESSION: No evidence of cardiac amyloidosis. Reading Location: [id number]
--- OUTSIDE RECORDS SUMMARY | 2025-05-14 12:11 | XMS RPT_ITS | CCD ---
Author Organization [facility] Care Team Providers Care Fur Pointer Name Role Phone Dr. Bean Brower Primary Care Provider Dr. Edi Michelle Emergency Provider Dr. Doug Barrera Admit Provider Dr. Doug Barrera Attending Provider Dr. Doug Barrera Other Provider Dr. Skip Rangel Attending Provider Dr. Skip Rangel Other Provider Esther Martinez Attending Provider Unavailable Dr. Bean Brower Referring Provider Roof PHONE MANAGER, PHONE MANAGER-Vika Sam Attending Provider Dr. Yesi Clinton Attending Provider [phone] Dr. Yesi Clinton Primary Care Provider Dr. Yesi Clinton Referring Provider [phone] GLADYS Lim Attending Provider Unavailab Dr. Bean Nguyen Primary Care Provider Dr. Skip Rangel Attending Provider Roof PHONE MANAGER, PHONE MANAGER-Vika Sam Referring Provider Roof PHONE MANAGER, PHONE MANAGER-Vika Sam Other Provider Dr. Bean Brower Primary Care Provider Dr. Bean Brower Referring Provider Dr. Yesi Clinton Attending Provider Dr. Bean Brower Referring Provider Roof PHONE MANAGER, PHONE MANAGER-C Ashkan H Attending Provider Dr. Saul Hernandez Attending Provider Dr. Skip Rangel Referring Provider [phone] Skip Rangel Other Provider Dr. Brian Donovan Attending Provider Esther Martinez Attending Provider Unavailable Dr. Yesi Clinton Primary Care Provider [phone] Dr. Yesi Clinton Referring Provider Parmar PHONE MANAGER, PHONE MANAGER-C Kaylie Attending Provider Dr. Yesi Clinton Primary Care Provider [phone] Dr. Yesi Clinton Referring Provider Roof PHONE MANAGER, PHONE MANAGER-C Ashkan H Referring Provider Roof PHONE MANAGER, PHONE MANAGER-C Ashkan H Other Provider [phone] Dr. Yesi Clinton Primary Care Provider [phone] Dr. Skip Rangel Attending Provider [phone] Bean Brower Referring Provider Roof PHONE MANAGER, PHONE MANAGER-C Ashkan H Attending Provider Dr. Saul Hernandez Attending Provider [phone] Dr. Skip Rangel Referring Provider [phone] Skip Rangel Other Provider Dr. Brian Donovan Attending Provider Dr. Yesi Clinton Referring Provider Parmar PHONE MANAGER, PHONE MANAGER-C Kaylie Attending Provider Dr. Yesi Clinton Primary [...] 00 Dr. Skip Rangel Other Provider Tomasz PHONE MANAGER, PHONE MANAGER-Vika Valentin Attending Provider Dr. Yesi Clinton Primary Care Provider [phone] Dr. Yesi Clinton Attending Provider [phone] Dr. Yesi Clinton Referring Provider [phone] Sandrita PHONE MANAGER, PHONE MANAGER-C Ashkan Sam Attending Provider Dr. Skip Rangel [...] Yesi Clinton Referring Provider [phone] Sandrita PHONE MANAGER, PHONE MANAGER-C Ashkan Sam Attending Provider Dr. Yesi Clinton Primary Care Provider [phone] Dr. Yesi Clinton Referring Provider [phone] Roof PHONE MANAGER, PHONE MANAGER-C Ashkan Sam Attending Provider [phone] Dr. Skip Rangel Attending Provider [phone] GLADYS Guevara Attending Provider Dr. Yesi Clinton Attending Provider [phone] Dr. Doug Nowak Attending Provider [phone] GLADYS Marcus Attending Provider [phone] Roof PHONE MANAGER, PHONE MANAGER-C Ashkan Sam Referring Provider [phone] Dr. Mc Villaseñor Attending Provider GLADYS Marcus Referring Provider [phone] Dr. Yesi Clinton Primary Care Provider [phone] Dr. Yesi Clinton Referring Provider [phone] Roof PHONE MANAGER, PHONE MANAGER-Vika Sam Attending Provider Dr. Skip Rangel Attending [...] Marcus Referring Provider [phone] Sourav Jaarmillo Attending Provider Dr. Doug Nowak Admit Provider Dr. Doug Nowak Referring Provider [phone] Doug Nowak Other Provider Roof PHONE MANAGER, PHONE MANAGER-C Ashkan Sam Other Provider JAILENE NICHOLS Attending [...] Unavaila ble TOÑO PALACIOS Attending Unavailable BORRUSO, GLEN PRESTON Referring Unavaila [...] Unavailable Yesi Clinton Primary Care Unavailable Sandrita PHONE MANAGERAshkan Attending Unavailable Sandrita PHONE MANAGERAshkan Referring Unavailable Oleghe, Efewongbe Referring Unavailable Glen Miguel Attending Unavailable Oleghe, Efewongbe Primary Care Unavailable Oleghe, Efewongbe Referring Unavailable Glen Miguel Attending Unavailable Oleghe, Efewongbe Primary Care Unavailable Oleghe, Efewongbe Primary Care Unavailable Skip Rangel Attending Unavailable Oleghe, Efewongbe Primary Care Unavailable Roof PHONE MANAGER, Ashkan Sam Attending Unavailable Oleghe, Efewongbe Referring [...] [PIPERACILLIN-TA ZOBACTAM] Drug Allergy 4 [facility] Repository (20 sources) Piperacillin Drug Allergy 2 [facility] (20 sources) tazobactam Drug Allergy 2 [facility] (20 sources) Amiodarone Drug Allergy 2 Dizzy/Vertigo [facility] (16 sources) dilTIAZem Drug Allergy 3 Swelling [facility] (3 sources) Piperacillin / tazobactam Drug Allergy 3 [facility] (1 source) ALLERGIES NOT ON FILE; Translations: [ALLERGIES NOT ON FILE] Propensity to adverse reactions (disorder) [facility] 2 Repository (1 source) Amiodarone Drug Allergy 5 [facility] Repository (1 source) dilTIAZem Drug Allergy 5 [facility] Repository (1 source) Piperacillin Drug Allergy 5 [facility] Repository (1 source) tazobactam Drug Allergy 5 [facility] Repository Medications Current Medications Medication Drug Class(es) [...] did not obtain her rhythm on her [employer] mobile when this occurred. And it passed [...] )on 04-11-2025 BUN/CRE 15.6 RATIO Normal 03-19 [facility] Comment on above: Performed By: #### L 500.2500, L100.0100 #### [facility] [address] [place], [address] Calcium [Mass/Vol] 10.0 mg/dL Normal 7.6-11.0 [facility] Comment on above: Performed By: #### L 500.2500, L100.0100 #### [facility] [address] [place], [address] Chloride [Moles/Vol] 104 mmol/L Normal 98-108 [facility] Comment on above: Performed By: #### L 500.2500, L100.0100 #### [facility] [address] [place], [address] CO2 [Moles/Vol] 25.3 mmol/L Normal 21.0-32.0 [facility] Comment on above: Performed By: #### L 500.2500, L100.0100 #### [facility] [address] [place], [address] Creatinine [Mass/Vol] 0.95 mg/dL Normal 0.70-1.20 [facility] Comment on above: Performed By: #### L 500.2500, L100.0100 #### [facility] [address] [place], [address] GAP 10 Normal 5-15 [facility] Comment on above: Performed By: #### L 500.2500, L100.0100 #### [facility] [address] [place], [address] GFR/1.73 sq M.predicted among non-blacks MDRD (S/P/Bld) [Vol rate/Area] 64 mL/min/{1.73_m2} Normal >60 [facility] Comment on above: Result Comment: mL/m in/1.73m2 CKD-EPI Creatinine Equation (2020) Performed By: #### L 500.2500, L100.0100 #### [facility] [address] [place], [address] Glucose [Mass/Vol] 109 mg/dL High 70-99 [facility] Comment on above: Performed By: #### L 500.2500, L100.0100 #### [facility] [address] [place], [address] Potassium [Moles/Vol] 4.4 mmol/L Normal 3.3-5.1 [facility] Comment on above: Performed By: #### L 500.2500, L100.0100 #### [facility] [address] [place], [address] Sodium [Moles/Vol] 139 mmol/L Normal 133-145 [facility] Comment on above: Performed By: #### L 500.2500, L100.0100 #### [facility] [address] [place], [address] Urea nitrogen [Mass/Vol] 15 mg/dL Normal 4-19 [facility] Comment on above: Performed By: #### L 500.2500, L100.0100 #### [facility] [address] [place], [address] CBC W/Diff, Automatedon 03-31 Absolute Lymph 2.50 X10 3/uL Normal 0.83-4.51 [facility] Comment on above: Performed By: #### L 500.2500, L100.0100 #### [facility] [address] [place], [address] Absolute Neut 5.3 X10 3/uL Normal 2.0-7.7 [facility] Comment on above: Performed By: #### L 500.2500, L100.0100 #### [facility] [address] [place], [address] Basophils/100 WBC (Bld) 0.4 % Normal 0-1 [facility] Comment on above: Performed By: #### L 500.2500, L100.0100 #### [facility] [address] [place], [address] Eosinophils/100 WBC (Bld) 1.8 % Normal 0-5 [facility] Comment on above: Performed By: #### L 500.2500, L100.0100 #### [facility] [address] [place], [address] Erythrocyte distribution width (RBC) [Ratio] 12.7 % Normal 11.6-14.6 [facility] Comment on above: Performed By: #### L 500.2500, L100.0100 #### [facility] [address] [place], [address] Hematocrit (Bld) [Volume fraction] 44.8 % Normal 37-47 [facility] Comment on above: Performed By: #### L 500.2500, L100.0100 #### [facility] [address] [place], [address] Hemoglobin (Bld) [Mass/Vol] 14.6 g/dL Normal 12.0-15.0 [facility] Comment on above: Performed By: #### L 500.2500, L100.0100 #### [facility] [address] [place], [address] IG% 0.200 Normal 0.0-0.9 [facility] Comment on above: Result Comment: IG% - Immature Granulocytes (promyelocytes, myelocytes and metamyelocytes) > 1% indicates that a LEFT SHIFT is Present. Performed By: #### L 500.2500, L100.0100 #### [facility] [address] [place], [address] Lymphocytes/100 WBC (Bld) 28.1 % Normal 19-41 [facility] Comment on above: Performed By: #### L 500.2500, L100.0100 #### [facility] [address] [place], [address] MCH (RBC) [Entitic mass] 29.9 pg Normal 27.0-32.0 [facility] Comment on above: Performed By: #### L 500.2500, L100.0100 #### [facility] [address] [place], [address] MCHC (RBC) [Mass/Vol] 32.6 g/dL Normal 32-36 [facility] Comment on above: Performed By: #### L 500.2500, L100.0100 #### [facility] [address] [place], [address] MCV (RBC) [Entitic vol] 91.6 fL Normal 81-99 [facility] Comment on above: Performed By: #### L 500.2500, L100.0100 #### [facility] [address] [place], [address] Monocytes/100 WBC (Bld) 9.7 % Normal 0-10 [facility] Comment on above: Performed By: #### L 500.2500, L100.0100 #### [facility] [address] [place], [address] Neutrophils/100 WBC (Bld) 59.8 % Normal 47-70 [facility] Comment on above: Performed By: #### L 500.2500, L100.0100 #### [facility] [address] [place], [address] Nucleated RBC (Bld) [#/Vol] 0 10*3/uL Normal 0-5 [facility] Comment on above: Performed By: #### L 500.2500, L100.0100 #### [facility] [address] [place], [address] Platelet mean volume (Bld) [Entitic vol] 9.7 fL Normal 6.2-12.0 [facility] Comment on above: Performed By: #### L 500.2500, L100.0100 #### [facility] [address] [place], [address] Platelets (Bld) [#/Vol] 282 10*3/uL Normal 150-450 [facility] Comment on above: Performed By: #### L 500.2500, L100.0100 #### [facility] [address] [place], [address] RBC (Bld) [#/Vol] 4.89 10*6/uL Normal 4.2-5.4 [facility] Comment on above: Performed By: #### L 500.2500, L100.0100 #### [facility] [address] [place], [address] RDW SD 42.9 fl Normal 35.1-43.9 [facility] Comment on above: Performed By: #### L 500.2500, L100.0100 #### [facility] [address] [place], [address] WBC (Bld) [#/Vol] 8.9 10*3/uL Normal 4.4-11.0 [facility] Comment on above: Performed By: #### L 500.2500, L100.0100 #### [facility] [address] [place], [address] Cardiology Visit Reporton Cardiology Visit Report [facility] [address] [place] [address] OFFICE VISIT Date of Service: 04/11/25 MR#: [id number] Acct: [id number] Name: BEULAH MCPHERSON Rep #: [id number] : 1955 Provider: VALENTÍN amezquita Age/Sex: 69/F Location[place] [facility] Status: Signed HPI HPI History of Present [...] 97 Intake Visit Reasons: 1 Y FU Preparation Supervisor Required: No Is patient in pain?: No [...] cardiac r (more content not included)... Normal [facility] Knee 3 Viewson 02-23-2025 Knee 3 Views [facility] [address] [place] [address] Knee 3 Views MR#: [id number] Acct: [id number] Name: BEULAH MCPHERSON Rep #: [id number] : 1955 F 69 From: Jennifer Powers PCP: Dr. Yesi Clinton MD Status: DEP AMB Study: Knee 3 Views Date of Exam: 02/23/25 Exam# [id number] Ordering Dr: Glen Miguel DO PROCEDURE: KNEE [...] evidence of fracture or loosening. Reading Location: [id number] CC: Dr. Yesi Clinton MD; Dr. 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 Glen jimenez DO Age/Sex: 69/F Location: [facility] Status: Signed Intake Vital Signs 04/18/24 13:17 [...] No Ecchymos (more content not included)... Normal [facility] Orthopedic Visit Reporton Orthopedic Visit Report [facility] [address] [place] [address] OFFICE VISIT Date of Service: 05/15/24 MR#: [id number] Acct: [id number] Name: BEULAH MCPHERSON Rep #: [id number] : 1955 Provider: Dr. Glen Pérez so, DO Age/Sex: 68/F Location: [facility] Status: Signed Intake Vital Signs 02/22/24 16:15 [...] her hip replaced by Dr. Chatman in [place] in 2009. She has had no signs of infection or DVT Ortho Exam General General: Yes no acute distress Neurologic: Yes alert and Yes oriented x3 Psychologic: Yes reasonable and appropriate Right Knee Skin/Wound: No erythema, No ecchymosis and No swelling Knee ROM: Yes RO (more content not included)... Normal [facility] CBC W/Diff, Automatedon 11-2 Absolute Lymph 2.35 X10 3/uL Normal 0.83-4.51 [facility] Comment on above: Performed By: #### L 100.0100, L501.9985, L500.4100, L500.4050 #### [facility] [address] [place], [address] Absolute Neut 3.9 X10 3/uL Normal 2.0-7.7 [facility] Comment on above: Performed By: #### L 100.0100, L501.9985, L500.4100, L500.4050 #### [facility] [address] [place], [address] Basophils/100 WBC (Bld) 0.6 % Normal 0-1 [facility] Comment on above: Performed By: #### L 100.0100, L501.9985, L500.4100, L500.4050 #### [facility] [address] [place], [address] Eosinophils/100 WBC (Bld) 1.7 % Normal 0-5 [facility] Comment on above: Performed By: #### L 100.0100, L501.9985, L500.4100, L500.4050 #### [facility] [address] [place], [address] Erythrocyte distribution width (RBC) [Ratio] 13.3 % Normal 11.6-14.6 [facility] Comment on above: Performed By: #### L 100.0100, L501.9985, L500.4100, L500.4050 #### [facility] [address] [place], [address] Hematocrit (Bld) [Volume fraction] 39.5 % Normal 37-47 [facility] Comment on above: Performed By: #### L 100.0100, L501.9985, L500.4100, L500.4050 #### [facility] [address] [place], [address] Hemoglobin (Bld) [Mass/Vol] 12.5 g/dL Normal 12.0-15.0 [facility] Comment on above: Performed By: #### L 100.0100, L501.9985, L500.4100, L500.4050 #### [facility] [address] [place], [address] IG% 0.100 Normal 0.0-0.9 [facility] Comment on above: Result Comment: IG% - Immature Granulocytes (promyelocytes, myelocytes and metamyelocytes) > 1% indicates that a LEFT SHIFT is Present. Performed By: #### L 100.0100, L501.9985, L500.4100, L500.4050 #### [facility] [address] [place], [address] Lymphocytes/100 WBC (Bld) 33.5 % Normal 19-41 [facility] Comment on above: Performed By: #### L 100.0100, L501.9985, L500.4100, L500.4050 #### [facility] [address] [place], [address] MCH (RBC) [Entitic mass] 29.1 pg Normal 27.0-32.0 [facility] Comment on above: Performed By: #### L 100.0100, L501.9985, L500.4100, L500.4050 #### [facility] [address] [place], [address] MCHC (RBC) [Mass/Vol] 31.6 g/dL Low 32-36 [facility] Comment on above: Performed By: #### L 100.0100, L501.9985, L500.4100, L500.4050 #### [facility] [address] [place], [address] MCV (RBC) [Entitic vol] 92.1 fL Normal 81-99 [facility] Comment on above: Performed By: #### L 100.0100, L501.9985, L500.4100, L500.4050 #### [facility] [address] [place], [address] Monocytes/100 WBC (Bld) 7.8 % Normal 0-10 [facility] Comment on above: Performed By: #### L 100.0100, L501.9985, L500.4100, L500.4050 #### [facility] [address] [place], [address] Neutrophils/100 WBC (Bld) 56.3 % Normal 47-70 [facility] Comment on above: Performed By: #### L 100.0100, L501.9985, L500.4100, L500.4050 #### [facility] [address] [place], [address] Nucleated RBC (Bld) [#/Vol] 0 10*3/uL Normal 0-5 [facility] Comment on above: Performed By: #### L 100.0100, L501.9985, L500.4100, L500.4050 #### [facility] [address] [place], [address] Platelet mean volume (Bld) [Entitic vol] 9.6 fL Normal 6.2-12.0 [facility] Comment on above: Performed By: #### L 100.0100, L501.9985, L500.4100, L500.4050 #### [facility] [address] [place], [address] Platelets (Bld) [#/Vol] 258 10*3/uL Normal 150-450 [facility] Comment on above: Performed By: #### L 100.0100, L501.9985, L500.4100, L500.4050 #### [facility] [address] [place], [address] RBC (Bld) [#/Vol] 4.29 10*6/uL Normal 4.2-5.4 [facility] Comment on above: Performed By: #### L 100.0100, L501.9985, L500.4100, L500.4050 #### [facility] [address] [place], [address] RDW SD 45.4 fl High 35.1-43.9 [facility] Comment on above: Performed By: #### L 100.0100, L501.9985, L500.4100, L500.4050 #### [facility] [address] [place], [address] WBC (Bld) [#/Vol] 7.0 10*3/uL Normal 4.4-11.0 [facility] Comment on above: Performed By: #### L 100.0100, L501.9985, L500.4100, L500.4050 #### [facility] [address] [place], [address] Comprehensive Metabolic Prof ilon 04-20-2024 Albumin [Mass/Vol] 3.6 g/dL Normal 3.2-5.0 [facility] Comment on above: Performed By: #### L 100.0100, L501.9985, L500.4100, L500.4050 #### [facility] [address] [place], [address] Albumin/Globulin [Mass ratio] 0.9 {ratio} Normal 0.9-2.4 [facility] Comment on above: Performed By: #### L 100.0100, L501.9985, L500.4100, L500.4050 #### [facility] [address] [place], [address] ALK P 60 U/L Normal 45-117 [facility] Comment on above: Performed By: #### L 100.0100, L501.9985, L500.4100, L500.4050 #### [facility] [address] [place], [address] ALT [Catalytic activity/Vol] 14 U/L Normal 13-56 [facility] Comment on above: Performed By: #### L 100.0100, L501.9985, L500.4100, L500.4050 #### [facility] [address] [place], [address] AST [Catalytic activity/Vol] 13 U/L Low 15-37 [facility] Comment on above: Performed By: #### L 100.0100, L501.9985, L500.4100, L500.4050 #### [facility] [address] [place], [address] Bilirubin [Mass/Vol] 0.40 mg/dL Normal 0.20-1.00 [facility] Comment on above: Result Comment: For patients on eltrombopag therapy, use of Dimension Apex TBIL is not recommended. Performed By: #### L 100.0100, L501.9985, L500.4100, L500.4050 #### [facility] [address] [place], [address] BUN/CRE 21.0 RATIO High 10-20 [facility] Comment on above: Performed By: #### L 100.0100, L501.9985, L500.4100, L500.4050 #### [facility] [address] [place], [address] CA,Total 9.0 mg/dL Normal 8.5-10.1 [facility] Comment on above: Performed By: #### L 100.0100, L501.9985, L500.4100, L500.4050 #### [facility] [address] [place], [address] Chloride [Moles/Vol] 108 mmol/L High 98-107 [facility] Comment on above: Performed By: #### L 100.0100, L501.9985, L500.4100, L500.4050 #### [facility] [address] [place], [address] CO2 [Moles/Vol] 26.0 mmol/L Normal 21.0-32.0 [facility] Comment on above: Performed By: #### L 100.0100, L501.9985, L500.4100, L500.4050 #### [facility] [address] [place], [address] Creatinine [Mass/Vol] 0.90 mg/dL Normal 0.55-1.02 [facility] Comment on above: Result Comment: The validity of the calculated GFR GFRAA in patients over 70 years has not been determined. Clinical correlation is essential. Performed By: #### L 100.0100, L501.9985, L500.4100, L500.4050 #### [facility] [address] [place], [address] EST GFR - AA 79 mL/min Normal >60 [facility] Comment on above: Result Comment: Afri can [place] GFR Calc Performed By: #### L 100.0100, L501.9985, L500.4100, L500.4050 #### [facility] [address] [place], [address] GAP 4 Low 5-15 [facility] Comment on above: Performed By: #### L 100.0100, L501.9985, L500.4100, L500.4050 #### [facility] [address] [place], [address] GFR/1.73 sq M.predicted among non-blacks MDRD (S/P/Bld) [Vol rate/Area] 65 mL/min/{1.73_m2} Normal >60 [facility] Comment on above: Result Comment: Non- GFR Calc Performed By: #### L 100.0100, L501.9985, L500.4100, L500.4050 #### [facility] [address] [place], [address] Globulin (S) [Mass/Vol] 4.0 g/dL Normal 2.2-4.2 [facility] Comment on above: Performed By: #### L 100.0100, L501.9985, L500.4100, L500.4050 #### [facility] [address] [place], [address] Glucose [Mass/Vol] 99 mg/dL Normal 74-106 [facility] Comment on above: Performed By: #### L 100.0100, L501.9985, L500.4100, L500.4050 #### [facility] [address] [place], [address] Potassium [Moles/Vol] 4.1 mmol/L Normal 3.5-5.1 [facility] Comment on above: Performed By: #### L 100.0100, L501.9985, L500.4100, L500.4050 #### [facility] [address] [place], [address] Sodium [Moles/Vol] 139 mmol/L Normal 136-145 [facility] Comment on above: Performed By: #### L 100.0100, L501.9985, L500.4100, L500.4050 #### [facility] [address] [place], [address] T PROT 7.6 g/dL Normal 6.4-8.2 [facility] Comment on above: Performed By: #### L 100.0100, L501.9985, L500.4100, L500.4050 #### [facility] [address] [place], [address] Urea nitrogen [Mass/Vol] 19 mg/dL High 7-18 [facility] Comment on above: Performed By: #### L 100.0100, L501.9985, L500.4100, L500.4050 #### [facility] [address] [place], [address] Hemoglobin A1con 04-20-2024 HbA1c (Bld) [Mass fraction] 5.4 % Normal 3.8-5.6 [facility] Comment on above: Result Comment: Norm al < 5.7 % Prediabetic 5.7 - 6.4 % Diabetic >or= 6.5 % Please note range changes. Performed By: #### L 100.0100, L501.9985, L500.4100, L500.4050 #### [facility] [address] [place], [address] Lipid Profileon 04-20-2024 Cholesterol [Mass/Vol] 195 mg/dL Normal 200 [facility] Comment on above: Result Comment: <200 mg/dL Desirable 200-240 mg/dL Borderline >240 mg/dL High Risk Performed By: #### L 100.0100, L501.9985, L500.4100, L500.4050 #### [facility] [address] [place], [address] Cholesterol in HDL [Mass/Vol] 48 mg/dL Normal [facility] Comment on above: Result Comment: The drugs N-Acetylcysteine and Metamizole may falsely depress this assay. Reference Range HDL <40 mg/dL Low HDL Cholesterol HDL >or= 60 mg/dL High HDL Cholesterol Performed By: #### L 100.0100, L501.9985, L500.4100, L500.4050 #### [facility] [address] [place], [address] Cholesterol in LDL [Mass/Vol] 114 mg/dL Normal 0-130 [facility] Comment on above: Performed By: #### L 100.0100, L501.9985, L500.4100, L500.4050 #### [facility] [address] [place], [address] Cholesterol in VLDL [Mass/Vol] 33 mg/dL Normal 5-40 [facility] Comment on above: Performed By: #### L 100.0100, L501.9985, L500.4100, L500.4050 #### [facility] [address] [place], [address] Triglyceride [Mass/Vol] 164 mg/dL Normal [facility] Comment on above: Result Comment: The drugs N-Acetylcysteine and Metamizole may falsely depress this assay. Serum Triglycerides Reference Interval Normal <150 mg/dL Borderline high 150 - 199 mg/dL High 200 - 499 mg/dL Very High > or = 500 mg/dL Performed By: #### L 100.0100, L501.9985, L500.4100, L500.4050 #### [facility] [address] [place], [address] Internal Medicine Office Vis itoekta 04-19-2024 Internal Medicine Office Visit [facility] [address] [place] [address] [place] [address] OFFICE VISIT Date of Service: 04/19/24 MR#: [id number] Acct: [id number] Name: BEULAH MCPHERSON Rep #: [id number] 4 : 1955 Provider: Dr. Yesi salcedo MD Age/Sex: 68/F Location[place] [facility] Status: Signed Intake Vital Signs 04/18/24 13:17 04/19/24 13:41 Height 5 ft 7 in BP 124/72 H Blood Pressure Location Lt brachial Position Sitting Respiration 16 Pulse 54 L Pulse Source Monitor Temp 97.2 F L Temp Source Temporal Pulse Oximetry (%) 96 Oxygen Delivery Method room air Intake Visit Reasons: FOLLOW UP Chief Complaint: f/u Preparation Supervisor Required: No Accompanied by: Self Is patient [...] habits, co (more content not included)... Normal [facility] Cardiology Visit Reporton Cardiology Visit Report [facility] [address] [place] [address] OFFICE VISIT Date of Service: 04/18/24 MR#: [id number] Acct: [id number] Name: BEULAH MCPHERSON Rep #: [id number] 3 : 1955 Provider: Dr. Skip Rangel MD Age/Sex: 68/F Location: [facility] [place] Status: Signed HPI HPI History of Present [...] Social His (more content not included)... Normal [facility] Absolute lymphocyte countOrd ered By: Ashkan Remy on 08-26-2023 Lymphocytes Auto (Unsp spec) [#/Vol] 2.22 10*3/uL 0.83-4.51 [facility] Automated lymphocyte count a s percentage of total leukocytesOrdered By: Ashkan Remy on 08-26-2023 Lymphocytes/100 WBC Auto (Unsp spec) 29.2 % 19-41 [facility] Basophil percentageOrdered B y: Ashkan Remy on 08-26-2023 Basophils/100 WBC (Bld) 0.7 % 0-1 [facility] Bilirubin [Mass/Vol] 0.70 mg/dL 0.20-1.00 [facility] Comment on above: For patients on eltr ombopag therapy, use of Dimension Apex TBIL is not recommended. Chloride [Moles/Vol] 107 mmol/L 98-107 [facility] Eosinophils/100 WBC (Bld) 2.5 % 0-5 [facility] Glucose [Mass/Vol] 103 mg/dL 74-106 [facility] Comment on above: Fasting Glucose resu lt from 100 to 125 mg/dL suggests IMPAIRED HOMEOSTASIS per A.D.A. criteria. Hemoglobin (Bld) [Mass/Vol] 14.0 g/dL 12.0-15.0 [facility] Monocytes/100 WBC (Bld) 8.3 % 0-10 [facility] Neutrophils (Bld) [#/Vol] 4.5 10*3/uL 2.0-7.7 [facility] Neutrophils/100 WBC (Bld) 59.0 % 47-70 [facility] Potassium [Moles/Vol] 4.3 mmol/L 3.5-5.1 [facility] Protein [Mass/Vol] 7.8 g/dL 6.4-8.2 [facility] Sodium [Moles/Vol] 138 mmol/L 136-145 [facility] WBC (Bld) [#/Vol] 7.6 10*3/uL 4.4-11.0 [facility] Determination of erythrocyte mean corpuscular volume (MCV)Ordered By: Ashkan Remy on 08-26-2023 MCV (RBC) [Entitic vol] 92.2 fL 81-99 [facility] Erythrocyte distribution wid th ratioOrdered By: Ashkan Remy on 08-26-2023 Erythrocyte distribution width (RBC) [Ratio] 12.8 % 11.6-14.6 [facility] Erythrocyte distribution wid th standard deviationOrdered By: Ashkan Remy on 08-26-2023 Erythrocyte distribution width (RBC) [Entitic vol] 43.5 fL 35.1-43.9 [facility] Hematocrit Auto (Bld) [Volum e fraction]Ordered By: Ashkan Remy on 08-26-2023 Hematocrit (Bld) [Volume fraction] 43.8 % 37-47 [facility] Immature granulocytes/100 WB C Auto (Bld)Ordered By: Ashkan Remy on 08-26-2023 Immature granulocytes/100 WBC (Bld) 0.300 % 0.0-0.9 [facility] Comment on above: IG% - Immature Granu locytes (promyelocytes, myelocytes and metamyelocytes) > 1% indicates that a LEFT SHIFT is Present. Laboratory - Chemistry and C hemistry - challengeOrdered By: Ashkan Remy on 08-26-2023 Albumin/Globulin [Mass ratio] 0.9 {ratio} 0.9-2.4 [facility] ALP [Catalytic activity/Vol] 52 U/L 45-117 [facility] ALT [Catalytic activity/Vol] 39 U/L 13-56 [facility] CO2 [Moles/Vol] 24.0 mmol/L 21.0-32.0 [facility] Globulin (S) [Mass/Vol] 4.1 g/dL 2.2-4.2 [facility] Magnesium [Mass/Vol] 2.2 mg/dL 1.6-2.6 [facility] Urea nitrogen/Creatinine [Mass ratio] 22.8 mg/mg 10-20 [facility] Laboratory - Hematology and Cell countsOrdered By: Ashkan Remy on 08-26-2023 MCH (RBC) [Entitic mass] 29.5 pg 27.0-32.0 [facility] MCHC (RBC) [Mass/Vol] 32.0 g/dL 32-36 [facility] Nucleated RBC/100 WBC (Bld) [Ratio] 0 % 0-5 [facility] Platelet mean volume (Bld) [Entitic vol] 9.8 fL 6.2-12.0 [facility] Platelets (Bld) [#/Vol] 185 10*3/uL 150-450 [facility] No Panel InformationOrdered By: Ashkan Remy on 08-26-2023 Estimated GFR (MDRD) Amer 70 mL/min >60 [facility] Comment on above: GFR Calc Estimated GFR (MDRD) Non-Af Amer 58 mL/min >60 [facility] Comment on above: Non- GFR Calc RBC Auto (Bld) [#/Vol]Ordere d By: Ashkan Remy on 08-26-2023 RBC (Bld) [#/Vol] 4.75 10*6/uL 4.2-5.4 [facility] Serum or plasma calcium leah urement (mass/volume)Ordered By: Ashkan Remy on 08-26-2023 Calcium [Mass/Vol] 8.8 mg/dL 8.5-10.1 [facility] Serum or plasma creatinine m easurement (mass/volume)Ordered By: Ashkan Remy on 08-26-2023 Creatinine [Mass/Vol] 1.01 mg/dL 0.55-1.02 [facility] Comment on above: The validity of the calculated GFR & GFRAA in patients over 70 years has not been determined. Clinical correlation is essential. Serum or plasma thyroid stim ulating hormone (TSH) measurement (units/volume)Ordered By: Ashakn Remy on 08-26-2023 TSH Qn 0.40 uIU/mL 0.358-3.74 [facility] Serum or plasma urea nitroge n measurement (mass/volume)Ordered By: Ashkan Remy on 08-26-2023 Urea nitrogen [Mass/Vol] 23 mg/dL 7-18 [facility] Thin prep Papanicolaou smear with manual screeningOrdered By: Ashkan Remy on 08-26-2023 Thin prep Papanicolaou smear with manual screening 3.7 g/dL 3.2-5.0 [facility] Thin prep Papanicolaou smear with manual screening 23 U/L 15-37 [facility] Thin prep Papanicolaou smear with manual screening 7 5-15 [facility] Thin prep Papanicolaou smear with manual screening 1.26 ng/dL 0.76-1.46 [facility] ECHOCARDIOGRAM LIMITED/FOLLO WUPon 08-13-2023 ECHOCARDIOGRAM LIMITED/FOLLOWUP - [...] Role Read Date Aldo Arreola MD Echo Hastings, Test [employer] Un[employer] 08/13/2023 Left Heart Measurements LV - Systole [...] spectral Doppler) was performed. Imaging system used: [employer]. Indications Indications for study: atrial fib / atrial flutter. Exam Details Performed Procedure Technologist Supporting Staff Performing Physician VT ECHOCARDIOGRAM LIMITED/FOLLOWUP W/O 3D Chelsey Luna RDCS Appointment Date/Status Modality Department 08/13/2023 Arrived [facility] , [facility] ECHOCARDIOGRAPHY [place] Begin Exam End Exam 08/13/2023 2:38 PM 08/13/2023 3:07 PM Signed at 1520 EDT External Results Report There is an external results report available. Patient Release Status: [facility]/FOLLOWUP: Patient Communication Released Not seen ABN Associated with this Order There is no ABN associated with this order. Normal [facility] US Heart limitedOrdered By: Aldo Arreola on 08-13-2023 Avg e' pk tayla 0.08 m/s [facility] Work Phone: Avg E/e' [facility] 8.24 [facility]: Body surface area Derived from formula 2.19 m2 [facility] Work [facility]: BP EF 56 % [facility] Work Phone: E wave decelartion time 218.62 msec [facility] Work Phone: e' lateral pk tayla 0.0880 m/s [facility] Work [facility]: e' lateral pk tayla 0.09 m/s [facility] Work Phone: e' septal pk tayla 0.0676 m/[facility] Work Phone: e' septal pk tayla 0.07 m/[facility] Work Phone: E/A ratio 0.68 [facility] Work Phone: E/e' lateral [facility] 7.16 [facility]: E/e' septal ratio 9.32 [facility] Work Phone: EF SP 2CH 57 [facility] Work Phone: EF SP 4CH 56 [facility] Work Phone: FS 32 % 28 - 44 % [facility] Work Phone: IVC ostium 1.12 cm [facility] Work Phone: IVS 0.93 cm [facility] Work Phone: LA AREA 2CH 20.81 cm2 [facility] Work Phone: LA area 4CH 19.62 cm2 [facility] Work Phone: LA ESV BP (MOD) 63 [facility] Work [facility]: LA ESV BP (MOD) index 29 mL/m2 [facility] Work Phone: LA ESV SP 2CH (MOD) 67 mL [facility] Work Phone: LA ESV SP 4CH (MOD) 55 mL [facility] Work Phone: LV EDV BP 64 mL [facility] Work Phone: LV EDV SP 2CH 63 mL [facility] Work Phone: LV EDV SP 4CH 63 mL [facility] Work Phone: LV ESV BP 28 mL [facility] Work Phone: LV ESV SP 2CH 27 mL [facility] Work Phone: LV ESV SP 4CH 28 mL [facility] Work Phone: LV mass 156.59 g [facility] Work Phone: LV Mass Index 71.5 g/m2 [facility] Work Phone: LV RWT 0.40 [facility] Work Phone: LV stroke volume BP (ml) 36 mL [facility] Work Phone: LV stroke volume index BP 16.44 mL/m2 [facility] Work Phone: LVIDD 4.80 cm [facility] Work Phone: LVIDS 3.28 cm [facility] Work Phone: MV pk A tayla 0.93 m/s [facility] Work Phone: MV pk E tayla 0.63 m/s [facility] Work Phone: MV stenosis pressure 1/2 time 63.40 ms [facility] Work Phone: MV valve area p 1/2 method 3.47 cm2 [facility] Work Phone: [facility]SU ECHO LV BIPLANE SYSTOLIC VOLUME INDEX 12.79 mL/m2 [facility] Work Phone: [facility] ECHO LV BP DIASTOLIC VOLUME INDEX 29.22 mL/m2 [facility] Work Phone: PW 0.95 cm [facility] Work Phone: RV S' 11.98 cm/s [facility] Work Phone: TAPSE 2.28 cm [facility] Work Phone: U [facility] Work Phone: Heart limitedon 4 - Limited [...] for study: atrial fib / atrial flutter. [facility] Radiology Study observation (narrative) [facility] Basophil percentageOrdered B y: Africa Marcus on 07-06-2023 Creatinine [Mass/Vol] 1.2 mg/dL 0.55-1.02 [facility] Laboratory - Chemistry and C hemistry - challengeOrdered By: Africa Marcus on 07-06-2023 GFR/1.73 sq M.predicted among non-blacks MDRD (S/P/Bld) [Vol rate/Area] 47.0000 mL/min/{1.73_m2} >60 [facility] Basophil percentageOrdered B y: Yesi Clinton on 05-26-2023 Basophil percentage 0-5 SEEN /hpf 0-5 [facility] Bilirubin Test strip Ql (U)O rdered By: Yesi Clinton on 05-26-2023 Bilirubin Ql (U) Negative Negative [facility] Culture, urineOrdered By: Ef ander Clinton on 05-26-2023 Bacteria identified Cx Nom (U) Mixed Gram Pos & Gram Neg Org [facility] Bacteria identified Cx Nom (U) Mixed Gram Pos & Gram Neg Org [facility] Ketones Test strip Ql (U)Ord ered By: Yesi Clinton on 05-26-2023 Ketones Ql (U) Negative Negative [facility] Mucus LM Ql (Urine sed)Order ed By: Yonybe Oz on 05-26-2023 Mucus Ql (Urine sed) 0 SEEN /hpf [facility] Nitrite Test strip Ql (U)Ord ered By: Keeleyongbe Oz on 05-26-2023 Nitrite Ql (U) Negative Negative [facility] Protein Test strip Ql (U)Ord ered By: Efmartyongbe Jonhe on 05-26-2023 Protein Ql (U) Negative Negative [facility] Squamous epithelial cells de tection in urine sediment by light microscopyOrdered By: Yesi Clinton on 05-26-2023 Epithelial cells.squamous LM Ql (Urine sed) 5-10 SEEN /hpf 5-10 [facility] Urine blood detectionOrdered By: Yesi Clinton on 05-26-2023 RBC Ql (U) Negative Negative [facility] RBC Ql (U) 0 SEEN /hpf 0-5 [facility] Urine clarityOrdered By: Varinder Clinton on 05-26-2023 Clarity (U) Sl. Cloudy Clear [facility] Urine color determinationOrd ered By: Yesi Clinton on 05-26-2023 Color (U) Yellow Yellow [facility] Urine glucose detectionOrder ed By: Yesi Clinton on 05-26-2023 Glucose Ql (U) Normal mg/dl Normal [facility] Urine leukocyte esterase det ection by dipstickOrdered By: Yesi Clinton on 05-26-2023 Leukocyte esterase Test strip Ql (U) Negative Negative [facility] Urine pHOrdered By: Na Clinton on 05-26-2023 pH (U) 6.5 [pH] 5.0 - 8.0 [facility] Urine sediment bacteria coun t by microscopy (number/high power field)Ordered By: Yesi Clinton on 05-26-2023 Bacteria LM.HPF (Urine sed) [#/Area] RARE /hpf None Seen [facility] Urine specific gravity measu rementOrdered By: Yesi Clinton on 05-26-2023 Specific gravity (U) [Rel density] 1.010 1.002-1.030 [facility] Urobilinogen Auto test strip Ql (U)Ordered By: Yesi Clinton on 05-26-2023 Urobilinogen Ql (U) Normal mg/dl Normal [facility] Absolute lymphocyte countOrd ered By: Yesi Clinton on 05-17-2023 Lymphocytes Auto (Unsp spec) [#/Vol] 2.67 10*3/uL 0.83-4.51 [facility] Basophil percentageOrdered B y: Yesi Clinton on 05-17-2023 Basophil percentage 0-5 SEEN /hpf 0-5 [facility] Basophils/100 WBC (Bld) 0.4 % 0-1 [facility] Chloride [Moles/Vol] 108 mmol/L 98-107 [facility] Eosinophils/100 WBC (Bld) 2.7 % 0-5 [facility] Glucose [Mass/Vol] 97 mg/dL 74-106 [facility] Neutrophils (Bld) [#/Vol] 4.1 10*3/uL 2.0-7.7 [facility] Neutrophils/100 WBC (Bld) 52.9 % 47-70 [facility] Potassium [Moles/Vol] 4.2 mmol/L 3.5-5.1 [facility] Sodium [Moles/Vol] 140 mmol/L 136-145 [facility] WBC (Bld) [#/Vol] 7.7 10*3/uL 4.4-11.0 [facility] Bilirubin Test strip Ql (U)O rdered By: Yesi Clinton on 05-17-2023 Bilirubin Ql (U) Negative Negative [facility] Blood erythrocytes count (nu mber/volume)Ordered By: Yesi Clinton on 05-17-2023 RBC (Bld) [#/Vol] 4.74 10*6/uL 4.2-5.4 [facility] Blood hemoglobin measurement (mass/volume)Ordered By: Yesi Clinton on 05-17-2023 Hemoglobin (Bld) [Mass/Vol] 14.3 g/dL 12.0-15.0 [facility] Blood lymphocytes/100 leukoc ytesOrdered By: Yesi Clinton on 05-17-2023 Lymphocytes/100 WBC (Bld) 34.9 % 19-41 [facility] Blood monocytes/100 leukocyt esOrdered By: Yesi Clinton on 05-17-2023 Monocytes/100 WBC (Bld) 8.8 % 0-10 [facility] Blood platelet mean volumeOr dered By: Yesi Clinton on 05-17-2023 Platelet mean volume (Bld) [Entitic vol] 9.3 fL 6.2-12.0 [facility] Culture, urineOrdered By: Shirley Clinton on 05-17-2023 Bacteria identified Cx Nom (U) Presumptive E. coli [facility] Bacteria identified Cx Nom (U) Presumptive E. coli [facility] Determination of erythrocyte mean corpuscular volume (MCV)Ordered By: Yesi Clinton on 05-17-2023 MCV (RBC) [Entitic vol] 94.3 fL 81-99 [facility] Hematocrit Auto (Bld) [Volum e fraction]Ordered By: Yesi Clinton on 05-17-2023 Hematocrit (Bld) [Volume fraction] 44.7 % 37-47 [facility] Ketones Test strip Ql (U)Ord ered By: Yesi Clinton on 05-17-2023 Ketones Ql (U) Negative Negative [facility] Laboratory - Chemistry and C hemistry - challengeOrdered By: Yesi Clinton on 05-17-2023 CO2 [Moles/Vol] 26.0 mmol/L 21.0-32.0 [facility] Urea nitrogen/Creatinine [Mass ratio] 23.0 mg/mg 10-20 [facility] Laboratory - Hematology and Cell countsOrdered By: Yesi Clinton on 05-17-2023 Erythrocyte distribution width (RBC) [Entitic vol] 44.0 fL 35.1-43.9 [facility] Erythrocyte distribution width (RBC) [Ratio] 12.9 % 11.6-14.6 [facility] Immature granulocytes/100 WBC (Bld) 0.300 % 0.0-0.9 [facility] Comment on above: IG% - Immature Granu locytes (promyelocytes, myelocytes and metamyelocytes) > 1% indicates that a LEFT SHIFT is Present. MCH (RBC) [Entitic mass] 30.2 pg 27.0-32.0 [facility] Nucleated RBC/100 WBC (Bld) [Ratio] 0 % 0-5 [facility] MCHC Auto (RBC) [Mass/Vol]Or dered By: Yesi Clinton on 05-17-2023 MCHC (RBC) [Mass/Vol] 32.0 g/dL 32-36 [facility] Mucus LM Ql (Urine sed)Order ed By: Yesi Clinton on 05-17-2023 Mucus Ql (Urine sed) 0 SEEN /hpf [facility] Nitrite Test strip Ql (U)Ord ered By: Yesi Clinton on 05-17-2023 Nitrite Ql (U) Positive Negative [facility] No Panel InformationOrdered By: Yesi Clinton on 05-17-2023 Estimated GFR (MDRD) Amer 83 mL/min >60 [facility] Comment on above: GFR Calc Estimated GFR (MDRD) Non-Af Amer 68 mL/min >60 [facility] Comment on above: Non- GFR Calc Platelets bldOrdered By: Varinder Clinton on 05-17-2023 Platelets (Bld) [#/Vol] 273 10*3/uL 150-450 [facility] Protein Test strip Ql (U)Ord ered By: Yesi Clinton on 05-17-2023 Protein Ql (U) 15 mg/dl Negative [facility] Serum or plasma calcium leah urement (mass/volume)Ordered By: Yesi Clinton on 05-17-2023 Calcium [Mass/Vol] 8.7 mg/dL 8.5-10.1 [facility] Serum or plasma creatinine m easurement (mass/volume)Ordered By: Yesi Clinton on 05-17-2023 Creatinine [Mass/Vol] 0.87 mg/dL 0.55-1.02 [facility] Comment on above: The validity of the calculated GFR & GFRAA in patients over 70 years has not been determined. Clinical correlation is essential. Serum or plasma urea nitroge n measurement (mass/volume)Ordered By: Yesi Clinton on 05-17-2023 Urea nitrogen [Mass/Vol] 20 mg/dL 7-18 [facility] Squamous epithelial cells de tection in urine sediment by light microscopyOrdered By: Yesi Clinton on 05-17-2023 Epithelial cells.squamous LM Ql (Urine sed) 0-5 SEEN /hpf 5-10 [facility] Thin prep Papanicolaou smear with manual screeningOrdered By: Yesi Clinton on 05-17-2023 Thin prep Papanicolaou smear with manual screening 6 5-15 [facility] Urine blood detectionOrdered By: Yesi Clinton on 05-17-2023 RBC Ql (U) 25 /ul Negative [facility] RBC Ql (U) 0-5 SEEN /hpf 0-5 [facility] Urine clarityOrdered By: Varinder Clinton on 05-17-2023 Clarity (U) Sl. Cloudy Clear [facility] Urine color determinationOrd ered By: Yesi Cazaresmontyrj on 05-17-2023 Color (U) Yellow Yellow [facility] Urine glucose detectionOrder ed By: Yesi Cazaresmontyrj on 05-17-2023 Glucose Ql (U) Normal mg/dl Normal [facility] Urine leukocyte esterase det ection by dipstickOrdered By: Yesi Clinton on 05-17-2023 Leukocyte esterase Test strip Ql (U) 25 /ul Negative [facility] Urine pHOrdered By: Na Cazaresmontyrj on 05-17-2023 pH (U) 5.0 [pH] 5.0 - 8.0 [facility] Urine sediment bacteria coun t by microscopy (number/high power field)Ordered By: Yesi Cazaresmontyrj on 05-17-2023 Bacteria LM.HPF (Urine sed) [#/Area] 2 /[HPF] None Seen [facility] Urine specific gravity measu rementOrdered By: Yesi Cazaresmontyrj on 05-17-2023 Specific gravity (U) [Rel density] 1.015 1.002-1.030 [facility] Urobilinogen Auto test strip Ql (U)Ordered By: Yesi Cazaresmontyrj on 05-17-2023 Urobilinogen Ql (U) Normal mg/dl Normal [facility] EP PROCEDURE - EPS/ABLATION/ DEVICEon 03-31-2023 EP [...] EPS/Ablation/Device Ordering Physician: MANSI COMER Order #: [id number] Study Date: 03/30/2023 Patient Information Name MRN Description Beulah Mcpherson [id number] 67 y.o. female Physicians Panel Physicians Referring [...] frequency. Irrigati (more content not included)... Normal [facility] ACT* LOW RANGE, POCon 2022 ACT LOW RANGE, POC 321.0 High [facility] Interpretation and review of laboratory results Abnormal [facility] Test performed at address of the patient encounter. [facility] ACT LOW RANGE, POC 382.0 High [facility] Interpretation and review of laboratory results Abnormal [facility] Test performed at address of the patient encounter. [facility] Comment on above: Out of Range High. The test result is outside clinical range and should not be used for patient-management decisions. Test performed at address of the patient encounter. [facility] ACT LOW RANGE, POC 360.0 [facility] Interpretation and review of laboratory results Abnormal [facility] Test performed at address of the patient encounter. [facility] ACT LOW RANGE, POC 360.0 High [facility] Interpretation and review of laboratory results Abnormal [facility] Test performed at address of the patient encounter. [facility] ACT LOW RANGE, POC [facility] Comment on above: Out of Range High. The test result is outside clinical range and should not be used for patient-management decisions. Test performed at address of the patient encounter. [facility] ACT LOW RANGE, POC [facility] Comment on above: Out of Range High. The test result is outside clinical range and should not be used for patient-management decisions. Test performed at address of the patient encounter. [facility] ACT LOW RANGE, POC [facility] Comment on above: Out of Range High. The test result is outside clinical range and should not be used for patient-management decisions. Test performed at address of the patient encounter. [facility] CBC AND ELECTRONIC DIFFon Basophils (Bld) [#/Vol] 0.05 10*3/uL Normal 0.00-0.15 [facility] Comment on above: Performed By: #### L [id number] #### [facility] (DEFAULT) [address] [address] Basophils/100 WBC (Bld) 0.6 % Normal O [facility] Comment on above: Performed By: #### L [id number] #### [facility] (DEFAULT) [address] [place] [address] DIFF STATUS Electronic Differential Normal [facility] Comment on above: Performed By: #### L [id number] #### [facility] (DEFAULT) [address] [address] Eosinophils (Bld) [#/Vol] 0.14 10*3/uL Normal 0.00-0.42 [facility] Comment on above: Performed By: #### L [id number] #### [facility] (DEFAULT) [address] [place] [address] Eosinophils/100 WBC (Bld) 1.7 % Normal [facility] Comment on above: Performed By: #### L [id number] #### [facility] (DEFAULT) [address] [address] Hematocrit (Bld) [Volume fraction] 45.2 % High 34.9-44.3 [facility] Comment on above: Performed By: #### L [id number] #### [facility] (DEFAULT) [address] [address] Hemoglobin (Bld) [Mass/Vol] 14.9 g/dL Normal 11.4-15.2 [facility] Comment on above: Performed By: #### L [id number] #### [facility] (DEFAULT) [address] [address] Immature Grans % 0.2 % Normal [facility] Comment on above: Performed By: #### L [id number] #### U [facility] (DEFAULT) [address] [address] Immature Grans Absolute < Normal <=0.08 O [facility] Comment on above: Performed By: #### L [id number] #### [facility] (DEFAULT) [address] [address] Lymphocytes (Bld) [#/Vol] 2.22 10*3/uL Normal 1.16-3.51 [facility] Comment on above: Performed By: #### L [id number] #### [facility] (DEFAULT) [address] [place] [address] Lymphocytes/100 WBC (Bld) 26.8 % Normal [facility] Comment on above: Performed By: #### L [id number] #### U [facility] (DEFAULT) [address] [place] [address] MCV (RBC) [Entitic vol] 91.5 fL Normal 79.6-97.7 O [facility] Comment on above: Performed By: #### L [id number] #### [facility] (DEFAULT) [address] [place] [address] Mean Cell Hgb 30.2 pg Normal 25.9-33.9 [facility] Comment on above: Performed By: #### L [id number] #### [facility] (DEFAULT) [address] [place] [address] Mean Cell Hgb Conc 33.0 g/dL Normal 31.4-35.9 [facility] Comment on above: Performed By: #### L [id number] #### [facility] (DEFAULT) [address] [place] [address] Monocytes (Bld) [#/Vol] 0.65 10*3/uL Normal 0.22-0.87 [facility] Comment on above: Performed By: #### L [id number] #### [facility] (DEFAULT) [address] [place] [address] Monocytes/100 WBC (Bld) 7.9 % Normal O [facility] Comment on above: Performed By: #### L [id number] #### [facility] (DEFAULT) [address] [place] [address] Nucleated RBC 0.0 /100 WBC Normal <=0.2 [facility] Comment on above: Performed By: #### L [id number] #### [facility] (DEFAULT) [address] [place] [address] Platelet mean volume (Bld) [Entitic vol] 9.2 fL Normal 8.5-12.2 [facility] Comment on above: Performed By: #### L [id number] #### [facility] (DEFAULT) [address] [address] Platelets (Bld) [#/Vol] 236 10*3/uL Normal 150-393 [facility] Comment on above: Performed By: #### L [id number] #### [facility] (DEFAULT) [address] [address] RBC (Bld) [#/Vol] 4.94 10*6/uL Normal 3.91-5.04 [facility] Comment on above: Performed By: #### L [id number] #### [facility] (DEFAULT) [address] [address] RBC Distribution 13.3 % Normal 10.8-14.9 [facility] Comment on above: Performed By: #### L [id number] #### [facility] (DEFAULT) [address] [address] Segs + Bands Auto 62.8 % Normal [facility] Comment on above: Performed By: #### L [id number] #### [facility] (DEFAULT) [address] [address] Segs + Bands,Absolute Auto 5.19 K/uL Normal 1.64-7.28 [facility] Comment on above: Performed By: #### L [id number] #### [facility] (DEFAULT) [address] [address] WBC (Bld) [#/Vol] 8.27 10*3/uL Normal 3.99-11.19 [facility] Comment on above: Performed By: #### L [id number] #### [facility] (DEFAULT) [address] [address] Basophils (Bld) [#/Vol] 0.05 10*3/uL 0.00 - 0.15 K/uL [facility] Basophils/100 WBC (Bld) 0.6 % O [facility] Differential cell count method Nom (Bld) Electronic Differential [facility] Eosinophils (Bld) [#/Vol] 0.14 10*3/uL 0.00 - 0.42 K/uL [facility] Eosinophils/100 WBC (Bld) 1.7 % [facility] Erythrocyte distribution width (RBC) [Ratio] 13.3 % 10.8 - 14.9 % [facility] Hematocrit (Bld) [Volume fraction] 45.2 % High 34.9 - 44.3 % [facility] Hemoglobin (Bld) [Mass/Vol] 14.9 g/dL 11.4 - 15.2 g/dL [facility] Immature granulocytes (Bld) [#/Vol] K/uL NINF - 0.08 K/uL [facility] Immature granulocytes/100 WBC (Bld) 0.2 % [facility] Interpretation and review of laboratory results Abnormal [facility] Lymphocytes (Bld) [#/Vol] 2.22 10*3/uL 1.16 - 3.51 K/uL [facility] Lymphocytes/100 WBC (Bld) 26.8 % [facility] MCH (RBC) [Entitic mass] 30.2 pg 25. 9 - 33.9 pg [facility] MCHC (RBC) [Mass/Vol] 33.0 g/dL 31.4 - 35.9 g/dL [facility] MCV (RBC) [Entitic vol] 91.5 fL 79.6 - 97.7 fL [facility] Monocytes (Bld) [#/Vol] 0.65 10*3/uL 0.22 - 0.87 K/uL [facility] Monocytes/100 WBC (Bld) 7.9 % O [facility] Neutrophils (Bld) [#/Vol] 5.19 10*3/uL 1.64 - 7.28 K/uL [facility] Nucleated RBC/100 WBC (Bld) [Ratio] 0.0 % [facility] Platelet mean volume (Bld) [Entitic vol] 9.2 fL 8.5 - 12.2 fL [facility] Platelets (Bld) [#/Vol] 236 10*3/uL 150 - 393 K/uL [facility] RBC (Bld) [#/Vol] 4.94 10*6/uL [facility] Segmented neutrophils/100 WBC (Bld) 62.8 % [facility] WBC (Bld) [#/Vol] 8.27 10*3/uL 3.99 - 11. 19 K/uL [facility] CHEM 7 (LYTES,BUN,CREA,GLUC) on 03-30-2023 Anion gap [Moles/Vol] 14 mmol/L Normal 7-17 [facility] Comment on above: Performed By: #### C HM7 #### [facility] (DEFAULT) [address] [place] [address] Chloride [Moles/Vol] 108 mmol/L Normal 98-108 [facility] Comment on above: Performed By: #### C HM7 #### [facility] (DEFAULT) [address] [place] [address] CO2 [Moles/Vol] 22 mmol/L Normal - [facility] Comment on above: Performed By: #### C HM7 #### [facility] (DEFAULT) [address] [place] [address] Creatinine [Mass/Vol] 1.09 mg/dL Normal 0.50-1.20 [facility] Comment on above: Performed By: #### C HM7 #### [facility] (DEFAULT) [address] [place] [address] GFR/1.73 sq M.predicted among non-blacks MDRD (S/P/Bld) [Vol rate/Area] 55 mL/min/{1.73_m2} Low >=60 [facility] Comment on above: Result Comment: Repo rted eGFR is based on the CKD-EPI 2020 equation using creatinine, age, and sex. Performed By: #### C HM7 #### [facility] (DEFAULT) [address] [place] [address] Glucose [Mass/Vol] 89 mg/dL Normal 70-99 [facility] Comment on above: Performed By: #### C HM7 #### U [facility] (DEFAULT) [address] [place] [address] Osmolality [Osmolality] 296 mosm/kg Normal 278-305 [facility] Comment on above: Performed By: #### C HM7 #### [facility] (DEFAULT) [address] [place] [address] Potassium [Moles/Vol] 4.2 mmol/L Normal 3.5-5.0 [facility] Comment on above: Performed By: #### C HM7 #### [facility] (DEFAULT) [address] [place] [address] Sodium [Moles/Vol] 140 mmol/L Normal 135-145 [facility] Comment on above: Performed By: #### C HM7 #### [facility] (DEFAULT) [address] [place] [address] Urea nitrogen [Mass/Vol] 23 mg/dL Normal 7-25 [facility] Comment on above: Performed By: #### C HM7 #### [facility] (DEFAULT) [address] [place] [address] Urea nitrogen/Creatinine [Mass ratio] 21 mg/mg Normal [facility] Comment on above: Performed By: #### C HM7 #### [facility] (DEFAULT) [address] [place] [address] Anion gap [Moles/Vol] 14 mmol/L 7 - 17 mmol/L [facility] Chloride [Moles/Vol] 108 mmol/L 98 - 10 8 mmol/L [facility] CO2 [Moles/Vol] 22 mmol/L 21 - 31 mmol/L [facility] Creatinine [Mass/Vol] 1.09 mg/dL 0.50 - 1.20 mg/dL [facility] eGFR, CKD-EPI, Female 53 Low - PINF [facility] Comment on above: Reported eGFR is bas ed on the CKD-EPI 2020 equation using creatinine, age, and sex. Glucose [Mass/Vol] 89 mg/dL 70 - 99 mg/dL [facility] Interpretation and review of laboratory results Abnormal [facility] Osmolality Calc [Osmolality] 296 [facility] Potassium [Moles/Vol] 4.2 mmol/L 3.5 - 5.0 mmol/L [facility] Sodium [Moles/Vol] 140 mmol/L 135 - 145 mmol/L [facility] Urea nitrogen [Mass/Vol] 23 mg/dL 7 - 25 mg/d L [facility] Urea nitrogen/Creatinine [Mass ratio] 21 mg/mg [facility] CREAT/GFRon 03-30-2023 Creatinine [Mass/Vol] 0.61 mg/dL 0.50 - 1.20 mg/dL [facility] GFR/1.73 sq M.predicted CKD-EPI (S/P/Bld) [Vol rate/Area] - [facility] Comment on above: Reported eGFR is bas ed on the CKD-EPI 2020 equation using creatinine, age, and sex. Interpretation and review of laboratory results Normal [facility] Test performed at address of the patient encounter. [facility] CT CARDIAC PULMONARY VENOGRA Wed03-30-2023 CT CARDIAC PULMONARY VENOGRAM [facility] CT Report Name: BEULAH MCPHERSON [...] SCAN INFO ====== TEST TYPE: Venogram SCANNER PARKING METER ATTENDANT: Poynt SCANNER MODEL: [employer] CT750 [employer] DOSE REDUCTION ALGORITHM: Helical with dose modulation [...] MD TECHNOLOGIST: Chelsey Morales ====== Patient Account [id number] CPT Codes 22722 ICD10 Codes I48.19, I48.3 Report generated by [email or web address], a product of [employer] [facility] CT Report Name: BEULAH MCPHERSON : 1955 [...] SCAN INFO ====== TEST TYPE: Venogram SCANNER PARKING METER ATTENDANT: Poynt SCANNER MODEL: [employer]750 [employer] DOSE REDUCTION ALGORITHM: Helical with dose modulation [...] MD TECHNOLOGIST: Chelsey Morales ====== Patient Account [id number] CPT Codes 59592 ICD10 Codes I48.19, I48.3 Report generated by [email or web address], a product of [employer] CARDIOLOGY Carmelina Pickett MD - 03/30/2023 [facility] CT Report Name: BEULAH MCPHERSON [...] good. SCAN INFO TEST TYPE: Venogram SCANNER PARKING METER ATTENDANT: Poynt SCANNER MODEL: [employer]750 [employer] DOSE REDUCTION ALGORITHM: Helical with dose modulation [...] Rosa MD TECHNOLOGIST: Chelsey Morales Patient Account [id number] CPT Codes 63780 ICD10 Codes I48.19, I48.3 Report generated by [employer], a product of [employer] [facility] Radiology Study observation (narrative) [facility] CT CARDIAC PULMONARY VENOGRA MOrdered By: Carmelina Pickett on 03-30-2023 [facility] Work Phone: PT,INR,PTTon 03-30-2023 aPTT Coag (Bld) [Time] 35.5 s High 24.0-34.3 [facility] Comment on above: Performed By: #### P TPTT #### [facility] (DEFAULT) [address] [place] [address] INR Coag (PPP) [Relative time] 1.2 {INR} High 0.9-1.1 [facility] Comment on above: Performed By: #### P TPTT #### [facility] (DEFAULT) [address] [address] PT Coag (PPP) [Time] 15.3 s High 11.9-14.2 [facility] Comment on above: Performed By: #### P TPTT #### [facility] (DEFAULT) [address] [address] aPTT Coag (PPP) [Time] 35.5 s High [facility] INR Coag (Bld) [Relative time] 1.2 {INR} High 0.9 - 1.1 [facility] Interpretation and review of laboratory results Abnormal [facility] PT Coag (PPP) [Time] 15.3 s High [facility] Absolute lymphocyte countOrd ered By: Doug Barone on 02-25-2023 Lymphocytes Auto (Unsp spec) [#/Vol] 2.29 10*3/uL 0.83-4.51 [facility] Basophil percentageOrdered B y: Doug Barone on 02-25-2023 Basophils/100 WBC (Bld) 0.5 % 0-1 [facility] Chloride [Moles/Vol] 109 mmol/L 98-107 [facility] Eosinophils/100 WBC (Bld) 1.4 % 0-5 [facility] Glucose [Mass/Vol] 102 mg/dL 74-106 [facility] Comment on above: Fasting Glucose resu lt from 100 to 125 mg/dL suggests IMPAIRED HOMEOSTASIS per A.D.A. criteria. Neutrophils (Bld) [#/Vol] 4.5 10*3/uL 2.0-7.7 [facility] Neutrophils/100 WBC (Bld) 59.9 % 47-70 [facility] Potassium [Moles/Vol] 4.1 mmol/L 3.5-5.1 [facility] Sodium [Moles/Vol] 140 mmol/L 136-145 [facility] WBC (Bld) [#/Vol] 7.6 10*3/uL 4.4-11.0 [facility] Blood erythrocytes count (nu mber/volume)Ordered By: Doug Barone on 02-25-2023 RBC (Bld) [#/Vol] 5.00 10*6/uL 4.2-5.4 [facility] Blood hemoglobin measurement (mass/volume)Ordered By: Doug Barone on 02-25-2023 Hemoglobin (Bld) [Mass/Vol] 15.1 g/dL 12.0-15.0 [facility] Blood lymphocytes/100 leukoc ytesOrdered By: Doug Barone on 02-25-2023 Lymphocytes/100 WBC (Bld) 30.2 % 19-41 [facility] Blood monocytes/100 leukocyt esOrdered By: Doug Barone on 02-25-2023 Monocytes/100 WBC (Bld) 7.9 % 0-10 [facility] Blood platelet mean volumeOr dered By: Doug Barone on 02-25-2023 Platelet mean volume (Bld) [Entitic vol] 9.4 fL 6.2-12.0 [facility] Determination of erythrocyte mean corpuscular volume (MCV)Ordered By: Doug Barone on 02-25-2023 MCV (RBC) [Entitic vol] 93.0 fL 81-99 [facility] Hematocrit Auto (Bld) [Volum e fraction]Ordered By: Doug Barone on 02-25-2023 Hematocrit (Bld) [Volume fraction] 46.5 % 37-47 [facility] INR in Blood by Coagulation assayOrdered By: Doug Barone on 02-25-2023 INR Coag (Bld) [Relative time] 1.2 {INR} [facility] Laboratory - Chemistry and C hemistry - challengeOrdered By: Doug Barone on 02-25-2023 CO2 [Moles/Vol] 27.0 mmol/L 21.0-32.0 [facility] Urea nitrogen/Creatinine [Mass ratio] 21.4 mg/mg 10-20 [facility] Laboratory - CoagulationOrde red By: Doug Barone on 02-25-2023 aPTT Coag (Bld) [Time] 35.1 s 24.1-36.2 [facility] PT Coag (PPP) [Time] 15.2 s 11.7-14.9 [facility] Laboratory - Hematology and Cell countsOrdered By: Doug Barone on 02-25-2023 Erythrocyte distribution width (RBC) [Entitic vol] 44.3 fL 35.1-43.9 [facility] Erythrocyte distribution width (RBC) [Ratio] 13.0 % 11.6-14.6 [facility] Immature granulocytes/100 WBC (Bld) 0.100 % 0.0-0.9 [facility] Comment on above: IG% - Immature Granu locytes (promyelocytes, myelocytes and metamyelocytes) > 1% indicates that a LEFT SHIFT is Present. MCH (RBC) [Entitic mass] 30.2 pg 27.0-32.0 [facility] Nucleated RBC/100 WBC (Bld) [Ratio] 0 % 0-5 [facility] MCHC Auto (RBC) [Mass/Vol]Or dered By: Doug Barone on 02-25-2023 MCHC (RBC) [Mass/Vol] 32.5 g/dL 32-36 [facility] No Panel InformationOrdered By: Doug Barone on 02-25-2023 Estimated GFR (MDRD) Amer 62 mL/min >60 [facility] Comment on above: GFR Calc Estimated GFR (MDRD) Non-Af Amer 51 mL/min >60 [facility] Comment on above: Non- GFR Calc Troponin I High Sensitivity 9 pg/mL 3.0-54.0 [facility] Comment on above: Please Note: [place] t Units and Gender Specific Reference Ranges. For more information see Policy Stat Procedure [employer] High Sensitivity Troponin (TNIH) and attachments. Platelets bldOrdered By: Lacy Barone on 02-25-2023 Platelets (Bld) [#/Vol] 220 10*3/uL 150-450 [facility] Serum or plasma calcium leah urement (mass/volume)Ordered By: Doug Barone on 02-25-2023 Calcium [Mass/Vol] 8.9 mg/dL 8.5-10.1 [facility] Serum or plasma creatinine m easurement (mass/volume)Ordered By: Doug Barone on 02-25-2023 Creatinine [Mass/Vol] 1.12 mg/dL 0.55-1.02 [facility] Comment on above: The validity of the calculated GFR & GFRAA in patients over 70 years has not been determined. Clinical correlation is essential. Serum or plasma urea nitroge n measurement (mass/volume)Ordered By: Doug Barone on 02-25-2023 Urea nitrogen [Mass/Vol] 24 mg/dL 7-18 [facility] Thin prep Papanicolaou smear with manual screeningOrdered By: Doug Barone on 02-25-2023 Thin prep Papanicolaou smear with manual screening 4 5-15 [facility] Absolute lymphocyte countOrd ered By: Ansley Ponce on 11-08-2022 Lymphocytes Auto (Unsp spec) [#/Vol] 3.07 10*3/uL 0.83-4.51 [facility] Basophil percentageOrdered B y: Ansley Ponce on 11-08-2022 Basophils/100 WBC (Bld) 0.6 % 0-1 [facility] Chloride [Moles/Vol] 108 mmol/L 98-107 [facility] [place] Eosinophils/100 WBC (Bld) 2.3 % 0-5 [facility] Glucose [Mass/Vol] 103 mg/dL 74-106 [facility] Comment on above: Fasting Glucose resu lt from 100 to 125 mg/dL suggests IMPAIRED HOMEOSTASIS per A.D.A. criteria. Neutrophils (Bld) [#/Vol] 4.6 10*3/uL 2.0-7.7 [facility] Neutrophils/100 WBC (Bld) 53.1 % 47-70 [facility] Potassium [Moles/Vol] 4.3 mmol/L 3.5-5.1 [facility] Sodium [Moles/Vol] 141 mmol/L 136-145 [facility] WBC (Bld) [#/Vol] 8.6 10*3/uL 4.4-11.0 [facility] Blood erythrocytes count (nu mber/volume)Ordered By: Ansley Ponce on 11-08-2022 RBC (Bld) [#/Vol] 4.57 10*6/uL 4.2-5.4 [facility] Blood hemoglobin measurement (mass/volume)Ordered By: Ansley Ponce on 11-08-2022 Hemoglobin (Bld) [Mass/Vol] 14.1 g/dL 12.0-15.0 [facility] Blood lymphocytes/100 leukoc ytesOrdered By: Ansley Ponce on 11-08-2022 Lymphocytes/100 WBC (Bld) 35.8 % 19-41 [facility] Blood monocytes/100 leukocyt esOrdered By: Ansley Ponce on 11-08-2022 Monocytes/100 WBC (Bld) 7.8 % 0-10 [facility] Blood platelet mean volumeOr dered By: Ansley Ponce on 11-08-2022 Platelet mean volume (Bld) [Entitic vol] 9.2 fL 6.2-12.0 [facility] Determination of erythrocyte mean corpuscular volume (MCV)Ordered By: Ansley Ponce on 11-08-2022 MCV (RBC) [Entitic vol] 95.4 fL 81-99 [facility] Hematocrit Auto (Bld) [Volum e fraction]Ordered By: Ansley Ponce on 11-08-2022 Hematocrit (Bld) [Volume fraction] 43.6 % 37-47 [facility] Laboratory - Chemistry and C hemistry - challengeOrdered By: Bancroft Rosario on 11-08-2022 CO2 [Moles/Vol] 28.0 mmol/L 21.0-32.0 [facility] Urea nitrogen/Creatinine [Mass ratio] 20.5 mg/mg 10-20 [facility] Laboratory - Hematology and Cell countsOrdered By: [facility] on 11-08-2022 Erythrocyte distribution width (RBC) [Entitic vol] 45.1 fL 35.1-43.9 [facility] Erythrocyte distribution width (RBC) [Ratio] 12.9 % 11.6-14.6 [facility] Immature granulocytes/100 WBC (Bld) 0.400 % 0.0-0.9 [facility] Comment on above: IG% - Immature Granu locytes (promyelocytes, myelocytes and metamyelocytes) > 1% indicates that a LEFT SHIFT is Present. MCH (RBC) [Entitic mass] 30.9 pg 27.0-32.0 [facility] Nucleated RBC/100 WBC (Bld) [Ratio] 0 % 0-5 [facility] MCHC Auto (RBC) [Mass/Vol]Or dered By: Ansley Ponce on 11-08-2022 MCHC (RBC) [Mass/Vol] 32.3 g/dL 32-36 [facility] No Panel InformationOrdered By: Ansley Ponce on 11-08-2022 Estimated Creatinine Clearance Calc 52.69 ml/min [facility] Estimated GFR (MDRD) Amer 73 mL/min >60 [facility] Comment on above: GFR Calc Estimated GFR (MDRD) Non-Af Amer 60 mL/min >60 [facility] Comment on above: Non- GFR Calc Troponin I High Sensitivity 7 pg/mL 3.0-54.0 [facility] Comment on above: Please Note: New Y[place] t Units and Gender Specific Reference Ranges. For more information see Policy Stat Procedure [facility] High Sensitivity Troponin (TNIH) and attachments. Platelets bldOrdered By: Karmen Ponce on 11-08-2022 Platelets (Bld) [#/Vol] 260 10*3/uL 150-450 [facility] Serum or plasma calcium leah urement (mass/volume)Ordered By: [facility] العراقيkathy on 11-08-2022 Calcium [Mass/Vol] 9.1 mg/dL 8.5-10.1 [facility] Serum or plasma creatinine m easurement (mass/volume)Ordered By: [facility] العراقيkathy on 11-08-2022 Creatinine [Mass/Vol] 0.98 mg/dL 0.55-1.02 [facility] Comment on above: The validity of the calculated GFR & GFRAA in patients over 70 years has not been determined. Clinical correlation is essential. Serum or plasma urea nitroge n measurement (mass/volume)Ordered By: [facility] العراقيkathy on 11-08-2022 Urea nitrogen [Mass/Vol] 20 mg/dL 7-18 [facility] Thin prep Papanicolaou smear with manual screeningOrdered By: [facility] العراقيkathy on 11-08-2022 Thin prep Papanicolaou smear with manual screening 5 5-15 [facility] Absolute lymphocyte countOrd ered By: Barbie Tolbert on 10-21-2022 Lymphocytes Auto (Unsp spec) [#/Vol] 2.31 10*3/uL 0.83-4.51 [facility] Basophil percentageOrdered B y: Barbie Tolbert on 10-21-2022 Basophils/100 WBC (Bld) 0.5 % 0-1 [facility] Chloride [Moles/Vol] 108 mmol/L 98-107 [facility] [place] Eosinophils/100 WBC (Bld) 2.1 % 0-5 [facility] Glucose [Mass/Vol] 111 mg/dL 74-106 [facility] Comment on above: Fasting Glucose resu lt from 100 to 125 mg/dL suggests IMPAIRED HOMEOSTASIS per A.D.A. criteria. Neutrophils (Bld) [#/Vol] 4.5 10*3/uL 2.0-7.7 [facility] Neutrophils/100 WBC (Bld) 59.0 % 47-70 [facility] Potassium [Moles/Vol] 3.9 mmol/L 3.5-5.1 [facility] Sodium [Moles/Vol] 140 mmol/L 136-145 [facility] WBC (Bld) [#/Vol] 7.7 10*3/uL 4.4-11.0 [facility] Blood erythrocytes count (nu mber/volume)Ordered By: Barbie Tolbert on 10-21-2022 RBC (Bld) [#/Vol] 4.48 10*6/uL 4.2-5.4 [facility] Blood hemoglobin measurement (mass/volume)Ordered By: Barbie Tolbert on 10-21-2022 Hemoglobin (Bld) [Mass/Vol] 13.8 g/dL 12.0-15.0 [facility] Blood lymphocytes/100 leukoc ytesOrdered By: Barbie Tolbert on 10-21-2022 Lymphocytes/100 WBC (Bld) 30.0 % 19-41 [facility] Blood monocytes/100 leukocyt esOrdered By: Barbie Tolbert on 10-21-2022 Monocytes/100 WBC (Bld) 8.1 % 0-10 [facility] Blood platelet mean volumeOr dered By: Barbie Tolbert on 10-21-2022 Platelet mean volume (Bld) [Entitic vol] 9.5 fL 6.2-12.0 [facility] Determination of erythrocyte mean corpuscular volume (MCV)Ordered By: Barbie Tolbert on 10-21-2022 MCV (RBC) [Entitic vol] 94.6 fL 81-99 [facility] Hematocrit Auto (Bld) [Volum e fraction]Ordered By: Barbie Tolbert on 10-21-2022 Hematocrit (Bld) [Volume fraction] 42.4 % 37-47 [facility] Laboratory - Chemistry and C hemistry - challengeOrdered By: Barbie Tolbert on 10-21-2022 CO2 [Moles/Vol] 25.0 mmol/L 21.0-32.0 [facility] Urea nitrogen/Creatinine [Mass ratio] 26.4 mg/mg 10-20 [facility] Laboratory - Hematology and Cell countsOrdered By: Barbie Tolbert on 10-21-2022 Erythrocyte distribution width (RBC) [Entitic vol] 44.0 fL 35.1-43.9 [facility] Erythrocyte distribution width (RBC) [Ratio] 12.6 % 11.6-14.6 [facility] Immature granulocytes/100 WBC (Bld) 0.300 % 0.0-0.9 [facility] Comment on above: IG% - Immature Granu locytes (promyelocytes, myelocytes and metamyelocytes) > 1% indicates that a LEFT SHIFT is Present. MCH (RBC) [Entitic mass] 30.8 pg 27.0-32.0 [facility] Nucleated RBC/100 WBC (Bld) [Ratio] 0 % 0-5 [facility] MCHC Auto (RBC) [Mass/Vol]Or dered By: Barbie Tolbert on 10-21-2022 MCHC (RBC) [Mass/Vol] 32.5 g/dL 32-36 [facility] No Panel InformationOrdered By: Barbie Tolbert on 10-21-2022 Estimated GFR (MDRD) Amer 75 mL/min >60 [facility] Comment on above: GFR Calc Estimated GFR (MDRD) Non-Af Amer 62 mL/min >60 [facility] Comment on above: Non- GFR Calc Platelets bldOrdered By: Jeferson Tolbert on 10-21-2022 Platelets (Bld) [#/Vol] 227 10*3/uL 150-450 [facility] Serum or plasma calcium leah urement (mass/volume)Ordered By: Barbie Tolbert on 10-21-2022 Calcium [Mass/Vol] 8.9 mg/dL 8.5-10.1 [facility] Serum or plasma creatinine m easurement (mass/volume)Ordered By: Barbie Tolbert on 10-21-2022 Creatinine [Mass/Vol] 0.95 mg/dL 0.55-1.02 [facility] Comment on above: The validity of the calculated GFR & GFRAA in patients over 70 years has not been determined. Clinical correlation is essential. Serum or plasma urea nitroge n measurement (mass/volume)Ordered By: Barbie Tolbert on 10-21-2022 Urea nitrogen [Mass/Vol] 25 mg/dL - [facility] Thin prep Papanicolaou smear with manual screeningOrdered By: Barbie Tolbert on 10-21-2022 Thin prep Papanicolaou smear with manual screening 7 5-15 [facility] Absolute lymphocyte countOrd ered By: Dr. Parry on 09-16-2022 Lymphocytes Auto (Unsp spec) [#/Vol] 2.61 10*3/uL 0.83-4.51 [facility] Basophil percentageOrdered B y: Dr. Parry on 09-16-2022 Basophil percentage 0 SEEN /hpf 0-5 [facility] [place] Basophils/100 WBC (Bld) 0.4 % 0-1 [facility] Chloride [Moles/Vol] 104 mmol/L 98-107 [facility] [place] Eosinophils/100 WBC (Bld) 1.6 % 0-5 [facility] Glucose [Mass/Vol] 94 mg/dL 74-106 [facility] Neutrophils (Bld) [#/Vol] 5.5 10*3/uL 2.0-7.7 [facility] Neutrophils/100 WBC (Bld) 60.9 % 47-70 [facility] Potassium [Moles/Vol] 4.0 mmol/L 3.5-5.1 [facility] Sodium [Moles/Vol] 136 mmol/L 136-145 [facility] WBC (Bld) [#/Vol] 9.0 10*3/uL 4.4-11.0 [facility] Bilirubin Test strip Ql (U)O rdered By: Dr. Parry on 09-16-2022 Bilirubin Ql (U) Negative Negative [facility] Blood erythrocytes count (nu mber/volume)Ordered By: Dr. Parry on 09-16-2022 RBC (Bld) [#/Vol] 4.75 10*6/uL 4.2-5.4 [facility] Blood hemoglobin measurement (mass/volume)Ordered By: Dr. Prary on 09-16-2022 Hemoglobin (Bld) [Mass/Vol] 14.8 g/dL 12.0-15.0 [facility] Blood lymphocytes/100 leukoc ytesOrdered By: Dr. Parry on 09-16-2022 Lymphocytes/100 WBC (Bld) 29.1 % 19-41 [facility] Blood monocytes/100 leukocyt esOrdered By: Dr. Parry on 09-16-2022 Monocytes/100 WBC (Bld) 7.7 % 0-10 [facility] Blood platelet mean volumeOr dered By: Dr. Parry on 09-16-2022 Platelet mean volume (Bld) [Entitic vol] 9.1 fL 6.2-12.0 [facility] Determination of erythrocyte mean corpuscular volume (MCV)Ordered By: Dr. Parry on 09-16-2022 MCV (RBC) [Entitic vol] 93.3 fL 81-99 [facility] Hematocrit Auto (Bld) [Volum e fraction]Ordered By: Dr. Parry on 09-16-2022 Hematocrit (Bld) [Volume fraction] 44.3 % 37-47 [facility] Ketones Test strip Ql (U)Ord ered By: Dr. Parry on 09-16-2022 Ketones Ql (U) 5 mg/dl Negative [facility] Laboratory - Chemistry and C hemistry - challengeOrdered By: Dr. Parry on 09-16-2022 CO2 [Moles/Vol] 27.0 mmol/L 21.0-32.0 [facility] Natriuretic peptide B (Bld) [Mass/Vol] 40.8 pg/mL 0-100 [facility] Urea nitrogen/Creatinine [Mass ratio] 21.2 mg/mg 10-20 [facility] Laboratory - Hematology and Cell countsOrdered By: Dr. Parry on 09-16-2022 Erythrocyte distribution width (RBC) [Entitic vol] 43.0 fL 35.1-43.9 [facility] Erythrocyte distribution width (RBC) [Ratio] 12.5 % 11.6-14.6 [facility] Immature granulocytes/100 WBC (Bld) 0.300 % 0.0-0.9 [facility] Comment on above: IG% - Immature Granu locytes (promyelocytes, myelocytes and metamyelocytes) > 1% indicates that a LEFT SHIFT is Present. MCH (RBC) [Entitic mass] 31.2 pg 27.0-32.0 [facility] Nucleated RBC/100 WBC (Bld) [Ratio] 0 % 0-5 [facility] MCHC Auto (RBC) [Mass/Vol]Or dered By: Dr. Parry on 09-16-2022 MCHC (RBC) [Mass/Vol] 33.4 g/dL 32-36 [facility] Mucus LM Ql (Urine sed)Order ed By: Dr. Parry on 09-16-2022 Mucus Ql (Urine sed) 0 SEEN /hpf [facility] Nitrite Test strip Ql (U)Ord ered By: Dr. Parry on 09-16-2022 Nitrite Ql (U) Negative Negative [facility] No Panel InformationOrdered By: Dr. Parry on 09-16-2022 Estimated Creatinine Clearance Calc 52.15 ml/min [facility] Estimated GFR (MDRD) Amer 72 mL/min >60 [facility] Comment on above: GFR Calc Estimated GFR (MDRD) Non-Af Amer 59 mL/min >60 [facility] Comment on above: Non- GFR Calc Troponin I High Sensitivity 10 pg/mL 3.0-54.0 [facility] Comment on above: Please Note: New Ying t Units and Gender Specific Reference Ranges. For more information see Policy Stat Procedure [facility] High Sensitivity Troponin (TNIH) and attachments. Platelets bldOrdered By: Dr. Parry on 09-16-2022 Platelets (Bld) [#/Vol] 247 10*3/uL 150-450 [facility] Protein Test strip Ql (U)Ord ered By: Dr. Parry on 09-16-2022 Protein Ql (U) Negative Negative [facility] Serum or plasma calcium leah urement (mass/volume)Ordered By: Dr. Parry on 09-16-2022 Calcium [Mass/Vol] 9.4 mg/dL 8.5-10.1 [facility] Serum or plasma creatinine m easurement (mass/volume)Ordered By: Dr. Parry on 09-16-2022 Creatinine [Mass/Vol] 0.99 mg/dL 0.55-1.02 [facility] Comment on above: The validity of the calculated GFR & GFRAA in patients over 70 years has not been determined. Clinical correlation is essential. Serum or plasma urea nitroge n measurement (mass/volume)Ordered By: Dr. Parry on 09-16-2022 Urea nitrogen [Mass/Vol] 21 mg/dL 7-18 [facility] Squamous epithelial cells de tection in urine sediment by light microscopyOrdered By: Dr. Parry on 09-16-2022 Epithelial cells.squamous LM Ql (Urine sed) 0-5 SEEN /hpf 5-10 [facility] Thin prep Papanicolaou smear with manual screeningOrdered By: Dr. Parry on 09-16-2022 Thin prep Papanicolaou smear with manual screening 5 5-15 [facility] Urine blood detectionOrdered By: Dr. Parry on 09-16-2022 RBC Ql (U) Negative Negative [facility] RBC Ql (U) 0 SEEN /hpf 0-5 [facility] Urine clarityOrdered By: Dr. Parry on 09-16-2022 Clarity (U) Clear Clear [facility] Urine color determinationOrd ered By: Dr. Parry on 09-16-2022 Color (U) Straw Yellow [facility] Urine glucose detectionOrder ed By: Dr. Parry on 09-16-2022 Glucose Ql (U) Normal mg/dl Normal [facility] Urine leukocyte esterase det ection by dipstickOrdered By: Dr. Parry on 09-16-2022 Leukocyte esterase Test strip Ql (U) Negative Negative [facility] Urine pHOrdered By: Dr. Ruben lainez on 09-16-2022 pH (U) 6.5 [pH] 5.0 - 8.0 [facility] Urine sediment bacteria coun t by microscopy (number/high power field)Ordered By: Dr. Parry on 09-16-2022 Bacteria LM.HPF (Urine sed) [#/Area] 0 /[HPF] None Seen [facility] Urine specific gravity measu rementOrdered By: Dr. Parry on 09-16-2022 Specific gravity (U) [Rel density] 1.005 1.002-1.030 [facility] Urobilinogen Auto test strip Ql (U)Ordered By: Dr. Parry on 09-16-2022 Urobilinogen Ql (U) Normal mg/dl Normal [facility] Basophil percentageon 2021 Basophil percentage 0 SEEN /hpf 0-5 [facility] [place] Work Phone: Bilirubin Test strip Ql (U)o n 04-04-2022 Bilirubin Ql (U) Negative Negative [facility] Work Phone: Ketones Test strip Ql (U)on 04-04-2022 Ketones Ql (U) Negative Negative [facility] Work Phone: Mucus LM Ql (Urine sed)on Mucus Ql (Urine sed) 0 SEEN /hpf [facility] Work Phone: Nitrite Test strip Ql (U)on 04-04-2022 Nitrite Ql (U) Negative Negative [facility] Work Phone: Protein Test strip Ql (U)on 04-04-2022 Protein Ql (U) 15 mg/dl Negative [facility] Work Phone: Squamous epithelial cells de tection in urine sediment by light microscopyon 04-04-2022 Epithelial cells.squamous LM Ql (Urine sed) 0 SEEN /hpf 5-10 [facility] Work Phone: Urine blood detectionon RBC Ql (U) 10 /ul Negative [facility] Work Phone: RBC Ql (U) 0 SEEN /hpf 0-5 [facility] Work Phone: Urine clarityon 04-04-2022 Clarity (U) Clear Clear [facility] Work Phone: Urine color determinationon 04-04-2022 Color (U) Yellow Yellow [facility] Work Phone: Urine glucose detectionon Glucose Ql (U) Normal mg/dl Normal [facility] Work Phone: Urine leukocyte esterase det ection by dipstickon 04-04-2022 Leukocyte esterase Test strip Ql (U) 25 /ul Negative [facility] Work Phone: Urine pHon 04-04-2022 pH (U) 6.0 [pH] 5.0 - 8.0 [facility] Work Phone: Urine sediment bacteria coun t by microscopy (number/high power field)on 04-04-2022 Bacteria LM.HPF (Urine sed) [#/Area] 0 /[HPF] None Seen [facility] Work Phone: Urine specific gravity measu rementon 04-04-2022 Specific gravity (U) [Rel density] 1.015 1.002-1.030 [facility] Work Phone: Urobilinogen Auto test strip Ql (U)on 04-04-2022 Urobilinogen Ql (U) Normal mg/dl Normal [facility] Work Phone: Basophil percentageon 2021 Chloride [Moles/Vol] 105 mmol/L 98-107 [facility] [place] Work Phone: Glucose [Mass/Vol] 97 mg/dL 74-106 [facility] Work Phone: Potassium [Moles/Vol] 4.3 mmol/L 3.5-5.1 [facility] Work Phone: Sodium [Moles/Vol] 138 mmol/L 136-145 [facility] Work Phone: WBC (Bld) [#/Vol] 8.5 10*3/uL 4.4-11.0 [facility] Work Phone: Blood erythrocytes count (nu mber/volume)on 04-03-2022 RBC (Bld) [#/Vol] 4.74 10*6/uL 4.2-5.4 [facility]: Blood hemoglobin measurement (mass/volume)on 04-03-2022 Hemoglobin (Bld) [Mass/Vol] 14.8 g/dL 12.0-15.0 [facility] Work Phone: Blood platelet mean volumeon 04-03-2022 Platelet mean volume (Bld) [Entitic vol] 9.5 fL 6.2-12.0 [facility] Work Phone: Determination of erythrocyte mean corpuscular volume (MCV)on 04-03-2022 MCV (RBC) [Entitic vol] 94.7 fL 81-99 [facility] Work Phone: Hematocrit Auto (Bld) [Volum e fraction]on 04-03-2022 Hematocrit (Bld) [Volume fraction] 44.9 % 37-47 [facility] Work Phone: Laboratory - Chemistry and C hemistry - challengeon 04-03-2022 CO2 [Moles/Vol] 29.0 mmol/L 21.0-32.0 [facility] Work Phone: Magnesium [Mass/Vol] 2.3 mg/dL 1.6-2.6 [facility] [place] Work Phone: Natriuretic peptide B (Bld) [Mass/Vol] 143.8 pg/mL 0-100 [facility] Work Phone: Urea nitrogen/Creatinine [Mass ratio] 23.5 mg/mg 10-20 [facility] Work Phone: Laboratory - Hematology and Cell countson 04-03-2022 Erythrocyte distribution width (RBC) [Entitic vol] 44.0 fL 35.1-43.9 [facility] Work Phone: Erythrocyte distribution width (RBC) [Ratio] 12.6 % 11.6-14.6 [facility] Work Phone: MCH (RBC) [Entitic mass] 31.2 pg 27.0-32.0 [facility] Work Phone: MCHC Auto (RBC) [Mass/Vol]on 04-03-2022 MCHC (RBC) [Mass/Vol] 33.0 g/dL 32-36 [facility] Work Phone: No Panel Informationon 04-03 Estimated GFR (MDRD) Amer 73 mL/min >60 [facility] Work Phone: Comment on above: GFR Calc Estimated GFR (MDRD) Non-Af Amer 60 mL/min >60 [facility] Work Phone: Comment on above: Non- GFR Calc Thyroid Stimulating Hormone (TSH) 1.04 uIU/mL 0.358-3.74 [facility] Work Phone: Platelets bldon 04-03-2022 Platelets (Bld) [#/Vol] 244 10*3/uL 150-450 [facility] Work Phone: Serum or plasma calcium leah urement (mass/volume)on 04-03-2022 Calcium [Mass/Vol] 9.4 mg/dL 8.5-10.1 [facility] Work Phone: Serum or plasma creatinine m easurement (mass/volume)on 04-03-2022 Creatinine [Mass/Vol] 0.98 mg/dL 0.55-1.02 [facility] Work Phone: Comment on above: The validity of the calculated GFR & GFRAA in patients over 70 years has not been determined. Clinical correlation is essential. Serum or plasma urea nitroge n measurement (mass/volume)on 04-03-2022 Urea nitrogen [Mass/Vol] 23 mg/dL 7-18 [facility] Work Phone: Thin prep Papanicolaou smear with manual screeningon 04-03-2022 Thin prep Papanicolaou smear with manual screening 4 5-15 [facility] Work Phone: Absolute lymphocyte counton 02-11-2022 Lymphocytes Auto (Unsp spec) [#/Vol] 2.32 10*3/uL 0.83-4.51 [facility] Work Phone: Basophil percentageon 2021 Basophils/100 WBC (Bld) 0.4 % 0-1 [facility] Work Phone: Chloride [Moles/Vol] 106 mmol/L 98-107 [facility] [place] Work Phone: Eosinophils/100 WBC (Bld) 1.6 % 0-5 [facility] Work Phone: Glucose [Mass/Vol] 117 mg/dL 74-106 [facility] Work Phone: Comment on above: Fasting Glucose resu lt from 100 to 125 mg/dL suggests IMPAIRED HOMEOSTASIS per A.D.A. criteria. Neutrophils (Bld) [#/Vol] 8.0 10*3/uL 2.0-7.7 [facility] Work Phone: Neutrophils/100 WBC (Bld) 70.1 % 47-70 [facility] Work Phone: Potassium [Moles/Vol] 4.3 mmol/L 3.5-5.1 [facility] Work Phone: Sodium [Moles/Vol] 140 mmol/L 136-145 [facility]: WBC (Bld) [#/Vol] 11.4 10*3/uL 4.4-11.0 [facility] Work Phone: Blood erythrocytes count (nu mber/volume)on 02-11-2022 RBC (Bld) [#/Vol] 5.17 10*6/uL 4.2-5.4 [facility] Work Phone: Blood hemoglobin measurement (mass/volume)on 02-11-2022 Hemoglobin (Bld) [Mass/Vol] 16.0 g/dL 12.0-15.0 [facility] Work Phone: Blood lymphocytes/100 leukoc yteson 02-11-2022 Lymphocytes/100 WBC (Bld) 20.4 % 19-41 [facility] Work Phone: Blood monocytes/100 leukocyt eson 02-11-2022 Monocytes/100 WBC (Bld) 7.1 % 0-10 [facility] Work Phone: Blood platelet mean volumeon 02-11-2022 Platelet mean volume (Bld) [Entitic vol] 9.6 fL 6.2-12.0 [facility] Work Phone: Determination of erythrocyte mean corpuscular volume (MCV)on 02-11-2022 MCV (RBC) [Entitic vol] 95.6 fL 81-99 [facility] Work Phone: Hematocrit Auto (Bld) [Volum e fraction]on 02-11-2022 Hematocrit (Bld) [Volume fraction] 49.4 % 37-47 [facility] Work Phone: Laboratory - Chemistry and C hemistry - challengeon 09-14-2022 CO2 [Moles/Vol] 27.0 mmol/L 21.0-32.0 [facility] Work Phone: Magnesium [Mass/Vol] 2.1 mg/dL 1.6-2.6 [facility] [place] Work Phone: Urea nitrogen/Creatinine [Mass ratio] 17.2 mg/mg 10-20 [facility] Work Phone: Laboratory - Hematology and Cell countson 02-11-2022 Erythrocyte distribution width (RBC) [Entitic vol] 46.5 fL 35.1-43.9 [facility] Work Phone: Erythrocyte distribution width (RBC) [Ratio] 13.2 % 11.6-14.6 [facility] Work Phone: Immature granulocytes/100 WBC (Bld) 0.400 % 0.0-0.9 [facility] Work Phone: Comment on above: IG% - Immature Granu locytes (promyelocytes, myelocytes and metamyelocytes) > 1% indicates that a LEFT SHIFT is Present. MCH (RBC) [Entitic mass] 30.9 pg 27.0-32.0 [facility] Work Phone: Nucleated RBC/100 WBC (Bld) [Ratio] 0 % 0-5 [facility] Work Phone: MCHC Auto (RBC) [Mass/Vol]on 02-11-2022 MCHC (RBC) [Mass/Vol] 32.4 g/dL 32-36 [facility] Work Phone: No Panel Informationon 02-11 Troponin I High Sensitivity 36 pg/mL 3.0-54.0 [facility] Work Phone: Comment on above: Please Note: New Ying t Units and Gender Specific Reference Ranges. For more information see Policy Stat Procedure Apex High Sensitivity Troponin (TNIH) and attachments. Estimated Creatinine Clearance Calc 40.91 ml/min [facility] Work Phone: Estimated GFR (MDRD) Amer 53 mL/min >60 [facility] Work Phone: Comment on above: GFR Calc Estimated GFR (MDRD) Non-Af Amer 44 mL/min >60 [facility] Work Phone: Comment on above: Non- GFR Calc Troponin I High Sensitivity 18 pg/mL 3.0-54.0 [facility] Work Phone: Comment on above: Please Note: New Ying t Units and Gender Specific Reference Ranges. For more information see Policy Stat Procedure Apex High Sensitivity Troponin (TNIH) and attachments. Platelets bldon 02-11-2022 Platelets (Bld) [#/Vol] 256 10*3/uL 150-450 [facility] Work Phone: Serum or plasma calcium leah urement (mass/volume)on 02-11-2022 Calcium [Mass/Vol] 9.5 mg/dL 8.5-10.1 [facility] Work Phone: Serum or plasma creatinine m easurement (mass/volume)on 02-11-2022 Creatinine [Mass/Vol] 1.28 mg/dL 0.55-1.02 [facility] Work Phone: Comment on above: The validity of the calculated GFR & GFRAA in patients over 70 years has not been determined. Clinical correlation is essential. Serum or plasma urea nitroge n measurement (mass/volume)on 02-11-2022 Urea nitrogen [Mass/Vol] 22 mg/dL 7-18 [facility] Work Phone: Thin prep Papanicolaou smear with manual screeningon 02-11-2022 Thin prep Papanicolaou smear with manual screening 7 5-15 [facility] Work Phone: Absolute lymphocyte counton 12-20-2021 Lymphocytes Auto (Unsp spec) [#/Vol] 0.97 10*3/uL 0.83-4.51 [facility] Work Phone: Basophil percentageon 2021 Basophil percentage 0 SEEN /hpf 0-5 [facility] Work Phone: Basophils/100 WBC (Bld) 0.5 % 0-1 [facility] Work Phone: [phone] Bilirubin [Mass/Vol] 0.40 mg/dL 0.20-1.00 [facility] Work Phone: [phone] Comment on above: For patients on eltr ombopag therapy, use of Dimension Apex TBIL is not recommended. Chloride [Moles/Vol] 110 mmol/L 98-107 [facility] Work Phone: Eosinophils/100 WBC (Bld) 0.2 % 0-5 [facility] Work Phone: Glucose [Mass/Vol] 109 mg/dL 74-106 [facility] Work Phone: Comment on above: Fasting Glucose resu lt from 100 to 125 mg/dL suggests IMPAIRED HOMEOSTASIS per A.D.A. criteria. Neutrophils (Bld) [#/Vol] 2.4 10*3/uL 2.0-7.7 [facility] Work Phone: Neutrophils/100 WBC (Bld) 54.8 % 47-70 [facility] Work Phone: Potassium [Moles/Vol] 4.3 mmol/L 3.5-5.1 [facility] Work Phone: Protein [Mass/Vol] 7.2 g/dL 6.4-8.2 [facility] Work Phone: Sodium [Moles/Vol] 138 mmol/L 136-145 [facility] Work Phone: WBC (Bld) [#/Vol] 4.4 10*3/uL 4.4-11.0 [facility] Work Phone: Bilirubin Test strip Ql (U)o n 12-20-2021 Bilirubin Ql (U) Negative Negative [facility] Work Phone: Blood erythrocytes count (nu mber/volume)on 12-20-2021 RBC (Bld) [#/Vol] 4.86 10*6/uL 4.2-5.4 [facility] Work Phone: Blood hemoglobin measurement (mass/volume)on 12-20-2021 Hemoglobin (Bld) [Mass/Vol] 15.5 g/dL 12.0-15.0 [facility] Work Phone: Blood lymphocytes/100 leukoc yteson 12-20-2021 Lymphocytes/100 WBC (Bld) 21.9 % 19-41 [facility] Work Phone: Blood monocytes/100 leukocyt eson 12-20-2021 Monocytes/100 WBC (Bld) 22.1 % 0-10 [facility] Work Phone: Blood platelet mean volumeon 12-20-2021 Platelet mean volume (Bld) [Entitic vol] 9.4 fL 6.2-12.0 [facility] Work Phone: Determination of erythrocyte mean corpuscular volume (MCV)on 12-20-2021 MCV (RBC) [Entitic vol] 94.4 fL 81-99 [facility] Work Phone: Direct bilirubinon 2 Bilirubin.direct [Mass/Vol] 0.13 mg/dL 0.00-0.30 [facility] Work Phone: Hematocrit Auto (Bld) [Volum e fraction]on 12-20-2021 Hematocrit (Bld) [Volume fraction] 45.9 % 37-47 [facility] Work Phone: Ketones Test strip Ql (U)on 12-20-2021 Ketones Ql (U) Negative Negative [facility] Work Phone: Laboratory - Chemistry and C hemistry - challengeon 12-20-2021 ALP [Catalytic activity/Vol] 55 U/L 45-117 [facility] Work Phone: ALT [Catalytic activity/Vol] 24 U/L 13-56 [facility] Work Phone: CO2 [Moles/Vol] 25.0 mmol/L 21.0-32.0 [facility] Work Phone: Globulin (S) [Mass/Vol] 3.7 g/dL 2.2-4.2 [facility] Work Phone: Urea nitrogen/Creatinine [Mass ratio] 11.8 mg/mg 10-20 [facility] Work Phone: Laboratory - Hematology and Cell countson 12-20-2021 Erythrocyte distribution width (RBC) [Entitic vol] 47.9 fL 35.1-43.9 [facility] Work Phone: Erythrocyte distribution width (RBC) [Ratio] 13.6 % 11.6-14.6 [facility] Work Phone: Immature granulocytes/100 WBC (Bld) 0.500 % 0.0-0.9 [facility] Work Phone: Comment on above: IG% - Immature Granu locytes (promyelocytes, myelocytes and metamyelocytes) > 1% indicates that a LEFT SHIFT is Present. MCH (RBC) [Entitic mass] 31.9 pg 27.0-32.0 [facility] Work Phone: Nucleated RBC/100 WBC (Bld) [Ratio] 0 % 0-5 [facility] Work Phone: MCHC Auto (RBC) [Mass/Vol]on 12-20-2021 MCHC (RBC) [Mass/Vol] 33.8 g/dL 32-36 [facility] Work Phone: Mucus LM Ql (Urine sed)on Mucus Ql (Urine sed) 0 SEEN /hpf [facility] Work Phone: Nitrite Test strip Ql (U)on 12-20-2021 Nitrite Ql (U) Negative Negative [facility] Work Phone: No Panel Informationon 12-20 Estimated Creatinine Clearance Calc 44.00 ml/min [facility] Work Phone: Estimated GFR (MDRD) Amer 58 mL/min >60 [facility] Work Phone: Comment on above: GFR Calc Estimated GFR (MDRD) Non-Af Amer 48 mL/min >60 [facility] Work Phone: Comment on above: Non- GFR Calc Platelets bldon 12-20-2021 Platelets (Bld) [#/Vol] 161 10*3/uL 150-450 [facility] Work Phone: Protein Test strip Ql (U)on 12-20-2021 Protein Ql (U) Negative Negative [facility] Work Phone: Serum or plasma albumin leah urement (mass/volume)on 12-20-2021 Albumin [Mass/Vol] 3.5 g/dL 3.2-5.0 [facility] Work Phone: Serum or plasma calcium leah urement (mass/volume)on 12-20-2021 Calcium [Mass/Vol] 8.9 mg/dL 8.5-10.1 [facility] Work Phone: Serum or plasma creatinine m easurement (mass/volume)on 12-20-2021 Creatinine [Mass/Vol] 1.19 mg/dL 0.55-1.02 [facility] Work Phone: Comment on above: The validity of the calculated GFR & GFRAA in patients over 70 years has not been determined. Clinical correlation is essential. Serum or plasma urea nitroge n measurement (mass/volume)on 12-20-2021 Urea nitrogen [Mass/Vol] 14 mg/dL 7-18 [facility] Work Phone: Squamous epithelial cells de tection in urine sediment by light microscopyon 12-20-2021 Epithelial cells.squamous LM Ql (Urine sed) 0 SEEN /hpf 5-10 [facility] Work Phone: Thin prep Papanicolaou smear with manual screeningon 12-20-2021 Thin prep Papanicolaou smear with manual screening 18 U/L 15-37 [facility] Work Phone: Thin prep Papanicolaou smear with manual screening 3 5-15 [facility] Work Phone: Urine blood detectionon 11-29 RBC Ql (U) 10 /ul Negative [facility] Work Phone: RBC Ql (U) 0 SEEN /hpf 0-5 [facility] Work Phone: Urine clarityon 12-20-2021 Clarity (U) Clear Clear [facility] Work Phone: Urine color determinationon 12-20-2021 Color (U) Yellow Yellow [facility] Work Phone: Urine glucose detectionon Glucose Ql (U) Normal mg/dl Normal [facility] Work Phone: Urine leukocyte esterase det ection by dipstickon 12-20-2021 Leukocyte esterase Test strip Ql (U) Negative Negative [facility] Work Phone: Urine pHon 12-20-2021 pH (U) 6.5 [pH] 5.0 - 8.0 [facility] Work Phone: Urine sediment bacteria coun t by microscopy (number/high power field)on 12-20-2021 Bacteria LM.HPF (Urine sed) [#/Area] RARE /hpf None Seen [facility] Work Phone: Urine specific gravity measu rementon 12-20-2021 Specific gravity (U) [Rel density] 1.005 1.002-1.030 [facility] Work Phone: Urobilinogen Auto test strip Ql (U)on 12-20-2021 Urobilinogen Ql (U) Normal mg/dl Normal [facility] Work Phone: Absolute lymphocyte counton 11-20-2021 Lymphocytes Auto (Unsp spec) [#/Vol] 2.66 10*3/uL 0.83-4.51 [facility] Work Phone: Basophil percentageon 2021 Basophils/100 WBC (Bld) 0.6 % 0-1 [facility] Work Phone: Bilirubin [Mass/Vol] 0.70 mg/dL 0.20-1.00 [facility] Work Phone: Comment on above: For patients on eltr ombopag therapy, use of Dimension Apex TBIL is not recommended. Chloride [Moles/Vol] 109 mmol/L 98-107 [facility] Work Phone: Eosinophils/100 WBC (Bld) 1.3 % 0-5 [facility] Work Phone: Glucose [Mass/Vol] 103 mg/dL 74-106 [facility] Work Phone: Comment on above: Fasting Glucose resu lt from 100 to 125 mg/dL suggests IMPAIRED HOMEOSTASIS per A.D.A. criteria. Neutrophils (Bld) [#/Vol] 5.5 10*3/uL 2.0-7.7 [facility] Work Phone: Neutrophils/100 WBC (Bld) 60.6 % 47-70 [facility] Work Phone: Potassium [Moles/Vol] 4.6 mmol/L 3.5-5.1 [facility] Work Phone: Protein [Mass/Vol] 7.6 g/dL 6.4-8.2 [facility] Work Phone: Sodium [Moles/Vol] 140 mmol/L 136-145 [facility] Work Phone: WBC (Bld) [#/Vol] 9.1 10*3/uL 4.4-11.0 [facility] Work Phone: Basophil percentage 25-50 SEEN /hpf 0-5 [facility] Work Phone: Bilirubin Test strip Ql (U)o n 11-20-2021 Bilirubin Ql (U) Negative Negative [facility] Work Phone: Blood erythrocytes count (nu mber/volume)on 11-20-2021 RBC (Bld) [#/Vol] 5.28 10*6/uL 4.2-5.4 [facility] Work Phone: Blood hemoglobin measurement (mass/volume)on 11-20-2021 Hemoglobin (Bld) [Mass/Vol] 15.9 g/dL 12.0-15.0 [facility] Work Phone: Blood lymphocytes/100 leukoc yteson 11-20-2021 Lymphocytes/100 WBC (Bld) 29.4 % 19-41 [facility] Work Phone: Blood monocytes/100 leukocyt eson 11-20-2021 Monocytes/100 WBC (Bld) 7.8 % 0-10 [facility] Work Phone: Blood platelet mean volumeon 11-20-2021 Platelet mean volume (Bld) [Entitic vol] 9.9 fL 6.2-12.0 [facility] Work Phone: Determination of erythrocyte mean corpuscular volume (MCV)on 11-20-2021 MCV (RBC) [Entitic vol] 94.1 fL 81-99 [facility] Work Phone: Hematocrit Auto (Bld) [Volum e fraction]on 11-20-2021 Hematocrit (Bld) [Volume fraction] 49.7 % 37-47 [facility] Work Phone: Ketones Test strip Ql (U)on 11-20-2021 Ketones Ql (U) 5 mg/dl Negative [facility] Work Phone: Laboratory - Chemistry and C hemistry - challengeon 11-20-2021 ALP [Catalytic activity/Vol] 56 U/L 45-117 [facility] Work Phone: ALT [Catalytic activity/Vol] 25 U/L 13-56 [facility] Work Phone: CO2 [Moles/Vol] 26.0 mmol/L 21.0-32.0 [facility] Work Phone: Globulin (S) [Mass/Vol] 3.8 g/dL 2.2-4.2 [facility] Work Phone: Natriuretic peptide B (Bld) [Mass/Vol] 182.8 pg/mL 0-100 [facility] Work Phone: Urea nitrogen/Creatinine [Mass ratio] 17.9 mg/mg 10-20 [facility] Work Phone: Laboratory - Hematology and Cell countson 11-20-2021 Erythrocyte distribution width (RBC) [Entitic vol] 51.7 fL 35.1-43.9 [facility] Work Phone: Erythrocyte distribution width (RBC) [Ratio] 14.8 % 11.6-14.6 [facility] Work Phone: Immature granulocytes/100 WBC (Bld) 0.300 % 0.0-0.9 [facility] Work Phone: Comment on above: IG% - Immature Granu locytes (promyelocytes, myelocytes and metamyelocytes) > 1% indicates that a LEFT SHIFT is Present. MCH (RBC) [Entitic mass] 30.1 pg 27.0-32.0 [facility] Work Phone: Nucleated RBC/100 WBC (Bld) [Ratio] 0 % 0-5 [facility] Work Phone: Laboratory - Microbiology an d Antimicrobial susceptibilityon 11-20-2021 SARS-CoV-2 (COVID-19) RNA SERGIO+probe Ql (Unsp spec) Not detected Not Detect [facility] Work Phone: Comment on above: Normal Reference [...] 11-20-2021 MCHC (RBC) [Mass/Vol] 32.0 g/dL 32-36 [facility] Work Phone: Mucus LM Ql (Urine sed)on Mucus Ql (Urine sed) 0 SEEN /hpf [facility] Work Phone: Nitrite Test strip Ql (U)on 11-20-2021 Nitrite Ql (U) Positive Negative [facility] Work Phone: No Panel Informationon 11-20 Vitamin D 25-Hydroxy 15.9 ng/mL [facility] Work Phone: Comment on above: Vitamin D 25(OH) Sta tus Range Deficiency <20 ng/mL (50nmol/L) Insufficiency 20 - 30 ng/mL (50 - 75 nmol/L) Sufficiency 30 - 100 ng/mL (75 - 250 nmol/L) Toxicity >100 ng/mL (>250 nmol/L) Estimated GFR (MDRD) Amer 56 mL/min >60 [facility] Work Phone: Comment on above: GFR Calc Estimated GFR (MDRD) Non-Af Amer 46 mL/min >60 [facility] Work Phone: Comment on above: Non- GFR Calc Thyroid Stimulating Hormone (TSH) 0.70 uIU/mL 0.358-3.74 [facility] Work Phone: Platelets bldon 11-20-2021 Platelets (Bld) [#/Vol] 270 10*3/uL 150-450 [facility] Work Phone: Protein Test strip Ql (U)on 11-20-2021 Protein Ql (U) 30 mg/dl Negative [facility] Work Phone: Serum or plasma albumin leah urement (mass/volume)on 11-20-2021 Albumin [Mass/Vol] 3.8 g/dL 3.2-5.0 [facility] Work Phone: Serum or plasma albumin/glob ulin mass ratioon 11-20-2021 Albumin/Globulin [Mass ratio] 1.0 {ratio} 0.9-2.4 [facility] Work Phone: Serum or plasma calcium leah urement (mass/volume)on 11-20-2021 Calcium [Mass/Vol] 9.4 mg/dL 8.5-10.1 [facility] Work Phone: Serum or plasma creatinine m easurement (mass/volume)on 11-20-2021 Creatinine [Mass/Vol] 1.23 mg/dL 0.55-1.02 [facility] Work Phone: Comment on above: The validity of the calculated GFR & GFRAA in patients over 70 years has not been determined. Clinical correlation is essential. Serum or plasma urea nitroge n measurement (mass/volume)on 11-20-2021 Urea nitrogen [Mass/Vol] 22 mg/dL 7-18 [facility] Work Phone: Squamous epithelial cells de tection in urine sediment by light microscopyon 11-20-2021 Epithelial cells.squamous LM Ql (Urine sed) 0-5 SEEN /hpf 5-10 [facility] Work Phone: Thin prep Papanicolaou smear with manual screeningon 11-20-2021 Thin prep Papanicolaou smear with manual screening 12 U/L 15-37 [facility] Work Phone: Thin prep Papanicolaou smear with manual screening 5 5-15 [facility] Work Phone: Urine blood detectionon 10-30 RBC Ql (U) 10 /ul Negative [facility] Work Phone: RBC Ql (U) 0 SEEN /hpf 0-5 [facility] Work Phone: Urine clarityon 11-20-2021 Clarity (U) Sl. Cloudy Clear [facility] Work Phone: Urine color determinationon 11-20-2021 Color (U) Yellow Yellow [facility] Work Phone: Urine glucose detectionon Glucose Ql (U) Normal mg/dl Normal [facility] Work Phone: Urine leukocyte esterase det ection by dipstickon 11-20-2021 Leukocyte esterase Test strip Ql (U) 500 /ul Negative [facility] Work Phone: Urine pHon 11-20-2021 pH (U) 5.0 [pH] 5.0 - 8.0 [facility] Work Phone: Urine sediment bacteria coun t by microscopy (number/high power field)on 11-20-2021 Bacteria LM.HPF (Urine sed) [#/Area] 2 /[HPF] None Seen [facility] Work Phone: Urine specific gravity measu rementon 11-20-2021 Specific gravity (U) [Rel density] 1.015 1.002-1.030 [facility] Work Phone: Urobilinogen Auto test strip Ql (U)on 11-20-2021 Urobilinogen Ql (U) 1 mg/dl Normal [facility] Work Phone: Absolute lymphocyte counton 11-18-2021 Lymphocytes Auto (Unsp spec) [#/Vol] 3.14 10*3/uL 0.83-4.51 [facility] Work Phone: Basophil percentageon 2021 Basophil percentage 0-5 SEEN /hpf 0-5 [facility] Work Phone: Basophils/100 WBC (Bld) 0.3 % 0-1 [facility] Work Phone: Chloride [Moles/Vol] 107 mmol/L 98-107 [facility] Work Phone: Eosinophils/100 WBC (Bld) 1.4 % 0-5 [facility] Work Phone: Glucose [Mass/Vol] 109 mg/dL 74-106 [facility] Work Phone: Comment on above: Fasting Glucose resu lt from 100 to 125 mg/dL suggests IMPAIRED HOMEOSTASIS per A.D.A. criteria. Neutrophils (Bld) [#/Vol] 4.6 10*3/uL 2.0-7.7 [facility] Work Phone: Neutrophils/100 WBC (Bld) 53.7 % 47-70 [facility] Work Phone: Potassium [Moles/Vol] 4.3 mmol/L 3.5-5.1 [facility] Work Phone: Sodium [Moles/Vol] 138 mmol/L 136-145 [facility] Work Phone: WBC (Bld) [#/Vol] 8.6 10*3/uL 4.4-11.0 [facility] Work Phone: Bilirubin Test strip Ql (U)o n 11-18-2021 Bilirubin Ql (U) Negative Negative [facility] Work Phone: Blood erythrocytes count (nu mber/volume)on 11-18-2021 RBC (Bld) [#/Vol] 5.11 10*6/uL [facility]2-[facility]: Blood hemoglobin measurement (mass/volume)on 11-18-2021 Hemoglobin (Bld) [Mass/Vol] 15.7 g/dL 12.0-15.0 [facility] Work Phone: Blood lymphocytes/100 leukoc yteson 11-18-2021 Lymphocytes/100 WBC (Bld) 36.6 % 19-41 [facility] Work Phone: Blood monocytes/100 leukocyt eson 11-18-2021 Monocytes/100 WBC (Bld) 7.9 % 0-10 [facility] Work Phone: Blood platelet mean volumeon 11-18-2021 Platelet mean volume (Bld) [Entitic vol] 9.4 fL 6.2-12.0 [facility] Work Phone: Determination of erythrocyte mean corpuscular volume (MCV)on 11-18-2021 MCV (RBC) [Entitic vol] 92.4 fL 81-99 [facility] Work Phone: Hematocrit Auto (Bld) [Volum e fraction]on 11-18-2021 Hematocrit (Bld) [Volume fraction] 47.2 % 37-47 [facility] Work Phone: Ketones Test strip Ql (U)on 11-18-2021 Ketones Ql (U) Negative Negative [facility] Work Phone: Laboratory - Chemistry and C hemistry - challengeon 11-18-2021 CO2 [Moles/Vol] 24.0 mmol/L 21.0-32.0 [facility] Work Phone: Natriuretic peptide B (Bld) [Mass/Vol] 174.2 pg/mL 0-100 [facility] Work Phone: Urea nitrogen/Creatinine [Mass ratio] 23.0 mg/mg 10-20 [facility] Work Phone: Laboratory - Hematology and Cell countson 11-18-2021 Erythrocyte distribution width (RBC) [Entitic vol] 50.4 fL 35.1-43.9 [facility] Work Phone: Erythrocyte distribution width (RBC) [Ratio] 14.7 % 11.6-14.6 [facility] Work Phone: Immature granulocytes/100 WBC (Bld) 0.100 % 0.0-0.9 [facility] Work Phone: Comment on above: IG% - Immature Granu locytes (promyelocytes, myelocytes and metamyelocytes) > 1% indicates that a LEFT SHIFT is Present. MCH (RBC) [Entitic mass] 30.7 pg 27.0-32.0 [facility] Work Phone: Nucleated RBC/100 WBC (Bld) [Ratio] 0 % 0-5 [facility] Work Phone: MCHC Auto (RBC) [Mass/Vol]on 11-18-2021 MCHC (RBC) [Mass/Vol] 33.3 g/dL 32-36 [facility] Work Phone: Mucus LM Ql (Urine sed)on Mucus Ql (Urine sed) 0 SEEN /hpf [facility] Work Phone: Nitrite Test strip Ql (U)on 11-18-2021 Nitrite Ql (U) Negative Negative [facility] Work Phone: No Panel Informationon 11-18 Estimated Creatinine Clearance Calc 43.11 ml/min [facility] Work Phone: Estimated GFR (MDRD) Amer 54 mL/min >60 [facility] Work Phone: Comment on above: GFR Calc Estimated GFR (MDRD) Non-Af Amer 45 mL/min >60 [facility] Work Phone: Comment on above: Non- GFR Calc Troponin I High Sensitivity 15 pg/mL 3.0-54.0 [facility] Work Phone: Comment on above: Please Note: New Ying t Units and Gender Specific Reference Ranges. For more information see Policy Stat Procedure Apex High Sensitivity Troponin (TNIH) and attachments. Platelets bldon 11-18-2021 Platelets (Bld) [#/Vol] 233 10*3/uL 150-450 [facility] Work Phone: Protein Test strip Ql (U)on 11-18-2021 Protein Ql (U) Negative Negative [facility] Work Phone: Serum or plasma calcium leah urement (mass/volume)on 11-18-2021 Calcium [Mass/Vol] 9.5 mg/dL 8.5-10.1 [facility] Work Phone: Serum or plasma creatinine m easurement (mass/volume)on 11-18-2021 Creatinine [Mass/Vol] 1.26 mg/dL 0.55-1.02 [facility] Work Phone: Comment on above: The validity of the calculated GFR & GFRAA in patients over 70 years has not been determined. Clinical correlation is essential. Serum or plasma urea nitroge n measurement (mass/volume)on 11-18-2021 Urea nitrogen [Mass/Vol] 29 mg/dL 7-18 [facility] Work Phone: Squamous epithelial cells de tection in urine sediment by light microscopyon 11-18-2021 Epithelial cells.squamous LM Ql (Urine sed) 0-5 SEEN /hpf 5-10 [facility] Work Phone: Thin prep Papanicolaou smear with manual screeningon 11-18-2021 Thin prep Papanicolaou smear with manual screening 7 5-15 [facility] Work Phone: Urine blood detectionon - RBC Ql (U) 10 /ul Negative [facility] Work Phone: RBC Ql (U) 0 SEEN /hpf 0-5 [facility] Work Phone: Urine clarityon 11-18-2021 Clarity (U) Clear Clear [facility] Work Phone: Urine color determinationon 11-18-2021 Color (U) Yellow Yellow [facility] Work Phone: Urine glucose detectionon Glucose Ql (U) Normal mg/dl Normal [facility] Work Phone: Urine leukocyte esterase det ection by dipstickon 11-18-2021 Leukocyte esterase Test strip Ql (U) Negative Negative [facility] Work Phone: Urine pHon 11-18-2021 pH (U) 6.0 [pH] 5.0 - 8.0 [facility] Work Phone: Urine sediment bacteria coun t by microscopy (number/high power field)on 11-18-2021 Bacteria LM.HPF (Urine sed) [#/Area] 3 /[HPF] None Seen [facility] Work Phone: Urine specific gravity measu rementon 11-18-2021 Specific gravity (U) [Rel density] 1.010 1.002-1.030 [facility] Work Phone: Urobilinogen Auto test strip Ql (U)on 11-18-2021 Urobilinogen Ql (U) Normal mg/dl Normal [facility] Work Phone: Basophil percentageon 2021 Chloride [Moles/Vol] 106 mmol/L 98-107 [facility] Work Phone: Glucose [Mass/Vol] 120 mg/dL 74-106 [facility] Work Phone: Comment on above: Fasting Glucose resu lt from 100 to 125 mg/dL suggests IMPAIRED HOMEOSTASIS per A.D.A. criteria. Potassium [Moles/Vol] 4.8 mmol/L 3.5-5.1 [facility] Work Phone: Sodium [Moles/Vol] 140 mmol/L 136-145 [facility] Work Phone: Laboratory - Chemistry and C hemistry - challengeon 09-01-2021 CO2 [Moles/Vol] 27.0 mmol/L 21.0-32.0 [facility] Work Phone: Urea nitrogen/Creatinine [Mass ratio] 20.0 mg/mg 10-20 [facility] Work Phone: No Panel Informationon 09-01 Estimated GFR (MDRD) Amer 52 mL/min >60 [facility] Work Phone: Comment on above: GFR Calc Estimated GFR (MDRD) Non-Af Amer 43 mL/min >60 [facility] Work Phone: Comment on above: Non- GFR Calc Serum or plasma calcium leah urement (mass/volume)on 09-01-2021 Calcium [Mass/Vol] 9.0 mg/dL 8.5-10.1 [facility] Work Phone: Serum or plasma creatinine m easurement (mass/volume)on 09-01-2021 Creatinine [Mass/Vol] 1.30 mg/dL 0.55-1.02 [facility] Work Phone: Comment on above: The validity of the calculated GFR & GFRAA in patients over 70 years has not been determined. Clinical correlation is essential. Serum or plasma urea nitroge n measurement (mass/volume)on 09-01-2021 Urea nitrogen [Mass/Vol] 26 mg/dL 7-18 [facility] Work Phone: Thin prep Papanicolaou smear with manual screeningon 09-01-2021 Thin prep Papanicolaou smear with manual screening 7 5-15 [facility] Work Phone: Absolute lymphocyte counton 08-03-2021 Lymphocytes Auto (Unsp spec) [#/Vol] 3.20 10*3/uL 0.83-4.51 [facility] Work Phone: Basophil percentageon 2021 Basophils/100 WBC (Bld) 0.7 % 0-1 [facility] Work Phone: Chloride [Moles/Vol] 110 mmol/L 98-107 [facility] Work Phone: Eosinophils/100 WBC (Bld) 2.9 % 0-5 [facility] Work Phone: [phone] Glucose [Mass/Vol] 113 mg/dL 74-106 [facility] Work Phone: Comment on above: Fasting Glucose resu lt from 100 to 125 mg/dL suggests IMPAIRED HOMEOSTASIS per A.D.A. criteria. Neutrophils (Bld) [#/Vol] 5.8 10*3/uL 2.0-7.7 [facility] Work Phone: Neutrophils/100 WBC (Bld) 57.1 % 47-70 [facility] Work Phone: Potassium [Moles/Vol] 4.0 mmol/L 3.5-5.1 [facility] Work Phone: Sodium [Moles/Vol] 141 mmol/L 136-145 [facility] Work Phone: WBC (Bld) [#/Vol] 10.1 10*3/uL 4.4-11.0 [facility] Work [facility]: Blood erythrocytes count (nu mber/volume)on 08-03-2021 RBC (Bld) [#/Vol] 4.99 10*6/uL 4.2-5.4 [facility] Work Phone: Blood hemoglobin measurement (mass/volume)on 08-03-2021 Hemoglobin (Bld) [Mass/Vol] 14.6 g/dL 12.0-15.0 [facility] Work Phone: Blood lymphocytes/100 leukoc yteson 08-03-2021 Lymphocytes/100 WBC (Bld) 31.6 % 19-41 [facility] Work Phone: Blood monocytes/100 leukocyt eson 08-03-2021 Monocytes/100 WBC (Bld) 7.5 % 0-10 [facility] Work Phone: Blood platelet mean volumeon 08-03-2021 Platelet mean volume (Bld) [Entitic vol] 9.8 fL 6.2-12.0 [facility] Work Phone: Determination of erythrocyte mean corpuscular volume (MCV)on 08-03-2021 MCV (RBC) [Entitic vol] 88.6 fL 81-99 [facility] Work Phone: Hematocrit Auto (Bld) [Volum e fraction]on 08-03-2021 Hematocrit (Bld) [Volume fraction] 44.2 % 37-47 [facility] Work Phone: Laboratory - Chemistry and C hemistry - challengeon 08-03-2021 CO2 [Moles/Vol] 26.0 mmol/L 21.0-32.0 [facility] Work Phone: Urea nitrogen/Creatinine [Mass ratio] 25.0 mg/mg 10-20 [facility] Work Phone: Laboratory - Hematology and Cell countson 08-03-2021 Erythrocyte distribution width (RBC) [Entitic vol] 44.2 fL 35.1-43.9 [facility] Work Phone: Erythrocyte distribution width (RBC) [Ratio] 13.7 % 11.6-14.6 [facility] Work Phone: Immature granulocytes/100 WBC (Bld) 0.200 % 0.0-0.9 [facility] Work Phone: Comment on above: IG% - Immature Granu locytes (promyelocytes, myelocytes and metamyelocytes) > 1% indicates that a LEFT SHIFT is Present. MCH (RBC) [Entitic mass] 29.3 pg 27.0-32.0 [facility] Work Phone: Nucleated RBC/100 WBC (Bld) [Ratio] 0 % 0-5 [facility] Work Phone: MCHC Auto (RBC) [Mass/Vol]on 08-03-2021 MCHC (RBC) [Mass/Vol] 33.0 g/dL 32-36 [facility] Work Phone: No Panel Informationon 08-03 Estimated Creatinine Clearance Calc 51.05 ml/min [facility] Work Phone: Estimated GFR (MDRD) Amer 68 mL/min >60 [facility] Work Phone: Comment on above: GFR Calc Estimated GFR (MDRD) Non-Af Amer 56 mL/min >60 [facility] Work Phone: Comment on above: Non- GFR Calc Platelets bldon 08-03-2021 Platelets (Bld) [#/Vol] 202 10*3/uL 150-450 [facility] Work Phone: Serum or plasma calcium leah urement (mass/volume)on 08-03-2021 Calcium [Mass/Vol] 8.5 mg/dL 8.5-10.1 [facility] Work Phone: Serum or plasma creatinine m easurement (mass/volume)on 08-03-2021 Creatinine [Mass/Vol] 1.04 mg/dL 0.55-1.02 [facility] Work Phone: Comment on above: The validity of the calculated GFR & GFRAA in patients over 70 years has not been determined. Clinical correlation is essential. Serum or plasma urea nitroge n measurement (mass/volume)on 08-03-2021 Urea nitrogen [Mass/Vol] 26 mg/dL 7-18 [facility] Work Phone: Thin prep Papanicolaou smear with manual screeningon 08-03-2021 Thin prep Papanicolaou smear with manual screening 5 5-15 [facility] Work Phone: Basophil percentageon 2021 Cholesterol [Mass/Vol] 143 mg/dL <200 [facility] Work Phone: Comment on above: <200 mg/dL Desirable 200-240 mg/dL Borderline >240 mg/dL High Risk Triglyceride [Mass/Vol] 147 mg/dL <199 [facility] Work Phone: Comment on above: The drugs N-Acetylcy steine and Metamizole may falsely depress this assay.Serum Triglycerides Reference Interval Normal <150 mg/dL Borderline high 150 - 199 mg/dL High 200 - 499 mg/dL Very High > or = 500 mg/dL No Panel Informationon 08-02 Thyroid Stimulating Hormone (TSH) 1.62 uIU/mL 0.358-3.74 [facility] Work Phone: Serum or plasma cholesterol in HDL measurement (mass/volume)on 08-02-2021 Cholesterol in HDL [Mass/Vol] 27 mg/dL >40 [facility] Work Phone: Comment on above: The drugs N-Acetylcy steine and Metamizole may falsely depress this assay. Reference Range HDL <40 mg/dL Low HDL Cholesterol HDL >or= 60 mg/dL High HDL Cholesterol Serum or plasma cholesterol in VLDL measurement (mass/volume)on 08-02-2021 Cholesterol in VLDL [Mass/Vol] 29 mg/dL 5-40 [facility] Work Phone: Serum or plasma low density lipoprotein (LDL) cholesterol measurement (mass/volume)on 08-02-2021 Cholesterol in LDL [Mass/Vol] 87 mg/dL 0-130 [facility] Work Phone: Basophil percentageon 2021 Bilirubin [Mass/Vol] 0.70 mg/dL 0.20-1.00 [facility] Work Phone: Comment on above: For patients on eltr ombopag therapy, use of Dimension Apex TBIL is not recommended. Protein [Mass/Vol] 7.9 g/dL 6.4-8.2 [facility] Work Phone: Laboratory - Chemistry and C hemistry - challengeon 08-01-2021 ALP [Catalytic activity/Vol] 76 U/L 45-117 [facility] Work Phone: ALT [Catalytic activity/Vol] 27 U/L 13-56 [facility] Work Phone: Globulin (S) [Mass/Vol] 4.1 g/dL 2.2-4.2 [facility] Work Phone: Magnesium [Mass/Vol] 1.8 mg/dL 1.6-2.6 [facility] Work Phone: Natriuretic peptide B (Bld) [Mass/Vol] 613.7 pg/mL 0-100 [facility] Work Phone: No Panel Informationon 08-01 Troponin I High Sensitivity 94 pg/mL 3.0-54.0 [facility] Work Phone: Comment on above: Please Note: [place] t Units and Gender Specific Reference Ranges. For more information see Policy Stat Procedure Apex High Sensitivity Troponin (TNIH) and attachments. Serum or plasma albumin leah urement (mass/volume)on 08-01-2021 Albumin [Mass/Vol] 3.8 g/dL 3.2-5.0 [facility] Work Phone: Serum or plasma albumin/glob ulin mass ratioon 08-01-2021 Albumin/Globulin [Mass ratio] 0.9 {ratio} 0.9-2.4 [facility] Work Phone: Thin prep Papanicolaou smear with manual screeningon 08-01-2021 Thin prep Papanicolaou smear with manual screening 17 U/L 15-37 [facility] Work Phone: HOSPon 06-04-2017 [facility] JEAN-PAUL MCPHERSON ([id number]) 1955 [facility] Time Provider Department06/04/17 ALBERTA GOMEZ During your visit today, we recorded the following information about you:Alberta Gomez MD 06/07/2017 11:50 AM SignedMessage from [facility]:Jaren Medina MA [facility] Jun 07, 2017 10:05 AM----- Message ----- From: Beulah Mcpherson Sent: 06/04/2017 10:36 AM To: [facility] Jhon Renew RxSubject: Medication Renewal RequestOriginal authorizing provider: Elgiio Sanchez would like a refill of the following medications:amitript yline (ELAVIL) 75 mg tablet [Alberta Gomez MD]ibuprofen (MOTRIN) 800 mg tablet [Alberta Gomez MD]Preferred pharmacy: [place] [address] [address] [phone] [id number]:Clement Gomez MD 06/07/2017 11:52 AM SignedRx reorderedJaren Medina MA 06/11/2017 1:33 PM SignedName: patient requesting medications refill(s).Patient's : 4Allergies: Zosyn [Piperacillin-Tazoba ctam] (home) [phone] (cell)Last appointment : Visit date not foundThe patients preferred pharmacy has been captured for this encounter.Patient phones requesting refills as follows:Pending Prescriptions Disp Refills AMITRIPTYLINE 75 MG TABLET 30 tablet 2 Sig: Take 1 tablet by mouth daily at bedtime. FADIA: No IBUPROFEN 800 MG TABLET 60 tablet 2 Sig: Take 1 tablet by mouth every 8 hours as needed (for pain.). FADAI: NoSigned Prescriptions Disp Refills amitriptyline (ELAVIL) 75 [...] INVALID FOR*07/10/2016 Priority: B More... DVT prophylaxis [QMM0916] INVALID FOR*07/10/2016 More... Nephrolithiasis [N20.0] INVALID FOR*07/10/2016 [...] Status:Closed by ALBERTA GOMEZ MD on 06/07/17 [facility] Culture, urine Bacteria identified Cx Nom (U) Escherichia coli#2 [facility] Work Phone: Bacteria identified Cx Nom (U) Escherichia coli [facility] Work Phone: SARS-CoV-2 (COVID-19) Ag IA. rapid Ql (Resp) SARS-CoV-2 Antigen (Rapid) SARS-CoV-2 (COVID 19) [facility] Work Phone: Vital Signs Date Time Vital Sign Value Performing Clinician Nick rutledge 09-08-2023 14:06-0400 Body temperature 97.4 [degF] Dr. Yesi Clinton Work Phone: [facility] 09-08-2023 14:06-0400 Diastolic blood pressure 44 mm[Hg] Dr. Yesi Clinton Work Phone: [facility] 09-08-2023 14:06-0400 Heart rate 77 /min Dr. Yesi Clinton Work Phone: [facility] 09-08-2023 14:06-0400 Respiratory rate 18 /min Dr. Yesi Clinton Work Phone: [facility] 09-08-2023 14:06-0400 SaO2% (BldA) [Mass fraction] 97 % Dr. Yesi Clinton Work Phone: [facility] 09-08-2023 14:06-0400 Systolic blood pressure 114 mm[Hg] Dr. Yesi Clinton Work Phone: [facility] 09-08-2023 10:10-0400 Body height 170.[address] Yesi Clinton Work Phone: [facility] 09-08-2023 10:10-0400 Body weight 110.[address] Yesi Clinton Work Phone: [facility] 09-08-2023 05:15-0400 Body mass index (BMI) [Ratio] 38.2 kg/m2 Dr. Yesi Clinton Work Phone: [facility] 09-07-2023 11:34-0400 Inhaled oxygen flow rate 2 L/min Dr. Yesi Clinton Work Phone: [facility] 09-01-2023 09:22-0400 Body mass index (BMI) [Ratio] 36.8 kg/m2 Dr. Yesi Clinton Work Phone: [facility] 09-01-2023 09:22-0400 Body weight 106.[address] Yesi Clinton Work Phone: [facility] 09-01-2023 09:22-0400 Diastolic blood pressure 75 mm[Hg] Dr. Yesi Clinton Work Phone: [facility] 09-01-2023 09:22-0400 Heart rate 58 /min Dr. Yesi Clinton Work Phone: [facility] 09-01-2023 09:22-0400 Respiratory rate 18 /min Dr. Yesi Clinton Work Phone: [facility] 09-01-2023 09:22-0400 Systolic blood pressure 121 mm[Hg] Dr. Yesi Clinton Work Phone: [facility] 08-13-2023 15:07-0400 Body height 170.2 cm Thor Bain [employer] Work Phone: [facility] 08-13-2023 15:07-0400 Body mass index (BMI) [Ratio] 37.73 kg/m2 Thorradha Sandovalefe [employer] Work Phone: [facility] 08-13-2023 15:07-0400 Body weight 109.3 kg Thorradha Sandovalefe [employer] Work Phone: [facility] 08-13-2023 15:07-0400 Diastolic blood pressure 70 mm[Hg] Thor Kassy [employer] Work Phone: [facility] 08-13-2023 15:07-0400 Systolic blood pressure 160 mm[Hg] Thorradha Vaughne [employer] Work Phone: [facility] 07-21-2023 15:03-0500 Body temperature 98.4 [degF] Dr. Yesi Clinton Work Phone: [facility] 07-21-2023 15:03-0500 Body weight 109.[address] Yesi Clinton Work Phone: [facility] 07-21-2023 15:03-0500 Diastolic blood pressure 60 mm[Hg] Dr. Yesi Clinton Work Phone: [facility] 07-21-2023 15:03-0500 Heart rate 64 /min Dr. Yesi Clinton Work Phone: [facility] 07-21-2023 15:03-0500 Respiratory rate 14 /min Dr. Yesi Clinton Work Phone: [facility] 07-21-2023 15:03-0500 SaO2% (BldA) [Mass fraction] 96 % Dr. Yesi Clinton Work Phone: [facility] 07-21-2023 15:03-0500 Systolic blood pressure 124 mm[Hg] Dr. Yesi Clinton Work Phone: [facility] 05-17-2023 10:39-0500 Body height 170.[address] Yesi Clinton Work Phone: [facility] 05-17-2023 10:39-0500 Body mass index (BMI) [Ratio] 37.7 kg/m2 Dr. Yesi Clinton Work Phone: [facility] 05-17-2023 10:39-0500 Body temperature 98.3 [degF] Dr. Yesi Clinton Work Phone: [facility] 05-17-2023 10:39-0500 Body weight 109.[address] Yesi Clinton Work Phone: [facility] 05-17-2023 10:39-0500 Diastolic blood pressure 90 mm[Hg] Dr. Yesi Clinton Work Phone: [facility] 05-17-2023 10:39-0500 Heart rate 70 /min Dr. Yesi Clinton Work Phone: [facility] 05-17-2023 10:39-0500 Respiratory rate 16 /min Dr. Yesi Clinton Work Phone: [facility] 05-17-2023 10:39-0500 SaO2% (BldA) [Mass fraction] 98 % Dr. Yesi Clinton Work Phone: [facility] 05-17-2023 10:39-0500 Systolic blood pressure 138 mm[Hg] Dr. Yesi Clinton Work Phone: [facility] 05-04-2023 11:15-0500 Body height 170.[address] Yesi Clinton Work Phone: [facility] 05-04-2023 11:15-0500 Body mass index (BMI) [Ratio] 37.7 kg/m2 Dr. Yesi Clinton Work Phone: [facility] 05-04-2023 11:15-0500 Body weight 109.[address] Yesi Clinton Work Phone: [facility] 04-07-2023 15:06-0500 Body temperature 98.4 [degF] Dr. Yesi Clinton Work Phone: [facility] 04-07-2023 15:06-0500 Body weight 109.[address] Yesi Clinton Work Phone: [facility] 04-07-2023 15:06-0500 Diastolic blood pressure 64 mm[Hg] Dr. Yesi Clinton Work Phone: [facility] 04-07-2023 15:06-0500 Heart rate 66 /min Dr. Yesi Clinton Work Phone: [facility] 04-07-2023 15:06-0500 Respiratory rate 16 /min Dr. Yesi Clinton Work Phone: [facility] 04-07-2023 15:06-0500 SaO2% (BldA) [Mass fraction] 97 % Dr. Yesi Clinton Work Phone: [facility] 04-07-2023 15:06-0500 Systolic blood pressure 121 mm[Hg] Dr. Yesi Clinton Work Phone: [facility] 04-05-2023 10:06-0500 Body height 170.[address] Yesi Clinton Work Phone: [facility] 04-05-2023 10:06-0500 Body mass index (BMI) [Ratio] 37.7 kg/m2 Dr. Yesi Clinton Work Phone: [facility] 04-05-2023 10:06-0500 Body temperature 97 [degF] Dr. Yesi Clinton Work Phone: [facility] 04-05-2023 10:06-0500 Body weight 109.[address] Yesi Clinton Work Phone: [facility] 04-05-2023 10:06-0500 Diastolic blood pressure 70 mm[Hg] Dr. Yesi Clinton Work Phone: [facility] 04-05-2023 10:06-0500 Heart rate 56 /min Dr. Yesi Clinton Work Phone: [facility] 04-05-2023 10:06-0500 Respiratory rate 18 /min Dr. Yesi Clinton Work Phone: [facility] 04-05-2023 10:06-0500 Systolic blood pressure 124 mm[Hg] Dr. Yesi Clinton Work Phone: [facility] 03-30-2023 19:00-0400 Diastolic blood pressure 58 mm[Hg] Mansi Comer MD Work Phone: [facility] 03-30-2023 19:00-0400 Heart rate 86 /min Mansi Comer MD Work Phone: [facility] 03-30-2023 19:00-0400 Respiratory rate 16 /min Mansi Comer MD Work Phone: [facility] 03-30-2023 19:00-0400 SaO2% (BldA) [Mass fraction] 99 % Mansi Comer MD Work Phone: [facility] 03-30-2023 19:00-0400 Systolic blood pressure 125 mm[Hg] Mansi Comer MD Work Phone: [facility] 03-30-2023 15:22-0400 Body temperature 97.5 [degF] Mansi Comer MD Work Phone: [facility] 03-30-2023 08:30-0400 Body height 170.2 cm Mansi Comer MD Work Phone: [facility] 03-30-2023 08:30-0400 Body mass index (BMI) [Ratio] 36.96 kg/m2 Mansi Comer MD Work Phone: [facility] 03-30-2023 08:30-0400 Body weight 107.05 kg Mansi Comer MD Work Phone: [facility] 03-26-2023 08:50-0400 Body height 170.[address] Yesi Clinton Work Phone: [facility] 03-26-2023 08:50-0400 Body mass index (BMI) [Ratio] 37.9 kg/m2 Dr. Yesi Clinton Work Phone: [facility] 03-26-2023 08:50-0400 Body temperature 98 [degF] Dr. Yesi Clinton Work Phone: [facility] 03-26-2023 08:50-0400 Body weight 109.[address] Yesi Clinton Work Phone: [facility] 03-26-2023 08:50-0400 Diastolic blood pressure 76 mm[Hg] Dr. Yesi Clinton Work Phone: [facility] 03-26-2023 08:50-0400 Heart rate 85 /min Dr. Yesi Clinton Work Phone: [facility] 03-26-2023 08:50-0400 Respiratory rate 16 /min Dr. Yesi Clinton Work Phone: [facility] 03-26-2023 08:50-0400 SaO2% (BldA) [Mass fraction] 97 % Dr. Yesi Clinton Work Phone: [facility] 03-26-2023 08:50-0400 Systolic blood pressure 118 mm[Hg] Dr. Yesi Clinton Work Phone: [facility] 03-24-2023 15:01-0400 Body mass index (BMI) [Ratio] 36.9 kg/m2 Dr. Yesi Clinton Work Phone: [facility] 03-24-2023 15:01-0400 Body weight 107.[address] Yesi Clinton Work Phone: [facility] 03-24-2023 15:01-0400 Diastolic blood pressure 74 mm[Hg] Dr. Yesi Clinton Work Phone: [facility] 03-24-2023 15:01-0400 Heart rate 86 /min Dr. Yesi Clinton Work Phone: [facility] 03-24-2023 15:01-0400 Respiratory rate 16 /min Dr. Yesi Clinton Work Phone: [facility] 03-24-2023 15:01-0400 SaO2% (BldA) [Mass fraction] 98 % Dr. Yesi Clinton Work Phone: [facility] 03-24-2023 15:01-0400 Systolic blood pressure 119 mm[Hg] Dr. Yesi Clinton Work Phone: [facility] 03-01-2023 09:28-0400 Body height 171.[address] Yesi Clinton Work Phone: [facility] 03-01-2023 09:28-0400 Body mass index (BMI) [Ratio] 36.8 kg/m2 Dr. Yesi Clinton Work Phone: [facility] 03-01-2023 09:28-0400 Body weight 108.[address] Yesi Clinton Work Phone: [facility] 03-01-2023 09:28-0400 Diastolic blood pressure 73 mm[Hg] Dr. Yesi Clinton Work Phone: [facility] 03-01-2023 09:28-0400 Heart rate 77 /min Dr. Yesi Clinton Work Phone: [facility] 03-01-2023 09:28-0400 Respiratory rate 18 /min Dr. Yesi Clinton Work Phone: [facility] 03-01-2023 09:28-0400 Systolic blood pressure 119 mm[Hg] Dr. Yesi Clinton Work Phone: [facility] 02-25-2023 19:20-0400 Body height 170.[address] Yesi Clinton Work Phone: [facility] 02-25-2023 18:01-0400 Heart rate 89 /min Dr. Yesi Clinton Work Phone: [facility] 02-25-2023 18:01-0400 Respiratory rate 17 /min Dr. Yesi Clinton Work Phone: [facility] 02-25-2023 18:01-0400 SaO2% (BldA) [Mass fraction] 97 % Dr. Yesi Clinton Work Phone: [facility] 02-25-2023 15:51-0400 Body temperature 97.3 [degF] Dr. Yesi Clinton Work Phone: [facility] 02-25-2023 15:51-0400 Diastolic blood pressure 77 mm[Hg] Dr. Yesi Clinton Work Phone: [facility] 02-25-2023 15:51-0400 Systolic blood pressure 136 mm[Hg] Dr. Yesi Clinton Work Phone: [facility] 11-30-2022 09:25-0400 Body mass index (BMI) [Ratio] 41 kg/m2 Dr. Yesi Clinton Work Phone: [facility] 11-30-2022 09:25-0400 Body weight 108.[address] Yesi Clinton Work Phone: [facility] 11-30-2022 09:25-0400 Diastolic blood pressure 79 mm[Hg] Dr. Yesi Clinton Work Phone: [facility] 11-30-2022 09:25-0400 Heart rate 84 /min Dr. Yesi Clinton Work Phone: [facility] 11-30-2022 09:25-0400 Respiratory rate 18 /min Dr. Yesi Clinton Work Phone: [facility] 11-30-2022 09:25-0400 Systolic blood pressure 139 mm[Hg] Dr. Yesi Clinton Work Phone: [facility] 11-19-2022 14:11-0400 Body mass index (BMI) [Ratio] 40.1 kg/m2 Dr. Yesi Clinton Work Phone: [facility] 11-19-2022 14:11-0400 Body temperature 98.4 [degF] Dr. Yesi Clinton Work Phone: [facility] 11-19-2022 14:11-0400 Body weight 106.[address] Yesi Clinton Work Phone: [facility] 11-19-2022 14:11-0400 Diastolic blood pressure 74 mm[Hg] Dr. Yesi Clinton Work Phone: [facility] [facility] 11-19-2022 14:11-0400 Heart rate 71 /min Dr. Yesi Clinton Work Phone: [facility] 11-19-2022 14:11-0400 Respiratory rate 12 /min Dr. Yesi Clinton Work Phone: [facility] 11-19-2022 14:11-0400 SaO2% (BldA) [Mass fraction] 97 % Dr. Yesi Clinton Work Phone: [facility] 11-19-2022 14:11-0400 Systolic blood pressure 132 mm[Hg] Dr. Yesi Clinton Work Phone: [facility] 11-08-2022 17:36-0400 Diastolic blood pressure 69 mm[Hg] Dr. Yesi Clinton Work Phone: [facility] 11-08-2022 17:36-0400 Heart rate 79 /min Dr. Yesi Clinton Work Phone: [facility] 11-08-2022 17:36-0400 Respiratory rate 18 /min Dr. Yesi Clinton Work Phone: [facility] 11-08-2022 17:36-0400 SaO2% (BldA) [Mass fraction] 100 % Dr. Yesi Clinton Work Phone: [facility] 11-08-2022 17:36-0400 Systolic blood pressure 113 mm[Hg] Dr. Yesi Clinton Work Phone: [facility] 11-08-2022 16:15-0400 Body mass index (BMI) [Ratio] 34.5 kg/m2 Dr. Yesi Clinton Work Phone: [facility] 11-08-2022 16:15-0400 Body weight 99.[address] Yesi Clinton Work Phone: [facility] 11-08-2022 16:01-0400 Body temperature 97.9 [degF] Dr. Yesi Clinton Work Phone: [facility] 10-27-2022 10:33-0400 Body height 170.[address] Yesi Clinton Work Phone: [facility] 10-27-2022 10:33-0400 Body weight 102.[address] Yesi Clinton Work Phone: [facility] 10-23-2022 10:01-0400 Body mass index (BMI) [Ratio] 35.2 kg/m2 Dr. Yesi Clinton Work Phone: [facility] 09-17-2022 10:58-0400 Body height 170.[address] Yesi Clinton Work Phone: [facility] 09-17-2022 10:58-0400 Diastolic blood pressure 70 mm[Hg] Dr. Yesi Clinton Work Phone: [facility] 09-17-2022 10:58-0400 Systolic blood pressure 140 mm[Hg] Dr. Yesi Clinton Work Phone: [facility] 09-17-2022 10:58-0400 Body mass index (BMI) [Ratio] 35.2 kg/m2 Dr. Yesi Clinton Work Phone: [facility] 09-17-2022 10:58-0400 Body weight 102.[address] Yesi Clinton Work Phone: [facility] 09-17-2022 10:58-0400 Heart rate 68 /min Dr. Yesi Clinton Work Phone: [facility] 09-17-2022 10:58-0400 Respiratory rate 18 /min Dr. Yesi Clinton Work Phone: [facility] 09-17-2022 10:58-0400 SaO2% (BldA) [Mass fraction] 98 % Dr. Yesi Clinton Work Phone: [facility] 09-16-2022 20:17-0400 Diastolic blood pressure 65 mm[Hg] Dr. Yesi Clinton Work Phone: [facility] 09-16-2022 20:17-0400 Heart rate 63 /min Dr. Yesi Clinton Work Phone: [facility] 09-16-2022 20:17-0400 Respiratory rate 18 /min Dr. Yesi Clinton Work Phone: [facility] 09-16-2022 20:17-0400 SaO2% (BldA) [Mass fraction] 100 % Dr. Yesi Clinton Work Phone: [facility] 09-16-2022 20:17-0400 Systolic blood pressure 136 mm[Hg] Dr. Yesi Clinton Work Phone: [facility] 09-16-2022 16:09-0400 Body mass index (BMI) [Ratio] 35 kg/m2 Dr. Yesi Clinton Work Phone: [facility] 09-16-2022 16:09-0400 Body temperature 98.3 [degF] Dr. Yesi Clitnon Work Phone: [facility] 09-16-2022 16:09-0400 Body weight 101.[address] Yesi Clinton Work Phone: [facility] 06-09-2022 06:08-0500 Body mass index (BMI) [Ratio] 35 kg/m2 Dr. Yesi Clinton Work Phone: [facility] 06-09-2022 06:08-0500 Body temperature 98.2 [degF] Dr. Yesi Clinton Work Phone: [facility] 06-09-2022 06:08-0500 Body weight 101.[address] Yesi Clinton Work Phone: [facility] 06-09-2022 06:08-0500 Diastolic blood pressure 64 mm[Hg] Dr. Yesi Clinton Work Phone: [facility] 06-09-2022 06:08-0500 Heart rate 64 /min Dr. Yesi Clinton Work Phone: [facility] 06-09-2022 06:08-0500 Respiratory rate 18 /min Dr. Yesi Clinton Work Phone: [facility] 06-09-2022 06:08-0500 SaO2% (BldA) [Mass fraction] 96 % Dr. Yesi Clinton Work Phone: [facility] 06-09-2022 06:08-0500 Systolic blood pressure 140 mm[Hg] Dr. Yesi Clinton Work Phone: [facility] 04-04-2022 12:44-0400 Diastolic blood pressure 53 mm[Hg] Dr. Yesi Clinton Work Phone: [facility] Work Phone: 04-04-2022 12:44-0400 Heart rate 58 /min Dr. Yesi Clinton Work Phone: [facility] Work Phone: 04-04-2022 12:44-0400 Respiratory rate 18 /min Dr. Yesi Clinton Work Phone: [facility] Work Phone: 04-04-2022 12:44-0400 SaO2% (BldA) [Mass fraction] 98 % Dr. Yesi Clinton Work Phone: [facility] Work Phone: 04-04-2022 12:44-0400 Systolic blood pressure 130 mm[Hg] Dr. Yesi Clinton Work Phone: [facility] Work Phone: 04-04-2022 11:06-0400 Body height 170.[address] Yesi Clinton Work Phone: [facility] Work Phone: 04-04-2022 11:06-0400 Body mass index (BMI) [Ratio] 35.2 kg/m2 Dr. Yesi Clinton Work Phone: [facility] Work Phone: 04-04-2022 11:06-0400 Body temperature 97.8 [degF] Dr. Yesi Clinton Work Phone: [facility] Work Phone: 04-04-2022 11:06-0400 Body weight [address] Yesi Clinton Work Phone: [facility] Work Phone: 03-18-2022 08:57-0400 Body height 170.[address] Yesi Clinton Work Phone: [facility] Work Phone: 03-18-2022 08:57-0400 Body mass index (BMI) [Ratio] 35.5 kg/m2 Dr. Yesi Clinton Work Phone: [facility] Work Phone: 03-18-2022 08:57-0400 Body weight 102.[address] Yesi Clinton Work Phone: [facility] Work Phone: 03-18-2022 08:57-0400 Diastolic blood pressure 70 mm[Hg] Dr. Yesi Clinton Work Phone: [facility] Work Phone: 03-18-2022 08:57-0400 Heart rate 61 /min Dr. Yesi Clinton Work Phone: [facility] Work Phone: 03-18-2022 08:57-0400 Respiratory rate 16 /min Dr. Yesi Clinton Work Phone: [facility] Work Phone: 03-18-2022 08:57-0400 Systolic blood pressure 126 mm[Hg] Dr. Yesi Clinton Work Phone: [facility] Work Phone: 03-05-2022 14:02-0400 Body mass index (BMI) [Ratio] 35.6 kg/m2 Dr. Yesi Clinton Work Phone: [facility] Work Phone: 03-05-2022 14:02-0400 Body temperature 97.3 [degF] Dr. Yesi Clinton Work Phone: [facility] Work Phone: 03-05-2022 14:02-0400 Body weight 103.[address] Yesi Clinton Work Phone: [facility] Work Phone: 03-05-2022 14:02-0400 Diastolic blood pressure 80 mm[Hg] Dr. Yesi Clinton Work Phone: [facility] Work Phone: 03-05-2022 14:02-0400 Heart rate 61 /min Dr. Yesi Clinton Work Phone: [facility] Work Phone: 03-05-2022 14:02-0400 Respiratory rate 18 /min Dr. Yesi Clinton Work Phone: [facility] Work Phone: 03-05-2022 14:02-0400 SaO2% (BldA) [Mass fraction] 98 % Dr. Yesi Clinton Work Phone: [facility] Work Phone: 03-05-2022 14:02-0400 Systolic blood pressure 145 mm[Hg] Dr. Yesi Clinton Work Phone: [facility] Work Phone: 02-11-2022 13:17-0400 Diastolic blood pressure 57 mm[Hg] Dr. Ysei Clinton Work Phone: [facility] Work Phone: 02-11-2022 13:17-0400 Heart rate 72 /min Dr. Yesi Clinton Work Phone: [facility] Work Phone: 02-11-2022 13:17-0400 Respiratory rate 15 /min Dr. Yesi Clinton Work Phone: [facility] Work Phone: 02-11-2022 13:17-0400 SaO2% (BldA) [Mass fraction] 97 % Dr. Yesi Clinton Work Phone: [facility] Work Phone: 02-11-2022 13:17-0400 Systolic blood pressure 107 mm[Hg] Dr. Yesi Clinton Work Phone: [facility] Work Phone: 02-11-2022 10:49-0400 Inhaled oxygen flow rate 12 L/min Dr. Yesi Clinton Work Phone: [facility] Work Phone: 02-11-2022 10:00-0400 Body height 170.[address] Yesi Clinton Work Phone: [facility] Work Phone: 02-11-2022 10:00-0400 Body mass index (BMI) [Ratio] 35.5 kg/m2 Dr. Yesi Clinton Work Phone: [facility] Work Phone: 02-11-2022 10:00-0400 Body temperature 98.2 [degF] Dr. Yesi Clinton Work Phone: [facility] Work Phone: 02-11-2022 10:00-0400 Body weight 102.[address] Yesi Clinton Work Phone: [facility] Work Phone: 02-03-2022 08:54-0400 Body mass index (BMI) [Ratio] 35.6 kg/m2 Dr. Yesi Clinton Work Phone: [facility] Work Phone: 02-03-2022 08:54-0400 Body weight 103.[address] Yesi Clinton Work Phone: [facility] Work Phone: 02-03-2022 08:54-0400 Diastolic blood pressure 63 mm[Hg] Dr. Yesi Clinton Work Phone: [facility] Work Phone: 02-03-2022 08:54-0400 Heart rate 72 /min Dr. Yesi Clinton Work Phone: [facility] Work Phone: 02-03-2022 08:54-0400 Respiratory rate 16 /min Dr. Yesi Clinton Work Phone: [facility] Work Phone: 02-03-2022 08:54-0400 Systolic blood pressure 99 mm[Hg] Dr. Yesi Clinton Work Phone: [facility] Work Phone: 01-08-2022 10:22-0400 Body weight 105.[address] Yesi Clinton Work Phone: [facility] Work Phone: 01-07-2022 09:43-0400 Body mass index (BMI) [Ratio] 36.3 kg/m2 Dr. Yesi Clinton Work Phone: [facility] Work Phone: 12-30-2021 13:57-0400 Body mass index (BMI) [Ratio] 36.3 kg/m2 Dr. Yesi Clinton Work Phone: [facility] Work Phone: 12-30-2021 13:57-0400 Body weight 105.[address] Yesi Clinton Work Phone: [facility] Work Phone: 12-30-2021 13:57-0400 Diastolic blood pressure 65 mm[Hg] Dr. Yesi Clinton Work Phone: [facility] Work Phone: 12-30-2021 13:57-0400 Heart rate 65 /min Dr. Yesi Clinton Work Phone: [facility] Work Phone: 12-30-2021 13:57-0400 Respiratory rate 16 /min Dr. Yesi Clinton Work Phone: [facility] Work Phone: 12-30-2021 13:57-0400 Systolic blood pressure 119 mm[Hg] Dr. Yesi Clinton Work Phone: [facility] Work Phone: 12-20-2021 14:00-0400 Diastolic blood pressure 74 mm[Hg] Dr. Bean Brower Work Phone: [facility] Work Phone: 12-20-2021 14:00-0400 Heart rate 73 /min Dr. Bean Brower Work Phone: [facility] Work Phone: 12-20-2021 14:00-0400 Systolic blood pressure 110 mm[Hg] Dr. Bean Brower Work Phone: [facility] Work Phone: 12-20-2021 12:23-0400 Respiratory rate 20 /min Dr. Bean Brower Work Phone: [facility] Work Phone: 12-20-2021 10:23-0400 Body height 170.[address] Bean Brower Work Phone: [facility] Work Phone: 12-20-2021 10:23-0400 Body mass index (BMI) [Ratio] 36.3 kg/m2 Dr. Bean Brower Work Phone: [facility] Work Phone: 12-20-2021 10:23-0400 Body temperature 97.7 [degF] Dr. Bean Brower Work Phone: [facility] Work Phone: 12-20-2021 10:23-0400 Body weight 105.[address] Bean Brower Work Phone: [facility] Work Phone: 12-20-2021 10:23-0400 SaO2% (BldA) [Mass fraction] 97 % Dr. Bean Brower Work Phone: [facility] Work Phone: 12-04-2021 14:44-0400 Body height 172.[address] Bean Brower Work Phone: [facility] Work Phone: 12-04-2021 14:44-0400 Body mass index (BMI) [Ratio] 35.9 kg/m2 Dr. Bean Brower Work Phone: [facility] Work Phone: 12-04-2021 14:44-0400 Body temperature 97.5 [degF] Dr. Bean Brower Work Phone: [facility] Work Phone: 12-04-2021 14:44-0400 Body weight 107.[address] Bean Brower Work Phone: [facility] Work Phone: 12-04-2021 14:44-0400 Diastolic blood pressure 60 mm[Hg] Dr. Bean Brower Work Phone: [facility] Work Phone: 12-04-2021 14:44-0400 Heart rate 67 /min Dr. Bean Brower Work Phone: [facility] Work Phone: 12-04-2021 14:44-0400 Respiratory rate 18 /min Dr. Bean Brower Work Phone: [facility] Work Phone: 12-04-2021 14:44-0400 SaO2% (BldA) [Mass fraction] 97 % Dr. Bean Brower Work Phone: [facility] Work Phone: 12-04-2021 14:44-0400 Systolic blood pressure 98 mm[Hg] Dr. Bean Brower Work Phone: [facility] Work Phone: 11-20-2021 11:31-0400 Diastolic blood pressure 56 mm[Hg] Dr. Bean Brower Work Phone: [facility] Work Phone: 11-20-2021 11:31-0400 Heart rate 102 /min Dr. Bean Brower Work Phone: [facility] Work Phone: 11-20-2021 11:31-0400 Systolic blood pressure 98 mm[Hg] Dr. Bean Brower Work Phone: [facility] Work Phone: 11-20-2021 10:34-0400 Body height 172.[address] Bean Brower Work Phone: [facility] Work Phone: 11-20-2021 10:34-0400 Body mass index (BMI) [Ratio] 35.6 kg/m2 Dr. Bean Brower Work Phone: [facility] Work Phone: 11-20-2021 10:34-0400 Body temperature 97.3 [degF] Dr. Bean Brower Work Phone: [facility] Work Phone: 11-20-2021 10:34-0400 Body weight 106.[address] Bean Brower Work Phone: [facility] Work Phone: 11-20-2021 10:34-0400 Respiratory rate 18 /min Dr. Bean Brower Work Phone: [facility] Work Phone: 11-20-2021 10:34-0400 SaO2% (BldA) [Mass fraction] 97 % Dr. Bean Brower Work Phone: [facility] Work Phone: 11-19-2021 00:12-0400 Diastolic blood pressure 70 mm[Hg] Dr. Bean Brower Work Phone: [facility] Work Phone: 11-19-2021 00:12-0400 Heart rate 81 /min Dr. Bean Brower Work Phone: [facility] Work Phone: 11-19-2021 00:12-0400 Respiratory rate 16 /min Dr. Bean Brower Work Phone: [facility] Work Phone: 11-19-2021 00:12-0400 Systolic blood pressure 111 mm[Hg] Dr. Bean Brower Work Phone: [facility] Work Phone: 11-18-2021 22:55-0400 SaO2% (BldA) [Mass fraction] 97 % Dr. Bean Brower Work Phone: [facility] Work Phone: 11-18-2021 21:04-0400 Body height 172.[address] Bean Brower Work Phone: [facility] Work Phone: 11-18-2021 21:04-0400 Body mass index (BMI) [Ratio] 35.9 kg/m2 Dr. Bean Brower Work Phone: [facility] Work Phone: 11-18-2021 21:04-0400 Body temperature 97.9 [degF] Dr. Bean Brower Work Phone: [facility] Work Phone: 11-18-2021 21:04-0400 Body weight 107.[address] Bean Brower Work Phone: [facility] Work Phone: 09-01-2021 11:09-0400 Body mass index (BMI) [Ratio] 38.9 kg/m2 Dr. Bean Brower Work Phone: [facility] Work Phone: 09-01-2021 11:09-0400 Body temperature 96.2 [degF] Dr. Bean Brower Work Phone: [facility] Work Phone: 09-01-2021 11:09-0400 Body weight 112.[address] Bean Brower Work Phone: [facility] Work Phone: 09-01-2021 11:09-0400 Diastolic blood pressure 70 mm[Hg] Dr. Bean Brower Work Phone: [facility] Work Phone: 09-01-2021 11:09-0400 Heart rate 63 /min Dr. Bean Brower Work Phone: [facility] Work Phone: 09-01-2021 11:09-0400 Respiratory rate 16 /min Dr. Bean Brower Work Phone: [facility] Work Phone: 09-01-2021 11:09-0400 SaO2% (BldA) [Mass fraction] 97 % Dr. Bean Brower Work Phone: [facility] Work Phone: 09-01-2021 11:09-0400 Systolic blood pressure 124 mm[Hg] Dr. Bean Brower Work Phone: [facility] Work Phone: 08-19-2021 14:34-0400 Body mass index (BMI) [Ratio] 38.7 kg/m2 Dr. Bean Brower Work Phone: [facility] Work Phone: 08-19-2021 14:34-0400 Body weight 112.[address] Bean Brower Work Phone: [facility] Work Phone: 08-19-2021 14:34-0400 Diastolic blood pressure 56 mm[Hg] Dr. Bean Brower Work Phone: [facility] Work Phone: 08-19-2021 14:34-0400 Heart rate 56 /min Dr. Bean Brower Work Phone: [facility] Work Phone: 08-19-2021 14:34-0400 Respiratory rate 16 /min Dr. Bean Brower Work Phone: [facility] Work Phone: 08-19-2021 14:34-0400 SaO2% (BldA) [Mass fraction] 98 % Dr. Bean Brower Work Phone: [facility] Work Phone: 08-19-2021 14:34-0400 Systolic blood pressure 110 mm[Hg] Dr. Bean Brower Work Phone: [facility] Work Phone: 08-03-2021 15:52-0500 SaO2% (BldA) [Mass fraction] 91 % Dr. Bean Brower Work Phone: [facility] Work Phone: 08-03-2021 11:08-0500 Heart rate 118 /min Dr. Bean Brower Work Phone: [facility] Work Phone: 08-03-2021 09:15-0500 Body temperature 98.2 [degF] Dr. Bean Brower Work Phone: [facility] Work Phone: 08-03-2021 09:15-0500 Diastolic blood pressure 78 mm[Hg] Dr. Bean Brower Work Phone: [facility] Work Phone: 08-03-2021 09:15-0500 Respiratory rate 16 /min Dr. Bean Brower Work Phone: [facility] Work Phone: 08-03-2021 09:15-0500 Systolic blood pressure 122 mm[Hg] Dr. Bean Brower Work Phone: [facility] Work Phone: 08-01-2021 19:15-0500 Body mass index (BMI) [Ratio] 39.5 kg/m2 Dr. Bean Brower Work Phone: [facility] Work Phone: 08-01-2021 19:15-0500 Body weight 114.[address] Bean Brower Work Phone: [facility] Work Phone: Encounters Encounter Date Encounter Type Care Provider Facility Start: 04-18-2025 ambulatory [place] Facility :[facility] Start: 04-11-2025 ambulatory Yesi Clinton Facili ty:[facility] Start: 04-11-2025 End: 04-11-2025 ambulatory Yesi Clinton Facility:[facility] Start: 02-23-2025 End: 02-23-[address] Glen Miguel DO -[facility] Work Phone: Start: 02-23-2025 End: 02-23-[address] Yesi Clinton MD Work Phone: -[facility] Start: 05-15-2024 End: 05-15-2024 ambulatory Yesi Clinton Facility:[facility] Start: 05-08-2024 End: 05-08-2024 ambulatory [facility] Start: 04-26-2024 End: 04-26-2024 ambulatory [facility] Start: 04-24-2024 End: 04-24-2024 ambulatory TOÑO Guerin [facility] Start: 04-21-2024 End: 04-21-2024 ambulatory [facility] Start: 04-19-2024 End: 04-20-2024 ambulatory Yesi Clinton Facility:[facility] Start: 04-18-2024 End: 04-18-2024 ambulatory Skip Rangel Facility:[facility] Start: 04-17-2024 End: 04-17-2024 ambulatory [facility] Start: 04-14-2024 End: 04-14-2024 ambulatory [facility] Start: 04-07-2024 End: 04-07-2024 ambulatory [facility] Start: 04-05-2024 End: 04-05-2024 ambulatory [facility] Start: 03-31-2024 End: 03-31-2024 ambulatory [facility] Start: 03-27-2024 End: 03-27-2024 ambulatory [facility] Start: 03-20-2024 End: 03-20-2024 ambulatory SHERRIE Tello [facility] Start: 03-17-2024 End: 03-17-2024 ambulatory [facility] Start: 03-15-2024 End: 03-15-2024 [facility] Start: 03-10-2024 End: 03-10-2024 [facility] Start: 03-08-2024 End: 03-08-2024 [facility] Start: 03-03-2024 End: 03-03-2024 [facility] Start: 03-01-2024 End: 03-01-2024 [facility] Start: 02-25-2024 End: 02-25-2024 [facility] Start: 02-11-[address] at[address] Dr[address] Yesi Clinton MD Work Phone: [facility] Start: 01-18-2024 End: 01-18-2024 [facility] Start: 09-07-2023 Non-patient / Non-visit Dr. Shirley Clinton Work Phone: [facility] Start: 09-07-2023 End: 09-08-2023 Evaluation and management of inpatient Dr. Yesi Clinton Work Phone: [facility] Work Phone: Start: 09-01-2023 End: 09-01-[address] Yesi Clinton Work Phone: [facility] Work Phone: Start: 08-13-2023 ambulatory THOR BAIN Facility :[facility] Start: 08-13-2023 End: 08-13-2023 Subsequent hospital visit by physician Thor Bain APRN-[employer] Work Phone: [facility] [place] Start: 07-29-2023 ambulatory SELF SELF Facility:[facility] Start: 07-21-2023 End: 07-21-[address] Yesi Clinton Work Phone: [facility] Work Phone: Start: 07-06-2023 End: 07-06-[address] Yesi Clinton Work Phone: [facility] Work Phone: Start: 07-06-2023 End: 07-06-[address] Yesi Clinton Work Phone: [facility] Work Phone: Start: 06-07-2023 Non-patient / Non-visit Dr. Shirley Clinton Work Phone: [facility] Start: 06-07-2023 End: 06-07-[address] Yesi Clinton Work Phone: [facility] Work Phone: Start: 06-07-2023 End: 06-07-[address] Yesi Clinton Work Phone: [facility] Work Phone: Start: 05-26-2023 End: 05-26-[address] Yesi Clinton Work Phone: [facility] Work Phone: Start: 05-26-2023 End: 05-26-[address] Yesi Clinton Work Phone: [facility] Work Phone: Start: 05-17-2023 End: 05-17-[address] Yesi Clinton Work Phone: [facility] Work Phone: Start: 05-17-2023 End: 05-17-[address] Yesi Clinton Work Phone: [facility] Internal Medicine Work Phone: Start: 05-04-2023 End: 05-04-[address] Yesi Clinton Work Phone: [facility] Work Phone: Start: 05-04-2023 Non-patient / Non-visit Dr. Shirley Clinton Work Phone: [facility] Start: 05-04-2023 End: 05-04-[address] Yesi Clinton Work Phone: [facility] Work Phone: Start: 05-04-2023 End: 05-04-[address] [facility] Work Phone: Start: 04-07-2023 End: 04-07-[address] Yesi Clinton Work Phone: [facility] Vascular Surgery Work Phone: Start: 04-06-2023 Non-patient / Non-visit Dr. Shirley Clinton Work Phone: [facility] Start: 04-06-2023 End: 04-06-[address] Yesi Clinton Work Phone: [facility] Work Phone: Start: 04-06-2023 End: 04-06-[address] [facility] Work Phone: Start: 04-05-2023 End: 04-05-[address] Yesi Clinton Work Phone: [facility] Work Phone: Start: 03-30-2023 End: 03-30-2023 ambulatory MANSI COMER Facility:[facility] Start: 03-30-2023 End: 03-30-2023 Subsequent hospital visit by physician Mansi Comer MD Work Phone: [facility] Comment on above: Persistent atrial fi brillation Arrived Start: 03-26-2023 End: 03-26-[address] Yesi Clinton Work Phone: [facility] Work Phone: Start: 03-26-2023 End: 03-26-[address] Yesi Clinton Work Phone: [facility] Work Phone: Start: 03-26-2023 End: 03-26-[address] Yesi Clinton Work Phone: [facility] Internal Medicine Work Phone: Start: 03-24-2023 End: 03-24-[address] Yesi Clinton Work Phone: [facility] Work Phone: Start: 03-24-2023 End: 03-24-[address] Yesi Clinton Work Phone: [facility] Work Phone: Start: 03-11-2023 Non-patient / Non-visit Dr. Shirley Clinton Work Phone: [facility] Work Phone: Start: 03-11-2023 Non-patient / Non-visit Dr. Shirley Clinton Work Phone: [facility] Start: 03-11-2023 End: 03-11-[address] Yesi Clinton Work Phone: [facility] Work Phone: Start: 03-11-2023 End: 03-11-[address] [facility] Work Phone: Start: 03-01-2023 End: 03-01-[address] Yesi Clinton Work Phone: [facility] Work Phone: Start: 02-25-2023 End: 02-25-2023 Emergency department patient visit Dr. Yesi Clinton Work Phone: [facility]-Emergency Department Work Phone: Start: 01-15-2023 ambulatory [facility] Facility: [facility] Start: 11-30-2022 End: 11-30-[address] Yesi Clinton Work Phone: [facility] Work Phone: Start: 11-19-2022 End: 11-19-2022 Encounter for general adult medical examination without abnormal findings Dr. Yesi Clinton Work Phone: [facility] Start: 11-19-2022 End: 11-19-[address] Yesi Clinton Work Phone: [facility] Internal Medicine Work Phone: Start: 11-08-2022 End: 11-08-2022 Emergency department patient visit Dr. Yesi Clinton Work Phone: [facility]-Emergency Department Work Phone: Start: 10-27-2022 End: 10-27-2022 Admission to same day surgery center Dr. Yesi Clinton Work Phone: [facility]-Neurodiagnostic Technologist/Special Procedures Start: 10-27-2022 End: 10-27-[address] Yesi Clinton Work Phone: [facility] Work Phone: Start: 10-20-2022 Non-patient / Non-visit Dr. Shirley Clinton Work Phone: [facility] Start: 10-01-2022 Non-patient / Non-visit Dr. Shirley Clinton Work Phone: [facility] Start: 10-01-2022 End: 10-01-[address] Yesi Clinton Work Phone: [facility] Work Phone: Start: 10-01-2022 End: 10-01-[address] Yesi Clinton Work Phone: [facility] Start: 09-28-[address] Parag Clinton Work Phone: [facility] Start: 09-17-2022 End: 09-17-[address] Yesi Clinton Work Phone: [facility] Start: 09-16-2022 End: 09-16-2022 Emergency department patient visit Dr. Yesi Clinton Work Phone: [facility]-Emergency Department Start: 06-10-2022 End: 06-10-[address] Yesi Clinton Work Phone: [facility] Orthopaedic Specia Start: 06-09-2022 End: 06-09-[address] Yesi Clinton Work Phone: [facility] Radiology Start: 04-20-2022 Non-patient / Non-visit Dr. Sherry Brower Work Phone: [facility] Start: 04-20-2022 End: 04-20-[address] Bean Brower Work Phone: [facility] Work Phone: Start: 04-20-2022 End: 04-20-[address] Bean Brower Work Phone: [facility] Start: 04-04-2022 End: 04-04-2022 Emergency department patient visit Dr. Yesi Clinton Work Phone: [facility]-Emergency Department Start: 04-03-2022 End: 04-03-2022 ambulatory PHONE MANAGER-Vika Remy NP Work Phone: [facility] Work Phone: Start: 04-03-2022 End: 04-03-[address] Yesi Clinton Work Phone: [facility]-Laboratory Start: 03-26-2022 End: 03-26-[address] Yesi Clinton Work Phone: [facility] Work Phone: Start: 03-26-2022 End: 03-26-[address] Yesi Clinton Work Phone: [facility]-Sleep Lab Start: 03-18-2022 End: 03-18-[address] Yesi Clinton Work Phone: [facility] Start: 03-05-2022 End: 03-05-[address] Yesi Clinton Work Phone: [facility]-Pulmonary Medicine [facility] Start: 02-19-2022 End: 02-19-[address] Yesi Clinton Work Phone: [facility]-Sleep Lab Start: 02-18-2022 End: 02-18-[address] Yesi Cardenas Phone: [facility] Start: 02-11-2022 Follow-up status Dr. Yesi Clinton Work Phone: [facility] Start: 02-11-2022 End: 02-11-2022 Emergency department patient visit Dr. Yesi Cardenas Phone: [facility]-Emergency Department Start: 02-03-2022 End: 02-03-[address] Yesi Cardenas Phone: [facility] Start: 01-14-2022 End: 01-14-[address] Yesi Cardenas Phone: [facility] Start: 01-08-2022 Non-patient / Non-visit Dr. Shirley Clinton Work Phone: [facility] Start: 01-08-2022 End: 01-08-2022 Admission to same day surgery center Dr. Yesi Clinton Work Phone: [facility]-Neurodiagnostic Technologist/Special Procedures Start: 01-08-2022 Non-patient / Non-visit Dr. Shirley Clinton Work Phone: [facility] Start: 12-30-2021 End: 12-30-[address] Yesi Clinton Work Phone: [facility] Start: 12-20-2021 End: 12-20-2021 Emergency department patient visit Dr. Bean Brower Work Phone: [facility]-Emergency Department Start: 12-12-2021 Non-patient / Non-visit Dr. Sherry Brower Work Phone: [facility] Start: 12-12-2021 End: 12-12-[address] Bean Brow[facility] Start: 12-10-2021 Non-patient / Non-visit Dr. Sherry Brower Work Phone: [facility] Start: 12-10-2021 End: 12-10-[address] Bean Brower Work Phone: [facility] r Services Start: 12-04-[address] Kelley Brower Work Phone: [facility] Start: 12-04-2021 End: 12-04-2021 Encounter for general adult medical examination without abnormal findings Dr. Bean Brower Work Phone: [facility] Internal Medicine Start: 12-04-2021 End: 12-04-[address] Bean Brower Work Phone: [facility] Internal Medicine Start: 11-20-2021 End: 11-20-[address] Bean Brower Work Phone: [facility] Internal Medicine Start: 11-18-2021 End: 11-19-2021 Emergency department patient visit Dr. Bean Brower Work Phone: [facility]-Emergency Department Start: 09-01-2021 End: 09-01-[address] Bean Brower Work Phone: [facility]-Laboratory, [facility] Start: 09-01-2021 End: 09-01-[address] Bean Brower Work Phone: [facility] Internal Medicine Start: 08-19-2021 End: 08-19-[address] Bean Brower Work Phone: [facility] Start: 08-04-2021 Non-patient / Non-visit Dr. Sherry Brower Work Phone: [facility] Start: 08-03-2021 Non-patient / Non-visit Dr. Sherry Brower Work Phone: [facility] Inpatient Physicians Start: 08-03-2021 Non-patient / Non-visit Dr. Sherry Brower Work Phone: [facility] Start: 08-02-2021 Non-patient / Non-visit Dr. Sherry Brower Work Phone: [facility] Inpatient Physicians Start: 08-01-2021 Non-patient / Non-visit Dr. Sherry Brower Work Phone: [facility] Inpatient Physicians Start: 08-01-2021 End: 08-03-2021 Evaluation and management of inpatient Dr. Bean Brower Work Phone: [facility] Start: 03-25-2018 End: 03-28-2018 [facility] Procedures Date Procedure Procedure Detail Performing Clinician Start: 02-23-2025 Radiologic examinati on knee [address] Yesi Clinton MD Work Phone: Start: 09-07-[address] Yesi Clinton Work Phone: Start: 08-13-2023 Echo transthorc r-t 2d w/wo m-mode rec f-up/lmtd Thor Bain PIPE FITTER SOFT COPPER-[employer] YOUTH SUPERVISOR Work Phone: Start: 07-06-2023 CT of abdominal [...] 03-30-2023 CBC AND ELECTRONIC DIFF Leigh Cuevas PIPE FITTER SOFT COPPER-[employer] YOUTH SUPERVISOR Work Phone: Start: 03-30-2023 Complete blood count with white cell differential, automated Leigh Cuevas PIPE FITTER SOFT COPPER-[employer] YOUTH SUPERVISOR Work Phone: Start: 03-30-2023 End: 03-30-2023 Creatinine blood Leigh Cuevas PIPE FITTER SOFT COPPER-[employer] YOUTH SUPERVISOR Work Phone: Start: 03-30-2023 Ct heart contrast [...] Date Care Activity Detail Author Start: 04-18-2025 [facility] Start: 09-08-2023 Patient discharge [facility] Start: 09-07-2023 Admission procedure [facility] Start: 09-07-2023 Ambulation without limitation [facility] Start: 09-07-2023 Assessment of risk of venous thromboembolism [facility] Start: 09-07-[address] [facility] Start: 09-07-2023 Elevation of head of bed [facility] Start: 09-07-2023 Insertion of catheter into peripheral vein [facility] Start: 09-07-2023 Measuring intake and output [facility] Start: 09-07-2023 Oxygen therapy [facility] Start: 09-07-2023 Patient referral to dietitian [facility] Start: 09-07-2023 Providing care according to standard [facility] Start: 09-07-2023 Provision of activity privileges [facility] Start: 09-07-2023 Referral to occupational therapist [facility] Start: 09-07-2023 Referral to service [facility] Start: 09-07-2023 Vital signs measurements [facility] Start: 09-07-2023 [facility] Start: 09-07-2023 Following clinical pathway protocol [facility] Start: 09-07-2023 Admission procedure [facility] Start: 05-11-2023 End: 03-30-2024 Cardiac telemetry MOBILE CARDIAC TELEMETRY ECG Routine Persistent atrial fibrillation Typical atrial flutter Expected: 05/11/2023, Expires: 03/30/2024 [facility] Comment on above: Expected: 05/11/2023, Expires: Start: 04-06-2023 Patient referral [facility] Work Phone: Start: 02-25-2023 [facility] Start: 01-29-2023 COVID-19 VACCINE ( season) COVID-19 VACCINE ( season) [facility] Start: 01-29-2023 Influenza vaccination INFLUENZA VACCINE (#1) [facility] Start: 09-16-2022 [facility] Start: 02-11-2022 Troponin I measurement [facility] Work Phone: Start: 02-11-2022 [facility] Work Phone: Start: 02-03-2022 Evaluation of diagnostic study results [facility] Work Phone: Start: 11-19-2021 [facility] Work Phone: Start: 11-18-2021 [facility] Work Phone: Start: 08-19-2021 Patient referral [facility] Work Phone: Start: 08-03-2021 Patient discharge [facility] Work Phone: Start: 08-02-2021 Care planning and problem solving actions [facility] Work Phone: Start: 08-02-2021 Referral to optical effects camera operator [facility] Work Phone: Start: 08-02-2021 Oxygen therapy [facility] Work Phone: Start: 08-01-2021 Care planning and problem solving actions [facility] Work Phone: Start: 08-01-2021 Ambulation without limitation [facility] Work Phone: Start: 08-01-2021 Assessment of risk of venous thromboembolism [facility] Work Phone: Start: 08-01-2021 Catheterization of vein [facility] Work Phone: Start: 08-01-2021 Insertion of catheter into peripheral vein [facility] Work Phone: Start: 08-01-2021 Measuring intake and output [facility] Work Phone: Start: 08-01-2021 Medication education [facility] Work Phone: Start: 08-01-2021 Providing care according to standard [facility] Work Phone: Start: 08-01-2021 [facility] Work Phone: Start: 08-01-2021 Following clinical pathway protocol [facility] Work Phone: Start: 08-01-2021 Admission procedure [facility] Work Phone: Start: 10-20-2018 Screening for malignant neoplasm of breast MAMMOGRAM SCREENING DISCUSSION [facility] Start: 2018 Pneumococcal vaccination [facility] Start: 10-10-2013 Tetanus vaccination TETANUS [facility] Start: 08-11-2003 Zoster vaccine hzv live for subcutaneous use ZOSTER (SHINGLES) VACCINE (1 of 2) [facility] Start: 1998 Screening for malignant neoplasm of colon COLORECTAL CANCER SCREENING DISCUSSION [facility] Start: 1993 Lipid panel LIPID SCREENING [facility] Start: 1993 Screening for malignant neoplasm of breast MAMMOGRAM SCREENING DISCUSSION [facility] Start: 1974 Screening for malignant neoplasm of cervix CERVICAL CANCER SCREENING DISCUSSION [facility] Start: 02-10-1954 COVID-19 VACCINE (#1) COVID-19 VACCINE (#1) [facility] Start: 1953 Hepatitis C screening HEPATITIS C VIRUS SCREENING [facility] Start: 1955 Screening for osteoporosis DEXA SCAN DISCUSSION [facility] Cardioversion [facility] Work Phone: DXA Bone [Mass/Area] Bone density [facility] Work Phone: Electrophysiology study EP PROCE DURE - EPS/ABLATION/DEVICE Electrophysiology Routine Persistent atrial fibrillation Typical atrial flutter 03/30/2023 2:51 PM EDT [facility] Evaluation of diagno stic study results [facility] Work Phone: MG Breast - bilatera l Screening [facility] Work Phone: MR Upper extremity.j oint WO and W contrast IV [facility] NM Heart Views W str ess and W radionuclide IV [facility] Work Phone: Patient Education [facility] Work Phone: Patient referral [facility] Work Phone: Polysomnography [facility] Work Phone: Troponin I measurement [facility] Work Phone: US Heart limited [facility] Work Phone: [facility] Work Phone: Immunizations Immunization Date Immunization Notes Care Provider Chriss milner 06-08-2022 influenza virus vaccine, unspecified formulation Mansi Comer MD Work Phone: [facility] Payers Date Payer Category Payer Self-pay [id number] 2022 Medicare MEDICARE MEDICAR E A AND B [id number] 2022-Present [address] [place] [address] [id number] 2021 Unknown [id number] 2021 Unknown [id number] 2018 Medicare [id number] 1955 Unknown [id number] 2.840.1.280482.3.579.2. 594 1953 Unknown [id number] 2.840.1.626430.3.579.2. 594 1953 Unknown [id number] 2.840.1.514021.3.579.2. 594 1953 Unknown [id number] 2.840.1.922232.3.579.2. 594 1953 Unknown [id number] 2.16.840.1.842939.3.579.2. 594 1953 Unknown [id number] 2.16.840.1.829834.3.579.2. 594 1953 Unknown [id number] 2.16.840.1.824412.3.579.2. 1242 1953 Unknown [id number] 2.16.840.1.581138.3.579.2. 1242 1953 Unknown [id number] 2.16.840.1.249417.3.579.2. 1242 1953 Unknown [id number] 2.16.840.1.616369.3.579.2. 1242 1953 Unknown [id number] 2.16.840.1.064563.3.579.2. 1242 1953 Unknown [id number] 2.16.840.1.933832.3.579.2. 1242 1953 Unknown [id number] 2.16.840.1.680657.3.579.2. 1242 1953 Unknown [id number] 2.16.840.1.023616.3.579.2. 1242 1953 Unknown [id number] 2.16.840.1.930881.3.579.2. 1242 1953 Unknown [id number] 2.16.840.1.171691.3.579.2. 1242 1953 Unknown [id number] 2.16.840.1.796873.3.579.2. 1242 1953 Unknown [id number] 2.16.840.1.132427.3.579.2. 1242 1953 Unknown [id number] 2.16.840.1.969615.3.579.2. 1242 1953 Unknown [id number] 2.16.840.1.692278.3.579.2. 1242 1953 Unknown [id number] 2.16.840.1.338246.3.579.2. 1242 1953 Unknown [id number] 2.16.840.1.486976.3.579.2. 1242 1953 Unknown [id number] 2.16.840.1.484704.3.579.2. 1243 1953 Unknown [id number] 2.16.840.1.348063.3.579.2. 1243 1953 Unknown [id number] 2.16.840.1.306985.3.579.2. 1243 Medicaid [id number] Private Health Insurance SELF PAY INSURAN CE [id number] Unknown [id number] Unknown [id number] 2.16.840.1.261326.3.579.2. 462 Unknown [id number] 2.16.840.1.246565.3.579.2. 462 Unknown [id number] 2.16.840.1.706556.3.579.2. 462 Unknown [id number] 2.16.840.1.145586.3.579.2. 462 Unknown [id number] 2.16.840.1.976654.3.579.2. 462 Unknown [id number] 2.16.840.1.033991.3.579.2. 462 Unknown [id number] 2.16840.1.983531.3.579.2. 462 Unknown [id number] 2.16840.1.122885.3.579.2. 462 Unknown [id number] 2.16840.1.717856.3.579.2. 462 Social History Date Type Detail Facility Start: 11-18-2021 End: 09-01-2023 Tobacco smoking status NHIS Unknown if ever smoked [facility] Start: 1955 Sex Assigned At Female [facility] Start: 03-30-2023 End: 02-07-2024 Tobacco smoking status NHIS Ex-smoker [facility] End: 05-31-2012 History of tobacco use Current smoker [facility] End: 05-31-2012 History of tobacco use Cigarette Smoker [facility] Start: 03-30-2023 End: 07-29-2023 Tobacco use and exposure Smokeless tobacco non-user [facility] Start: 03-30-2023 End: 07-29-2023 Alcohol intake Ex-drinker (finding) [facility] Start: 03-30-2023 End: 07-29-2023 History of Social function [facility] Start: 03-30-2023 End: 07-29-2023 Tobacco use panel [facility] Start: 1955 Sex Assigned At Not on file [facility] Medical Equipment Procedure Code Equipment Code Equipment Origin al Text Equipment Identifier Dates Endarterectomy, femoral Ligation clip, metallic ()[id number] FDA Start: 09-07-2023 Endarterectomy, femoral Ligation clip, metallic ()[id number] FDA Start: 09-07-2023 ([id number]) Metal-backed patella prosthesis ()[id number] FDA Start: 02-22-2024 ([id number]) Coated knee femu r prosthesis ()[id number] FDA Start: 02-22-2024 ([id number]) Coated knee tibi a prosthesis ()[id number] FDA Start: 02-22-2024 Tibial insert ()[id number] FDA Start: 02-22-2024 Goals Date Patient Goal Desired Activity /State Functional Status Date Assessment Result Facility 09-08-2023 Functional status Ambulates [facility] Work Phone: 08-03-2021 Functional status Bedside Commode [facility] Work Phone: Mental Status Date Assessment Result Facility 09-08-2023 Cognitive function Voice/Name [facility] Work Phone: 02-25-2023 Cognitive function Level Of Cons ciousness Awake;Alert;Appropriate [facility] Work Phone: 11-08-2022 Cognitive function Voice/Name [facility] Work Phone: 09-16-2022 Cognitive function Level Of Cons ciousness Awake;Alert;Appropriate;Follow s Commands [facility] Work Phone: 04-04-2022 Cognitive function Level Of Cons ciousness Awake;Alert;Appropriate;Follow s Commands [facility] Work Phone: 02-11-2022 Cognitive function Voice/Name [facility] Work Phone: 11-18-2021 Cognitive function Level Of Cons ciousness Awake;Alert;Appropriate [facility] Work Phone: 08-03-2021 Cognitive function Voice/Name [facility] Work Phone: Clinical Notes 08-01-2021 to 02-23-2025 Note Date & Type Note Facility 02-23-[address] [facility] 02-23-2025 Radiology Diagnostic study note [facility] Imaging Services [address] [place] [address] Knee 3 Views MR#: [id number] Acct: [id number] Name: BEULAH MCPHERSON Rep #: [id number] : 1955 F 69 From: Fransisco Blanco DO PCP: Dr. Yesi Clinton MD Status: D EP AMB Study:Knee 3 Views Date of Exam: 5 Exam# [id number] Ordering Dr: Glen Miguel DO PROCEDURE: KNEE [...] evidence of fracture or loosening. Reading Location: [id number] CC: Dr. Yesi Clinton MD; Dr. Glen Miguel DO ~ Concrete Mixer Operator: Signed [facility] 09-07-2023 History and physi gini note Note Date/Time September 07, 2023 7:33am [facility] Medical Records Department [address] [place] [address] History & Physical Exam 09/07/23 0731 MR#: [id number] Acct: [id number] Name: BEULAH MCPHERSON Rep #:[id number] : 1955 68 From: Doug Nowak MD PCP: Dr. Yesi Clinton MD Status:A DM IN Location: [place] [address] HPI - General General Date of Admission: 09/07/23 HPI Narrative BEULAH MCPHERSON, is a 68 F who presents with an iatrogenic right SFA pseudoaneurysmafter cardiac ablation. This has failed to resolve with observation. Presents for open repair [facility] Medical History Ambulates with cane Anemia Arthritis [...] Clinton MD; Dr. Doug Nowak MD~ Signed [facility] Work Phone: [phone] 113-473710-31-2023 Nurse Note* Nursing Notes - Tahira Rooney [...] prior to discharge. Tahira Rooney RN U [facility]10-31-2023 Miscellaneous Notes* Nursing Notes - Tahira Rooney [...] and was unable to urinate. Reported to PHONE MANAGER that bladder scan showed 500ml of urine. Straight cath performed and 400 ml of urine removed from bladder patient stated feeling relief of pressure. No further needs at this time. [facility] Nurse Note* Nursing Notes - Tahira Rooney RN - 03/30/2023 6:47 PM EDT Pt sitting on the side of the bed. Tahira Rooney RN [facility]10-31-2023 Hospital Discharge instructions* Discharge Instr - Activity* Ave Serna APRN-[employer] YOUTH SUPERVISOR - 03/30/2023 4:27 PM EDT Post Ablation [...] Where can you learn more? Go to [email or web address] * Discharge Instr - Wound Care* JESÚS [...] immediate medical care. [facility]* Nursing Notes - Jan Forrest RN - 03/30/2023 4:03 PM EDT Patient tried to use the bedpan post procedure and was unable to urinate. Reported to PHONE MANAGER that bladder scan showed 500ml of urine. Straight cath performed and 400 ml of urine removed from bladder patient stated feeling relief of pressure. No further needs at this time. [facility] Evaluation note* Diagnosis Onset Date Resolution Status Malaise and fatigue acute Foul smelling urine resolved Pseudoaneurysm of femoral ar gail following procedure acute History of cardiac radiofreq uency ablation (RFA) March 30, 2023 acute Near syncope acute Palpitations acute Pseudoaneurysm of femoral ar gail following procedure acute Sleep apnea acute Pseudoaneurysm of femoral ar gail following procedure acute [facility] Work Phone: 1(365) 848-589510-31-2023 History and physical note* JESÚS Johnson - [...] She is anticoagulated with Eliquis for EDGARD [id number] of 3. Patient Active Problem List Diagnosis [...] tablet by mouth 2 times daily. 03/28/2023 [id number] traMADol 50 MG tablet Take 1 tablet [...] was the last dose taken. Yesterday evening [id number]- Vasc score: 3 ( HF, age, gender [...] she consents to proceed. Mansi Comer MD, [facility] Genevieve Jett Chair in Cardiac Electrophysiology Professor of Clinical Medicine [facility]10-31-2023 History and physical note* Ave Jermaine Serna, PIPE FITTER SOFT COPPER-DAY HAUL YOUTH SUPERVISOR - 03/30/2023 7:50 AM EDT Images from [...] She is anticoagulated with Eliquis for EDGARD [id number] of 3. Patient Active Problem List Diagnosis [...] tablet by mouth 2 times daily. 03/28/2023 [id number] traMADol 50 MG tablet Take 1 tablet [...] was the last dose taken. Yesterday evening [id number]- Vasc score: 3 ( HF, age, gender [...] she consents to proceed. Mansi Comer MD, [facility] Genevieve Jett Chair in Cardiac Electrophysiology Professor of Clinical Medicine documented in [facility]2023 History and physical note Author Dr. Rangel [facility] October 20, 2022 5:16pm Note Date/Time October 20, 2022 10:31 am [facility] Medical Records Department [address] [place] [address] History & Physical Exam 10/20/22 1029 MR#: [id number] Acct: [id number] Name: BEULAH MCPHERSON Rep #:[id number] : 1955 67 From: Barbie Valdez PHONE MANAGER-C PCP: Dr. Yesi Clinton MD Status:P RE [facility] Location: [facility] History and Physical Date of Admission: 10/27/22 Beulah Mcpherson is a 67 year old female who presents today for a cardiac catheterization. She has a history of atrial fibrillation, nonischemic cardiomyopathy, and hyperlipidemia. Patient was evaluated at [facility] in July 2021 for atrial fibrillation with [...] EMR Allergies See EMR Medications See EMR [facility] Medical History? Arthritis Atrial fibrillation with rapid [...] and Plan (1) Atrial fibrillation: ?Status:?Acute ?Comment: [facility] 01/08/2022, 02/11/2022; ?Plan: Patient has a history [...] Barbie LAURA> Cosigner Signature (if applicable): 10/20/22 9115 <Electronically signed by Skip Rangel MD> CC: VALENTÍN Tolbert; Dr. Skip Rangel MD; Dr. Yesi Clinton MD~ Signed [facility] Work Phone: [phone]) 855-888603-04-2022 Evaluation note* Diagnosis Onset Date Resolution Status Atrial fibrillation, new onset August 01, 2021 resolved CHF (congestive heart failure) resolved Elevated troponin I level re solved Atrial fibrillation acute HFrEF (heart failure with re duced ejection fraction) acute Hyperlipidemia chronic Atrial fibrillation acute HFrEF (heart failure with re duced ejection fraction) acute Lumbar radiculopathy chronic [facility] Work Phone: [phone]) 638-770803-04-2022 Evaluation note* Diagnosis Onset Date Resolution Status [...] tract infection) noneactive Orthostatic hypotension none active [facility] Work Phone: Chief complaint+Reason for visit Narrative* [...] apnea Pseudoaneurysm of femoral artery following procedure [facility] Work Phone: Evaluation note* Diagnosis Onset Date [...] resolve d UTI (urinary tract infection) noneactive [facility] Work Phone: Evaluation note* Diagnosis Onset Date [...] resolve d UTI (urinary tract infection) noneactive [facility] Work Phone: evaluation note* Diagnosis Onset Date [...] failure with reduced ejection fraction) chronic Hyperlipidemia [facility] Work Phone: evaluation note* Diagnosis Onset Date [...] failure with reduced ejection fraction) chronic Hyperlipidemia [facility] Work Phone: Evaluation note* Diagnosis Onset Date Resolution Status Atrial fibrillation acute HFrEF (heart failure with reduced ejection fraction) chronic Hyperlipidemia chronic Atrial fibrillation acute Atrial fibrillation acute Hypersomnolence acute HFrEF (heart failure with reduced ejection fraction) chronic Hyperlipidemia chronic BMI 35.0-35.9,adult acute Sleep apnea acute Atrial fibrillation acute Hypersomnolence acute HFrEF (heart failure with reduced ejection fraction) chronic Hyperlipidemia [facility] Work Phone: Evaluation note* Diagnosis Onset Date Resolution Status Atrial fibrillation acute BMI 35.0-35.9,adult acute Sleep apnea acute Primary osteoarthritis of right knee acute Atrial fibrillation acute Palpitations acute Tachycardia acute HFrEF (heart failure with reduced ejection fraction) chronic Hyperlipidemia [facility] Work Phone: Evaluation note* Diagnosis Onset Date Resolution Status Atrial fibrillation acute Palpitations acute Tachycardia acute HFrEF (heart failure with reduced ejection fraction) chronic Hyperlipidemia [facility] Work Phone: Evaluation note* Diagnosis Onset Date Resolution Status Atrial fibrillation acute Health care maintenance acut e HFrEF (heart failure with reduced ejection fraction) chronic Primary osteoarthritis of right knee chronic Atrial fibrillation acute HFrEF (heart failure with reduced ejection fraction) [facility] Work Phone: Evaluation note* Diagnosis Onset Date Resolution Status Atrial fibrillation acute Health care maintenance acut e HFrEF (heart failure with reduced ejection fraction) chronic Primary osteoarthritis of right knee chronic Atrial fibrillation acute HFrEF (heart failure with reduced ejection fraction) chronic Atrial fibrillation acute HFrEF (heart failure with reduced ejection fraction) [facility] Work Phone: Evaluation note* Diagnosis Onset Date Resolution Status Atrial fibrillation acute HFrEF (heart failure with reduced ejection fraction) chronic Atrial fibrillation acute HFrEF (heart failure with reduced ejection fraction) chronic Left shoulder pain acute Osteoarthritis (arthritis du e to wear and tear of joints) chronic Localized skin mass, lump, or swelling acute Cervical radiculopathy [facility] Work Phone: Evaluation note* Diagnosis Persistent atrial fibrillation Atrial fibrillation Typical atrial flutter Atrial flutter Persistent atrial fibrillation Atrial fibrillation Typical atrial flutter Atrial flutter documented in this encounter [facility] Diagnosis Persistent atrial fibrillation Atrial fibrillation Typical atrial flutter Atrial flutter documented in this encounter [facility] Diagnosis Onset Date Resolution Status Atrial fibrillation acute HFrEF (heart failure with reduced ejection fraction) chronic Left shoulder pain acute Osteoarthritis (arthritis du e to wear and tear of joints) chronic Localized skin mass, lump, or swelling acute Cervical radiculopathy [facility] Work Phone: Evaluation note* Diagnosis Onset [...] failure with re duced ejection fraction) chronic [facility] Work Phone: Evaluation note* Diagnosis Onset Date [...] left shoulder acute Cervical radiculopathy chron ic [facility] Work Phone: Evaluation note* Diagnosis Onset Date [...] smelling urine acute Malaise and fatigue acute [facility] Work Phone: Evaluation note* Diagnosis Onset Date [...] smelling urine acute Malaise and fatigue acute [facility] Work Phone: Evaluation note* Diagnosis Paroxysmal atrial fibrillation Atrial fibrillation Hypertension, essential Unspecified essential hypertension [facility] Diagnosis Onset Date Resolution Status Admit Date Bilateral carpal tunnel syndrome acute February 23, 2025 10:23am S/P total knee arthroplasty acute February 23, 2025 10:23am [facility] Work Phone: [facility] Work Phone: Hospital Discharge instructions Additional Instructions I spoke with Dr. Warner who is on-call for Dr. Rangel. He recommended discontinuing her flecainide and increasing your carvedilol to 25 mg p.o. twice daily as we discussed. He recommended following up with the cardiology office on Wednesday.[facility] Work Phone: Progress note Author Glen [facility] Note Date/Time February 23, 2025 11:20am [facility] [address] [place] [address] OFFICE VISIT Date of Service: 02/23/25 MR#: [id number] Acct: [id number] Name: BEULAH MCPHERSON Rep #: [id number] : 1955 Provider: Dr. Karel Miguel, Age/Sex: 69/F Location: [facility] Status: Signed Intake Vital Signs 04/18/24 13:17 [...] 2 % topical 1 applic topical BID VT N skin 02/03/22 02/23/25 History powder acetaminophen [...] x-ray right knee: Severe end stage arthrosis [id number] there is lateral subluxation of the tibia [...] fallen in the past year?: No 02/23/25 0781 <Electronically signed by Glen powers DO> Date _ Glen Randall Signature: Date (if applicable) CC: ~ [facility] Work Phone: Reason for referral (narrative)No reason for referral information availableSt. [facility] Work Phone: Summary Purpose Family History No Family History Records Found Relationship Condition Age at Onset Recorded Date/T cecile father Cerebrovascular accident (CVA) Unknown Malignant neoplasm of colon Unknown Advance Directives No Advanced Directives Records Found Advance Directive Response Recorded Date/ Time Living Will No November 18, 2021 10:02pm Power of Chip Tuner No November 18 10:02pm Advance Directive Response Recorded Date/ Time Living Will No December 20, 2021 10:45am Power of Chip Tuner No December 20 10:45am Advance Directive Response Recorded Date/ Time Advance Directives No January 08, 2022 10:22am Living Will No February 11, 2022 10:18am Power of Chip Tuner No January 10:18am Advance Directive Response Recorded Date/ Time Advance Directives No January 08, 2022 10:22am Living Will No April 04 11:10am Power of Chip Tuner No April 04, 2022 11:10am Advance Directive Response Recorded Date/ Time Advance Directives No January 08, 2022 9:22am Living Will No April 04 10:10am Power of Chip Tuner No April 04, 2022 10:10am Advance Directive Response Recorded Date/ Time Advance Directives No January 08, 2022 10:22am Living Will No September 16, 2022 4:27pm Power of Chip Tuner No September 16 4:27pm Advance Directive Response Recorded Date/ Time Advance Directives No October 27 10:33am Living Will No October 27, 2022 1 0:33am Power of Chip Tuner No October 27, 2022 10:33am Advance Directive Response Recorded Date/ Time Advance Directives No May 30th, 202 3 10:33am Living Will No February 25, 2023 5:18pm Power of Chip Tuner No January 5:18pm Latest Code Status on File Code Status Date Activated Date Inactivated Comments Full Code 03/30/2023 4:40 PM Advance Directive Response Recorded Date/ Time Advance Directives No October 27 3 9:33am Living Will No February 25, 2023 4:18pm Power of Chip Tuner No January 4:18pm Advance Directive Response Recorded Date/ Time Advance Directives No October 27 3 10:33am Living Will No September 07, 2023 10:25am Power of Chip Tuner No September 06 4 10:25am Advance Directive Response Recorded Date/ Time Advance Directives No October 27 3 10:33am Chief Complaint and Reason for Visit Chief Complaint AFIB RVR AFIB RVR AFIB RVR AFIB RVR AFIB RVR Amb Documentation 2 WK S/P PCU PHONE MANAGER, EST CARE, NPP SENT [facility] Reason for Visit Atrial fibrillation, new onset CHF (congestive heart failure) Elevated troponin I level Atrial fibrillation HFrEF (heart failure with reduced ejection fraction) Hyperlipidemia Atrial fibrillation HFrEF (heart failure with reduced ejection fraction) Lumbar radiculopathy Chief Complaint AFIB RVR AFIB RVR AFIB RVR AFIB RVR AFIB RVR Amb Documentation 2 WK S/P PCU PHONE MANAGER, EST CARE, NPP SENT [facility] Reason for Visit Atrial fibrillation, new onset CHF (congestive heart failure) Elevated troponin I level Atrial fibrillation HFrEF (heart failure with reduced ejection fraction) Hyperlipidemia Atrial fibrillation HFrEF (heart failure with reduced ejection fraction) Lumbar radiculopathy Atrial fibrillation Generalized weakness HFrEF (heart failure with reduced ejection fraction) Candidiasis of breast UTI (urinary tract infection) Orthostatic hypotension Chief Complaint 2 WK S/P PCU PHONE MANAGER, EST CARE, NPP SENT [facility] 3 M FU DYSPNEA *JUAN CARLOS* REDUCED [...] weakness UTI (urinary tract infection) Chief Complaint PHONE MANAGER, EST CARE, NPP SE NT WEAKNESS [facility] 3 M FU DYSPNEA *JUAN [...] weakness UTI (urinary tract infection) Chief Complaint [facility] FU [place] 3 M FU DYSPNEA *JUAN [...] CPAP *INVENTORY TAGGED Reason for Visit [facility] maintena nce HFrEF (heart failure with reduced [...] flutter Procedures MOBILE CARDIAC TELEMETRY Ave Serna, GIRMA-DAY HAUL YOUTH SUPERVISOR [address] [place] [id number] Referral ID Status Reason Start Date Expiration Date V isits Requested Visits Authorized [id number] New Request 03/30/2023 04/23/2024 1 1 Specialty Diagnoses / Procedures Referred By Marnie michael Referred To Contact Diagnoses Persistent atrial fibrillation Typical atrial flutter Procedures CT CARDIAC PULMONARY VENOGRAM VT CHG CT HEART CONTRAST EVAL CARDIAC STRUCT/MORPH Mansi Comer MD [address] [place] [address] Referral ID Status Reason Start Date Expiration Date V isits Requested Visits Authorized [id number] New Request 01/16/2023 02/10/2024 1 1 Specialty Diagnoses / Procedures Referred By Marnie t Referred To Contact Diagnoses Paroxysmal atrial fibrillation Hypertension, essential Procedures ECHOCARDIOGRAM LIMITED/FOLLOWUP VT ECHO HEART XTHORACIC,LIMITED VT DOPPLER ECHO HEART,LIMITED,F/U VT DOPPLER COLOR FLOW VELOCITY MAP Thor Bain, PIPE FITTER SOFT COPPER-DAY HAUL YOUTH SUPERVISOR [id number] [place] [address] Referral ID Status Reason Start Date Expiration Date V isits Requested Visits Authorized [id number] New Request 07/29/2023 08/22/2024 1 1 Additional Source Comments INFORMATION SOURCE (unrecogn ized section and content) DATE CREATED AUTHOR 11/26/2017 [facility] DATE CREATED AUTHOR AUTHOR'S ORGANIZ ATION 08/14/2023 [facility] DATE CREATED AUTHOR AUTHOR'S ORGANIZ ATION 10/31/2023 [facility] DATE CREATED AUTHOR AUTHOR'S ORGANIZ ATION 05/16/2024 [facility] DATE CREATED AUTHOR AUTHOR'S ORGANIZ ATION 04/12/2025 [facility] Goals (unrecognized section and content) Goals may [...] Rangel MD Other Provider Active Barbie Tolbert PHONE MANAGER, PHONE MANAGER-C Attending Provider Active Team Status: Inactive Member [...] Provider, Refer ring Provider Active Ashkan Remy PHONE MANAGER, PHONE MANAGER-C Attending Provider Active Team Status: Inactive Member [...] MD Primary Care Provider Active Ashkan Remy PHONE MANAGER, PHONE MANAGER-C Attending Provider Active Team Status: Inactive Member Role Status Dates Dr. Yesi Clinton MD Primary Care Provider Active Ashkan Remy PHONE MANAGER, PHONE MANAGER-C Attending Provider, Referring Pro vider Active Team [...] P rovider, Attending Provider, Referring Provider Active Fur Pointer Relationship Specialty Start Date End Date Yesi Clinton MD [address] [phone] PCP - General Internal Medicine 10/27/22 Rhona Morrissey PA [address] [place] [address] Physician Unit Secy - Medical 10/27/22 Skip Rangel MD [address] [place] [address] Cardiovascular Disease 10/27/22 Fur Pointer Relationship Specialty Start Date End Date Yesi Clinton MD [address] [facility] [address] [place] [address] PCP - General Internal Medicine 10/27/22 Rhona Morrissey PA [address] [facility] [address] Physician Unit Secy - Medical 10/27/22 Skip Rangel MD [address] [facility] [address] Cardiovascular Disease 10/27/22 Team Status: [...] Nowak MD Attending Provider Active Ashkan Remy PHONE MANAGER, PHONE MANAGER-C Referring Provider Active Team Status: Inactive Member [...] MD Attending Provider, Referring Pr ovider Active Fur Pointer Relationship Specialty Start Date End Date Yesi Clinton MD [address] [facility] [address] [place] [address] PCP - General Internal Medicine 10/27/22 Rhona Morrissey PA [address] [place] [address] Physician Unit Secy - Medical 10/27/22 Skip Rangel MD [address] [place] [address] Cardiovascular Disease 10/27/22 Team Status: [...] Referring Provider, Other Provider Active Ashkan Remy PHONE MANAGER, PHONE MANAGER-C Other Provider Active Team Status: Inactive Member Role Status Dates Dr. Yesi Clinton MD Primary Care Provider Active Dr. Doug Nowak MD Admit Provider, Att ending Provider, Referring Provider Active Ashkan Remy PHONE MANAGER, PHONE MANAGER-C Other Provider Active Team Status: Active Member [...] fibrillation [I48.19] Typical atrial flutter [I48.3] Procedures VT COMPRE EP EVAL ABLTJ ATR FIB PULM VEIN ISOLATION VT COMPRE EP EVAL ABLTJ 3D MAPG TX SVT ABLATION SCHED INTERCARDIAC A-FIB TRANSEPTAL BY PULM VEIN ISOLATION W/EP EVAL (10435) ABLATION SCHED INTERCARDIAC A-FLUTTER ATRIAL/SVT W/EP EVAL PACING/HIS/ARRYTHMIA INDUCT (86544) Mansi Comer MD [address] [place] [phone] [facility] [address] [place] [address] Referral ID Status Reason Start Date Expiration Date Visits Re quested Visits Authorized [id number] 1 1 Specialty Diagnoses / Procedures Referred By Marnie michael Referred To Contact Diagnoses Paroxysmal atrial fibrillation Hypertension, essential Procedures ECHOCARDIOGRAM LIMITED/FOLLOWUP VT ECHO HEART XTHORACIC,LIMITED VT DOPPLER ECHO HEART,LIMITED,F/U VT DOPPLER COLOR FLOW VELOCITY MAP Thor Bain, 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 [facility]. provides no warranty or guarantee of the accuracy or completeness of information in this document.
== END | disposition home or self-care (01) ==
LOC: NM 09:52
PROVIDERS: PCP Internal Medicine; Referring Provider Nurse Practitioner Family; Visit Provider Nurse Practitioner Family
DX: I48.0 Paroxysmal atrial fibrillation (principal); G56.03 Carpal tunnel syndrome, bilateral upper limbs
CPT/HCPCS: 78803; A9503